=== PATIENT | male | born 1955 | race Hispanic/Latino ===

== ENCOUNTER 2018-08-13 08:07 | Emergency (ER) | payer BC ==
--- OUTSIDE RECORDS SUMMARY | 2018-08-13 08:10 | XMS REPORT ---
:1955 Author Organization [employer] Care Team Providers Name Role Phone Mccracken, Na Provider Role Unavailable Allergies No Known Allergies Problems Problem Type Condition Code Onset Dates Condition Status Problem Unspecified atherosclerosis of I70.209 Active [place] arteries of extremities, unspecified extremity Problem Memory changes R41.3 Active Problem Type 2 diabetes mellitus with E11.51 Active diabetic peripheral angiopathy without gangrene Problem Tremor R25.1 Active Problem Pain in right hip M25.551 Active Problem Multiple joint pain M25.50 Active Problem Intermittent claudication I73.9 Active Problem Allergic arthritis M13.89 Active Problem Pain in left hip M25.552 Active Problem 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
--- OUTSIDE RECORDS SUMMARY | 2018-08-13 08:10 | XMS REPORT ---
:1955 Author Organization [employer] Care Team Providers Name Role Phone Mccracken, Na Provider Role Unavailable Allergies No Known Allergies Problems Problem Type Condition Code Onset Dates Condition Status Problem Unspecified atherosclerosis of I70.209 Active [place] arteries of extremities, unspecified extremity Problem Memory [...]
--- OUTSIDE RECORDS SUMMARY | 2018-08-13 08:10 | XMS REPORT ---
:1955 Author Organization [employer] Care Team Providers Name Role Phone Mccracken, Na Provider Role Unavailable Allergies, Adverse Reactions, Alerts Substance Reaction Event Type Lyrica Info Not Available Drug Allergy Cipro Info Not Available Drug Allergy Problems Problem Type Condition Code Onset Dates Condition Status Assessment Multiple joint pain M25.50 Active Assessment Tremor R25.1 Active Assessment Intermittent claudication I73.9 Active Assessment Peripheral vascular disease I73.9 Active Problem Stented coronary artery Z95.5 Active Assessment 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 type 2 diabetes mellitus Problem Depression with anxiety F41.8 Active Assessment Depression with anxiety F41.8 Active Problem Unspecified atherosclerosis of I70.209 Active [place] arteries of extremities, unspecified extremity Problem Memory changes R41.3 Active Problem Type 2 diabetes mellitus with E11.51 Active diabetic peripheral angiopathy without gangrene Problem Tremor R25.1 Active Problem Pain in right hip M25.551 Active Assessment Type 2 diabetes mellitus with E11.51 Active diabetic peripheral angiopathy without gangrene Assessment HTN (hypertension) I10 Active Problem Multiple joint pain M25.50 Active Assessment Hyperlipidemia E78.5 Active Problem Intermittent claudication I73.9 Active Problem Allergic arthritis M13.89 Active Problem Pain in left hip M25.552 Active Problem 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 type 2 diabetes mellitus Problem Peripheral vascular disease I73.9 Active Problem CAD (coronary artery disease) I25.10 Active Assessment Unspecified atherosclerosis of I70.209 Active [place] arteries of extremities, unspecified extremity Problem Diabetes E11.9 Active Problem Hyperlipidemia E78.5 Active Problem HTN (hypertension) I10 Active Problem Obesity E66.9 Active Medications Medication Code Code Instructions Start End Status Dosage System Date Date Glyburide-Metfo [facility] 75183558053 5-500 MG Orally Active 1 tablet rmin twice a day with a meal Trulicity [facility] 15528138855 1.5 MG/0.5ML Active 1.5 mg Subcutaneous once a week Glucovance [facility] 23917467555 5-500 MG Orally Active 2 tablet twice a day with a meal Wellbutrin SR [facility] 99976175639 150 MG Active TAKE 1 TABLET BY MOUTH EVERY DAY BEFORE A MEAL Bystolic [facility] 81518579070 10 MG Orally Active 1 tablet Once a day Clopidogrel [facility] 60278621135 75 MG Active TAKE 1 Bisulfate TABLET DAILY Lantus SoloStar [facility] 95574907149 100 UNIT/ML Active 50 units Subcutaneous daily as directed Gabapentin [facility] 42555375145 100 MG Orally Inactive 1 capsule Three times a day Glyburide-Metfo [facility] 26989902780 5-500 MG Orally Active 2 tablet rmin twice a day with a meal Cilostazol [facility] 60717049291 100 MG Orally Active 1 tablet 30 once a day minutes before or 2 hours after breakfast and dinner Cozaar [facility] 76312217585 100 MG Orally Active 1 tablet Once a day BusPIRone HCl [facility] 86265865584 10 MG Orally Active 1 tablet Twice a day Aspir-81 [facility] 28472555405 81 MG Orally Active 1 tablet Once a day Gabapentin [facility] 45228918778 300 MG Orally Inactive 1 capsule three times a day Humalog KwikPen [facility] 41180733960 100 UNIT/ML Active 17 units Subcutaneous TID before meals Wellbutrin SR [facility] 02352227171 150 MG Orally Active 1 tablet twice daily Crestor [facility] 65601255800 10 MG Orally Active 1 tablet Once a day Zyrtec Allergy [facility] 79609350284 10 MG Orally Active 1 tablet Once a day Rosuvastatin [facility] 44323000683 10MG Active TAKE 1 Calcium TABLET DAILY AT BEDTIME Plavix [facility] 03273741821 75 MG Orally Active 1 tablet Once a day Results No Known Results Summary Purpose [employer]ClinicalWorks Submission
--- OUTSIDE RECORDS SUMMARY | 2018-08-13 08:10 | XMS REPORT ---
:1955 Author Organization [employer] Care Team Providers Name Role Phone Mccracken, Na Provider Role Unavailable Allergies, Adverse Reactions, Alerts Substance Reaction Event Type Lyrica Info Not Available Drug Allergy Cipro Info Not Available Drug Allergy Problems Problem Type Condition Code Onset Dates Condition Status Assessment Memory changes R41.3 Active Assessment Tremor R25.1 Active Assessment Intermittent claudication I73.9 Active Assessment Pain in right hip M25.551 Active Problem Hyperlipidemia E78.5 Active Assessment Pain in left hip M25.552 Active Problem Unspecified atherosclerosis of I70.209 Active [place] arteries of extremities, unspecified extremity Assessment Peripheral vascular disease I73.9 Active Problem Type 2 diabetes mellitus with E11.51 Active diabetic peripheral angiopathy without gangrene Problem Allergic arthritis M13.89 Active Problem Memory changes R41.3 Active Problem Tremor R25.1 Active Problem Pain in left hip M25.552 Active Assessment Hyperlipidemia E78.5 Active Assessment Depression with anxiety F41.8 Active Problem Pain in right hip M25.551 Active Assessment 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 type 2 diabetes mellitus Problem Depression with anxiety F41.8 Active Problem Stented coronary artery Z95.5 Active Problem 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 type 2 diabetes mellitus Problem Intermittent claudication I73.9 Active Assessment Unspecified atherosclerosis of I70.209 Active [place] arteries of extremities, unspecified extremity Problem Peripheral vascular disease I73.9 Active Assessment HTN (hypertension) I10 Active Assessment Type 2 diabetes mellitus with E11.51 Active diabetic peripheral angiopathy without gangrene Problem Obesity E66.9 Active Problem Diabetes E11.9 Active Problem CAD (coronary artery disease) I25.10 Active Problem HTN (hypertension) I10 Active Medications Medication Code Code Instructions Start End Status Dosage System Date Date Lantus SoloStar ND 07512038509 100 UNIT/ML Active as directed Subcutaneous Crestor ND 00792199820 10 MG Orally Active 1 tablet Once a day Gabapentin NDC 33013806456 100 MG Orally Inactive 1 capsule Three times a day Glyburide-Metfo [facility] 66596703849 5-500 MG Orally Active 1 tablet rmin twice a day with a meal Plavix [facility] 14965041712 75 MG Orally Active 1 tablet Once a day Wellbutrin SR [facility] 45068629376 150 MG Orally Active 1 tablet twice daily Trulicity [facility] 27212607421 1.5 MG/0.5ML Dec Active 1.5 mg Subcutaneous , once a week 2017 Glucovance [facility] 23193722230 5-500 MG Orally Active 2 tablet twice a day with a meal BusPIRone HCl [facility] 79015046513 10 MG Orally Active 1 tablet Twice a day Humalog KwikPen [facility] 12924341070 100 UNIT/ML Active 17 units Subcutaneous TID before meals Gabapentin [facility] 18145460949 300 MG Orally January 27, Active 1 capsule three times a 2017 day Zyrtec Allergy [facility] 81332436511 10 MG Orally Active 1 tablet Once a day Cilostazol [facility] 64673461807 100 MG Orally Active 1 tablet 30 once a day minutes before or 2 hours after breakfast and dinner Cozaar [facility] 97643129316 100 MG Orally Active 1 tablet Once a day Aspir-81 [facility] 09426133458 81 MG Orally Active 1 tablet Once a day Wellbutrin SR [facility] 31025741723 150 MG Active TAKE 1 TABLET BY MOUTH EVERY DAY BEFORE A MEAL Rosuvastatin [facility] 52329195932 10MG Active TAKE 1 Calcium TABLET DAILY AT BEDTIME Bystolic [facility] 04702784894 10 MG Orally Active 1 tablet Once a day Results No Known Results Summary Purpose [employer]ClinicalWorks Submission
--- OUTSIDE RECORDS SUMMARY | 2018-08-13 08:10 | XMS REPORT | Clinical Summary ---
:1955 Author Organization [facility] Address [address] [place] [address] Care Team Providers Name Role Phone Sophia Mccracken DO Primary Care Provider Allergies Active Allergy Reactions Severity Noted Date Comments Ciprofloxacin Other (See Comments) 03/07/2017 hallucination Latex Rash Low 03/07/2017 Morphine Other (See Comments) 03/07/2017 Hallucination Medications Medication Sig Dispensed Refills Start Date End Date Status glyburide-metformin Take 2 tablets 0 Active (GLUCOVANCE) 5-500 by mouth 2 mg per tablet (two) times a day with meals. dulaglutide Inject 0.75 mg 0 Active (TRULICITY) 0.75 under the skin mg/0.5 mL pen every 7 days. injector sundays INSULIN LISPRO Inject 15 0 Active (HUMALOG SUBQ) Units under the skin 3 (three) times a day. buPROPion XL Take 150 mg by 0 Active (WELLBUTRIN XL) 150 mouth every MG 24 hr tablet morning. busPIRone (BUSPAR) Take 10 mg by 0 Active 10 MG tablet mouth every morning. losartan (COZAAR) Take 100 mg by 0 Active 100 MG tablet mouth every morning. nebivolol Take 10 mg by 0 Active (BYSTOLIC) 10 MG mouth every tablet evening. CLOPIDOGREL Take 75 mg by 0 Active BISULFATE mouth daily. (CLOPIDOGREL ORAL) rosuvastatin Take 10 mg by 0 Active (CRESTOR) 10 MG mouth nightly. tablet cetirizine (ZyrTEC) Take 10 mg by 0 Active 10 MG tablet mouth nightly. aspirin (ECOTRIN) Take 81 mg by 0 Active 81 MG enteric mouth nightly. coated tablet insulin GLARGINE Inject 40 0 Active (LANTUS) 100 Units under unit/mL injection the skin (vial) nightly. INSULIN DETEMIR Inject 60 0 Discontinued (LEVEMIR SUBQ) Units under 8 the skin every evening. FOLIC Take 1 tablet 0 Discontinued ACID/MULTIVIT-MIN/L by mouth 8 UTEIN (CENTRUM daily. SILVER ORAL) acetaminophen-codei Take 1-2 30 tablet 0 07/13/2018 ne (TYLENOL WITH tablets by 8 CODEINE #3) 300-30 mouth every 4 mg per tablet (four) hours as needed for moderate pain for up to 14 days. gabapentin Take 1 capsule 90 capsule 0 07/13/2018 (NEURONTIN) 300 mg (300 mg total) 8 capsule by mouth 3 (three) times a day for 30 days. methocarbamol Take 1 tablet 120 tablet 0 07/13/2018 (ROBAXIN-750) 750 (750 mg total) 8 MG tablet by mouth 4 (four) times a day for 30 days. traMADol (ULTRAM) Take 1 tablet 60 tablet 0 07/13/2018 50 mg tablet (50 mg total) 8 by mouth every 6 (six) hours as needed for moderate pain for up to 14 days. ibuprofen Take 1 tablet 90 tablet 0 07/13/2018 (ADVIL,MOTRIN) 800 (800 mg total) 8 MG tablet by mouth 3 (three) times a day for 30 days. Active Problems Not on file Encounters Date Type Specialty Care Team Description 08/02/2018 Office Visit Orthopedic Surgery Karlos Sherwood, Acute pain of right MD shoulder (Primary Dx) 07/19/2018 Abstract Orthopedic Surgery Karlos Sherwood MD 07/14/2018 Telephone Arnulfo Joe MD 07/13/2018 Anesthesia Event Orthopedic Surgery Torrey Finney APRN 07/13/2018 Hospital Encounter Orthopedic Surgery Karlos Sherwood MD 07/13/2018 Surgery Orthopedic Surgery Karlos Sherwood, RIGHT SHOULDER ROTATOR CUFF REPAIR, SUBACROMIAL DECOMPRESSION 06/16/2018 Abstract Orthopedic Karlos Rowland MD 06/08/2018 Abstract Orthopedic Karlos Rowland MD 06/07/2018 Abstract Orthopedic Surgery Karlos Sherwood MD 06/02/2018 Hospital Encounter Radiology Aparna Martin Preop testing MD [place] 06/02/2018 Pre-Admit Testing Pre-Admission Karlos Sherwood Preop testing Appointment Testing (Primary Dx) 06/02/2018 Abstract Orthopedic Surgery Karlos Sherwood MD 06/02/2018 Transcribe Orders Pre-Admission Karlos Sherwood, Preop examination Testing (Primary Dx) 06/01/2018 Abstract Orthopedic Surgery Karlos Sherwood MD 05/24/2018 Office Visit Orthopedic Surgery Karlos Sherwood MD 05/17/2018 Office Visit Orthopedic Surgery Karlos Sherwood, Acute pain of right MD shoulder (Primary Dx) 05/16/2018 Abstract Orthopedic Surgery Karlos Sherwood MD after 08/12/2017 Family History Medical History Relation Name Comments Heart disease Father Relation Name Status Comments Father Social History Tobacco Use Types Packs/Day Years Used Date Former Smoker 0.5 35 Quit: 2000 Smokeless Tobacco: Never Used Comments: quit Alcohol Use Drinks/Week oz/Week Comments Yes 12 Cans of beer 7.2 Sex Assigned at Date Recorded Not on file Job Start Date Occupation Industry Not on file Not on file Not on file Travel History Travel Start Travel End No recent travel history available. Last Filed Vital Signs Vital Sign Reading Time Taken Blood Pressure 160/70 07/13/2018 6:25 PM PERFORMANCE ENGINEER Pulse 76 07/13/2018 6:25 PM PERFORMANCE ENGINEER Temperature 36.8 C (98.2 F) 07/13/2018 6:25 PM PERFORMANCE ENGINEER Respiratory Rate 16 07/13/2018 6:25 PM PERFORMANCE ENGINEER Oxygen Saturation 93% 07/13/2018 6:25 PM PERFORMANCE ENGINEER Inhaled Oxygen Concentration - - Weight 118 kg (260 lb) 07/13/2018 8:40 AM PERFORMANCE ENGINEER Height 180.3 cm (5' 11") 07/13/2018 8:40 AM PERFORMANCE ENGINEER Body Mass Index 36.26 07/13/2018 8:40 AM PERFORMANCE ENGINEER Plan of Treatment Date Type Specialty Care Team Description 09/27/2018 Office Visit Orthopedic Surgery Karlos Sherwood MD [address] [place] [address] Health Maintenance Due Date Last Done Comments COLON CANCER SCREENING 11/15/2007 SHINGLES VACCINES (1 of 2) 11/15/2007 INFLUENZA VACCINE Completed 05/29/2018 Implants Implanted Type Area Heel Seam Rubber Device Shelf Model / Identifier Expiration Serial / Date Lot Suture Paullina Iconix 2.3mm - [id number] Orthopedic Right: DIXIE 2019 [id number] / Implanted: Qty: 2 on 07/13/2018 by Karlos Sherwood MD Surgical Shoulder ENDOSCOPY DIV / Implants [id number] Suture Paullina Reelx 4.5mm Knotless - [id number] Orthopedic Right: DIXIE 04/26/2020 [id number] / Implanted: Qty: 1 on 07/13/2018 by Karlos Sherwood MD Surgical Shoulder ENDOSCOPY DIV / Implants [id number] Suture Paullina Reelx 4.5mm Knotless - [id number] Orthopedic Right: DIXIE 04/26/2020 [id number] / Implanted: Qty: 1 on 07/13/2018 by Karlos Sherwood MD Surgical Shoulder ENDOSCOPY DIV / Implants [id number] Suture Paullina Iconix 2.3mm - [id number] Orthopedic Right: DIXIE 2019 3910 [id number] / Implanted: Qty: 1 on 07/13/2018 by Karlos Sherwood MD Surgical Shoulder ENDOSCOPY DIV / Implants [id number] Drill Bit Iconix 2.3mm Disp - [id number] Orthopedic Right: DIXIE 2019 [id number] / Implanted: Qty: 1 on 07/13/2018 by Karlos Sherwood MD Surgical Shoulder ENDOSCOPY DIV / Implants [id number] Suture Paullina Reelx 4.5mm Knotless - [id number] Orthopedic Right: DIXIE 01/26/2020 3910 600 [id number] / Implanted: Qty: 1 on 07/13/2018 by Karlos Sherwood MD Surgical Shoulder ENDOSCOPY DIV / Implants [id number] Suture Paullina Reelx 4.5mm Knotless - [id number] Orthopedic Right: DIXIE 01/26/2020 3910 [id number] / Implanted: Qty: 1 on 07/13/2018 by Karlos Sherwood MD Surgical Shoulder ENDOSCOPY DIV / Implants [id number] Procedures Procedure Name Priority Date/Time Associated Diagnosis Comments ANESTHESIA INTUBATION Routine 07/13/2018 3:43 PM PERFORMANCE ENGINEER Procedure Note - Amando Olson CRNA - 07/13/2018 3:43 PM PERFORMANCE ENGINEER Airway Performed by: Amando Olson CRNA Authorized by: Frederick Alonso MD Location: OR Resident/PRE SCHOOL TEACHER/AA: Amando Olson CRNA Preoxygenated with 100% O2: Yes C-spine Precautions Maintained Throughout: Yes Mask Ventilation: Assisted mask Final Airway Type: Endotracheal airway Final Endotracheal Airway: ETT Cuffed: Yes Technique Used: Direct laryngoscopy Devices/Methods Used in Placement: Intubating stylet Insertion Site: Oral Blade Type: Duglas Laryngoscope Blade/Videolaryngoscope Blade Size: 4 ETT Size (mm): 8.0 Cuff at minimum occlusion pressure: Yes Measured from: Lips ETT to Lips (cm): 24 Placement Verified by: CO2 detection and direct visualization Laryngoscopic view: Grade IIa - partial view of glottis Number of Attempts at Approach: 1 Eyes taped on LOC, Two handed BMV with oral airway, DL x 1 with MAC4, atraumatic, oral mucosa and dentition intact. POC GLUCOSE Routine 07/13/2018 2:07 PM PERFORMANCE ENGINEER POC GLUCOSE Routine 07/13/2018 12:34 PM PERFORMANCE ENGINEER NH AN PERIPHERAL BLOCK Routine 07/13/2018 9:11 AM PERFORMANCE ENGINEER POST-OP PAIN Procedure Note - Frederick Alonso MD - 07/13/2018 9:11 AM PERFORMANCE ENGINEER Peripheral Block Performed by: Frederick Alonso MD Authorized by: Frederick Alonso MD Patient Location: Block room Start Time: 07/13/2018 9:04 AM End Time: 07/13/2018 9:10 AM Reason for Block: at surgeon's request, post-op pain management Staff: Anesthesiologist: Frederick Alonso MD Performed by: Anesthesiologist Preprocedure: patient identified, IV checked, site and side verified, risks and benefits discussed, procedure verified, surgical consent complete, patient position confirmed, monitors and equipment checked, pre-op evaluation complete and site marked Time Out Performed: 07/13/2018 8:59 AM Peripheral Nerve Block: Patient Position: Left lateral decubitus Prep: ChloraPrep Monitoring: Blood pressure monitoring, heart rate and continuous pulse oximetry Block Type: Interscalene Laterality: Right Injection Technique: Catheter insertion Procedures: ultrasound guided and nerve stimulator Ultrasound documentation: Printed/placed in chart and still images obtained Needle: Needle Type: Pajunk Needle Gauge: 22 G Needle Length: 10 cm Catheter size: 19g. Catheter at Skin Depth: 5 cm Assessment: Injection Assessment: Visualized needle/local anesthetic surrounding nerve , intermittent aspiration during local anesthetic administration, visualized pertinent vascular structures and nerves, no symptoms of intraneural/intravenous injection and needle tip visualized at all times during injection of medication Paresthesia Pain: None Heart Rate Change: No Slow Fractionated Injection: Yes Block outcome: No apparent complications, patient comfortable and patient tolerated procedure well POC GLUCOSE Routine 07/13/2018 8:48 AM Results for this PERFORMANCE ENGINEER procedure are in the results section. REPAIR, ROTATOR CUFF, 07/13/2018 7:30 AM Rotator cuff tear ARTHROSCOPIC PERFORMANCE ENGINEER Impingement syndrome of shoulder, right Case Notes "NAME ALERT" Special Needs "NAME ALERT", INTERSCALENE BLOCK WITH PAIN PUMP, BEACH CHAIR POSITION, SHOULDER ULTRA SLING XR CHEST 2 VW Routine 06/02/2018 11:10 AM Preop testing Results for this CDT procedure are in the results section. ECG PRE/POST OP Routine 06/02/2018 10:17 AM Preop testing Results for this CDT procedure are in the results section. ESTIMATED GFR Routine 06/02/2018 10:09 AM Results for this CDT procedure are in the results section. HEMOGLOBIN A1C Routine 06/02/2018 10:09 AM Preop testing Results for this CDT procedure are in the results section. COMPREHENSIVE METABOLIC Routine 06/02/2018 10:09 AM Preop testing Results for this PANEL CDT procedure are in the results section. HC COMPLETE BLD COUNT Routine 06/02/2018 10:09 AM Preop testing Results for this W/AUTO DIFF CDT procedure are in the results section. after 08/12/2017 Results POC glucose (07/13/2018 2:07 PM PERFORMANCE ENGINEER)Only the most recent of3 resultswithin the time period is included. POC glucose 119 (H) 65 - 99 mg/dL [facility] Comment: [facility] Notified RN Meter ID: [id number] Extension Educator: Scarlett Verdugo Performing Organization Address City/State/Zipcode Phone Number [facility] DEPARTMENT OF PATHOLOGY AND [address] [place] [address] GENOMIC MEDICINE [address] [address] XR Chest 2 Vw (06/02/2018 11:10 AM CDT) Narrative Performed At EXAMINATION:XR CHEST 2 VW [facility] CLINICAL HISTORY:Z01.818 Encounter for other preprocedural examination, pre-op hx CHF COMPARISON:07/26/2013 IMPRESSION: 1.Sternotomy wires are present. The heart size is normal. Coronary stents are noted. The aorta is minimally atherosclerotic. 2.There is no evidence of pulmonary edema. There are no focal consolidations or effusions. 3.Regional skeletal structures are within normal limits. Procedure Note Interface, Radiology Results Incoming - 06/02/2018 11:30 AM CDT EXAMINATION: XR CHEST 2 VW CLINICAL HISTORY: Z01.818 Encounter for other preprocedural examination, pre- op hx CHF COMPARISON: 07/26/2013 IMPRESSION: 1. Sternotomy wires are present. The heart size is normal. Coronary stents are noted. The aorta is minimally atherosclerotic. 2. There is no evidence of pulmonary edema. There are no focal consolidations or effusions. 3. Regional skeletal structures are within normal limits. Performing Organization Address [facility] Phone Number [facility] [address] [place] [address] ECG Pre/Post Op (06/02/2018 10:17 AM CDT) Ventricular rate 58 [facility] Atrial rate 58 [facility] NH interval 168 [facility] QRSD interval 166 [facility] QT interval 456 [facility] QTC interval 447 [facility] P axis 1 65 [facility] QRS axis 1 -66 [facility]USE T wave axis 24 [facility] EKG impression Sinus bradycardia-Left axis deviation-Right [facility] MUSE bundle branch block-Abnormal ECG- Performing Organization Address [facility] Phone Number [facility] MUSE [address] [place] [address] Estimated GFR (06/02/2018 10:09 AM CDT) Estimated GFR 76 mL/min/1.73 m2 [facility] DEPARTMENT OF Comment: PATHOLOGY AND GENOMIC CatergoryUnitsInterpretation MEDICINE G1 >=90 Normal or high G2 60-89Mildly decreased G2f74-83Brbqox to moderately decreased N3b91-79Pqxhzyfubt to severely decreased G4 15-29Severely decreased G5 <15Kidney failure The eGFR was calculated using the Chronic Kidney Disease Epidemiology Collaboration (CKD-EPI) equation. Interpretation is based on recommendations of the National Kidney Foundation-Kidney Disease Outcomes Quality Initiative (NKF-KDOQI) published in 2014. Specimen Plasma specimen Performing Organization Address City/[facility] Phone Number [facility] DEPARTMENT OF PATHOLOGY AND [address] [place] [address] [employer] [facility] CBC with platelet and differential (06/02/2018 10:09 AM CDT) WBC 8.22 4.50 - 11.00 k/uL [facility] DEPARTMENT OF PATHOLOGY AND GENOMIC MEDICINE RBC 4.61 4.40 - 6.00 m/uL [facility] DEPARTMENT OF PATHOLOGY AND GENOMIC MEDICINE HGB 13.7 (L) 14.0 - 18.0 g/dL [facility] DEPARTMENT OF PATHOLOGY AND GENOMIC MEDICINE HCT 42.3 41.0 - 51.0 % [facility] DEPARTMENT OF PATHOLOGY AND GENOMIC MEDICINE MCV 91.8 82.0 - 100.0 fL [facility] DEPARTMENT OF PATHOLOGY AND GENOMIC MEDICINE MCH 29.7 27.0 - 34.0 pg [facility] DEPARTMENT OF PATHOLOGY AND GENOMIC MEDICINE MCHC 32.4 31.0 - 37.0 g/dL [facility] DEPARTMENT OF PATHOLOGY AND GENOMIC MEDICINE RDW - SD 45.7 37.0 - 55.0 fL [facility] DEPARTMENT OF PATHOLOGY AND GENOMIC MEDICINE MPV 11.1 8.8 - 13.2 fL [facility] DEPARTMENT OF PATHOLOGY AND GENOMIC MEDICINE Platelet count 221 150 - 400 k/uL [facility] DEPARTMENT OF PATHOLOGY AND GENOMIC MEDICINE Nucleated RBC 0.00 /100 WBC [facility] DEPARTMENT OF PATHOLOGY AND GENOMIC MEDICINE Neutrophils 53.5 39.0 - 69.0 % [facility] DEPARTMENT OF PATHOLOGY AND GENOMIC MEDICINE Lymphocytes 27.6 25.0 - 45.0 % [facility] DEPARTMENT OF PATHOLOGY AND GENOMIC MEDICINE Monocytes 7.7 0.0 - 10.0 % [facility] DEPARTMENT OF PATHOLOGY AND GENOMIC MEDICINE Eosinophils 9.6 (H) 0.0 - 5.0 % [facility] DEPARTMENT OF PATHOLOGY AND GENOMIC MEDICINE Basophils 1.5 (H) 0.0 - 1.0 % [facility] DEPARTMENT OF PATHOLOGY AND GENOMIC MEDICINE Immature granulocytes 0.1Comment: 0.0 - 1.0 % [facility] DEPARTMENT OF "Immature PATHOLOGY AND GENOMIC granulocytes" MEDICINE (promyelocytes, myelocytes, metamyelocytes) Specimen Blood Performing Organization Address City/[facility]/Zipcode Phone Number [facility] DEPARTMENT OF PATHOLOGY AND [address] [place] [address] [place] [address] [facility] Hemoglobin A1c (06/02/2018 10:09 AM CDT) Hemoglobin A1C 7.3 (H) 4.0 - 5.6 % [facility] DEPARTMENT OF PATHOLOGY Comment: AND [facility] HbA1c cutoffs for diagnosing diabetes: 4.0% - 5.6%=normal 5.7% - 6.4%=increased risk for diabetes (prediabetes) >=6.5%=diabetes Goals for glycemic control (ADA 2016) < 7.0%Target for non adults with diabetes. More or less stringent targets may be appropriate for individual patients. <7.5% Target for Children and adolescents with type 1 diabetes. Specimen Blood Performing Organization Address City/State/Zipcode Phone Number [facility] DEPARTMENT OF PATHOLOGY AND [address] [place] [address] [facility] Comprehensive metabolic panel (06/02/2018 10:09 AM CDT) Sodium 141 135 - 148 mEq/L [facility] DEPARTMENT OF PATHOLOGY AND GENOMIC MEDICINE Potassium 4.8 3.5 - 5.0 mEq/L [facility] DEPARTMENT OF PATHOLOGY AND GENOMIC MEDICINE Chloride 102 98 - 112 mEq/L [facility] DEPARTMENT OF PATHOLOGY AND GENOMIC MEDICINE CO2 27 24 - 31 mEq/L [facility] DEPARTMENT OF PATHOLOGY AND GENOMIC MEDICINE Anion gap 12@ANIO 7 - 15 mEq/L [facility] DEPARTMENT OF PATHOLOGY AND GENOMIC MEDICINE BUN 15 8 - 23 mg/dL [facility] DEPARTMENT OF PATHOLOGY AND GENOMIC MEDICINE Creatinine 1.06 0.70 - 1.20 mg/dL [facility] DEPARTMENT OF PATHOLOGY AND GENOMIC MEDICINE Glucose 130 (H) 65 - 99 mg/dL [facility] DEPARTMENT OF PATHOLOGY AND GENOMIC MEDICINE Calcium 9.4 8.8 - 10.2 mg/dL [facility] DEPARTMENT OF PATHOLOGY AND GENOMIC MEDICINE Protein 6.9 6.3 - 8.3 g/dL [facility] DEPARTMENT OF Comment: PATHOLOGY AND GENOMIC [place] 4.6-7.0 g/dL MEDICINE 1 week 4.4-7.6 g/dL 7 months-1year5.1-7.3 g/dL 1-2 years5.6-7.5 g/dL >3 years6.0-8.0 g/dL 18-150 6.3-8.3 g/dL Albumin 3.8 3.5 - 5.0 g/dL [facility] DEPARTMENT OF PATHOLOGY AND GENOMIC MEDICINE A/G ratio 1.2 0.7 - 3.8 [facility] DEPARTMENT OF PATHOLOGY AND GENOMIC MEDICINE Alkaline phosphatase 34 (L) 40 - 129 U/L [facility] DEPARTMENT OF PATHOLOGY AND GENOMIC MEDICINE AST 34 10 - 50 U/L [facility] DEPARTMENT OF PATHOLOGY AND GENOMIC MEDICINE ALT 39 5 - 50 U/L [facility] DEPARTMENT OF PATHOLOGY AND GENOMIC MEDICINE Total bilirubin 0.3 0.0 - 1.2 mg/dL [facility] DEPARTMENT OF PATHOLOGY AND GENOMIC MEDICINE Specimen Plasma specimen Performing Organization Address City/State/Zipcode Phone Number [facility] DEPARTMENT OF PATHOLOGY AND [address] [place] [address] [employer] MEDICINE after 08/12/2017 Insurance Payer Benefit Plan / Group Subscriber ID Type Phone Address BS [facility] xxxxxxxxxxxx O [facility] [employer] xxxxxxxxxxxx O ([place]) [place] [address] Advance Directives Patient has advance care planning documents on file. For more information, please contact:[place] [id number] [place] [address]
--- OUTSIDE RECORDS SUMMARY | 2018-08-13 08:10 | XMS REPORT ---
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 Active Problem Memory changes R41.3 Active Problem Tremor R25.1 Active Problem Pain in left hip M25.552 Active Problem Pain in right hip M25.551 Active Problem Depression with anxiety F41.8 Active Problem Stented coronary artery Z95.5 Active Problem 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 type 2 diabetes mellitus Problem Intermittent claudication I73.9 Active Problem Peripheral vascular disease I73.9 Active Problem Obesity E66.9 Active Problem Diabetes E11.9 Active Problem CAD (coronary artery disease) I25.10 Active Problem Hyperlipidemia E78.5 Active Problem HTN (hypertension) I10 Active Problem Unspecified atherosclerosis of I70.209 Active [place] arteries of extremities, unspecified extremity Medications Medication Code Code Instructions Start End Date Status Dosage System Date Glyburide-Metf [facility] 87166813894 5-500 MG Orally Active 2 tablet ormin twice a day with a meal Results No Known Results Summary Purpose eClinicalWorks Submission
--- OUTSIDE RECORDS SUMMARY | 2018-08-13 08:10 | XMS REPORT ---
[...] Active Problem Peripheral vascular disease I73.9 Active Assessment 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 type 2 diabetes mellitus Problem Obesity E66.9 Active Problem Diabetes E11.9 Active Problem CAD (coronary artery disease) I25.10 Active Problem Hyperlipidemia E78.5 Active Problem HTN (hypertension) I10 Active Problem Unspecified atherosclerosis of I70.209 Active [place] arteries of extremities, unspecified extremity Medications Medication Code System Code Instructions Start End Date Status Dosage Date Gabapentin [facility] [id number] 300 MG Orally January 27, Active 1 capsule three times a day 2018 Results No Known Results Summary Purpose eClinicalWorks Submission
--- OUTSIDE RECORDS SUMMARY | 2018-08-13 08:10 | XMS REPORT | Continuity of Care Document ---
:1955 Author Organization Interface Problems Problem Status Onset Date Classification Date Comments Source Reported Medications Medication Details Route Status Patient Ordering Order Source Instructions Provider Date Allergies, Adverse Reactions, Alerts Substance Category Reaction Severity Reaction Status Date Comments Source type Reported Immunizations Immunization Date Given Site Status Last Updated Comments Source Results Order Results Value Reference Date Interpretation Comments Source Name Range Vital Signs Vital Sign Value Date Comments Source Encounters Location Location Encounter Encounter Reason Attending ADM DC Status Source Details Type Number For Provider Date Date Visit Outpatient [id number] SHAINA 12/09 Active [facility] [place] [facility] [id number] SHAINA 01/06 Active [facility] [place] [facility] [id number] SHAINA 04/07 [facility] [place] Procedures Procedure Code Date Perfomer Comments Source
[2018-08-13] MEDS ORDERED: cloNIDine HCl 0.1 MG TAB ONE (08:39)
[2018-08-13 09:05] LABS: Protime INR 1.07
[2018-08-13 09:14] LABS: Absolute Lymphocytes (CBC) 1.8 K/uL (0.7-4.9); Absolute Monocytes 0.5 K/uL (0.1-1.3); Absolute Neutrophil 3.3 K/uL (1.8-8.0); Basophils % 1.4 % (0-1.3); Eosinophils % 7.4 % (0-4.4); Lymphocytes % 29.4 % (15.3-44.8); MPV 9.4 fL (7.6-11.3); Monocytes % 7.5 % (3.3-12.3); RBC Red Blood Cell Count 4.24 M/uL (4.33-5.43)
[2018-08-13 09:19] LABS: ALT/SGPT 35 U/L (12-78); AST/SGOT 22 U/L (15-37); Albumin 3.7 g/dL (3.4-5.0); Alkaline Phosphatase 36 U/L (45-117); BUN Blood Urea Nitrogen 10 mg/dL (7-18); Bicarbonate 26 mmol/L (21-32); Bilirubin Direct 0.1 mg/dL (0-0.2); Bilirubin Total 0.3 mg/dL (0.2-1.0); Glucose Level 102 mg/dL (74-106); Magnesium 1.6 mg/dL (1.8-2.4); NT PRO-BNP 587 pg/mL (<125); Protein, Total 6.8 g/dL (6.4-8.2); Sodium Level 142 mmol/L (136-145); Troponin (Emerg Dept Use Only) < 0.02 ng/mL (0.0-0.045)
--- NOTE | 2018-08-13 09:35 | EDPHYS ---
Physician Documentation [facility] Name: Alexander Walker Age: 62 yrs Sex: Male : 1955 Arrival Date: 08/13/2018 Time: 08:11 Bed 20 Private MD: Sophia Mccracken ED Physician Landon Bennett HPI: 08/13 09:31 This 62 yrs old Male presents to ER via Ambulatory with complaints of High nh Blood Pressure, Headache, Neck Pain, >24Hrs Old. 09:31 The patient has elevated blood pressure and discovered this at a physician's office. nh Onset: The symptoms/episode began/occurred at an unknown time. Modifying factors: The symptoms are aggravated by activity, The symptoms are alleviated by remaining still. Associated signs and symptoms: Pertinent positives: headache, lightheadedness. Severity of symptoms: At its worst the blood pressure was moderate, just prior to arrival, in the emergency department the blood pressure is unchanged. The patient has not experienced similar symptoms in the past. The patient has not recently seen a physician. Historical: - Allergies: 08:55 Ciprofloxacin HCl; tw2 08:55 Latex, Natural Rubber; tw2 08:55 Ciprofloxacin; tw2 - Home Meds: 08:41 gyburide-metformin 5/500 mg 2tabs twice daily [Active]; trulicity 1.5 mg weekly tw2 [Active]; Lantus 100 unit/mL Sub-Q soln 40 units bedtime [Active]; Humalog 100 unit/mL Sub-Q soln 17 units before meals [Active]; bupropion HCl 150 mg Oral TbER 1 tab once daily [Active]; buspirone 10 mg Oral tab 1 tab 3 times per day for Generalized Anxiety Disorder [Active]; losartan potassium 100 mg daily [Active]; Bystolic 10 mg oral tab 1 tab once daily [Active]; clopidogrel 75 mg oral tab 1 tab once daily [Active]; rosuvastatin 10 mg oral tab 1 tab once daily [Active]; Zyrtec 10 mg Oral chew 1 tab once daily [Active]; aspirin 81 mg Oral TbEC 1 tab once daily [Active]; - PMHx: 08:41 Hypertension; Diabetes - IDDM; Hyperlipidemia; Anxiety; tw2 - PSHx: 08:18 Heart stents; triple bypass; Thyroidectomy; tw2 - Immunization history:: Adult Immunizations. - Social history:: Smoking status: . - Ebola Screening: : Patient denies travel to an Ebola-affected area in the 21 days before illness onset. ROS: 09:31 Constitutional: Negative for fever, chills, and weight loss, Eyes: Negative for injury, nh pain, redness, and discharge, ENT: Negative for injury, pain, and discharge, Cardiovascular: Negative for chest pain, palpitations, and edema, Respiratory: Negative for shortness of breath, cough, wheezing, and pleuritic chest pain, Abdomen/GI: Negative for abdominal pain, nausea, vomiting, diarrhea, and constipation, Back: Negative for injury and pain, : Negative for injury, bleeding, discharge, and swelling, MS/Extremity: Negative for injury and deformity, Skin: Negative for injury, rash, and discoloration, Psych: Negative for depression, anxiety, suicide ideation, homicidal ideation, and hallucinations, Allergy/Immunology: Negative for hives, rash, and allergies, Endocrine: Negative for neck swelling, polydipsia, polyuria, polyphagia, and marked weight changes, Hematologic/Lymphatic: Negative for swollen nodes, abnormal bleeding, and unusual bruising. 09:31 Neck: Positive for pain with movement. 09:31 Neuro: Positive for headache. Exam: 09:31 Constitutional: This is a well developed, well nourished patient who is awake, alert, nh and in no acute distress. Head/Face: Normocephalic, atraumatic. Eyes: Pupils equal round and reactive to light, extra-ocular motions intact. Lids and lashes normal. Conjunctiva and sclera are non-icteric and not injected. Cornea within normal limits. Periorbital areas with no swelling, redness, or edema. ENT: Nares patent. No nasal discharge, no septal abnormalities noted. Tympanic membranes are normal and external auditory canals are clear. Oropharynx with no redness, swelling, or masses, exudates, or evidence of obstruction, uvula midline. Mucous membranes moist. Neck: Trachea midline, no thyromegaly or masses palpated, and no cervical lymphadenopathy. Supple, full range of motion without nuchal rigidity, or vertebral point tenderness. No Meningismus. Chest/axilla: Normal chest wall appearance and motion. Nontender with no deformity. No lesions are appreciated. Cardiovascular: Regular rate and rhythm with a normal S1 and S2. No gallops, murmurs, or rubs. Normal PMI, no JVD. No pulse deficits. Respiratory: Lungs have equal breath sounds bilaterally, clear to auscultation and percussion. No rales, rhonchi or wheezes noted. No increased work of breathing, no retractions or nasal flaring. Abdomen/GI: Soft, non-tender, with normal bowel sounds. No distension or tympany. No guarding or rebound. No evidence of tenderness throughout. Back: No spinal tenderness. No costovertebral tenderness. Full range of motion. Skin: Warm, dry with normal turgor. Normal color with no rashes, no lesions, and no evidence of cellulitis. MS/ Extremity: Pulses equal, no cyanosis. Neurovascular intact. Full, normal range of motion. Neuro: Awake and alert, GCS 15, oriented to person, place, time, and situation. Cranial nerves II-XII grossly intact. Motor strength 5/5 in all extremities. Sensory grossly intact. Cerebellar exam normal. Normal gait. Psych: Awake, alert, with orientation to person, place and time. Behavior, mood, and affect are within normal limits. Vital Signs: 08:21 Weight 114.31 kg; Height 5 ft. 11 in. (180.34 cm); ss 08:25 BP 183 / 62; Pulse 64; Resp 14; Temp 97.7(O); Pulse Ox 97% on R/A; Pain 7/10; tw2 09:17 BP 150 / 58; Pulse 56; Resp 16; Pulse Ox 97% on R/A; tw2 09:52 BP 131 / 64; Pulse 54; Resp 16; Pulse Ox 97% on R/A; Pain 6/10; tw2 08:21 Body Mass Index 35.15 (114.31 kg, 180.34 cm) ss MDM: 08:18 Patient medically screened. nh 09:31 Data reviewed: vital signs, nurses notes, lab test result(s), radiologic studies, I nh have discussed the patient's presentation/case with the attending Emergency Department Physician; and as a result, I will discharge patient. Counseling: I had a detailed discussion with the patient and/or guardian regarding: the historical points, exam findings, and any diagnostic results supporting the discharge/admit diagnosis, the presence of at least one elevated blood pressure reading (>120/80) during this emergency department visit, lab results, radiology results, the need for outpatient follow up, to return to the emergency department if symptoms worsen or persist or if there are any questions or concerns that arise at home. Response to treatment: the patient's symptoms have markedly improved after treatment, and as a result, I will discharge patient. 08/13 08:35 Order name: Basic Metabolic Panel; Complete Time: 09:25 nh 08/13 08:35 Order name: CBC with Diff; Complete Time: : nh 08/13 08:35 Order name: LFT's; Complete Time: : md 08/13 08:35 Order name: Magnesium; Complete Time: 09: nh 08/13 08:35 Order name: NT PRO-BNP; Complete Time: : nh 08/13 08:35 Order name: PT-INR; Complete Time: : md 08/13 08:28 Order name: EKG - Nurse/Tech; Complete Time: 08:34 nh 08/13 08:35 Order name: Troponin (emerg Dept Use Only); Complete Time: 09:25 md 08/13 08:35 Order name: XRAY Chest (1 view) md 08/13 08:35 Order name: Cardiac monitoring; Complete Time: 08:44 nh 08/13 08:35 Order name: IV Saline Lock; Complete Time: 08:54 nh 08/13 08:35 Order name: Labs collected and sent; Complete Time: 08:54 md 08/13 08:35 Order name: O2 Per Protocol; Complete Time: 08:44 nh 08/13 08:35 Order name: O2 Sat Monitoring; Complete Time: 08:44 nh Administered Medications: 08:36 Drug: cloNIDine 0.1 mg Route: PO; tw2 09:53 Follow up: Response: No adverse reaction; Blood pressure is lowered tw2 Disposition: 11:46 Co-signature as Attending Physician, Landon Bennett MD. rn Disposition: 08/13/18 09:34 Discharged to Home. Impression: Essential (primary) hypertension, Torticollis. - Condition is Stable. - Discharge Instructions: Hypertension, Acute Torticollis, Adult. - Prescriptions for Cyclobenzaprine 10 mg Oral Tablet - take 1 tablet by ORAL route every 8 hours As needed; 30 tablet. Clonidine 0.1 mg Oral Tablet - take 1 tablet by ORAL route every 12 hours As needed Take only if blood pressure is over 160/90; 30 tablet. - Medication Reconciliation Form, Thank You Letter, Antibiotic Education, Prescription Opioid Use form. - Follow up: Private Physician; When: 2 - 3 days; Reason: Recheck today's complaints. - Problem is new. - Symptoms are unchanged. Signatures: Dispatcher [employer] EDMS Brenda Bello, CONSUMER LOAN MANAGER CONSUMER LOAN MANAGER md Landon Bennett MD MD rn Smirch, Shelby, RN RN Nieves Talley RN RN tw2 Corrections: (The following items were deleted from the chart) 09:53 09:34 08/13/2018 09:34 Discharged to Home. Impression: Essential (primary) tw2 hypertension; Torticollis. Condition is Stable. Forms are Medication Reconciliation Form, Thank You Letter, Antibiotic Education, Prescription Opioid Use. Follow up: Private Physician; When: 2 - 3 days; Reason: Recheck today's complaints. Problem is new. Symptoms are unchanged. md
--- NOTE | 2018-08-13 09:35 | ER ---
Nurse's Notes [facility] Name: Alexander Walker Age: 62 yrs Sex: Male : 1955 Arrival Date: 08/13/2018 Time: 08:11 Bed 20 Private MD: Sophia Mccracken Diagnosis: Essential (primary) hypertension;Torticollis Presentation: 08/13 08:21 Presenting complaint: Patient states: Pain to occipital area that began yesterday. Pt ss reports pain increases when bending over and/ or moving head side to side. History of recent R shoulder repair. Also c/o high blood pressure despite taking prescribed BP medication. Transition of care: patient was not received from another setting of care. Onset of symptoms was August 12, 2018. Risk Assessment: Do you want to hurt yourself or someone else? Patient reports no desire to harm self or others. Initial Sepsis Screen: Does the patient meet any 2 criteria? No. Patient's initial sepsis screen is negative. Does the patient have a suspected source of infection? No. Patient's initial sepsis screen is negative. Care prior to arrival: None. 08:21 Method Of Arrival: Ambulatory ss 08:21 Acuity: RENY 3 ss Triage Assessment: 08:25 Headache History: The patient has had previous headaches and this one is different than tw2 previous episodes, and this one is more severe than previous episodes. General: Appears in no apparent distress. Behavior is calm, cooperative, appropriate for age. Pain: Complains of pain in neck and headache Pain currently is 7 out of 10 on a pain scale. Pain began 2-3 days ago. Also complains of no other associated symptoms. Neuro: Level of Consciousness is awake, alert, obeys commands, Oriented to person, place, situation. Cardiovascular: Denies chest pain, shortness of breath. Historical: - Allergies: 08:55 Ciprofloxacin HCl; tw2 08:55 Latex, Natural Rubber; tw2 08:55 Ciprofloxacin; tw2 - Home Meds: 08:41 gyburide-metformin 5/500 mg 2tabs twice daily [Active]; trulicity 1.5 mg weekly tw2 [Active]; Lantus 100 unit/mL Sub-Q soln 40 units bedtime [Active]; Humalog 100 unit/mL Sub-Q soln 17 units before meals [Active]; bupropion HCl 150 mg Oral TbER 1 tab once daily [Active]; buspirone 10 mg Oral tab 1 tab 3 times per day for Generalized Anxiety Disorder [Active]; losartan potassium 100 mg daily [Active]; Bystolic 10 mg oral tab 1 tab once daily [Active]; clopidogrel 75 mg oral tab 1 tab once daily [Active]; rosuvastatin 10 mg oral tab 1 tab once daily [Active]; Zyrtec 10 mg Oral chew 1 tab once daily [Active]; aspirin 81 mg Oral TbEC 1 tab once daily [Active]; - PMHx: 08:41 Hypertension; Diabetes - IDDM; Hyperlipidemia; Anxiety; tw2 - PSHx: 08:18 Heart stents; triple bypass; Thyroidectomy; tw2 - Immunization history:: Adult Immunizations. - Social history:: Smoking status: . - Ebola Screening: : Patient denies travel to an Ebola-affected area in the 21 days before illness onset. Screenin:18 Abuse screen: Denies threats or abuse. Nutritional screening: No deficits noted. tw2 Tuberculosis screening: No symptoms or risk factors identified. Fall Risk None identified. Assessment: 08:42 General: Appears in no apparent distress. well groomed, Behavior is calm, cooperative, tw2 appropriate for age. Pain: Complains of pain in neck and headache. Neuro: Level of Consciousness is awake, alert, obeys commands, Oriented to person, place, time, situation. Cardiovascular: Denies chest pain, shortness of breath, Heart tones S1 S2 Capillary refill < 3 seconds Patient's skin is warm and dry. Respiratory: Airway is patent Respiratory effort is even, unlabored, Respiratory pattern is regular, symmetrical, Breath sounds are clear bilaterally. GI: No signs and/or symptoms were reported involving the gastrointestinal system. Abdomen is round non-distended, Bowel sounds present X 4 quads. : No signs and/or symptoms were reported regarding the genitourinary system. EENT: No signs and/or symptoms were reported regarding the EENT system. Derm: No signs and/or symptoms reported regarding the dermatologic system. Musculoskeletal: Circulation, motion, and sensation intact. Range of motion: intact in all extremities. 09:17 Reassessment: Patient appears in no apparent distress at this time. No changes from tw2 previously documented assessment. Patient and/or family updated on plan of care and expected duration. Pain level reassessed. Patient is alert, oriented x 3, equal unlabored respirations, skin warm/dry/pink. 09:52 Reassessment: Patient appears in no apparent distress at this time. No changes from tw2 previously documented assessment. Patient and/or family updated on plan of care and expected duration. Pain level reassessed. Patient is alert, oriented x 3, equal unlabored respirations, skin warm/dry/pink. Patient states feeling better. Vital Signs: 08:21 Weight 114.31 kg; Height 5 ft. 11 in. (180.34 cm); ss 08:25 BP 183 / 62; Pulse 64; Resp 14; Temp 97.7(O); Pulse Ox 97% on R/A; Pain 7/10; tw2 09:17 BP 150 / 58; Pulse 56; Resp 16; Pulse Ox 97% on R/A; tw2 09:52 BP 131 / 64; Pulse 54; Resp 16; Pulse Ox 97% on R/A; Pain 6/10; tw2 08:21 Body Mass Index 35.15 (114.31 kg, 180.34 cm) ED Course: 08:11 Patient arrived in ED. sb2 08:11 Sophia Mccracken MD is Private Physician. sb2 08:17 Nieves Talley, PK is Primary Nurse. tw2 08:17 Bed in low position. Call light in reach. Adult w/ patient. bitumen plant operator on. Pulse tw2 ox on. NIBP on. 08:18 Brenda Bello FNP is PHCP. nh 08:18 Landon Bennett MD is Attending Physician. nh 08:21 Arm band placed on right wrist. ss 08:25 Triage completed. ss 08:34 EKG done, by ED staff, reviewed by Brenda MUNIZ. dh3 08:52 XRAY Chest (1 view) In Process Unspecified. EDMS 08:54 Inserted saline lock: 20 gauge in right antecubital area, using aseptic technique. tw2 Blood collected. 09:52 No provider procedures requiring assistance completed. IV discontinued, intact, tw2 bleeding controlled, No redness/swelling at site. Pressure dressing applied. Administered Medications: 08:36 Drug: cloNIDine 0.1 mg Route: PO; tw2 09:53 Follow up: Response: No adverse reaction; Blood pressure is lowered tw2 Outcome: 09:34 Discharge ordered by . mt 09:52 Discharged to home ambulatory, with significant other. tw2 09:52 Condition: stable 09:52 Discharge instructions given to patient, significant other, Instructed on discharge instructions, follow up and referral plans. no drinking with medication, no driving heavy equipment, medication usage, Demonstrated understanding of instructions, follow-up care, medications, Prescriptions given X 2. 09:53 Patient left the ED. tw2 Signatures: Dispatcher [employer] EDMS Brenda Bello, RN WOMEN SERVICES RN WOMEN SERVICES Trinh Raymundo RN RN ss Wise, Tara, RN RN tw2 Precious Driscoll 3 Lynda Walker 2
--- NOTE | 2018-08-13 13:07 | RAD REPORT ---
EXAM DESCRIPTION: RAD - Chest Single View - 08/13/2018 8:51 am CLINICAL HISTORY: CHEST PAIN Chest pain. COMPARISON: CHEST SINGLE VIEW dated 12/13/2010; CHEST PA AND LAT 2 VIEW dated 09/21/2010 FINDINGS: Portable technique limits examination quality. The lungs are grossly clear. The heart is normal in size. Sternotomy wires are present. No displaced fractures. IMPRESSION: No acute intrathoracic process suspected.
--- NOTE | 2018-08-14 12:00 | EKG ---
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
== END 2018-08-13 09:53 | disposition home or self-care (01) ==
LOC: ER 08:07
DX: I10 Essential (primary) hypertension (principal); M43.6 Torticollis; E11.9 Type 2 diabetes mellitus without complications; E78.5 Hyperlipidemia, unspecified; F41.9 Anxiety disorder, unspecified; Z79.82 Long term (current) use of aspirin; Z79.4 Long term (current) use of insulin; Z88.1 Allergy status to other antibiotic agents; Z88.8 Allergy status to other drugs, medicaments and biological substances; Z91.040 Latex allergy status; Z91.048 Other nonmedicinal substance allergy status; Z95.818 Presence of other cardiac implants and grafts
CPT/HCPCS: 36415; 71045; 80048; 80076; 83735; 83880; 84484; 85025; 85610; 93005; 99284

== ENCOUNTER 2019-05-03 11:23 | Emergency (ER) | payer BC ==
--- OUTSIDE RECORDS SUMMARY | 2019-05-03 11:26 | XMS REPORT ---
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
--- OUTSIDE RECORDS SUMMARY | 2019-05-03 11:26 | XMS REPORT | Continuity of Care Document ---
:1955 Author Organization [employer] Care Team Providers Name Role Phone Skulpt Unavailable Unavailable Problems No Data Provided for This Section Medications No Data Provided for This Section Allergies, Adverse Reactions, Alerts No Known Medication Allergies Immunizations No Data Provided for This Section Results No Data Provided for This Section Pathology Reports No Data Provided for This Section Diagnostic Reports No Data Provided for This Section Consultation Notes No Data Provided for This Section Discharge Summaries No Data Provided for This Section History and Physicals No Data Provided for This Section Vital Signs No Data Provided for This Section Encounters Location Location Encounter Encounter Reason Attending ADM DC Status Source Details Type Number For Provider Date Date Visit Outpatient [id number] SHAINA 12/09 Active [facility] Outpatient [id number] SHAINA 01/06 Active [facility] Out[facility] [id number] SHAINA 04/07 Active [facility] Procedures No Data Provided for This Section Assessment and Plan No Data Provided for This Section Plan of Care No Data Provided for This Section Social History No Data Provided for This Section Family History No Data Provided for This Section Advance Directives No Data Provided for This Section Functional Status No Data Provided for This Section
--- OUTSIDE RECORDS SUMMARY | 2019-05-03 11:26 | XMS REPORT | Clinical Summary ---
:1955 Author Organization [facility] Address [address] [place] [address] Care Team Providers Name Role Phone Sophia Mccracken DO Primary Care Provider Allergies Active Allergy Reactions Severity Noted Date Comments Ciprofloxacin Other (See Comments) 03/07/2017 hallucination Latex Rash Low 03/07/2017 Morphine Other (See Comments) 03/07/2017 Hallucination Medications Medication Sig Dispensed Refills Start Date End Date Status glyburide-metformin Take 2 0 Active (GLUCOVANCE) 5-500 tablets by mg per tablet mouth 2 (two) times a day with meals. dulaglutide Inject 0.75 0 Active (TRULICITY) 0.75 mg under the mg/0.5 mL pen skin every 7 injector days. sundays INSULIN LISPRO Inject 15 0 Active (HUMALOG SUBQ) Units under the skin 3 (three) times a day. losartan (COZAAR) Take 100 mg 0 Active 100 MG tablet by mouth every morning. nebivolol Take 10 mg by 0 Active (BYSTOLIC) 10 MG mouth every tablet evening. CLOPIDOGREL Take 75 mg by 0 Active BISULFATE mouth daily. (CLOPIDOGREL ORAL) rosuvastatin Take 10 mg by 0 Active (CRESTOR) 10 MG mouth tablet nightly. cetirizine (ZyrTEC) Take 10 mg by 0 Active 10 MG tablet mouth nightly. aspirin (ECOTRIN) Take 81 mg by 0 Active 81 MG enteric mouth coated tablet nightly. insulin GLARGINE Inject 40 0 Active (LANTUS) 100 Units under unit/mL injection the skin (vial) nightly. amLODIPine 0 02/12/2019 Active (NORVASC) 5 mg tablet UNABLE TO FIND [facility] OTC - 0 Active 1 PO QHS cyanocobalamin 1000mcg q d x 30 mL 2 03/28/2019 Active 1,000 mcg/mL 7days; injection 1000mcg weekly x 4wks; 1000 mcg q month x 12 months (include needles and syringes) INSULIN DETEMIR Inject 60 0 06/02/20 Discontinued (LEVEMIR SUBQ) Units under 18 the skin every evening. buPROPion XL Take 150 mg 0 03/05/20 Discontinued (WELLBUTRIN XL) 150 by mouth 19 (Med List MG 24 hr tablet every Cleanup) morning. busPIRone (BUSPAR) Take 10 mg by 0 03/05/20 Discontinued 10 MG tablet mouth every 19 (Med List morning. Cleanup) FOLIC Take 1 tablet 0 06/02/20 Discontinued ACID/MULTIVIT-MIN/L by mouth 18 UTEIN (CENTRUM daily. SILVER ORAL) acetaminophen-codei Take 1-2 30 tablet 0 07/13/2018 07/27/20 ne (TYLENOL WITH tablets by 18 CODEINE #3) 300-30 mouth every 4 mg per tablet (four) hours as needed for moderate pain for up to 14 days. gabapentin Take 1 90 capsule 0 07/13/2018 08/12/20 (NEURONTIN) 300 mg capsule (300 18 capsule mg total) by mouth 3 (three) times a day for 30 days. methocarbamol Take 1 tablet 120 tablet 0 07/13/2018 08/12/20 (ROBAXIN-750) 750 (750 mg 18 MG tablet total) by mouth 4 (four) times a day for 30 days. traMADol (ULTRAM) Take 1 tablet 60 tablet 0 07/13/2018 07/27/20 50 mg tablet (50 mg total) 18 by mouth every 6 (six) hours as needed for moderate pain for up to 14 days. ibuprofen Take 1 tablet 90 tablet 0 07/13/2018 08/12/20 (ADVIL,MOTRIN) 800 (800 mg 18 MG tablet total) by mouth 3 (three) times a day for 30 days. methocarbamol Take 1 tablet 90 tablet 0 09/27/2018 10/28/19 (ROBAXIN) 500 MG (500 mg 19 tablet total) by mouth 4 (four) times a day for 30 days. Active Problems No known active problems Encounters Date Type Specialty Care Team Description 03/28/2019 Procedure visit Neurology Leonardo Naranjo MD Bilateral carpal tunnel syndrome; Paresthesia 03/28/2019 Procedure visit Neurology Leonardo Naranjo MD Memory loss or impairment 03/28/2019 Refill Neurology Naomi Bedolla MA 03/22/2019 Orders Only Neurology Leonardo Naranjo MD 03/21/2019 Hospital Encounter Radiology Leonardo Naranjo MD Memory loss or impairment 03/05/2019 Office Visit Neurology Leonardo Naranjo MD Memory loss or impairment (Primary Dx); Bilateral carpal tunnel syndrome; Paresthesia; Essential tremor 09/27/2018 Office Visit Orthopedic Karlos Rowland, Acute pain of right shoulder (Primary Dx); Complete tear of right rotator cuff 09/06/2018 Abstract Orthopedic Karlos Rowland MD 08/02/2018 Office Visit Orthopedic Karlos Rowland, Acute pain of right shoulder (Primary Dx); Complete tear of right rotator cuff 07/19/2018 Abstract Orthopedic Karlos oRwland MD 07/14/2018 Telephone Pain Medicine Sumava ResortsArnulfo MD 07/13/2018 Anesthesia Event Orthopedic Surgery Frederick Alonso MD Jatzlau, Amybeth, APRN 07/13/2018 Hospital Encounter Orthopedic Surgery Karlos Sherwood MD 07/13/2018 Surgery Orthopedic Surgery Karlos Sherwood, RIGHT SHOULDER MD ROTATOR CUFF REPAIR, SUBACROMIAL DECOMPRESSION 06/16/2018 Abstract Orthopedic Karlos Rowland MD 06/08/2018 Abstract Orthopedic Surgery Karlos Sherwood MD 06/07/2018 Abstract Orthopedic Surgery Karlos Sherwood MD 06/02/2018 Hospital Encounter Radiology Aparna Martin Preop testing MD [place] 06/02/2018 Pre-Admit Testing Pre-Admission Karlos Sherwood Preop testing Appointment Testing (Primary Dx) 06/02/2018 Abstract Orthopedic Karlos Rowland MD 06/02/2018 Transcribe Orders Pre-Admission Karlos Sherwood Preop examination Testing (Primary Dx) 06/01/2018 Abstract Orthopedic Surgery Karlos Sherwood MD 05/24/2018 Office Visit Orthopedic Karlos Rowland, Complete tear of right rotator cuff (Primary Dx); Subcoracoid bursitis of right shoulder 05/17/2018 Office Visit Orthopedic Karlos Rowland, Acute pain of right shoulder (Primary Dx); Incomplete tear of right rotator cuff 05/16/2018 Abstract Orthopedic Surgery Karlos Sherwood MD after 05/02/2018 Family History Medical History Relation Name Comments Heart disease Father Relation Name Status Comments Father Social History Tobacco Use Types Packs/Day Years Used Date Former Smoker 0.5 35 Quit: 2000 Smokeless Tobacco: Never Used Comments: quit Alcohol Use Drinks/Week oz/Week Comments Yes 12 Cans of beer 12.0 Sex Assigned at Date Recorded Not on file Job Start Date Occupation Industry Not on file Not on file Not on file Travel History Travel Start Travel End No recent travel history available. Last Filed Vital Signs Vital Sign Reading Time Taken Comments Blood Pressure 146/68 03/05/2019 8:18 AM CDT Pulse 64 03/05/2019 8:18 AM CDT Temperature 36.8 C (98.2 F) 07/13/2018 6:25 PM SILK PRINTER Respiratory Rate 16 07/13/2018 6:25 PM SILK PRINTER Oxygen Saturation 93% 07/13/2018 6:25 PM SILK PRINTER Inhaled Oxygen Concentration - - Weight 116 kg (255 lb 3.2 oz) 03/05/2019 8:18 AM CDT Height 180.3 cm (5' 11") 03/05/2019 8:18 AM CDT Body Mass Index 35.59 03/05/2019 8:18 AM CDT Plan of Treatment Date Type Specialty Care Team Description 06/08/2019 [place] [address] [address] Health Maintenance Due Date Last Done Comments COLONOSCOPY SCREENING 11/15/2007 SHINGLES VACCINES (#1) 11/15/2007 INFLUENZA VACCINE 03/15/2019 05/29/2018 Implants Implanted Type Area Breaker Machine Tender Device Shelf Model / Identifier Expiration Serial / Date Lot Suture Monroe Iconix 2.3mm - [id number] Orthopedic Right: DIXIE 2019 [id number] / Implanted: Qty: 2 on 07/13/2018 by Karlos Sherwood MD at [facility] Surgical Shoulder ENDOSCOPY DIV / Implants [id number] Suture Monroe Reelx 4.5mm Knotless - [id number] Orthopedic Right: DIXIE 04/26/2020 [id number] / Implanted: Qty: 1 on 07/13/2018 by Karlos Sherwood MD at [facility] Surgical Shoulder ENDOSCOPY DIV / Implants [id number] Suture Monroe Reelx 4.5mm Knotless - [id number] Orthopedic Right: DIXIE 04/26/2020 [id number] / Implanted: Qty: 1 on 07/13/2018 by Karlos Sherwood MD at [facility] Surgical Shoulder ENDOSCOPY DIV / Implants [id number] Suture Monroe Iconix 2.3mm - [id number] Orthopedic Right: DIXIE 2019 3910 [id number] / Implanted: Qty: 1 on 07/13/2018 by Karlos Sherwood MD at [facility] Surgical Shoulder ENDOSCOPY DIV / Implants [id number] Drill Bit Iconix 2.3mm Disp - [id number] Orthopedic Right: DIXIE 2019 3910 500 [id number] / Implanted: Qty: 1 on 07/13/2018 by Karlos Sherwood MD at [facility] Surgical Shoulder ENDOSCOPY DIV / Implants [id number] Suture Monroe Reelx 4.5mm Knotless - [id number] Orthopedic Right: DIXIE 01/26/2020 3910 600 [id number] / Implanted: Qty: 1 on 07/13/2018 by Karlos Sherwood MD at [facility] Surgical Shoulder ENDOSCOPY DIV / Implants [id number] Suture Monroe Reelx 4.5mm Knotless - [id number] Orthopedic Right: DIXIE 01/26/2020 [id number] 600 [id number] / Implanted: Qty: 1 on 07/13/2018 by Karlos Sherwood MD at [facility] Surgical Shoulder ENDOSCOPY DIV / Implants [id number] Procedures Procedure Name Priority Date/Time Associated Comments Diagnosis RPR SCREEN Routine 03/22/2019 3:21 Results for this PM CDT procedure are in the results section. VITAMIN B1 LEVEL Routine 03/22/2019 3:21 Results for this PM CDT procedure are in the results section. VITAMIN B12 LEVEL Routine 03/22/2019 3:21 Results for this PM CDT procedure are in the results section. THYROID STIMULATING Routine 03/22/2019 3:21 Results for this HORMONE PM CDT procedure are in the results section. FOLATE LEVEL Routine 03/22/2019 3:21 Results for this PM CDT procedure are in the results section. SEDIMENTATION RATE Routine 03/22/2019 3:21 Results for this PM CDT procedure are in the results section. MRI BRAIN WO CONTRAST Routine 03/21/2019 2:48 Memory loss or Results for this PM CDT impairment procedure are in the results section. ANESTHESIA INTUBATION Routine 07/13/2018 3:43 PM SILK PRINTER Procedure Note - Amando Olson CRNA - 07/13/2018 3:43 PM SILK PRINTER Airway Performed by: Amando Olson CRNA Authorized by: Frederick Alonso MD Location: OR Resident/COPY CUTTER/AA: Amando Olson CRNA Preoxygenated with 100% O2: [...] intact. POC GLUCOSE Routine 07/13/2018 2:07 PM Results for this SILK PRINTER procedure are in the results section. POC GLUCOSE Routine 07/13/2018 12:34 PM Results for this SILK PRINTER procedure are in the results section. REPAIR, ROTATOR CUFF, 07/13/2018 11:09 AM Rotator cuff tear ARTHROSCOPIC SILK PRINTER Impingement syndrome of shoulder, right Case Notes "NAME ALERT" Special Needs "NAME ALERT", INTERSCALENE BLOCK WITH PAIN PUMP, BEACH CHAIR POSITION, SHOULDER ULTRA SLING ID AN PERIPHERAL BLOCK POST-OP PAIN Routine 07/13/2018 9:11 AM SILK PRINTER Procedure Note - Frederick Alonso - 07/13/2018 9:11 AM SILK PRINTER Peripheral Block Performed by: Frederick Alonso MD [...] Routine 07/13/2018 8:48 AM Results for this SILK PRINTER procedure are in the results section. XR CHEST 2 VW Routine 06/02/2018 11:10 [...] procedure are in the results section. after 05/02/2018 Results RPR screen (03/22/2019 3:21 PM CDT) RPR (monitor) NON-REACTIVE NON-REACTIVE [facility] w/refl titer [place] Specimen Narrative Performed At FASTING:NO [facility] FASTING: NO Resulting Agency Comment Performing Organization Information: Site ID: RGA Name: [facility] Address: [address] [place] [id number] Director: Mina Hernandez Performing Organization Address [facility] Phone Number [place] [address] Sedimentation rate (03/22/2019 3:21 PM CDT) Pathologist [facility] Sedimentation rate 9 < OR=20 mm/h [facility] [employer] [place] Specimen Narrative Performed At FASTING:NO [facility] FASTING: NO Resulting Agency Comment Performing Organization Information: Site ID: [facility] Name: [facility] Address: [address] [place] [phone] Director: Mina Hernandez Performing Organization Address [facility] Phone Number [facility] [place] [address] Thyroid stimulating hormone (03/22/2019 3:21 PM CDT) Pathologist [facility] TSH 1.83 0.40 - 4.50 mIU/L [facility] Specimen Narrative Performed At FASTING:NO [facility] FASTING: NO Resulting Agency Comment Performing Organization Information: Site ID: [facility] Name: [facility] Address: [address] [place] [phone] Director: Mina Hernandez Performing Organization Address [facility] Phone Number [facility] [place] [phone] Vitamin B1 level (03/22/2019 3:21 PM CDT) Pathologist [facility] Vitamin B1 21 8 - 30 nmol/L [facility] Comment: [place]STR[place] Vitamin supplementation within 24 hours prior to blood draw may affect the accuracy of results. This test was developed and its analytical performance characteristics have been determined by [facility]. It has not been cleared or approved by FDA. This assay has been validated pursuant to the CLIA regulations and is used for clinical purposes. Specimen Narrative Performed At FASTING:NO [facility] FASTING: NO Resulting Agency Comment Performing Organization Information: Site ID: [facility] Name: [facility] Address: [address] [place] [address] Director: Cj Sauer M.D., Ph.D Performing Organization Address [facility] Phone Number CX FROILAN CASTRO [address] [place] [address] Folate level (03/22/2019 3:21 PM CDT) Folate 10.8 ng/mL [employer] Comment: [place] Reference Range Low: <3.4 Borderline:3.4- 5.4 Normal:> 5.4 Specimen Narrative Performed At FASTING:NO [facility] FASTING: NO Resulting Agency Comment Performing Organization Information: Site ID: [facility] Name: [facility] Address: [address] [place] [phone] Director: Mina Hernandez Performing Organization Address [facility] Phone Number CX [address] [address] Vitamin B12 level (03/22/2019 3:21 PM CDT) Pathologist [facility] Vitamin B12 227 200 - 1,100 [facility] Comment: pg/mL [place] Please Note: Although the reference range for vitamin B12 is 200-1100 pg/mL, it has been reported that between 5 and 10% of patients with values between 200 and 400 pg/mL may experience neuropsychiatric and hematologic abnormalities due to occult B12 deficiency; less than 1% of patients with values above 400 pg/mL will have symptoms. Specimen Narrative Performed At FASTING:NO [facility] FASTING: NO Resulting Agency Comment Performing Organization Information: Site ID: [facility] Name: [facility] Address: [address] [place] [phone] Director: Mina Hernandez Performing Organization Address [facility] Phone Number CX [address] [address] MRI Brain Wo Contrast (03/21/2019 2:48 PM CDT) Specimen Narrative Performed At EXAMINATION:MRI BRAIN WO CONTRAST [facility] CLINICAL HISTORY:R41.3 Other amnesia, memory loss COMPARISON:None. IMAGING DEVICE: 3.0 Angela MR. 3-D reconstructions were processed off-line TECHNIQUE: Multiplanar and multisequence MRI imaging of the brain obtained. CONTRAST:No IV contrast administered. FINDINGS: CEREBRUM: *Exam shows a 2 x 4 cm (AP by transverse) arachnoid cyst in the right temporal fossa resulting in mild remodeling of the ipsilateral temporal lobe with no evidence of underlying gliosis, asymmetric atrophy or other signal abnormalities. *No evident edema, hemorrhage, mass, midline shift or acute infarction *There is mild nonspecific symmetric cerebral volume loss with subsequent enlargement of the subarachnoid spaces and lateral ventricles with minimal subcortical and periventricular chronic ischemic white matter changes. *No other significant findings or abnormalities identified in the cerebral hemispheres, basal ganglia or midline structures CEREBELLUM: *No evident edema, hemorrhage, mass, midline shift or acute infarction *No evidence of inappropriate atrophy. BRAINSTEM: *No evident edema, hemorrhage, mass, midline shift or acute infarction *No evidence of inappropriate atrophy. CSF SPACES: *Ventricles, cisterns, and sulci are slightly enlarged presumably due to central volume loss. *No hydrocephalus, subarachnoid hemorrhage, or mass. VASCULAR: *Limited assessment with no evident abnormalities of cabazon of Leach and dural sinuses. SKULL: *No focal lesions, mass, displaced fractures or other visible lesion. SINUSES: *Limited views demonstrate subcentimeter nonobstructing mucous retention cyst in the bilateral maxillary sinuses, no mass, significant mucosal thickening or fluid. ORBITS: *Limited views shows no focal lesion fracture or other visible lesion. OTHER: *No other significant findings. IMPRESSION: 1. Exam shows no evidence of acute infarct, hemorrhage, mass effect, midline shift, hydrocephalus or brain herniation 2. There is a 2 x 4 cm arachnoid cyst in the right temporal fossa 3. Mild nonspecific symmetric supratentorial volume loss with minimal subcortical and periventricular microangiopathic changes 4. No other significant findings [facility]-[id number] Procedure Note Interface, Radiology Results Incoming - 03/21/2019 2:59 PM CDT EXAMINATION: MRI BRAIN WO CONTRAST CLINICAL HISTORY: R41.3 Other amnesia, memory loss COMPARISON: None. IMAGING DEVICE: 3.0 Angela MR. 3-D reconstructions were processed off-line TECHNIQUE: Multiplanar and multisequence MRI imaging of the brain obtained. CONTRAST: No IV contrast administered. FINDINGS: CEREBRUM: * Exam shows a 2 x 4 cm (AP by transverse) arachnoid cyst in the right temporal fossa resulting in mild remodeling of the ipsilateral temporal lobe with no evidence of underlying gliosis, asymmetric atrophy or other signal abnormalities. * No evident edema, hemorrhage, mass, midline shift or acute infarction * There is mild nonspecific symmetric cerebral volume loss with subsequent enlargement of the subarachnoid spaces and lateral ventricles with minimal subcortical and periventricular chronic ischemic white matter changes. * No other significant findings or abnormalities identified in the cerebral hemispheres, basal ganglia or midline structures CEREBELLUM: * No evident edema, hemorrhage, mass, midline shift or acute infarction * No evidence of inappropriate atrophy. BRAINSTEM: * No evident edema, hemorrhage, mass, midline shift or acute infarction * No evidence of inappropriate atrophy. CSF SPACES: * Ventricles, cisterns, and sulci are slightly enlarged presumably due to central volume loss. * No hydrocephalus, subarachnoid hemorrhage, or mass. VASCULAR: * Limited assessment with no evident abnormalities of cabazon of Leach and dural sinuses. SKULL: * No focal lesions, mass, displaced fractures or other visible lesion. SINUSES: * Limited views demonstrate subcentimeter nonobstructing mucous retention cyst in the bilateral maxillary sinuses, no mass, significant mucosal thickening or fluid. ORBITS: * Limited views shows no focal lesion fracture or other visible lesion. OTHER: * No other significant findings. IMPRESSION: 1. Exam shows no evidence of acute infarct, hemorrhage, mass effect, midline shift, hydrocephalus or brain herniation 2. There is a 2 x 4 cm arachnoid cyst in the right temporal fossa 3. Mild nonspecific symmetric supratentorial volume loss with minimal subcortical and periventricular microangiopathic changes 4. No other significant findings [facility]-[id number] Performing Organization Address [facility] Phone Number [address] [address] POC glucose (07/13/2018 2:07 PM SILK PRINTER)Only the most recent of3 resultswithin the time period is included. POC glucose 119 (H) 65 - 99 mg/dL [facility] Comment: [facility] Notified RN Meter ID: [id number] Clerk Of Court: Scarlett Verdugo Specimen Performing Organization Address [facility]/Zipcode Phone Number [facility] DEPARTMENT OF PATHOLOGY AND [address] [place] [address] GENOMIC MEDICINE [address] [address] XR Chest 2 Vw (06/02/2018 11:10 AM CDT) Specimen Narrative Performed At EXAMINATION:XR CHEST 2 VW [facility] CLINICAL HISTORY:Z01.818 Encounter for other preprocedural examination, pre-op hx CHF COMPARISON:07/26/2013 IMPRESSION: 1.Sternotomy wires are present. The heart size is normal. Coronary stents are noted. The aorta is minimally atherosclerotic. 2.There is no evidence of pulmonary edema. There are no focal consolidations or effusions. 3.Regional skeletal structures are within normal limits. Procedure Note Hm Interface, Radiology Results Incoming - 06/02/2018 11:30 [...] are within normal limits. Performing Organization Address [facility] Phone Number [facility] [address] [place] [address] ECG Pre/Post Op (06/02/2018 10:17 AM CDT) Ventricular rate 58 [facility] MUSE Atrial rate 58 [facility] MUSE ID interval 168 [facility] MUSE QRSD interval 166 [facility] MUSE QT interval 456 [facility] MUSE QTC interval 447 [facility] MUSE P axis 1 65 [facility] MUSE QRS axis 1 -66 [facility] MUSE T wave axis 24 [facility] MUSE EKG impression Sinus bradycardia-Left [facility] MUSE axis deviation-Right bundle branch block-Abnormal ECG- Specimen Performing Organization Address [facility] Phone Number [facility] MUSE [address] [place] [address] Estimated GFR (06/02/2018 10:09 AM CDT) Estimated GFR 76 mL/min/1.73 [facility] DEPARTMENT OF Comment: m2 PATHOLOGY AND CatergoryUnitsInterpretation GENOMIC MEDICINE G1 >=90 Normal or high G2 60-89Mildly decreased [id number] to moderately decreased [id number] to severely decreased G4 15-29Severely decreased G5 <15Kidney failure The eGFR was calculated using the Chronic Kidney Disease Epidemiology Collaboration (CKD-EPI) equation. Interpretation is based on recommendations of the National Kidney Foundation-Kidney Disease Outcomes Quality Initiative (NKF-KDOQI) published in 2014. Specimen Plasma specimen Performing Organization Address City/[facility]/Zipcode Phone Number [facility] DEPARTMENT OF PATHOLOGY AND [address] [place] [address] [facility] CBC with platelet and differential (06/02/2018 10:09 AM CDT) WBC 8.22 4.50 - 11.00 [facility] DEPARTMENT OF k/uL PATHOLOGY AND GENOMIC MEDICINE RBC 4.61 4.40 - 6.00 [facility] DEPARTMENT OF m/uL PATHOLOGY AND GENOMIC MEDICINE HGB 13.7 (L) 14.0 - 18.0 [facility] DEPARTMENT OF g/dL PATHOLOGY AND GENOMIC MEDICINE HCT 42.3 41.0 - 51.0 % [facility] DEPARTMENT OF PATHOLOGY AND GENOMIC MEDICINE MCV 91.8 82.0 - 100.0 [facility] DEPARTMENT OF fL PATHOLOGY AND GENOMIC MEDICINE MCH 29.7 27.0 - 34.0 [facility] DEPARTMENT OF PATHOLOGY AND GENOMIC MEDICINE MCHC 32.4 31.0 - 37.0 [facility] DEPARTMENT OF g/dL PATHOLOGY AND GENOMIC MEDICINE RDW - SD 45.7 37.0 - 55.0 [facility] DEPARTMENT OF fL PATHOLOGY AND GENOMIC MEDICINE MPV 11.1 8.8 - 13.2 fL [facility] DEPARTMENT OF PATHOLOGY AND GENOMIC MEDICINE Platelet count 221 150 - 400 [facility] DEPARTMENT OF k/uL PATHOLOGY AND GENOMIC MEDICINE Nucleated RBC 0.00 /100 WBC [facility] DEPARTMENT OF PATHOLOGY AND GENOMIC MEDICINE Neutrophils 53.5 39.0 - 69.0 % [facility] DEPARTMENT OF PATHOLOGY AND GENOMIC MEDICINE Lymphocytes 27.6 25.0 - 45.0 % [facility] DEPARTMENT OF PATHOLOGY AND GENOMIC MEDICINE Monocytes 7.7 0.0 - 10.0 % [facility] DEPARTMENT OF PATHOLOGY AND GENOMIC MEDICINE Eosinophils 9.6 (H) 0.0 - 5.0 % [facility] DEPARTMENT OF PATHOLOGY AND GENOMIC MEDICINE Basophils 1.5 (H) 0.0 - 1.0 % [facility] DEPARTMENT OF PATHOLOGY AND GENOMIC MEDICINE Immature granulocytes 0.1Comment: 0.0 - 1.0 % [facility] DEPARTMENT OF "Immature PATHOLOGY AND granulocytes" GENOMIC MEDICINE (promyelocytes , myelocytes, metamyelocytes ) Specimen Blood Performing Organization Address City/[facility]/Zipcode Phone Number [facility] DEPARTMENT OF PATHOLOGY AND [address] [place] [address] [facility] Hemoglobin A1c (06/02/2018 10:09 AM CDT) Hemoglobin A1C 7.3 (H) 4.0 - 5.6 % [facility] DEPARTMENT OF Comment: PATHOLOGY AND HbA1c cutoffs for diagnosing diabetes: GENOMIC MEDICINE 4.0% - 5.6%=normal 5.7% - 6.4%=increased risk for diabetes (prediabetes) >=6.5%=diabetes Goals for glycemic control (ADA 2016) < 7.0%Target for non adults with diabetes. More or less stringent targets may be appropriate for individual patients. <7.5% Target for Children and adolescents with type 1 diabetes. Specimen Blood Performing Organization Address City/State/Zipcode Phone Number [facility] DEPARTMENT OF PATHOLOGY AND [address] [place] [address] [facility] Comprehensive metabolic panel (06/02/2018 10:09 AM CDT) Sodium 141 135 - 148 [facility] DEPARTMENT OF mEq/L PATHOLOGY AND GENOMIC MEDICINE Potassium 4.8 3.5 - 5.0 [facility] DEPARTMENT OF mEq/L PATHOLOGY AND GENOMIC MEDICINE Chloride 102 98 - 112 mEq/L [facility] DEPARTMENT OF PATHOLOGY AND GENOMIC MEDICINE CO2 27 24 - 31 mEq/L [facility] DEPARTMENT OF PATHOLOGY AND GENOMIC MEDICINE Anion gap 12@ANIO 7 - 15 mEq/L [facility] DEPARTMENT OF PATHOLOGY AND GENOMIC MEDICINE BUN 15 8 - 23 mg/dL [facility] DEPARTMENT OF PATHOLOGY AND GENOMIC MEDICINE Creatinine 1.06 0.70 - 1.20 [facility] DEPARTMENT OF mg/dL PATHOLOGY AND GENOMIC MEDICINE Glucose 130 (H) 65 - 99 mg/dL [facility] DEPARTMENT OF PATHOLOGY AND GENOMIC MEDICINE Calcium 9.4 8.8 - 10.2 [facility] DEPARTMENT OF mg/dL PATHOLOGY AND GENOMIC MEDICINE Protein 6.9 6.3 - 8.3 g/dL [facility] DEPARTMENT OF Comment: PATHOLOGY AND 4.6-7.0 g/dL [facility] MEDIC[facility] 1 week 4.4-7.6 g/dL 7 months-1year5.1-7.3 g/dL 1-2 years5.6-7.5 g/dL >3 years6.0-8.0 g/dL 18-150 6.3-8.3 g/dL Albumin 3.8 3.5 - 5.0 g/dL [facility] DEPARTMENT OF PATHOLOGY AND GENOMIC MEDICINE A/G ratio 1.2 0.7 - 3.8 [facility] DEPARTMENT OF PATHOLOGY AND GENOMIC MEDICINE Alkaline phosphatase 34 (L) 40 - 129 U/L [facility] DEPARTMENT OF PATHOLOGY AND GENOMIC MEDICINE AST 34 10 - 50 U/L [facility] DEPARTMENT OF PATHOLOGY AND GENOMIC MEDICINE ALT 39 5 - 50 U/L [facility] DEPARTMENT OF PATHOLOGY AND GENOMIC MEDICINE Total bilirubin 0.3 0.0 - 1.2 [facility] DEPARTMENT OF mg/dL PATHOLOGY AND GENOMIC MEDICINE Specimen Plasma specimen Performing Organization Address City/State/Zipcode Phone Number [facility] DEPARTMENT OF PATHOLOGY AND [address] [place] [id number] [facility] after 05/02/2018 (Home) [place] [address] Advance Directives For more information, please contact: [phone] Type Date Recorded Patient Material Requirements Planning Manager Explanation Advance Directives, Living 07/13/2018 7:31 AM Will and Medical Power of [employer] Cell Designer
--- OUTSIDE RECORDS SUMMARY | 2019-05-03 11:27 | XMS REPORT ---
:1955 Author Organization eClinicalWorks Care Team Providers Name Role Phone Mccracken, Na Provider Role Unavailable Allergies No Known Allergies Problems Problem Type Condition Code Onset Dates Condition Status Problem Unspecified atherosclerosis of I70.209 Active [place] arteries of extremities, unspecified extremity Problem Memory [...]
--- OUTSIDE RECORDS SUMMARY | 2019-05-03 11:27 | XMS REPORT ---
:1955 Author Organization eClinicalWorks Care Team Providers Name Role Phone Mccracken, Na Provider Role Unavailable Allergies, Adverse Reactions, Alerts Substance Reaction Event Type Lyrica Info Not Available Drug Allergy Cipro Info Not Available Drug Allergy Problems Problem Type Condition Code Onset Dates Condition Status Assessment Cervicalgia M54.2 Active Assessment Multiple joint pain M25.50 Active Assessment Tremor R25.1 Active Assessment Intermittent claudication I73.9 Active Assessment Peripheral vascular disease I73.9 Active Assessment Anemia, unspecified type D64.9 Active Problem Stented coronary artery Z95.5 Active Assessment 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 type 2 diabetes mellitus Problem Depression with anxiety F41.8 Active Assessment Depression with anxiety F41.8 Active Problem Unspecified atherosclerosis of I70.209 Active [place] arteries of extremities, unspecified extremity Problem Memory changes R41.3 Active Problem Type 2 diabetes mellitus with E11.51 Active diabetic peripheral angiopathy without gangrene Problem Tremor R25.1 Active Problem Pain in right hip M25.551 Active Assessment Unspecified atherosclerosis of I70.209 Active [place] arteries of extremities, unspecified extremity Assessment HTN (hypertension) I10 Active Problem Multiple joint pain M25.50 Active Assessment Hyperlipidemia E78.5 Active Problem Intermittent claudication I73.9 Active Problem Allergic arthritis M13.89 Active Problem Pain in left hip M25.552 Active Problem 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 type 2 diabetes mellitus Problem Peripheral vascular disease I73.9 Active Problem CAD (coronary artery disease) I25.10 Active Assessment Type 2 diabetes mellitus with E11.51 Active diabetic peripheral angiopathy without gangrene Problem Diabetes E11.9 Active Problem Hyperlipidemia E78.5 Active Problem HTN (hypertension) I10 Active Problem Obesity E66.9 Active Medications Medication Code Code Instructions Start End Status Dosage System Date Date Crestor ND 03557907366 10 MG Orally Active 1 tablet Once a day Trulicity ND 14535678445 1.5 MG/0.5ML Active 1.5 mg Subcutaneous once a week Plavix ND 84514813584 75 MG Orally Active 1 tablet Once a day Cilostazol [facility] 22549391862 100 MG Orally Active 1 tablet 30 once a day minutes before or 2 hours after breakfast and dinner Cozaar [facility] 57221640695 100 MG Orally Active 1 tablet Once a day Rosuvastatin [facility] 78454841412 10MG Active TAKE 1 Calcium TABLET DAILY AT BEDTIME BuPROPion HCl [facility] 12580273362 150 MG Active TAKE 1 ER (SR) TABLET ONCE A DAY Lantus SoloStar [facility] 25695198158 100 UNIT/ML Active 50 units Subcutaneous daily as directed Zyrtec Allergy [facility] 70807396836 10 MG Orally Active 1 tablet Once a day Wellbutrin SR [facility] 85625051058 150 MG Orally Active 1 tablet twice daily Wellbutrin SR [facility] 16737510635 150 MG Active TAKE 1 TABLET BY MOUTH EVERY DAY BEFORE A MEAL Clopidogrel [facility] 95759085674 75 MG Active TAKE 1 Bisulfate TABLET DAILY Gabapentin [facility] 40481517796 300 MG Orally Inactive 1 capsule three times a day BusPIRone HCl [facility] 73468908251 10 MG Orally Active 1 tablet Twice a day Bystolic [facility] 16360186213 20 MG Orally Active 1 tablet Once a day Aspir-81 [facility] 40593882696 81 MG Orally Active 1 tablet Once a day Glucovance [facility] 56016473544 5-500 MG Orally Active 2 tablet twice a day with a meal Glyburide-Metfo [facility] 45484368179 5-500 MG Orally Active 2 tablet rmin twice a day with a meal Humalog KwikPen [facility] 29778714891 100 UNIT/ML Active 17 units Subcutaneous TID before meals Glyburide-Metfo [facility] 47040745808 5-500 MG Orally Active 1 tablet rmin twice a day with a meal Trulicity [facility] 79901743014 1.5 MG/0.5ML Active INJECT 1.5 MG ONCE A WEEK UNDER THE SKIN Results No Known Results Summary Purpose eClinicalWorks Submission
--- OUTSIDE RECORDS SUMMARY | 2019-05-03 11:27 | XMS REPORT ---
:1955 Author Organization eClinicalWorks Care Team Providers Name Role Phone Mccracken, Na Provider Role Unavailable Allergies No Known Allergies Problems Problem Type Condition Code Onset Dates Condition Status Problem Unspecified atherosclerosis of I70.209 Active [place] arteries of extremities, unspecified extremity Problem Memory [...]
--- OUTSIDE RECORDS SUMMARY | 2019-05-03 11:27 | XMS REPORT ---
[...] Active Problem Unspecified atherosclerosis of I70.209 Active [place] arteries of extremities, unspecified extremity Problem Memory [...] Active Assessment Unspecified atherosclerosis of I70.209 Active [place] arteries of extremities, unspecified extremity Problem Diabetes E11.9 Active Problem Hyperlipidemia E78.5 Active Problem HTN (hypertension) I10 Active Problem Obesity E66.9 Active Medications Medication Code Code Instructions Start End Status Dosage System Date Date Glyburide-Metfo [facility] 36359755589 5-500 MG Orally Active 1 tablet rmin twice a day with a meal Trulicity [facility] 65901820903 1.5 MG/0.5ML Active 1.5 mg Subcutaneous once a week Glucovance [facility] 16705489403 5-500 MG Orally Active 2 tablet twice a day with a meal Wellbutrin SR [facility] 80198335506 150 MG Active TAKE 1 TABLET BY MOUTH EVERY DAY BEFORE A MEAL Bystolic [facility] 12266133661 10 MG Orally Active 1 tablet Once a day Clopidogrel [facility] 86491539658 75 MG Active TAKE 1 Bisulfate TABLET DAILY Lantus SoloStar [facility] 17340122502 100 UNIT/ML Active 50 units Subcutaneous daily as directed Gabapentin [facility] 03695667659 100 MG Orally Inactive 1 capsule Three times a day Glyburide-Metfo [facility] 74462936173 5-500 MG Orally Active 2 tablet rmin twice a day with a meal Cilostazol [facility] 67957242008 100 MG Orally Active 1 tablet 30 once a day minutes before or 2 hours after breakfast and dinner Cozaar [facility] 17170212296 100 MG Orally Active 1 tablet Once a day BusPIRone HCl [facility] 07433790180 10 MG Orally Active 1 tablet Twice a day Aspir-[address] [facility] 11025753902 81 MG Orally Active 1 tablet Once a day Gabapentin [facility] 78489466380 300 MG Orally Inactive 1 capsule three times a day Humalog KwikPen [facility] 35588471968 100 UNIT/ML Active 17 units Subcutaneous TID before meals Wellbutrin SR [facility] 68743791674 150 MG Orally Active 1 tablet twice daily Crestor [facility] 33135511683 10 MG Orally Active 1 tablet Once a day Zyrtec Allergy [facility] 42370222575 10 MG Orally Active 1 tablet Once a day Rosuvastatin [facility] 65983802525 10MG Active TAKE 1 Calcium TABLET DAILY AT BEDTIME Plavix [facility] 25984640593 75 MG Orally Active 1 tablet Once a day Results No Known Results Summary Purpose eClinicalWorks Submission
--- OUTSIDE RECORDS SUMMARY | 2019-05-03 11:27 | XMS REPORT ---
:1955 Author Organization eClinicalWorks Care Team Providers Name Role Phone Mccracken, Na Provider Role Unavailable Allergies No Known Allergies Problems Problem Type Condition Code Onset Dates Condition Status Problem Unspecified atherosclerosis of I70.209 Active [place] arteries of extremities, unspecified extremity Problem Memory [...]
--- OUTSIDE RECORDS SUMMARY | 2019-05-03 11:27 | XMS REPORT ---
:1955 Author Organization eClinicalWorks Care Team Providers Name Role Phone Mccracken, Na Provider Role Unavailable Allergies, Adverse Reactions, Alerts Substance Reaction Event Type Lyrica Info Not Available Drug Allergy Cipro Info Not Available Drug Allergy Problems Problem Type Condition Code Onset Dates Condition Status Problem Unspecified atherosclerosis of I70.209 Active [place] arteries of extremities, unspecified extremity Problem Memory changes R41.3 Active Problem Type 2 diabetes mellitus with E11.51 Active diabetic peripheral angiopathy without gangrene Problem Tremor R25.1 Active Assessment Peripheral vascular disease I73.9 Active Problem Pain in right hip M25.551 Active Assessment Intermittent claudication I73.9 Active Assessment Tremor R25.1 Active Problem Multiple joint pain M25.50 Active Problem Intermittent claudication I73.9 Active Problem Allergic arthritis M13.89 Active Problem Pain in left hip M25.552 Active Problem 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 type 2 diabetes mellitus Problem Peripheral vascular disease I73.9 Active Problem CAD (coronary artery disease) I25.10 Active Assessment HTN (hypertension) I10 Active Problem Diabetes E11.9 Active Problem Hyperlipidemia E78.5 Active Problem HTN (hypertension) I10 Active Problem Stented coronary artery Z95.5 Active Assessment Multiple joint pain M25.50 Active Problem Obesity E66.9 Active Problem Depression with anxiety F41.8 Active Medications Medication Code Code Instructions Start End Status Dosage System Date Date Plavix [facility] 01875719345 75 MG Orally Active 1 tablet Once a day Cilostazol [facility] 64111370709 100 MG Orally Active 1 tablet 30 once a day minutes before or 2 hours after breakfast and dinner BusPIRone HCl [facility] 86241813201 10 MG Active TAKE 1 TABLET TWICE A DAY Trulicity [facility] 94087272882 1.5 MG/0.5ML Active INJECT 1.5 MG ONCE A WEEK UNDER THE SKIN Zyrtec Allergy [facility] 90304403668 10 MG Orally Active 1 tablet Once a day Wellbutrin SR [facility] 78127972496 150 MG Orally Active 1 tablet twice daily Clopidogrel [facility] 14029807875 75 MG Active TAKE 1 Bisulfate TABLET DAILY Aspir-81 [facility] 41929346640 81 MG Orally Active 1 tablet Once a day Bystolic [facility] 75459662072 20 MG Orally Active 1 tablet Once a day in PM Crestor [facility] 36333197079 10 MG Orally Active 1 tablet Once a day Clonidine HCl [facility] 17311333262 0.1 MG Orally Sep 21, Active 1 tablet twice a day 2018 hold if BP less 150 /90 Glyburide-Metfo [facility] 74481108046 5-500 MG Orally Active 1 tablet rmin twice a day with a meal Humalog KwikPen [facility] 02575907020 100 UNIT/ML Active 17 units TID Subcutaneous before meals Lantus SoloStar [facility] 99192219055 100 UNIT/ML Active 50 units Subcutaneous daily as directed Rosuvastatin [facility] 48969916217 10MG Active TAKE 1 Calcium TABLET DAILY AT BEDTIME Cozaar [facility] 34823788914 100 MG Orally Active 1 tablet Once a day in AM Clonidine HCl [facility] 21344887053 0.1 MG Orally Sep 21, Active 1 tablet twice a day 2018 hold if BP less 150 /90 Glyburide-Metfo [facility] 80622888054 5-500 MG Orally Active 2 tablet rmin twice a day with a meal Trulicity [facility] 99985184806 1.5 MG/0.5ML Active 1.5 mg Subcutaneous once a week BuPROPion HCl [facility] 11401646986 150 MG Active TAKE 1 ER (SR) TABLET ONCE A DAY Glucovance [facility] 03603936664 5-500 MG Orally Active 2 tablet twice a day with a meal Wellbutrin SR [facility] 95813686842 150 MG Active TAKE 1 TABLET BY MOUTH EVERY DAY BEFORE A MEAL Results No Known Results Summary Purpose eClinicalWorks Submission
--- OUTSIDE RECORDS SUMMARY | 2019-05-03 11:27 | XMS REPORT ---
[...] Active Problem Unspecified atherosclerosis of I70.209 Active [place] arteries of extremities, unspecified extremity Medications Medication Code Code Instructions Start End Date Status Dosage System Date Glyburide-Metf [facility] 30559616906 5-500 MG Orally Active 2 tablet ormin twice a day with a meal Results No Known Results Summary Purpose eClinicalWorks Submission
--- OUTSIDE RECORDS SUMMARY | 2019-05-03 11:27 | XMS REPORT ---
:1955 Author Organization eClinicalWorks Care Team Providers Name Role Phone Mccracken, Na Provider Role Unavailable Allergies, Adverse Reactions, Alerts Substance Reaction Event Type Lyrica Info Not Available Drug Allergy Cipro Info Not Available Drug Allergy Problems Problem Type Condition Code Onset Dates Condition Status Assessment Hyperlipidemia E78.5 Active Assessment Screening for colon cancer Z12.11 Active Assessment Stented coronary artery Z95.5 Active Assessment CAD (coronary artery disease) I25.10 Active Assessment Multiple joint pain M25.50 Active Problem Stented coronary artery Z95.5 Active Assessment Tremor R25.1 Active Problem Depression with anxiety F41.8 Active Assessment Intermittent claudication I73.9 Active Problem Unspecified atherosclerosis of I70.209 Active [place] arteries of extremities, unspecified extremity Problem Memory changes R41.3 Active Problem Type 2 diabetes mellitus with E11.51 Active diabetic peripheral angiopathy without gangrene Problem Tremor R25.1 Active Problem Pain in right hip M25.551 Active Assessment Type 2 diabetes mellitus with E11.51 Active diabetic peripheral angiopathy without gangrene Assessment Peripheral vascular disease I73.9 Active Problem Multiple joint pain M25.50 Active Assessment Unspecified atherosclerosis of I70.209 Active [place] arteries of extremities, unspecified extremity Problem Intermittent claudication I73.9 Active Problem Allergic [...] Start End Status Dosage System Date Date Clonidine HCl ND 66089669970 0.1 MG Orally Inactive 1 tablet twice a day hold if BP less 150 /90 Cilostazol ND 51865448265 100 MG Orally Active 1 tablet 30 once a day minutes before or 2 hours after breakfast and dinner Amlodipine ND 85058600997 5 MG Orally March Active 1 tablet Besylate Once a day 2018 Wellbutrin SR [facility] 62188135043 150 MG Orally Active 1 tablet twice daily Humalog KwikPen [facility] 07209742851 100 UNIT/ML Active 17 units Subcutaneous TID before meals Rosuvastatin [facility] 80120518900 10MG Active TAKE 1 Calcium TABLET DAILY AT BEDTIME BusPIRone HCl [facility] 33111231980 10 MG Orally Active 1 tablet Twice a day Bystolic [facility] 51272036696 20 MG Orally Active 1 tablet Once a day in PM Plavix [facility] 03040038184 75 MG Orally Active 1 tablet Once a day Zyrtec Allergy [facility] 46441082310 10 MG Orally Active 1 tablet Once a day Clonidine HCl [facility] [address]-18 0.1 MG Orally Active 1 tablet Twice a day Glyburide-Metfo [facility] 85933110370 5-500 MG Active 2 tablet rmin Orally twice a with a meal day Wellbutrin SR [facility] 19527469114 150 MG Active TAKE 1 TABLET BY MOUTH EVERY DAY BEFORE A MEAL Glucovance [facility] 43738474616 5-500 MG Active 2 tablet Orally twice a with a meal day BuPROPion HCl [facility] 64038529310 150 MG Active TAKE 1 ER (SR) TABLET ONCE A DAY -81 [facility] 12175955831 81 MG Orally Active 1 tablet Once a day Lantus SoloStar [facility] 60172293762 100 UNIT/ML Active 50 units Subcutaneous daily as directed Trulicity [facility] 97674178889 1.5 MG/0.5ML Active INJECT 1.5 MG ONCE A WEEK UNDER THE SKIN Clopidogrel [facility] 70140425721 75 MG Active TAKE 1 Bisulfate TABLET DAILY Glyburide-Metfo [facility] 36538980616 5-500 MG Active 1 tablet rmin Orally twice a with a meal day Cozaar [facility] 98785514765 100 MG Orally Active 1 tablet Once a day in AM Trulicity [facility] 24084933909 1.5 MG/0.5ML Active 1.5 mg Subcutaneous once a week Crestor [facility] 78828762386 10 MG Orally Active 1 tablet Once a day Results No Known Results Summary Purpose eClinicalWorks Submission
--- OUTSIDE RECORDS SUMMARY | 2019-05-03 11:28 | XMS REPORT ---
:1955 Author Organization eClinicalWorks Care Team Providers Name Role Phone Mccracken, Na Provider Role Unavailable Allergies No Known Allergies Problems Problem Type Condition Code Onset Dates Condition Status Problem Unspecified atherosclerosis of I70.209 Active [place] arteries of extremities, unspecified extremity Problem Memory [...] CAD (coronary artery disease) I25.10 Active Assessment Hyperlipidemia E78.5 Active Problem Diabetes E11.9 Active Problem Hyperlipidemia E78.5 Active Problem HTN (hypertension) I10 Active Problem Stented coronary artery Z95.5 Active Problem Obesity E66.9 Active Problem Depression with anxiety F41.8 Active Medications Medication Code System Code Instructions Start Date End Date Status Dosage [place] [facility] 92273437643 10 MG Orally Once Active 1 tablet a day Results No Known Results Summary Purpose eClinicalWorks Submission
--- OUTSIDE RECORDS SUMMARY | 2019-05-03 11:28 | XMS REPORT ---
:1955 Author Organization eClinicalWorks Care Team Providers Name Role Phone Mccracken, Na Provider Role Unavailable Allergies No Known Allergies Problems Problem Type Condition Code Onset Dates Condition Status Problem Unspecified atherosclerosis of I70.209 Active [place] arteries of extremities, unspecified extremity Problem Memory [...]
--- OUTSIDE RECORDS SUMMARY | 2019-05-03 11:28 | XMS REPORT ---
:1955 Author Organization eClinicalWorks Care Team Providers Name Role Phone Mccracken, Na Provider Role Unavailable Allergies No Known Allergies Problems Problem Type Condition Code Onset Dates Condition Status Problem Unspecified atherosclerosis of I70.209 Active [place] arteries of extremities, unspecified extremity Problem Memory [...]
--- OUTSIDE RECORDS SUMMARY | 2019-05-03 11:28 | XMS REPORT ---
:1955 Author Organization eClinicalWorks Care Team Providers Name Role Phone Mccracken, Na Provider Role Unavailable Allergies No Known Allergies Problems Problem Type Condition Code Onset Dates Condition Status Problem Unspecified atherosclerosis of I70.209 Active [place] arteries of extremities, unspecified extremity Problem Memory [...]
--- OUTSIDE RECORDS SUMMARY | 2019-05-03 11:28 | XMS REPORT ---
:1955 Author Organization [employer] Care Team Providers Name Role Phone Mccracken, Na Provider Role Unavailable Allergies, Adverse Reactions, Alerts Substance Reaction Event Type Lyrica Info Not Available Drug Allergy Cipro Info Not Available Drug Allergy Problems Problem Type Condition Code Onset Dates Condition Status Problem Unspecified atherosclerosis of I70.209 Active [place] arteries of extremities, unspecified extremity Problem Memory [...] Start End Status Dosage System Date Date BuPROPion HCl [facility] 90004376758 150 MG Active TAKE 1 ER (SR) TABLET ONCE A DAY Rosuvastatin [facility] 74660973636 10MG Active TAKE 1 Calcium TABLET DAILY AT BEDTIME Glyburide-Metfo [facility] 55117856101 5-500 MG Orally Active 2 tablet rmin twice a day with a meal Clopidogrel ND 05159313474 75 MG Active TAKE 1 Bisulfate TABLET DAILY Zyrtec Allergy [facility] 85868189169 10 MG Orally Active 1 tablet Once a day Crestor [facility] 27262706675 10 MG Orally Active 1 tablet Once a day Humalog KwikPen [facility] 81181390755 100 UNIT/ML Active 17 units TID Subcutaneous before meals Cozaar [facility] 37324524506 100 MG Orally Active 1 tablet Once a day in AM Wellbutrin SR [facility] 73269486563 150 MG Active TAKE 1 TABLET BY MOUTH EVERY DAY BEFORE A MEAL Bystolic [facility] 20489062318 20 MG Orally Active 1 tablet Once a day in PM Clonidine HCl [facility] 83587422811 0.1 MG Orally Active 1 tablet Twice a day Plavix [facility] 59534409545 75 MG Orally Active 1 tablet Once a day Cilostazol [facility] 62683747205 100 MG Orally Active 1 tablet 30 once a day minutes before or 2 hours after breakfast and dinner Lantus SoloStar [facility] 49675601966 100 UNIT/ML Active 50 units Subcutaneous daily as directed Aspir-81 [facility] 01787472090 81 MG Orally Active 1 tablet Once a day Amlodipine [facility] 26084587360 5 MG Orally Active 1 tablet Besylate Once a day Glucovance [facility] 10986402463 5-500 MG Orally Active 2 tablet twice a day with a meal Glyburide-Metfo [facility] 13002988266 5-500 MG Orally Active 1 tablet rmin twice a day with a meal Trulicity [facility] 38831397471 1.5 MG/0.5ML Active INJECT 1.5 MG ONCE A WEEK UNDER THE SKIN BusPIRone HCl [facility] 37386263777 10 MG Orally Active 1 tablet Twice a day Wellbutrin SR [facility] 70905609911 150 MG Orally Active 1 tablet twice daily [facility] 901[facility]25 1.5 MG/0.5ML Active 1.5 mg Subcutaneous once a week Results No Known Results Summary Purpose eClinicalWorks Submission
--- OUTSIDE RECORDS SUMMARY | 2019-05-03 11:28 | XMS REPORT ---
:1955 Author Organization [employer] Care Team Providers Name Role Phone Mccracken, Na Provider Role Unavailable Allergies No Known Allergies Problems Problem Type Condition Code Onset Dates Condition Status Problem Unspecified atherosclerosis of I70.209 Active [place] arteries of extremities, unspecified extremity Problem Memory [...]
--- OUTSIDE RECORDS SUMMARY | 2019-05-03 11:28 | XMS REPORT ---
:1955 Author Organization [employer] Care Team Providers Name Role Phone Mccracken, Na Provider Role Unavailable Allergies, Adverse Reactions, Alerts Substance Reaction Event Type Lyrica Info Not Available Drug Allergy Cipro Info Not Available Drug Allergy Problems Problem Type Condition Code Onset Dates Condition Status Assessment Stented coronary artery Z95.5 Active Assessment CAD (coronary artery disease) I25.10 Active Assessment Multiple joint pain M25.50 Active Assessment Tremor R25.1 Active Assessment Unspecified atherosclerosis of I70.209 Active [place] arteries of extremities, unspecified extremity Assessment Intermittent claudication I73.9 Active Problem Stented coronary artery Z95.5 Active Assessment Strain of lumbar region, initial S39.012A Active encounter Problem Depression with anxiety F41.8 Active Assessment Acute left-sided low back pain M54.5 Active without sciatica Problem Unspecified atherosclerosis of I70.209 Active [place] arteries of extremities, unspecified extremity Problem Memory changes R41.3 Active Problem Type 2 diabetes mellitus with E11.51 Active diabetic peripheral angiopathy without gangrene Problem Tremor R25.1 Active Problem Pain in right hip M25.551 Active Assessment Type 2 diabetes mellitus with E11.51 Active diabetic peripheral angiopathy without gangrene Assessment Hyperlipidemia E78.5 Active Problem Multiple joint pain M25.50 Active Assessment Peripheral vascular disease I73.9 Active Problem Intermittent claudication I73.9 Active Problem [...] End Status Dosage System Date Date Glyburide-Metfo [facility] 93760279779 5-500 MG Orally Active 2 tablet rmin twice a day with a meal Cozaar [facility] 82054570469 100 MG Orally Active 1 tablet Once a day in AM Rosuvastatin [facility] 38129205911 10MG Active TAKE 1 Calcium TABLET DAILY AT BEDTIME Wellbutrin SR [facility] 92015374405 150 MG Active TAKE 1 TABLET BY MOUTH EVERY DAY BEFORE A MEAL Plavix [facility] 01326331628 75 MG Orally Active 1 tablet Once a day Plavix [facility] 16688983174 75 MG Active TAKE 1 TABLET BY MOUTH DAILY Zyrtec Allergy [facility] 28982733939 10 MG Orally Active 1 tablet Once a day Bystolic [facility] 29206347124 20 MG Orally Active 1 tablet Once a day in PM Glucovance [facility] 47486573853 5-500 MG Orally Active 2 tablet twice a day with a meal Lantus SoloStar [facility] 62749454735 100 UNIT/ML Active 50 units Subcutaneous daily as directed BusPIRone HCl [facility] 73664286019 10 MG Orally Active 1 tablet Twice a day Aspir-81 [facility] 27021541659 81 MG Orally Active 1 tablet Once a day Crestor [facility] 33369590179 10 MG Orally Active 1 tablet Once a day Bystolic [facility] 99644629089 20 MG Active TAKE 1 TABLET BY MOUTH DAILY Clopidogrel [facility] 49276849822 75 MG Active TAKE 1 Bisulfate TABLET DAILY Amlodipine [facility] 11326100232 5 MG Orally Active 1 tablet Besylate Once a day Cilostazol [facility] 83623437401 100 MG Orally Active 1 tablet 30 once a day minutes before or 2 hours after breakfast and dinner BuPROPion HCl [facility] 30206112532 150 MG Active TAKE 1 ER (SR) TABLET ONCE A DAY Trulicity [facility] 84766550012 1.5 MG/0.5ML Active INJECT 1.5 MG ONCE A WEEK UNDER THE SKIN Humalog KwikPen [facility] 79974244298 100 UNIT/ML Active 17 units TID Subcutaneous before meals Trulicity [facility] 11475349100 1.5 MG/0.5ML Active 1.5 mg Subcutaneous once a week Wellbutrin SR [facility] 24228543893 150 MG Orally Active 1 tablet twice daily Glyburide-Metfo [facility] 88120002734 5-500 MG Orally Active 1 tablet rmin twice a day with a meal Tizanidine HCl [facility] 71565918123 2 MG February 06February Active 1 tab every 2019 10, 12 hours prn 2019 pain muscle spasm Clonidine HCl [facility] 56825563827 0.1 MG Orally Active 1 tablet Twice a day Results No Known Results Summary Purpose eClinicalWorks Submission
[2019-05-03 12:25] LABS: Absolute Lymphocytes (CBC) 1.9 K/uL (0.7-4.9); Basophils % 1.4 % (0-1.3); Hematocrit 39.4 % (39.6-49.0); Lymphocytes % 28.1 % (15.3-44.8); MPV 9.6 fL (7.6-11.3); RBC Red Blood Cell Count 4.36 M/uL (4.33-5.43)
[2019-05-03 12:26] LABS: Protime INR 1.05
--- NOTE | 2019-05-03 12:46 | RAD REPORT ---
EXAM DESCRIPTION: RAD - Chest Single View - 05/03/2019 12:39 pm CLINICAL HISTORY: Shortness of breath, lower extremity swelling COMPARISON: July 2018 TECHNIQUE: AP portable chest image was obtained 1216 hours . FINDINGS: Lung volumes are low compared to prior study. No peripheral mass or consolidation. Cardiom egaly is present matching the comparison. No acute vascular engorgement. No significant degree failur e or volume overload seen. Sternotomy wires are in place. No measurable pleural effusion and no pneum othorax. No acute bony abnormality seen. No acute aortic findings suspected. IMPRESSION: Cardiomegaly is present similar to comparison. No focal infiltrative process seen and no significant degree of failure or volume overload.
[2019-05-03 13:01] LABS: ALT/SGPT 26 U/L (12-78); AST/SGOT 15 U/L (15-37); Albumin 3.9 g/dL (3.4-5.0); Alkaline Phosphatase 34 U/L (45-117); BUN Blood Urea Nitrogen 18 mg/dL (7-18); Bicarbonate 25 mmol/L (21-32); Bilirubin Direct 0.1 mg/dL (0-0.2); Bilirubin Total 0.3 mg/dL (0.2-1.0); Glucose Level 170 mg/dL (74-106); Magnesium 1.6 mg/dL (1.8-2.4); NT PRO-BNP 269 pg/mL (<125); Potassium 4.3 mmol/L (3.5-5.1); Protein, Total 6.9 g/dL (6.4-8.2); Sodium Level 140 mmol/L (136-145); Troponin (Emerg Dept Use Only) < 0.02 ng/mL (0.0-0.045)
--- NOTE | 2019-05-03 13:22 | RAD REPORT ---
EXAM DESCRIPTION: US - Extrem Venous W Compress Silviano - 05/03/2019 1:16 pm CLINICAL HISTORY: SWELLING Bilateral leg edema and swelling. COMPARISON: No comparisons TECHNIQUE: Real-time sonographic interrogation of the left and right lower extremity deep venous sys tems was performed. FINDINGS: Normal compressibility, flow augmentation, phasic flow and spontaneous flow is identified in both the left and right lower extremity deep venous systems. IMPRESSION: No sonographic evidence of left or right lower extremity deep venous thrombosis.
[2019-05-03] MEDS ORDERED: MAGNESIUM SULFATE 1 gm IVPB 1 GM/100 ML BAG IV ONE (14:10)
--- NOTE | 2019-05-03 14:33 | ER ---
Nurse's Notes [facility] Name: Alexander Walker Age: 63 yrs Sex: Male : 1955 Arrival Date: 05/03/2019 Time: 11:27 Bed 5 Private MD: Sophia Mccracken Diagnosis: Peripheral Edema Presentation: 05/03 11:53 Presenting complaint: Patient states: tesha feet swelling for a few weeks now, denies iw pain, denies chest pain or SOB. Transition of care: patient was not received from another setting of care. Onset of symptoms was March 2019. Risk Assessment: Do you want to hurt yourself or someone else? Patient reports no desire to harm self or others. Initial Sepsis Screen: Does the patient meet any 2 criteria? No. Patient's initial sepsis screen is negative. Does the patient have a suspected source of infection? No. Patient's initial sepsis screen is negative. Care prior to arrival: None. 11:53 Method Of Arrival: Ambulatory iw 11:53 Acuity: RENY 3 iw 12:08 Note pt also states he is still having some discharge after being diagnosed with UTI 6 iw weeks ago. Historical: - Allergies: 11:55 Ciprofloxacin; iw 11:55 Latex, Natural Rubber; iw - Home Meds: 14:28 aspirin 81 mg Oral TbEC 1 tab once daily [Active]; glyburide-metformin 5-500 mg oral iw tab 2 tabs 2 times per day [Active]; Trulicity 1.5 mg/0.5 mL subcutaneous pnij 0.5 mL once wkly [Active]; Lantus 100 unit/mL Sub-Q soln 40 units bedtime [Active]; Humalog 100 unit/mL Sub-Q soln 15 units before meals [Active]; amlodipine 5 mg tab 1 tab once daily [Active]; Cozaar 100 mg Oral tab 1 tab once daily [Active]; Bystolic 20 mg oral tab once daily [Active]; clopidogrel 75 mg Oral tab 1 tab once daily [Active]; rosuvastatin 10 mg Oral tab 1 tab once daily [Active]; pantoprazole 40 mg oral TbEC 1 tab 2 times per day [Active]; Zyrtec 10 mg Oral tab 1 tab once daily [Active]; - PMHx: 11:55 Anxiety; Diabetes - IDDM; Hyperlipidemia; Hypertension; iw - PSHx: 11:55 Heart stents; triple bypass; Thyroidectomy; iw 14:28 Tonsillectomy; iw - Immunization history:: Adult Immunizations up to date. - Social history:: Smoking status: Patient/guardian denies using tobacco. - Ebola Screening: : Patient negative for fever greater than or equal to 101.5 degrees Fahrenheit, and additional compatible Ebola Virus Disease symptoms Patient denies exposure to infectious person Patient denies travel to an Ebola-affected area in the 21 days before illness onset No symptoms or risks identified at this time. Screenin:58 Abuse screen: Denies threats or abuse. Denies injuries from another. Nutritional sg screening: No deficits noted. Tuberculosis screening: No symptoms or risk factors identified. Never had TB. Fall Risk None identified. Assessment: 12:16 Reassessment: Patient appears in no apparent distress at this time. Patient and/or sg family updated on plan of care and expected duration. Pain level reassessed. Patient is alert, oriented x 3, equal unlabored respirations, skin warm/dry/pink. 14:27 Reassessment: Patient appears in no apparent distress at this time. Patient and/or sg family updated on plan of care and expected duration. Pain level reassessed. Patient is alert, oriented x 3, equal unlabored respirations, skin warm/dry/pink. pt ambulatory to the ER restroom, even steady gait, pt IV magnesium infusing at this time, pt family remains at bedside at this time, will continue to monitor. Vital Signs: 11:55 BP 159 / 68; Pulse 60; Resp 16; Temp 98.2; Pulse Ox 98% on R/A; Weight 115.67 kg; iw Height 5 ft. 11 in. (180.34 cm); Pain 0/10; 12:28 BP 154 / 86; Pulse 64; Resp 16; Pulse Ox 95% ; sv 14:30 BP 170 / 75; Pulse 63; Resp 18; Pulse Ox 97% ; sv 11:55 Body Mass Index 35.56 (115.67 kg, 180.34 cm) ED Course: 11:27 Patient arrived in ED. am2 11:27 Sophia Mccracken MD is Private Physician. am2 11:29 Perico Stuart MD is Attending Physician. kdr 11:41 Tho Barajas RN is Primary Nurse. sg 11:53 Patient has correct armband on for positive identification. Bed in low position. Call sg light in reach. Side rails up X2. Pulse ox on. NIBP on. Warm blanket given. Head of bed elevated. 11:55 Triage completed. iw 11:55 Arm band placed on. iw 12:15 No provider procedures requiring assistance completed. Initial lab(s) drawn, by me, sg sent to lab. Inserted saline lock: 20 gauge in right antecubital area, using aseptic technique. Blood collected. 12:38 EKG done, by avionics systems technician. reviewed by Perico Stuart MD. at1 12:41 Patient taken to ultrasound. via wheelchair. sv 14:29 Sophia Mccracken MD is Referral Physician. kdr 16:17 IV discontinued, intact, bleeding controlled, No redness/swelling at site. Pressure sg dressing applied. Administered Medications: 14:22 Drug: Magnesium Sulfate 1 grams Route: IVPB; Infused Over: 1 hrs; Site: right sg antecubital; 15:25 Follow up: Response: No adverse reaction; IV Status: Completed infusion sg Outcome: 14:31 Discharge ordered by . kdr 16:17 Patient left the ED. iw 16:30 Discharged to home ambulatory, with family. sg 16:30 Condition: good 16:30 Condition: good 16:30 Discharge instructions given to patient, Instructed on discharge instructions, follow up and referral plans. medication usage, safety practices, Demonstrated understanding of instructions, follow-up care, medications. 16:30 Prescriptions given X 2. sg 16:35 Patient left the ED. iw Signatures: Miryam Thakkar RN RN Tho Barajas RN PK Perico Stuart MD MD kdr Jenise Goodman RN RN Emely Denise, collet driller EKG Tat1 Emely Ross am2
--- NOTE | 2019-05-03 14:34 | EDPHYS ---
Physician Documentation [facility] Name: Alexander Walker Age: 63 yrs Sex: Male : 1955 Arrival Date: 05/03/2019 Time: 11:27 Bed 5 Private MD: Sophia Mccracken ED Physician Perico Stuart HPI: 05/03 13:51 This 63 yrs old Male presents to ER via Ambulatory with complaints of Leg kdr Swelling. 13:51 The patient presents with swelling. The complaints affect the left lateral ankle, kdr lateral aspect of left foot, left medial ankle, anterior aspect of left ankle and dorsum of left foot, right ankle, lateral aspect of right foot, medial aspect of right foot, anterior aspect of right ankle and dorsum of right foot. Context: The problem was sustained at home, resulted from an unknown cause, the patient can fully bear weight, the patient is able to ambulate, Problem is a result from a previous injury: No. Onset: The symptoms/episode began/occurred 2 week(s) ago. Modifying factors: The symptoms are alleviated by nothing. elevating leg, the symptoms are aggravated by weight bearing. 14:23 Associated signs and symptoms: The patient has no apparent associated signs or kdr symptoms. Treatment prior to arrival includes: no previous treatment. Severity of symptoms: At their worst the symptoms were mild, moderate, just prior to arrival, in the emergency department the symptoms are unchanged. The patient has not experienced similar symptoms in the past. The patient has not recently seen a physician. The patient states that for the past several weeks he has had increased swelling in his lower extremities, primarily his feet and ankles. He feels that the swelling began in his right leg and now it is also in his left leg. He has not had this problem before. He also c/o very mild paresthesia to the medical aspect fo the right distal calf. HE has no other focal c/o and especially denies chest pain or shortness of breath.. Historical: - Allergies: 11:55 Ciprofloxacin; iw 11:55 Latex, Natural Rubber; iw - Home Meds: 14:28 aspirin 81 mg Oral TbEC 1 tab once daily [Active]; glyburide-metformin 5-500 mg oral iw tab 2 tabs 2 times per day [Active]; Trulicity 1.5 mg/0.5 mL subcutaneous pnij 0.5 mL once wkly [Active]; Lantus 100 unit/mL Sub-Q soln 40 units bedtime [Active]; Humalog 100 unit/mL Sub-Q soln 15 units before meals [Active]; amlodipine 5 mg tab 1 tab once daily [Active]; Cozaar 100 mg Oral tab 1 tab once daily [Active]; Bystolic 20 mg oral tab once daily [Active]; clopidogrel 75 mg Oral tab 1 tab once daily [Active]; rosuvastatin 10 mg Oral tab 1 tab once daily [Active]; pantoprazole 40 mg oral TbEC 1 tab 2 times per day [Active]; Zyrtec 10 mg Oral tab 1 tab once daily [Active]; - PMHx: 11:55 Anxiety; Diabetes - IDDM; Hyperlipidemia; Hypertension; iw - PSHx: 11:55 Heart stents; triple bypass; Thyroidectomy; iw 14:28 Tonsillectomy; iw - Immunization history:: Adult Immunizations up to date. - Social history:: Smoking status: Patient/guardian denies using tobacco. - Ebola Screening: : Patient negative for fever greater than or equal to 101.5 degrees Fahrenheit, and additional compatible Ebola Virus Disease symptoms Patient denies exposure to infectious person Patient denies travel to an Ebola-affected area in the 21 days before illness onset No symptoms or risks identified at this time. ROS: 14:23 Constitutional: Negative for fever, chills, and weight loss, Eyes: Negative for injury, kdr pain, redness, and discharge, Neck: Negative for injury, pain, and swelling, Cardiovascular: Negative for chest pain, palpitations, and edema, Respiratory: Negative for shortness of breath, cough, wheezing, and pleuritic chest pain, Abdomen/GI: Negative for abdominal pain, nausea, vomiting, diarrhea, and constipation, Back: Negative for injury and pain, : Negative for injury, bleeding, discharge, and swelling, Skin: Negative for injury, rash, and discoloration, Neuro: Negative for headache, weakness, numbness, tingling, and seizure activity. Psych: Negative for depression, anxiety, suicide ideation, homicidal ideation, and hallucinations, Allergy/Immunology: Negative for hives, rash, and allergies, Endocrine: Negative for neck swelling, polydipsia, polyuria, polyphagia, and marked weight changes, Hematologic/Lymphatic: Negative for swollen nodes, abnormal bleeding, and unusual bruising. 14:23 MS/extremity: Positive for paresthesias, swelling, of the right leg and left leg. Exam: 14:23 Constitutional: This is a well developed, well nourished patient who is awake, alert, kdr and in no acute distress. Head/Face: Normocephalic, atraumatic. Eyes: Pupils equal round and reactive to light, extra-ocular motions intact. Lids and lashes normal. Conjunctiva and sclera are non-icteric and not injected. Cornea within normal limits. Periorbital areas with no swelling, redness, or edema. Neck: Trachea midline, no thyromegaly or masses palpated, and no cervical lymphadenopathy. Supple, full range of motion without nuchal rigidity, or vertebral point tenderness. No Meningismus. Chest/axilla: Normal chest wall appearance and motion. Nontender with no deformity. No lesions are appreciated. Cardiovascular: Regular rate and rhythm with a normal S1 and S2. No gallops, murmurs, or rubs. Normal PMI, no JVD. No pulse deficits. Respiratory: Lungs have equal breath sounds bilaterally, clear to auscultation and percussion. No rales, rhonchi or wheezes noted. No increased work of breathing, no retractions or nasal flaring. Abdomen/GI: Soft, non-tender, with normal bowel sounds. No distension or tympany. No guarding or rebound. No evidence of tenderness throughout. Back: No spinal tenderness. No costovertebral tenderness. Full range of motion. Skin: Warm, dry with normal turgor. Normal color with no rashes, no lesions, and no evidence of cellulitis. Neuro: Awake and alert, GCS 15, oriented to person, place, time, and situation. Cranial nerves II-XII grossly intact. Motor strength 5/5 in all extremities. Sensory grossly intact. Cerebellar exam normal. Normal gait. Psych: Awake, alert, with orientation to person, place and time. Behavior, mood, and affect are within normal limits. 14:23 Musculoskeletal/extremity: Extremities: noted in the right foot and left foot: The patient had 4+ pitting edema to both feet and ankles. Vital Signs: 11:55 BP 159 / 68; Pulse 60; Resp 16; Temp 98.2; Pulse Ox 98% on R/A; Weight 115.67 kg; iw Height 5 ft. 11 in. (180.34 cm); Pain 0/10; 12:28 BP 154 / 86; Pulse 64; Resp 16; Pulse Ox 95% ; sv 14:30 BP 170 / 75; Pulse 63; Resp 18; Pulse Ox 97% ; sv 11:55 Body Mass Index 35.56 (115.67 kg, 180.34 cm) iw MDM: 14:23 Data reviewed: vital signs, nurses notes, lab test result(s), radiologic studies. kdr Counseling: I had a detailed discussion with the patient and/or guardian regarding: the historical points, exam findings, and any diagnostic results supporting the discharge/admit diagnosis, lab results, radiology results, the need for outpatient follow up. 14:31 Patient medically screened. [facility] 05/03 11:59 Order name: Basic Metabolic Panel [facility] 05/03 11:59 Order name: CBC with Diff [facility] 05/03 11:59 Order name: LFT's [facility] 05/03 11:59 Order name: Magnesium [facility] 05/03 11:59 Order name: NT PRO-BNP [facility] 05/03 11:59 Order name: PT-INR [facility] 05/03 11:59 Order name: Troponin (emerg Dept Use Only) [facility] 05/03 12:39 Order name: CBC with Automated Diff; Complete Time: 14:01 [facility] 05/03 12:39 Order name: Protime (+INR); Complete Time: 14:01 [facility] 05/03 13:16 Order name: Basic Metabolic Panel; Complete Time: 14:01 [facility] 05/03 13:16 Order name: Liver (Hepatic) Function; Complete Time: 14:01 [facility] 05/03 13:16 Order name: Troponin (Emerg Dept Use Only); Complete Time: 14:01 [facility] 05/03 13:16 Order name: NT PRO-BNP; Complete Time: 14:01 [facility] 05/03 13:16 Order name: Magnesium; Complete Time: 14:01 [facility] 05/03 11:59 Order name: XRAY Chest (1 view) [facility] 05/03 11:59 Order name: EKG; Complete Time: 12:02 [facility] 05/03 11:59 Order name: Cardiac monitoring; Complete Time: 12:15 [facility] 05/03 11:59 Order name: EKG - Nurse/Tech; Complete Time: 12:15 [facility] 05/03 11:59 Order name: IV Saline Lock; Complete Time: 12:15 kdr 05/03 11:59 Order name: Labs collected and sent; Complete Time: 12:15 [facility] 05/03 11:59 Order name: O2 Per Protocol; Complete Time: 12:15 kdr 05/03 11:59 Order name: O2 Sat Monitoring; Complete Time: 12:15 kdr 05/03 11:59 Order name: US Extremity Venous W Compression Silviano kdr 05/03 14:06 Order name: Diet Ada 1800 Dom; Complete Time: 14:07 05/03 14:43 Order name: Urine Dipstick--Ancillary (enter results) bd 05/03 15:11 Order name: Urine Dipstick-Ancillary [facility] 05/03 16:12 Order name: RAD [facility] 05/03 16:16 Order name: US [facility] 05/03 16:18 Order name: Urine Culture 05/03 11:59 Order name: Urine Dipstick-Ancillary (obtain specimen); Complete Time: 14:22 kdr Administered Medications: 14:22 Drug: Magnesium Sulfate 1 grams Route: IVPB; Infused Over: 1 hrs; Site: right sg antecubital; 15:25 Follow up: Response: No adverse reaction; IV Status: Completed infusion sg Disposition: 05/03/19 14:31 Discharged to Home. Impression: Peripheral Edema. - Condition is Stable. - Discharge Instructions: Peripheral Edema. - Prescriptions for Lasix 20 mg Oral Tablet - take 1 tablet by ORAL route once daily; 20 tablet. Bactrim DS 800- 160 mg Oral Tablet - take 1 tablet by ORAL route every 12 hours for 10 days; 20 tablet. - Medication Reconciliation Form, Thank You Letter form. - Follow up: Sophia Mccracken MD; When: 2 - 3 days; Reason: If symptoms return, Further diagnostic work-up, Recheck today's complaints, Continuance of care, Re-evaluation by your physician. - Problem is new. - Symptoms have improved. Signatures: Dispatcher [employer] EDTho Gallardo, RN RN sg Perico Stuart MD MD kdr Jenise Goodman RN RN iw Corrections: (The following items were deleted from the chart) 16:17 14:31 05/03/2019 14:31 Discharged to Home. Impression: Peripheral Edema. Condition is iw Stable. Forms are Medication Reconciliation Form, Thank You Letter, Antibiotic Education, Prescription Opioid Use. Follow up: Sophia Mccracken; When: 2 - 3 days; Reason: If symptoms return, Further diagnostic work-up, Recheck today's complaints, Continuance of care, Re-evaluation by your physician. Problem is new. Symptoms have improved. kdr 16:35 16:17 05/03/2019 14:31 Discharged to Home. Impression: Peripheral Edema. Condition is iw Stable. Discharge Instructions: Peripheral Edema. Prescriptions for Lasix 20 mg Oral Tablet - take 1 tablet by ORAL route once daily; 20 tablet, Bactrim DS 800-160 mg Oral Tablet - take 1 tablet by ORAL route every 12 hours for 10 days; 20 tablet. and Forms are Medication Reconciliation Form, Thank You Letter. Follow up: Sophia Mccracken; When: 2 - 3 days; Reason: If symptoms return, Further diagnostic work-up, Recheck today's complaints, Continuance of care, Re-evaluation by your physician. Problem is new. Symptoms have improved. iw
[2019-05-03 15:09] LABS: Urine Blood TRACE (NEG); Urine Glucose NEGATIVE (NEG); Urine Protein NEGATIVE (NEG); Urine Specific Gravity 1.015 (1.005-1.030)
[2019-05-03 17:24] VITALS: TEMP 98.2
[2019-05-03 17:27] VITALS: BP 170/75; O2SAT 97
--- NOTE | 2019-05-04 10:34 | EKG ---
Test Date: 2019-05-03 Test Time: 12:09:54 Security Intelligence Analyst: OBEY MEASUREMENT RESULTS: Intervals: Rate: 63 MN: 182 QRSD: 162 QT: 454 QTc: 464 [place]: P: 62 MN: 182 QRS: -73 T: 29 INTERPRETIVE STATEMENTS: Normal sinus rhythm Left axis deviation Right bundle branch block Septal infarct, age undetermined Abnormal ECG Compared to ECG 08/13/2018 08:29:15 Sinus bradycardia no longer present T-wave abnormality no longer present Possible ischemia no longer present Myocardial infarct finding still present Electronically Signed On 05-04-19 10:31:46 CDT by Dion Wagner
== END 2019-05-03 16:35 | disposition home or self-care (01) ==
LOC: ER 11:23
DX: R60.9 Edema, unspecified (principal); E11.9 Type 2 diabetes mellitus without complications; E78.5 Hyperlipidemia, unspecified; I10 Essential (primary) hypertension; Z88.1 Allergy status to other antibiotic agents; Z91.040 Latex allergy status
CPT/HCPCS: 96365; 93005; 85025; 87086; 80048; 36415; 83735; 85610; 80076; 81003; 84484; 83880; 71045; 93970; 99284; J3475; 87088

== ENCOUNTER 2019-11-24 01:36 | Emergency (ER) | payer BC ==
--- OUTSIDE RECORDS SUMMARY | 2019-11-24 01:39 | XMS REPORT ---
:1955 Author Organization [facility] t Address [address] [place] [address] Dr. Harrison [address] [place] [id number] Care Team Providers Name Role Phone Unavailable Unavailable Unavailable Problems This patient has no known problems. Allergies, Adverse Reactions, Alerts This patient has no known allergies or adverse reactions. Medications This patient has no known medications.
--- OUTSIDE RECORDS SUMMARY | 2019-11-24 01:40 | XMS REPORT ---
:1955 Author Organization [employer] Care Team Providers Name Role Phone Mccracken, Na Provider Role Unavailable Allergies No Known Allergies Problems Problem Type Condition Code Onset Dates Condition Statu s Problem Unspecified atherosclerosis of I70.209 Active [place] arteries of extremities, unspecified extremity Problem Memory changes R41.3 Active Problem Type 2 diabetes mellitus with E11.51 Active diabetic peripheral angiopathy without gangrene Problem Tremor R25.1 Active Problem Pain in right hip M25.551 Active Problem Multiple joint pain M25.50 Active Problem Intermittent claudication I73.9 Ac tive Problem Allergic arthritis M13.89 Active Problem Pain in left hip M25.552 Active Problem 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 type 2 diabetes mellitus Problem Peripheral vascular disease I73.9 Active Problem CAD (coronary artery disease) I25.10 Active Assessment Peripheral vascular disease I73.9 Active Problem Diabetes E11.9 Active Problem Hyperlipidemia E78.5 Active Problem HTN (hypertension) I10 Active Problem Stented coronary artery Z95.5 Acti ve Problem Obesity E66.9 Active Problem Depression with anxiety F41.8 Acti ve Medications Medication Code System Code Instructions Start Date End Date Status Dosage Plavix [facility] [id number] 75 MG Orally Once Active 1 tablet a day Results No Known Results Summary Purpose [employer] Submission
--- OUTSIDE RECORDS SUMMARY | 2019-11-24 01:40 | XMS REPORT | Summary of Care ---
:[address] [facility] Address [address] [place] [id number] Care Team Providers Name Role Phone OmarSalvatore Primary Care Provider Reason for Referral MRI/CAT Scan (Routine) Status Reason Specialty Diagnoses / Referred By Referred To Procedures Contact Contact Authorized Diagnostic Diagnoses Peripheral vascular disease, unspecified [place], Radiology Procedures CT ANGIOGRAM ABDOMEN/PELVIS MD [place] [address] [place] [address] DR [address] [place] [phone] MRI/CAT Scan (Routine) Status Reason Specialty Diagnoses / Referred By Referred To Procedures Contact Contact Authorized Diagnostic Diagnoses Peripheral vascular disease, unspecified [place], Radiology Procedures CT ANGIOGRAM ABDOMEN/PELVIS MD [place] [address] [place] [address] DR [address] [place] [phone] Reason for Visit MRI/CAT Scan (Routine) Status Reason Specialty Diagnoses / Referred By Referred To Procedures Contact Contact Authorized Diagnostic Diagnoses Peripheral vascular disease, unspecified [place], Radiology Procedures CT ANGIOGRAM ABDOMEN/PELVIS MD [place] [address] [place] [address] [address], [place] [address] Encounter Details Date Type Department Care Team Description 05/04/2019 Hospital Encounter Formerly [facility] Kartik Huber MD [address] KIMBALL Tomography 101 [address] [facility] [address] [place] [id number] [address] [place] [address] [phone] Allergies Active Allergy Reactions Severity Noted Date Comments Adhesive Rash 07/02/2011 Ciprofloxacin Other - See comments 09/24/2011 "made me crazy" Latex Rash 07/02/2011 documented as of this encounter (statuses as of 05/05/2019) Medications Medication Sig Dispensed Refills Start Date End Date Status nebivolol (BYSTOLIC) 10 Take 10 mg by 0 Active mg tabletIndications: mouth daily. Essential hypertension, benign aspirin 81 mg chewable Take 81 mg by 0 Active tabletIndications: mouth daily. Coronary atherosclerosis cetirizine (ZYRTEC) 10 Take 10 mg by 0 Active mg tablet mouth daily. blood sugar diagnostic 3 (three) times 300 Strip 3 01/13/2012 Active (ASCENSIA MICROFILL) daily. strip buPROPion XL (WELLBUTRIN Take 1 Tab by 90 Tab 1 02/06/2012 Active XL) 150 mg 24 hr tablet mouth daily. losartan (COZAAR) 100 mg Take 1 Tab by 90 Tab 1 02/06/2012 Active tabletIndications: mouth daily. Essential hypertension, benign cholecalciferol, vitamin Take 1,000 Units 0 Active D3, (VITAMIN D3) 1,000 by mouth daily. unit tablet vitamin B-12 (VITAMIN Take 1,000 mcg 0 Active B-12) 1,000 mcg tablet by mouth daily. DOCOSAHEXANOIC ACID/EPA Take 1,200 mg by 0 Active (FISH OIL ORAL) mouth. cilostazol (PLETAL) 100 Take 100 mg by 0 Active mg tablet mouth. glyBURIDE-metformin Take two tablets 180 Tab 3 08/17/2013 Active (GLUCOVANCE) 2.5-500 mg twice a day with tabletIndications: Type meals. II or unspecified type diabetes mellitus without mention of complication, uncontrolled Insulin Glargine (LANTUS inject 45 Units 3 Box 3 4 Active SOLOSTAR) 100 unit/mL (3 under the skin mL) InPnIndications: at bedtime. Type II or unspecified type diabetes mellitus without mention of complication, uncontrolled Insulin [place], 4 (four) times 400 Each 3 02/25/2014 Active Disposable, (BD daily. ULTRAFINE III MINI PEN) 31 x 10/28 " NdleIndications: Type II or unspecified type diabetes mellitus without mention of complication, uncontrolled insulin lispro (HUMALOG 10 units with 3 Box 3 02/25/2014 Active KWIKPEN) 100 unit/mL pen lunch injector clopidogrel (PLAVIX) 75 Take 1 Tab by 90 Tab 3 04/05/2014 Active mg tabletIndications: mouth daily. Coronary atherosclerosis rosuvastatin (CRESTOR) Take 1 Tab by 90 Tab 3 04/05/2014 Active 10 mg tabletIndications: mouth at Other and unspecified bedtime. hyperlipidemia Liraglutide (VICTOZA) inject 1.8 mg 9 Syringe 1 04/05/2014 Active 0.6 mg/0.1 mL (18 mg/3 under the skin mL) PnIj daily. documented as of this encounter (statuses as of 05/05/2019) Active Problems Problem Noted Date Vitamin D deficiency 01/26/2013 Diabetes mellitus type 2, uncontrolled, without compli cations Overview: ICD10 Diagnosis Term Overlocker Utility Essential hypertension, benign PVD (peripheral vascular disease) HLD (hyperlipidemia) Overview: ICD10 Diagnosis Term [employer] Coronary atherosclerosis documented as of this encounter (statuses as of 05/05/2019) Social History Tobacco Use Types Packs/Day Years Used Date Former Smoker Cigarettes Quit: 10/04/19 11 Smokeless Tobacco: Never Used Alcohol Use Drinks/Week oz/Week Comments Yes beer Sex Assigned at Date Recorded Not on file Job Start Date Occupation Industry Not on file Not on file Not on file Travel History Travel Start Travel End No recent travel history available. documented as of this encounter Last Filed Vital Signs Not on filedocumented in this encounter Plan of Treatment Health Maintenance Due Date Last Done Comments HEPATITIS C (HCV) SCREEN 1955 PNEUMOCOCCAL 0-64 YEARS COMBINED 11/15/1963 SERIES (1 of 1 - PPSV23) EYE EXAM 11/15/1967 DTaP,Tdap,and Td Vaccines (1 - 1976 Tdap) COLONOSCOPY 11/15/2007 Zoster Recombinant Vaccine 11/15/2007 (SHINGRIX) (1 of 2) CREATININE (SERUM) 12/16/2012 12/17/2011 LDL-C 08/10/2014 08/10/2013, 12/17/2011 URINE MICROALBUMIN 08/10/2014 08/10/2013, 09/24/2011 HgA1C 10/06/2014 04/05/2014, 11/16/2013, 08/17/2013, Additional history exists FOOT EXAM 11/16/2014 11/16/2013, 08/17/2013 INFLUENZA VACCINE (#1) 2019 documented as of this encounter Procedures Procedure Name Priority Date/Time Associated Diagnosis Comme nts CT ANGIOGRAM Routine 05/04/2019 12:40 Peripheral vascular Resu lts for this ABDOMEN/PELVIS PM CDT disease, unspecified proce dure are in the results section. NOTICE OF PRIVACY Routine 05/04/2019 11:43 PRACTICES AM CDT CONSENT/REFUSAL FOR Routine 05/04/2019 11:42 DIAGNOSIS AND AM CDT TREATMENT ASSIGNMENT OF Routine 05/04/2019 11:42 BENEFITS AM CDT POCT CREATININE Routine 05/04/2019 11:31 Results for this AM CDT procedure are i n the results section. documented in this encounter Results CT ANGIOGRAM ABDOMEN/PELVIS (05/04/2019 12:40 PM CDT) Specimen Impressions Performed At PACS/VR/DOSE 1.No acute findings are seen in the abdomen and pelvis. 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 3.Atherosclerotic disease with near complete occlusion of the right superficial femoral artery. The distal e xtent of this is not in the debfl-hb-ocrr. 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 A 0.5 cm pseudoaneurysm is suspect ed at this site. Narrative Performed At * * * * * * * * ORIGINAL REPORT * * * * * * * * PACS/VR/DOSE EXAM: CT ABDOMEN ANGIOGRAPHY OF THE AND PELVIS WITH AND WITHOUT CONTRAST HISTORY: 63-year-old male with suspected peripheral vascular disease. COMPARISON: None. DOSE: Total exam DLP 1504 mGy-cm TECHNIQUE AND FINDINGS: Contiguous axial imaging was performed after the uncomplicated administration of 120 cc of intravenous Omnipaque contrast. Coronal and sagittal reconstructions wer e obtained. FINDINGS: LOWER THORAX: The lungs bases are clear. No pleural or pericardial effusion. Sternotomy wires. LIVER: No focal hepatic lesions. Patent hepatic and portal veins. No biliary ductal dilatation. GALLBLADDER AND BILIARY TREE: No extrahepatic biliary ductal dilation.No hyperdense stones. SPLEEN: No splenomegaly or focal lesions . PANCREAS: No ductal dilation or focal le sions. ADRENAL GLANDS: No adrenal nodules. KIDNEYS: No hydronephrosis, stones, or s olid lesions. PERITONEUM AND RETROPERITONEUM: No free air or free fluid. LYMPH NODES: No lymphadenopathy is seen. GI TRACT: No dilation or wall thickening . Sigmoid diverticulosis with no evidence of diverticulitis. PELVIS/BLADDER: The urinary bladder and prostate appear normal. VESSELS: The abdominal aorta at the diaphragmatic hiatus measures 2.4 cm (17:22). Scattered atherosclerotic calcifications are seen. The celiac artery is patent. Conventional branching an atomy is seen. 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 A patent JASON is visualized (17:49). A single patent left renal artery is seen. A single renal accessory artery is are seen (17:3 7). The infrarenal abdominal aorta measures 1.7 cm in diam eter (17:45) with no evidence of aneurysm formation or a mura l thrombus. Atherosclerotic calcific lesions are seen involving bila teral common iliac, external and internal iliac arteries. Near complete occlusion of the right sup erficial femoral artery, at the edge of the gamxw-nq-iuap (17:110). He nt right deep femoral artery. There is early opacification of the left femoral and external iliac vein likely due to a arteriovenous fistula best seen on 17: 93 and 13:26. A 0.5 cm pseudoaneurysm is suspected at the site. The visual ized left superficial and deep femoral arteries are patent. BONES AND SOFT TISSUES: No suspicious lytic or sclerot ic bone lesions. An intramuscular lipoma is seen in the right lateral uppe r thigh measuring 3.6 cm (21:183). There is nonspecific subcut aneous fat stranding seen in the left lower quadrant of the abdomen best seen on 21:91. Procedure Note [facility], Radiant Results Inft User - 2018 1:41 PM CDT * * * * * * * * ORIGINAL REPORT * * * * * * * * EXAM: CT ABDOMEN ANGIOGRAPHY OF THE AND PELVIS WITH AND WITHOUT CONTRAST HISTORY: 63-year-old male with suspected peripheral vascular disease. COMPARISON: None. DOSE: Total exam DLP 1504 mGy-cm TECHNIQUE AND FINDINGS: Contiguous axial imaging was performed after the uncomplicated administration of 120 cc o f intravenous Omnipaque contrast. Coronal and sagittal reconstructions wer e obtained. FINDINGS: LOWER THORAX: The lungs bases are clear. No pleural or pericardial effusion. Sternotomy wires. LIVER: No focal hepatic lesions. Patent hepatic and portal veins. No biliary ductal dilatation. GALLBLADDER AND BILIARY TREE: No extrahe patic biliary ductal dilation. No hyperdense stones. SPLEEN: No splenomegaly or focal lesions . PANCREAS: No ductal dilation or focal le sions. ADRENAL GLANDS: No adrenal nodules. KIDNEYS: No hydronephrosis, stones, or s olid lesions. PERITONEUM AND RETROPERITONEUM: No free air or free fluid. LYMPH NODES: No lymphadenopathy is seen. GI TRACT: No dilation or wall thickening . Sigmoid diverticulosis with no evidence of diverticulitis. PELVIS/BLADDER: The urinary bladder and prostate appear normal. VESSELS: The abdominal aorta at the diaphragmatic hiatus measures 2.4 cm (17:22). Scattered atherosclerotic calcifications are seen. The celiac artery is patent. Conventiona l branching anatomy is seen. 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 A patent JASON is visualized (17:49). A single patent left renal artery is seen. A single renal accessory artery is are seen (17:3 7). The infrarenal abdominal aorta measures 1.7 cm in diameter (17:45) with no evidence of aneurysm formation or a mura l thrombus. Atherosclerotic calcific lesions are seen involving bila teral common iliac, external and internal iliac arteries. Near complete occlusion of the right sup erficial femoral artery, at the edge of the ejeux-mj-glfv (17:110). He nt right deep femoral artery. There is early opacification of the left femoral and external iliac vein likely due to a arteriovenous fistula be st seen on 17:93 and 13:26. A 0.5 cm pseudoaneurysm is suspected at the si te. The visualized left superficial and deep femoral arteries are patent. BONES AND SOFT TISSUES: No suspicious ly tic or sclerotic bone lesions. An intramuscular lipoma is seen in the righ t lateral upper thigh measuring 3.6 cm (21:183). There is nonspecific subcut aneous fat stranding seen in the left lower quadrant of the abdomen best seen on 21:91. IMPRESSION 1. No acute findings are seen in the ab domen and pelvis. 2. 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 3. Atherosclerotic disease with near co mplete occlusion of the right superficial femoral artery. The distal e xtent of this is not in the lrodo-jw-llnh. 4. Early opacification of the left femo ral and external iliac vein, likely secondary to an arteriovenous fistula be tween the common femoral artery and vein. A 0.5 cm pseudoaneurysm is suspect ed at this site. Performing Organization Address City/State/Zipcode Phone Number PACS/VR/DOSE POCT CREATININE (05/04/2019 11:31 AM CDT) Pathologist Sig nature POCT Creatinine 1.4 (H) 0.6 - 1.3 mg/dL [facility] Specimen Blood - VENOUS Performing Organization Address City/State/Zipcode Phone Number [facility] CLIA: [id number], [address] [place], [place] [address] documented in this encounter Visit Diagnoses Diagnosis Peripheral vascular disease, unspecified documented in this encounter Administered Medications Medication Order MAR Action Action Date Dose Rate Site iohexol (OMNIPAQUE 350 BULK-150 Given 05/04/2019 12:30 PM CDT 15 0 mL mL) injection 150 mL 150 mL, Intravenous, ONCE, 1 dose, Tue05/04/19 at 1230, Routine documented in this encounter Insurance Payer Benefit Plan Subscriber ID Effective Dates Phone Address Type / Group [facility] [id number] 2017-Sho [phone] [address] PPO/POS [place] [employer] t [id number] [place] [address] documented as of this encounter Advance Directives Type Date Recorded Patient Hand Surgeon Explanati on Advance Directives and Living Will Power of Import And Export Clerk
--- OUTSIDE RECORDS SUMMARY | 2019-11-24 01:41 | XMS REPORT ---
:1955 Author Organization [employer] Care Team Providers Name Role Phone Mccracken, Na Provider Role Unavailable Allergies No Known Allergies Problems Problem Type Condition Code Onset Dates Condition Statu s Assessment Stented coronary artery Z95.5 Acti ve Assessment Lower extremity edema R60.0 Active Assessment CAD (coronary artery disease) I25.10 Active Assessment Multiple joint pain M25.50 Active Assessment Unspecified atherosclerosis of I70.209 Active [place] arteries of extremities, unspecified extremity Assessment PUD (peptic ulcer disease) K27.9 A ctive Assessment Intermittent claudication I73.9 Ac tive Problem Unspecified atherosclerosis of I70.209 Active [place] arteries of extremities, unspecified extremity Assessment Peripheral vascular disease I73.9 Active Problem Type 2 diabetes mellitus with E11.51 Active diabetic peripheral angiopathy without gangrene Assessment Hyperlipidemia E78.5 Active Problem Memory changes R41.3 Active Problem Intermittent claudication I73.9 Ac tive Problem Allergic arthritis M13.89 Active Problem PUD (peptic ulcer disease) K27.9 A ctive Problem Multiple joint pain M25.50 Active Assessment HTN (hypertension) I10 Active Problem Lower extremity edema R60.0 Active Assessment Type 2 diabetes mellitus with E11.51 Active diabetic peripheral angiopathy without gangrene Problem Pain in right hip M25.551 Active Problem 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 type 2 diabetes mellitus Problem Tremor R25.1 Active Problem Pain in left hip M25.552 Active Problem HTN (hypertension) I10 Active Problem Obesity E66.9 Active Problem Peripheral vascular disease I73.9 Active Problem CAD (coronary artery disease) I25.10 Active Problem Stented coronary artery Z95.5 Acti ve Problem Depression with anxiety F41.8 Acti ve Problem Diabetes E11.9 Active Problem Hyperlipidemia E78.5 Active Medications Medication Code Code Instructions Start End Status Dosage System Date Date Hydrochlorothiazide ND 14374403304 25 MG Orally Act mima 1 tablet Once a day in the morning Bystolic ND 15653135991 20 MG Orally Active 1 tabl et Once a day in PM - [facility] 33073365442 81 MG Orally Active 1 tabl et Once a day Zyrtec Allergy [facility] 32427008112 10 MG Orally Active 1 tablet Once a day Dexilant [facility] 19463436599 60 MG Orally Aug 16, Active 1 caps ule Once a day 2019 Glyburide-Metformin [facility] 04904440150 5-500 MG Active 1 tablet Orally twice a with a day meal Plavix [facility] 20714941782 75 MG Orally Active 1 table t Once a day Cozaar [facility] 43398390355 100 MG Orally Active 1 tabl et Once a day in AM Losartan Potassium [facility] 78987882055 100 MG Orally Act mima 1 tablet Once a day Cilostazol [facility] 00194001368 100 MG Orally Active 1 t ablet once a day 30 minutes before or 2 hours after breakfast and dinner Bystolic [facility] 87726032599 20 MG Orally Active 1 tabl et Once a day Lantus SoloStar [facility] 44760022301 100 UNIT/ML Active 35 units Subcutaneous daily as directed Trulicity [facility] 57254930727 1.5 MG/0.5ML Active 1.5 m g Subcutaneous once a week Rosuvastatin Calcium [facility] 39249496141 10MG Orally Act mima 1 tablet Once a day Humalog KwikPen [facility] 11102004745 100 UNIT/ML Active 12 units Subcutaneous tid before meals Results No Known Results Summary Purpose [employer]ClinicalWorks Submission
--- OUTSIDE RECORDS SUMMARY | 2019-11-24 01:41 | XMS REPORT ---
:1955 Author Organization [employer] Care Team Providers Name Role Phone Mccracken, Na Provider Role Unavailable Allergies No Known Allergies Problems Problem Type Condition Code Onset Dates Condition Statu s Problem Memory changes R41.3 Active Problem Intermittent claudication I73.9 Ac tive Problem Allergic arthritis M13.89 Active Problem PUD (peptic ulcer disease) K27.9 A ctive Problem Multiple joint pain M25.50 Active Problem Lower extremity edema R60.0 Active Problem Pain in right hip M25.551 [...] Acti ve Problem Diabetes E11.9 Active Problem Unspecified atherosclerosis of I70.209 Active [place] arteries of extremities, unspecified extremity Problem Hyperlipidemia E78.5 Active Problem Type 2 diabetes mellitus with E11.51 Active diabetic peripheral angiopathy without gangrene Medications Medication Code System Code Instructions Start Date End Date [facility] D[facility] 20 MG Orally Once Active 1 tablet a day Results No Known Results Summary Purpose [employer]ClinicalWorks Submission
[2019-11-24] MEDS ORDERED: KETOROLAC 30 MG/ML INJ ONE (02:14)
[2019-11-24] MEDS ORDERED: METOCLOPRAMIDE 10 MG/2mL INJ ONE (02:14)
[2019-11-24] MEDS ORDERED: NA CHLORIDE 0.9% 1,000 ML ONE (02:14)
[2019-11-24] MEDS ORDERED: DIPHENHYDRAMINE 50 MG/ML VIAL ONE (02:14)
[2019-11-24 02:26] LABS: Absolute Lymphocytes (CBC) 2.3 K/uL (0.7-4.9); Basophils % 1.4 % (0-1.3); Hematocrit 39.3 % (39.6-49.0); Lymphocytes % 26.8 % (15.3-44.8); MPV 9.5 fL (7.6-11.3); RBC Red Blood Cell Count 4.41 M/uL (4.33-5.43)
[2019-11-24 02:42] LABS: Albumin 3.7 g/dL (3.4-5.0); Bilirubin Total 0.4 mg/dL (0.2-1.0); Potassium 3.9 mmol/L (3.5-5.1); Protein, Total 6.9 g/dL (6.4-8.2)
[2019-11-24 03:38] LABS: Urine Blood NEGATIVE (NEG); Urine Glucose NEGATIVE (NEG); Urine Protein NEGATIVE (NEG)
--- NOTE | 2019-11-24 04:18 | ER ---
Nurse's Notes [facility] Name: Alexander Walker Age: 64 yrs Sex: Male : 1955 Arrival Date: 11/24/2019 Time: 01:39 Bed 25 Private MD: Diagnosis: Tension-type headache;Strain of muscle, fascia and tendon at neck level;Headache;Type 1 diabetes mellitus Presentation: 11/23 01:48 Chief complaint: Patient states: I'VE BEEN HAVING PAIN ON THE BACK OF MY HEAD FOR 3-4 rv DAYS NOW. I DON'T FEEL GOOD. DENIES DIZZINESS AND VISUAL PROBLEM. PAIN IS AGGRAVATED BY HEAD MOEVEMENT. Coronavirus screen: Proceed with normal triage. Ebola Screen: No symptoms or risks identified at this time. Initial Sepsis Screen: Does the patient meet any 2 criteria? No. Patient's initial sepsis screen is negative. Does the patient have a suspected source of infection? No. Patient's initial sepsis screen is negative. Risk Assessment: Do you want to hurt yourself or someone else? Patient reports no desire to harm self or others. Onset of symptoms was November 24, 2019 at 00:00. 01:48 Method Of Arrival: Ambulatory rv 01:48 Acuity: RENY 3 rv Triage Assessment: 01:59 Headache History: Denies prior headaches. General: Appears in no apparent distress. rv Behavior is calm, cooperative. Pain: Complains of pain in base of the skull Pain does not radiate. Pain currently is 8 out of 10 on a pain scale. Pain began 2-3 days ago. Aggravated by MOVEMENT Also complains of no other associated symptoms. EENT: No signs and/or symptoms were reported regarding the EENT system. Neuro: Level of Consciousness is awake, alert, obeys commands, Oriented to person, place, time, situation. Cardiovascular: Patient's skin is warm and dry. Respiratory: Airway is patent. Musculoskeletal: Reports pain in base of the skull. Historical: - Allergies: :59 Ciprofloxacin; rv :59 Ciprofloxacin HCl; rv :59 Latex, Natural Rubber; rv - Home Meds: 01:59 glyburide-metformin 5-500 mg oral tab 1 tab 2 times per day [Active]; Trulicity 1.5 rv mg/0.5 mL subcutaneous pnij 0.5 mL once wkly [Active]; Lantus 100 unit/mL Sub-Q soln 35 unit daily [Active]; Humalog 100 unit/mL Sub-Q soln 12 unit three times a day [Active]; hydrochlorothiazide 25 mg Oral tab 1 tab once daily [Active]; losartan 100 mg oral tab 1 tab once daily [Active]; clopidogrel 75 mg oral tab 1 tab once daily [Active]; rosuvastatin 10 mg oral tab 1 tab once daily [Active]; memantine 10 mg oral tab 1 tab daily [Active]; Folbee 2.5-25-1 mg oral tab 1 tab once daily [Active]; - PMHx: 01:59 Anxiety; Diabetes - IDDM; Hyperlipidemia; Hypertension; rv - PSHx: 01:59 CABG; Tonsillectomy; rv - Immunization history:: Adult Immunizations up to date, Flu vaccine is up to date. - Social history:: Smoking status: Patient/guardian denies using tobacco, the patient reports quitting approximately 9 years ago. - Family history:: not pertinent. Screenin:03 Abuse screen: Denies threats or abuse. Denies injuries from another. Nutritional rv screening: No deficits noted. Tuberculosis screening: No symptoms or risk factors identified. Fall Risk None identified. Assessment: 02:03 Reassessment: SEE TRIAGE NOTES. rv 03:00 Reassessment: Patient appears in no apparent distress at this time. Patient and/or rv family updated on plan of care and expected duration. Pain level reassessed. Patient is alert, oriented x 3, equal unlabored respirations, skin warm/dry/pink. PATIENT TAKEN TO CT SCAN VIA STRETCHER. 03:20 Reassessment: PATIENT BACK FROM THE CT SCAN. rv 03:48 Reassessment: PAIN REASSESSED. Patient states feeling better. rv Vital Signs: 01:48 BP 184 / 78; Pulse 64; Resp 16; Temp 97.5; Pulse Ox 99% ; Weight 116.57 kg; Height 5 rv ft. 11 in. (180.34 cm); Pain 8/10; 02:39 BP 153 / 64; Pulse 57; Resp 16; Pulse Ox 98% on R/A; rv 03:30 BP 135 / 70; Pulse 55; Resp 15; Pulse Ox 97% on R/A; rv 04:27 BP 139 / 48; Pulse 56; Resp 15; Temp 97.7; Pulse Ox 98% on R/A; Pain 2/10; rv 01:48 Body Mass Index 35.84 (116.57 kg, 180.34 cm) rv ED Course: 01:39 Patient arrived in ED. cl3 01:41 Santos Hand, RN is Primary Nurse. rv 01:51 Triage completed. rv 01:53 Holden Velez MD is Attending Physician. josi 02:02 Arm band placed on Patient placed in the treatment room, on a stretcher, Patient rv notified of wait time. 02:03 Bed in low position. Call light in reach. Side rails up X 1. Pulse ox on. NIBP on. rv 02:15 Inserted saline lock: 20 gauge in left antecubital area, using aseptic technique. Blood rv collected. 02:15 Initial lab(s) drawn, by me, sent to lab. rv 03:47 CT Head C Spine In Process Unspecified. EDMS 03:47 CT Head Angio In Process Unspecified. EDMS 03:47 CT Neck Angio In Process Unspecified. EDMS 04:16 Hamlet Sherman MD is Referral Physician. josi 04:28 No provider procedures requiring assistance completed. IV discontinued, intact, rv bleeding controlled, No redness/swelling at site. Pressure dressing applied. Administered Medications: 02:25 Drug: Benadryl 50 mg Route: IVP; Site: left antecubital; rv 02:53 Follow up: Response: No adverse reaction rv 02:26 Drug: NS 0.9% 500 ml Route: IV; Rate: bolus; Site: left antecubital; rv 02:38 Follow up: IV Status: Completed infusion; IV Intake: 500ml rv 02:26 Drug: TORadol 30 mg Route: IVP; Site: left antecubital; rv 02:53 Follow up: Response: No adverse reaction rv 02:26 Drug: Reglan 10 mg Route: IVP; Site: left antecubital; rv 02:53 Follow up: Response: No adverse reaction rv 02:39 Drug: NS 0.9% 1000 ml Route: IV; Rate: 125 ml/hr; Site: left antecubital; rv 04:31 Follow up: IV Status: Order to discontinue infusion; IV Intake: 250ml rv Intake: 02:38 IV: 500ml; Total: 500ml. rv 04:31 IV: 250ml; Total: 750ml. rv Outcome: 04:17 Discharge ordered by . josi 04:28 Discharged to home ambulatory, IS COMING TO TAKE THE PATIENT HOME. rv 04:28 Condition: improved 04:28 Discharge instructions given to patient, Instructed on discharge instructions, follow up and referral plans. medication usage, Demonstrated understanding of instructions, follow-up care, medications, Prescriptions given X 3. 04:30 Patient left the ED. rv Signatures: Dispatcher [employer] EDHolden Foy MD MD cha Vicente, Ronaldo, RN RN Tabby Heaton cl3
--- NOTE | 2019-11-24 04:18 | EDPHYS ---
Physician Documentation [facility] Name: Alexander Walker Age: 64 yrs Sex: Male : 1955 Arrival Date: 11/24/2019 Time: 01:39 Bed 25 Private MD: BILL Physician Holden Velez HPI: 11/23 02:06 This 64 yrs old Male presents to ER via Ambulatory with complaints of josi Headache, Stiff Neck. 02:06 The patient complains of pain to the left base of the skull and right base of the josi skull. The patient describes the headache as a pressure. Onset: The symptoms/episode began/occurred 3 day(s) ago. Associated signs and symptoms: The patient has no apparent associated signs or symptoms. Severity of symptoms: At its worst the pain was moderate, in the emergency department the pain is unchanged. Headache History: The patient has had previous headaches and this one is different than previous episodes. The patient has not experienced similar symptoms in the past. Historical: - Allergies: : Ciprofloxacin; rv :59 Ciprofloxacin HCl; rv :59 Latex, Natural Rubber; rv - Home Meds: :59 glyburide-metformin 5-500 mg oral tab 1 tab 2 times per day [Active]; Trulicity 1.5 rv mg/0.5 mL subcutaneous pnij 0.5 mL once wkly [Active]; Lantus 100 unit/mL Sub-Q soln 35 unit daily [Active]; Humalog 100 unit/mL Sub-Q soln 12 unit three times a day [Active]; hydrochlorothiazide 25 mg Oral tab 1 tab once daily [Active]; losartan 100 mg oral tab 1 tab once daily [Active]; clopidogrel 75 mg oral tab 1 tab once daily [Active]; rosuvastatin 10 mg oral tab 1 tab once daily [Active]; memantine 10 mg oral tab 1 tab daily [Active]; Folbee 2.5-25-1 mg oral tab 1 tab once daily [Active]; - PMHx: :59 Anxiety; Diabetes - IDDM; Hyperlipidemia; Hypertension; rv - PSHx: :59 CABG; Tonsillectomy; rv - Immunization history:: Adult Immunizations up to date, Flu vaccine is up to date. - Social history:: Smoking status: Patient/guardian denies using tobacco, the patient reports quitting approximately 9 years ago. - Family history:: not pertinent. ROS: 02:06 Constitutional: Negative for fever, chills, and weight loss, Eyes: Negative for injury, josi pain, redness, and discharge, ENT: Negative for injury, pain, and discharge, Cardiovascular: Negative for chest pain, palpitations, and edema, Respiratory: Negative for shortness of breath, cough, wheezing, and pleuritic chest pain, Abdomen/GI: Negative for abdominal pain, nausea, vomiting, diarrhea, and constipation, Back: Negative for injury and pain, : Negative for injury, bleeding, discharge, and swelling, MS/Extremity: Negative for injury and deformity, Skin: Negative for injury, rash, and discoloration, Psych: Negative for depression, anxiety, suicide ideation, homicidal ideation, and hallucinations, Allergy/Immunology: Negative for hives, rash, and allergies, Endocrine: Negative for neck swelling, polydipsia, polyuria, polyphagia, and marked weight changes, Hematologic/Lymphatic: Negative for swollen nodes, abnormal bleeding, and unusual bruising. 02:06 Neck: Positive for stiffness, tenderness, of the base of the skull. 04:15 : Negative for urinary symptoms, urinary frequency, hematuria, burning with josi urination, difficulty urinating. Exam: 02:06 Constitutional: This is a well developed, well nourished patient who is awake, alert, josi and in no acute distress. Head/Face: Normocephalic, atraumatic. Eyes: Pupils equal round and reactive to light, extra-ocular motions intact. Lids and lashes normal. Conjunctiva and sclera are non-icteric and not injected. Cornea within normal limits. Periorbital areas with no swelling, redness, or edema. ENT: Nares patent. No nasal discharge, no septal abnormalities noted. Tympanic membranes are normal and external auditory canals are clear. Oropharynx with no redness, swelling, or masses, exudates, or evidence of obstruction, uvula midline. Mucous membranes moist. Neck: Trachea midline, no thyromegaly or masses palpated, and no cervical lymphadenopathy. Supple, full range of motion without nuchal rigidity, or vertebral point tenderness. No Meningismus. Chest/axilla: Normal chest wall appearance and motion. Nontender with no deformity. No lesions are appreciated. Cardiovascular: Regular rate and rhythm with a normal S1 and S2. No gallops, murmurs, or rubs. Normal PMI, no JVD. No pulse deficits. Respiratory: Lungs have equal breath sounds bilaterally, clear to auscultation and percussion. No rales, rhonchi or wheezes noted. No increased work of breathing, no retractions or nasal flaring. Abdomen/GI: Soft, non-tender, with normal bowel sounds. No distension or tympany. No guarding or rebound. No evidence of tenderness throughout. Back: No spinal tenderness. No costovertebral tenderness. Full range of motion. Male : Normal genitalia with no discharge or lesions. Skin: Warm, dry with normal turgor. Normal color with no rashes, no lesions, and no evidence of cellulitis. MS/ Extremity: Pulses equal, no cyanosis. Neurovascular intact. Full, normal range of motion. Neuro: Awake and alert, GCS 15, oriented to person, place, time, and situation. Cranial nerves II-XII grossly intact. Motor strength 5/5 in all extremities. Sensory grossly intact. Cerebellar exam normal. Normal gait. Psych: Awake, alert, with orientation to person, place and time. Behavior, mood, and affect are within normal limits. 02:35 Neck: ROM/movement: is normal, no acute changes, pain, that is mild, with rotation to josi the left, with rotation to the right, Meningeal signs: are not present, Kernig's sign is negative, Brudzinski's sign is negative, nuchal rigidity, is not appreciated. Vital Signs: 01:48 BP 184 / 78; Pulse 64; Resp 16; Temp 97.5; Pulse Ox 99% ; Weight 116.57 kg; Height 5 rv ft. 11 in. (180.34 cm); Pain 8/10; 02:39 BP 153 / 64; Pulse 57; Resp 16; Pulse Ox 98% on R/A; rv 03:30 BP 135 / 70; Pulse 55; Resp 15; Pulse Ox 97% on R/A; rv 04:27 BP 139 / 48; Pulse 56; Resp 15; Temp 97.7; Pulse Ox 98% on R/A; Pain 2/10; rv 01:48 Body Mass Index 35.84 (116.57 kg, 180.34 cm) rv MDM: 01:53 Patient medically screened. [facility] 02:09 Data reviewed: vital signs, nurses notes, lab test result(s), EKG, radiologic studies, [facility] CT scan, plain films. 11/23 02:06 Order name: CBC with Diff; Complete Time: 02:35 [facility] 11/23 02:06 Order name: Comprehensive Metabolic Panel; Complete Time: 03:06 [facility] 11/23 02:06 Order name: CT Head C Spine [facility] 11/23 02:06 Order name: CT Head Angio [facility] 11/23 02:06 Order name: CT Neck Angio [facility] 11/23 03:36 Order name: Urine Dipstick--Ancillary (enter results); Complete Time: 04:14 [facility] 11/23 02:06 Order name: Urine Dipstick-Ancillary (obtain specimen); Complete Time: 03:19 [facility] 11/23 02:06 Order name: EKG; Complete Time: 02:07 [facility] 11/23 02:06 Order name: EKG - Nurse/Tech; Complete Time: 02:27 [facility] 11/23 02:06 Order name: Oxygen; Complete Time: 02:28 [facility] Administered Medications: 02:25 Drug: Benadryl 50 mg Route: IVP; Site: left antecubital; rv 02:53 Follow up: Response: No adverse reaction rv 02:26 Drug: NS 0.9% 500 ml Route: IV; Rate: bolus; Site: left antecubital; rv 02:38 Follow up: IV Status: Completed infusion; IV Intake: 500ml rv 02:26 Drug: TORadol 30 mg Route: IVP; Site: left antecubital; rv 02:53 Follow up: Response: No adverse reaction rv 02:26 Drug: Reglan 10 mg Route: IVP; Site: left antecubital; rv 02:53 Follow up: Response: No adverse reaction rv 02:39 Drug: NS 0.9% 1000 ml Route: IV; Rate: 125 ml/hr; Site: left antecubital; rv 04:31 Follow up: IV Status: Order to discontinue infusion; IV Intake: 250ml rv Disposition: 11/24/19 04:17 Discharged to Home. Impression: Tension-type headache, Strain of muscle, fascia and tendon at neck level, Headache, Type 1 diabetes mellitus. - Condition is Stable. - Discharge Instructions: Type 1 Diabetes Mellitus, Diagnosis, Adult, General Headache Without Cause, Muscle Strain, Diabetes Mellitus and Food, General Headache Without Cause, [id number], Type 1 Diabetes Mellitus, Self Care, Adult. - Prescriptions for Ibuprofen 600 mg Oral Tablet - take 1 tablet by ORAL route every 8 hours As needed take with food; 21 tablet. Valium 5 mg Oral Tablet - take 1 tablet by ORAL route every 8 hours As needed; 15 tablet. Zofran 4 mg Oral Tablet - take 1 tablet by ORAL route every 12 hours As needed; 20 tablet. - Medication Reconciliation Form, Thank You Letter, Antibiotic Education, Prescription Opioid Use form. - Follow up: Private Physician; When: 5 - 6 days; Reason: Recheck today's complaints, Continuance of care, Re-evaluation by your physician. Follow up: Hamlet Sherman; When: 2 - 3 days; Reason: Recheck today's complaints, Continuance of care, Re-evaluation by your physician. - Problem is new. - Symptoms have improved. Signatures: Dispatcher [employer] EDMS Holden Velez MD MD cha Vicente, Ronaldo, RN RN rv Corrections: (The following items were deleted from the chart) 04:30 04:17 11/24/2019 04:17 Discharged to Home. Impression: Tension-type headache; Strain of rv muscle, fascia and tendon at neck level; Headache; Type 1 diabetes mellitus. Condition is Stable. Discharge Instructions: Type 1 Diabetes Mellitus, Diagnosis, Adult, General Headache Without Cause, Muscle Strain, Diabetes Mellitus and Food, General Headache Without Cause, [id number], Type 1 Diabetes Mellitus, Self Care, Adult. Prescriptions for Ibuprofen 600 mg Oral Tablet - take 1 tablet by ORAL route every 8 hours As needed take with food; 21 tablet, Valium 5 mg Oral Tablet - take 1 tablet by ORAL route every 8 hours As needed; 15 tablet, Zofran 4 mg Oral Tablet - take 1 tablet by ORAL route every 12 hours As needed; 20 tablet. and Forms are Medication Reconciliation Form, Thank You Letter, Antibiotic Education, Prescription Opioid Use. Follow up: Private Physician; When: 5 - 6 days; Reason: Recheck today's complaints, Continuance of care, Re-evaluation by your physician. Follow up: Hamlet Sherman; When: 2 - 3 days; Reason: Recheck today's complaints, Continuance of care, Re-evaluation by your physician. Problem is new. Symptoms have improved. josi
[2019-11-24 04:42] VITALS: BP 139/48; TEMP 97.7; O2SAT 98
--- NOTE | 2019-11-24 11:17 | RAD REPORT ---
EXAM DESCRIPTION: CT - Neck Angio - 11/24/2019 4:28 am CLINICAL HISTORY: The patient is 64 years old and is Male; PAIN TECHNIQUE: Axial computed tomographic angiography images of the neck with intravenous contrast. Sa gittal and coronal reformatted images were created and reviewed. This CT exam was performed using o ne or more of the following dose reduction techniques: automated exposure control, adjustment of th e mA and/or kV according to patient size, and/or use of iterative reconstruction technique. MIP reconstructed images were created and reviewed. COMPARISON: No relevant prior studies available. FINDINGS: VASCULATURE: RIGHT COMMON CAROTID ARTERY: Atherosclerosis of the right carotid artery is present most prominen t at the bifurcation. Narrowing of approximately 30% is present. RIGHT INTERNAL CAROTID ARTERY: Unremarkable. RIGHT EXTERNAL CAROTID ARTERY: Unremarkable. No occlusion. RIGHT VERTEBRAL ARTERY: The right vertebral artery is hypoplastic. No significant stenosis. No dissection or occlusion. LEFT COMMON CAROTID ARTERY: Atherosclerosis of the left carotid artery is present most prominent at the level of the bifurcation with narrowing of at least 50%. No dissection or occlusion. LEFT INTERNAL CAROTID ARTERY: Unremarkable. LEFT EXTERNAL CAROTID ARTERY: Unremarkable. No occlusion. LEFT VERTEBRAL ARTERY: Unremarkable. No significant stenosis. No dissection or occlusion. NECK: BONES/JOINTS: No acute fracture. No dislocation. SOFT TISSUES: Unremarkable as visualized. No mass. CAROTID STENOSIS REFERENCE USING NASCET CRITERIA: % ICA stenosis = (1 - narrowest ICA diameter/diameter of distal cervical ICA) x 100. Mild - Moderate - 50-69% stenosis. Severe - 70-94% stenosis. Near occlusion - 95-99% stenosis. Occluded - 100% stenosis. IMPRESSION: Atherosclerosis of the carotid systems with associated narrowing at the level of t he carotid bifurcation, 50% on the left and 30% on the right. If there is continued concern, a caroti d ultrasound could be performed. Electronically signed by: Jackie Connor MD 11/24/2019 4:07 AM CDT Due to temporary technical issues with the PACS/Fluency reporting system, reports are being signed by the in house radiologist as a courtesy to ensure prompt reporting. The interpreting radiologist is f ully responsible for the content of the report.
--- NOTE | 2019-11-24 11:35 | RAD REPORT ---
EXAM DESCRIPTION: CT - [id number] - 11/24/2019 4:28 am CLINICAL HISTORY: The patient is 64 years old and is Male; PAIN TECHNIQUE: Axial computed tomography images of the head/brain and cervical spine without intravenous contrast. Sagittal and coronal reformatted images were created and reviewed. This CT exam was pe rformed using one or more of the following dose reduction techniques: automated exposure control, a djustment of the mA and/or kV according to patient size, and/or use of iterative reconstruction techn ique. COMPARISON: No relevant prior studies available. FINDINGS: BRAIN: Unremarkable. No hemorrhage. No significant white matter disease. No edema. VENTRICLES: Unremarkable. No ventriculomegaly. SKULL: No acute fracture. SINUSES: Unremarkable as visualized. No acute sinusitis. MASTOID AIR CELLS: Unremarkable as visualized. No mastoid effusion. VERTEBRAE: Reversal of normal cervical curvature is present. The vertebral body heights and alig nment are maintained. DISCS/SPINAL CANAL/NEURAL FORAMINA: There is multi-level intervertebral disc height loss. There a re disc-osteophyte complexes at several levels, with associated mild spinal canal narrowing. There is also facet hypertrophy and uncovertebral joint osteophytosis, with associated multilevel neural fora sangeeta narrowing. SOFT TISSUES: The soft tissues are normal. LUNG APICES: Unremarkable as visualized. IMPRESSION: 1. No acute intracranial findings. 2. Reversal of normal cervical curvature which may be secondary to patient position versus muscle s pasm. No acute findings. Electronically signed by: Jackie Connor MD 11/24/2019 4:02 AM CDT Due to temporary technical issues with the PACS/Fluency reporting system, reports are being signed by the in house radiologist as a courtesy to ensure prompt reporting. The interpreting radiologist is f ully responsible for the content of the report.
--- NOTE | 2019-11-24 11:46 | RAD REPORT ---
EXAM DESCRIPTION: CT - Head angio - 11/24/2019 4:28 am CLINICAL HISTORY: The patient is 64 years old and is Male; HEADACHE TECHNIQUE: Axial computed tomographic angiography images of the head with intravenous contrast. Sa gittal and coronal reformatted images were created and reviewed. This CT exam was performed using o ne or more of the following dose reduction techniques: automated exposure control, adjustment of th e mA and/or kV according to patient size, and/or use of iterative reconstruction technique. MIP reconstructed images were created and reviewed. COMPARISON: No relevant prior studies available. FINDINGS: RIGHT INTERNAL CAROTID ARTERY: Atherosclerosis of the cavernous portion of the internal carotid artery is present. No acute findings. Intracranial segment is patent with no significant st enosis. No aneurysm. RIGHT ANTERIOR CEREBRAL ARTERY: Unremarkable. No occlusion or significant stenosis. No aneur ysm. RIGHT MIDDLE CEREBRAL ARTERY: Unremarkable. No occlusion or significant stenosis. No aneurys m. RIGHT POSTERIOR CEREBRAL ARTERY: Unremarkable. No occlusion or significant stenosis. No aneu rysm. RIGHT VERTEBRAL ARTERY: Atherosclerosis of the distal vertebral artery is present. The right verte bral artery is hypoplastic. LEFT INTERNAL CAROTID ARTERY: Atherosclerosis of the cavernous portion of the internal carotid ar maynor is present. No acute findings. Intracranial segment is patent with no significant stenosis. No aneurysm. LEFT ANTERIOR CEREBRAL ARTERY: Unremarkable. No occlusion or significant stenosis. No aneury sm. LEFT MIDDLE CEREBRAL ARTERY: Unremarkable. No occlusion or significant stenosis. No aneurysm . LEFT POSTERIOR CEREBRAL ARTERY: Unremarkable. No occlusion or significant stenosis. No aneur ysm. LEFT VERTEBRAL ARTERY: Atherosclerosis of the distal vertebral artery is present. BASILAR ARTERY: Unremarkable. No significant stenosis. No occlusion. No aneurysm. IMPRESSION: Unremarkable CTA of the head. Electronically signed by: Jackie Connor MD 11/24/2019 3:59 AM CDT Due to temporary technical issues with the PACS/Fluency reporting system, reports are being signed by the in house radiologist as a courtesy to ensure prompt reporting. The interpreting radiologist is f alexusly responsible for the content of the report.
--- NOTE | 2019-11-26 07:24 | EKG ---
Test Date: 2019-11-24 Test Time: 02:12:30 Special Education Tutor: ADRIANA MEASUREMENT RESULTS: Intervals: Rate: 54 DE: 180 QRSD: 176 QT: 472 QTc: 447 [place]: P: 59 DE: 180 QRS: -75 T: 37 INTERPRETIVE STATEMENTS: Sinus bradycardia Left axis deviation Right bundle branch block Septal infarct, age undetermined Abnormal ECG Compared to ECG 05/03/2019 12:09:54 Sinus rhythm no longer present Myocardial infarct finding still present Electronically Signed On 11-26-19 07:22:19 CDT by Dion Wagner
== END 2019-11-24 04:30 | disposition home or self-care (01) ==
LOC: ER 01:36
DX: G44.209 Tension-type headache, unspecified, not intractable (principal); S16.1XXA Strain of muscle, fascia and tendon at neck level, initial encounter; X58.XXXA Exposure to other specified factors, initial encounter; I65.23 Occlusion and stenosis of bilateral carotid arteries; R00.1 Bradycardia, unspecified; I45.10 Unspecified right bundle-branch block; R94.31 Abnormal electrocardiogram [ECG] [EKG]; I25.2 Old myocardial infarction; E10.9 Type 1 diabetes mellitus without complications; E78.5 Hyperlipidemia, unspecified; I10 Essential (primary) hypertension; F41.9 Anxiety disorder, unspecified; Z79.4 Long term (current) use of insulin; Z79.02 Long term (current) use of antithrombotics/antiplatelets; Z79.899 Other long term (current) drug therapy; Z87.891 Personal history of nicotine dependence; Z95.1 Presence of aortocoronary bypass graft
CPT/HCPCS: 96361; 93005; 85025; 36415; 81003; 80053; 70450; 72125; 70496; 70498; 96375; 96374; 99284; Q9967; J2765; J1200; J7030

== ENCOUNTER 2019-12-01 06:47 | Emergency (ER) | payer BC ==
--- OUTSIDE RECORDS SUMMARY | 2019-12-01 06:50 | XMS REPORT ---
[...] Active Assessment Unspecified atherosclerosis of I70.209 Active [place] arteries of extremities, unspecified extremity Assessment PUD (peptic ulcer disease) K27.9 A ctive Assessment Intermittent claudication I73.9 Ac tive Problem Unspecified atherosclerosis of I70.209 Active [place] arteries of extremities, unspecified extremity Assessment Peripheral [...] Status Dosage System Date Date Hydrochlorothiazide ND 86305009021 25 MG Orally Act mima 1 tablet Once a day in the morning Bystolic ND 90078223092 20 MG Orally Active 1 tabl et Once a day in PM - [facility] 72988738213 81 MG Orally Active 1 tabl et Once a day Zyrtec Allergy [facility] 19381734304 10 MG Orally Active 1 tablet Once a day Dexilant [facility] 09108654875 60 MG Orally Aug 16, Active 1 caps ule Once a day 2019 Glyburide-Metformin [facility] 52357533791 5-500 MG Active 1 tablet Orally twice a with a day meal Plavix [facility] 28324138002 75 MG Orally Active 1 table t Once a day Cozaar [facility] 71589442094 100 MG Orally Active 1 tabl et Once a day in AM Losartan Potassium [facility] 53487875050 100 MG Orally Act mima 1 tablet Once a day Cilostazol [facility] 06428719534 100 MG Orally Active 1 t ablet once a day 30 minutes before or 2 hours after breakfast and dinner Bystolic [facility] 98695805985 20 MG Orally Active 1 tabl et Once a day Lantus SoloStar [facility] 54560729419 100 UNIT/ML Active 35 units Subcutaneous daily as directed Trulicity [facility] 15536765660 1.5 MG/0.5ML Active 1.5 m g Subcutaneous once a week Rosuvastatin Calcium [facility] 44504301438 10MG Orally Act mima 1 tablet Once a day Humalog KwikPen [facility] 18239075728 100 UNIT/ML Active 12 units Subcutaneous tid before meals Results No Known Results Summary Purpose eClinicalWorks Submission
--- OUTSIDE RECORDS SUMMARY | 2019-12-01 06:50 | XMS REPORT ---
:1955 Author Organization [facility] t Address [facility] [place] [address] Care Team Providers Name Role Phone Unavailable Unavailable Unavailable Problems Condition Condition Condition Status Onset Resolution Last Treatin g Comments Name Details Category Date Date Treatment Clinician Date Memory Memory Problem Active changes changes Tremor Tremor Problem Active Intermitten Intermitten Diagnosis Active t t claudicatio claudicatio n n Pain in Pain in Problem Active right hip right hip Hyperlipide Hyperlipide Problem Active deya deya Pain in Pain in Problem Active left hip left hip Unspecified Unspecified Problem Active atheroscler atheroscler osis of osis of [place] arteries of arteries of extremities extremities , , unspecified unspecified extremity extremity Type 2 Type 2 Problem Active diabetes diabetes mellitus mellitus with with diabetic diabetic peripheral peripheral angiopathy angiopathy without without gangrene gangrene Allergic Allergic Problem Active arthritis arthritis Depression Depression Problem Active with with anxiety anxiety Diabetic Diabetic Problem Active mononeuropa mononeuropa thy thy associated associated with type 2 with type 2 diabetes diabetes mellitus mellitus Stented Stented Problem Active coronary coronary artery artery HTN HTN Problem Active (hypertensi (hypertensi on) on) Obesity Obesity Problem Active Diabetes Diabetes Problem Active CAD CAD Problem Active (coronary (coronary artery artery disease) disease) Multiple Multiple Problem Active joint pain joint pain Lower Lower Problem Active extremity extremity edema edema PUD (peptic PUD (peptic Problem Active ulcer ulcer disease) disease) Allergies, Adverse Reactions, Alerts Allergy Allergy Status Severity Reaction(s) Onset Inactive Treating C omments Name Type Date Date Clinician Lyricwarren Adverse Active Info Not Reaction Available Cipro Adverse Active Info Not Reaction Available Medications Ordered Filled Start Stop Current Ordering Indication Dosage Frequency Signature Comments Components Medication Medication Date Date Medication? Clinician (SIG) Name Name Bystolic Bystolic Yes Na Mccracken 1 tablet Immunizations Ordered Immunization Name Filled Immunization Name Date Sta tus Comments Afluria Afluria 2019-05-10 Completed 00:00:00 Encounters Start End Encounter Admission Attending Care Care Encounter Date/Time Date/Time Type Type Clinicians Facility Department ID 2019-11-26 2019-11-26 [id number] 11:11:00 11:11:00 [email or web address] 2019-10-18 2019-10-18 [id number] 14:21:00 14:21:00 [email or web address] 2019-08-16 2019-08-16 [id number] 08:00:00 08:00:00 [email or web address] 2019-05-28 2019-05-28 [id number] 16:12:00 16:12:00 [email or web address] 2019-05-10 2019-05-10 [id number] 15:12:00 15:12:00 [email or web address] 2019-05-10 2019-05-10 [id number] 08:20:00 08:20:00 [email or web address] 2019-04-26 2019-04-26 [id number] 10:03:00 10:03:00 [email or web address] 2019-02-05 2019-02-05 [id number] 13:55:00 13:55:00 [email or web address] 2019-02-05 2019-02-05 [id number] 09:40:00 09:40:00 [email or web address] 2018-12-15 2018-12-15 [id number] 14:33:00 14:33:00 [email or web address] 2018-12-06 2018-12-06 [id number] 08:45:00 08:45:00 [email or web address] 2018-12-06 2018-12-06 [id number] 08:23:00 08:23:00 [email or web address] 2018-11-22 2018-11-22 [id number] 09:23:00 09:23:[address] [facility] 2018-11-21 2018-11-21 [id number] 10:16:00 10:16:[address] [facility] 2018-11-10 2018-11-10 [id number] 08:15:00 08:15:[address] [facility] 2018-09-21 2018-09-21 [id number] 15:00:00 15:00:[address] [facility] 2018-08-29 2018-08-29 [id number] 15:57:00 15:57:[address] [facility] 2018-08-11 2018-08-11 [id number] 08:30:00 08:30:[address] [facility] 2018-05-08 2018-05-08 [id number] 11:56:00 11:56:[address] [facility] 2018-05-04 2018-05-04 [id number] 10:17:00 10:17:[address] [facility] 2018-04-28 2018-04-28 [id number] 09:45:00 09:45:[address] [facility] 2018-03-15 2018-03-15 [id number] 09:11:00 09:11:[address] [facility] 2018-02-14 2018-02-14 [id number] 08:46:00 08:46:[address] [facility] 2018-01-27 2018-01-27 [id number] 08:15:00 08:15:[address] [facility]
--- OUTSIDE RECORDS SUMMARY | 2019-12-01 06:50 | XMS REPORT ---
:1955 Author Organization eClinicalWorks Care Team Providers Name Role Phone Mccracken, Na Provider Role Unavailable Allergies No Known Allergies Problems Problem Type Condition Code Onset Dates Condition Statu s Problem Unspecified atherosclerosis of I70.209 Active [place] arteries of extremities, unspecified extremity Problem Memory [...] Start Date End Date Status Dosage Plavix [facility] 52560224726 75 MG Orally Once Active 1 tablet a day Results No Known Results Summary Purpose eClinicalWorks Submission
--- OUTSIDE RECORDS SUMMARY | 2019-12-01 06:51 | XMS REPORT ---
[...] Problem Multiple joint pain M25.50 Active Assessment CAD (coronary artery disease) I25.10 Active Assessment Peripheral vascular disease I73.9 Active Problem Lower extremity edema R60.0 Active [...] Active Problem Unspecified atherosclerosis of I70.209 Active [place] arteries of extremities, unspecified extremity Assessment Intermittent claudication I73.9 Ac tive Problem Hyperlipidemia E78.5 Active Problem Type 2 diabetes mellitus with E11.51 Active diabetic peripheral angiopathy without gangrene Medications No Known Medications Results No Known Results Summary Purpose eClinicalWorks Submission
--- OUTSIDE RECORDS SUMMARY | 2019-12-01 06:51 | XMS REPORT ---
[...] Active Problem Unspecified atherosclerosis of I70.209 Active [place] arteries of extremities, unspecified extremity Problem Hyperlipidemia E78.5 Active Problem Type 2 diabetes mellitus with E11.51 Active diabetic peripheral angiopathy without gangrene Medications Medication Code System Code Instructions Start Date End Date [facility] D[id number] MG Orally Once Active 1 tablet a day Results No Known Results Summary Purpose eClinicalWorks Submission
--- NOTE | 2019-12-01 07:07 | EDPHYS ---
Physician Documentation [facility] Name: Alexander Walker Age: 64 yrs Sex: Male : 1955 Arrival Date: 12/01/2019 Time: 06:50 Bed 5 Private MD: Sophia Mccracken ED Physician Landon Bennett HPI: 11/30 07:09 This 64 yrs old Male presents to ER via Unassigned with complaints of Jaw snw Pain, Ear Pain, Neck Pain, >24Hrs Old. 07:09 Onset: The symptoms/episode began/occurred acutely, 1.5 week(s) ago, and became snw persistent. Associated signs and symptoms: The patient has no apparent associated signs or symptoms, Pertinent negatives: fever, headache, seizure, vomiting. Modifying factors: The patient symptoms are alleviated by nothing, the patient symptoms are aggravated by movement. The patient has experienced similar episodes in the past. The patient has been recently seen by a physician: The patient has been recently seen at the [facility] Emergency Department, last week, for similar complaints was given a prescription for pain medications, was given a prescription for an antiemetic. no new injury, no fever, pt states he is having trouble sleeping. Historical: - Allergies: 07:10 Ciprofloxacin; mg2 07:10 Ciprofloxacin HCl; mg2 07:10 Latex, Natural Rubber; mg2 - PMHx: 07:10 Anxiety; Hyperlipidemia; Diabetes - IDDM; Hypertension; mg2 - Immunization history:: Flu vaccine is up to date. - Social history:: Smoking status: Patient/guardian denies using tobacco, Patient uses alcohol, occasionally. Patient/guardian denies using street drugs, IV drugs. ROS: 07:08 Constitutional: Negative for fever, chills, and weight loss, Eyes: Negative for injury, snw pain, redness, and discharge, ENT: Negative for injury, pain, and discharge, Cardiovascular: Negative for chest pain, palpitations, and edema, Respiratory: Negative for shortness of breath, cough, wheezing, and pleuritic chest pain, Abdomen/GI: Negative for abdominal pain, nausea, vomiting, diarrhea, and constipation, Back: Negative for injury and pain, : Negative for injury, bleeding, discharge, and swelling, MS/Extremity: Negative for injury and deformity, Skin: Negative for injury, rash, and discoloration, Neuro: Negative for headache, weakness, numbness, tingling, and seizure. 07:08 Neck: Positive for pain with movement, of the base of the skull, left base of the skull and right base of the skull. Exam: 07:08 Constitutional: This is a well developed, well nourished patient who is awake, alert, snw and in no acute distress. Head/Face: Normocephalic, atraumatic. Eyes: Pupils equal round and reactive to light, extra-ocular motions intact. Lids and lashes normal. Conjunctiva and sclera are non-icteric and not injected. Cornea within normal limits. Periorbital areas with no swelling, redness, or edema. ENT: Nares patent. No nasal discharge, no septal abnormalities noted. Tympanic membranes are normal and external auditory canals are clear. Oropharynx with no redness, swelling, or masses, exudates, or evidence of obstruction, uvula midline. Mucous membranes moist. Neck: Trachea midline, no thyromegaly or masses palpated, and no cervical lymphadenopathy. Supple, full range of motion without nuchal rigidity, or vertebral point tenderness. No Meningismus. Chest/axilla: Normal chest wall appearance and motion. Nontender with no deformity. No lesions are appreciated. Cardiovascular: Regular rate and rhythm with a normal S1 and S2. No gallops, murmurs, or rubs. Normal PMI, no JVD. No pulse deficits. Respiratory: Lungs have equal breath sounds bilaterally, clear to auscultation and percussion. No rales, rhonchi or wheezes noted. No increased work of breathing, no retractions or nasal flaring. Abdomen/GI: Soft, non-tender, with normal bowel sounds. No distension or tympany. No guarding or rebound. No evidence of tenderness throughout. Back: No spinal tenderness. No costovertebral tenderness. Full range of motion. Skin: Warm, dry with normal turgor. Normal color with no rashes, no lesions, and no evidence of cellulitis. MS/ Extremity: Pulses equal, no cyanosis. Neurovascular intact. Full, normal range of motion. Neuro: Awake and alert, GCS 15, oriented to person, place, time, and situation. Cranial nerves II-XII grossly intact. Motor strength 5/5 in all extremities. Sensory grossly intact. Cerebellar exam normal. Normal gait. Psych: Awake, alert, with orientation to person, place and time. Behavior, mood, and affect are within normal limits. Vital Signs: 07:07 BP 180 / 76; Pulse 71; Resp 18; Temp 98.9; Pulse Ox 99% on R/A; Weight 117.03 kg; mg2 Height 5 ft. 11 in. (180.34 cm); 07:07 Body Mass Index 35.98 (117.03 kg, 180.34 cm) mg2 MDM: 07:04 Patient medically screened. snw 07:07 Data reviewed: vital signs, nurses notes. Data interpreted: Pulse oximetry: on room air snw is 100 %. Interpretation: normal. Counseling: I had a detailed discussion with the patient and/or guardian regarding: the historical points, exam findings, and any diagnostic results supporting the discharge/admit diagnosis, to return to the emergency department if symptoms worsen or persist or if there are any questions or concerns that arise at home. Special discussion: I have referred the patient to see his PCP for further evaluation of high blood pressure. Based on the history and exam findings, there is no indication for further emergent testing or inpatient evaluation. I discussed with the patient/guardian the need to see the primary care provider for further evaluation of the symptoms. Administered Medications: 07:06 CANCELLED (other intervention used): Ativan 1 mg PO once snw 07:28 Drug: TORadol 30 mg Route: IM; Site: right deltoid; iw 07:44 Follow up: Response: No adverse reaction iw 07:28 Drug: Ativan 0.5 mg Route: PO; iw 07:44 Follow up: Response: No adverse reaction iw Disposition: 08:03 Co-signature as Attending Physician, Landon Bennett MD. rn Disposition: 12/01/19 07:06 Discharged to Home. Impression: Torticollis. - Condition is Stable. - Discharge Instructions: Heat Therapy. - Medication Reconciliation Form, Thank You Letter, Antibiotic Education, Prescription Opioid Use form. - Follow up: Emergency Department; When: As needed; Reason: Worsening of condition. Follow up: Sophia Mccracken MD; When: 2 - 3 days; Reason: Recheck today's complaints, Continuance of care, Re-evaluation by your physician. Signatures: Irene Gleason, FLAVIO-C [employer] ATTENDANT-Csnw Jenise Goodman RN RN iw Landon Bennett MD MD rn Gardose, Michele, RN RN mg2 Corrections: (The following items were deleted from the chart) 07:06 07:05 Ativan 1 mg PO once ordered. snw snw 07:44 07:06 12/01/2019 07:06 Discharged to Home. Impression: Torticollis. Condition is iw Stable. Forms are Medication Reconciliation Form, Thank You Letter, Antibiotic Education, Prescription Opioid Use. Follow up: Emergency Department; When: As needed; Reason: Worsening of condition. Follow up: Sophia Mccracken; When: 2 - 3 days; Reason: Recheck today's complaints, Continuance of care, Re-evaluation by your physician. snw
[2019-12-01] MEDS ORDERED: KETOROLAC 30 MG/ML INJ ONE (07:23)
[2019-12-01] MEDS ORDERED: LORAZEPAM 0.5 MG TABLET ONE (07:23)
--- NOTE | 2019-12-01 07:46 | ER ---
Nurse's Notes [facility] Name: Alexander Walker Age: 64 yrs Sex: Male : 1955 Arrival Date: 12/01/2019 Time: 06:50 Bed 5 Private MD: Sophia Mccracken Diagnosis: Torticollis Presentation: 11/30 07:07 Chief complaint: Patient states: i was here last sat for nape, bilateral ear and mg2 headache. i was given prescription and im not getting any better. i took diazepam and motrin \T\ 0600. Coronavirus screen: Proceed with normal triage. Patient denies a cough. Patient denies measured and/or subjective temperature greater than 100.4F prior to today's visit. Patient denies travel on a cruise ship or to a country the [facility] currently lists as an affected area. Patient denies contact with known and/or suspected case of COVID-19. Ebola Screen: No symptoms or risks identified at this time. Initial Sepsis Screen: Does the patient meet any 2 criteria? No. Patient's initial sepsis screen is negative. Does the patient have a suspected source of infection? No. Patient's initial sepsis screen is negative. Risk Assessment: Do you want to hurt yourself or someone else? Patient reports no desire to harm self or others. Onset of symptoms was November 2019. 07:07 Method Of Arrival: Ambulatory mg2 07:07 Acuity: RENY 4 mg2 Triage Assessment: 07:43 General: Appears in no apparent distress. Behavior is calm. iw Historical: - Allergies: 07:10 Ciprofloxacin; mg2 07:10 Ciprofloxacin HCl; mg2 07:10 Latex, Natural Rubber; mg2 - PMHx: 07:10 Anxiety; Hyperlipidemia; Diabetes - IDDM; Hypertension; mg2 - Immunization history:: Flu vaccine is up to date. - Social history:: Smoking status: Patient/guardian denies using tobacco, Patient uses alcohol, occasionally. Patient/guardian denies using street drugs, IV drugs. Screenin:43 Abuse screen: Denies threats or abuse. Denies injuries from another. Nutritional iw screening: No deficits noted. Tuberculosis screening: No symptoms or risk factors identified. Fall Risk None identified. Assessment: 07:25 General: Appears in no apparent distress. Behavior is calm, cooperative. Pain: iw Complains of pain in scalp and right base of the skull and left base of the skull and base of the skull. Neuro: Level of Consciousness is awake, alert, obeys commands, Oriented to person, place, time, situation, Moves all extremities. Full function. Neuro: Reports headache. Cardiovascular: Capillary refill < 3 seconds in bilateral fingers Patient's skin is warm and dry. Respiratory: Respiratory effort is even, unlabored, Respiratory pattern is regular, symmetrical. EENT: Ear canal Sclera/Cornea. Derm: Skin is intact, is healthy with good turgor. Vital Signs: 07:07 BP 180 / 76; Pulse 71; Resp 18; Temp 98.9; Pulse Ox 99% on R/A; Weight 117.03 kg; mg2 Height 5 ft. 11 in. (180.34 cm); 07:07 Body Mass Index 35.98 (117.03 kg, 180.34 cm) mg2 ED Course: 06:50 Patient arrived in ED. as 06:50 Sophia Mccracken MD is Private Physician. as 06:54 Irene Gleason FNP-C [facility]. snw 06:56 Landon Bennett MD is Attending Physician. snw 07:06 Sophia Mccracken MD is Referral Physician. snw 07:09 Triage completed. mg2 07:09 Arm band placed on. mg2 07:15 Jenise Goodman, RN is Primary Nurse. iw 07:15 Patient has correct armband on for positive identification. iw 07:43 No provider procedures requiring assistance completed. Patient did not have IV access iw during this emergency room visit. Administered Medications: 07:06 CANCELLED (other intervention used): Ativan 1 mg PO once snw 07:28 Drug: TORadol 30 mg Route: IM; Site: right deltoid; iw 07:44 Follow up: Response: No adverse reaction iw 07:28 Drug: Ativan 0.5 mg Route: PO; iw 07:44 Follow up: Response: No adverse reaction iw Outcome: 07:06 Discharge ordered by . snw 07:43 Discharged to home ambulatory. iw 07:43 Condition: good 07:43 Discharge instructions given to patient, Instructed on discharge instructions, follow up and referral plans. Demonstrated understanding of instructions, follow-up care. 07:44 Patient left the ED. iw Signatures: Irene Gleason FNP-C FNP-CsnRamila Diana Irene, RN RN iw Alvaro Alexis, RN RN mg2
[2019-12-01 07:51] VITALS: BP 180/76; TEMP 98.9; O2SAT 99
== END 2019-12-01 07:44 | disposition home or self-care (01) ==
LOC: ER 06:47
DX: M43.6 Torticollis (principal); I10 Essential (primary) hypertension; Z88.1 Allergy status to other antibiotic agents; Z91.040 Latex allergy status; Z91.048 Other nonmedicinal substance allergy status
CPT/HCPCS: 96372; 99283

== ENCOUNTER 2020-05-08 06:38 | Day surgery (SDC) | payer BC ==
[2020-05-02 11:55] LABS: Absolute Lymphocytes (CBC) 1.9 K/uL (0.7-4.9); Basophils % 1.1 % (0-1.3); Hematocrit 41.3 % (39.6-49.0); Lymphocytes % 24.6 % (15.3-44.8); MPV 9.2 fL (7.6-11.3); RBC Red Blood Cell Count 4.57 M/uL (4.33-5.43)
[2020-05-02 12:00] LABS: Protime INR 1.03
[2020-05-02 12:15] LABS: Potassium 4.1 mmol/L (3.5-5.1)
--- NOTE | 2020-05-02 12:43 | RAD REPORT ---
EXAM DESCRIPTION: RAD - Chest Pa And Lat (2 Views) - 05/02/2020 11:40 am CLINICAL HISTORY: preop Chest pain. COMPARISON: Chest Single View dated 05/03/2019; Chest Single View dated 08/13/2018; CHEST SINGLE VIEW dated 12/13/2010; CHEST PA AND LAT 2 VIEW dated 09/21/2010 FINDINGS: The lungs are clear. The heart is normal in size. No displaced fractures. Sternotomy wires seen. IMPRESSION: No acute or concerning finding suspected.
--- OUTSIDE RECORDS SUMMARY | 2020-05-08 06:41 | XMS REPORT ---
[...] Active Problem Unspecified atherosclerosis of I70.209 Active [place] arteries of extremities, unspecified extremity Problem Hyperlipidemia E78.5 Active Problem Type 2 diabetes mellitus with E11.51 Active diabetic peripheral angiopathy without gangrene Medications Medication Code System Code Instructions Start Date End Date Status Dosage [facility] 08608593920 10 MG P.O Q day Active TAKE 1 TABLET BY MOUTH ONCE A DAY Results No Known Results Summary Purpose eClinicalWorks Submission
--- OUTSIDE RECORDS SUMMARY | 2020-05-08 06:41 | XMS REPORT | Clinical Summary ---
:1955 Author Organization [facility] Address [address] [place] [address] Care Team Providers Name Role Phone Elvi Mccracken DO Primary Care Provider Allergies Active Allergy Reactions Severity Noted Date Comments Ciprofloxacin Other (See Comments) 03/07/2017 halluc ination Latex Rash Low 03/07/2017 Morphine Other (See Comments) 03/07/2017 Halluci nation Medications Medication Sig Dispensed Refills Start End Status Date Date glyburide-metformin Take 2 0 Active (GLUCOVANCE) 5-500 mg tablets by per tablet mouth 2 (two) times a day with meals. dulaglutide (TRULICITY) Inject 0.75 0 Active 0.75 mg/0.5 mL pen mg under the injector skin every 7 days. sundays INSULIN LISPRO (HUMALOG Inject 15 0 Active SUBQ) Units under the skin 3 (three) times a day. losartan (COZAAR) 100 Take 100 mg 0 Active MG tablet by mouth every morning. nebivolol (BYSTOLIC) 10 Take 10 mg 0 Active MG tablet by mouth every evening. CLOPIDOGREL BISULFATE Take 75 mg 0 Active (CLOPIDOGREL ORAL) by mouth daily. rosuvastatin (CRESTOR) Take 10 mg 0 Active 10 MG tablet by mouth nightly. cetirizine (ZyrTEC) 10 Take 10 mg 0 Active MG tablet by mouth nightly. aspirin (ECOTRIN) 81 MG Take 81 mg 0 Active enteric coated tablet by mouth nightly. insulin GLARGINE Inject 40 0 Act mima (LANTUS) 100 unit/mL Units under injection (vial) the skin nightly. UNABLE TO FIND [facility] OTC 0 Act mima - 1 PO QHS hydroCHLOROthiazide Take 25 mg 0 05/10/ Active (HYDRODIURIL) 25 MG by mouth 19 tablet every morning. ascorbic acid, vitamin Take 1,000 0 Active C, (vitamin C) 1000 MG mg by mouth tablet daily. vitamin E 400 UNIT Take 400 0 A ctive capsule Units by mouth daily. folic acid-vit B6-vit Take 1 90 each 3 09/26/19 Active B12 (FOLBEE) 2.5-25-1 tablet by 20 mg tabletIndications: mouth daily. Polyneuropathy, Paresthesia, Bilateral carpal tunnel syndrome memantine (NAMENDA) 10 Take 1 60 tablet 11 09/26/19 Active MG tabletIndications: tablet (06 03 021 Memory loss or mg total) by impairment mouth 2 (two) times a day. ibuprofen (ADVIL) 600 Take 600 mg 0 Active MG tablet by mouth every 6 (six) hours as needed. DULoxetine (Cymbalta) Take 2 tabs 270 capsule 1 02/08/20 Active 30 MG at night x 1 20 capsuleIndications: month, then Polyneuropathy, increase to Paresthesia 3 tabs at night and continue amLODIPine (NORVASC) 5 0 02/13/20 Discontinued mg tablet 019 (Therapy completed) cyanocobalamin 1,000 1000mcg q d 30 mL 2 03/28/20 Discontinued mcg/mL injection x 7days; 19 019 (Re order) 1000mcg weekly x 4wks; 1000 mcg q month x 12 months (include needles and syringes) cyanocobalamin 1,000 INJECT 1 ML 30 mL 2 05/23/20 Discontinued mcg/mL injection BY MOUTH 019 (Th erapy ONCE A WEEK complete d) FOR 4 WEEKS pantoprazole (PROTONIX) Take 40 mg 0 03/27/2009/26 Discontinued 40 MG EC tablet by mouth 2 020 (Th erapy (two) times complete d) a day. donepezil (ARICEPT) 5 Take 1 30 tablet 0 06/01/20 Discontinued MG tabletIndications: tablet (5 mg 020 (Therapy Memory loss or total) by compl eted) impairment mouth nightly. donepezil (ARICEPT) 10 Take 1 30 tablet 3 06/01/20 Discontinued MG tabletIndications: tablet (10 019 (Reorder) Memory loss or mg total) by impairment mouth nightly. donepezil (ARICEPT) 10 Take 1 30 tablet 3 06/01/20 Discontinued MG tabletIndications: tablet (10 020 (Therapy Memory loss or mg total) by co mpleted) impairment mouth nightly. memantine (NAMENDA) 5 Wk 1: 5 mg 84 tablet 0 09/26/19 Discontinued MG tabletIndications: at night W2: 20 020 (Dose Memory loss or 5 mg twice adju stment) impairment daily W3:10 mg am 5 mg night DULoxetine (CYMBALTA) Take 1 30 capsule 6 09/26/19 Discontinued 30 MG capsule (30 20 020 (Reorder ) capsuleIndications: mg total) by Polyneuropathy, mouth daily. Paresthesia diazePAM (VALIUM) 5 MG Take 5 mg by 0 01/14 01/14 Discontinued tablet mouth every 020 (Therapy 6 (six) completed) hours as needed. DULoxetine (Cymbalta) Take 1 30 capsule 6 12/04/19 Discontinued 30 MG capsule (30 020 (Reorder ) capsuleIndications: mg total) by Polyneuropathy, mouth daily. Paresthesia Active Problems No known active problems Encounters Date Type Specialty Care Team Description 04/22/2020 Telemedicine Neurology Leonardo Naranjo MD Polyneuropat hy (Primary Dx); Paresthesia; Bilateral carpa l tunnel syndrome 04/16/2020 Telephone Neurology Naomi Bedolla MA 04/15/2020 Telephone Neurology Naomi Bedolla MA 03/13/2020 Hospital Encounter Radiology Leonardo Naranjo MD Memory loss or impairment 03/13/2020 Hospital Encounter Radiology Leonardo Naranjo MD Hyper reflexia; Clonus 03/13/2020 Hospital Encounter Radiology Leonardo Naranjo MD Hyper reflexia; Clonus 03/13/2020 Hospital Encounter Radiology Leonardo Naranjo MD Hyper reflexia; Clonus 03/13/2020 Travel 02/25/2020 Travel 02/08/2020 Office Visit Neurology Leonardo Naranjo MD Polyneuropat hy (Primary Dx); Hyper reflexia; Clonus; Memory loss or impairment; Paresthesia 02/08/2020 Travel 12/05/2019 Travel 12/04/2019 Telemedicine Neurology Leonardo Naranjo MD Memory loss or impairment (Primary Dx); Polyneuropathy; Paresthesia 11/30/2019 Telephone Neurology Naomi Bedolla MA 11/30/2019 Travel 09/26/2019 Office Visit Neurology Leonardo Naranjo MD Polyneuropat hy (Primary Dx); Memory loss or impairment; Paresthesia; Bilateral carpa l tunnel syndrome 06/25/2019 Refill Neurology Leonardo Naranjo MD Memory loss or impairment 06/14/2019 Hospital Encounter Radiology AttTroy samayoa Perip heral vascular disease, unspec ified (HCC) 06/04/2019 Transcribe Orders Radiology AttTroy samayoa Periph erahaydee vascular disease, unspec ified (HCC) (Primary Dx) 06/01/2019 Office Visit Neurology Leonardo Naranjo MD Memory loss or impairment (Primary Dx); Polyneuropathy; Bilateral carpa l tunnel syndrome 05/23/2019 Refill Neurology Leonardo Naranjo MD after 05/08/2019 Family History Medical History Relation Name Comments Heart disease Father Relation Name Status Comments Father Social History Tobacco Use Types Packs/Day Years Used Date Former Smoker 0.5 35 Quit: 2000 Smokeless Tobacco: Never Used Comments: quit Alcohol Use Drinks/Week oz/Week Comments Yes 12 Cans of beer 12.0 Sex Assigned at Date Recorded Not on file Last Filed Vital Signs Vital Sign Reading Time Taken Comments Blood Pressure 150/66 02/08/2020 10:56 AM CDT Pulse 66 02/08/2020 10:56 AM CDT Temperature 36.1 C (97 F) 06/14/2019 3:16 PM CDT Respiratory Rate 18 06/14/2019 4:15 PM CDT Oxygen Saturation 96% 06/14/2019 5:15 PM CDT Inhaled Oxygen Concentration - - Weight 116 kg (255 lb) 02/08/2020 10:56 AM CDT Height 180.3 cm (5' 11") 02/08/2020 10:56 AM CDT Body Mass Index 35.57 02/08/2020 10:56 AM CDT Plan of Treatment Date Type Specialty Care Team Description 07/23/2020 [place] [id number] [address] Health Maintenance Due Date Last Done Comments DIABETIC RETINAL EYE EXAM 1955 DIABETIC FOOT EXAM 11/15/1967 URINE MICROALBUMIN 11/15/1967 COLONOSCOPY SCREENING 11/15/2007 SHINGLES VACCINES (#1) 11/15/2007 INFLUENZA VACCINE 04/15/2020 05/10/2019, 05/29/2018 Implants Implanted Type Area Appraiser Device Shelf Model / Identifier Expiration Serial / Date Lot Device Vasclr Clsr Baln Cath 10ml Lkng Syr 5fr [employer] My nxgrip - [id number] Cardiovascular N/A: ACCESS CLOSURE 02/11/2021 [id number] / Implanted: 06/14/2019 at [facility] (Quantity not on file) Implants N/A INC / [id number] Description:bioabsorbable /non metalic Suture [place] Iconix 2.3mm - [id number] Orthopedic Right: DIXIE 08/27/2019 [id number] / Implanted: Qty: 2 on 07/13/2018 by Karlos Sherwood MD at [facility] Surgical Shoulder ENDOSCOPY DIV / Implants [id number] Suture [place] Reelx 4.5mm Knotless - [id number] Orthopedic Right: DIXIE 04/26/2020 [id number] / Implanted: Qty: 1 on 07/13/2018 by Karlos Sherwood MD at [facility] Surgical Shoulder ENDOSCOPY DIV / Implants [id number] Suture [place] Reelx 4.5mm Knotless - [id number] Orthopedic Right: DIXIE 04/26/2020 [id number] 600 [id number] / Implanted: Qty: 1 on 07/13/2018 by Karlos Sherwood MD at [facility] Surgical Shoulder ENDOSCOPY DIV / Implants [id number] Suture [place] Iconix 2.3mm - [id number] Orthopedic Right: DIXIE 08/26/2019 3910 500 [id number] / Implanted: Qty: 1 on 07/13/2018 by Karlos Sherwood MD at [facility] Surgical Shoulder ENDOSCOPY DIV / Implants [id number] Drill Bit Iconix 2.3mm Disp - [id number] Orthopedic Right: DIXIE 11/27/2019 3910 500 [id number] / Implanted: Qty: 1 on 07/13/2018 by Karlos Sherwood MD at [facility] Surgical Shoulder ENDOSCOPY DIV / Implants [id number] Suture [place] Reelx 4.5mm Knotless - [id number] Orthopedic Right: DIXIE 01/26/2020 3910 600 [id number] / Implanted: Qty: 1 on 07/13/2018 by Karlos Sherwood MD at [facility] Surgical Shoulder ENDOSCOPY DIV / Implants [id number] Suture [place] Reelx 4.5mm Knotless - [id number] Orthopedic Right: DIXIE 01/26/2020 3910 600 [id number] / Implanted: Qty: 1 on 07/13/2018 by Karlos Sherwood MD at [facility] Surgical Shoulder ENDOSCOPY DIV / Implants [id number] Stent Stent Procedures Procedure Name Priority Date/Time Associated Diagnosis Comme nts MRI LUMBAR SPINE WO Routine 03/13/2020 1:10 PM Hyper re flexia Results for this CONTRAST CDT Clonus procedure are i n the results section. MRI THORACIC SPINE Routine 03/13/2020 12:55 PM Hyper ref lexia Results for this WO CONTRAST CDT Clonus procedure are i n the results section. MRI CERVICAL SPINE Routine 03/13/2020 12:29 PM Hyper ref lexia Results for this WO CONTRAST CDT Clonus procedure are i n the results section. PET BRAIN METABOLIC Routine 03/13/2020 10:26 AM Memory loss or Results for this EVAL CDT impairment procedure are i n the results section. POC GLUCOSE Routine 03/13/2020 8:15 AM Results for this CDT procedure are i n the results section. POC GLUCOSE Routine 06/14/2019 1:53 PM Results for this CDT procedure are i n the results section. IR ABDOMINAL Routine 06/14/2019 1:39 PM Peripheral vascular R esults for this ARTERIAL CDT disease, unspecified procedu re are in ANGIOPLASTY/STENT (HCC) the result s PLACEMENT section. POC GLUCOSE Routine 06/14/2019 11:30 AM Results for this CDT procedure are i n the results section. after 05/08/2019 Results MRI Lumbar Spine Wo Contrast (03/13/2020 1:10 PM CDT) Specimen Narrative Performed At EXAMINATION: MRI LUMBAR SPINE WO CONTRAS T [facility] CLINICAL HISTORY: R29.2 Abnormal reflex, R25.8 Other a bnormal involuntary movements, hyper reflexia clonus COMPARISON: None TECHNIQUE: Multiplanar multisequence nonenhanced MRI e xamination was performed of the Lumbar spine. FINDINGS: Partial lumbarization of S1 with rudimentary disc at S1-S2. The most inferior fully formed disc will be label ed L5-S1. No fracture. No subluxation. No suspicious osseous l esions. Mild to moderate disc height loss with Schmorl's nodes and mar row edema at L5-S1. Conus medullaris terminates at the level of L2. Evaluation of the visualized soft tissues demonstrates no mass, adenopathy or aneurysm. Axial images through the disc spaces dem onstrate the following: L1-L2: No significant posterior disc disease, spinal c anal, subarticular zone, or neural foraminal stenosis. Disc desiccation. L2-L3: Mild facet arthropathy contributes to mild bila teral subarticular zone stenosis without significant spinal canal or neur al foraminal stenosis. Disc desiccation. L3-L4: Mild facet arthropathy contributes to mild bila teral subarticular zone stenosis without significant spinal canal or neur al foraminal stenosis. Disc desiccation. L4-L5: Moderate facet arthropathy with ligament flavum infolding and small disc bulge and endplate osteophytes contributes to mild bilateral neural foraminal stenosis as well as moderate to sever e bilateral subarticular zone stenosis, with contact and potential compression of the traversing L5 nerve roots , and mild spinal canal stenosis. L5-S1: Small disc bulge with superimposed small left p aracentral disc extrusion with minimal inferior migration, moderate le ft and mild right facet arthropathy with mild ligament flavum infolding contributes to severe left subocular zone stenosis with compression of the traversing left S1 nerve root, mild right and moderate left neural foraminal stenosis, with contact of the exiting left L5 nerve root with mild displacement without defi nite compression. No significant spinal canal or right subarticular zone stenosis. IMPRESSION: 1. Transitional lumbosacral anatomy with partial lumbarization of S1. 2. Multilevel degenerative changes of the lumbar spine , most notably at L4-5 and L5-S1 as detailed above. [id number] Procedure Note Hm Interface, Radiology Results Incoming - 03/13/2020 1:41 PM CDT EXAMINATION: MRI LUMBAR SPINE WO CONTRAST CLINICAL HISTORY: R29.2 Abnormal reflex, R25.8 Other abnormal involuntary movements, hyper reflexia clonus COMPARISON: None TECHNIQUE: Multiplanar multisequence non enhanced MRI examination was performed of the Lumbar spine. FINDINGS: Partial lumbarization of S1 with rudime ntary disc at S1-S2. The most inferior fully formed disc will be labeled L5-S1. No fracture. No subluxation. No suspici ous osseous lesions. Mild to moderate disc height loss with Schmorl's nodes and marrow edema at L5-S1. Conus medullaris terminates at the level of L2. Evaluation of the visualized soft tissue s demonstrates no mass, adenopathy or aneurysm. Axial images through the disc spaces dem onstrate the following: L1-L2: No significant posterior disc dis ease, spinal canal, subarticular zone, or neural foraminal stenosis. Disc desiccation. L2-L3: Mild facet arthropathy contribute s to mild bilateral subarticular zone stenosis without significant spinal canal or neural foraminal stenosis. Disc desiccation. L3-L4: Mild facet arthropathy contribute s to mild bilateral subarticular zone stenosis without significant spinal canal or neural foraminal stenosis. Disc desiccation. L4-L5: Moderate facet arthropathy with l igament flavum infolding and small disc bulge and endplate osteophytes contributes to mild bilateral neural foraminal stenosis as well as moderate to severe bilateral subarticular zone stenosis, with contact and potential compression of the traversing L5 nerve roots, and mild spinal canal stenosis. L5-S1: Small disc bulge with superimpose d small left paracentral disc extrusion with minimal inferior migration, moderate left and mild right facet arthropathy with mild ligament flavum infolding contributes to severe left subocular zone stenosis with compression of the traversing left S1 ne rve root, mild right and moderate left neural foraminal stenosis, with contact of the exiting left L5 nerve root with mild displacement without definite compression. No significant spinal canal or right subarticular zone stenosis. IMPRESSION: 1. Transitional lumbosacral anatomy with partial lumbarization of S1. 2. Multilevel degenerative changes of th e lumbar spine, most notably at L4-5 and L5-S1 as detailed above. [id number] Performing Organization Address City/State/ZIP Code Phon e Number [facility] [id number] [place] [address] MRI Thoracic Spine Wo Contrast (03/13/2020 12:55 PM CDT) Specimen Narrative Performed At EXAMINATION: MRI THORACIC SPINE WO CONTR AST [facility] CLINICAL HISTORY: R29.2 Abnormal reflex, R25.8 Other a bnormal involuntary movements, hyper reflexia clonus COMPARISON: None TECHNIQUE: Multiplanar multisequence noncontrast enhan jake examination was performed of the thoracic spine. FINDINGS: No vertebral fracture. Small disc bulges at T1-2, T2-3, T4-5, T7-8, and small cysts right paracentral disc protrusion at T8-9 without significan t spinal canal stenosis throughout the thoracic spine. There is conta ct of the ventral spinal cord at T8-9 without abnormal cor d signal and mild bilateral subarticular zone stenosis a t this level. There is mild bilateral subarticular zone stenosis at T1-T2, left T2-3, bilateral T4-5, and bilateral T9-10 and T10-11 seconda ry to facet and small endplate osteophytes. Disc desicca tion and mild degenerative endplate changes throughout the thoracic spine. There is mild left neural foraminal stenosis at T4-5 a nd mild right neural foraminal stenosis at T2-3 and T3-4 secondary t o facet and endplate osteophytes. No other significa nt neural foraminal stenosis. No abnormal spinal cord signal. Limited evaluation of the visualized intraperitoneal s oft tissues demonstrates no evidence of mass. No acu te abnormality. IMPRESSION: 1. Multilevel degenerative changes of the thoracic spi ne, with few levels of mild neural foraminal and suba rticular zone stenosis as above. [id number] Procedure Note Hm Interface, Radiology Results 03/13/2020 1:25 PM CDT EXAMINATION: MRI THORACIC SPINE WO CONTRAST CLINICAL HISTORY: R29.2 Abnormal reflex, R25.8 Other abnormal involuntary movements, hyper reflexia clonus COMPARISON: None TECHNIQUE: Multiplanar multisequence non contrast enhanced examination was performed of the thoracic spine. FINDINGS: No vertebral fracture. Small disc bulges at T1-2, T2-3, T4-5, T 7-8, and small cysts right paracentral disc protrusion at T8-9 without significant spinal canal stenosis throughout the thoracic spine. There is contact of the ventral spinal cord at T8-9 without abnormal cord signal and mild bilateral subarticular z one stenosis at this level. There is mild bilateral subarticular zone stenosis at T1-T2, left T2-3, bilateral T4-5, and bilateral T9-10 and T10-11 secondary to facet and small endplate osteophytes. Disc desicca tion and mild degenerative endplate changes throughout the thoracic spine. There is mild left neural foraminal sten osis at T4-5 and mild right neural foraminal stenosis at T2-3 and T3-4 secondary to facet and endplate osteophytes. No other significant neural foraminal stenosis. No abnormal spinal cord signal. Limited evaluation of the visualized int raperitoneal soft tissues demonstrates no evidence of mass. No acute abnormality. IMPRESSION: 1. Multilevel degenerative changes of th e thoracic spine, with few levels of mild neural foraminal and subarticular zone stenosis as above. [id number] Performing Organization Address City/State/ZIP Code Phon e Number [facility] [id number] [place] [address] MRI Cervical Spine Wo Contrast (03/13/2020 12:29 PM CDT) Specimen Narrative Performed At This result has an attachment that is no t available. Study:MRI CERVICAL SPINE WO CONTRAST [facility] History:R29.2 Abnormal reflex, R25.8 Oth er abnormal involuntary movements, hyper reflexia clonus COMPARISON:None TECHNIQUE: Multiplanar multisequence MR images of the cervical spine obtained without contrast. FINDINGS: There is some mild reversal of the cervi araceli lordosis likely due to degenerative changes described below. There are no subluxations. Vertebral body heights within normal limits. No acute marrow signal abnormality. C1/2: No canal stenosis. C2-3: Normal disc height without protr usion. No canal stenosis. Uncovertebral joint arthrosis and facet arthrosis present. Mild bilateral foraminal stenosis. C3-4: Normal disc height with a broad sh allow disc protrusion. Mild canal stenosis. Uncovertebral joint arthrosis and facet arthrosis present. Severe bilateral foraminal stenosis. C4-5:Mild disc height loss without disc protrusion. No canal stenosis. Uncovertebral joint arthrosis and facet arthrosis present. Severe right and moderate left foraminal stenosis. C5-6: Mild disc height loss with a broad shallow disc protrusion and moderate canal stenosis with an 8mm AP dimension. Uncovertebral joint arthrosis and facet arthrosis present. Moderate bilateral foraminal stenosis. C6-7: Moderate disc height loss with a b road shallow disc protrusion and mild canal stenosis. Uncovertebral joint arthrosis and facet arthrosis present. Moderate bilateral foraminal stenosis. C7/T1: Mild disc height loss without p rotrusion. No canal stenosis. No foraminal stenosis. The spinal cord is normal in signal and volume. The paravertebral soft tissues are unremarkable. IMPRESSION: Moderate canal stenosis at C5-6 from a broad shallow d isc protrusion. Significant foraminal stenosis from spon dylosis bilaterally at C3-4, C4-5, C5-6, and C6-7. No abnormal cord signal. [id number] Procedure Note Hm Interface, Radiology Results - 03/13/2020 1:13 PM CDT Study:MRI CERVICAL SPINE WO CONTRAST History:R29.2 Abnormal reflex, R25.8 Oth er abnormal involuntary movements, hyper reflexia clonus COMPARISON:None TECHNIQUE: Multiplanar multisequence MR images of the cervical spine obtained without contrast. FINDINGS: There is some mild reversal of the cervi araceli lordosis likely due to degenerative changes described below. There are no subluxations. Vertebral body heights within normal limits. No acute marrow signal abnormality. C1/2: No canal stenosis. C2-3: Normal disc height without protru emmy. No canal stenosis. Uncovertebral joint arthrosis and facet arthrosis present. Mild bilateral foraminal stenosis. C3-4: Normal disc height with a broad sh allow disc protrusion. Mild canal stenosis. Uncovertebral joint arthrosis and facet arthrosis present. Severe bilateral foraminal stenosis. C4-5:Mild disc height loss without disc protrusion. No canal stenosis. Uncovertebral joint arthrosis and facet arthrosis present. Severe right and moderate left foraminal stenosis. C5-6: Mild disc height loss with a broad shallow disc protrusion and moderate canal stenosis with an 8mm AP dimension. Uncovertebral joint arthrosis and facet arthrosis present. Moderate bilateral foraminal stenosis. C6-7: Moderate disc height loss with a b road shallow disc protrusion and mild canal stenosis. Uncovertebral joint arthrosis and facet arthrosis present. Moderate bilateral foraminal stenosis. C7/T1: Mild disc height loss without pr otrusion. No canal stenosis. No foraminal stenosis. The spinal cord is normal in signal and volume. The paravertebral soft tissues are unremarkable. IMPRESSION: Moderate canal stenosis at C5-[address] shallow disc protrusion. Significant foraminal stenosis from spon dylosis bilaterally at C3-4, C4-5, C5-6, and C6-7. No abnormal cord signal. [id number] Performing Organization Address City/State/ZIP Code Phon e Number [facility] [id number] [place] [address] PET Brain Metabolic Eval (03/13/2020 10:26 AM CDT) Specimen Narrative Performed At This result has an attachment that is no t available. PROCEDURE: PET BRAIN METABOLIC EVAL [facility] INDICATION: R41.3 Other amnesia, memory loss COMPARISON: MRI brain 03/21/2019 TECHNIQUE: Blood glucose measured at the time of injection was 134 mg/dL. The patient was injected IV with 10 mCi of 18F-FDG. Approximately one hour later, PET images of the brain were obtained. Corresp onding low dose CT scanning was performed as part of the attenuation correction process. FINDINGS: Matthews matter metabolism is pr eserved throughout the bilateral cerebral hemispheres. No regional hypometabolism is seen. Right temporal arachnoid cyst is noted. Subcortical structures demonstrate preserved metabolic activity. Cerebellar metabolism is within normal limits. IMPRESSION: No definitive metabolic evidence of a progressive neur odegenerative disorder. [id number] Procedure Note [facility], Radiology Results Incoming - 03/13/2020 11:33 AM CDT PROCEDURE: PET BRAIN METABOLIC EVAL INDICATION: R41.3 Other amnesia, memory loss COMPARISON: MRI brain 03/21/2019 TECHNIQUE: Blood glucose measured at the time of injection was 134 mg/dL. The patient was injected IV with 10 mCi of 18F-FDG. Approximately one hour later, PET images of the brain were obtained. Corresponding low dose CT scanning was performed as part of the attenuation correction process. FINDINGS: Matthews matter metabolism is pre served throughout the bilateral cerebral hemispheres. No regional hypometabolism is seen. Right temporal arachnoid cyst is noted. Subcortical structures demonstrate preserved metabolic activity. Cerebellar metabolism is within normal limits. IMPRESSION: No definitive metabolic evidence of a pr ogressive neurodegenerative disorder. [facility]-[id number] Performing Organization Address City/State/ZIP Code Phon e Number [facility] [id number] [place] [address] POC glucose (03/13/2020 8:15 AM CDT)Only the most recent of3 resultswithin the time period is included. Pathologist Sig nature POC glucose 134 (H) 65 - 99 mg/dL DANNY CONFUCIANIST Comment: [facility] Prosthetics Lab Technician Name: Bailey Pedersen Device ID: [id number] Chartable: No Action Needed Specimen Blood Performing Organization Address City/State/ZIP Code Phon e Number [facility] DEPARTMENT OF PATHOLOGY [id number] [place] [address] [facility] ELLI VARGAS [address] [facility] [place] [address] [facility] Abdominal Arterial Angioplasty/Stent Placement (06/14/2019 1:39 PM CDT) Specimen Narrative Performed At Performing Radiologist BAILEY Cardenas MD Assistants None Anesthesia Type Moderate sedation was administered by the procedure nu rse and monitored by the procedure physician for a total [id number] se dation time of approximately 61 minutes. Lidocaine 1% was also used f or local anesthetic. Pre Procedure Diagnosis Concern for lower extremity claudication . Post Procedure Diagnosis Status post arch aortogram and bilateral upper extremity arteriograms Procedure 1. Distal aortogram and pelvic arteriogr am 2. Right lower extremity arteriogram 3. Left lower extremity arteriogram 4. Right common femoral arteriogram Technique Written informed consent was obtained prior to the pro cedure. The patient was placed in a supine position and the right groin was sterilely prepared and draped in the routine manner. L idocaine 1% was used for local anesthetic. Using real-ti me ultrasound guidance, a 21-gauge micropuncture needle was used to access the right common femoral artery in a retrograde fashion. A 0.018 inch guidewire was advanced centrally through the needle under fluoro scopy. The needle was removed, and a micropuncture sheath system was then placed. The inner dilator and guidewir e were then removed, and a 0.035 inch J-wire was advanced through the micropuncture sheath and into the abdominal aorta under fluoroscopy. The micropuncture sheath was removed, and a 5-Eritrean vascu lar sheath was then placed. Although sonographic guidance was utilized and a single stick arterial puncture was performed, given the ultrasound machine, no sonographic image could be sent to PACS. A sheath was placed into the right common femoral artery. A right common femoral arteriogram was then performed with injection of contrast through the 5-Eritrean vascular sheath to evalu ate the arterial access into the right common femoral art malka. A 5-Eritrean pigtail catheter was advanced successfully into the distal abdominal aorta aorta. An aortogram and pelvic arterio gram was then performed with injection of contrast in the AP projection. Exchange then made for a 5 Eritrean sauce catheter, thro [facility] which a Glidewire was used to select the contralateral, left e xternal iliac artery. Next, the catheter was removed over a wire and a 5 Eritrean 65 cm Kumpe catheter was placed into the exter nal iliac artery. The Glidewire and Kumpe catheter were th en utilized to select the left superficial femoral artery. Contrast i njection (in this case 5 for 35) with step down lower extremity imaging sequences was performed. After adequate images were obtained, the catheter was removed. Stepdown right lower extremity imaging was performed v ia contrast injection through the right common femoral sheath. Aft er adequate imaging was obtained, the 5-Eritrean vascular sheath was removed the right common femoral artery, and a Mynx closur e device was used for hemostasis. The patient roge erated the procedure well. Findings Distal aorta: Patent. Right common iliac artery: Patent Right internal iliac artery: Visualized portions appear patent Right external iliac artery: Patent. Right common femoral artery: Scattered calcifications on common femoral arterial sheath run. Montgomery is noted to be above the bif urcation at the level of the common femoral head. No sig nificant stenosis. Right profunda artery: Visualized portio ns appear patent. Right superficial femoral artery: Occluded proximally. Visualized stent without opacification. Right femoropopliteal bypass: Appears pa tent. Right popliteal artery: Focal occlusion with collatera lization via the geniculate arteries as seen on series 10 image 308. Right tibioperoneal trunk: Patent. Right anterior tibial artery: Appears patent proximal without significant focal stenosis. Right posterior tibial artery: Appears patent proximal ly without significant focal stenosis. Right peroneal artery: Not visualized, l ikely occluded. Right posterior tibial artery (foot): Pa tchy flow within the foot Right dorsalis pedis artery: Patchy flow within the foot. Left common iliac artery: Patent Left internal iliac artery: Visualized p ortions appear patent Left external iliac artery: Patent. Note of a left ext ernal iliac/common femoral arteriovenous fistula as seen on series 3 image 304. Left common femoral artery: Mild associated stenosis a t the area of the fistula. Left profunda artery: Visualized portion s appear patent. Left superficial femoral artery: Multifocal narrowing, most prominent in the distal superficial femoral artery be st seen on series 5 image 304. Left popliteal artery: Mild multifocal d isease. Left tibioperoneal trunk: Multifocal qasim rowing. Left anterior tibial artery: Focal narrowing at the or igin of the anterior tibial artery. Otherwise appear s patent. Left posterior tibial artery: Occluded proximally with patchy flow and extensive collateralization. Left peroneal artery: Patent Left posterior tibial artery (foot): Not visualized. Left dorsalis pedis artery: Patchy flow. Radiation Dose Ka,r = 395 mGy Complications None Specimens Removed None Estimated Blood Loss Less than 1 mL Blood/Blood Products Administered None Grafts/Implants As described in the above report Impression: 1.Vascular arterial findings as describe d above. 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 There is two-vessel runoff to the right lower extremity. 4.Significant left lower extremity findings of multifo araceli narrowing of the superficial femoral artery with moderate narrowing distally, occlusion of the posterior tibial artery with minimal flow throughout, and two-vessel runoff to the distal left leg. 5.A right common femoral arteriogram demonstrates a no rmal-appearing right common femoral artery without stenosis or dissec tion. Access into the right common femoral was deemed appropriate for pl acement of a Mynx closure device, which was successfully deployed as described above. [facility]-[id number] Procedure Note Hm Interface, Radiology Results Incoming - 06/14/2019 7:31 PM CDT Performing Radiologist Akhil Cardenas MD Assistants None Anesthesia Type Moderate sedation was administered by e procedure nurse and monitored by the procedure physician for a total hqoc-eu-yixl sedation time of approximately 61 minutes. Lidocaine 1% was also used for local anesthetic. Pre Procedure Diagnosis Concern for lower extremity claudication . Post Procedure Diagnosis Status post arch aortogram and bilateral upper extremity arteriograms Procedure 1. Distal aortogram and pelvic arteriogr am 2. Right lower extremity arteriogram 3. Left lower extremity arteriogram 4. Right common femoral arteriogram Technique Written informed consent was obtained pr ior to the procedure. The patient was placed in a supine position and the right groin was sterilely prepared and draped in the routine manner. Lidocaine 1% was used for local anesthetic. Using real-time ultrasound guidance, a 21-gauge micropuncture needl e was used to access the right common femoral artery in a retrograde fashion. A 0.018 inch guidewire was advanced centrally through the needle under fluoroscopy. The needle was removed, and a micropuncture sheath system was then placed. The inner dilato r and guidewire were then removed, and a 0.035 inch J-wire was advanced through the micropuncture sheath and into the abdominal aorta under fluoroscopy. The micropuncture sheath was removed, and a 5-Eritrean vascular sheath was then placed. Although sonogr aphic guidance was utilized and a single stick arterial puncture was performed, given the ultrasound machine, no sonographic image could be sent to PACS. A sheath was placed into the right common femoral artery. A right common femoral arteriogram was t hen performed with injection of contrast through the 5-Eritrean vascular sheath to evaluate the arterial access into the right common femoral artery. A 5-Eritrean pigtail catheter was advanced successfully into the distal abdominal aorta aorta. An aortogram and pelvic arteriogram was then performed with injection of contrast in the AP projection. Exchange then made for a 5 Eritrean sauce catheter, through which a Glidewire was used to select the contralateral, left external iliac artery. Next, the catheter was removed over a wire and a 5 Eritrean 65 cm Kumpe catheter was placed into the external iliac artery. The Glidewire and Kumpe ca theter were then utilized to select the left superficial femoral artery. Contrast injection (in this case 5 for 35) with step down lower extremity imaging sequences was performed. After adequate images were obtained, the catheter was removed. Stepdown right lower extremity imaging w as performed via contrast injection through the right common femoral sheath. After adequate imaging was obtained, the 5-Eritrean vascular sheath was removed the right common femoral artery, and a Mynx closure devic e was used for hemostasis. The patient roge erated the procedure well. Findings Distal aorta: Patent. Right common iliac artery: Patent Right internal iliac artery: Visualized portions appear patent Right external iliac artery: Patent. Right common femoral artery: Scattered c alcifications on common femoral arterial sheath run. Montgomery is noted to be above the bifurcation at the level of the common femoral head. No significant stenosis. Right profunda artery: Visualized portio ns appear patent. Right superficial femoral artery: Occlud ed proximally. Visualized stent without opacification. Right femoropopliteal bypass: Appears pa tent. Right popliteal artery: Focal occlusion with collateralization via the geniculate arteries as seen on series 10 image 308. Right tibioperoneal trunk: Patent. Right anterior tibial artery: Appears pa tent proximal without significant focal stenosis. Right posterior tibial artery: Appears p atent proximally without significant focal stenosis. Right peroneal artery: Not visualized, l ikely occluded. Right posterior tibial artery (foot): Pa tchy flow within the foot Right dorsalis pedis artery: Patchy flow within the foot. Left common iliac artery: Patent Left internal iliac artery: Visualized p ortions appear patent Left external iliac artery: Patent. Note of a left external iliac/common femoral arteriovenous fistula as seen on series 3 image 304. Left common femoral artery: Mild associa blanca stenosis at the area of the fistula. Left profunda artery: Visualized portion s appear patent. Left superficial femoral artery: Multifo araceli narrowing, most prominent in the distal superficial femoral artery best seen on series 5 image 304. Left popliteal artery: Mild multifocal d isease. Left tibioperoneal trunk: Multifocal qasim rowing. Left anterior tibial artery: Focal narro wing at the origin of the anterior tibial artery. Otherwise appears patent. Left posterior tibial artery: Occluded p roximally with patchy flow and extensive collateralization. Left peroneal artery: Patent Left posterior tibial artery (foot): Not visualized. Left dorsalis pedis artery: Patchy flow. Radiation Dose Ka,r = 395 mGy Complications None Specimens Removed None Estimated Blood Loss Less than 1 mL Blood/Blood Products Administered None Grafts/Implants As described in the above report Impression: 1.Vascular arterial findings as describe d above. 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 3.Significant right lower extremity find ings of focal, near total occlusion of the right popliteal artery with collateralization through geniculate arteries. There is two-vessel runoff to the right lower extremity. 4.Significant left lower extremity findi ngs of multifocal narrowing of the superficial femoral artery with moderate narrowing distally, occlusion of the posterior tibial artery with minimal flow throughout, and two-vessel runoff to the distal left leg. 5.A right common femoral arteriogram dem onstrates a normal-appearing right common femoral artery without stenosis or dissection. Access into the right common femoral was deemed appropriate for placement of a Mynx closure device, which was successfully deployed as described above. 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
--- OUTSIDE RECORDS SUMMARY | 2020-05-08 06:41 | XMS REPORT | Continuity of Care Document ---
:1955 Author Organization [facility] t Address [address] [place] [address] Care Team Providers Name Role Phone Kaykay WHITNEY Elvi Primary Care Physician Jose A WILLS Attending Clinician Chioma DELGADO Attending Clinician Unavailable Mayo WILLS Attending Clinician Mayo WILLS Attending Clinician Payers Payer Name Policy Type Policy Effective Date Expiration Date Sour ce Number [employer] IN [id number] 2017 [facility] AREA/O BLUE 0 00:00:00 [facility] [id number] 2017-PresentHMO Problems Condition Condition Condition Status Onset Resolution Last Treating Co mments Source Name Details Category Date Date Treatment Clinician Date Memory Memory Problem Active [facility] Tremor Tremor Problem [facility] Peripheral Peripheral Problem Active [facility] vascular vascular [facility] disease disease [facility] Pain in Pain in Problem Active [facility] right hip right hip [facility] Hyperlipid Hyperlipid Problem Active [facility] emia emia [facility] Pain in Pain in Problem Active [facility] left hip left hip [facility] Unspecifie Unspecifie Problem Active [facility] - atheroscle atheroscle Me moria rosis of rosis of l andreafski andreafski Outpati arteries arteries ent of [facility] s, s, unspecifie unspecifie d d extremity extremity Type 2 Type [address] [facility] diabetes diabetes [facility] - mellitus mellitus Memori a with with l diabetic diabetic Outpat i peripheral peripheral en t angiopathy angiopathy Cl inics without without gangrene gangrene Allergic Allergic Problem Active [facility] Depression Depression Problem Active [facility] with with [facility] anxiety anxiety [facility] Clinics Diabetic Diabetic Problem Active [facility] mononeurop mononeurop Chelle kes - athy athy Memoria associated associated l with type with type Outp ati 2 diabetes 2 diabetes en t mellitus mellitus Clinic s Stented Stented Problem Active [facility] coronary coronary [facility] artery artery [facility] HTN HTN Problem Active [facility] (hypertens (hypertens Chelle kes - ion) ion) [facility] Obesity Obesity Problem Active [facility] Diabetes Diabetes Problem Active [facility] CAD CAD Problem Active [facility] (coronary (coronary Luke s - artery artery Memoria disease) disease) l [facility] Multiple Multiple Problem Active [facility] joint pain joint pain Chelle kes - [facility]oria [facility] Clin[facility] Lower Lower Problem Active [facility] extremity extremity Luke s - edema edema Memoria l [facility] PUD PUD Problem Active [facility] (peptic (peptic [facility] - ulcer ulcer Memoria disease) disease) l [facility] Allergies, Adverse Reactions, Alerts Allergy Allergy Status Severity Reaction(s) Onset Inactive Treating Comm ents Source Name Type Date Date Clinician Cipchula Carlsonensi Active Other (See gavin estrada ty to Comments) 03-07 tion Methodi adverse 00:00: st reaction 00 s to drug Latex Propensi Active Rash Fritz ty to 03-07 Methodi adverse 00:00: st reaction 00 s to drug Morphine Propensi Active Other (See Gavin Fritz ty to Comments) 03-07 tion Methodi adverse 00:00: st reaction 00 s to drug Lyrica Adverse Active Info Not [facility] Reaction Available [facility] Cipro Adverse Active Info Not [facility] Reaction Available Troy hubbard [facility] Family History Family Member Diagnosis Comments Start Date Stop Date Source Natural father Heart disease [place] [facility] Social History Social Habit Start Date Stop Date Quantity Comments Source History of tobacco Current smoker Fox davalos [facility] use Sex Assigned At [facility] ethodist Cigarettes smoked 2020-02-08 2020-02-08 [place] [facility] current (pack per 00:00:00 00:00:00 day) - Reported Cigarette 2020-02-08 2020-02-08 [place] Method ist pack-years 00:00:00 00:00:00 Tobacco use and 2020-02-08 2020-02-08 Never used [facility] ethodist exposure 00:00:00 00:00:00 Alcohol intake 2020-02-08 2020-02-08 Current drinker [place] [facility] 00:00:00 00:00:00 of alcohol (finding) Tobacco Comment 2017-03-07 2017-03-07 quit [facility] ethodist 00:00:00 00:00:00 Smoking Status Start Date Stop Date Source Former smoker 2020-02-08 00:00:00 2020-02-08 00:00:00 [place] [facility] Medications Ordered Filled Start Stop Current Ordering Indication Dosage Frequency Signature Comments Components Source Medication Medication Date Date Medication? Clinician (SIG) Name Name ibuprofen Yes 600mg Q6H Take 600 [address] (ADVIL) 600 6-26 mg by Methodi MG tablet 10:58: mouth st 03 every 6 (six) hours as needed. diazePAM 2019- No 5mg Q6H Take 5 mg Rito st[place] (VALIUM) 5 6-07 02- by mouth Meth messi MG tablet 10:58: 00:[address] 03 :00 (six) hours as needed. DULoxetine 0 Yes Paresthesia Take 2 Fritz (Cymbalta) 6-26 tabs at Method i 30 MG 00:00: night x 1 st capsule 00 month, then increase to 3 tabs at night and continue DULoxetine 2019-0 2020- No Paresthesia 30mg QD Take 1 Fritz (Cymbalta) 4-02 02- capsule Metho di 30 MG 00:00: 00:00 ([address] capsule 00 :00 total) by mouth daily. folic 0 Yes Bilateral 1{tbl} QD Take 1 Rito ston acid-vit 2-12 carpal tablet by Meth messi B6-vit B12 00:00: tunnel mouth st (FOLBEE) 00 syndrome daily. 2.5-25-1 mg tablet memantine 2020- No Memory loss 10mg Q.5D Take 1 Lam (NAMENDA) -11 or tablet (10 Met hodi 10 MG 00:00: 23:59 impairment mg total) st tablet 00 :00 by mouth 2 (two) times a day. DULoxetine 2019- No Paresthesia 30mg QD Take 1 Lam (CYMBALTA) 09-26-21 capsule Metho di 30 MG 00:00: 00:00 ([address] capsule 00 :00 total) by mouth daily. memantine 2019- No Memory loss Wk 1: 5 mg Fritz (NAMENDA) 5 09-26 04-17 or at night Met hodi MG tablet 00:00: 00:00 impairment W2: [address] 00 :00 twice daily W3:10 mg am 5 mg night glyburide-m 2018-08 Yes 2{tbl} Q.5D Take 2 [place] etformin 0-31 tablets by Metho di (GLUCOVANCE 15:24: mouth 2 st ) 5-500 mg 28 (two) per tablet times a day with meals. dulaglutide 2018-08 Yes .75mg Q1W Inject Rito ston (TRULICITY) 0-31 0.75 mg Metho di 0.75 mg/0.5 15:24: under the s t mL pen 28 skin every injector 7 days. sundays INSULIN 2018-08 Yes 15U [id number] Inject 15 Fritz LISPRO 0-31 [id number] Units Method i (HUMALOG 15:24: 3D under the st SUBQ) 28 skin 3 (three) times a day. losartan 2018-08 Yes 100mg QD Take 100 [place] (COZAAR) 0-31 mg by Methodi 100 MG 15:24: mouth st tablet 28 every morning. nebivolol 2018-08 Yes 10mg QD Take 10 mg [place] (BYSTOLIC) 0-31 by mouth Metho di 10 MG 15:24: every st tablet 28 evening. CLOPIDOGREL 2018-08 Yes 75mg QD Take 75 mg Fritz BISULFATE 0-31 by mouth Method i (CLOPIDOGRE 15:24: daily. st L ORAL) 28 rosuvastati 2018-08 Yes 10mg QD Take 10 mg Fritz n (CRESTOR) 0-31 by mouth Meth messi 10 MG 15:24: nightly. st tablet 28 cetirizine 2018-08 Yes 10mg QD Take 10 mg [place] (ZyrTEC) 10 0-31 by mouth Meth messi MG tablet 15:24: nightly. st 28 aspirin 2018-08 Yes 81mg QD Take 81 mg [place] (ECOTRIN) 0-31 by mouth Method i 81 MG 15:24: nightly. st enteric 28 coated tablet insulin 2018-08 Yes 40U QD Inject 40 [place] GLARGINE 0-31 Units Methodi (LANTUS) 15:24: under the st 100 unit/mL 28 skin injection nightly. (vial) UNABLE TO 2018-08 Yes [place] FIND 0-31 OTC - 1 PO Methodi 15:24: QHS st 28 ascorbic 2018-08 Yes 1000mg QD Take 1,000 [place] acid, 0-31 mg by Methodi vitamin C, 15:24: mouth st (vitamin C) 28 daily. 1000 MG tablet vitamin E 2018-08 Yes 400U QD Take 400 [place] 400 UNIT 0-31 Units by Methodi capsule 15:24: mouth st 28 daily. donepezil 2018-08- No Memory loss 5mg QD Take 1 Fritz (ARICEPT) 5 0-18 02-12 or tablet (5 Me thodi MG tablet 00:00: 00:00 impairment mg total) st 00 :00 by mouth nightly. donepezil 2018-08- No Memory loss 10mg QD Take 1 Fritz (ARICEPT) 0-18 02-12 or tablet (10 Met hodi 10 MG 00:00: 00:00 impairment mg total) st tablet 00 :00 by mouth nightly. donepezil 2018-08- No Memory loss 10mg QD Take 1 Fritz (ARICEPT) 0-18 10-18 or tablet (10 Met hodi 10 MG 00:00: 00:00 impairment mg total) st tablet 00 :00 by mouth nightly. cyanocobala 2018-08- No INJECT 1 [place] min 1,000 0-09 10-18 ML BY Methodi mcg/mL 00:00: 00:[address] injection 00 :00 A WEEK FOR 4 WEEKS hydroCHLORO Yes 25mg QD Take 25 mg [place] thiazide 05-10 by mouth Methodi (HYDRODIURI 00:00: every st L) 25 MG 00 morning. tablet cyanocobala 2018- No 1000mcg q Fritz min 1,000 8-14 10-09 d x 7days; Met hodi mcg/mL 00:00: 00:[address] injection 00 :00 weekly x 4wks; 1000 mcg q month x 12 months (include needles and syringes) pantoprazol 2019- No 40mg Q.5D Take 40 mg Fritz e 809-26 by mouth 2 Methodi (PROTONIX) 00:00: 00:00 (two) st 40 MG EC 00 :00 times a tablet day. amLODIPine No Sethto n (NORVASC) 5 02-1218 Methodi mg tablet 00:00: 00:00 st 00 :00 Crestor Crestor Yes Na Mccracken TAKE [address] TABLET BY [facility] - MOUTH ONCE Memoria A DAY l [facility] Immunizations Ordered Filled Immunization Date Status Comments Sour e Immunization Name Name Jackeline Viveros 2019-05-[address] [facility] Vital Signs Vital Name Observation Time Observation Value Comments Source Systolic blood 2020-02-08 10:56:00 150 mm[Hg] Yarit[place] n [facility] pressure Diastolic blood 2020-02-08 10:56:00 66 mm[Hg] [place] [facility] pressure Heart rate 2020-02-08 10:56:00 66 /min Lam Garcia Body height 2020-02-08 10:56:00 180.3 cm Lam Garcia Body weight 2020-02-08 10:56:00 115.667 kg Lam Garcia BMI 2020-02-08 10:56:00 35.57 kg/m2 Lam Garcia Oxygen saturation in 2019-06-14 17:15:00 96 /min Lam Garcia Arterial blood by Pulse oximetry Respiratory rate 2019-06-14 16:15:00 18 /min [place] [facility] Body temperature 2019-06-14 15:16:00 36.11 Penny [place] [facility] Procedures Procedure Date / Time Performed Performing Clinician Sour e MRI LUMBAR SPINE WO 2020-03-13 13:10:54 Jose ABronwyn Lam [facility] CONTRAST MRI THORACIC SPINE WO 2020-03-13 12:55:16 Jose AChanicarol maravilla [facility] CONTRAST MRI CERVICAL SPINE WO 2020-03-13 12:29:12 Bronwyn Aguirre [facility] CONTRAST PET BRAIN METABOLIC EVAL 2020-03-13 10:26:19 PonchoBronwyn lu Rito ston [facility] POC GLUCOSE 2020-03-13 08:15:00 Jose AChanicarol Fritz Meth odist POC GLUCOSE 2019-06-14 13:53:00 Troy Huber Meth odist IR ABDOMINAL ARTERIAL 2019-06-14 13:39:00 Troy Huber [facility] ANGIOPLASTY/STENT PLACEMENT POC GLUCOSE 2019-06-14 11:30:00 Troy Huber Meth odist Plan of Care Planned Activity Planned Date Details Comments Source Future Scheduled 2020-04-15 INFLUENZA VACCINE [place] [facility] Test 00:00:00 [code = INFLUENZA VACCINE] Future Scheduled 2007-11-15 COLONOSCOPY SCREENING [place] [facility] Test 00:00:00 [code = COLONOSCOPY SCREENING] Future Scheduled 2007-11-15 SHINGLES VACCINES (#1) [place] [facility] Test 00:00:00 [code = SHINGLES VACCINES (#1)] Future Scheduled 1967-11-15 DIABETIC FOOT EXAM [place] [facility] Test 00:00:00 [code = DIABETIC FOOT EXAM] Future Scheduled 1967-11-15 URINE MICROALBUMIN [place] [facility] Test 00:00:00 [code = URINE MICROALBUMIN] Future Scheduled 1955 DIABETIC RETINAL EYE Rito ston [facility] Test 00:00:00 EXAM [code = DIABETIC RETINAL EYE EXAM] Encounters Start End Encounter Admission Attending Care Care Encounter Source Date/Time Date/Time Type Type Clinicians Facility Department ID 2020-04-22 2020-04-22 Outpatient BRONWYN AGUIRRE [facility] [id number] [place] 00:00:00 00:00:[address] 2020-03-13 2020-03-13 Outpatient CHANI AGUIRREY [facility] [id number] [place] 00:00:00 00:00:[address] 2020-03-13 2020-03-13 Outpatient PONCHOBRONWYN LU [facility] [id number] [place] 00:00:00 00:00:[address] 2020-03-13 2020-03-13 Outpatient BRONWYN AGUIRRE [facility] [id number] [place] 00:00:00 00:00:[address] 2020-03-13 2020-03-13 Outpatient BRONWYN AGUIRRE [facility] [id number] [place] 00:00:00 00:00:[address] 2020-02-25 2020-02-25 [facility] [id number] 10:06:00 10:06:00 [place] [employer] [facility] Medicine Outpati ent Clinics 2020-02-08 2020-02-08 Outpatient BRONWYN AGUIRRE [facility] [id number] [place] 00:00:00 00:00:[address] 2020-01-31 2020-01-31 [facility] [id number] 16:12:00 16:12:00 t [facility] s [facility] l Medicine Outpati ent Clinics 2020-01-24 2020-01-24 [facility] [id number] 14:27:00 14:27:00 [place] [employer] - [employer] [facility] Medicine l Medicine Outpati ent Clinics 2020-01-14 2020-01-14 [facility] [id number] 09:43:00 09:43:00 t [employer] s - Drive [facility] Medicine l Medicine Outpati ent Clinics 2019-12-06 2019-12-06 [facility] [id number] 10:24:00 10:24:00 [place] [employer] s - Drive [facility] Medicine l Medicine Outpati ent Clinics 2019-12-04 2019-12-04 Outpatient BRONWYN AGUIRRE [facility] [id number] [place] 00:00:00 00:00:[address] 2019-11-26 2019-11-26 [facility] [id number] [facility] 11:11:00 11:11:00 [place] [employer] s - Drive [facility] l Medicine Outpati ent Clinics 2019-11-16 2019-11-16 [facility] [id number] 08:40:00 08:40:[address] Luke s - [address] [facility] Medicine l Medicine Outpati ent Clinics 2019-10-18 2019-10-18 [facility] [id number] 14:21:00 14:21:[address] Luke s - Drive [facility] Medicine l Medicine Outpati ent Clinics 2019-08-16 2019-08-16 [facility] [id number] 08:00:00 08:00:[address] Luke [address] - Drive [facility] Medicine l Medicine Outpati ent Clinics 2019-06-14 2019-06-14 Outpatient ATTAR, [facility] [id number] [place] [address] 00:00:00 00:00:00 [facility] 2019-05-28 2019-05-28 [facility] [id number] 16:12:00 16:12:00 [place] [employer] Luke s - Drive [facility] Medicine Outpati ent Clinics 2019-05-10 2019-05-10 [facility] [id number] 15:12:00 15:12:00 [place] [employer] Luke s - Drive [facility] Medicine l Medicine Outpati ent Clinics 2019-05-10 2019-05-10 [facility] [id number] 08:20:00 08:20:00 [place] [employer] Luke s - Drive [facility] Medicine l Medicine Outpati ent Clinics 2019-05-04 2019-05-04 [facility] [id number] 11:30:00 23:59:00 Encounter Troy Toscano [id number] [place] [id number] [place] [id number] 2019-04-26 2019-04-26 [facility] [id number] 10:03:00 10:03:[address] Luke [address] - Drive [facility] Medicine l Medicine Outpati ent Clinics 2019-02-05 2019-02-05 [facility] [id number] 13:55:00 13:55:00 [place] [employer] Luke s - Drive [facility] Medicine l Medicine Outpati ent Clinics 2019-02-05 2019-02-05 [facility] [id number] 09:40:00 09:40:00 [place] [employer] Luke s - Drive [facility] l Medicine Outpati ent Clinics 2018-12-15 2018-12-15 [facility] [id number] 14:33:00 14:33:00 [place] [employer] Lu[employer]aseya s - Drive [facility] Medicine Outpati ent Clinics 2018-12-06 2018-12-06 [facility] [id number] 08:45:00 08:45:00 [place] [employer] LuKaseya s - Drive [facility] Medicine Outpati ent Clinics 2018-12-06 2018-12-06 [facility] [id number] 08:23:00 08:23:00 [place] [employer] s - Drive [facility] Medicine Outpati ent Clinics 2018-11-22 2018-11-22 [facility] [id number] 09:23:00 09:23:00 [place] [employer] s - Drive [facility] Medicine Medicine Outpati ent Clinics 2018-11-21 2018-11-21 [facility] [id number] 10:16:00 10:16:00 [place] [employer] s - Drive [facility] Medicine Outpati ent Clinics 2018-11-10 2018-11-10 [facility] [id number] 08:15:00 08:15:00 [place] [employer] s - Drive [facility] Medicine Outpati ent Clinics 2018-09-21 2018-09-21 [facility] [id number] 15:00:00 15:00:00 [place] [employer] s - Drive [facility] Medicine Outpati ent Clinics 2018-08-29 2018-08-29 [facility] [id number] 15:57:00 15:57:00 [place] [employer] s - Drive [facility] l Medicine Outpati ent Clinics 2018-08-11 2018-08-11 [facility] [id number] 08:30:00 08:30:[address] Luke s - Drive [facility] Medicine Outpati ent Clinics 2018-05-08 2018-05-08 [facility] [id number] 11:56:00 11:56:00 [place] [employer] Luke s - Drive [facility] Medicine Outpati ent Clinics 2018-05-04 2018-05-04 [facility] [id number] 10:17:00 10:17:00 [place] [employer] Luke s - Drive [facility] Medicine Outpati ent Clinics 2018-04-28 2018-04-28 [facility] [id number] 09:45:00 09:45:00 [place] [employer] s - Drive [facility] Medicine Outpati ent Clinics 2018-03-15 2018-03-15 [facility] [id number] 09:11:00 09:11:00 [place] [employer] s - Drive [facility] Medicine Outpati ent Clinics 2018-02-14 2018-02-14 [facility] [id number] 08:46:00 08:46:00 [place] [employer] s - Drive [facility] Medicine Outpati ent Clinics 2018-01-27 2018-01-27 [facility] [id number] 08:15:00 08:15:00 t [employer] s - Drive [facility] Medicine Outpati ent Clinics Results Test Description Test Time Test Comments Results Result Sour e Comments MRI Lumbar Spine 2020-02-15 Hm Interface, Setht on Wo Contrast 0 Radiology Results Method ist 13:38:17 03/13/2020 1:41 PM CDTEXAMINATION: MRI LUMBAR SPINE WO CONTRASTCLINICAL HISTORY: R29.2 Abnormal reflex, R25.8 Other abnormal involuntary movements, hyper reflexia clonusCOMPARISON: NoneTECHNIQUE: Multiplanar multisequence nonenhanced MRI examination was performed of the Lumbar spine.FINDINGS: Partial lumbarization of S1 with rudimentary disc at S1-S2. The most inferior fully formed disc will be labeled L5-S1.No fracture. No subluxation. No suspicious osseous lesions. Mild to moderate disc height loss with Schmorl's nodes and marrow edema at L5-S1. Conus medullaris terminates at the level of L2.Evaluation of the visualized soft tissues demonstrates no mass, adenopathy or aneurysm. Axial images through the disc spaces demonstrate the following:L1-L2: No significant posterior disc disease, spinal canal, subarticular zone, or neural foraminal stenosis. Disc desiccation.L2-L3: Mild facet arthropathy contributes to mild bilateral subarticular zone stenosis without significant spinal canal or neural foraminal stenosis. Disc desiccation.L3-L4: Mild facet arthropathy contributes to mild bilateral subarticular zone stenosis without significant spinal canal or neural foraminal stenosis. Disc desiccation.L4-L5: Moderate facet arthropathy with ligament flavum infolding and small disc bulge and endplate osteophytes contributes to mild bilateral neural foraminal stenosis as well as moderate to severe bilateral subarticular zone stenosis, with contact and potential compression of the traversing L5 nerve roots, and mild spinal canal stenosis.L5-S1: Small disc bulge with superimposed small left paracentral disc extrusion with minimal [...] significant spinal canal or right subarticular zone stenosis.IMPRESSION: 1. Transitional lumbosacral anatomy with partial lumbarization of S1.2. Multilevel degenerative changes of the lumbar spine, most notably at L4-5 and L5-S1 as detailed above.[id number] MRI Thoracic 2020-02-15 [facility] Spine Wo [address] Contrast 13:22:04 - 03/13/2020 1:25 PM CDTEXAMINATION: MRI THORACIC SPINE WO CONTRASTCLINICAL HISTORY: R29.2 Abnormal reflex, R25.8 Other abnormal involuntary movements, hyper reflexia clonusCOMPARISON: NoneTECHNIQUE: Multiplanar multisequence noncontrast enhanced examination was performed of the thoracic spine.FINDINGS:No vertebral fracture. Small disc bulges at T1-2, T2-3, T4-5, T7-8, and small cysts right paracentral disc protrusion at T8-9 without significant spinal canal stenosis throughout the thoracic spine. There is contact of the ventral spinal cord at T8-9 without abnormal cord signal and mild bilateral subarticular zone stenosis at this level. There is mild bilateral subarticular zone stenosis at T1-T2, left T2-3, bilateral T4-5, and bilateral T9-10 and T10-11 secondary to facet and small endplate osteophytes. Disc desiccation and mild degenerative endplate changes throughout the thoracic spine.There is mild left neural foraminal stenosis at T4-5 and mild right neural foraminal stenosis at T2-3 and T3-4 secondary to facet and endplate osteophytes. No other significant neural foraminal stenosis.No abnormal spinal cord signal. Limited evaluation of the visualized intraperitoneal soft tissues demonstrates no evidence of mass. No acute abnormality.IMPRESSION : 1. Multilevel degenerative changes of the thoracic spine, with few levels of mild neural foraminal and subarticular zone stenosis as above.[id number] MRI Cervical 2020-02-15 [facility], [place] Spine Wo [address] Contrast 13:10:36 - 03/13/2020 1:13 PM CDTStudy:MRI CERVICAL SPINE WO CONTRASTHistory:R29.2 Abnormal reflex, R25.8 Other abnormal involuntary movements, hyper reflexia clonusCOMPARISON:NoneT ECHNIQUE: Multiplanar multisequence MR images of the cervical spine obtained without contrast.FINDINGS:Ther e is some mild reversal of the cervical lordosis likely due to degenerative changes described below. There are no subluxations. Vertebral body heights within normal limits. No acute marrow signal abnormality.C1/2: No canal stenosis.C2-3: Normal disc height without protrusion. No canal stenosis. Uncovertebral joint arthrosis and facet arthrosis present. Mild bilateral foraminal stenosis.C3-4: Normal disc height with a broad shallow disc protrusion. Mild canal stenosis. Uncovertebral joint arthrosis and facet arthrosis present. Severe bilateral foraminal stenosis.C4-5:Mild disc height loss without disc protrusion. No canal stenosis. Uncovertebral joint arthrosis and facet arthrosis present. Severe right and moderate left foraminal stenosis.C5-6: Mild disc height loss with a broad shallow disc protrusion and moderate canal stenosis with an 8mm AP dimension. Uncovertebral joint arthrosis and facet arthrosis present. Moderate bilateral foraminal stenosis.C6-7: Moderate disc height loss with a broad shallow disc protrusion and mild canal stenosis. Uncovertebral joint arthrosis and facet arthrosis present. Moderate bilateral foraminal stenosis.C7/T1: Mild disc height loss without protrusion. No canal stenosis. No foraminal stenosis.The spinal cord is normal in signal and volume. The paravertebral soft tissues are unremarkable.IMPRESSIO N:Moderate canal stenosis at C5-6 from a broad shallow disc protrusion.Significant foraminal stenosis from spondylosis bilaterally at C3-4, C4-5, C5-6, and C6-7.No abnormal cord signal.[facility]-[id number] PET Brain 2020-02-15 [facility] [place] Metabolic Eval 0 Radiology Results Met hodist 11:31:52 - 03/13/2020 11:33 AM CDTPROCEDURE: PET BRAIN METABOLIC EVALINDICATION: R41.3 Other amnesia, memory lossCOMPARISON: MRI brain 03/21/2019 TECHNIQUE: Blood glucose measured at the time of injection was 134 mg/dL. The patient was injected IV with 10 mCi of 18F-FDG. Approximately one hour later, PET images of the brain were obtained. Corresponding low dose CT scanning was performed as part of the attenuation correction process. FINDINGS: Matthews matter metabolism is preserved throughout the bilateral cerebral hemispheres. No regional hypometabolism is seen. Right temporal arachnoid cyst is noted. Subcortical structures demonstrate preserved metabolic activity. Cerebellar metabolism is within normal limits. IMPRESSION: No definitive metabolic evidence of a progressive neurodegenerative disorder.[facility]-[id number] K POC glucose 2020-03-13 08:16:33 Test Item Value Reference Range Interpretation Comme [facility] POC glucose (test code = 134 mg/dL 65-99 H Ope rator Name: Bailey Navarrete ID: [id number]) [id number] able: No Action Needed Lab Interpretation (test code = Abnormal 08595-8) [facility] Abdominal Arterial Angioplasty/Stent [id number] 19:28:24Hm Interface, Radiology Results - 06/14/2019 7:31 PM CDTPerforming RadiologistAkhil Cardenas MD AssistantsNone Anesthesia TypeModerate sedation was administered by the procedure nurse and monitored by the procedure physician for a total pcjk-qv-eldj sedation time of approximately 61 minutes. L idocaine 1% was also used for local anesthetic. Pre Procedure DiagnosisConcern for lower extremity claudication. Post Procedure DiagnosisStatus post arch aortogram and bilateral upper extremity arteriograms Procedure1. Distal aortogram and pelvic arteriogram2. Right lower extremity arteriogram3. Left l ower extremity arteriogram4. Right common femoral arteriogramTechniqueWritten informed consent was obtained prior to the procedure. The patient was placed in a supine position and the right groin was sterilely prepared and draped in the routine manner. Lidocaine 1% was used for local anesthetic. Usingreal-time ultrasound guidance, a 21-gauge micropuncture needle was used to access the right common femoral artery in a retrograde fashion. A 0.018 inch guidewire was advanced centrally through the needle under fluoroscopy. The needle was removed, and a micropuncture sheath system was then placed. The inner dilator and guidewire were then removed, and a 0.035 inch J-wire was advanced through the micropuncture sheath and into the abdominal aorta under fluoroscopy. The micropuncture sheath was removed,and a 5-Burundian vascular sheath was then placed. Although sonographic guidance was utilized and a single stick arterial puncture was performed, given the ultrasound machine, no sonographic image could be sent to PACS. A sheath was placed into the right common femoral artery. A right common femoral arteriogram was then performed with injection of contrast through the 5-Burundian vascular sheath to evaluate the arterial access into the right common femoral artery. A 5-Burundian pigtail catheter was advanced successfully into the distal abdominal aorta aorta. An aortogram and pelvic arteriogram was then performed with injection of contrast in the AP projection. Exchange then made for a 5 Burundian sauce catheter, through which a Glidewire was used to select the contralateral, left external iliac artery. Next,the catheter was removed over a wire and a 5 Burundian 65 cm Kumpe catheter was placed into the external iliac artery. The Glidewire and Kumpe catheter were then utilized to select the left superficial femoral artery. Contrast injection (in this case 5 for 35) with step down lower extremity imaging sequences was performed. After adequate images were obtained, the catheter was removed.Stepdown right lower extremity imaging was performed via contrast injection through the right common femoral sheath. After adequate imaging was obtained, the 5-Burundian vascular sheath was removed the right common femoral artery, and a Mynx closure device was used for hemostasis. The patient tolerated the procedure well.FindingsDistal aorta: Patent.Right common iliac artery: PatentRight internal iliac artery: Visualized portions appear patentRight external iliac artery: Patent.Right common femoral artery: Scattered calcifications on common femoral arterial sheath run. [place] is noted to be above the bifurcation at the level of the common femoral head. No significant stenosis.Right profunda artery: Visualized portions appear patent.Right superficial femoral artery: Occluded proximally. Visualized stent without opacification.Right femoropopliteal bypass: Appears patent.Right popliteal artery: Focal occlusion with collateralization via the geniculate arteries as seen on series 10 image 308.Right tibioperoneal trunk: Patent.Right anterior tibial artery: Appears patent proximal without significant focal stenosis.Right posterior tibial artery: Appears patent proximally without significant focal stenosis.Right peroneal artery: Not visualized, likely occluded.Right posterior tibial artery (foot): Patchy flow within the footRight dorsalis pedis artery: Patchy flow within the foot.Left common iliac artery: PatentLeft internal iliac artery: Visualized portions appear patentLeft external iliac artery: Patent. Note of a left external iliac/common femoral arteriovenous fistula as seen on series 3 image 304.Left common femoralartery: Mild associated stenosis at the area of the fistula.Left profunda artery: Visualized portions appear patent.Left superficial femoral artery: Multifocal narrowing, most prominent in the distal superficial femoral artery best seen on series 5 image 304.Left popliteal artery: Mild multifocal disease.Left tibioperoneal trunk: Multifocal narrowing.Left anterior tibial artery: Focal narrowing at the origin of the anterior tibial artery. Otherwise appears patent.Left posterior tibial artery: Occluded proximally with patchy flow and extensive collateralization.Left peroneal artery: PatentLeft posterior tibial artery (foot): Not visualized.Left dorsalis pedis artery: Patchy flow.Radiation DoseKa,r = 395 mGy ComplicationsNone Specimens RemovedNone Estimated Blood LossLess than 1 mL Blood/Blood Products AdministeredNone Grafts/ImplantsAs described in the above report Impression: 1.Vascular arterialfindings as described above. 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 3.Significant right lower extremity findings of focal, near total occlusion of the right popliteal artery with collateralization through geniculate arteries. There is two-vessel runoff to the right lower extremity. 4.Significant left lower extremity findings of multifocal narrowing of the superficial femoral artery with moderate narrowing distally, occlusion of the posterior tibial artery with minimal flow throughout, and two-vessel runoff to the distal left leg.5.A right common femoral arteriogram demonstrates a normal-appearing right common femoral artery without stenosis or dissection. Access into the right common femoral was deemed appropriate for placement of a Mynx closure device, which was successfully deployed as described above.[facility]-[id number] Garcia
[2020-05-08] MEDS ORDERED: HEPA 1000U/500MLS 2,000 UNIT/1,000 ML BAG IV ONE (06:52)
[2020-05-08] MEDS ORDERED: LIDOCAINE 1% 20 ML MDV ONE (06:52)
[2020-05-08] MEDS ORDERED: NA CHLORIDE 0.9% 500 ML ONE (07:05)
[2020-05-08] MEDS ORDERED: ATROPINE SULF 1 MG/10 ML SYR IV ONE (07:58)
[2020-05-08] MEDS ORDERED: FENTANYL CITR 100 MCG/2 ML ONE (07:58)
[2020-05-08] MEDS ORDERED: MIDAZOLAM HCL 2 MG/2 ML INJ ONE ×2 (07:58→08:03)
[2020-05-08 09:21] VITALS: TEMP 97
[2020-05-08 10:11] VITALS: BP 144/58; O2SAT 99
--- NOTE | 2020-05-08 10:38 | OP ---
Surgeon: Dion Wagner MD Car Unloader: Robson Still. Reason For Admission: Peripheral arterial disease and cerebral vascular disease. Description Of Procedure: Mr. Walker is 64, has had a history of hypertension, diabetes, dyslipidemi a, CABG, documented PAD as well as cerebrovascular disease that has worsened. He was brought to the outside laborer today as an outpatient. He was scheduled for an abdominal aortic angiogram with runoff as w ell as selective bilateral carotid angiogram, which were done today. Indication was PAD and CVD. Th e patient was prepped and draped in the routine sterile fashion. Given Versed and fentanyl for IV se dation. Using the Seldinger technique, a 6-Sri Lankan sheath was introduced in the right common femoral artery after 10 cc of xylocaine. A JR4 catheter was used to cannulate the right and the left carotid . His left carotid system was normal. Normal common carotid, normal external carotid, and normal in ternal carotid. On the right side of his carotid arteries, his common carotid was normal, but he had about an 80% to 90% calcified ulcerated lesion at the ostium of the right internal carotid artery. Following that, a pigtail catheter was introduced just above the renals. Abdominal angiogram was run off revealed a normal renals, normal distal aorta, normal iliac and common femoral. He had a complet evans occluded right SFA. He had a femoral-popliteal on the right side with a 70% mid stenosis. The l eft SFA had moderate diffuse plaquing throughout. Eqabj-bqu-pswr he had severe disease bilaterally w ith complete occlusion of the anterior tibial, posterior tibial, and peroneal as well as popliteal on the left side. On the right side, there was severe similar disease as well. A 6-Sri Lankan sheath and catheters were used. Complication: No complications. Estimated Blood Loss: 5 cc. Anesthesia: Total conscious sedation was 45 minutes. Postoperative Diagnosis: Peripheral arterial disease. Plan: I will plan to treat him medically as well as plan to stent his right femoral-popliteal 1 day. His vascular disease is more severe and more concerning and I need to set him up for a right caroti d endarterectomy soon. The case will be discuss with the family and primary care physician. The pat ient has an Angio-Seal on the right side and he will be at bedrest for 2 hours. I will hydrate him w ell with 125 cc of normal saline and I am going to have a repeat a creatinine in the next few days. NEY/REED Voice ID: [id number] Report ID: [id number]
== END 2020-05-08 10:30 | disposition home or self-care (01) ==
LOC: CCL 06:38
DX: I65.21 Occlusion and stenosis of right carotid artery (principal); I70.203 Unspecified atherosclerosis of native arteries of extremities, bilateral legs; I70.92 Chronic total occlusion of artery of the extremities; I10 Essential (primary) hypertension; E78.5 Hyperlipidemia, unspecified; E11.9 Type 2 diabetes mellitus without complications; Z95.1 Presence of aortocoronary bypass graft; Z88.3 Allergy status to other anti-infective agents; Z91.040 Latex allergy status; Z20.828 Contact with and (suspected) exposure to other viral communicable diseases
CPT/HCPCS: 93005; 85025; 80048; 36415; 85610; 82947; 85730; 71046; 75630; 36222; U0002; C1893; C1760; J2250 ×2; J3010; J7040; J1644

== ENCOUNTER 2020-06-04 08:21 | Inpatient (IN) | payer BC ==
--- OUTSIDE RECORDS SUMMARY | 2020-06-04 08:25 | XMS REPORT | Clinical Summary ---
:1955 Author Organization [facility] Address [address] [place] [address] Care Team Providers Name Role Phone Elvi [...] (vial) the skin nightly. UNABLE TO FIND [facility] OTC 0 Act mima - 1 PO [...] tablet 11 09/26/19 Active MG tabletIndications: tablet (10 021 Memory loss or mg total) by impairment mouth 2 (two) times a day. ibuprofen (ADVIL) 600 Take 600 mg 0 Active MG tablet by mouth every 6 (six) hours as needed. DULoxetine (Cymbalta) Take 2 tabs 270 capsule 1 02/08/20 Active 30 MG at night x 1 20 capsuleIndications: month, then Polyneuropathy, increase to Paresthesia 3 tabs at night and continue pantoprazole (PROTONIX) Take 40 mg 0 03/27/2009/26 [...] 6 12/04/19 Discontinued 30 MG capsule (30 20 020 [...] loss or impairment 06/14/2019 Hospital Encounter Radiology Troy Huber Perip heral vascular disease, unspec ified (HCC) 06/04/2019 Transcribe Orders Radiology Troy Huber Periph eral vascular disease, unspec ified (HCC) (Primary Dx) after 06/04/2019 Surgical History Surgery Date Site/Laterality Comments CORONARY ARTERY BYPASS GRAFT 09/15/2010 - tri ple 10/12/2010 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 S\\T\\I ROTATOR CUFF REPAIR 05/15/2015 - Left 06/14/2015 CARDIAC CATHETERIZATION 03/07/2017 N/A Procedur e: Aortagram abdomen w run of f; Surgeon: Júnior Huber MD; Location: [facility] Community Association Manager Invasive Loc ation; Service: Cardiov ascular; Laterality: N/A ; CARDIAC CATHETERIZATION CORONARY ANGIOPLASTY CARDIAC CATHETERIZATION 03/07/2017 N/A Procedur e: Cv left heart cath w lv gram c ors; Surgeon: Júnior Huber MD; Location: [facility] Community Association Manager Invasive Loc ation; Service: Cardiov ascular; Laterality: N/A ; OTHER SURGICAL HISTORY 'right le g bypass' 07/2013 STENT right leg x 4 CORONARY ANGIOPLASTY WITH x1 2002 STENT PLACEMENT REPAIR, ROTATOR CUFF, 07/13/2018 Shoulder/Right Procedure: RIGHT ARTHROSCOPIC SHOULDER ROTATOR CUFF REPAIR, SUBACROM IAL DECOMPRESSION; Surgeon: Karlos Sherwood M D; Location: [facility] OP C 19 OR; Service: Orthop edics; Laterality: Righ t; Medical devices from this surgery are in the Implants section . Medical History Medical History Date Comments Hypertension Hyperlipidemia Diabetes mellitus ([facility]) Anesthesia NHAP;NFHAP Depression Coronary artery disease last episode of CP prior to CABG CHF (congestive heart failure) ([facility]) 2011 PAD (peripheral artery disease) ([facility]) GERD (gastroesophageal reflux disease) o ccasional Deep vein thrombosis ([facility]) 2011 leg Type 2 diabetes mellitus ([facility]) DDD (degenerative disc disease), cervical Carotid stenosis Family History Medical History Relation Name Comments [...] 07/23/2020 Office [place] [address] [facility] [address] [place] [address] [id number] Health Maintenance Due Date Last Done Comments DIABETES: RETINAL EYE EXAM 11/15/1967 DIABETIC FOOT EXAM 11/15/1967 URINE MICROALBUMIN 11/15/1967 COLONOSCOPY SCREENING 11/15/2007 SHINGLES VACCINES (#1) 11/15/2007 INFLUENZA VACCINE 03/15/2020 05/10/2019, 05/29/2018 Implants Implanted Type Area Asphalt Paving Machine Operator Device Shelf Model / Identifier Expiration Serial / Date Lot Device Vasclr Clsr Baln Cath 10ml Lkng Syr 5fr Matthews My nxgrip - [id number] Cardiovascular N/A: ACCESS CLOSURE 02/11/2021 [id number] / Implanted: 06/14/2019 at [facility] (Quantity not on file) Implants N/A INC / [id number] Description:bioabsorbable /non metalic Suture Bliss Iconix 2.3mm - [id number] Orthopedic Right: DIXIE 08/27/2019 3910 500 [id number] / Implanted: Qty: 2 on 07/13/2018 by Karlos Sherwood MD at [facility] Surgical Shoulder ENDOSCOPY DIV / Implants [id number] Suture Bliss Reelx 4.5mm Knotless - [id number] Orthopedic Right: DIXIE 04/26/2020 3910 600 [id number] / Implanted: Qty: 1 on 07/13/2018 by Karlos Sherwood MD at [facility] Surgical Shoulder ENDOSCOPY DIV / Implants [id number] Suture Bliss Reelx 4.5mm Knotless - [id number] Orthopedic Right: DIXIE 04/26/2020 3910 600 062 / Implanted: Qty: 1 on 07/13/2018 by Karlos Sherwood MD at [facility] Surgical Shoulder ENDOSCOPY DIV / Implants [id number] Suture Bliss Iconix 2.3mm - [id number] Orthopedic Right: DIXIE 08/26/2019 3910 500 [id number] / Implanted: Qty: 1 on 07/13/2018 by Karlos Sherwood MD at [facility] Surgical Shoulder ENDOSCOPY DIV / Implants [id number] Drill Bit Iconix 2.3mm Disp - [id number] Orthopedic Right: DIXIE 11/27/2019 3910 500 569 / Implanted: Qty: 1 on 07/13/2018 by Karlos Sherwood MD at [facility] Surgical Shoulder ENDOSCOPY DIV / Implants [id number] Suture Bliss Reelx 4.5mm Knotless - [id number] Orthopedic Right: DIXIE 01/26/2020 3910 600 062 / Implanted: Qty: 1 on 07/13/2018 by Karlos Sherwood MD at [facility] Surgical Shoulder ENDOSCOPY DIV / Implants [id number] Suture Bliss Reelx 4.5mm Knotless - [id number] Orthopedic Right: DIXIE 01/26/2020 3910 600 062 / Implanted: Qty: 1 on 07/13/2018 by Karlos Sherwood MD at [facility] Surgical Shoulder ENDOSCOPY DIV / Implants [id number] Stent Stent Procedures Procedure Name Priority Date/Time [...] are i n the results section. after 06/04/2019 Results MRI Lumbar Spine Wo Contrast (03/13/2020 1:10 PM CDT) Specimen Narrative Performed At EXAMINATION: MRI LUMBAR SPINE WO CONTRFROYLAN T HM [facility] CLINICAL HISTORY: R29.2 Abnormal [...] at L4-5 and L5-S1 as detailed above. [id number] Procedure Note Hm Interface, Radiology Results Incoming [...] at L4-5 and L5-S1 as detailed above. [id number] Performing Organization Address City/State/ZIP Code Phon e Number [facility] [address] [place] [address] MRI Thoracic Spine Wo Contrast (03/13/2020 12:55 [...] and suba rticular zone stenosis as above. [id number] Procedure Note Hm Interface, Radiology Results Incoming - 03/13/2020 1:25 PM CDT EXAMINATION: MRI THORACIC [...] foraminal and subarticular zone stenosis as above. [id number] Performing Organization Address City/State/ZIP Code Phon e Number [facility] [address] [place] [address] MRI Cervical Spine Wo Contrast (03/13/2020 12:29 [...] C5-6, and C6-7. No abnormal cord signal. [facility]-[id number] Procedure Note Hm Interface, Radiology Results - [...] C5-6, and C6-7. No abnormal cord signal. [facility]-[id number] Performing Organization Address City/State/ZIP Code Phon e Number [facility] [address] [place] [address] PET Brain Metabolic Eval (03/13/2020 10:26 AM CDT) Specimen Narrative Performed At This result has an attachment that is no t available. PROCEDURE: PET BRAIN METABOLIC EVAL [facility] [place] INDICATION: R41.3 Other amnesia, memory loss COMPARISON: [...] evidence of a progressive neur odegenerative disorder. [facility]-[id number] Procedure Note Interface, Radiology Results Incoming - 03/13/2020 11:33 AM [...] evidence of a pr ogressive neurodegenerative disorder. [id number] Performing Organization Address City/State/ZIP Code Phon e Number [facility] [address] [place] [address] POC glucose (03/13/2020 8:15 AM CDT)Only the most recent of3 resultswithin the time period is included. Pathologist Sig nature POC glucose 134 (H) 65 - 99 mg/dL [place] SCIENTOLOGIST Comment: [facility] Radiosonde Operator Name: Bailey Clarkh Device ID: [id number] Chartable: No Action Needed Specimen Blood Performing Organization Address City/State/ZIP Code Phon e Number [facility] DEPARTMENT OF PATHOLOGY [address] [facility] [place] [address] AND GENOMIC MEDICINE [facility] [address] [facility] [place] [address] HOSPITAL IR Abdominal Arterial Angioplasty/Stent Placement (06/14/2019 1:39 PM CDT) Specimen Narrative Performed At Performing Radiologist BAILEY Cardenas MD Assistants None Anesthesia Type Moderate sedation was administered by the procedure nu rse and monitored by the procedure physician for a total zlrf-jx-pdfr se dation time of approximately 61 minutes. [...] The micropuncture sheath was removed, and a 5-Chinese vascu lar sheath was then placed. Although sonographic guidance was utilized and a single stick arterial puncture was performed, given the ultrasound machine, no sonographic image could be sent to PACS. A sheath was placed into the right common femoral artery. A right common femoral arteriogram was then performed with injection of contrast through the 5-Chinese vascular sheath to evalu ate the arterial access into the right common femoral art malka. A 5-Chinese pigtail catheter was advanced successfully into the distal abdominal aorta aorta. An aortogram and pelvic arterio gram was then performed with injection of contrast in the AP projection. Exchange then made for a 5 Chinese sauce catheter, thro ugh which a Glidewire was used to select the contralateral, left e xternal iliac artery. Next, the catheter was removed over a wire and a 5 Chinese 65 cm Kumpe catheter was placed into [...] Aft er adequate imaging was obtained, the 5-Chinese vascular sheath was removed the right common femoral artery, and a Mynx closur e device was used for hemostasis. The patient roge erated the procedure well. Findings Distal aorta: Patent. Right common iliac artery: Patent Right internal iliac artery: Visualized portions appear patent Right external iliac artery: Patent. Right common femoral artery: Scattered calcifications on common femoral arterial sheath run. [place] is noted to be above the bif [...] which was successfully deployed as described above. [facility]-[id number] Procedure Note [facility], Radiology Results Incoming - 06/14/2019 7:31 PM CDT Performing Radiologist Akhil Cardenas MD Assistants None Anesthesia Type Moderate sedation was administered by th e procedure nurse and monitored by the procedure physician for a total jahs-ek-rtuh sedation time of approximately 61 minutes. Lidocaine [...] The micropuncture sheath was removed, and a 5-Chinese vascular sheath was then placed. Although sonogr aphic guidance was utilized and a single stick arterial puncture was performed, given the ultrasound machine, no sonographic image could be sent to PACS. A sheath was placed into the right common femoral artery. A right common femoral arteriogram was t hen performed with injection of contrast through the 5-Chinese vascular sheath to evaluate the arterial access into the right common femoral artery. A 5-Chinese pigtail catheter was advanced successfully into the distal abdominal aorta aorta. An aortogram and pelvic arteriogram was then performed with injection of contrast in the AP projection. Exchange then made for a 5 Chinese sauce catheter, through which a Glidewire was used to select the contralateral, left external iliac artery. Next, the catheter was removed over a wire and a 5 Chinese 65 cm Kumpe catheter was placed into [...] sheath. After adequate imaging was obtained, the 5-Chinese vascular sheath was removed the right common femoral artery, and a Mynx closure devic e was used for hemostasis. The patient roge erated the procedure well. Findings Distal aorta: Patent. Right common iliac artery: Patent Right internal iliac artery: Visualized portions appear patent Right external iliac artery: Patent. Right common femoral artery: Scattered c alcifications on common femoral arterial sheath run. [place] is noted to be above the bifurcation [...] which was successfully deployed as described above. 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
--- OUTSIDE RECORDS SUMMARY | 2020-06-04 08:26 | XMS REPORT | Clinical Summary ---
:1955 Author Organization [facility] Address [address] [place] [address] Care Team Providers Name Role Phone Elvi Mccracken DO Primary Care Provider [facility] Unavailable Allergies Active Allergy Reactions Severity Noted Date Comments Adhesive Rash Low 07/02/2011 Ciprofloxacin 05/14/2020 Latex 05/14/2020 Pregabalin 11/16/2019 Other reaction( s): Info Not Available, Unknown Medications Medication Sig Dispensed Refills Start End Status Date Date clopidogreL (PLAVIX) Take 75 mg by 0 Active 75 mg tablet mouth daily . 020 FOLBEE 2.5-25-1 mg Tab Take 1 tablet by 0 Active tablet mouth daily. 020 DEXILANT 60 mg capsule Take 1 capsule by 0 Active mouth daily. 020 TRULICITY 1.5 mg/0.5 1.5 mg by 0 2 Active mL PnIj Subconjunctival 020 route once a week . DULoxetine (CYMBALTA) Take 60 mg by 0 Active 30 MG capsule mouth nightly . 020 hydroCHLOROthiazide Take 25 mg by 0 Active (HYDRODIURIL) 25 MG mouth daily . 020 tablet losartan (COZAAR) 100 Take 100 mg by 0 Active MG tablet mouth daily . 020 BYSTOLIC 20 mg Tab Take 20 mg by 0 Active mouth daily . 020 rosuvastatin (CRESTOR) Take 10 mg by 0 2 Active 10 MG tablet mouth daily . 020 insulin glargine Inject 35 Units 0 Active (LANTUS) 100 unit/mL subcutaneously injection nightly Use as directed . insulin lispro Inject 14 Units 0 Active (HUMALOG) 100 unit/mL subcutaneously 3 InPn (three) times daily before meals . glyBURIDE-metFORMIN Take 1 tablet by 0 Active (GLUCOVANCE) 5-500 mg mouth 2 (two) per tablet times daily with breakfast and dinner . cetirizine (ZYRTEC) 10 Take 10 mg by 0 Active MG tablet mouth daily. aspirin 81 MG EC Take 81 mg by 0 Active tablet mouth daily. amoxicillin-clavulanat 2 (two) times 0 e (AUGMENTIN) 875-125 daily. 020 2019 (Stop Taking mg per tablet at Dis charge) Active Problems Problem Noted Date Carotid artery disease 05/29/2020 Preoperative evaluation to rule out surgical contraind ication 05/29/2020 Coronary artery disease Diabetes mellitus Hypertension Hyperlipidemia Encounters Date Type Specialty Care Team Description 05/29/2020 Anesthesia Event Marco, MD Gage Su Thomas Ryan, MD 05/29/2020 Surgery Letsou, ENDARTERECTOMY, CAROTID Ad Jacobo MD 05/29/2020 - Hospital Encounter Cardiology Liz, Preoperat mima evaluation 05/30/2020 Ad to rule out elio jelena Jacobo MD contraindicatio n (Primary Dx) 05/28/2020 Hospital Encounter Pre-Admission Testing 05/28/2020 Office Visit Cardiology Liz Preoperative ev emiliano Duong to rule out elio jelena Jacobo MD contraindication Vishnu Sarah RN 05/22/2020 Orders Only Cardiology Courtney Enriquez ev emiliano Serna RN to rule out elio gical contraindicatio n (Primary Dx) 05/21/2020 Office Visit Cardiology Liz Preoperative ev emiliano Duong to rule out elio jelena Jacobo MD contraindication Vishnu Sarah RN 05/21/2020 Travel 05/20/2020 Orders Only Cardiology Courtney Enriquez ev emiliano Serna, KP to rule out elio gical contraindicatio n (Primary Dx) 05/15/2020 Video - Telemedicine Cardiology Liz, Carotid stenosis, right (Primary Dx); Ad Coronary artery disease involving squaxin coronary artery of squaxin heart without angina pectoris; MD Donnell Type 2 diabetes mellitus with diabetic peripheral angiopathy without gangrene, with long-term current use of insulin (HCC); Essential hyper tension; Hypercholestero lemia; Peripheral mary kate rial disease (HCC); Status post fem oral-popliteal bypass surgery 05/15/2020 Orders Only Cardiology Mina, Courtney ev emiliano Serna RN to rule out elio gical contraindicatio n (Primary Dx) after 06/04/2019 Family History Medical History Relation Name Comments Heart attack Brother Hypertension Brother Heart attack Brother Hypertension Brother Heart attack Father Hypertension Father Stroke Mother Relation Name Status Comments Brother Brother Father Mother Social History Tobacco Use Types Packs/Day Years Used Date Former Smoker 0.5 30 Quit: 2010 Smokeless Tobacco: Never Used Alcohol Use Drinks/Week oz/Week Comments Yes 14 Cans of beer 14.0 Alcohol Habits Answer Date Recorded How often do you have a drink containing alcohol? Never 05/14/2020 How many drinks containing alcohol do you have on a typical Not asked day when you are drinking? How often do you have six or more drinks on one occasion? No t asked Sex Assigned at Date Recorded Not on file COVID-19 Exposure Response Date Recorded In the last month, have you been in contact with No / Unsure 05/21/2020 10:30 AM CDT someone who was confirmed or suspected to have Coronavirus / COVID-19? Last Filed Vital Signs Vital Sign Reading Time Taken Comments Blood Pressure 161/70 05/30/2020 3:00 PM CDT Pulse 65 05/30/2020 3:00 PM CDT Temperature 36.2 C (97.2 F) 05/30/2020 3:00 PM CDT Respiratory Rate 16 05/30/2020 3:00 PM CDT Oxygen Saturation 97% 05/30/2020 3:00 PM CDT Inhaled Oxygen Concentration - - Weight 115.7 kg (255 lb 1.6 oz) 05/29/2020 5:42 AM CDT Height 180.3 cm (5' 11") 05/29/2020 5:42 AM CDT Body Mass Index 35.58 05/29/2020 5:42 AM CDT Plan of Treatment Date Type Specialty Care Team Description 06/18/2020 Video - Telemedicine Cardiology Brayan Hill MD [address] [address] [phone] Health Maintenance Due Date Last Done Comments COLON CANCER SCREENING COLONOSCOPY 1955 DIABETIC EYE EXAM 11/15/1967 DIABETIC FOOT EXAM 11/15/1967 URINE MICROALBUMIN 11/15/1967 LIPID PANEL 1992 INFLUENZA VACCINE (#1) 2020 05/10/2019 HEMOGLOBIN A1C 11/28/2020 05/30/2020 PNEUMOCOCCAL VACCINE 0-64 YRS Completed 05/09/2020 Implants Implanted Type Area Glass Mold Repairer Device Shelf Model / Identifier Expiration Serial / Lot Date Lola Hemshld Dbl Alejo 0.3x3.0in [id number] - [id number] NTS Right: GETINGE 11/12/2024 [id number] / Implanted: Qty: 1 on 05/29/2020 by Ad Clifton MD at [facility] Arterial IND:MAQUET:CV [id number] / [id number] Description:RIGHT CAROTID ENDARTERCTOMY Procedures Procedure Name Priority Date/Time Associated Diagnosis Comme nts POCT-GLUCOSE METER Routine 05/30/2020 10:54 Resul ts for this AM CDT procedure are i n the results section. XR CHEST 1 VIEW STAT 05/30/2020 9:20 Results for this PORTABLE/BEDSIDE AM CDT procedure a re in the results section. POCT-GLUCOSE METER Routine 05/30/2020 7:51 Resul ts for this AM CDT procedure are i n the results section. CBC W/PLT COUNT & Routine 05/30/2020 7:06 Result s for this AUTO DIFFERENTIAL AM CDT procedure are in the results section. CBC W/PLT COUNT & Routine 05/30/2020 7:06 Result s for this AUTO DIFFERENTIAL AM CDT procedure are in the results section. HEMOGLOBIN A1C Routine 05/30/2020 5:43 Results f or this AM CDT procedure are i n the results section. TSH/FREE T4 IF Routine 05/30/2020 5:43 Results f or this INDICATED AM CDT procedure are i n the results section. MAGNESIUM Routine 05/30/2020 5:43 Results for this AM CDT procedure are i n the results section. PHOSPHORUS Routine 05/30/2020 5:43 Results for this AM CDT procedure are i n the results section. CALCIUM, IONIZED Routine 05/30/2020 5:43 Results for this AM CDT procedure are i n the results section. BASIC METABOLIC Routine 05/30/2020 5:43 Results for this PANEL (7) AM CDT procedure are i n the results section. POCT-GLUCOSE METER Routine 05/29/2020 10:04 Resul ts for this PM CDT procedure are i n the results section. POCT-GLUCOSE METER Routine 05/29/2020 4:44 Resul ts for this PM CDT procedure are i n the results section. POCT-GLUCOSE METER Routine 05/29/2020 12:29 Resul ts for this PM CDT procedure are i n the results section. BASIC METABOLIC Routine 05/29/2020 12:28 Results for this PANEL (7) PM CDT procedure are i n the results section. CBC (HEMOGRAM ONLY) Routine 05/29/2020 12:28 Resu lts for this PM CDT procedure are i n the results section. HGB/HCT (H&H) - STAT 05/29/2020 10:11 Results for this STAT LAB AM CDT procedure are i n the results section. GLUCOSE-STAT LAB STAT 05/29/2020 10:11 Results for this AM CDT procedure are i n the results section. POTASSIUM-STAT LAB STAT 05/29/2020 10:11 Resul ts for this AM CDT procedure are i n the results section. SODIUM NA-STAT LAB STAT 05/29/2020 10:11 Resul ts for this AM CDT procedure are i n the results section. BLOOD GAS, ARTERIAL STAT 05/29/2020 10:11 Resu lts for this AM CDT procedure are i n the results section. CALCIUM, IONIZED STAT 05/29/2020 10:11 Results for this AM CDT procedure are i n the results section. BLOOD GAS, ARTERIAL STAT 05/29/2020 10:11 Resu lts for this AM CDT procedure are i n the results section. ENDARTERECTOMY,ANDERSON 05/29/2020 8:23 Stenosis of carot id TID AM CDT artery, unspecified laterality ABORH, MANUAL STAT 05/29/2020 6:28 Results fo r this AM CDT procedure are i n the results section. POCT-GLUCOSE METER Routine 05/29/2020 5:50 Resul ts for this AM CDT procedure are i n the results section. PLATELET AP Routine 05/28/2020 10:34 Preoperative evaluation Results for this AGGREGATION: AM CDT to rule out surgical procedu re are in FUNCTION SCREEN contraindication the resu lts section. SARS-COV2/RT-PCR Routine 05/28/2020 10:15 Preoperative evaluat ion Results for this ([facility] & REF LABS) AM CDT to rule out surgical pr ocedure are in contraindication the results section. TRANSFUSION SERVICE 05/22/2020 6:05 Preoperative eval uation REPORT - SCAN PM CDT to rule out surgical contraindication CBC W/PLT COUNT & Routine 05/21/2020 11:01 Preoperative evalua tion Results for this AUTO DIFFERENTIAL AM CDT to rule out surgical pr ocedure are in contraindication the results section. TYPE AND SCREEN, Routine 05/21/2020 11:01 Preoperative evaluat ion Results for this AUTOMATED AM CDT to rule out surgical procedu re are in contraindication the results section. PLATELET Routine 05/21/2020 11:01 Preoperative evaluation Results for this AGGREGATION: AM CDT to rule out surgical procedu re are in FUNCTION SCREEN contraindication the resu lts section. PROTHROMBIN Routine 05/21/2020 11:01 Preoperative evaluation Results for this TIME/INR AM CDT to rule out surgical procedu re are in contraindication the results section. CBC W/PLT COUNT & Routine 05/21/2020 11:01 Preoperative evalua tion Results for this AUTO DIFFERENTIAL AM CDT to rule out surgical pr ocedure are in contraindication the results section. BASIC METABOLIC Routine 05/21/2020 11:01 Preoperative evaluati on Results for this PANEL (7) AM CDT to rule out surgical procedu re are in contraindication the results section. SARS-COV2/RT-PCR Routine 05/21/2020 10:38 Preoperative evaluat ion Results for this ([facility] REF LABS) AM CDT to rule out surgical pr ocedure are in contraindication the results section. ECG 12-LEAD Routine 05/21/2020 10:32 Preoperative evaluation Results for this AM CDT to rule out surgical procedu re are in contraindication the results section. after 06/04/2019 Results POC-Glucose meter (05/30/2020 10:54 AM CDT)Only the most recent of6 results within the time period is included. POC-Glucose Meter 267 (H) 70 - 110 mg/dL [facility] Comment: [facility] : TESTED AT [facility] [address] [facility], [address] CENTER : Inventory Planner/Supervisor Shaving And Splitting ID = [id number] for JORGE ACE Specimen Blood Performing Organization Address City/[facility]/Zipcode Phone Number [facility] [address] [place], [place] [phone] CENTER XR chest 1 view portable / bedside (05/30/2020 9:20 AM CDT) Specimen Narrative Performed At FINAL REPORT [facility] CLINICAL HISTORY: dyspnea TECHNIQUE: 1 view of the chest. COMPARISON: None IMPRESSION: There is left lower lung atelectasis. Th e right lung appears well-aerated. There is no significant pl eural fluid. The cardiomediastinal silhouette is magnifie d by technique with sternotomy wires. Signed: Alexis Mesa MD Report Verified Date/Time: 05/30/2020 10:20:48 Reading Location: [facility] Reading Room Procedure Note Interface, External Ris In - 05/30/2020 10:22 AM CDT FINAL REPORT CLINICAL HISTORY: dyspnea TECHNIQUE: 1 view of the chest. COMPARISON: None IMPRESSION: There is left lower lung atelectasis. Th e right lung appears well-aerated. There is no significant pl eural fluid. The cardiomediastinal silhouette is magnifie d by technique with sternotomy wires. Signed: Alexis Mesa MD Report Verified Date/Time: 05/30/2020 1 0:20:48 Reading Location: [employer] [facility] Reading Room Performing Organization Address City/State/Zipcode Phone Number [facility] CBC with platelet count + automated diff (05/30/2020 7:06 AM CDT)Only the most recent of2 resultswithin the time period is included. Pathologist Sig nature WBC 9.6 3.5 - 10.5 [facility] K/L [facility] RBC 4.07 (L) 4.63 - 6.08 [facility] M/L [facility] Hemoglobin 12.4 (L) 13.7 - 17.5 [facility] GM/DL [facility] Hematocrit 37.7 (L) 40.1 - 51.0 % [facility] MCV 92.6 (H) 79.0 - 92.2 fL [facility] MCH 30.5 25.7 - 32.2 pg [facility] MCHC 32.9 32.3 - 36.5 [facility] GM/DL [facility] RDW 13.2 11.6 - 14.4 % [facility] Platelets 174 150 - 450 K/CU [facility] MM [facility] MPV 10.9 9.4 - 12.4 fL [facility] nRBC 0 0 - 0 /100 WBC [facility] % Neutros 75 % [facility] % Lymphs 15 % [facility] % Monos 9 % [facility] % Eos 2 % [facility] % Baso 1 % [facility] # Neutros 7.15 (H) 1.78 - 5.38 [facility] # Lymphs 1.39 1.32 - 3.57 [facility] # Monos 0.81 0.30 - 0.[address] [facility] # Eos 0.14 0.04 - 0.54 [facility] # Baso 0.07 0.01 - 0.[address] [facility] Immature 0 0 - 1 % [facility] Granulocytes-Relative [facility] Specimen Blood Performing Organization Address City/State/Zipcode Phone Number [facility] [address] [place] [address] CENTER TSH/Free T4 If Indicated (05/30/2020 5:43 AM CDT) Pathologist Sig nature TSH 0.888 0.350 - 4.940 uIU/mL [facility] Specimen Blood Narrative Performed At Inventory Planner ID - MINNA [facility] Performing Organization Address [facility]/[employer] Phone Number [address] [address] CENTER Calcium, Ionized (05/30/2020 5:43 AM CDT)Only the most recent of2 resultswithin the time period is included. Pathologist Sig [facility] Calcium, Ion 1.14 1.12 - 1.27 mmol/L [facility] pH, Blood 7.32 [facility] Specimen Blood Performing Organization Address [facility]/[employer] Phone Number [address] [address] CENTER Phosphorus (05/30/2020 5:43 AM CDT) Pathologist Sig nature Phosphorus 3.2 2.3 - 4.7 mg/dL [facility] Specimen Blood Narrative Performed At Inventory Planner ID - GIO L [facility] Performing Organization Address [facility] Phone Number [address] [address] CENTER Magnesium (05/30/2020 5:43 AM CDT) Pathologist Sig nature Magnesium 1.4 (L) 1.6 - 2.6 mg/dL [facility] Specimen Blood Narrative Performed At Inventory Planner ID - PISHLOMO L [facility] Performing Organization Address [facility]/[employer] Phone Number [address] [address] CENTER Hemoglobin A1c (05/30/2020 5:43 AM CDT) Pathologist Sig nature Hemoglobin A1C 7.4 (H) 4.3 - 6.1 % [facility] Specimen Blood Narrative Performed At Inventory Planner ID - [facility] Performing Organization Address City/State/Zipcode Phone Number [facility] [address] [place], [place] [address] Basic Metabolic Panel (05/30/2020 5:43 AM CDT)Only the most recent of3 results within the time period is included. Sodium 137 136 - 145 meq/L [facility] Potassium 4.1 3.5 - 5.1 meq/L [facility] Chloride 99 98 - 107 meq/L [facility] CO2 29 22 - 29 meq/L [facility] BUN 14 7 - 21 mg/dL [facility] Creatinine 1.07 0.57 - 1.25 [facility] mg/dL [facility] Glucose 179 (H) 70 - 105 mg/dL [facility] Calcium 9.2 8.4 - 10.2 [facility] mg/dL [facility] EGFR 70Comment: ESTIMATED mL/min/1.[address] [facility] GFR IS NOT [facility] ACCURATE [place] CREATININE CLEARANCE IN PREDICTING GLOMERULAR FILTRATION RATE. ESTIMATED GFR IS NOT APPLICABLE FOR DIALYSIS PATIENTS. Specimen Blood Narrative Performed At Inventory Planner ID - PIAYA L [facility] IC[facility] C[facility] Performing Organization Address City/State/Zipcode Phone Number [facility] [address] [place] [address] CENTER CBC (Hemogram only) (05/29/2020 12:28 PM CDT) Pathologist Sig nature WBC 8.1 3.5 - 10.5 K/L [facility] RBC 3.96 (L) 4.63 - 6.08 M/L [facility] Hemoglobin 11.9 (L) 13.7 - 17.5 GM/DL [facility] Hematocrit 36.5 (L) 40.1 - 51.0 % [facility] MCV 92.2 79.0 - 92.2 fL [facility] MCH 30.1 25.7 - 32.2 pg [facility] MCHC 32.6 32.3 - 36.5 GM/DL [facility] RDW 13.2 11.6 - 14.4 % [facility] Platelets 173 150 - 450 K/CU MM [facility] MPV 10.6 9.4 - 12.4 fL [facility] nRBC 0 0 - 0 /100 WBC [facility] Specimen Blood Performing Organization Address City/[facility]/[employer] Phone Number [address] [address] CENTER Potassium-Stat Lab (05/29/2020 10:11 AM CDT) Pathologist Sig nature Potassium 4.0 3.6 - 5.5 meq/L [facility] Specimen Blood, Arterial Performing Organization Address City/[facility]/[employer] Phone Number [address] [address] CENTER Sodium Na-Stat Lab (05/29/2020 10:11 AM CDT) Pathologist Sig nature Sodium 137 136 - 145 meq/L [facility] Specimen Blood, Arterial Performing Organization Address City/[facility]/[employer] Phone Number [address] [address] CENTER Glucose-Stat Lab (05/29/2020 10:11 AM CDT) Pathologist Sig nature Glucose 153 (H) 70 - 110 mg/dL [facility] Specimen Blood, Arterial Performing Organization Address [facility]/[employer] Phone Number [address] [address] CENTER HGB/HCT (H&H)-Stat Lab (05/29/2020 10:11 AM CDT) Pathologist Sig nature Hemoglobin 12.6 (L) 13.0 - 16.8 GM/DL [facility] Hematocrit 37.0 (L) 40.0 - 50.0 % [facility] Specimen Blood, Arterial Performing Organization Address City/[facility]/[employer] Phone Number [address] [address] [place] Blood gas, arterial (05/29/2020 10:11 AM CDT) Pathologist Sig nature pH, Arterial 7.44 7.35 - 7.45 [facility] pCO2, Arterial 40 35 - 45 mm Hg [facility] pO2, Arterial 334 (H) 80 - 90 mm Hg [facility] O2 Sat, Arterial 99.8 (H) 96.0 - 97.0 % [facility] HCO3, Arterial 26 21 - 29 mmol/L [facility] Base Excess, Arterial 1.8 -2.0 - 3.0 [facility] mmol/L [facility] Patient Temperature 36.5 [facility] FIO2 100.0 [facility] Specimen Blood, Arterial Performing Organization Address City/[facility]/[employer] Phone Number [address] [address] CENTER ABORH, manual (05/29/2020 6:28 AM CDT) Pathologist Sig nature ABO Grouping A [facility] DICAL [place] Rh Factor POS [facility] DICAL [place] Specimen Blood Performing Organization Address City/[facility]/[employer] Phone Number [address] [address] Platelet Aggregation: Function Screen (05/28/2020 10:34 AM CDT)Only the most recent of2 resultswithin the time period is included. Pathologist: Michael Teran MD [facility] (electronic [facility] signature) [facility] Platelets 210 150 - 450 [facility] K/CU MM [facility] ADP 38 (L) 62 - 100 % [facility] Platelet Rich Plasma 278 200 - 300 [facility] k/cu [facility] Plt. Function Screen Decreased [facility] Interpretation aggregation with [facility] ADP which [facility] [place] indicates platelet dysfunction that may be due to medication effect, uremia, or other platelet function disorders. Clinical correlation is required. Specimen Blood Narrative Performed At Platelet Function Screen results may be [facility] falsely low with platelet counts <75,000/cu mm. Inventory Planner ID - [id number] Performing Organization Address City/State/Zipcode Phone Number [facility] [address] [place] [address] CENTER SARS-CoV2/RT-PCR ([facility]) (05/28/2020 10:15 AM CDT)Only the most recent of2 resultswithin the time period is included. SARS-COV2/RT-PCR Negative Not Detected, [facility] Negative, See [facility] external report CENTER for linked test SARS-COV-2 [facility] Y[address] [facility] PERFORMING LAB [facility] Specimen Other - Nasopharyngeal wall structure (b saumya structure) Narrative Performed At Negative result for this test determines that [facility] SARS-CoV-2 RNA was not present in the specimen above the Limit of Detection (LOD). However, Negative results do not preclude SARS-CoV-2 infection and should not be used as the sole basis for treatment or patient management decisions. Negative results must be combined with clinical observations, patient history, and epidemiological information. A false negative result may occur if a specimen is improperly collected, transported or handled. A false negative result should be considered if patient's recent exposures or clinical presentation indicate that COVID-19 (SARS-CoV-2) is likely and diagnostic tests for other causes of illness are negative. Re-testing should be considered in cases of suspected false negatives. The limit of detection for this assay is 800 copies/mL. This SARS CoV-2 test is a real-time RT-PCR test intended for the qualitative detection of nucleic acid from SARS-CoV-2 in a nasopharyngeal swab specimen collected from individuals suspected of COVID-19 by their healthcare provider. This test has not been Food and Drug Administration (FDA) cleared or approved. This is a modified version of an approved Emergency Use Authorization (EUA) and is in the process of review by the FDA. Once authorized by the FDA, the issued EUA will be effective until the declaration that circumstances exist justifying the authorization of the emergency use of in vitro diagnostic tests for detection and/or diagnosis of COVID-19 is terminated under Section 564(b)(2) of the Act or the EUA is revoked under Section 564(g) of the Act. Fact Sheet for Healthcare Providers: https://www.[employer]/sites/default/files/pro duct/documents/Fact_Sheet_HC_Providers_Lyra_SA RS-CoV-2.pdf Fact Sheet for Healthcare Patients: https://www.[employer]/sites/default/files/pro duct/documents/Fact_Sheet_Patients_Lyra_SARS-C oV-2.pdf Performing Laboratory: [address] [place] [address] Performing Organization Address City/[facility]/Zipcode Phone Number [address] [address] CENTER TRANSFUSION SERVICE REPORT - SCAN (05/22/2020 6:05 PM CDT) Narrative Performed At This result has an attachment that is no t available. Type and screen, automated (05/21/2020 11:01 AM CDT) Pathologist Sig [facility] ABO/RH AUTOMATED A POSITIVE [facility] [facility] Specimen Blood Performing Organization Address [facility]/Zipcode Phone Number [address] [address] Prothrombin time/INR (05/21/2020 11:01 AM CDT) Pathologist Sig [facility] Protime 13.4 11.9 - 14.2 seconds [facility] INR 1.05 <=5.90 [facility] Specimen Blood Narrative Performed At Effective 01/10/2019: PT Reference Range [facility] Change New: 11.9-14.2 Previous: 11.7-14.7 RECOMMENDED COUMADIN/WARFARIN INR THERAPY RANGES STANDARD DOSE: 2.0-3.0 Includes: PROPHYLAXIS for venous thrombosis, systemic embolization; TREATMENT for venous thrombosis and/or pulmonary embolus. HIGH RISK: Target INR is 2.5-3.5 for patients wiht mechanical heart valves. Performing Organization Address City/State/Zipcode Phone Number [facility] [address] [place] [address] CENTER Electrocardiogram, 12-lead (05/21/2020 10:32 AM CDT) Specimen Narrative Performed At Ventricular Rate 65 BPM GE MUSE Atrial Rate 65 BPM P-R Interval 162 ms QRS Duration 166 ms Q-T Interval 454 ms QTC Calculation(Bazett) 472 ms P [place] 68 degrees R [place] -78 degrees T [place] 59 degrees Normal sinus rhythm Left axis deviation Right bundle branch block Abnormal ECG No previous ECGs available Confirmed by Brandin Reed ([id number]) on 05/21/2020 2:09:01 PM Procedure Note Interface, External Ris In - 05/21/2020 2:09 PM CDT Ventricular Rate 65 BPM Atrial Rate 65 BPM P-R Interval 162 ms QRS Duration 166 ms Q-T Interval 454 ms QTC Calculation(Bazett) 472 ms P [place] 68 degrees R [place] -78 degrees T [place] 59 degrees Normal sinus rhythm Left axis deviation Right bundle branch block Abnormal ECG No previous ECGs available Confirmed by Brandin Reed ([id number]) on 05/21 2:09:01 PM Performing Organization Address City/State/Zipcode Phone Number [employer] [facility]ABBI after 06/04/2019 Insurance Payer Benefit Plan Subscriber ID Effective Dates Phone Address Type / Group BLUE BCBS HMO [id number] 2017-Presen [phone] [address]MO/POS CROSS/BLUE BLUE[id number] [place] [address] CDC REVIEW CDC REVIEW [id number] 2020-Pres [place] [address] Advance Directives For more information, please contact: [phone] Code Status Date Activated Date Inactivated Comments Full Code 05/29/2020 5:42 AM 05/30/2020 6:35 PM This code status was determined by: Patient
--- OUTSIDE RECORDS SUMMARY | 2020-06-04 08:29 | XMS REPORT ---
:1955 Author Organization [facility] Address [address] [place] [address] Care Team Providers Name Role Phone Mccracken Unavailable [phone] PROBLEMS Type Condition ICD9-CM [id number] Onset Condition SNOMED Code Notes Code Code Dates Status Problem Diabetes E11.9 Active 959556379 Problem Obesity E66.9 Active 018822965 Problem Stented coronary Z95.5 Active 993998817 artery Problem Hyperlipidemia E78.5 Active 88570986 Problem Type 2 diabetes E11.51 Active 968661914 mellitus with diabetic peripheral angiopathy without gangrene Problem Depression with F41.8 Active 007380337 anxiety Problem Allergic arthritis M13.89 Active 13861934 Problem Memory changes R41.3 Active 843642111 Problem 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 467614614 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 Problem Pain in left hip M25.552 Active 19754959 Problem Pain in right hip M25.551 Active 52707812 Problem Bilateral carotid I65.23 Active 037483162 artery stenosis Problem Intermittent I73.9 Active 51887770 claudication Problem CAD (coronary I25.10 Active 59377054 artery disease) Problem Occlusion and I65.29 Active 619799024 stenosis of unspecified carotid artery Problem Unspecified I70.209 Active 937163712226304 atherosclerosis of [place] arteries of extremities, unspecified extremity Problem Peripheral I73.9 Active 144766223 vascular disease Problem HTN (hypertension) I10 Active 75260061 Problem Tremor R25.1 Active 48875780 Problem Multiple joint M25.50 Active 71010835 pain Problem Lower extremity R60.0 Active 379921066 edema Problem PUD (peptic ulcer K27.9 Active 40469531 disease) ALLERGIES Allergen (clinical drug Drug/Non Drug Allergy Reaction Allergy Type Onset Date Status ingredient) documented on EMR pregabalin Lyrica([facility] Unknown Drug Allergy Active Code:[address]-29) ciprofloxacin Cipro([facility] Unknown Drug Allergy Active Code:[address]-63) ENCOUNTERS from 1955 to 2020-05-13 Encounter Location Date Provider Diagnosis [facility] [address] [place], Sophia Mccracken HTN (hypertension) I10 ; Family [facility] [address], Type 2 [place] [address] with diabetic peripheral angiopathy with out gangrene E11.51 ; Hyperlipidemia E78.5 ; Bilateral carot id artery stenosis I65.23 ; CAD (coronary arter y disease) I25.10 ; Periph eral vascular diseas e I73.9 ; Intermittent cl audication I73.9 ; PUD (pe ptic ulcer disease) K27.9 ; Stented coronary artery Z95.5 ; Unspecified atherosclerosis of [place] arteries of ext remities, unspecified ext remity I70.209 ; Lower extremity edema R60.0 and Need for 23-polyvalent pneumococcal polysaccharide vaccine Z23 IMMUNIZATIONS Vaccine Route Administration Date Status Pneumovax (PPSV23) IM Intramuscular May 09, 2020 Administered Afluria IM Intramuscular May 10, 2019 Administered Kenalog (Triamcinolone) IM Intramuscular February 05, 2019 Adminis tered SOCIAL HISTORY Tobacco Use: Social History Observation Description Date Details (start date - stop date) Never Smoker Sex Assigned At : Social History Observation Description Sex Assigned At Unknown PHQ9 Question Answer Notes Little interest or pleasure in doing things More than half t he days Feeling down, depressed, or hopeless Not at all Trouble falling or staying asleep or sleeping too much More than half the days Feeling tired or having little energy More than half the day s Poor appetite or overeating Not at all Feeling bad about yourself, or that you are a failure, Not a t all or have let yourself or your family down Trouble concentrating on things, such as reading the Not at all newspaper or watching television Moving or speaking so slowly that other people could Not at all have noticed; or the opposite, being so fidgety or restless that you have been moving around a lot more than usual Total Score 6 Interpretation Minimal Depression Thoughts that you would be better off or of Not at all hurting yourself in some way Tobacco Use/Smoking Question Answer Notes Are you a never smoker REASON FOR REFERRAL No Information VITAL SIGNS Height 71.00 in Apr, Weight 260.8 lbs Apr, Temperature 97.2 degrees Fahrenheit Apr, BMI 36.37 kg/m2 Apr, Oximetry 97 % Apr, Respiratory Rate 16 /min Apr, Blood pressure systolic 145 mm Hg Apr, Blood pressure diastolic 86 mm Hg Apr, MEDICATIONS Medication SIG (Take, Route, Frequency, Start Date End Date Status Duration) Hydrochlorothiazide 25 MG 1 tablet in the morning Active Orally Once a day for 90 days Cozaar 100 MG 1 tablet Orally Once a day in Active AM for 90 day Dexilant 60 MG 1 capsule Orally Once a day Active for 30 day(s) Zyrtec Allergy 10 MG 1 tablet Orally Once a day Active Glyburide-Metformin 5-500 MG 1 tablet with a meal Orally Active twice a day for 90 day(s) Lantus SoloStar 100 UNIT/ML 35 units daily as directed Active Subcutaneous for 90 days Trulicity 1.5 MG/0.5ML 1.5 mg Subcutaneous once a Active week for 90 days Plavix 75 MG 1 tablet Orally Once a day A ctive for 90 days Losartan Potassium 100 MG TAKE 1 TABLET BY MOUTH ONCE A Active DAY for 90 Bystolic 20 MG 1 tablet Orally Once a day Active for 90 Hydrochlorothiazide 25 MG TAKE 1 TABLET BY MOUTH EVERY Active DAY IN THE MORNING for 90 Bystolic 20 MG 1 tablet Orally Once a day in Active PM for 90 day Crestor 10 MG TAKE 1 TABLET BY MOUTH ONCE A Active DAY P.O Q day for 90 days Humalog KwikPen 100 UNIT/ML 12 units tid before meals Active Subcutaneous for 90 days Aspir-81 81 MG 1 tablet Orally Once a day Active Cilostazol 100 MG 1 tablet 30 minutes before or Active 2 hours after breakfast and dinner Orally once a day Rosuvastatin Calcium 10MG 1 tablet Orally Once a day Active for 90 days PROCEDURES No Information RESULTS No Results REASON FOR VISIT 6 mo f/u [phone] OUTSIDE , 3 month follow up , Telehealth Visit, DM2, HTN, HLD MEDICAL (GENERAL) HISTORY Type Description Date Medical History HTN (hypertension) Medical History Diabetes Medical History CAD (coronary artery disease) Medical History Hyperlipidemia Medical History Depression with anxiety Medical History Obesity Medical History Stented coronary artery Medical History Peripheral vascular disease Medical History Intermittent claudication Medical History Allergic arthritis Surgical History triple cabg 2010 Surgical History coronary stent intervention Surgical History case airway surgery Surgical History triple bypass 2010 Surgical History triple bypass 2012 Surgical History heart stent 2002 Surgical History heart stent 2012 Surgical History tonsillectomy 1993 Surgical History shoulder rotator cuff 05/2015 Surgical History angogram heart leg 02/2017 Surgical History nostrial polpectomy 12/2015 Surgical History stent rt leg 05/2013 Surgical History rt leg bypass 07/2013 Goals Section No Information Health Concerns No Information MEDICAL EQUIPMENT No Information MENTAL STATUS No Information FUNCTIONAL STATUS No Information ASSESSMENTS Encounter Date Diagnosis Notes Apr, Hyperlipidemia (ICD-10 - E78.5) Apr, Type 2 diabetes mellitus with diabetic p eripheral angiopathy without gangrene (ICD-10 - E11.51) Apr, CAD (coronary artery disease) (ICD-10 - I25.10) Apr, Bilateral carotid artery stenosis (ICD-1 0 - I65.23) Apr, Unspecified atherosclerosis of [place] ar teries of extremities, unspecified extremity (ICD-10 - I70.209) Apr, Stented coronary artery (ICD-10 - Z95.5) Apr, HTN (hypertension) (ICD-10 - I10) Apr, Need for 23-polyvalent pneumococcal poly saccharide vaccine (ICD-10 - Z23) Apr, Lower extremity edema (ICD-10 - R60.0) Apr, Intermittent claudication (ICD-10 - I73. 9) Apr, Peripheral vascular disease (ICD-10 - I7 3.9) Apr, PUD (peptic ulcer disease) (ICD-10 - K27 .9) PLAN OF TREATMENT Medication Medication Name Sig Start Date Stop Date Plavix 75 MG 1 tablet Orally Once a day for 90 days Aspir-81 81 MG 1 tablet Orally Once a day Trulicity 1.5 MG/0.5ML 1.5 mg Subcutaneous once a week for 90 days Hydrochlorothiazide 25 MG 1 tablet in the morning Orally Once a day for 90 days Lantus SoloStar 100 UNIT/ML 35 units daily as directed Subcutaneous for 90 days Cozaar 100 MG 1 tablet Orally Once a day in AM for 90 day Bystolic 20 MG 1 tablet Orally Once a day in PM for 90 day Cilostazol 100 MG 1 tablet 30 minutes before or 2 hours after breakfast and dinner Orally once a day Glyburide-Metformin 5-500 MG 1 tablet with a meal Orally twice a day for 90 day(s) Humalog KwikPen 100 UNIT/ML 12 units tid before meals Subcutaneous for 90 days Dexilant 60 MG 1 capsule Orally Once a day for 30 day(s) Treatment Notes Assessment Notes Clinical Notes HTN (hypertension) Maintian a low salt DASH - stopped amlod ipine 5mg diet, exercise, weight loss daily monito r BP due to and decrease stress swelling recommended. Keep BP log and will review next visit. If blood pressure consistently above 140/90 return to clinic for adjustment of meds. Try to quit smoking if you currently smoke. Decrease caffeine intake if possible.- also cont f/u with cardiology ( ) Type 2 diabetes mellitus with A1C 7.9, 7.8 elevated ( diabetic peripheral angiopathy advised to go back to without gangrene glyburide -metformin ) twice a day as patient decided to go to once a day on his own,advised better to taper down on insulins than medication.need to check BG and BP when dizzy low carb 1800 ADA diet. Avoid sodas, juices and remember portion control. Take your medication as prescribed. Monitor your blood sugar at home as directed and keep a log to bring back with you to your next visit for review. Schedule your annual diabetic eye exam with your eye doctor to screen for diabetic retinopathy. Check your feet daily to make sure you have no open wounds. Hyperlipidemia low fat diet, decrease fast food and fried foods. Increase fruit and vegetable intake. exercise as tolerated 30minutes per day at least 3 days a week. May take fish oil 1000mg twice daily to help increase good cholesterol (HDL). Bilateral carotid artery 05/06/20 cardiac cath shows stenosis moderate steonsis of right carotid artery 50-69% stenosis will need treatmentleft shows mild stenosis. CAD (coronary artery disease) low fat diet, decrease fast food and fried foods. Increase fruit and vegetable intake. exercise as tolerated 30minutes per day at least 3 days a week. May take fish oil 1000mg twice daily to help increase good cholesterol (HDL). low fat diet, decrease fast food and fried foods. Increase fruit and vegetable intake. exercise as tolerated 30minutes per day at least 3 days a week. May take fish oil 1000mg twice daily to help increase good cholesterol (HDL). Peripheral vascular disease continue to stay active as possible as tolerated as patient has PAD/ stent in lower extremity and increased physical activity as tolerated will help produce collateral circulation despite some blockage.-continue asa, plavix and cilostazol.- continue f/u with cardiology Dr>Kristy and will need referral to cardiovascular sugeon Intermittent claudication continue to stay as active as possible as tolerated to help produce collateral circulation PUD (peptic ulcer disease) Gerd/PUD- avoid trigger foods including spicy, oily, carbonated drinks, citrus. Do not lay down immediately after eating-wait at least 2 hours, elevate pillow. Eat smaller meals and weight loss recommended for obese patients. Avoid wearing tight clothing. Gerd/PUD- avoid trigger foods including spicy, oily, carbonated drinks, citrus. Do not lay down immediately after eating-wait at least 2 hours, elevate pillow. Eat smaller meals and weight loss recommended for obese patients. Avoid wearing tight clothing. Stented coronary artery low fat diet, diet and exercise weightloss low fat diet, diet and exercise weightloss Unspecified atherosclerosis of low fat diet, decrease fast [place] arteries of extremities, food and fried foods. unspecified extremity Increase fruit and vegetable intake. exercise as tolerated 30minutes per day at least 3 days a week. cont f/u w/ cardiology Need for 23-polyvalent given due to having diabetes pneumococcal polysaccharide vaccine Lower extremity edema maintain low salt diet, -- stop amlodi pine due to elevate feet above chest swelling level when possible, recommend compression stokings during day. take meds as prescribed. Treatment Notes Test Name Order Date COMPREHENSIVE METABOLIC PANEL(CMP) 2020-05-13 LIPID PANEL WITH REFLEX TO DIRECT LDL 2020-05-13 CBC (INCLUDES DIFF/PLT) 2020-05-13 MICROALBUMIN, RANDOM URINE (W/CREATININE) 2020-05-13 HEMOGLOBIN A1C WITH MPG 2020-05-13 Next Appt Details 3 Months Reason: Provider Name:Sophia Mccracken, 2020-08-12 08:0 0:00 AM, [address], [place], [address], Insurance Providers Payer Name Payer Payer Insured Name Patient Coverage Covera ge End Address Phone Relationship to Start Date Mike e Insured [employer] [phone] Alexander Walker [id number] and Luke [id number] [facility] [id number]
--- OUTSIDE RECORDS SUMMARY | 2020-06-04 08:29 | XMS REPORT | Continuity of Care Document ---
:1955 Author Organization [facility] t Address [address] [place] [address] Care Team Providers Name Role Phone Elvi Mccracken DO Primary Care Physician Barbara Hudson MD Attending Clinician Ashwin Lara MD Attending Clinician Joseph Almonte MD Attending Clinician BARBARA HUDSON Attending Clinician Unavailable Zoltan Sarah RN Attending Clinician Unavailable Mina WHITTINGTON Attending Clinician Jose A WILLS Attending Clinician Chioma DELGADO Attending Clinician Unavailable Mayo WILLS Attending Clinician Mayo WILLS Attending Clinician BARBARA HUDSON Admitting Clinician Unavailable Payers Payer Name Policy Type Policy Effective Date Expiration Date Sour ce Number BLUE CROSS/BLUE [id number] [facility] BLUE/ESSENTIALSxxxxxx [facility] ter [id number] [id number], [place] [address]RNR/POS CDC REVIEWCDC [id number] [address] [facility] [id number]/[id number] 00:00:00 - M silverical 020-[facility] [place] [address] [employer] [place] [id number] 2017 [place] AREA/HMO BLUE 0 00:00:00 Scientologist [id number] 2017-PresentHMO Problems Condition Condition Condition Status Onset Resolution Last Treating Co mments Source Name Details Category Date Date Treatment Clinician Date Carotid Carotid Disease Active 2019-[address] [facility] artery artery 0-15 kes - disease disease 00:00: Medical 00 Center Preoperati Preoperati Disease Active 2019-[address] ve ve 0-15 [facility] - evaluation evaluation 00:00: Me dical to rule to rule 00 Center out out surgical surgical contraindi contraindi cation cation Coronary Coronary Disease Active [facility] artery [facility] disease [facility] Diabetes Diabetes Disease Active [facility] mellitus mellitus [facility] Hypertensi Hypertensi Disease Active [facility] on on [facility] Hyperlipid Hyperlipid Disease Active [facility] emia emia [facility] Allergies, Adverse Reactions, Alerts Allergy Allergy Status Severity Reaction(s) Onset Inactive Treating Comm ents Source Name Type Date Date Clinician Ciproflo Propensi Active [facility] xacin ty to 30 [facility] - adverse 00:00: Medical reaction 00 Center s Latex Propensi Active [facility] ty to 9-30 [facility] - adverse 00:00: Medical reaction 00 Center s Pregabal Propensi Active Other [facility] in ty to 4-03 reaction( [facility] - adverse 00:00: s): Info Medical reaction 00 Not Center s Available , Unknown Ciproflo Propensi Active Other (See hallucina Fritz xacin ty to Comments) 03-07 tion Methodi adverse 00:00: st reaction 00 s to drug Latex Propensi Active Rash Fritz ty to 03-07 Methodi adverse 00:00: st reaction 00 s to drug Morphine Propensi Active Other (See Hallucina [place] ty to Comments) 03-07 tion Methodi adverse 00:00: st reaction 00 s to drug Adhesive Propensi Active Rash 2010-[address] [facility] ty to 09-01 [facility] - adverse 00:00: Medical reaction 00 Center s Lyrica Adverse Active Info Not [facility] Reaction Available [facility] Clinics Cipro Adverse Active Info Not [facility] Reaction Available [facility] Family History Family Member Diagnosis Comments Start Date Stop Date Source Natural father Heart disease Fritz Scientologist Natural father Heart attack [facility] Natural father Hypertension [facility] L [facility] Natural brother Heart attack [facility] Natural brother Hypertension [facility] Natural mother Stroke [facility] Social History Social Habit Start Date Stop Date Quantity Comments Source History of tobacco Current smoker [facility] use [facility] Center History SDOH [facility] - Alcohol Std Drinks [facility] History SDOH [facility] - Alcohol Binge Medical Angelica ter Sex Assigned At [facility] St Chelle kes [facility] Exposure to Not sure [facility] - SARS-CoV-2 (event) [facility] Cigarettes smoked 2020-05-29 2020-05-[address] [facility] - current (pack per 00:00:00 00:00:00 Medical Center day) - Reported Cigarette 2020-05-29 2020-05-[address] [facility] - pack-years 00:00:00 00:00:00 [facility] Tobacco use and 2020-05-29 2020-05-[address] Chel[facility] kes - exposure 00:00:00 00:00:00 [facility] Alcohol intake 2020-05-29 2020-05-29 Current drinker [facility] - 00:00:00 00:00:00 of alcohol Medical Center (finding) History SDOH 2020-05-14 2020-05-[address] [facility] - Alcohol Frequency 00:00:00 00:00:00 [facility] Tobacco Comment 2017-03-07 2017-03-07 quit Lam Verdugo ethodist 00:00:00 00:00:00 Smoking Status Start Date Stop Date Source Former smoker 2020-05-29 00:00:00 2020-05-29 00:00:[address] [facility] Medications Ordered Filled Start Stop Current Ordering Indication Dosage Frequency Signature Comments Components Source Medication Medication Date Date Medication? Clinician (SIG) Name Name insulin 2019-08 Yes 35U QD Inject 35 [facility] glargine 0-16 Units [facility]ukes - (LANTUS) 16:35: subcutaneo Med ical 100 unit/mL 37 usly Center injection nightly Use as directed . insulin 2019-08 Yes 14U Inject 14 [facility] t lispro 0-16 Units [facility]ukes - (HUMALOG) 16:35: subcutaneo Me dical 100 unit/mL 37 usly 3 Center InPn (three) times daily before meals . glyBURIDE-m 2019-08 Yes 1{tbl} Take [address] etFORMIN 0-16 tablet by [facility]ukes - (GLUCOVANCE 16:35: mouth 2 Med ical ) 5-500 mg 37 (two) Center per tablet times daily with breakfast and dinner . cetirizine 2019-08 Yes 10mg QD Take [address] (ZYRTEC) 10 0-16 by mouth Luke s - MG tablet 16:35: daily. Medica l 37 Center aspirin 81 2019-08 Yes 81mg QD Take [address] MG EC 0-16 by mouth [facility]ukes - tablet 16:35: daily. Medical 37 Center amoxicillin 2019-08 2020- No Q.5D 2 (two) [facility] -clavulanat 0-10 10-16 times [facility]ukes - e 00:00: 00:00 daily. Medical (AUGMENTIN) 00 :00 Center 875-125 mg per tablet TRULICITY Yes 1.5mg Q7D 1.[address] [facility] 1.5 mg/0.5 9-21 Subconjunc Kathryn es - mL PnIj 00:00: tival Medical 00 route once Center a week . DULoxetine Yes 60mg QD Take [address] (CYMBALTA) 9-21 by mouth [facility]ukes - 30 MG 00:00: nightly . Medical capsule 00 Center rosuvastati Yes 10mg QD Take [address] n (CRESTOR) 9-21 by mouth Luke s - 10 MG 00:00: daily . Medical tablet 00 Center clopidogreL Yes 75mg QD Take [address] (PLAVIX) 75 9-18 by mouth Luke s - mg tablet 00:00: daily . Medic al 00 [place] FOLBEE 2020-0 Yes 1{tbl} QD Take [address] 2.5-25-1 mg 8-11 tablet by Kathryn es - Tab tablet 00:00: mouth Medica l 00 daily. [place] DEXILANT 60 2019-0 Yes 1{capsu QD Take [address] mg capsule 8-07 le} capsule by Kathryn es - 00:00: mouth Medical 00 daily. [place] hydroCHLORO 2019-0 Yes 25mg QD Take [address] thiazide 7-07 by mouth [facility]ukes - (HYDRODIURI 00:00: daily . Med ical L) 25 MG 00 [place] tablet losartan 2019-0 Yes 100mg QD Take [address] (COZAAR) 7-07 mg by Lukes - 100 MG 00:00: mouth Medical tablet 00 daily . [place] BYSTOLIC 20 2019-0 Yes 20mg QD Take [address] mg Tab 7-07 by mouth [facility]ukes - 00:00: daily . Medical 00 [place] ibuprofen 2019-0 Yes 600mg Q6H Take [address] (ADVIL) 600 6-26 mg by Methodi MG tablet 10:58: mouth st 03 every 6 (six) hours as needed. diazePAM 2020- No 5mg Q6H Take 5 mg Rito ston (VALIUM) 5 6-26 06-26 by mouth Meth messi MG tablet 10:58: 00:[address] 03 :00 (six) hours as needed. DULoxetine 2019- Yes Paresthesia Take 2 Fritz (Cymbalta) 6-26 tabs at Method i 30 MG 00:00: night x 1 st capsule 00 month, then increase to 3 tabs at night and continue DULoxetine 2020- No Paresthesia 30mg QD Take 1 Fritz (Cymbalta) 4-21 06-26 capsule Metho di 30 MG 00:00: 00:00 ([address] capsule 00 :00 total) by mouth daily. folic 2019-0 Yes Bilateral 1{tbl} QD Take 1 Rito ston acid-vit 2-12 carpal tablet by Meth messi B6-vit B12 00:00: tunnel mouth st (FOLBEE) 00 syndrome daily. 2.5-25-1 mg tablet memantine 2020- No Memory loss 10mg Q.5D Take 1 Fritz (NAMENDA) 09-26 or tablet (10 Met hodi 10 MG 00:00: 23:59 impairment mg total) st tablet 00 :00 by mouth 2 (two) times a day. DULoxetine 2019- No Paresthesia 30mg QD Take 1 Fritz (CYMBALTA) 09-26 capsule Metho di 30 MG 00:00: 00:00 ([address] capsule 00 :00 total) by mouth daily. memantine 2019- No Memory loss Wk 1: 5 mg Fritz (NAMENDA) 5 09-2617 or at night Met hodi MG tablet [...] 7 days. sundays INSULIN 2018-08 Yes 15U [id number] Inject 15 Fritz LISPRO 0-31 [id number] Units Method i (HUMALOG 15:24: 3D under [...] QD Take 1 Fritz (ARICEPT) 5 0-18 -12 or tablet (5 Me thodi MG tablet 00:00: 00:00 impairment mg total) st 00 :00 by mouth nightly. donepezil 2018-08- No Memory loss 10mg QD Take 1 Fritz (ARICEPT) 0-18 02-12 or tablet (10 Met hodi 10 MG 00:00: 00:00 impairment mg total) st tablet 00 :00 by mouth nightly. hydroCHLORO Yes 25mg QD Take 25 mg Fritz thiazide 9-26 by mouth Methodi (HYDRODIURI 00:00: every st L) 25 MG 00 morning. tablet pantoprazol 2019- No 40mg Q.5D Take 40 mg Fritz e 8-13 12 by mouth 2 Methodi (PROTONIX) 00:00: 00:00 (two) st 40 MG EC 00 :00 times a tablet day. Crestor Ataor Yes Na Mccracken TAKE [address] TABLET BY [facility]ukes - MOUTH ONCE Memoria A DAY l Outpati ent Clinics Immunizations Ordered Filled Immunization Date Status Comments [facility] e Immunization Name Name Jackeline Viveros 2019-05-[address] [facility] - 00[facility]00:00 [facility] Clinics Vital Signs Vital Name Observation Time Observation Value Comments Source Systolic blood 2020-05-30 15:00:00 161 mm[Hg] [facility] Diastolic blood 2020-05-30 15:00:00 70 mm[Hg] [facility] S [facility] Heart rate 2020-05-30 15:00:00 65 /min [facility] Body temperature 2020-05-30 15:00:00 36.22 Penny [facility] Respiratory rate 2020-05-30 15:00:00 16 /min [facility] Oxygen saturation in 2020-05-30 15:00:00 97 /min [facility] - Arterial blood by Medical Ce nter Pulse oximetry Body height 2020-05-29 05:42:00 180.3 cm [facility] Body weight 2020-05-29 05:42:00 115.713 kg [facility] BMI 2020-05-29 05:42:00 35.58 kg/m2 [facility] Systolic blood 2020-02-08 10:56:00 150 mm[Hg] [place] Scientologist pressure Diastolic blood 2020-02-08 10:56:00 66 mm[Hg] [place] Scientologist pressure Heart rate 2020-02-08 10:56:00 66 /min Fritz Scientologist Body height 2020-02-08 10:56:00 180.3 cm Fritz Scientologist Body weight 2020-02-08 10:56:00 115.667 kg Fritz Scientologist BMI 2020-02-08 10:56:00 35.57 kg/m2 Fritz Scientologist Oxygen saturation in 2019-06-14 17:15:00 96 /min Fritz Scientologist Arterial blood by Pulse oximetry Respiratory rate 2019-06-14 16:15:00 18 /min [place] Scient[employer] Body temperature 2019-06-14 15:16:00 36.11 Penny [place] Scientologist Procedures Procedure Date / Time Performing Clinician Source Performed POCT-GLUCOSE METER 2020-05-30 10:54:00 Ad Hudson [facility] XR CHEST 1 VIEW 2020-05-30 09:20:00 Raven Rojo [facility] es - PORTABLE/BEDSIDE [facility] POCT-GLUCOSE METER 2020-05-30 07:51:00 Liz [facility] CBC W/PLT COUNT & AUTO 2020-05-30 07:06:00 Anthony Olivia [facility] BASIC METABOLIC PANEL 2020-05-30 05:43:00 Ne [place] [id number]) [facility] CALCIUM, IONIZED 2020-05-30 05:43:00 Ne [facility] PHOSPHORUS 2020-05-30 05:43:00 Ne [facility] MAGNESIUM 2020-05-30 05:43:00 [facility] TSH[facility]FREE T4 IF INDICATED 2020-05-30 05:43:00 [facility] HEMOGLOBIN A1C 2020-05-30 05:43:00 Ne [facility] POCT-GLUCOSE METER 2020-05-29 22:04:00 [facility] POCT-GLUCOSE METER 2020-05-29 16:44:00 [facility] POCT-GLUCOSE METER 2020-05-29 12:29:00 [facility] 2020-05-29 12:28:00 [facility]OLIC PANEL 2020-05-29 12:28:00 [facility] CALCIUM, IONIZED 2020-05-29 10:11:09 Bryan Lara [facility] BLOOD GAS, ARTERIAL 2020-05-29 10:11:09 Bryan Lara [facility] SODIUM NA-STAT LAB 2020-05-29 10:11:09 Bryan Lara [facility] POTASSIUM-STAT LAB 2020-05-29 10:11:09 Bryan Lara [facility] GLUCOSE-STAT LAB 2020-05-29 10:11:09 Bryan Lara [facility] HGB/HCT (H&H) - STAT LAB 2020-05-29 10:11:09 Bryan Lara [facility] ENDARTERECTOMY,CAROTID 2020-05-29 08:23:[address] [facility] ABORH, MANUAL 2020-05-29 06:28:00 Lulu Madera [facility] POCT-GLUCOSE METER 2020-05-29 05:50:00 Liz [facility] PLATELET AGGREGATION: 2020-05-28 10:34:00 Liz [facility] - FUNCTION SCREEN [facility] SARS-COV2/RT-PCR ([facility] & 2020-05-28 10:15:00 Liz [facility] - REF LABS) [facility] TRANSFUSION SERVICE 2020-05-22 18:05:49 Provider, [facility] - REPORT - SCAN [facility] BASIC METABOLIC PANEL 2020-05-21 11:01:00 Liz [facility] - (7) [facility] PROTHROMBIN TIME/INR 2020-05-21 11:01:00 Liz [facility] PLATELET AGGREGATION: 2020-05-21 11:01:00 Liz [facility] - FUNCTION SCREEN [facility] TYPE AND SCREEN, 2020-05-21 11:01:00 Liz [facility] s - AUTOMATED [facility] CBC W/PLT COUNT & AUTO 2020-05-21 11:01:00 Liz [facility] - DIFFERENTIAL [facility] SARS-COV2/RT-PCR ([facility] & 2020-05-21 10:38:00 Liz [facility] - REF LABS) [facility] ECG 12-LEAD 2020-05-21 10:32:22 Liz [facility] MRI LUMBAR SPINE WO 2020-03-13 13:10:54 Bronwyn Aguirre Scientologist CONTRAST MRI THORACIC SPINE WO 2020-03-13 12:55:16 Bronwyn Aguirre Scientologist CONTRAST MRI CERVICAL SPINE WO 2020-03-13 12:29:12 Bronwyn Aguirre Scientologist CONTRAST PET BRAIN METABOLIC EVAL 2020-03-13 10:26:19 Jose A Bronwyn Rito hobbs Scientologist POC GLUCOSE 2020-03-13 08:15:00 Bronwyn Aguirre Meth odist POC GLUCOSE 2019-06-14 13:53:00 Troy Huber Meth odist IR ABDOMINAL ARTERIAL 2019-06-14 13:39:00 Troy Huber Scientologist ANGIOPLASTY/STENT PLACEMENT POC GLUCOSE 2019-06-14 11:30:00 Troy Huber Meth odist Plan of Care Planned Activity Planned Date Details Comments Source Future Scheduled 2020-11-[address] [facility] kes - Test 00:00:00 [facility] (procedure) [code = 60205423] Future Scheduled 2020-04-15 INFLUENZA VACCINE (#1) [facility] - Test 00:00:00 [code = INFLUENZA Medical Ce nter VACCINE (#1)] Future Scheduled 2020-03-15 INFLUENZA VACCINE [place] Scientologist Test 00:00:00 [code = INFLUENZA VACCINE] Future Scheduled 2007-11-15 COLONOSCOPY SCREENING [place] [facility] Test 00:00:00 [code = COLONOSCOPY SCREENING] Future Scheduled 2007-11-15 SHINGLES VACCINES (#1) [place] Scient[facility] Test 00:00:00 [code = SHINGLES VACCINES (#1)] Future Scheduled [address] [facility] - Test 00:00:00 (procedure) [code = Medical Center 11878379] Future Scheduled 1967-11-15 DIABETES: RETINAL EYE [place] Scient[facility] Test 00:00:00 EXAM [code = DIABETES: RETINAL EYE EXAM] Future Scheduled 1967-11-15 DIABETIC FOOT EXAM [place] Scientologist Test 00:00:00 [code = DIABETIC FOOT EXAM] Future Scheduled 1967-11-15 URINE MICROALBUMIN [place] Scientologist Test 00:00:00 [code = URINE MICROALBUMIN] Future Scheduled 1967-11-[address] DIABETIC EYE EXAM [facility] - Test 00:00:00 [code = DIABETIC EYE Medical Center EXAM] Future Scheduled 1967-11-[address] Kathryn es - Test 00:00:00 examination Medical Center (regime/therapy) [code = 830246765] Future Scheduled 1967-11-15 Urine screening for [facility] - Test 00:00:00 protein (procedure) Medical Center [code = 724226973] Future Scheduled [address] Kathryn es - Test 00:00:00 malignant neoplasm of Medica l Center colon (procedure) [code = 838268362] Encounters Start End Encounter Admission Attending Care Care Encounter Source Date/Time Date/Time Type Type Clinicians Facility Department ID 2020-05-22 2020-05-22 [facility] [id number] 2020-05-22 2020-05-22 [facility] [id number] 2020-05-20 2020[facility]05-20 [facility] [id number] 2020-05-12 2020-05-12 [facility] [id number] [facility] 2020-05-09 2020-05-09 [facility] [id number] [facility] 2020-05-08 2020-05-08 [facility] [id number] 2020-04-22 2020-04-22 Outpatient BRONWYN AGUIRRE [facility] [id number] [place] 00:00:00 00:00:[address] 2020-03-13 2020-03-13 Outpatient BRONWYN AGUIRRE [facility] [id number] [place] 00:00:00 00:00:[address] 2020-03-13 2020-03-13 Outpatient BRONWYN AGUIRRE [facility] [id number] [place] 00:00:00 00:00:[address] 2020-03-13 2020-03-13 Outpatient BRONWYN AGUIRRE [facility] [id number] [place] 00:00:00 00:00:[address] 2020-03-13 2020-03-13 Outpatient BRONWYN AGUIRRE [facility] [id number] [place] 00:00:00 00:00:[address] 2020-02-25 2020-02-25 [facility] [id number] 10:06:00 10:06:00 t Chronicity [facility] Medicine Medicine Outpati ent Clinics 2020-02-08 2020-02-08 Outpatient BRONWYN AGUIRRE [facility] [id number] [place] 00:00:00 00:00:[address] 2020-01-31 2020-01-31 [facility] [id number] 16:12:00 16:12:00 [facility] Maimai [facility] Medicine Outpati ent Clinics 2020-01-24 2020-01-24 [facility] [id number] 14:27:00 14:27:00 t Chronicity [facility] Medicine Outpati ent Clinics 2020-01-14 2020-01-14 [facility] [id number] 09:43:00 09:43:00 t Chronicity [facility] Medicine Outpati ent Clinics 2019-12-06 2019-12-06 [facility] [id number] 10:24:00 10:24:00 t [employer] [facility] Medicine Medicine Outpati ent Clinics 2019-12-04 2019-12-04 Outpatient BRONWYN AGUIRRE [facility] [id number] [place] 00:00:00 00:00:[address] 2019-11-26 2019-11-26 [facility] [id number] 11:11:00 11:11:00 t Chronicity [facility] Medicine Outpati ent Clinics 2019-11-16 2019-11-16 [facility] [id number] 08:40:00 08:40:00 t Chronicity [facility] Medicine Outpati ent Clinics 2019-10-18 2019-10-18 [facility] [id number] 14:21:00 14:21:00 [place] [employer]S [facility] - Drive [facility] Medicine Outpati ent Clinics 2019-08-16 2019-08-16 [facility] [id number] 08:00:00 08:00:00 [place] [employer] s - Drive [facility] Medicine Outpati ent Clinics 2019-06-14 2019-06-14 Outpatient ATTAR, [facility] [id number] [address] [place] [address] 00:00:00 00:00:00 [facility] 2019-05-28 2019-05-28 [facility] [id number] 16:12:00 16:12:00 [place] Restorando s - Drive [facility] Medicine Outpati ent Clinics 2019-05-10 2019-05-10 [facility] [id number] 15:12:00 15:12:00 [place] [employer] s - Drive [facility] Medicine Outpati ent Clinics 2019-05-10 2019-05-10 [facility] [id number] 08:20:00 08:20:00 [place] [employer] [facility] - Proacta [facility] Medicine Outpati ent Clinics 2019-05-04 2019-05-04 Hospital Attar, [facility] [id number] 11:30:00 23:59:00 Encounter Troy Toscano [id number] [place] [id number] Tell [id number] 2019-04-26 2019-04-26 [facility] [id number] 10:03:00 10:03:00 [place] [employer] - Proacta [facility] Medicine Outpati ent Clinics 2019-02-05 2019-02-05 [facility] [id number] 13:55:00 13:55:00 t [place] [employer] - Proacta [facility] Medicine Outpati ent Clinics 2019-02-05 2019-02-05 [facility] [id number] 09:40:00 09:40:[address] Luke s - Drive [facility] Medicine l Medicine Outpati ent Clinics 2018-12-15 2018-12-15 [facility] [id number] 14:33:00 14:33:[address] Luke s - Drive [facility] l Medicine Outpati ent Clinics 2018-12-06 2018-12-06 [facility] [id number] 08:45:00 08:45:00 [place] [employer] Luke s - Drive [facility] Medicine l Medicine Outpati ent Clinics 2018-12-06 2018-12-06 [facility] [id number] 08:23:00 08:23:00 [place] [employer] S[facility]S s - Drive [facility] l Medicine Outpati ent Clinics 2018-11-22 2018-11-22 [facility] [id number] 09:23:00 09:23:00 [place] [employer] S[employer]S s - Drive [facility] l Medicine Outpati ent Clinics 2018-11-21 2018-11-21 [facility] [id number] 10:16:00 10:16:00 [place] [employer] S[employer]S s - Drive [facility] Medicine l Medicine Outpati ent Clinics 2018-11-10 2018-11-10 [facility] [id number] 08:15:00 08:15:00 [place] [employer] S[employer]S s - Drive [facility] Medicine l Medicine Outpati ent Clinics 2018-09-21 2018-09-21 [facility] [id number] 15:00:00 15:00:00 [place] [employer] S.[employer]S s - Drive [facility] Medicine l Medicine Outpati ent Clinics 2018-08-29 2018-08-29 [facility] [id number] 15:57:00 15:57:00 [place] [employer] S.A[employer]S s - Drive [facility] l Medicine Outpati ent Clinics 2018-08-11 2018-08-11 [facility] [id number] 08:30:00 08:30:00 [place] [employer] S[employer]S s - Drive [facility] Medicine Outpati ent Clinics 2018-05-08 2018-05-08 [facility] [id number] 11:56:00 11:56:00 [place] [employer] S.A.S s - Drive [facility] Medicine Outpati ent Clinics 2018-05-04 2018-05-04 [facility] [id number] 10:17:00 10:17:00 t [place] [employer] - Drive [facility] Medicine Outpati ent Clinics 2018-04-28 2018-04-28 [facility] [id number] 09:45:00 09:45:00 t [place] [employer] - Drive [facility] Medicine Outpati ent Clinics 2018-03-15 2018-03-15 [facility] [id number] 09:11:00 09:11:00 t [place] [employer] - Drive [facility] Medicine Outpati ent Clinics 2018-02-14 2018-02-14 [facility] [id number] 08:46:00 08:46:00 t [place] [employer] [facility] Medicine Outpati ent Clinics 2018-01-27 2018-01-27 [facility] [id number] 08:15:00 08:15:00 t [employer] - [employer]act[employer] [facility] [place], [place] Outpati ent Clinics Results Test Description Test Time Test Comments Results Result Comments Source POC-Glucose meter 2020-05-30 11:06:00 Test Item Value Reference Range Interpretation Comme nts POC-Glucose Meter (test code = 267 mg/dL 70-110 H : TESTED AT [facility] 67[address] [facility] 1538) [facility], 7[address]: Occupational Nurse/Techni jaden ID = [id number] for JORGE ACE Lab Interpretation (test code = Abnormal 82229-2) [facility] [id number] 11:06:00 Test Item Value Reference Range Interpretation Comments POC-GLUCOSE METER 267 mg/dL 70-110 H : TESTED A T [facility] 6720 (BEAKER) (test code = BERTMARIAELENA R [facility], 1538) [address]: Occupational Nurse/Techni jaden ID = [id number] for ZA PETERAJORGE RAD, CHEST, 1 VIEW, NON [id number] 10:20:00Reason for exam:- >dyspneaShould this be performed at the bedside?->Yes [facility] : 1955 Sex: MFINAL REPORT CLINICAL HISTORY: dyspnea TECHNIQUE: 1 view of the chest. COMPARISON: None IMPRESSION: There is left lower lung atelectasis. The right lung appears well-aerated. There is no significant pleural fluid. The cardiomediastinal silhouette is magnified by technique with sternotomy wires. Signed: Alexis Rosenbaumort Verified Date/Time: 05/30/2020 10:20:48 Reading Location: [facility] Radiology Reading Room XR chest 1 view portable / bedside 2020-05-30 10:20:00Interface, External Ris In - 05/30/2020 10:22 AM CDTFINAL REPORT CLINICAL HISTORY: dyspnea TECHNIQUE: 1 view of the chest. COMPARISON: None IMPRESSION: There is left lower lung atelectasis. The right lung appears well-aerated. There is no significant pleural fluid. The cardiomediastinal silhouette is magnified by technique with sternotomy wires. Signed: Alexis Rosenbaum MDRtoanortVerified Date/Time: 05/30/2020 10:20:48 Reading Location: [facility] Radiology Reading Room [facility] 2020-05-30 10:08:00 Test Item Value Reference Range Interpretation Comments Hemoglobin A1C (test code 7.4 % 4.3-6.1 H = 4548-4) FAUSTO (test code = FAUSTO) Occupational Nurse ID - ADMIN Lab Interpretation (test Abnormal code = 69946-2) [facility] CampusHEMOGLOBIN [id number] 10:08:00 Test Item Value Reference Range Interpretation Comments HEMOGLOBIN A1C (BEAKER) (test code = 7.4 % 4.3-6.1 H 368) Occupational Nurse ID - ADMINPOCT-GLUCOSE [id number] 08:03:00 Test Item Value Reference Range Interpretation Comments POC-GLUCOSE METER 155 mg/dL 70-110 H : [facility] (BEAKER[place] (test code = [place], 1538) [address]: Occupational Nurse/Techni jaden ID = [id number] for JORGE KRISHNA CBC with platelet count + automated [id number] 07:17:00 Test Item Value Reference Range Interpretation Comments WBC (test code = 6690-2) 9.6 3.5- 10.5 K/L RBC (test code = 789-8) 4.07 4.63- 6.08 M/L L MCHC (test code = 786-4) 32.9 32.3- 36.5 GM/DL L Hematocrit (test code = 4544-3) 37.7 % 40.1-51 L MCV (test code = 787-2) 92.6 fL 79-92.2 H MCH (test code = 785-6) 30.5 pg 25.7-32.2 RDW (test code = 788-0) 13.2 % 11.6-14.4 Platelets (test code = 777-3) 174 150- 450 K/CU MM MPV (test code = 14829-8) 10.9 fL 9.4-12.4 nRBC (test code = 413) 0 0- 0 /100 WBC % Neutros (test code = 429) 75 % % Lymphs (test code = 430) 15 % % Monos (test code = 431) 9 % % Eos (test code = 432) 2 % % Baso (test code = 437) 1 % # Neutros (test code = 670) 7.15 1.78- 5.38 K/L H # Lymphs (test code = 414) 1.39 1.32- 3.57 K/L # Monos (test code = 415) 0.81 0.30- 0.82 K/L # Eos (test code = 416) 0.14 0.04- 0.54 K/L # Baso (test code = 417) 0.07 0.01- 0.08 K/L Immature Granulocytes-Relative 0 % 0-1 (test code = 2801) Lab Interpretation (test code = Abnormal 43585-7) [facility] W/PLT COUNT & AUTO [id number] 07:17:00 Test Item Value Reference Range Interpretation Comments WHITE BLOOD CELL COUNT (BEAKER) 9.6 K/ L 3.5-10.5 (test code = 775) RED BLOOD CELL COUNT (BEAKER) 4.07 M/ L 4.63-6.08 L (test code = 761) HEMOGLOBIN (BEAKER) (test code = 12.4 GM/DL 13.7-17.5 L 410) HEMATOCRIT (BEAKER) (test code = 37.7 % 40.1-51.0 L 411) MEAN CORPUSCULAR VOLUME (BEAKER) 92.6 fL 79.0-92.2 H (test code = 753) MEAN CORPUSCULAR HEMOGLOBIN 30.5 pg 25.7-32.2 (BEAKER) (test code = 751) MEAN CORPUSCULAR HEMOGLOBIN CONC 32.9 GM/DL 32.3-36.5 (BEAKER) (test code = 752) RED CELL DISTRIBUTION WIDTH 13.2 % 11.6-14.4 (BEAKER) (test code = 412) PLATELET COUNT (BEAKER) (test 174 K/CU MM 150-450 code = 756) MEAN PLATELET VOLUME (BEAKER) 10.9 fL 9.4-12.4 (test code = 754) NUCLEATED RED BLOOD CELLS 0 /100 WBC 0-0 (BEAKER) (test code = 413) NEUTROPHILS RELATIVE PERCENT 75 % (BEAKER) (test code = 429) LYMPHOCYTES RELATIVE PERCENT 15 % (BEAKER) (test code = 430) MONOCYTES RELATIVE PERCENT 9 % (BEAKER) (test code = 431) EOSINOPHILS RELATIVE PERCENT 2 % (BEAKER) (test code = 432) BASOPHILS RELATIVE PERCENT 1 % (BEAKER) (test code = 437) NEUTROPHILS ABSOLUTE COUNT 7.15 K/ L 1.78-5.38 H (BEAKER) (test code = 670) LYMPHOCYTES ABSOLUTE COUNT 1.39 K/ L 1.32-3.57 (BEAKER) (test code = 414) MONOCYTES ABSOLUTE COUNT (BEAKER) 0.81 K/ L 0.30-0.82 (test code = 415) EOSINOPHILS ABSOLUTE COUNT 0.14 K/ L 0.04-0.54 (BEAKER) (test code = 416) BASOPHILS ABSOLUTE COUNT (BEAKER) 0.07 K/ L 0.01-0.08 (test code = 417) IMMATURE GRANULOCYTES-RELATIVE 0 % 0-1 PERCENT (BEAKER) (test code = 2801) TSH/Free T4 If [id number] 07:10:00 Test Item Value Reference Range Interpretation Comments TSH (test code = 0.888 0.350- 4.940 uIU/mL 03888-5) FAUSTO (test code = FAUSTO) Occupational Nurse ID - EDASI Lab Interpretation (test Normal code = 75350-9) [facility] CampusTSH/FREE T4 IF [id number] 07:10:00 Test Item Value Reference Range Interpretation Comments THYROID STIMULATING HORMONE 0.888 uIU/mL 0.350-4.940 (BEAKER) (test code = 772) Occupational Nurse ID - EDASIBasic Metabolic [id number] 06:50:00 Test Item Value Reference Range Interpretation Comments Sodium (test code = 137 meq/L 246-061 5232-2) Potassium (test code = 4.1 meq/L 3.5-5.1 2823-3) Chloride (test code = 99 meq/L 98-107 2075-0) CO2 (test code = 29 meq/L 22-29 8-9) BUN (test code = 14 mg/dL 7-21 3094-0) Creatinine (test code 1.07 mg/dL 0.57-1.25 = 2160-0) Glucose (test code = 179 mg/dL 70-105 H 2345-7) Calcium (test code = 9.2 mg/dL 8.4-10.2 36571-6) EGFR (test code = 70 mL/min/1.73 [place] [address]-9) NOT ACCURATE CREATININE CLEARANCE IN PREDICTING GLOMERULAR FILTRATION RATE . ESTIMATED GFR I S NOT APPLICABLE FOR DIALYSIS PATIENTS. FAUSTO (test code = FAUSTO) Occupational Nurse ID - PIAYA L Lab Interpretation Abnormal (test code = 58126-6) [facility] CampusMagnesium2020-10-16 06:50:00 Test Item Value Reference Range Interpretation Comments Magnesium (test code = 1.4 mg/dL 1.6-2.6 L 25665-5) FAUSTO (test code = FAUSTO) Occupational Nurse ID - PIAYA L Lab Interpretation (test Abnormal code = 64029-7) [facility] CampusPhosphorus2020-10-16 06:50:00 Test Item Value Reference Range Interpretation Comments Phosphorus (test code = 3.2 mg/dL 2.3-4.7 2777-1) FAUSTO (test code = FAUSTO) Occupational Nurse ID - PIAYA L Lab Interpretation (test Normal code = 03288-0) [facility] CampusBASIC METABOLIC [id number] 06:50:00 Test Item Value Reference Range Interpretation Comments SODIUM (BEAKER) 137 meq/L 136-145 (test code = 381) POTASSIUM (BEAKER) 4.1 meq/L 3.5-5.1 (test code = 379) CHLORIDE (BEAKER) 99 meq/L 98-107 (test code = 382) CO2 (BEAKER) (test 29 meq/L 22-29 code = 355) BLOOD UREA NITROGEN 14 mg/dL 7-21 (BEAKER) (test code = 354) CREATININE (BEAKER) 1.07 mg/dL 0.57-1.25 (test code = 358) GLUCOSE RANDOM 179 mg/dL 70-105 H (BEAKER) (test code = 652) CALCIUM (BEAKER) 9.2 mg/dL 8.4-10.2 (test code = 697) EGFR (BEAKER) (test 70 mL/min/1.73 ESTIMA OJMAR GFR IS code = 1092) sq m NOT ACCURATE CREATININE CLEARANCE IN PREDICTING GLOMERULAR FILTRATION RATE . ESTIMATED GFR I S NOT APPLICABLE FOR DIALYSIS PATIEN TS. Occupational Nurse ID - PIAYA [id number] 06:50:00 Test Item Value Reference Range Interpretation Comments MAGNESIUM (BEAKER) (test code = 1.4 mg/dL 1.6-2.6 L 627) Occupational Nurse ID - GIO [id number] 06:50:00 Test Item Value Reference Range Interpretation Comments PHOSPHORUS (BEAKER) (test code = 3.2 mg/dL 2.3-4.7 604) Occupational Nurse ID - GIO LCalcium, [id number] 06:29:00 Test Item Value Reference Range Interpretation Comments Calcium, Ion (test code = 1994-3) 1.14 mmol/L 1.12-1.27 pH, Blood (test code = 94217-7) 7.32 [facility], [id number] 06:29:00 Test Item Value Reference Range Interpretation Comments CALCIUM IONIZED (BEAKER) (test 1.14 mmol/L 1.12-1.27 code = 698) PH, BLOOD (BEAKER) (test code = 7.32 1810) POCT-GLUCOSE [id number] 22:18:00 Test Item Value Reference Range Interpretation Comments POC-GLUCOSE METER 199 mg/dL 70-110 H : TESTED A T [facility] 6720 (BEAKER) (test code = [facility], 1538) [address]: Occupational Nurse/Techni jaden ID = [id number] for DECLAN HUMPHRIES SE POCT-GLUCOSE [id number] 16:56:00 Test Item Value Reference Range Interpretation Comments POC-GLUCOSE METER 196 mg/dL 70-110 H : TESTED A T [facility] 6720 (BEAKER) (test code = [facility], 1538) [address]: Occupational Nurse/Techni jaden ID = [id number] for SALLY LI Platelet Aggregation: Function [id number] 14:58:00 Test Item Value Reference Range Interpretation Comments Pathologist: (test code Michael Teran MD = 2622) (electronic signature) Platelets (test code = 210 150- 450 K/CU MM 2656) ADP (test code = 38 % 62-100 L 31643-0) Platelet Rich Plasma 278 200- 300 k/cu mm (test code = 2134) Plt. Function Screen Decreased Interpretation (test aggregation with ADP code = 8833) which indicates platelet dysfunction that may be due to medication effect, uremia, or other platelet function disorders. Clinical correlation is required. FAUSTO (test code = FAUSTO) Platelet Function Screen results may be falsely low with platelet counts<75,000/cu mm.Occupational Nurse ID - [id number] Lab Interpretation (test Abnormal code = 18713-6) [facility] CampusPLATELET AGGREGATION: FUNCTION [id number] 14:58:00 Test Item Value Reference Range Interpretation Comments [id number] Michael Teran MD (BEAKER) (test code = (electronic 2622) signature) PLATELET COUNT AGG 210 K/CU MM 150-450 (BEAKER) (test code = 2656) ADP (BEAKER) (test code 38 % 62-100 L = 4654) PLATELET RICH 278 k/cu mm 200-300 PLASMA(BEAKER) (test code = 2134) PLATELET FUNCTION SCREEN Decreased aggregation INTERPRETATION (BEAKER) with ADP which (test code = 4655) indicates platelet dysfunction that may be due to medication effect, uremia, or other platelet function disorders. Clinical correlation is required. Platelet Function Screen results may be falsely low with platelet counts<75,000/cu mm.Occupational Nurse ID- [id number] METABOLIC [id number] 13:00:00 Test Item Value Reference Range Interpretation Comments SODIUM (BEAKER) 140 meq/L 136-145 (test code = 381) POTASSIUM (BEAKER) 4.5 meq/L 3.5-5.1 (test code = 379) CHLORIDE (BEAKER) 103 meq/L 98-107 (test code = 382) CO2 (BEAKER) (test 29 meq/L 22-29 code = 355) BLOOD UREA NITROGEN 24 mg/dL 7-21 H (BEAKER) (test code = 354) CREATININE (BEAKER) 1.19 mg/dL 0.57-1.25 (test code = 358) GLUCOSE RANDOM 189 mg/dL 70-105 H (BEAKER) (test code = 652) CALCIUM (BEAKER) 8.5 mg/dL 8.4-10.2 (test code = 697) EGFR (BEAKER) (test 62 mL/min/1.73 ESTIMA JOMAR GFR IS code = 1092) sq m NOT ACCURATE CREATININE CLEARANCE IN PREDICTING GLOMERULAR FILTRATION RATE . ESTIMATED GFR I S NOT APPLICABLE FOR DIALYSIS PATIEN TS. Occupational Nurse ID - AJAY MPOCT-GLUCOSE [id number] 12:42:00 Test Item Value Reference Range Interpretation Comments POC-GLUCOSE METER 199 mg/dL 70-110 H : TESTED A T [facility] 6720 (BEAKER) (test code = [place], 1538) [address]: Occupational Nurse/Techni jaden ID = [id number] for CLARISSE TAPIA CBC (Hemogram only)2020-05-29 12:38:00 Test Item Value Reference Range Interpretation Comments WBC (test code = 6690-2) 8.1 3.5- 10.5 K/L RBC (test code = 789-8) 3.96 4.63- 6.08 M/L L MCHC (test code = 786-4) 32.6 32.3- 36.5 GM/DL L Hematocrit (test code = 4544-3) 36.5 % 40.1-51 L MCV (test code = 787-2) 92.2 fL 79-92.2 MCH (test code = 785-6) 30.1 pg 25.7-32.2 RDW (test code = 788-0) 13.2 % 11.6-14.4 Platelets (test code = 777-3) 173 150- 450 K/CU MM MPV (test code = 46582-1) 10.6 fL 9.4-12.4 nRBC (test code = 413) 0 0- 0 /100 WBC Lab Interpretation (test code = Abnormal 78685-1) [facility] CampusCBC (HEMOGRAM ONLY)2020-05-29 12:38:00 Test Item Value Reference Range Interpretation Comments WHITE BLOOD CELL COUNT (BEAKER) 8.1 K/ L 3.5-10.5 (test code = 775) RED BLOOD CELL COUNT (BEAKER) 3.96 M/ L 4.63-6.08 L (test code = 761) HEMOGLOBIN (BEAKER) (test code = 11.9 GM/DL 13.7-17.5 L 410) HEMATOCRIT (BEAKER) (test code = 36.5 % 40.1-51.0 L 411) MEAN CORPUSCULAR VOLUME (BEAKER) 92.2 fL 79.0-92.2 (test code = 753) MEAN CORPUSCULAR HEMOGLOBIN 30.1 pg 25.7-32.2 (BEAKER) (test code = 751) MEAN CORPUSCULAR HEMOGLOBIN CONC 32.6 GM/DL 32.3-36.5 (BEAKER) (test code = 752) RED CELL DISTRIBUTION WIDTH 13.2 % 11.6-14.4 (BEAKER) (test code = 412) PLATELET COUNT (BEAKER) (test 173 K/CU MM 150-450 code = 756) MEAN PLATELET VOLUME (BEAKER) 10.6 fL 9.4-12.4 (test code = 754) NUCLEATED RED BLOOD CELLS 0 /100 WBC 0-0 (BEAKER) (test code = 413) Blood gas, [id number] 10:20:00 Test Item Value Reference Range Interpretation Comments pH, Arterial (test code = 2744-1) 7.44 7.35-7.45 pCO2, Arterial (test code = 40 35- 45 mm Hg 2019-03) pO2, Arterial (test code = 2703-7) 334 80- 90 mm Hg H O2 Sat, Arterial (test code = 99.8 % 96-97 H 2707-6) HCO3, Arterial (test code = 26 mmol/L 21-29 1959-4) Base Excess, Arterial (test code = 1.8 mmol/L -2-3 1925-7) Patient Temperature (test code = 36.5 8310-5) FIO2 (test code = 1819) 100 Lab Interpretation (test code = Abnormal 17634-4) [facility] CampusHGB/HCT (H&H)-Stat [id number] 10:20:00 Test Item Value Reference Range Interpretation Comments Hemoglobin (test code = 786-4) 12.6 13.0- 16.8 GM/DL L Hematocrit (test code = 4544-3) 37.0 % 40-50 L Lab Interpretation (test code = Abnormal 94632-0) [facility] CampusGlucose-Stat [id number] 10:20:00 Test Item Value Reference Range Interpretation Comments Glucose (test code = 2345-7) 153 mg/dL 70-110 H Lab Interpretation (test code = Abnormal 23078-4) [facility] [id number] 10:20:00 Test Item Value Reference Range Interpretation Comments Sodium (test code = 2951-2) 137 meq/L 136-145 Lab Interpretation (test code = Normal 78239-6) [facility] CampusPotassium-Stat [id number] 10:20:00 Test Item Value Reference Range Interpretation Comments Potassium (test code = 2823-3) 4.0 meq/L 3.6-5.5 Lab Interpretation (test code = Normal 53579-2) [facility] [id number] 10:20:00 Test Item Value Reference Range Interpretation Comments SODIUM (BEAKER) (test code = 381) 137 meq/L 136-145 POTASSIUM-STAT [id number] 10:20:00 Test Item Value Reference Range Interpretation Comments POTASSIUM (BEAKER) (test code = 4.0 meq/L 3.6-5.5 379) BLOOD GAS, [id number] 10:20:00 Test Item Value Reference Range Interpretation Comments PH ARTERIAL (BEAKER) (test code = 7.44 7.35-7.45 383) PCO2 ARTERIAL (BEAKER) (test code 40 mm Hg 35-45 = 384) PO2 ARTERIAL (BEAKER) (test code = 334 mm Hg 80-90 H 385) O2 SATURATION ARTERIAL (BEAKER) 99.8 % 96.0-97.0 H (test code = 386) HCO3 ARTERIAL (BEAKER) (test code 26 mmol/L 21-29 = 388) BASE EXCESS ARTERIAL (BEAKER) 1.8 mmol/L -2.0-3.0 (test code = 387) PATIENT TEMPERATURE (BEAKER) (test 36.5 code = 1818) FIO2 (BEAKER) (test code = 1819) 100.0 GLUCOSE-STAT [id number] 10:20:00 Test Item Value Reference Range Interpretation Comments GLUCOSE RANDOM (BEAKER) (test code 153 mg/dL 70-110 H = 652) HGB/HCT (H&H) - STAT [id number] 10:20:00 Test Item Value Reference Range Interpretation Comments HEMOGLOBIN (BEAKER) (test code = 12.6 GM/DL 13.0-16.8 L 410) HEMATOCRIT (BEAKER) (test code = 37.0 % 40.0-50.0 L 411) CALCIUM, [id number] 10:20:00 Test Item Value Reference Range Interpretation Comments CALCIUM IONIZED (BEAKER) (test 1.04 mmol/L 1.12-1.27 L code = 698) PH, BLOOD (BEAKER) (test code = 7.43 1810) bear [id number] 06:53:00 Test Item Value Reference Range Interpretation Comments ABO Grouping (test code = 2588) A Rh Factor (test code = 2589) POS [facility] [id number] 06:03:00 Test Item Value Reference Range Interpretation Comments POC-GLUCOSE METER 210 mg/dL 70-110 H : TESTED A T [facility] 6720 (BEAKER) (test code [facility], = 1538) [address]: Occupational Nurse/Techni jaden ID = [id number] for JORD AN, LACRYSTAL SARS-CoV2/RT-PCR ([facility])2020-05-28 15:06:00 Test Item Value Reference Range Interpretation Comments SARS-COV2/RT-PCR Negative Not Detected, (test code = Negative, See 69068-0) external report for linked test SARS-COV-2 [facility] YORDY PERFORMING LAB (test code = 31560-4) FAUSTO (test code = Negative result for this FAUSTO) test determines that SARS-CoV-2 RNA was not present in the [...] of the Act. Fact Sheet for Healthcare Providers:https://www.[employer]/sites/default/f flo/product/documents/F act_Sheet_HC_Providers_L ztt_EISI-JkL-0.pdf Fact Sheet for Healthcare Patients:https://www.[employer]/sites/default/fi les/product/documents/Fa ct_Sheet_Patients_Lyra_S ARS-CoV-2.pdf Performing Laboratory:[facility], [place] [address] [place], [place] [address]ARS-COV2/RT-PCR ([facility]2020-05-28 15:06:00 Test Item Value Reference Range Interpretation Comments SARS-COV2/RT-PCR (test Negative Not Detected, Negative, code = 5704266) See external report for linked test SARS-COV-[address] [facility] YORDY (test code = 5120226) Negative result for this test determines that SARS-CoV-2 RNA was not present in the specimen above the Limit of Detection (LOD). However, Negative results do not preclude SARS-CoV-2 infection and should not be used as the sole basis for treatment or patient management decisions. Negative results mustbe combined with clinical observations, patient history, and epidemiological information. A false negative result may occur if a specimen is improperly collected, transported or handled. A false negative result should be considered if patient's recent exposures or clinical presentation indicate that COVID-19 (SARS-CoV-2) is likely and diagnostic tests for other causes of illness are negative. Re-testing should be considered in cases of suspected false negatives.The limit of detection for this assay is 800 copies/mL.This SARS CoV-2 test is a real-time RT-PCR test intended for the qualitative detection of nucleic acid from SARS-CoV-2 in a nasopharyngeal swab specimen collected from individuals susp ected of COVID-19 by their healthcare provider.This test has not been Food and Drug [...] is revoked under Section 564(g) of the Act.Fact Sheet for Healthcare Providers:https://www.[employer]/sites/default/files/product/documents/Fact_Shee h_NK_Gansitrvq_Bwht_ECWP-RcW-5.pdfFact Sheet for Healthcare Patients:https://www.[employer]/sites/default/files/product/ documents/Wpyt_Ohqoi_Vwynqdqa_Voji_GLNH-JzK-3.pdfPerforming Laboratory:[address], [place] [address]FIQY-VSN9/RT-PCR ([facility])2020-05-21 16:46:00 Test Item Value Reference Range Interpretation Comments SARS-COV2/RT-PCR (test Negative Not Detected, Negative, code = 1240820) See external report for linked test SARS-COV-[address] [facility] YORDY (test code = 4304561) Negative result for this test determines that SARS-CoV-2 RNA was not present in the specimen above the Limit of Detection (LOD). However, Negative results do not preclude SARS-CoV-2 infection and should not be used as the sole basis for treatment or patient management decisions. Negative results mustbe combined with clinical observations, patient history, and epidemiological information. A false negative result may occur if a specimen is improperly collected, transported or handled. A false negative result should be considered if patient's recent exposures or clinical presentation indicate that COVID-19 (SARS-CoV-2) is likely and diagnostic tests for other causes of illness are negative. Re-testing should be considered in cases of suspected false negatives.The limit of detection for this assay is 800 copies/mL.This SARS CoV-2 test is a real-time RT-PCR test intended for the qualitative detection of nucleic acid from SARS-CoV-2 in a nasopharyngeal swab specimen collected from individuals susp ected of COVID-19 by their healthcare provider.This test has not been Food and Drug [...] is revoked under Section 564(g) of the Act.Fact Sheet for Healthcare Providers:https://www.[employer]/sites/default/files/product/documents/Fact_Shee i_EG_Qpctrzxed_Ixsg_WGCJ-GqZ-3.pdfFact Sheet for Healthcare Patients:https://www.[employer]/sites/default/files/product/ documents/Gkxq_Xezcd_Dhkqyzzu_Bxps_FGLM-LmB-5.pdfPerforming Laboratory:[facility].[place], [place] [address]VZMFOUAQ AGGREGATION: FUNCTION [id number] 14:18:00 Test Item Value Reference Range Interpretation Comments [id number] Michael Teran MD (BEAKER) (test code = (electronic 2622) signature) PLATELET COUNT AGG 236 K/CU MM 150-450 (BEAKER) (test code = 2656) ADP (BEAKER) (test code 15 % 62-100 L = 4654) PLATELET RICH 292 k/cu mm 200-300 PLASMA(BEAKER) (test code = 2134) PLATELET FUNCTION SCREEN Decreased aggregation INTERPRETATION (BEAKER) with ADP which (test code = 4655) indicates platelet dysfunction that may be due to medication effect, uremia, or other platelet function disorders. Clinical correlation is required. Platelet Function Screen results may be falsely low with platelet counts<75,000/cu mm.Occupational Nurse ID- [id number], 62-[id number] 14:09:07Interface, External Ris In - 05/21/2020 2:09 PM CDTVentricular Rate 65 BPMAtrial Rate 65 BPMP-R Interval 162 msQRS Duration 166 msQ-T Interval 454 msQTC Calculation(Bazett) 472 msP Marion 68 degreesR Marion -78 degreesT Marion 59 degreesNormal sinus rhythmLeft axis deviationRight bundle branch blockAbnormal ECGNo previous ECGs availableConfirmed by Brandin Reed ([id number]) on 05/21/2020 2:09:01 [facility] CenterType and screen, [id number] 12:01:00 Test Item Value Reference Range Interpretation Comments ABO/RH AUTOMATED (BEAKER) (test A POSITIVE code = 2260) Ab Scrn (test code = 890-4) NEGATIVE [facility] [id number] 12:01:00 Test Item Value Reference Range Interpretation Comments SODIUM (BEAKER) 139 meq/L 136-145 (test code = 381) POTASSIUM (BEAKER) 4.3 meq/L 3.5-5.1 (test code = 379) CHLORIDE (BEAKER) 102 meq/L 98-107 (test code = 382) CO2 (BEAKER) (test 26 meq/L 22-29 code = 355) BLOOD UREA NITROGEN 23 mg/dL 7-21 H (BEAKER) (test code = 354) CREATININE (BEAKER) 1.42 mg/dL 0.57-1.25 H (test code = 358) GLUCOSE RANDOM 167 mg/dL 70-105 H (BEAKER) (test code = 652) CALCIUM (BEAKER) 9.4 mg/dL 8.4-10.2 (test code = 697) EGFR (BEAKER) (test 51 mL/min/1.73 ESTIMA JOMAR GFR IS code = 1092) sq m NOT ACCURATE CREATININE CLEARANCE IN PREDICTING GLOMERULAR FILTRATION RATE . ESTIMATED GFR I S NOT APPLICABLE FOR DIALYSIS PATIEN TS. Occupational Nurse ID - MAURICIO CProthrombin time/[id number] 11:28:00 Test Item Value Reference Range Interpretation Comments Protime (test code = 13.4 11.9- 14.2 5902-2) seconds INR (test code = 1.05 <=5.90 6301-6) FAUSTO (test code = FAUSTO) Effective 01/10/2019: PT Reference Range ChangeNew: 11.9-14.2 Previous: 11.7-14.7 RECOMMENDED COUMADIN/WARFARIN INR THERAPY RANGESSTANDARD DOSE: 2.0-3.0 Includes: PROPHYLAXIS for venous thrombosis, systemic embolization; TREATMENT for venous thrombosis and/or pulmonary embolus.HIGH RISK: Target INR is 2.5-3.5 for patients wiht mechanical heart valves. Lab Interpretation Normal (test code = 75487-8) [facility] CampusPROTHROM[facility] TIME/[id number] 11:28:00 Test Item Value Reference Range Interpretation Comments PROTIME (BEAKER) (test code = 13.4 seconds 11.9-14.2 759) INR (BEAKER) (test code = 370) 1.05 <=5.90 Effective 01/10/2019: PT Reference Range ChangeNew: 11.9-14.2 Previous: 11.7- 14.7RECOMMENDED COUMADIN/WARFARIN INR THERAPY RANGESSTANDARD DOSE: 2.0-3.0 Includes: PROPHYLAXIS for venous thrombosis, systemic embolization; TREATMENT for venous thrombosis and/or pulmonary embolus.HIGH RISK: Target INR is2.5-3.5 for patients wiht mechanical heart valves.CBC W/PLT COUNT & AUTO [id number] 11:12:00 Test Item Value Reference Range Interpretation Comments WHITE BLOOD CELL COUNT (BEAKER) 8.4 K/ L 3.5-10.5 (test code = 775) RED BLOOD CELL COUNT (BEAKER) 4.84 M/ L 4.63-6.08 (test code = 761) HEMOGLOBIN (BEAKER) (test code = 14.8 GM/DL 13.7-17.5 410) HEMATOCRIT (BEAKER) (test code = 44.7 % 40.1-51.0 411) MEAN CORPUSCULAR VOLUME (BEAKER) 92.4 fL 79.0-92.2 H (test code = 753) MEAN CORPUSCULAR HEMOGLOBIN 30.6 pg 25.7-32.2 (BEAKER) (test code = 751) MEAN CORPUSCULAR HEMOGLOBIN CONC 33.1 GM/DL 32.3-36.5 (BEAKER) (test code = 752) RED CELL DISTRIBUTION WIDTH 13.1 % 11.6-14.4 (BEAKER) (test code = 412) PLATELET COUNT (BEAKER) (test 239 K/CU MM 150-450 code = 756) MEAN PLATELET VOLUME (BEAKER) 10.6 fL 9.4-12.4 (test code = 754) NUCLEATED RED BLOOD CELLS 0 /100 WBC 0-0 (BEAKER) (test code = 413) NEUTROPHILS RELATIVE PERCENT 67 % (BEAKER) (test code = 429) LYMPHOCYTES RELATIVE PERCENT 21 % (BEAKER) (test code = 430) MONOCYTES RELATIVE PERCENT 8 % (BEAKER) (test code = 431) EOSINOPHILS RELATIVE PERCENT 3 % (BEAKER) (test code = 432) BASOPHILS RELATIVE PERCENT 1 % (BEAKER) (test code = 437) NEUTROPHILS ABSOLUTE COUNT 5.58 K/ L 1.78-5.38 H (BEAKER) (test code = 670) LYMPHOCYTES ABSOLUTE COUNT 1.78 K/ L 1.32-3.57 (BEAKER) (test code = 414) MONOCYTES ABSOLUTE COUNT (BEAKER) 0.65 K/ L 0.30-0.82 (test code = 415) EOSINOPHILS ABSOLUTE COUNT 0.26 K/ L 0.04-0.54 (BEAKER) (test code = 416) BASOPHILS ABSOLUTE COUNT (BEAKER) 0.09 K/ L 0.01-0.08 H (test code = 417) IMMATURE GRANULOCYTES-RELATIVE 0 % 0-1 PERCENT (BEAKER) (test code = 2801) MRI Lumbar Spine Wo [id number] 13:38:17Hm Interface, Radiology Results 03/13/2020 1:41 PM CDTEXAMINATION: MRI LUMBAR SPINE WO CO NTRASTCLINICAL HISTORY: R29.2 Abnormal reflex, R25.8 Other abnormal [...] spinal canal, subarticular zone, or neural foraminal stenosis.Disc desiccation.L2-L3: Mild facet arthropathy contributes to mild bilateral subarticular zone stenosis without significant spinal canal or neural foraminal stenosis. Disc desiccation.L3-L4: Mild facetarthropathy contributes to mild bilateral subarticular zone stenosis without significant spinal canal or neural foraminal stenosis. Disc desiccation.L4-L5: Moderate facet arthropathy with ligament flavu m infolding and small disc bulge and endplate [...] notably at L4-5 and L5-S1 as detailed above.[id number] General Hospital Thoracic Spine Wo [id number] 13:22:04Hm Interface, Radiology Results 03/13/2020 1:25 PM CDTEXAMINATION: MRI THORACIC SPINE WOCONTRASTCLINICAL HISTORY: R29.2 Abnormal reflex, R25.8 Other abnormal involuntary movements, hyper reflexia clonusCOMPARISON: NoneTECHNIQUE: Multiplanar multisequence noncontrast enhanced examinationwas performed of the thoracic spine.FINDINGS:No vertebral fracture. Small disc bulges at T1-2, T2-3,T4-5, T7-8, and small cysts right paracentral disc protrusion at T8-9 without significant spinal canal stenosis throughout the thoracic spine. There is contact of the ventral spinal cord at T8-9 without abnormal cord signal and mild bilateral subarticular zone stenosis at this level. There is mild bilateral subarticular zone stenosis at T1-T2, left T2-3, bilateral T4-5, and bilateral T9-10 and [id number] to facet and small endplate osteophytes. Disc [...] demonstrates no evidence of mass. No acute abnormality.IMPRESSION:1. Multilevel degenerative changes of the thoracic spine, with few levels of mild neural foraminal and subarticular zone stenosis as above.[id number] Methodist[facility] Cervical Spine Wo [id number] 13:10:36Hm Interface, Radiology Results 03/13/2020 1:13 PM CDTStudy:MRI CERVICAL SPINE WO CONTRASTHistory:R29.2 Abnormal reflex, R25.8 Other abnormal involuntary movements, hyper reflexia clonusCOM PARISON:NoneTECHNIQUE: Multiplanar multisequence MR images of the cervical spine obtained without contrast.FINDINGS:There is some mild reversal of the cervical [...] and facet arthrosis present. Severe bilateral foraminal stenosis.C4- 5:Mild disc height loss without disc protrusion. No canal stenosis. Uncovertebral joint arthrosis and facet arthrosis present. Severe right and moderate left foraminal stenosis.C5-6: Mild disc height loss witha broad shallow disc protrusion and moderate canal [...] and volume. The paravertebral soft tissues are unremarkable.IMPRESSION:Moderate canal stenosis at C5-6 from a broad shallow disc protrusion.Significant foraminal stenosis from spondylosis bilaterally at C3-4, C4-5, C5-6, and C6-7.No abnormal cord signal.[facility]-[id number] MethodistPET Brain Metabolic [id number] 11:31:52Hm Interface, Radiology Results - 03/13/2020 11:33 AM CDTPROCEDURE: PET BRAIN METABOLIC EVAL INDICATION: R41.3 Other amnesia, memory lossCOMPARISON: MRI brain 03/21/2019 TECHNIQUE: Blood glucose measured at the time of injection was 134 mg/dL. The patient was injected IV with 10 mCi of 18F-FDG. Approximately one hour later, PET images of the brain were obtained. Corresponding low dose CT scanning was performed as part of the attenuation correction process. FINDINGS: Matthews matter metabolismis preserved throughout the bilateral cerebral hemispheres. No regional hypometabolism is seen. Right temporal arachnoid cyst is noted. Subcortical structures demonstrate preserved metabolic activity. Cerebellar metabolism is within normal limits. IMPRESSION: No definitive metabolic evidence of a progressive neurodegenerative disorder.[facility]-[id number] [facility] [id number] 08:16:33 Test Item Value Reference Range Interpretation Comments POC glucose (test code = 134 mg/dL 65-99 H Ope rator Name: Bailey [id number]) [facility]: [id number] able: No Action Neede d Lab Interpretation (test Abnormal code = 99169-9) [facility] Abdominal Arterial Angioplasty/Stent [id number] 19:28:24Hm Interface, Radiology Results - 06/14/2019 7:31 PM CDTPerforming RadiologistAkhil Cardenas MD AssistantsNone Anesthesia TypeModerate sedation was administered by the procedure nurse and monitored by the procedure physician for a total jvub-wp-yyna sedation time of approximately 61 minutes. L [...] fluoroscopy. The micropuncture sheath was removed,and a 5-[place] Islander vascular sheath was then placed. Although sonographic guidance was utilized and a single stick arterial puncture was performed, given the ultrasound machine, no sonographic image could be sent to PACS. A sheath was placed into the right common femoral artery. A right common femoral arteriogram was then performed with injection of contrast through the 5-[place] vascular sheath to evaluate the arterial access into the right common femoral artery. A 5-[place] pigtail catheter was advanced successfully into the distal abdominal aorta aorta. An aortogram and pelvic arteriogram was then performed with injection of contrast in the AP projection. Exchange then made for a 5 [place] sauce catheter, through which a Glidewire was used to select the contralateral, left external iliac artery. Next,the catheter was removed over a wire and a 5 [place] 65 cm Kumpe catheter was placed into [...] sheath. After adequate imaging was obtained, the 5-[place] Islander vascular sheath was removed the right common femoral artery, and a Mynx closure device was used for hemostasis. The patient tolerated the procedure well.FindingsDistal aorta: Patent.Right common iliac artery: PatentRight internal iliac artery: Visualized portions appear patentRight external iliac artery: Patent.Right common femoral artery: Scattered calcifications on common femoral arterial sheath run. Marion is noted to be above the bifurcation [...] device, which was successfully deployed as described above.[facility]-[id number] Garcia
--- OUTSIDE RECORDS SUMMARY | 2020-06-04 08:29 | XMS REPORT ---
:1955 Author Organization [facility] Address [address] [place] [address] Care Team Providers Name Role Phone Mccracken Unavailable [phone] PROBLEMS Type Condition ICD9-CM [id number] Onset Condition SNOMED Code Notes Code Code Dates Status Problem HTN (hypertension) I10 Active 12325094 Problem CAD (coronary I25.10 Active 87622666 artery disease) Problem Diabetes E11.9 Active 133944611 Problem Obesity E66.9 Active 714266585 Problem Stented coronary Z95.5 Active 552169841 artery Problem Hyperlipidemia E78.5 Active 60860454 Problem Unspecified I70.209 Active 579277093027904 atherosclerosis of [place] arteries of extremities, unspecified extremity Problem Depression with F41.8 Active 289254393 anxiety Problem Allergic arthritis M13.89 Active 49861196 Problem Intermittent I73.9 Active 31575930 claudication Problem 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 462664216 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 Problem PUD (peptic ulcer K27.9 Active 26219194 disease) Problem Memory changes R41.3 Active 368535900 Problem Lower extremity R60.0 Active 240810310 edema Problem Type 2 diabetes E11.51 Active 723976353 mellitus with diabetic peripheral angiopathy without gangrene Problem Peripheral I73.9 Active 383779378 vascular disease Problem Pain in right hip M25.551 Active 30454335 Problem Pain in left hip M25.552 Active 84958873 Problem Tremor R25.1 Active 73148285 Problem Multiple joint M25.50 Active 78894001 pain ALLERGIES Allergen (clinical drug Drug/Non Drug Allergy Reaction Allergy Type Onset Date Status ingredient) documented on EMR pregabalin Lyrica([facility] Unknown Drug Allergy Active Code:[address]-63) ciprofloxacin Cipro([facility] Unknown Drug Allergy Active Code:[address]-05) ENCOUNTERS from 1955 to 2020-05-09 Encounter Location Date Provider Diagnosis [facility] [address] [facility] [address] [place] [address] Apr, 2020 [place] [address] IMMUNIZATIONS Vaccine Route Administration Date Status Pneumovax [...] REASON FOR REFERRAL No Information VITAL SIGNS No information MEDICATIONS Medication SIG (Take, Route, Frequency, Start [...] tablet Orally Once a day Active for Hydrochlorothiazide 25 MG TAKE 1 TABLET BY [...] Information RESULTS No Results REASON FOR VISIT Needs a return call MEDICAL (GENERAL) HISTORY Type Description Date Medical [...] History heart stent 2012 Surgical History tonsillectomy 1994 Surgical History shoulder rotator cuff 05/2015 Surgical History angogram heart leg 02/2017 Surgical History nostrial polpectomy 12/2015 Surgical History stent rt leg 05/2013 Surgical History rt leg bypass 07/2013 Goals Section No Information Health Concerns No Information MEDICAL EQUIPMENT No Information MENTAL STATUS No Information FUNCTIONAL STATUS No Information ASSESSMENTS No Information PLAN OF TREATMENT Medication Medication Name Sig [...] Orally Once a day for 30 day(s) Next Appt Details Provider Name:Sophia Mccracken, 2020-08-12 08:0 0:00 AM, [address] [place], [place], [address], Insurance Providers Payer Name Payer Payer Insured Name Patient Coverage Covera End Address Phone Relationship to Start Date Mike e Insured [employer] [phone] Alexander Walker [id number] and Luke [id number] R [id number] [facility] [id number] [phone]
--- OUTSIDE RECORDS SUMMARY | 2020-06-04 08:29 | XMS REPORT ---
:[address] [facility] Address [address] [place] [address] Care Team Providers Name Role Phone Mccracken Unavailable [phone] PROBLEMS Type Condition ICD9-CM [id number] Onset Condition SNOMED Code Notes Code Code Dates Status Problem Hyperlipidemia E78.5 Active 66120570 Problem Diabetes E11.9 Active 655080109 Problem Depression with F41.8 Active 443859214 anxiety Problem Stented coronary Z95.5 Active 638915278 artery Problem Memory changes R41.3 Active 172268233 Problem Type 2 diabetes E11.51 Active 904776987 mellitus with diabetic peripheral angiopathy without gangrene Problem Unspecified I70.209 Active 762061022161189 atherosclerosis of [place] arteries of extremities, unspecified extremity Problem Peripheral I73.9 Active 800178726 vascular disease Problem Allergic arthritis M13.89 Active 17934940 Problem Pain in left hip M25.552 Active 35872329 Problem Pain in right hip M25.551 Active 55797261 Problem Tremor R25.1 Active 29025863 Problem Occlusion and I65.29 Active 258082203 stenosis of unspecified carotid artery Problem 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 514019642 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 Problem HTN (hypertension) I10 Active 99477066 Problem Dark brown-colored R82.998 Active 5060628336405 06 urine Problem Intermittent I73.9 Active 26781846 claudication Problem CAD (coronary I25.10 Active 13330504 artery disease) Problem Obesity E66.9 Active 223645240 Problem Multiple joint M25.50 Active 97132521 pain Problem Lower extremity R60.0 Active 910913144 edema Problem PUD (peptic ulcer K27.9 Active 90557638 disease) Problem Bilateral carotid I65.23 Active 061065275 artery stenosis ALLERGIES Allergen (clinical drug Drug/Non Drug Allergy Reaction Allergy Type Onset Date Status ingredient) documented on EMR pregabalin Lyrica([facility] Unknown Drug Allergy Active Code:[address]-59) ciprofloxacin Cipro([facility] Unknown Drug Allergy Active Code:[address]-27) ENCOUNTERS from 1955 to 2020-05-21 Encounter Location Date Provider Diagnosis [facility] [address] [facility] [address] [facility] [address], [place] [address] IMMUNIZATIONS Vaccine Route Administration Date Status Pneumovax [...] Frequency, Start Date End Date Status Duration) Cilostazol 100 MG 1 tablet 30 minutes before or Active 2 hours after breakfast and dinner Orally once a day Aspir-81 81 MG 1 tablet Orally Once a day Active Bystolic 20 MG 1 tablet Orally Once a day in Active PM for 90 day Rosuvastatin Calcium 10MG 1 tablet Orally Once a day Active for 90 days Plavix 75 MG TAKE 1 TABLET BY MOUTH ONCE Active DAILY for 90 Trulicity 1.5 MG/0.5ML 1.5 mg Subcutaneous once a Active week for 90 days Zyrtec Allergy 10 MG 1 tablet Orally Once a day Active Lantus SoloStar 100 UNIT/ML 35 units daily as directed Active Subcutaneous for 90 days Cozaar 100 MG 1 tablet Orally Once a day in Active AM for 90 day Hydrochlorothiazide 25 MG TAKE 1 TABLET BY MOUTH EVERY Active DAY IN THE MORNING for 90 Glyburide-Metformin 5-500 MG 1 tablet with a meal Orally Active twice a day for 90 day(s) Bystolic 20 MG 1 tablet Orally Once a day Active for 90 Crestor 10 MG TAKE 1 TABLET BY MOUTH ONCE A Active DAY P.O Q day for 90 days Losartan Potassium 100 MG TAKE 1 TABLET BY MOUTH ONCE A Active DAY for 90 Hydrochlorothiazide 25 MG 1 tablet in the morning Active Orally Once a day for 90 days Humalog KwikPen 100 UNIT/ML 12 units tid before meals Active Subcutaneous for 90 days Dexilant 60 MG 1 capsule Orally Once a day Active for 30 day(s) PROCEDURES No Information RESULTS No Results REASON FOR VISIT Lab results MEDICAL (GENERAL) HISTORY Type Description Date Medical [...] Information ASSESSMENTS No Information PLAN OF TREATMENT Next Appt Details Provider Name:Sophia Mccracken, 2020-08-12 08:0 0:00 AM, [address], [address], [place], [address], Insurance Providers Payer Name Payer Payer Insured Name Patient Coverage Covera ge End Address Phone Relationship to Start Date Mike e Insured [employer] [phone] Alexander Walker [id number] 8 and Luke [id number] 87 R [id number] [facility] [id number] [phone]
--- OUTSIDE RECORDS SUMMARY | 2020-06-04 08:29 | XMS REPORT ---
:1955 Author Organization [facility] Address [address] [place] [address] Care Team Providers Name Role Phone Mccracken Unavailable [phone] PROBLEMS Type Condition ICD9-CM [id number] Onset Condition SNOMED Code Notes Code Code Dates Status Problem Obesity E66.9 Active 157707260 Problem HTN (hypertension) I10 Active 48798766 Problem Hyperlipidemia E78.5 Active 48041648 Problem Diabetes E11.9 Active 264955086 Problem Depression with F41.8 Active 650264904 anxiety Problem Stented coronary Z95.5 Active 796650415 artery Problem Memory changes R41.3 Active 384151705 Problem Type 2 diabetes E11.51 Active 230962180 mellitus with diabetic peripheral angiopathy without gangrene Problem Intermittent I73.9 Active 34441682 claudication Problem 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 377251935 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 Problem Pain in right hip M25.551 Active 09211741 Problem PUD (peptic ulcer K27.9 Active 67634547 disease) Problem Unspecified I70.209 Active 203787261600791 atherosclerosis of [place] arteries of extremities, unspecified extremity Problem Peripheral I73.9 Active 407510139 vascular disease Problem Occlusion and I65.29 Active 805403761 stenosis of unspecified carotid artery Problem Allergic arthritis M13.89 Active 27089307 Problem CAD (coronary I25.10 Active 66216967 artery disease) Problem Pain in left hip M25.552 Active 79327760 Problem Tremor R25.1 Active 83565176 Problem Multiple joint M25.50 Active 21726226 pain Problem Lower extremity R60.0 Active 529188184 edema ALLERGIES Allergen (clinical drug Drug/Non Drug Allergy Reaction Allergy Type Onset Date Status ingredient) documented on EMR pregabalin Lyrica([facility] Unknown Drug Allergy Active Code:[address]-56) ciprofloxacin Cipro([facility] Unknown Drug Allergy Active Code:[address]-50) ENCOUNTERS from 1955 to 2020-05-12 Encounter Location Date Provider Diagnosis [facility] [address] [facility] [address] [facility] Apr, Na Kaykay Occ lusion and stenosis [facility] [address] [place] [address] [place] [address] artery I65.29 IMMUNIZATIONS Vaccine Route Administration Date Status Pneumovax [...] Information RESULTS No Results REASON FOR VISIT Referral - [facility] MEDICAL (GENERAL) HISTORY Type Description Date Medical [...] Information ASSESSMENTS Encounter Date Diagnosis Notes Apr, Occlusion and stenosis of unspecified ca rotid artery (ICD-10 - I65.29) PLAN OF TREATMENT Medication Medication Name Sig [...] Name:Sophia Mccracken, 2020-08-12 08:0 0:00 AM, [address] [place], [address], [place], [address], Insurance Providers Payer Name Payer Payer Insured Name Patient Coverage Covera End Address Phone Relationship to Start Date Mike e Insured [employer] [phone] Alexander Walker [id number] and Luke [id number] R [id number] [facility] [id number] [phone]
--- OUTSIDE RECORDS SUMMARY | 2020-06-04 08:30 | XMS REPORT ---
:1955 Author Organization [facility] Address [address] [place] [address] Care Team Providers Name Role Phone Mccracken Unavailable [phone] PROBLEMS Type Condition ICD9-CM [id number] Onset Condition SNOMED Code Notes Code Code Dates Status Problem Hyperlipidemia E78.5 Active 63712531 Problem Diabetes E11.9 Active 026033543 Problem Depression with F41.8 Active 254835947 anxiety Problem Stented coronary Z95.5 Active 730983949 artery Problem Memory changes R41.3 Active 338514277 Problem Type 2 diabetes E11.51 Active 458347215 mellitus with diabetic peripheral angiopathy without gangrene Problem Unspecified I70.209 Active 832463095003686 atherosclerosis of creek arteries of extremities, unspecified extremity Problem Peripheral I73.9 Active 031444070 vascular disease Problem Allergic arthritis M13.89 Active 96072829 Problem Pain in left hip M25.552 Active 68761475 Problem Pain in right hip M25.551 Active 54457523 Problem Tremor R25.1 Active 47737735 Problem Occlusion and I65.29 Active 357903374 stenosis of unspecified carotid artery Problem 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 898247436 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 Problem HTN (hypertension) I10 Active 00304895 Problem Dark brown-colored R82.998 Active 8067055212327 06 urine Problem Intermittent I73.9 Active 65674593 claudication Problem CAD (coronary I25.10 Active 14530463 artery disease) Problem Obesity E66.9 Active 171412089 Problem Multiple joint M25.50 Active 52133534 pain Problem Lower extremity R60.0 Active 096180133 edema Problem PUD (peptic ulcer K27.9 Active 08202758 disease) Problem Bilateral carotid I65.23 Active 567757161 artery stenosis ALLERGIES Allergen (clinical drug Drug/Non Drug Allergy Reaction Allergy Type Onset Date Status ingredient) documented on EMR pregabalin Lyrica([facility] Unknown Drug Allergy Active Code:[address]-89) ciprofloxacin Cipro([facility] Unknown Drug Allergy Active Code:[address]-12) ENCOUNTERS from 1955 to 2020-05-23 Encounter Location Date Provider Diagnosis [facility] [address] 08 May, 2020 Na Mccracken Dark urine R82.998 [place] [address] IMMUNIZATIONS Vaccine Route Administration Date Status Pneumovax [...] No information MEDICATIONS Medication SIG (Take, Route, Start Date End Date Status Frequency, Duration) Plavix 75 MG TAKE 1 TABLET BY MOUTH Activ e ONCE DAILY for 90 Humalog KwikPen 100 UNIT/ML 12 units tid before Active meals Subcutaneous for 90 days Cozaar 100 MG 1 tablet Orally Once a Acti ve day in AM for 90 day Cilostazol 100 MG 1 tablet 30 minutes Act mima before or 2 hours after breakfast and dinner Orally once a day Hydrochlorothiazide 25 MG 1 tablet in the morning Active Orally Once a day for 90 days Lantus SoloStar 100 UNIT/ML 35 units daily as Active directed Subcutaneous for 90 days Zyrtec Allergy 10 MG 1 tablet Orally Once a Active day Rosuvastatin Calcium 10MG 1 tablet Orally Once a Active day for 90 days Bystolic 20 MG 1 tablet Orally Once a Act mima day in PM for 90 day Dexilant 60 MG 1 capsule Orally Once a Ac tive day for 30 day(s) Hydrochlorothiazide 25 MG TAKE 1 TABLET BY MOUTH Active EVERY DAY IN THE MORNING for 90 Aspir-81 81 MG 1 tablet Orally Once a Act mima day Glyburide-Metformin 5-500 MG 1 tablet with a meal Active Orally twice a day for 90 day(s) Crestor 10 MG TAKE 1 TABLET BY MOUTH Acti ve ONCE A DAY P.O Q day for 90 days Losartan Potassium 100 MG TAKE 1 TABLET BY MOUTH Active ONCE A DAY for 90 Augmentin 875-125 MG 1 tablet Orally every May,May, 0 Active 12 hrs for 7 day(s) Trulicity 1.5 MG/0.5ML 1.5 mg Subcutaneous Active once a week for 90 days Bystolic 20 MG 1 tablet Orally Once a Act mima day for 90 PROCEDURES No Information RESULTS No Results REASON FOR VISIT Medication Request MEDICAL (GENERAL) HISTORY Type Description Date Medical [...] No Information ASSESSMENTS Encounter Date Diagnosis Notes May, Dark urine (ICD-10 - R82.998) PLAN OF TREATMENT Medication Medication Name Sig Start Date Stop Date Augmentin 875-125 MG 1 tablet Orally every 12 hrs for 7 May, May, day(s) Next Appt Details Provider Name:Sophia Ballg, 2020-08-12 08:0 0:00 AM, [address], [place], [address], Insurance Providers Payer Name Payer Payer Insured Name Patient Coverage Covera End Address Phone Relationship to Start Date Mike e Insured [employer] [phone] Alexander Walker [id number] and Luke [id number] R [id number] [facility] [id number] [phone]
--- OUTSIDE RECORDS SUMMARY | 2020-06-04 08:30 | XMS REPORT ---
:1955 Author Organization [facility] Address [address] [place] [address] Care Team Providers Name Role Phone Mccracken Unavailable [phone] PROBLEMS Type Condition ICD9-CM [id number] Onset Condition SNOMED Code Notes Code Code Dates Status Problem Hyperlipidemia E78.5 Active 84232429 Problem Diabetes E11.9 Active 581132864 Problem Depression with F41.8 Active 131821855 anxiety Problem Stented coronary Z95.5 Active 622772636 artery Problem Memory changes R41.3 Active 409013402 Problem Type 2 diabetes E11.51 Active 505574823 mellitus with diabetic peripheral angiopathy without gangrene Problem Unspecified I70.209 Active 445599310667408 atherosclerosis of [place] arteries of extremities, unspecified extremity Problem Peripheral I73.9 Active 164542176 vascular disease Problem Allergic arthritis M13.89 Active 82604283 Problem Pain in left hip M25.552 Active 80553103 Problem Pain in right hip M25.551 Active 06946379 Problem Tremor R25.1 Active 62677544 Problem Occlusion and I65.29 Active 917616076 stenosis of unspecified carotid artery Problem 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 668445621 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 Problem HTN (hypertension) I10 Active 74850682 Problem Dark brown-colored R82.998 Active 3527271895057 06 urine Problem Intermittent I73.9 Active 16457845 claudication Problem CAD (coronary I25.10 Active 25329408 artery disease) Problem Obesity E66.9 Active 584511703 Problem Multiple joint M25.50 Active 39579719 pain Problem Lower extremity R60.0 Active 939376998 edema Problem PUD (peptic ulcer K27.9 Active 29810480 disease) Problem Bilateral carotid I65.23 Active 607118920 artery stenosis ALLERGIES Allergen (clinical drug Drug/Non Drug Allergy Reaction Allergy Type Onset Date Status ingredient) documented on EMR pregabalin Lyrica([facility] Unknown Drug Allergy Active Code:[address]-31) ciprofloxacin Cipro([facility] Unknown Drug Allergy Active Code:[address]-25) ENCOUNTERS from 1955 to 2020-05-23 Encounter Location Date Provider Diagnosis [facility] [address] 08 May, 2020 Na Mccracken Dark urine R82.998 [place], [place] and [place] [address] infection, site not specified N39.0 IMMUNIZATIONS Vaccine Route Administration Date Status Pneumovax [...] Augmentin 875-125 MG 1 tablet Orally every May, 2019, 0 Active 12 hrs for 7 day(s) Trulicity 1.5 MG/0.5ML 1.5 mg Subcutaneous Active once a week for 90 days Bystolic 20 MG 1 tablet Orally Once a Act mima day for 90 PROCEDURES No Information RESULTS No Results REASON FOR VISIT u/a sample, dark urine MEDICAL (GENERAL) HISTORY Type Description Date Medical [...] Information ASSESSMENTS Encounter Date Diagnosis Notes May, Urinary tract infection, site not specif ied (ICD-10 - N39.0) May, Dark urine (ICD-10 - R82.998) PLAN OF TREATMENT Medication Medication Name Sig Start Date Stop Date Augmentin 875-125 MG 1 tablet Orally every 12 hrs for 7 May, May, day(s) Treatment Notes Assessment Notes Clinical Notes Dark urine -- take antibiotics as directed. Will se nd urine for urine culture and sensitivity to make sure ant ibiotic placed on is sensitive to the organism causing UTI l.-- increase water intake-- always wipe front to back-- try to clean well after bowel movement possibly with baby wipes.-- urinate after intercourse Patient allergic t o cipro called in augmentin for patient instead. Treatment Notes Test Name Order Date URINALYSIS AUTO W/O SCOPE (43191) 2020-05-23 Next Appt Details prn if no improvement Reason: Provider Name:Sophia Mccracken, 2020-08-12 08:0 0:00 AM, [address], [place], [address], Insurance Providers Payer Name Payer Payer Insured Name Patient Coverage Covera End Address Phone Relationship to Start Date Mike e Insured [employer] [phone] Alexander Walker [id number] and Blue [id number] R [id number] [facility] [phone]
[2020-06-04] MEDS ORDERED: CEFEPIME/SWI 1gm 10 ML IV ONE ×2 (08:45→10:00)
[2020-06-04] MEDS ORDERED: NA CHLORIDE 0.9% 2,000 ML ONE (08:55)
[2020-06-04 09:00] LABS: Absolute Lymphocytes (CBC) 0.4 K/uL (0.7-4.9); Basophils % 0.4 % (0-1.3); Hematocrit 41.6 % (39.6-49.0); Lymphocytes % 8.4 % (15.3-44.8); MPV 9.3 fL (7.6-11.3); Protime INR 1.06; RBC Red Blood Cell Count 4.63 M/uL (4.33-5.43)
[2020-06-04 09:19] LABS: ALT/SGPT 27 U/L (12-78); AST/SGOT 18 U/L (15-37); Albumin 3.6 g/dL (3.4-5.0); Alkaline Phosphatase 47 U/L (45-117); BUN Blood Urea Nitrogen 27 mg/dL (7-18); Bicarbonate 24 mmol/L (21-32); Bilirubin Direct 0.3 mg/dL (0-0.2); Bilirubin Total 0.9 mg/dL (0.2-1.0); Glucose Level 171 mg/dL (74-106); Lipase 93 U/L (73-393); NT PRO-BNP 193 pg/mL (<125); Potassium 4.7 mmol/L (3.5-5.1); Protein, Total 7.6 g/dL (6.4-8.2); Sodium Level 136 mmol/L (136-145); Troponin (Emerg Dept Use Only) < 0.02 ng/mL (0.0-0.045)
[2020-06-04 09:20] LABS: Magnesium 1.2 mg/dL (1.8-2.4)
--- NOTE | 2020-06-04 09:23 | RAD REPORT ---
EXAM DESCRIPTION: RAD - Chest Single View - 06/04/2020 9:16 am CLINICAL HISTORY: Cough;Chest pain;Dyspnea COMPARISON: May 02, 2020 TECHNIQUE: AP portable chest image was obtained 06/04/2020 9:16 am . FINDINGS: Lung volumes are decreased compared to the prior study. This accentuates interstitial carlos freddy. No focal mass or consolidation. Failure and volume overload are not suspected. Sternotomy wires in pl mil[place]. Heart and vasculature are normal. No measurable pleural effusion and no pneumothorax. No acute b roxane abnormality seen. No acute aortic findings suspected. IMPRESSION: No acute cardiopulmonary process. No significant change from comparison.
[2020-06-04 09:26] LABS: Platelet Estimate ADEQ; White Blood Cell Scan OK (OK)
[2020-06-04 09:27] LABS: Blood Morphology Comment NOT SEEN (NOT SEEN)
[2020-06-04] MEDS ORDERED: NA CHLORIDE 0.9% 1,000 ML ONE ×2 (09:50→11:17)
[2020-06-04] MEDS ORDERED: Magnesium Sulfate 2gm IVPB 2 G/50 ML BAG IV ONE (09:50)
[2020-06-04] MEDS ORDERED: VANCOMYCIN/NS 1 gm 1 GM/250 ML BAG IV ONE (10:00)
--- NOTE | 2020-06-04 10:01 | EDPHYS ---
Physician Documentation [facility] Name: Alexander Walker Age: 64 yrs Sex: Male : 1955 Arrival Date: 06/04/2020 Time: 08:25 Bed 4 Private MD: ED Physician Holden Velez HPI: 06/04 08:38 This 64 yrs old Male presents to ER via Unassigned with complaints of Chest josi Pain. 08:38 The patient or guardian reports chest pain that is located primarily in the substernal josi area, anterior chest wall. Onset: just prior to arrival, this morning. The pain does not radiate. Associated signs and symptoms: Pertinent positives: shortness of breath. 08:39 The chest pain is described as a pressure. Duration: The patient or guardian reports a josi single episode, that is still ongoing, but improving. Severity of pain: At its worst the pain was mild. 08:42 Modifying factors: The symptoms are alleviated by nothing. the symptoms are aggravated josi by nothing. 08:42 EMS care prior to arrival includes: saline lock, supplemental oxygen. The patient has josi experienced similar episodes in the past, several times. Historical: - Allergies: 09:15 Ciprofloxacin; iw 09:15 Latex, Natural Rubber; iw - Home Meds: 09:15 glyburide-metformin 5-500 mg Oral tab 1 tab 2 times per day [Active]; Trulicity 1.5 iw mg/0.5 mL subcutaneous pnij 0.5 mL once wkly [Active]; Lantus 100 unit/mL Sub-Q soln 35 unit daily [Active]; Humalog 100 unit/mL Sub-Q soln 13 unit three times a day [Active]; hydrochlorothiazide 25 mg Oral tab 1 tab once daily [Active]; losartan 100 mg Oral tab 1 tab once daily [Active]; Bystolic 20 mg oral tab 1 tab once daily [Active]; clopidogrel 75 mg Oral tab 1 tab once daily [Active]; rosuvastatin 10 mg Oral tab 1 tab once daily [Active]; Dexilant 60 mg oral CpDB 1 cap once daily [Active]; duloxetine 30 mg oral cpDR 1 cap 2 times per day [Active]; Folbee 2.5-25-1 mg Oral tab 1 tab once daily [Active]; aspirin 81 mg Oral TbEC 1 tab once daily [Active]; - PMHx: 09:15 Diabetes - IDDM; Hypertension; Hyperlipidemia; GERD; Neuropathy; Anxiety; iw - PSHx: 09:15 CABG; Angioplasty; Heart stents; Carotid surgery; iw - Immunization history:: Adult Immunizations up to date. - Social history:: Smoking status: Patient denies any tobacco usage or history of. Patient uses alcohol, on a daily basis. "2 beers a night". - Family history:: not pertinent. ROS: 08:39 Constitutional: Negative for fever, chills, and weight loss, Eyes: Negative for injury, josi pain, redness, and discharge, ENT: Negative for injury, pain, and discharge, Neck: Negative for injury, pain, and swelling, Cardiovascular: Negative for chest pain, palpitations, and edema, Abdomen/GI: Negative for abdominal pain, nausea, vomiting, diarrhea, and constipation, Back: Negative for injury and pain, : Negative for injury, bleeding, discharge, and swelling, MS/Extremity: Negative for injury and deformity, Skin: Negative for injury, rash, and discoloration, Neuro: Negative for headache, weakness, numbness, tingling, and seizure, Psych: Negative for depression, anxiety, suicide ideation, homicidal ideation, and hallucinations, Allergy/Immunology: Negative for hives, rash, and allergies, Endocrine: Negative for neck swelling, polydipsia, polyuria, polyphagia, and marked weight changes. 08:39 Respiratory: Positive for cough, shortness of breath. Exam: 08:39 Constitutional: This is a well developed, well nourished patient who is awake, alert, jois and in no acute distress. Head/Face: Normocephalic, atraumatic. Eyes: Pupils equal round and reactive to light, extra-ocular motions intact. Lids and lashes normal. Conjunctiva and sclera are non-icteric and not injected. Cornea within normal limits. Periorbital areas with no swelling, redness, or edema. ENT: Nares patent. No nasal discharge, no septal abnormalities noted. Tympanic membranes are normal and external auditory canals are clear. Oropharynx with no redness, swelling, or masses, exudates, or evidence of obstruction, uvula midline. Mucous membranes moist. Neck: Trachea midline, no thyromegaly or masses palpated, and no cervical lymphadenopathy. Supple, full range of motion without nuchal rigidity, or vertebral point tenderness. No Meningismus. Chest/axilla: Normal chest wall appearance and motion. Nontender with no deformity. No lesions are appreciated. Abdomen/GI: Soft, non-tender, with normal bowel sounds. No distension or tympany. No guarding or rebound. No evidence of tenderness throughout. Back: No spinal tenderness. No costovertebral tenderness. Full range of motion. Male : Normal genitalia with no discharge or lesions. Skin: Warm, dry with normal turgor. Normal color with no rashes, no lesions, and no evidence of cellulitis. MS/ Extremity: Pulses equal, no cyanosis. Neurovascular intact. Full, normal range of motion. Neuro: Awake and alert, GCS 15, oriented to person, place, time, and situation. Cranial nerves II-XII grossly intact. Motor strength 5/5 in all extremities. Sensory grossly intact. Cerebellar exam normal. Normal gait. Psych: Awake, alert, with orientation to person, place and time. Behavior, mood, and affect are within normal limits. 08:39 Cardiovascular: Rate: tachycardic, Rhythm: regular, Heart sounds: normal, Edema: is not appreciated. 08:39 Respiratory: mild respiratory distress is noted, Respirations: normal, no acute changes, Breath sounds: are clear throughout. 08:42 Cardiovascular: Pulses: no pulse deficits are appreciated. josi 08:42 ECG was reviewed by the Attending Physician. 10:47 Neck: External neck: erythema, swelling, that is mild, right carotid incision mild josi induration, minimal tenderness, post operatively expected. Vital Signs: 08:25 BP 142 / 70; Pulse 100; Resp 19; Temp 98.6; Pulse Ox 94% ; Weight 113.4 kg; Height 0 iw ft. 1 in. (3 cm); 09:25 BP 135 / 56; Pulse 100; Resp 20 S; Pulse Ox 98% on 2 lpm NC; iw 10:39 BP 110 / 59; Pulse 94; Resp 19; Pulse Ox 95% on 2 lpm NC; jl7 12:32 BP 107 / 61; Pulse 83; Resp 14; Pulse Ox 98% on 2 lpm NC; jl7 08:25 Body Mass Index 544746.88 (113.40 kg, 3 cm) iw MDM: 08:27 Patient medically screened. josi 08:43 Differential diagnosis: abnormal EKG, anxiety, coronary artery disease congestive heart josi failure cholecystitis, Cholelithiasis esophagitis, gastritis, hiatal hernia, pancreatitis, peptic ulcer disease, pericarditis, pneumonia, pulmonary embolus, stable angina, unstable angina. HEART Score: ECG: Non specific repolarization disturbance / LBTB / PM (1), Age: > 45 and < 65 years (1), Risk Factors: > or = 3 Risk factors for atherosclerotic disease (2), [Hypercholesterolemia] [Hypertension] [DM] [+ Family HX] [Obesity] Troponin: < or = 1 x Normal Limit (0). The patient was given aspirin in the Emergency Department. The patient's deep vein thrombosis risk score was calculated as follows: Total Score: 0. This patient was found to be at low risk for a deep vein thrombosis by using the Well's assessment criteria. The patient's pulmonary embolism risk score was calculated as follows: Total Score: 0-2 points. This patient was found to be at low risk for a pulmonary embolism by using the Well's assessment criteria. RAF Risk Score: 1 - patient's age is greater or equal to 65 years, 1 - Three or more CAD risk factors, 1- Known CAD, 1 - ASA use in past 7 days, 1 - Recent [<24hrs] Severe Angina. Data reviewed: vital signs, nurses notes, lab test result(s), EKG, radiologic studies, CT scan, plain films. Data interpreted: hospital monitor: rate is 102 beats/min, rhythm is regular, Pulse oximetry: on room air is 94 %. Test interpretation: by ED physician or midlevel provider: ECG, plain radiologic studies. 06/04 08:36 Order name: Basic Metabolic Panel; Complete Time: 09:35 josi 06/04 08:36 Order name: CBC with Diff; Complete Time: 09:35 [facility] 06/04 08:36 Order name: LFT's; Complete Time: 09:35 josi 06/04 08:36 Order name: Magnesium; Complete Time: 09:35 josi 06/04 08:36 Order name: NT PRO-BNP; Complete Time: 09:35 josi 06/04 08:36 Order name: PT-INR; Complete Time: 09:35 josi 06/04 08:36 Order name: Troponin (emerg Dept Use Only); Complete Time: 09:35 [facility] 06/04 08:36 Order name: Lipase; Complete Time: 09:35 [facility] 06/04 08:36 Order name: Blood Culture Adult (2) [facility] 06/04 08:36 Order name: Lactate; Complete Time: 09:35 [facility] 06/04 08:36 Order name: Procalcitonin; Complete Time: 09:35 [facility] 06/04 08:36 Order name: Urine Culture [facility] 06/04 08:39 Order name: Flu; Complete Time: 10:45 [facility] 06/04 08:36 Order name: XRAY Chest (1 view); Complete Time: 09:35 [facility] 06/04 08:36 Order name: EKG; Complete Time: 08:37 [facility] 06/04 08:36 Order name: Cardiac monitoring; Complete Time: 08:40 [facility] 06/04 08:36 Order name: EKG - Nurse/Tech; Complete Time: 08:40 [facility] 06/04 09:03 Order name: CBC Smear Scan; Complete Time: 09:35 [facility] 06/04 11:08 Order name: SARS-COV-2 RT PCR [facility] 06/04 11:24 Order name: Urine Dipstick--Ancillary (enter results) 06/04 12:18 Order name: Lactate 06/04 08:36 Order name: IV Saline Lock; Complete Time: 08:40 [facility] 06/04 08:36 Order name: Labs collected and sent; Complete Time: 08:47 [facility] 06/04 08:36 Order name: O2 Per Protocol; Complete Time: 08:40 [facility] 06/04 08:36 Order name: O2 Sat Monitoring; Complete Time: 08:40 [facility] 06/04 08:36 Order name: Urine Dipstick-Ancillary (obtain specimen); Complete Time: 10:35 [facility] 06/04 09:52 Order name: Bladder Scanner; Complete Time: 10:12 [facility] 06/04 10:34 Order name: PO challenge: ice; Complete Time: 10:37 [facility] EC:42 Rate is 102 beats/min. Rhythm is regular. QRS [place] is Normal. MI interval is normal. josi QRS interval is normal. QT interval is normal. No Q waves. T waves are Normal. No ST changes noted. Clinical impression: Normal ECG and No evidence of ischemia. Interpreted by me. Reviewed by me. Administered Medications: 09:00 Drug: NS 0.9% 1000 ml Route: IV; Rate: 1 bolus; Site: right antecubital; iw 10:00 Follow up: IV Status: Completed infusion; IV Intake: 1000ml jl7 09:00 Drug: NS 0.9% 1000 ml Route: IV; Rate: 125 ml/hr; Site: right antecubital; iw 11:26 Follow up: IV Status: Infusion continued upon admission jl7 09:50 Drug: NS 0.9% 1000 ml Route: IV; Rate: 1 bolus; Site: left forearm; jl7 10:50 Follow up: Response: No adverse reaction; IV Status: Completed infusion; IV Intake: jl7 1000ml 09:55 Drug: Magnesium Sulfate 2 grams Route: IVPB; Infused Over: 2 hrs; Site: left forearm; jl7 11:55 Follow up: IV Status: Completed infusion jl7 10:00 Drug: Cefepime 1 grams Route: IVPB; Rate: 200 ml/hr; Infused Over: 30 mins; Site: right jl7 antecubital; 10:03 Follow up: Response: No adverse reaction; IV Status: Completed infusion jl7 10:15 Drug: NS 0.9% 1000 ml Route: IV; Rate: 1 bolus; Site: left forearm; jl7 11:25 Follow up: Response: No adverse reaction; IV Status: Completed infusion; IV Intake: jl7 1000ml 10:45 Drug: Cefepime 1 grams Route: IVPB; Rate: 200 ml/hr; Infused Over: 30 mins; Site: right jl7 antecubital; 10:48 Follow up: Response: No adverse reaction; IV Status: Completed infusion jl7 10:50 Drug: vancoMYCIN 1 grams Route: IVPB; Infused Over: 2 hrs; Site: right hand; jl7 12:31 Follow up: IV Status: Infusion continued upon admission jl7 Disposition: 06/04/20 10:00 Hospitalization ordered by Magalys Gordillo for Inpatient Admission. Preliminary diagnosis are Severe sepsis without septic shock, Unspecified kidney failure - acute on chronic, Weakness - sp endarterectomy , Hypomagnesemia. - Bed requested for Telemetry/MedSurg (Inpatient). - Status is Inpatient Admission. jl7 - Condition is Fair. - Problem is new. - Symptoms have improved. Signatures: Dispatcher [employer] EDMS Desmond, Melina, RN RN kl Agustin, Holden, MD MD josi Rex, Jenise, RN RN iw Castellanos, Jahala, RN RN jl7 Corrections: (The following items were deleted from the chart) 10:06 08:39 CORONAVIRUS+MR.LAB.AIDEEZ ordered. EDWI EDWI 10:12 10:00 Hospitalization Ordered by Magalys Gordillo MD for Inpatient Admission. Preliminary josi diagnosis is Severe sepsis without septic shock; Unspecified kidney failure - acute on chronic; Weakness - sp endarterectomy . Bed requested for Telemetry/MedSurg (Inpatient). Status is Inpatient Admission. Condition is Fair. Problem is new. Symptoms have improved. [facility] 11:49 10:12 06/04/2020 10:00 Hospitalization Ordered by Magalys Gordillo MD for Inpatient kl Admission. Preliminary diagnosis is Severe sepsis without septic shock; Unspecified kidney failure - acute on chronic; Weakness - sp endarterectomy ; Hypomagnesemia. Bed requested for Telemetry/MedSurg (Inpatient). Status is Inpatient Admission. Condition is Fair. Problem is new. Symptoms have improved. [facility] 13:00 11:49 06/04/2020 10:00 Hospitalization Ordered by Magalys Gordillo MD for Inpatient jl7 Admission. Preliminary diagnosis is Severe sepsis without septic shock; Unspecified kidney failure - acute on chronic; Weakness - sp endarterectomy ; Hypomagnesemia. Bed requested for Telemetry/MedSurg (Inpatient). Status is Inpatient Admission. Condition is Fair. Problem is new. Symptoms have improved. kl
--- NOTE | 2020-06-04 10:01 | ER ---
Nurse's Notes [facility] Name: Alexander Walker Age: 64 yrs Sex: Male : 1955 Arrival Date: 06/04/2020 Time: 08:25 Bed 4 Private MD: Diagnosis: Severe sepsis without septic shock;Unspecified kidney failure-acute on chronic;Weakness-sp endarterectomy ;Hypomagnesemia Presentation: 06/04 08:25 Chief complaint: EMS states: Chest and abdominal pressure since this morning; had a iw endarterectomy last . Coronavirus screen: Client denies travel out of the [place] in the last 14 days. At this time, the client does not indicate any symptoms associated with coronavirus-19. Ebola Screen: No symptoms or risks identified at this time. 08:25 Method Of Arrival: EMS: [facility] iw 08:25 Initial Sepsis Screen: Does the patient meet any 2 criteria? No. Patient's initial iw sepsis screen is negative. Does the patient have a suspected source of infection? No. Patient's initial sepsis screen is negative. Risk Assessment: Do you want to hurt yourself or someone else? Patient reports no desire to harm self or others. Onset of symptoms was June 04, 2020. Care prior to arrival: Medication(s) given: Normal saline infusion, 100 mL IV initiated. 20 GA, in the right antecubital area, Glucose check: 120 Oxygen administered. via nasal cannula. Transition of care: patient was not received from another setting of care. 08:25 Acuity: RENY 2 iw Triage Assessment: 08:25 General: Appears in no apparent distress. uncomfortable, Behavior is calm, cooperative, iw appropriate for age. Pain: Complains of pain in mid-sternal area and abdomen Pain does not radiate. Pain currently is 3 out of 10 on a pain scale. Quality of pain is described as pressure, Pain began suddenly, Is continuous. Neuro: Level of Consciousness is awake, alert, obeys commands, Oriented to person, place, time, situation. Cardiovascular: Patient's skin is warm and dry. Respiratory: Airway is patent Respiratory effort is even, unlabored, Respiratory pattern is regular, symmetrical. GI: Abdomen is round non-distended. Derm: Skin is dry, Skin is pale, Skin temperature is cool. Historical: - Allergies: 09:15 Ciprofloxacin; iw 09:15 Latex, Natural Rubber; iw - Home Meds: 09:15 glyburide-metformin 5-500 mg Oral tab 1 tab 2 times per day [Active]; Trulicity 1.5 iw mg/0.5 mL subcutaneous pnij 0.5 mL once wkly [Active]; Lantus 100 unit/mL Sub-Q soln 35 unit daily [Active]; Humalog 100 unit/mL Sub-Q soln 13 unit three times a day [Active]; hydrochlorothiazide 25 mg Oral tab 1 tab once daily [Active]; losartan 100 mg Oral tab 1 tab once daily [Active]; Bystolic 20 mg oral tab 1 tab once daily [Active]; clopidogrel 75 mg Oral tab 1 tab once daily [Active]; rosuvastatin 10 mg Oral tab 1 tab once daily [Active]; Dexilant 60 mg oral CpDB 1 cap once daily [Active]; duloxetine 30 mg oral cpDR 1 cap 2 times per day [Active]; Folbee 2.5-25-1 mg Oral tab 1 tab once daily [Active]; aspirin 81 mg Oral TbEC 1 tab once daily [Active]; - PMHx: 09:15 Diabetes - IDDM; Hypertension; Hyperlipidemia; GERD; Neuropathy; Anxiety; iw - PSHx: :15 CABG; Angioplasty; Heart stents; Carotid surgery; iw - Immunization history:: Adult Immunizations up to date. - Social history:: Smoking status: Patient denies any tobacco usage or history of. Patient uses alcohol, on a daily basis. "2 beers a night". - Family history:: not pertinent. Screenin:25 Abuse screen: Denies threats or abuse. Denies injuries from another. Nutritional iw screening: No deficits noted. Tuberculosis screening: No symptoms or risk factors identified. Fall Risk IV access (20 points). Assessment: 08:30 General: See triage assessment. jl7 09:25 Reassessment: Pt unable to provide urine sample at this time. iw 09:55 Reassessment: Bladder scan showed 347 mL's; VO for straight cath; straight cath jl7 completed, urine sample obtained, pt tolerated well. Vital Signs: 08:25 BP 142 / 70; Pulse 100; Resp 19; Temp 98.6; Pulse Ox 94% ; Weight 113.4 kg; Height 0 iw ft. 1 in. (3 cm); 09:25 BP 135 / 56; Pulse 100; Resp 20 S; Pulse Ox 98% on 2 lpm NC; iw 10:39 BP 110 / 59; Pulse 94; Resp 19; Pulse Ox 95% on 2 lpm NC; jl7 12:32 BP 107 / 61; Pulse 83; Resp 14; Pulse Ox 98% on 2 lpm NC; jl7 08:25 Body Mass Index 482029.88 (113.40 kg, 3 cm) iw ED Course: 08:25 Patient arrived in ED. iw 08:25 Arm band placed on right wrist. iw 08:26 Holden Velez MD is Attending Physician. josi 08:30 Patient has correct armband on for positive identification. Placed in gown. Bed in low iw position. Call light in reach. Side rails up X2. associate director data & analytics on. Pulse ox on. NIBP on. Warm blanket given. 08:40 First set of blood cultures drawn by me. Patient maintains SpO2 saturation greater than iw 95% on room air. 08:48 Inserted saline lock: 20 gauge in left forearm, using aseptic technique. Blood iw collected. 08:48 Initial lab(s) drawn, by me, sent to lab. Second set of blood cultures drawn. Maintain iw EMS IV. Dressing intact. Good blood return noted. Site clean \\T\\ dry. Gauge \\T\\ site: 20 R AC. 09:00 Jenise Goodman, RN is Primary Nurse. iw 09:09 Triage completed. iw 09:16 XRAY Chest (1 view) In Process Unspecified. EDMS 09:20 Notified ED physician of a critical lab result(s). Lactate 4.4 and Magnesium 1.2. aa5 09:30 Primary Nurse role handed off by Jenise Goodman, RN jl7 09:30 Mickie Castellanos RN is Primary Nurse. jl7 09:33 Flu and/or RSV swab sent to lab. COVID-19 swab sent to lab. jl7 09:50 Bladder scan completed. 347 mL. jl7 09:55 Straight cath inserted, using sterile technique, 16 Fr. Specimen obtained. Returned jl7 clear yellow urine. Patient tolerated well. 09:57 Magalys Gordillo MD is Hospitalizing Provider. josi 11:24 Warm blanket given. em1 11:27 Awaiting bed assignment. jl7 11:30 Inserted saline lock: 20 gauge in right hand, using aseptic technique. jl7 12:17 No provider procedures requiring assistance completed. Patient admitted, IV remains in jl7 place. intact, No redness/swelling at site. Administered Medications: 09:00 Drug: NS 0.9% 1000 ml Route: IV; Rate: 1 bolus; Site: right antecubital; iw 10:00 Follow up: IV Status: Completed infusion; IV Intake: 1000ml jl7 09:00 Drug: NS 0.9% 1000 ml Route: IV; Rate: 125 ml/hr; Site: right antecubital; iw 11:26 Follow up: IV Status: Infusion continued upon admission jl7 09:50 Drug: NS 0.9% 1000 ml Route: IV; Rate: 1 bolus; Site: left forearm; jl7 10:50 Follow up: Response: No adverse reaction; IV Status: Completed infusion; IV Intake: jl7 1000ml 09:55 Drug: Magnesium Sulfate 2 grams Route: IVPB; Infused Over: 2 hrs; Site: left forearm; jl7 11:55 Follow up: IV Status: Completed infusion jl7 10:00 Drug: Cefepime 1 grams Route: IVPB; Rate: 200 ml/hr; Infused Over: 30 mins; Site: right jl7 antecubital; 10:03 Follow up: Response: No adverse reaction; IV Status: Completed infusion jl7 10:15 Drug: NS 0.9% 1000 ml Route: IV; Rate: 1 bolus; Site: left forearm; jl7 11:25 Follow up: Response: No adverse reaction; IV Status: Completed infusion; IV Intake: jl7 1000ml 10:45 Drug: Cefepime 1 grams Route: IVPB; Rate: 200 ml/hr; Infused Over: 30 mins; Site: right jl7 antecubital; 10:48 Follow up: Response: No adverse reaction; IV Status: Completed infusion jl7 10:50 Drug: vancoMYCIN 1 grams Route: IVPB; Infused Over: 2 hrs; Site: right hand; jl7 12:31 Follow up: IV Status: Infusion continued upon admission jl7 Intake: 10:00 IV: 1000ml; Total: 1000ml. jl7 10:50 IV: 1000ml; Total: 2000ml. jl7 11:25 IV: 1000ml; Total: 3000ml. jl7 Outcome: 10:00 Decision to Hospitalize by Provider. josi 12:31 Admitted to Tele accompanied by tech, via stretcher, room 218, with chart, Report jl7 called to PK Mustafa 12:31 Condition: stable 12:31 Discharge instructions given to patient, family, Instructed on the need for admit, Demonstrated understanding of instructions. 13:00 Patient left the ED. jl7 Signatures: Dispatcher [employer] EDHolden Foy MD MD cha Williams, Irene, RN Lucian Vela 1 Cherie Tejeda, PK [place]ITT[place] aa5 Mickie Castellanos RN RN jl7 Corrections: (The following items were deleted from the chart) 10:39 09:55 BP 110 / 59; Pulse 94bpm; Resp 19bpm; Pulse Ox 95% 2 lpm Nasal Cannula; jl7 jl7
[2020-06-04 11:32] LABS: Urine Blood TRACE (NEG); Urine Glucose NEGATIVE (NEG); Urine Protein NEGATIVE (NEG); Urine pH 5.5 (5.0-7.0)
[2020-06-04] MEDS ORDERED: ACETAMINOPHEN 500 MG TAB PO PRN (13:11)
[2020-06-04] MEDS ORDERED: ALPRAZOLAM 0.25 MG TABLET PO PRN (13:11)
[2020-06-04] MEDS ORDERED: MORPHINE 4 MG/ML SYR IV PRN (13:11)
[2020-06-04 13:32] VITALS: BMI 34.8
[2020-06-04] MEDS ORDERED: GLUCAGON 1 MG/VIAL IM PRN (17:21)
[2020-06-04] MEDS ORDERED: D50W 25 GM/50 ML SYRINGE/VIAL IV PRN (17:21)
--- NOTE | 2020-06-04 17:24 | P.HP ---
Certification for Inpatient Patient admitted to: Inpatient With expected LOS: >2 Midnights Patient will require the following post-hospital care: None Practitioner: I am a practitioner with admitting privileges, knowledge of patient current condition, hospital course, and medical plan of care. Services: Services provided to patient in accordance with Admission requirements found in Title 42 Section 412.3 of the Code of Federal Regulations Patient History Date of Service: 06/04/20 Reason for admission: Diffuse rigors; chest pain; status post carotid endarterectomy 6 days prior History of Present Illness: Patient is a 64-year-old gentleman who states he was at home and started having persistent rigors. He went to lay in bed and to try to get it to stop but was unsuccessful. He continued to shake and his came and tried to up checked his pulse and his oxygen saturation but because he was shaking so much she was unable to do so. She called EMS. When he came out there he was having some chest discomfort as well and they brought him into the emergency room. Patient recently had a carotid endarterectomy 6 days ago. The wound looks to be healing okay except for the lower end which appears to be opened slightly. The family denies any drainage but he he has some erythema around that wound. His lactic acid has come back elevated. At this time, he will be admitted for further evaluation. Patient states he is unable to control the shakes when they happen. They have also been happening at night ever since his carotid endarterectomy. Will probably need to further evaluate with MRI and EEG to make sure there is no neurologic insult postoperatively. Patient also was significantly elevated lactate level. Will repeat this level later today. Allergies ciprofloxacin [From Cipro] Allergy (Verified 05/02/20 11:01) Unknown ciprofloxacin HCl [From Cipro] Allergy (Verified 05/02/20 11:01) AMS Latex, Natural Rubber Allergy (Verified 05/02/20 11:01) Rash Home Medications: Aspirin [Aspirin EC] 81 mg PO DAILY 12/29/15 Cetirizine HCl [Zyrtec] 10 mg PO DAILY 12/29/15 Clopidogrel Bisulfate [Plavix] 75 mg PO DAILY 12/29/15 Glyburide/Metformin HCl [Glucovance 5-500 mg Tablet] 2 each PO BID 12/29/15 Losartan Potassium [Cozaar] 100 mg PO DAILY 12/29/15 Multivit-Min/FA/Lycopen/Lutein [Centrum Silver Tablet] 1 each PO DAILY 12/29/15 Nebivolol HCl [Bystolic] 10 mg PO DAILY AT SUPPER 12/29/15 Rosuvastatin [Crestor] 10 mg PO BEDTIME 12/29/15 Dexlansoprazole [Dexilant] 60 mg PO DAILY 06/04/20 Dulaglutide [Trulicity] 1.5 mg SQ SEECOM 06/04/20 Duloxetine HCl 2 tab PO BEDTIME 06/04/20 Folic Acid/Vit B Complex and C [Folbee Plus Tablet] 1 tab PO DAILY 06/04/20 Hydrochlorothiazide 25 mg PO DAILY 06/04/20 Insulin Glargine,Hum.rec.anlog [Lantus] 35 unit SQ DAILY 06/04/20 Insulin Lispro [Humalog] 13 unit SQ TID 06/04/20 - Past Medical/Surgical History Has patient received pneumonia vaccine in the past: Yes Diabetic: Yes -: IDDM -: HPN -: Hyperlipidemia -: GERD -: Neuropathy -: Anxiety -: CABG -: Angioplasty -: Heart stent -: Carotid surgery - Family History Father Medical History: Other (see notes) Notes: of heart attack Mother Medical History: Stroke - Social History Smoking Status: Former smoker Alcohol use: Yes Caffeine use: Yes Place of Residence: Home Review of Systems 10-point ROS is otherwise unremarkable Physical Examination - Vital Signs Temperature: 97 F Blood Pressure: 128/58 Pulse: 82 Respirations: 18 Pulse Ox (%): 99 - Physical Exam General: Alert, In no apparent distress, Oriented x3 HEENT: Atraumatic, PERRLA, Mucous membr. moist/pink, Other (Erythema around the right carotid endarterectomy scar), EOMI, Sclerae nonicteric Neck: Supple, 2+ carotid pulse no bruit, No LAD, Without JVD or thyroid abnormality Respiratory: Clear to auscultation bilaterally, Normal air movement Cardiovascular: Regular rate/rhythm, Normal S1 S2, Systolic murmur Gastrointestinal: Normal bowel sounds, Soft and benign, Non-distended, No tenderness Musculoskeletal: No clubbing, No swelling, No tenderness Integumentary: No rashes Neurological: Normal gait, Normal speech, Normal tone, Sensation intact, Cranial nerves 3-12 intact, Normal affect, Abnormal strength (Generalized weakness) Lymphatics: No axilla or inguinal lymphadenopathy - Studies Laboratory Data (last 24 hrs) 06/04/20 08:48: PT 12.5, INR 1.06 06/04/20 08:48: WBC 4.5, Hgb 14.3, Hct 41.6, Plt Count 218 06/04/20 08:48: Sodium 136, Potassium 4.7, BUN 27 H, Creatinine 1.72 H, Glucose 171 H, Magnesium 1.2 L*, Total Bilirubin 0.9, AST 18, ALT 27, Alkaline Phosphatase 47, Lipase 93 Microbiology Data (last 24 hrs): 06/04/20 08:56 Nasopharnyx Influenza Type A Antigen Screen - Final 06/04/20 08:56 Nasopharnyx Influenza Type B Antigen Screen - Final Assessment & Plan - Problems (Diagnosis) (1) Cellulitis Current Visit: Yes Status: Acute (2) Lactic acidosis Current Visit: Yes Status: Acute (3) S/P carotid endarterectomy Current Visit: Yes Status: Acute (4) Seizures Current Visit: Yes Status: Acute (5) Coarse tremors Current Visit: Yes Status: Acute (6) Rigors Current Visit: Yes Status: Acute (7) Atherosclerotic heart disease of [place] coronary artery with other forms of angina pectoris Current Visit: Yes Status: Acute (8) DM2 (diabetes mellitus, type 2) Current Visit: Yes Status: Acute - Plan 1. Continue with IV antibiotic 2. Continue with local wound care 3. Monitor lactic acid 4. Gentle IV hydration 5. EEG and MRI of the brain 6. Strict blood sugar monitoring 7. Pain control 8. Antipyretics as needed 9. GI and DVT prophylaxis Discharge Plan: Home Plan to discharge in: Greater than 2 days - Advance Directives Does patient have a Living Will: Yes Does patient have a Durable POA for Healthcare: Yes - Code Status/Comfort Care Code Status Assessed: Yes Code Status: Full Code Critical Care: No Time Spent Managing PTS Care (In Minutes): 45
[2020-06-04] MEDS: METOPROLOL TAR 25 MG TAB PO SCH (17:42)
[2020-06-04] MEDS ORDERED: VANCOMYCIN 1.25 GM in NA CHLORIDE 0.9% 250 ML IVPB SCH (18:00)
[2020-06-04] MEDS: PIPER/TAZO/NS 3.375gm 3.375 GM/100 ML BAG IVPB SCH (18:17)
--- NOTE | 2020-06-04 20:03 | RAD REPORT ---
EXAM DESCRIPTION: MRI - Brain Wo Cont - 06/04/2020 7:46 pm CLINICAL HISTORY: Seizure COMPARISON: November 2019 TECHNIQUE: Axial, sagittal, and coronal magnetic images of the brain were obtained. Contrast was not requested FINDINGS: No abnormal signal is present within the brain. Diffusion-weighted/ADC mapping does not reveal evidence of acute infarction. The ventricles are normal caliber. 3.5 x 2 centimeter fluid collection right temporal fossa represents arachnoid cyst Hippocampal gyri normal caliber and signal Fluid within the sinuses/mastoids is not noted. Mucus retention cyst right maxillary sinus. Chronic s ignal left frontal sinus IMPRESSION: No acute abnormality is displayed
[2020-06-04] MEDS ORDERED: VANCOMYCIN/NS 1 gm 1 GM/250 ML BAG IVPB ONE (21:00)
[2020-06-04] MEDS: ROSUVASTATIN 10 MG TAB PO SCH (21:21)
[2020-06-05] MEDS: PIPER/TAZO/NS 3.375gm 3.375 GM/100 ML BAG IVPB SCH ×3 (00:36→16:04)
[2020-06-05 04:26] LABS: Absolute Lymphocytes (CBC) 0.5 K/uL (0.7-4.9); Basophils % 0.6 % (0-1.3); Hematocrit 33.4 % (39.6-49.0); Lymphocytes % 4.4 % (15.3-44.8); MPV 9.2 fL (7.6-11.3); RBC Red Blood Cell Count 3.77 M/uL (4.33-5.43)
[2020-06-05 04:38] LABS: Potassium 4.5 mmol/L (3.5-5.1)
[2020-06-05 05:32] LABS: Blood Morphology Comment NOT SEEN (NOT SEEN); Platelet Estimate ADEQ
[2020-06-05] MEDS: METOPROLOL TAR 25 MG TAB PO SCH (06:00)
--- NOTE | 2020-06-05 07:28 | EKG ---
Test Date: 2020-06-04 Test Time: 08:26:12 Shampoo Person: FEDERICO MEASUREMENT RESULTS: Intervals: Rate: 102 DE: 156 QRSD: 140 QT: 364 QTc: 474 [place]: P: 56 DE: 156 QRS: -89 T: 64 INTERPRETIVE STATEMENTS: Sinus tachycardia Left axis deviation Right bundle branch block Septal infarct, age undetermined Abnormal ECG Compared to ECG 05/02/2020 11:20:30 Myocardial infarct finding now present Sinus bradycardia no longer present Electronically Signed On 06-05-20 07:25:00 CDT by Dion Wagner
--- NOTE | 2020-06-05 07:36 | ECHO ---
HEIGHT: 5 ft 11 in WEIGHT: 250 lb 0 oz DATE OF STUDY: 06/04/[address]: Magalys Gordillo MD 2-DIMENSIONAL: YES M.MODE: YES DOPPLER: YES COLOR FLOW: YES TDS: PORTABLE: DEFINITY: BUBBLE STUDY: DIAGNOSIS: CHEST PAIN/ RULE OUT ACUTE CORNARY SYNDROME CARDIAC HISTORY: CATHERIZATION: YES SURGERY: YES PROSTHETIC VALVE: NO PACEMAKER: NO MEASUREMENTS (cm) DIASTOLIC (NORMALS) SYSTOLIC (NORMALS) IVSd 1.1 (0.6-1.2) LA Diam 3.3 (1.9-4.0) LVEF 64% LVIDd 4.9 (3.5-5.7) LVIDs 3.2 (2.0-3.5) %FS 35% LVPWd 1.3 (0.6-1.2) Ao Diam 3.2 (2.0-3.7) 2 DIMENSIONAL ASSESSMENT: RIGHT ATRIUM: NORMAL LEFT ATRIUM: NORMAL RIGHT VENTRICLE: NORMAL LEFT VENTRICLE: NORMAL TRICUSPID VALVE: NORMAL MITRAL VALVE: MITRAL ANNULAR CALCIFICATION PULMONIC VALVE: NORMAL AORTIC VALVE: SCLEROSIS PERICARDIAL EFFUSION: NONE AORTIC ROOT: NORMAL LEFT VENTRICULAR WALL MOTION: PARADOXICAL SEPTAL MOTION DOPPLER/COLOR FLOW: NORMAL COMMENTS: TECHNICALLY DIFFICULT STUDY. GROSSLY NORMAL EJECTION FRACTION AND LEFT VENTRICULAR SIZE. PARADOXICAL SEPTUM. MITRAL ANNULAR CALCIFICATION. AORTIC SCLEROSIS. TECHNOLOGIST: ARVIND GUY
[2020-06-05] MEDS ORDERED: ASPIRIN EC 81 MG TAB PO SCH (09:00)
[2020-06-05] MEDS: INSULIN GLARGINE 100 UNITS/ML SQ SCH (09:17)
[2020-06-05] MEDS: ENOXAPARIN 40 MG/0.4 ML SQ SCH (09:19)
[2020-06-05] MEDS: ASPIRIN EC 81 MG TAB PO SCH (09:19)
[2020-06-05] MEDS: CLOPIDOGREL 75 MG TABLET PO SCH (09:19)
--- NOTE | 2020-06-05 10:40 | CON ---
Date of Consultation: 06/05/2020 Reason For Consultation: Chest pain. History Of Present Illness: Mr. Walker is a 64-year-old male very well known to me fr om previous office visits and admission. He came in with rigors and chills with elevated lactic acid consistent with sepsis. He is on Zosyn and vancomycin and is feeling better. He had a white count of 12,000. His creatinine was 1.27. He has an EKG showed right bundle-branch block with a negative chest x-ray. His pain was 3 days ago and it was very mild left upper shoulder pain that is definitel y noncardiac in nature. His troponin and BNPs are negative. Denied any nausea, vomiting, diaphoresi s, PND, orthopnea, pedal edema, palpitation, or syncope. Past Medical History: His include CABG and PCI. Six days ago, he had a right carotid endarterectomy . He has peripheral vascular disease. Recent angiography shows a 70% stenosis in the right fem-pop. He has diabetes, hypertension, dyslipidemia, gastroesophageal reflux disease, anxiety, and neuropat hy. Allergies: TO CIPRO AND LATEX. Medications: Include Bystolic, losartan, hydrochlorothiazide, insulin, aspirin, Crestor, Dexilant, P lavix, duloxetine, glyburide, and metformin. Review of Systems: Negative. Social History: Negative. Family History: Positive for CAD and diabetes. Physical Examination: General: He was in no acute distress. Vital Signs: Stable sinus rhythm, afebrile. HEENT: Negative. Neck: Supple with no bruit. His right neck incision appears to be intact and dry and not infected. Chest: Clear. Cardiac: Revealed a regular rhythm and rate. No murmurs, gallops, or rubs. Abdomen: Benign. Extremities: Revealed no clubbing, cyanosis, or edema. Neurologic: Nonfocal. Pulses were distally decreased bilaterally. Skin: Dry and intact. Diagnostic Data: As stated earlier. Impression And Plan: 1.Rigors and chills, elevated lactic acid, elevated white count, elevated creatinine suggestive of d ehydration and sepsis. He is on Zosyn and vancomycin. I would continue antibiotics. Echocardiogram was normal ejection fraction. Paradoxical septal wall motion. No endocarditis. The patient can go home on p.o. antibiotics whenever it is okay with Dr. Gordillo. 2.Atypical chest pain recently. Patient had Lexiscan that was unremarkable. I will see him in the office in the near future. Echocardiogram is normal. Troponin is negative. BNP is negative. Balaji nue present regimen. 3.Coronary artery disease, status post coronary artery bypass graft and PCI, stable. 4.History of recent cerebrovascular accident on the right by Dr. Hill, stable, not infected. 5.Peripheral vascular disease status post right femoral-popliteal with a 70% stenosis and it may nee d angioplasty and stent down the road if he has claudication. 6.Diabetes. 7.Hypertension, well controlled. 8.Dyslipidemia, well controlled. 9.Gastroesophageal reflux disease. 10.Anxiety. 11.Neuropathy. NB/MODL Voice ID: [id number] Report ID: [id number]
--- NOTE | 2020-06-05 15:06 | P.PN ---
Subjective Date of Service: 06/05/20 Subjective: No new changes, No C/O voiced, Improving PATIENT IS FEELING BETTER. SYMPTOMS ARE STARTING TO IMPROVE. ERYTHEMA OF THE NECK IS IMPROVED WELL. Review of Systems 10-point ROS is otherwise unremarkable Physical Examination - Vital Signs Temperature: 97 F Blood Pressure: 137/65 Pulse: 74 Respirations: 20 Pulse Ox (%): 96 - Physical Exam General: Alert, In no apparent distress, Oriented x3 Respiratory: Clear to auscultation bilaterally, Normal air movement Cardiovascular: Regular rate/rhythm, Normal S1 S2, No murmurs Gastrointestinal: Normal bowel sounds, Soft and benign, Non-distended, No tenderness Musculoskeletal: No tenderness Integumentary: Other (PATIENT WITH MINIMAL ERYTHEMA. WOUND CONTINUES TO IMPR OVE.) Neurological: Normal strength at 5/5 x4 extr, Sensation intact, Cranial nerves 3-12 intact Lymphatics: No axilla or inguinal lymphadenopathy - Studies Microbiology Data (last 24 hrs): 06/04/20 10:23 Clean Catch Urine [place] Count - Final >100,000 CFU/ML. 06/04/20 08:56 Nasopharnyx Influenza Type A Antigen Screen - Final 06/04/20 08:56 Nasopharnyx Influenza Type B Antigen Screen - Final Medications List Reviewed: Yes Assessment & Plan - Problems (Diagnosis) (1) Cellulitis Current Visit: Yes Status: Acute (2) Lactic acidosis Current Visit: Yes Status: Acute (3) S/P carotid endarterectomy Current Visit: Yes Status: Acute (4) Seizures Current Visit: Yes Status: Acute (5) Coarse tremors Current Visit: Yes Status: Acute (6) Rigors Current Visit: Yes Status: Acute (7) Atherosclerotic heart disease of [place] coronary artery with other forms of angina pectoris Current Visit: Yes Status: Acute (8) DM2 (diabetes mellitus, type 2) Current Visit: Yes Status: Acute (9) UTI (urinary tract infection) Current Visit: Yes Status: Acute Qualifiers: Urinary tract infection type: acute cystitis (10) Bacteremia Current Visit: Yes Status: Acute - Plan Continue with plan of care as mentioned below 1. Continue with IV antibiotic 2. Continue with local wound care of the right carotid endarterectomy scar 3. Monitor lactic acid 4. Gentle IV hydration 5. MRI of the brain unremarkable; EEG no epileptiform discharges for preliminary report. Most likely rigors 6. Strict blood sugar monitoring 7. Pain control 8. Antipyretics as needed 9. GI and DVT prophylaxis Discharge Plan: Home Plan to discharge in: Greater than 2 days - Advance Directives Does patient have a Living Will: Yes Does patient have a Durable POA for Healthcare: Yes - Code Status/Comfort Care Code Status: Full Code Critical Care: No Time Spent Managing PTS Care (In Minutes): 35
[2020-06-05] MEDS ORDERED: NEBIVOLOL HCL 20 MG TABLET PO SCH (17:00)
[2020-06-05] MEDS ORDERED: NEBIVOLOL HCL 5 MG TAB PO SCH (17:00)
[2020-06-05] MEDS: ROSUVASTATIN 10 MG TAB PO SCH (21:23)
[2020-06-06] MEDS: PIPER/TAZO/NS 3.375gm 3.375 GM/100 ML BAG IVPB SCH ×2 (00:34→08:11)
[2020-06-06 03:19] VITALS: O2SAT 97
[2020-06-06 06:30] LABS: Absolute Lymphocytes (CBC) 1.1 K/uL (0.7-4.9); Basophils % 0.6 % (0-1.3); Lymphocytes % 14.3 % (15.3-44.8); MPV 8.9 fL (7.6-11.3); RBC Red Blood Cell Count 4.04 M/uL (4.33-5.43)
[2020-06-06 06:49] LABS: Albumin 3.2 g/dL (3.4-5.0); Bilirubin Total 0.4 mg/dL (0.2-1.0); Magnesium 1.7 mg/dL (1.8-2.4); Phosphorus 2.5 mg/dL (2.5-4.9); Potassium 4.3 mmol/L (3.5-5.1)
[2020-06-06] MEDS: ASPIRIN EC 81 MG TAB PO SCH (08:11)
[2020-06-06] MEDS: ENOXAPARIN 40 MG/0.4 ML SQ SCH (08:11)
[2020-06-06] MEDS: CLOPIDOGREL 75 MG TABLET PO SCH (08:11)
[2020-06-06] MEDS: INSULIN GLARGINE 100 UNITS/ML SQ SCH (08:12)
[2020-06-06] MEDS ORDERED: VANCOMYCIN 2 GM in NA CHLORIDE 0.9% 500 ML IVPB SCH (09:00)
[2020-06-06 12:03] VITALS: BP 133/65; TEMP 96.5
[2020-06-07] MEDS ORDERED: VANCOMYCIN 2 GM in NA CHLORIDE 0.9% 500 ML IVPB SCH (03:00)
--- NOTE | 2020-06-07 15:07 | P.DS ---
Discharge Date: 06/06/20 Disposition: ROUTINE DISCHARGE Discharge Condition: GOOD Reason for Admission: Diffuse rigors; chest pain; status post carotid endarterectomy 6 days prior - Problems (1) Cellulitis Status: Acute (2) Lactic acidosis Status: Acute (3) S/P carotid endarterectomy Status: Acute (4) Seizures Status: Acute (5) Coarse tremors Status: Acute (6) Rigors Status: Acute (7) Atherosclerotic heart disease of eyak coronary artery with other forms of angina pectoris Status: Acute (8) DM2 (diabetes mellitus, type 2) Status: Acute (9) UTI (urinary tract infection) Status: Acute Qualifiers: Urinary tract infection type: acute cystitis (10) Bacteremia Status: Acute Brief History of Present Illness: Patient is a 64-year-old gentleman who states he was at home and started having persistent rigors. He went to lay in bed and to try to get it to stop but was unsuccessful. He continued to shake and his came and tried to up checked his pulse and his oxygen saturation but because he was shaking so much she was unable to do so. She called EMS. When he came out there he was having some chest discomfort as well and they brought him into the emergency room. Patient recently had a carotid endarterectomy 6 days ago. The wound looks to be healing okay except for the lower end which appears to be opened slightly. The family denies any drainage but he he has some erythema around that wound. His lactic acid has come back elevated. At this time, he will be admitted for further evaluation. Patient states he is unable to control the shakes when they happen. They have also been happening at night ever since his carotid endarterectomy. Will probably need to further evaluate with MRI and EEG to make sure there is no neurologic insult postoperatively. Patient also was significantly elevated lactate level. Will repeat this level later today. Hospital Course: Patient continues to do well with no new complaints. Patient had positive UTI with gram-negative rods-Citrobacter. Patient also has gram-negative rods and blood culture. Clinically, patient appears to be doing well. Incision around the carotid endarterectomy looks to be well healed. At this time, patient is stable for discharge home with an outpt follow-up. Vital Signs/Physical Exam: Temp Pulse Resp BP Pulse Ox 96.5 F L 70 18 133/65 99 06/06/20 12:00 06/06/20 12:00 06/06/20 12:00 06/06/20 12:00 06/06/20 12:00 General: Alert, In no apparent distress, Oriented x3 Laboratory Data at Discharge: WBC 7.6 K/uL (4.3-10.9) D 06/06/20 06:16 Hgb 12.5 g/dL (13.6-17.9) L 06/06/20 06:16 Hct 36.0 % (39.6-49.0) L 06/06/20 06:16 Plt Count 187 K/uL (152-406) 06/06/20 06:16 PT 12.5 SECONDS (9.5-12.5) 06/04/20 08:48 INR 1.06 06/04/20 08:48 Sodium 140 mmol/L (136-145) 06/06/20 06:16 Potassium 4.3 mmol/L (3.5-5.1) 06/06/20 06:16 BUN 15 mg/dL (7-18) 06/06/20 06:16 Creatinine 1.10 mg/dL (0.55-1.3) 06/06/20 06:16 Glucose 159 mg/dL (74-106) H 06/06/20 06:16 Phosphorus 2.5 mg/dL (2.5-4.9) 06/06/20 06:16 Magnesium 1.7 mg/dL (1.8-2.4) L 06/06/20 06:16 Total Bilirubin 0.4 mg/dL (0.2-1.0) 06/06/20 06:16 AST 23 U/L (15-37) 06/06/20 06:16 ALT 30 U/L (12-78) 06/06/20 06:16 Alkaline Phosphatase 43 U/L (45-117) L 06/06/20 06:16 Troponin I < 0.02 ng/mL (0.0-0.045) 06/05/20 00:23 Triglycerides Cancelled 06/05/20 06:00 Cholesterol Cancelled 06/05/20 06:00 HDL Cholesterol Cancelled 06/05/20 06:00 Cholesterol/HDL Ratio Cancelled 06/05/20 06:00 Lipase 93 U/L (73-393) 06/04/20 08:48 Home Medications: Aspirin [Aspirin EC 81 MG] 81 mg PO DAILY 12/29/15 Cetirizine HCl [Zyrtec*] 10 mg PO DAILY 12/29/15 Clopidogrel Bisulfate [Plavix*] 75 mg PO DAILY 12/29/15 Glyburide/Metformin HCl [Glucovance 5-500 mg Tablet] 2 each PO BID 12/29/15 Losartan Potassium [Cozaar] 100 mg PO DAILY 12/29/15 Multivit-Min/FA/Lycopen/Lutein [Centrum Silver Tablet] 1 each PO DAILY 12/29/15 Nebivolol HCl [Bystolic*] 10 mg PO DAILY AT SUPPER 12/29/15 Rosuvastatin [Crestor*] 10 mg PO BEDTIME 12/29/15 Dexlansoprazole [Dexilant] 60 mg PO DAILY 06/04/20 Dulaglutide [Trulicity] 1.5 mg SQ SEECOM 06/04/20 Duloxetine HCl 2 tab PO BEDTIME 06/04/20 Folic Acid/Vit B Complex and C [Folbee Plus Tablet] 1 tab PO DAILY 06/04/20 Hydrochlorothiazide 25 mg PO DAILY 06/04/20 Insulin Glargine,Hum.rec.anlog [Lantus] 35 unit SQ DAILY 06/04/20 Insulin Lispro [Humalog] 13 unit SQ TID 06/04/20 Cefdinir [Omnicef] 300 mg PO BID #14 capsule 06/06/20 New Medications: Cefdinir [Omnicef] 300 mg PO BID #14 capsule Patient Discharge Instructions: -OK TO DC IV AND DC HOME. -FOLLOW-UP WITH PRIMARY CARE PROVIDER IN 1-2 WEEKS. -FOLLOW-UP WITH VASCULAR SURGEON SCHEDULED. -FOLLOW-UP WITH CARDIOLOGY. -FOLLOW WITH NEUROLOGIST IN 1-2 WEEKS. -RETURN TO THE ER IF SYMPTOMS WORSEN. -CALL or TEXT DR. STRAUSS AT [phone] IF ANY QUESTIONS REGARDING HOSPITAL STAY. -PLEASE CALL THE FLOOR AT [phone] IF ANY MEDICATION OR NURSING QUESTIONS. Diet: AHA Activity: Fall precautions Followup: Sophia Mccracken DO [Primary Care Provider] - 1-2 Weeks (call to schedule an appointment ) Time spent managing pt's care (in minutes): 35
--- NOTE | 2020-06-11 14:53 | EEG ---
CHART: [id number] TEST ID#: [id number] DATE OF STUDY: 06/03/2020 THE EEG WAS RECORDED PORTABLE IN THE PATIENT'S ROOM ON A 17 CHANNEL MACHINE. ELECTRODES WERE APPLIED IN THE USUAL MANNER USING THE INTERNATIONAL 10-20 SYSTEM. THE WAKING BACKGROUND RHYTHM IN THIS RECORD CONSISTS OF FAIRLY WELL DEVELOPED AND FAIRLY WELL ORGANIZED WAVES OF 9.5 HZ., MAXIMAL IN THE POSTERIOR HEAD REGIONS WHICH ATTENUATE NORMALLY WITH EYE OPENING. LOW-VOLTGE 18-22 HZ ACTIVITY IS EXPRESSED IN THE FRONTAL REGIONS. THERE ARE NO FOCAL OR LATERALIZING FEATURES. NO EPILEPTIFORM ACTIVITY APPEARS. SLEEP DID NOT OCCUR. HYPERVENTILATION WAS NOT PERFORMED. PHOTIC STIMULATION PRODUCED NO DRIVING BILATERALLY. IMPRESSION: NORMAL EEG FOR THE AGE OF THE PATIENT IN [place] AND [place] STATES.
== END 2020-06-06 13:27 | disposition home or self-care (01) | DRG 872 ==
LOC: ER 08:21 → 2ND 12:21 → OBSVTOIN 12:21
PROVIDERS: ADMIT Hospitalist; ATTEND Hospitalist
DX: A41.9 Sepsis, unspecified organism (principal); E87.2 Acidosis; L03.90 Cellulitis, unspecified; N30.00 Acute cystitis without hematuria; I10 Essential (primary) hypertension; E78.5 Hyperlipidemia, unspecified; K21.9 Gastro-esophageal reflux disease without esophagitis; E11.40 Type 2 diabetes mellitus with diabetic neuropathy, unspecified; G25.2 Other specified forms of tremor; I25.118 Atherosclerotic heart disease of native coronary artery with other forms of angina pectoris; E11.51 Type 2 diabetes mellitus with diabetic peripheral angiopathy without gangrene; F41.9 Anxiety disorder, unspecified; E86.0 Dehydration; R56.9 Unspecified convulsions; R68.89 Other general symptoms and signs; Z79.4 Long term (current) use of insulin; Z79.82 Long term (current) use of aspirin; Z95.5 Presence of coronary angioplasty implant and graft; Z88.1 Allergy status to other antibiotic agents; Z87.891 Personal history of nicotine dependence; Z79.899 Other long term (current) drug therapy; Z79.02 Long term (current) use of antithrombotics/antiplatelets; Z91.040 Latex allergy status; Z20.828 Contact with and (suspected) exposure to other viral communicable diseases
CPT/HCPCS: 36415; 51702; 70551; 71045; 80048; 80053; 80061; 80076; 80202; 81003; 82947; 83605; 83690; 83735; 83880; 84100; 84145; 84484; 85025; 85610; 87040; 87077; 87086; 87088; 87186; 87205; 87804; 93005; 93306; 95816; 99285; J0692; J1650; J1815; J2543; J3370; J3475; J7030; J7040; U0003

== ENCOUNTER 2020-07-24 08:43 | Day surgery (SDC) | payer BC ==
[2020-07-18 11:29] LABS: Potassium 4.2 mmol/L (3.5-5.1)
[2020-07-18 11:30] LABS: Absolute Lymphocytes (CBC) 1.8 K/uL (0.7-4.9); Basophils % 0.9 % (0-1.3); Hematocrit 40.1 % (39.6-49.0); Lymphocytes % 22.2 % (15.3-44.8); MPV 9.4 fL (7.6-11.3); RBC Red Blood Cell Count 4.47 M/uL (4.33-5.43)
[2020-07-18 11:31] LABS: Protime INR 1.01
--- NOTE | 2020-07-18 13:37 | EKG ---
Test Date: 2020-07-18 Test Time: 10:46:54 Cooler Servicer: KATHE MEASUREMENT RESULTS: Intervals: Rate: 61 SC: 150 QRSD: 168 QT: 456 QTc: 459 Johnson: P: 52 SC: 150 QRS: -72 T: 48 INTERPRETIVE STATEMENTS: Sinus rhythm with occasional premature ventricular complexes Left axis deviation Right bundle branch block Abnormal ECG Compared to ECG 06/04/2020 08:26:12 Ventricular premature complex(es) now present Sinus tachycardia no longer present Myocardial infarct finding no longer present Electronically Signed On 07-18-20 13:36:50 ITALIAN LECTURER by Dion Wagner
[2020-07-24] MEDS ORDERED: NA CHLORIDE 0.9% 500 ML ONE (09:04)
--- OUTSIDE RECORDS SUMMARY | 2020-07-24 09:08 | XMS REPORT | Clinical Summary ---
:1955 Author Organization [facility] Address [address] [place] [address] Care Team Providers Name Role Phone Elvi [...] (vial) the skin nightly. UNABLE TO FIND [facility] OTC 0 Act mima - 1 [...] daily. Polyneuropathy, Paresthesia, Bilateral carpal tunnel syndrome DULoxetine (Cymbalta) Take 2 tabs 270 capsule 1 02/08/20 Active 30 MG at night x 1 20 capsuleIndications: month, then Polyneuropathy, increase to Paresthesia 3 tabs at night and continue primidone (MYSOLINE) 50 Wk 1: 2 90 tablet 2 07/23/20 Active MG tabletIndications: tablet at 20 Essential tremor bedtime Wk 2: 1 tablet at bedtime Wk 3: 1 tablet twice a day Wk 4: 1 tablet three times a day and continue. pantoprazole (PROTONIX) Take 40 mg 0 03/27/2009/26 Discontinued 40 MG EC tablet by mouth 2 19 020 (Th erapy (two) times complete d) a day. donepezil (ARICEPT) 5 Take 1 30 tablet 0 06/01/20 Discontinued MG tabletIndications: tablet (5 mg 19 020 (Therapy Memory loss or total) by compl eted) impairment mouth nightly. donepezil (ARICEPT) 10 Take 1 30 tablet 3 06/01/20 Discontinued MG tabletIndications: tablet (10 19 020 (Therapy Memory loss or mg total) by co mpleted) impairment mouth nightly. memantine (NAMENDA) 5 Wk 1: 5 mg 84 tablet 0 09/26/19 Discontinued MG tabletIndications: at night W2: 20 020 (Dose Memory loss or 5 mg twice adju stment) impairment daily W3:10 mg am 5 mg night memantine (NAMENDA) 10 Take 1 60 tablet 11 09/26/19 Discontinued MG tabletIndications: tablet (10 20 020 (Therapy Memory loss or mg total) by co mpleted) impairment mouth 2 (two) times a day. DULoxetine (CYMBALTA) Take 1 30 capsule 6 09/26/19 Discontinued 30 MG capsule (30 20 020 (Reorder ) capsuleIndications: mg total) by Polyneuropathy, mouth daily. Paresthesia ibuprofen (ADVIL) 600 Take 600 mg 0 Discontinued MG tablet by mouth 020 (Therapy every 6 completed) (six) hours as needed. diazePAM (VALIUM) 5 MG Take 5 mg by 0 01/14 01/14 Discontinued tablet mouth every 020 (Therapy 6 (six) completed) hours as needed. DULoxetine (Cymbalta) Take 1 30 capsule 6 12/04/19 Discontinued 30 MG capsule (30 20 020 (Reorder ) capsuleIndications: mg total) by Polyneuropathy, mouth daily. Paresthesia Active Problems No known active problems Encounters Date Type Specialty Care Team Description 07/23/2020 Office Visit Neurology Leonardo Naranjo MD Polyneuropat hy (Primary Dx); Memory loss or impairment; Essential tremo r 07/23/2020 Travel 04/22/2020 Telemedicine Neurology Leonardo Naranjo MD Polyneuropat [...] impairment; Paresthesia; Bilateral carpa l tunnel syndrome after 07/24/2019 Surgical History Surgery Date Site/Laterality Comments CORONARY ARTERY BYPASS GRAFT 09/15/2010 - tri ple 10/12/2010 HUNTING GUIDE RENAL/VISC ART 1ST VES ??? S\\T\\I ROTATOR CUFF REPAIR 05/15/2015 - Left 06/14/2015 CARDIAC CATHETERIZATION 03/07/2017 N/A Procedur e: Aortagram abdomen w run of f; Surgeon: Júnior Huber MD; Location: [facility]; Service: Cardiov ascular; Laterality: N/A ; CARDIAC CATHETERIZATION CORONARY ANGIOPLASTY CARDIAC CATHETERIZATION 03/07/2017 N/A Procedur e: Cv left heart cath w lv gram c ors; Surgeon: Júnior Huber MD; Location: [facility]; Service: Cardiov ascular; Laterality: N/A ; OTHER SURGICAL HISTORY 'right le g bypass' 07/2013 STENT right leg x 4 CORONARY ANGIOPLASTY WITH x1 2002 STENT PLACEMENT REPAIR, ROTATOR CUFF, 07/13/2018 Shoulder/Right Procedure: RIGHT ARTHROSCOPIC SHOULDER ROTATOR CUFF REPAIR, SUBACROM IAL DECOMPRESSION; Surgeon: Karlos Sherwood M D; Location: [facility] OR; Service: Orthop edics; Laterality: Righ t; Medical devices from this surgery are in the Implants section . Medical History Medical History Date Comments Hypertension Hyperlipidemia Diabetes mellitus (HCC) Anesthesia NHAP;NFHAP Depression Coronary artery disease last episode of CP prior to CABG CHF (congestive heart failure) (HCC) 2011 PAD (peripheral artery disease) (HCC) GERD (gastroesophageal reflux disease) o ccasional Deep vein thrombosis (HCC) 2011 leg Type 2 diabetes mellitus (HCC) DDD (degenerative disc disease), cervical Carotid stenosis [...] file Not on file Not on file COVID-19 Exposure Response Date Recorded In the last month, have you been in contact with No / Unsure 07/23/2020 1:21 PM BAND SAW FILER someone who was confirmed or suspected to have Coronavirus / COVID-19? Last Filed Vital Signs Vital Sign Reading Time Taken Comments Blood Pressure 110/62 07/23/2020 1:44 PM BAND SAW FILER Pulse 71 07/23/2020 1:44 PM BAND SAW FILER Temperature 35.7 C (96.2 F) 07/23/2020 1:44 PM BAND SAW FILER Respiratory Rate - - Oxygen Saturation - - Inhaled Oxygen Concentration - - Weight 116 kg (255 lb) 07/23/2020 1:44 PM BAND SAW FILER Height 180.3 cm (5' 11") 07/23/2020 1:44 PM BAND SAW FILER Body Mass Index 35.57 07/23/2020 1:44 PM BAND SAW FILER Plan of Treatment Date Type Specialty Care Team Description 11/21/2020 Office [place] [address] [facility] [address] [place] [address] [phone] Health Maintenance Due Date Last Done Comments DIABETES: RETINAL EYE EXAM 11/15/1967 DIABETIC FOOT EXAM 11/15/1967 URINE MICROALBUMIN 11/15/1967 COLONOSCOPY SCREENING 11/15/2007 SHINGLES VACCINES (#1) 11/15/2007 INFLUENZA VACCINE 03/15/2020 05/10/2019, 05/29/2018 Implants Implanted Type Area Medicaid Eligibility Specialist Device Shelf Model / Identifier Expiration Serial / Date Lot Device Vasclr Clsr Baln Cath 10ml Lkng Syr 5fr Matthews My nxgrip - [id number] Cardiovascular N/A: ACCESS CLOSURE 02/11/2021 [id number] / Implanted: 06/14/2019 at [facility] (Quantity not on file) Implants N/A INC / [id number] Description:bioabsorbable /non metalic Suture [place] Iconix 2.3mm - [id number] Orthopedic Right: DIXIE 08/27/2019 [id number] / Implanted: Qty: 2 on 07/13/2018 by Karlos Sherwood MD at [facility] Surgical Shoulder ENDOSCOPY DIV / Implants [id number] Suture [place] Reelx 4.5mm Knotless - [id number] Orthopedic Right: DIXIE 04/26/2020 [id number] 600 [id number] / Implanted: Qty: 1 on 07/13/2018 by Kralos Sherwood MD at [facility] Surgical Shoulder ENDOSCOPY DIV / Implants [id number] Suture [place] Reelx 4.5mm Knotless - [id number] Orthopedic Right: DIXIE 04/26/2020 [id number] 600 [id number] / Implanted: Qty: 1 on 07/13/2018 by Karlos Sherwood MD at [facility] Surgical Shoulder ENDOSCOPY DIV / Implants [id number] Suture [place] Iconix 2.3mm - [id number] Orthopedic Right: DIXIE 08/26/2019 3910 500 [id number] / Implanted: Qty: 1 on 07/13/2018 by Karlos Sherwood MD at [facility] Surgical Shoulder ENDOSCOPY DIV / Implants [id number] Drill Bit Iconix 2.3mm Disp - [id number] Orthopedic Right: DIXIE 11/27/2019 3910 500 569 / Implanted: Qty: 1 on 07/13/2018 by Karlos Sherwood MD at [facility] Surgical Shoulder ENDOSCOPY DIV / Implants [id number] Suture [place] Reelx 4.5mm Knotless - [id number] Orthopedic Right: DIXIE 01/26/2020 3910 600 062 / Implanted: Qty: 1 on 07/13/2018 by Karlos Sherwood MD at [facility] Surgical Shoulder ENDOSCOPY DIV / Implants [id number] Suture [place] Reelx 4.5mm Knotless - [id number] Orthopedic Right: DIXIE 01/26/2020 3910 600 [id number] / Implanted: Qty: 1 on 07/13/2018 by Karlos Sherwood MD at [facility] Surgical Shoulder ENDOSCOPY DIV / Implants [id number] Stent Stent Procedures Procedure Name Priority Date/Time [...] are i n the results section. after 07/24/2019 Results MRI Lumbar Spine Wo Contrast (03/13/2020 [...] at L4-5 and L5-S1 as detailed above. [id number] Procedure Note Hm Interface, Radiology Results Incoming [...] at L4-5 and L5-S1 as detailed above. [id number] Performing Organization Address City/State/ZIP Code Phon e Number [facility] [address] [place] [address] MRI Thoracic Spine Wo Contrast (03/13/2020 12:55 PM CDT) Specimen Narrative Performed At EXAMINATION: MRI THORACIC SPINE WO CONTR AST [facility] CLINICAL HISTORY: R29.2 Abnormal reflex, R25.8 [...] and suba rticular zone stenosis as above. [id number] Procedure Note Interface, Radiology Results Incoming - 03/13/2020 1:25 [...] foraminal and subarticular zone stenosis as above. [id number] Performing Organization Address City/State/ZIP Code Phon e Number [facility] [address] [place] [address] MRI Cervical Spine Wo Contrast (03/13/2020 12:29 [...] C5-6, and C6-7. No abnormal cord signal. [id number] Procedure Note Hm Interface, Radiology Results - [...] C5-6, and C6-7. No abnormal cord signal. [id number] Performing Organization Address City/[facility] Phon e Number [facility] [address] [place] [address] PET Brain Metabolic Eval (03/13/2020 10:26 AM CDT) Specimen Narrative Performed At This result has an attachment that is no t available. PROCEDURE: PET [facility] INDICATION: R41.3 Other amnesia, memory loss COMPARISON: [...] evidence of a progressive neur odegenerative disorder. [id number] Procedure Note [facility], Radiology Results Incoming - 03/13/2020 11:33 AM [...] evidence of a pr ogressive neurodegenerative disorder. [id number] Performing Organization Address City/[facility] Code Phon e Number [facility] [address] [place] [address] POC glucose (03/13/2020 8:15 AM CDT) Pathologist Sig nature POC glucose 134 (H) 65 - 99 mg/dL DANNY LOWERY Comment: LOCATED [facility]IN [facility] Shellfish Dredge Operator Name: Bailey Pedersen Device ID: [id number] Chartable: No Action Needed Specimen Blood Performing Organization Address City/State/ZIP Code Phon e Number [facility] DEPARTMENT OF PATHOLOGY [address] [facility] [address] AND GENOMIC MEDICINE [facility] [address] [facility] [address] HOSPITAL after 07/24/2019 Advance Directives For more information, please contact: [phone] Type Date Recorded Patient Cutting Machine Offbearer Explanati on Advance Directives, Living 07/13/2018 7:31 AM Will and Medical Power of Plater Hot Dip
--- OUTSIDE RECORDS SUMMARY | 2020-07-24 09:09 | XMS REPORT | Clinical Summary ---
:1955 Author Organization [facility] Address [address] [place] [address] Care Team Providers Name Role Phone Elvi Mccracken DO Primary Care Provider [facility] Unavailable Allergies Active Allergy Reactions Severity Noted Date Comments Adhesive Rash Low 07/02/2011 Ciprofloxacin 05/14/2020 Latex 05/14/2020 Pregabalin 11/16/2019 Other reaction( s): Info Not Available, Unknown Other reaction( s): Unknown Medications Medication Sig Dispensed Refills Start End Status Date Date clopidogreL (PLAVIX) Take 75 mg by 0 Active 75 mg tablet mouth daily . 020 FOLBEE 2.5-25-1 mg Tab Take 1 tablet by 0 Active tablet mouth daily. 020 DEXILANT 60 mg capsule Take 1 capsule by 0 2 Active mouth daily. 020 TRULICITY 1.5 mg/0.5 1.5 mg by 0 Active mL PnIj Subconjunctival 020 route once a week . DULoxetine (CYMBALTA) Take 60 mg by 0 Active 30 MG capsule mouth nightly . 020 hydroCHLOROthiazide Take 25 mg by 0 02/18/2 Active (HYDRODIURIL) 25 MG mouth daily . 020 tablet losartan (COZAAR) 100 Take 100 mg by 0 2 Active MG tablet mouth daily . 020 BYSTOLIC 20 mg Tab Take 20 mg by 0 2 Active mouth daily . 020 rosuvastatin (CRESTOR) [...] Encounters Date Type Specialty Care Team Description 06/24/2020 Video - Telemedicine Cardiology Liz, S/P car otid endarterectomy (Primary Dx); Ad Stenosis of rig ht carotid artery; MD Donnell Coronary artery disease involving [place] coronary artery of [place] heart without angina pectoris; Essential hyper tension; Type 2 diabetes mellitus with diabetic peripheral angiopathy without gangrene, with long-term current use of insulin (HCC); Hypercholestero lemia; Peripheral mary kate rial disease (HCC); Carotid stenosi s, right; Status post fem oral-popliteal bypass surgery 05/29/2020 Anesthesia Event MarcoBryan MD Powell, Thomas Ryan, MD 05/29/2020 Surgery Liz, ENDARTERECTOMY, CAROTID Ad Jacobo MD 05/29/2020 - Hospital Encounter Cardiology Liz, Preoperat mima evaluation 05/30/2020 Ad to rule out elio jelena Jacobo MD contraindicatio n (Primary Dx) 05/28/2020 Hospital Encounter Pre-Admission Testing 05/28/2020 Office Visit Cardiology Liz Preoperative ev aluation Ad to rule out elio jelena Jacobo MD contraindication Vishnu Sarah RN 05/22/2020 Orders Only Cardiology Mina Preoperative ev aluation PK Serna to rule out elio gical contraindicatio n (Primary Dx) 05/21/2020 Office Visit Cardiology Lettamieu, Preoperative ev emiliano Duong to rule out elio gical MD Donnell contraindication Vishnu Sarah RN 05/21/2020 Travel 05/20/2020 Orders Only Cardiology Mina, Preoperative ev emiliano Serna RN to rule out elio gical contraindicatio n (Primary Dx) 05/15/2020 Video - Telemedicine Cardiology Liz, Carotid stenosis, right (Primary Dx); Ad Coronary artery disease involving [place] coronary artery of [place] heart without angina pectoris; MD Donnell Type 2 diabetes mellitus with diabetic peripheral angiopathy without gangrene, with long-term current use of insulin (HCC); Essential hyper tension; Hypercholestero lemia; Peripheral mary kate rial disease (HCC); Status post fem oral-popliteal bypass surgery 05/15/2020 Orders Only Cardiology Mina, Preoperative ev emiliano Serna RN to rule out elio gical contraindicatio n (Primary Dx) after 07/24/2019 Family History Medical History Relation Name Comments [...] 05/29/2020 5:42 AM CDT Plan of Treatment Health Maintenance Due Date Last Done Comments COLON CANCER SCREENING COLONOSCOPY 1955 DIABETIC EYE EXAM 11/15/1967 DIABETIC FOOT EXAM 11/15/1967 URINE MICROALBUMIN 11/15/1967 LIPID PANEL 1992 DEPRESSION SCREENING (12+) 08/15/2019 05/29/2020 INFLUENZA VACCINE (#1) 2020 05/10/2019 HEMOGLOBIN A1C 11/28/2020 05/30/2020 PNEUMOCOCCAL VACCINE 0-64 YRS Completed 05/09/2020 Implants Implanted Type Area Credit Checker Device Shelf Model / Identifier Expiration Serial / Lot Date Grft Hemshld Dbl Alejo 0.3x3.0in [id number] - [id number] IMPLA NTS Right: GETINGE 11/12/2024 [id number] / Implanted: Qty: 1 on 05/29/2020 by Ad Clifton MD at [facility] Arterial IND:MAQUET:CV [id number] / [id number] Description:RIGHT CAROTID ENDARTERCTOMY Procedures Procedure Name Priority Date/Time Associated Diagnosis Comme nts POCT-GLUCOSE METER Routine 05/30/2020 10:54 Resul ts for AM CDT this procedure are in the results section. XR CHEST 1 VIEW STAT 05/30/2020 9:20 Results for PORTABLE/BEDSIDE AM CDT this proced ure are in the results section. POCT-GLUCOSE METER Routine 05/30/2020 7:51 Resul ts for AM CDT this procedure are in the results section. CBC W/PLT COUNT & Routine 05/30/2020 7:06 Result s for AUTO DIFFERENTIAL AM CDT this proce dure are in the results section. CBC W/PLT COUNT & Routine 05/30/2020 7:06 Result s for AUTO DIFFERENTIAL AM CDT this proce dure are in the results section. HEMOGLOBIN A1C Routine 05/30/2020 5:43 Results f or AM CDT this procedure are in the results section. TSH/FREE T4 IF Routine 05/30/2020 5:43 Results f or INDICATED AM CDT this procedure are in the results section. MAGNESIUM Routine 05/30/2020 5:43 Results for AM CDT this procedure are in the results section. PHOSPHORUS Routine 05/30/2020 5:43 Results for AM CDT this procedure are in the results section. CALCIUM, IONIZED Routine 05/30/2020 5:43 Results for AM CDT this procedure are in the results section. BASIC METABOLIC Routine 05/30/2020 5:43 Results for PANEL (7) AM CDT this procedure are in the results section. POCT-GLUCOSE METER Routine 05/29/2020 10:04 Resul ts for PM CDT this procedure are in the results section. POCT-GLUCOSE METER Routine 05/29/2020 4:44 Resul ts for PM CDT this procedure are in the results section. POCT-GLUCOSE METER Routine 05/29/2020 12:29 Resul ts for PM CDT this procedure are in the results section. BASIC METABOLIC Routine 05/29/2020 12:28 Results for PANEL (7) PM CDT this procedure are in the results section. CBC (HEMOGRAM ONLY) Routine 05/29/2020 12:28 Resu lts for PM CDT this procedure are in the results section. HC SOMATOSENSORY Routine 05/29/2020 11:50 Results for TEST, 4 LIMBS AM CDT this procedure are in the results section. TISSUE EXAM AP Routine 05/29/2020 10:31 Results for AM CDT this procedure are in the results section. HGB/HCT (H&H) - STAT STAT 05/29/2020 10:11 Res ults for LAB AM CDT this procedure are in the results section. GLUCOSE-STAT LAB STAT 05/29/2020 10:11 Results for AM CDT this procedure are in the results section. POTASSIUM-STAT LAB STAT 05/29/2020 10:11 Resul ts for AM CDT this procedure are in the results section. SODIUM NA-STAT LAB STAT 05/29/2020 10:11 Resul ts for AM CDT this procedure are in the results section. BLOOD GAS, ARTERIAL STAT 05/29/2020 10:11 Resu lts for AM CDT this procedure are in the results section. CALCIUM, IONIZED STAT 05/29/2020 10:11 Results for AM CDT this procedure are in the results section. BLOOD GAS, ARTERIAL STAT 05/29/2020 10:11 Resu lts for AM CDT this procedure are in the results section. ENDARTERECTOMY,CAROT 05/29/2020 8:23 Stenosis of fontaine tid ID AM CDT artery, unspecified laterality ABORH, MANUAL STAT 05/29/2020 6:28 Results fo r AM CDT this procedure are in the results section. POCT-GLUCOSE METER Routine 05/29/2020 5:50 Resul ts for AM CDT this procedure are in the results section. PLATELET AP Routine 05/28/2020 10:34 Preoperative evaluation Results for AGGREGATION: AM CDT to rule out surgical this pr ocedure FUNCTION SCREEN contraindication are in t he results section. SARS-COV2/RT-PCR Routine 05/28/2020 10:15 Preoperative evaluat ion Results for ([facility] & REF LABS) AM CDT to rule out surgical th is procedure contraindication are in the results section. TRANSFUSION SERVICE 05/22/2020 6:05 Preoperative eval uation REPORT - SCAN PM CDT to rule out surgical contraindication CBC W/PLT COUNT & Routine 05/21/2020 11:01 Preoperative evalua tion Results for AUTO DIFFERENTIAL AM CDT to rule out surgical th is procedure contraindication are in the results section. TYPE AND SCREEN, Routine 05/21/2020 11:01 Preoperative evaluat ion Results for AUTOMATED AM CDT to rule out surgical this pr ocedure contraindication are in the results section. PLATELET Routine 05/21/2020 11:01 Preoperative evaluation Results for AGGREGATION: AM CDT to rule out surgical this pr ocedure FUNCTION SCREEN contraindication are in t he results section. PROTHROMBIN TIME/INR Routine 05/21/2020 11:01 Preoperative clive luation Results for AM CDT to rule out surgical this pr ocedure contraindication are in the results section. CBC W/PLT COUNT & Routine 05/21/2020 11:01 Preoperative evalua tion Results for AUTO DIFFERENTIAL AM CDT to rule out surgical th is procedure contraindication are in the results section. BASIC METABOLIC Routine 05/21/2020 11:01 Preoperative evaluati on Results for PANEL (7) AM CDT to rule out surgical this pr ocedure contraindication are in the results section. SARS-COV2/RT-PCR Routine 05/21/2020 10:38 Preoperative evaluat ion Results for ([facility] & REF LABS) AM CDT to rule out surgical th is procedure contraindication are in the results section. ECG 12-LEAD Routine 05/21/2020 10:32 Preoperative evaluation Results for AM CDT to rule out surgical this pr ocedure contraindication are in the results section. after 07/24/2019 Results POC-Glucose meter (05/30/2020 10:54 AM CDT)Only the most recent of6 results within the time period is included. POC-Glucose Meter 267 (H) 70 - 110 mg/dL [facility] Comment: [facility] : TESTED AT [facility] [address], [address] CENTER : Film Cleaner/Air Conditioning Installer ID = [id number] for JORGE ACE Specimen Blood Performing Organization Address City/[facility]/Zipcode Phone Number [facility] [address] [place] [address] [phone] CENTER XR chest 1 view portable / bedside (05/30/2020 9:20 AM CDT) Specimen Narrative Performed At FINAL REPORT [facility] CLINICAL HISTORY: dyspnea TECHNIQUE: 1 view of the chest. COMPARISON: None IMPRESSION: There is left lower lung atelectasis. Th e right lung appears well-aerated. There is no significant pl eural fluid. The cardiomediastinal silhouette is magnifie d by technique with sternotomy wires. Signed: Alexis Rosenbaum MD Report Verified Date/Time: 05/30/2020 10:20:48 Reading Location: [facility] Reading Room Procedure Note Interface, External Ris In - 05/30/2020 10:22 AM CDT FINAL REPORT CLINICAL HISTORY: dyspnea TECHNIQUE: 1 view of the chest. COMPARISON: None IMPRESSION: There is left lower lung atelectasis. Th e right lung appears well-aerated. There is no significant pl eural fluid. The cardiomediastinal silhouette is magnifie d by technique with sternotomy wires. Signed: Alexis Rosenbaum MD Report Verified Date/Time: 05/30/2020 1 0:20:48 Reading Location: [facility] Reading Room Performing Organization Address City/State/Zipcode Phone Number [facility] CBC with platelet count + automated diff (05/30/2020 7:06 AM CDT)Only the most recent of2 resultswithin the time period is included. Pathologist Sig nature WBC 9.6 3.5 - 10.5 [facility] RBC 4.07 (L) 4.63 - 6.08 [facility] M/L [facility] Hemoglobin 12.4 (L) 13.7 - 17.5 [facility] GM/DL [facility] Hematocrit 37.7 (L) 40.1 - 51.0 % [facility] MCV 92.6 (H) 79.0 - 92.2 fL [facility] MCH 30.5 25.7 - 32.2 pg [facility] MCHC 32.9 32.3 - 36.5 [facility] RDW 13.2 11.6 - 14.4 % [facility] Platelets 174 150 - 450 K/CU [facility] MPV 10.9 9.4 - 12.4 fL [facility] nRBC 0 0 - 0 /100 WBC [facility] % Neutros 75 % [facility] % Lymphs 15 % [facility] % Monos 9 % [facility] % Eos 2 % [facility] % Baso 1 % [facility] # Neutros 7.15 (H) 1.78 - 5.38 [facility] # Lymphs 1.39 1.32 - 3.57 [facility] # Monos 0.81 0.30 - 0.82 [facility] # Eos 0.14 0.04 - 0.54 [facility] # Baso 0.07 0.01 - 0.08 [facility] Immature 0 0 - 1 % [facility] Specimen Blood Performing Organization Address City/State/Zipcode Phone Number [address] [address] CENTER TSH/Free T4 If Indicated (05/30/2020 5:43 AM CDT) Pathologist Sig nature TSH 0.888 0.350 - 4.940 uIU/mL [facility] Specimen Blood Narrative Performed At Film Cleaner ID - ED[facility]I [facility] Performing Organization Address City/[facility]/Zipcode Phone Number [address] [address] CENTER Calcium, Ionized (05/30/2020 5:43 AM CDT)Only the most recent of2 resultswithin the time period is included. Pathologist Sig nature Calcium, Ion 1.14 1.12 - 1.27 mmol/L [facility] pH, Blood 7.32 [facility] Specimen Blood Performing Organization Address City/[facility] Phone Number [address] [address] CENTER Phosphorus (05/30/2020 5:43 AM CDT) Pathologist Sig nature Phosphorus 3.2 2.3 - 4.7 mg/dL [facility] Specimen Blood Narrative Performed At Film Cleaner ID - PISHLOMO L [facility] Performing Organization Address City/State/Zipcode Phone Number [address] [address] CENTER Magnesium (05/30/2020 5:43 AM CDT) Pathologist Sig nature Magnesium 1.4 (L) 1.6 - 2.6 mg/dL [facility] Specimen Blood Narrative Performed At Film Cleaner ID - PISHLOMO L [facility] Performing Organization Address City/State/Zipcode Phone Number [facility] [address] [place] [address] CENTER Hemoglobin A1c (05/30/2020 5:43 AM CDT) Pathologist Sig nature Hemoglobin A1C 7.4 (H) 4.3 - 6.1 % [facility] Specimen Blood Narrative Performed At Film Cleaner ID - ADMIN [facility] Performing Organization Address City/State/Zipcode Phone Number [facility] [address] [place], [place] [address] Basic Metabolic Panel (05/30/2020 5:43 AM CDT)Only the most recent of3 results within the time period is included. Sodium 137 136 - 145 meq/L [facility] Potassium 4.1 3.5 - 5.1 meq/L [facility] Chloride 99 98 - 107 meq/L [facility] CO2 29 22 - 29 meq/L [facility] BUN 14 7 - 21 mg/dL [facility] Creatinine 1.07 0.57 - 1.25 [facility] mg/dL [facility] Glucose 179 (H) 70 - 105 mg/dL [facility] Calcium 9.2 8.4 - 10.2 [facility] mg/dL [facility] EGFR 70Comment: ESTIMATED mL/min/1.73 sq [facility] GFR IS NOT m [facility] ACCURATE CACHE JUNCTION CREATININE CLEARANCE IN PREDICTING GLOMERULAR FILTRATION RATE. ESTIMATED GFR IS NOT APPLICABLE FOR DIALYSIS PATIENTS. Specimen Blood Narrative Performed At Film Cleaner ID - PIAYA L [facility] Performing Organization Address City/[facility]/Zipcode Phone Number [facility] [address] [place] [address] CENTER CBC (Hemogram only) (05/29/2020 12:28 PM CDT) Pathologist Sig nature WBC 8.1 3.5 - 10.5 K/L [facility] RBC 3.96 (L) 4.63 - 6.08 M/L [facility] Hemoglobin 11.9 (L) 13.7 - 17.5 GM/DL [facility] Hematocrit 36.5 (L) 40.1 - 51.0 % [facility] MCV 92.2 79.0 - 92.2 fL [facility] MCH 30.1 25.7 - 32.2 pg [facility] MCHC 32.6 32.3 - 36.5 GM/DL [facility] RDW 13.2 11.6 - 14.4 % [facility] Platelets 173 150 - 450 K/CU MM [facility] MPV 10.6 9.4 - 12.4 fL [facility] nRBC 0 0 - 0 /100 WBC [facility] Specimen Blood Performing Organization Address City/State/Zipcode Phone Number [facility] [address] [place] [address] CENTER SHORT LATENCY SEP ALL LIMBS (05/29/2020 11:50 AM CDT) Specimen Narrative Performed At INTRAOPERATIVE MONITORING REPORT GE RIS Patient Name: Alexander Walker [facility] Surgery Date: 05/29/20 Monitoring began at 0835 and ended at 1150 Surgeon: Guillermo Hill Examining Neurologist: Mercedes WILLS Monitoring Technologist: JASON Alarcon Procedure: Right Carotid Endarterectom y Stimulation Parameters: Ulnar nerves i ndividually stimulated at the wrist Rate 4.7Hz, Intensity 30-35mA, Dur ation 0.3ms Posterior Tibial nerves individual ly stimulated at the ankle Rate 4.7Hz, Intensity 40mA, Durati on 0.3ms Filters 30-500Hz, Notch Off Motor strip stimulated anterior to C3 and C4 with alternating polarities Intensity 150-700V, Train Rate 4-5 , YAMILA 2-3ms Filters 30-2KHz, Notch Off Recording Parameters: C3 and C4, refer enced to FPz Free-running EEG recorded with bipolar d erivation, using modified International 10/20 placements: FP1-C3 , C3-O1, FP1-T3, T3-O1, FP2-C4, C4-O2, FP2-T4, and T4-O2 Description: Intraoperative neurophysi ological monitoring was performed using a combination of upper a nd lower extremity somatosensory evoked potentials and 8 ch amado free-running EEG. A real-time connection with the examining neurologist was established and maintained throughout the operative procedure by the monitoring technologist. Upper and lower extremi ty somatosensory evoked potentials were recorded at the cortical levels following median nerve stimulation at the wrist and PTN s timulation at ankles. Post-induction, pre-incision baseline re cording responses to median nerve stimulation were clear and reprodu cible with parameter values within normal limits bilaterally. At closing, free-running EEG remained symmetrical and at baseline gulshan quencies with no focal changes noted to occur throughout the op erative procedure. MD Mercedes Procedure Note Interface, External Ris In - 06/06/2020 3:25 PM CDT INTRAOPERATIVE MONITORING REPORT Patient Name: Alexander Walker [facility] Surgery Date: 05/29/20 Monitoring began at 0835 and ended at 1 150 Surgeon: Guillermo Hill Examining Neurologist: Mercedes WILLS Monitoring Technologist: JASON Suarez Procedure: Right Carotid Endarterectomy Stimulation Parameters: Ulnar nerves in dividually stimulated at the wrist Rate 4.7Hz, Intensity 30-35mA, Durat ion 0.3ms Posterior Tibial nerves individually stimulated at the ankle Rate 4.7Hz, Intensity 40mA, Duration 0.3ms Filters 30-500Hz, Notch Off Motor strip stimulated anterior to C 3 and C4 with alternating polarities Intensity 150-700V, Train Rate 4-5, YAMILA 2-3ms Filters 30-2KHz, Notch Off Recording Parameters: C3 and C4, refere nced to FPz Free-running EEG recorded with bipolar d erivation, using modified International 10/20 placements: FP1-C3, C3-O1, FP1-T3, T3-O1, FP2-C4, C4-O2, FP2-T4, and T4-O2 Description: Intraoperative neurophysio logical monitoring was performed using a combination of upper a nd lower extremity somatosensory evoked potentials and 8 ch amado free-running EEG. A real-time connection with the examining neurologist was established and maintained throughout the operative procedure by the monitoring technologist. Upper and lower extremit y somatosensory evoked potentials were recorded at the cortical levels following median nerve stimulation at the wrist and PTN s timulation at ankles. Post-induction, pre-incision baseline re cording responses to median nerve stimulation were clear and reprodu cible with parameter values within normal limits bilaterally. At c losing, free-running EEG remained symmetrical and at baseline gulshan quencies with no focal changes noted to occur throughout the op erative procedure. MD Mercedes Performing Organization Address City/State/Zipcode Phone Number GE RIS Tissue Exam (05/29/2020 10:31 AM CDT) Case Report Surgical Pathology Report Case: [id number] [facility] Authorizing Provider: Ad Peacock, Collected: 05/29/2020 10:31 AM [facility] Ordering Location: HEALTH SYSTEM Received: 05/29/2020 12:48 PM PERIOPERATIVE SERVICES Pathologist: Benito Winston MD Specimen: Plaque, RIGHT CAROTID ARTERY PLAQUE DIAGNOSIS ARTERY, RIGHT CAROTID, ENDARTERECTOMY: I [facility] Electronically CALCIFIC ATHEROSCLEROTIC PLAQUE [facility] signed by Benito Winston Signing Pathologist Direct Phone Line: [phone] [facility] MD Bert on 06/09/2020 at 1:15 PM CPT Code(s) 64283; [address] [facility] CLINICAL HISTORY Preop diagnosis: [facility] stenosis of carotid [facility] artery, unspecified [facility]ENTER laterality SPECIMEN SOURCE Plaque [facility] GROSS DESCRIPTION A. Received fresh [facility] labeled with the [facility] patient's name, [facility]ENTER accession number and "plaque, right carotid artery plaque" are two mcpherson-white to yellow and calcified cylindrical fragments consistent with plaque. The circumference is 0.5 cm, and the fragments range from 0.8 to 3.4 cm. There is focal hyperemia on the fragments. Cross section reveals a 0.3 cm thick layer of yellow-brown calcification. The specimen is submitted in its entirety in A1 for decal. JG/pl MICROSCOPIC Performed [facility] Specimen Tissue - Plaque (morphologic abnormality ) Performing Organization Address [facility] Phone Number [address] [address] CENTER Potassium-Stat Lab (05/29/2020 10:11 AM CDT) Pathologist Sig nature Potassium 4.0 3.6 - 5.5 meq/L [facility] Specimen Blood, Arterial Performing Organization Address [facility] Hospital[facility] Phone Number [address] [address] CENTER Sodium Na-Stat Lab (05/29/2020 10:11 AM CDT) Pathologist Sig nature Sodium 137 136 - 145 meq/L [facility] Specimen Blood, Arterial Performing Organization Address [facility] Phone Number [address] [address] CENTER Glucose-Stat Lab (05/29/2020 10:11 AM CDT) Pathologist Sig nature Glucose 153 (H) 70 - 110 mg/dL [facility] Specimen Blood, Arterial Performing Organization Address [facility] Phone Number [address] [address] CENTER HGB/HCT (H&H)-Stat Lab (05/29/2020 10:11 AM CDT) Pathologist Sig nature Hemoglobin 12.6 (L) 13.0 - 16.8 GM/DL [facility] Hematocrit 37.0 (L) 40.0 - 50.0 % [facility] Specimen Blood, Arterial Performing Organization Address City/State/Zipcode Phone Number [address] [address] CENTER Blood gas, arterial (05/29/2020 10:11 AM CDT) Pathologist Sig nature pH, Arterial 7.44 7.35 - 7.45 [facility] pCO2, Arterial 40 35 - 45 mm Hg [facility] pO2, Arterial 334 (H) 80 - 90 mm Hg [facility] O2 Sat, Arterial 99.8 (H) 96.0 - 97.0 % [facility] HCO3, Arterial 26 21 - 29 mmol/L [facility] Base Excess, Arterial 1.8 -2.0 - 3.0 [facility] mmol/L [facility] Patient Temperature 36.5 [facility] FIO2 100.0 [facility] Specimen Blood, Arterial Performing Organization Address City/[facility] Phone Number [address] [id number] CENTER [place], manual (05/29/2020 6:28 AM CDT) Pathologist Sig nature ABO Grouping A [facility] Rh Factor POS [facility] Specimen Blood Performing Organization Address City/State/Zipcode Phone Number [address] [address] Platelet Aggregation: Function Screen (05/28/2020 10:34 AM CDT)Only the most recent of2 resultswithin the time period is included. Pathologist: Michael Teran MD [facility] ([employer] [facility] signature) MEDICAL CENTER Platelets 210 150 - 450 [facility] K/CU MM [facility] ADP 38 (L) 62 - 100 % [facility] Platelet Rich Plasma 278 200 - 300 [facility] k/cu mm [facility] Plt. Function Screen Decreased [facility] aggregation with [facility] ADP which MEDICAL CENTER indicates platelet dysfunction that may be due to medication effect, uremia, or other platelet function disorders. Clinical correlation is required. Specimen Blood Narrative Performed At Platelet Function Screen results may be [facility] falsely low with platelet counts <75,000/cu mm. Film Cleaner ID - [id number] Performing Organization Address City/State/Zipcode Phone Number [facility] [address] [place] [address] CENTER SARS-CoV2/RT-PCR ([facility]) (05/28/2020 10:15 AM CDT)Only the most recent of2 resultswithin the time period is included. SARS-COV2/RT-PCR Negative Not Detected, [facility] Negative, See [facility] external report CENTER for linked test SARS-COV-2 [facility] PERFORMING LAB [facility] Specimen Other - Nasopharyngeal wall structure (b saumya structure) Narrative Performed At Negative result for this test determines that [facility] SARS-CoV-2 RNA was not present in the [...] the Act. Fact Sheet for Healthcare Providers: https://www.memory lane [employer]ications/sites/default/files/pro duct/documents/Fact_Sheet_HC_Providers_Lyra_SA RS-CoV-2.pdf Fact Sheet for Healthcare Patients: https://www.memory [employer]/sites/default/files/pro duct/documents/Fact_Sheet_Patients_Lyra_SARS-C oV-2.pdf Performing Laboratory: [address] [place] [address] Performing Organization Address City/[facility]/Zipcode Phone Number [address] [address] CENTER TRANSFUSION SERVICE REPORT - SCAN (05/22/2020 6:05 PM CDT) Narrative Performed At This result has an attachment that is no t available. Type and screen, automated (05/21/2020 11:01 AM CDT) Pathologist Sig nature ABO/RH AUTOMATED A POSITIVE [facility] (BEAKER) [facility] Ab Scrn NEGATIVE [facility] Specimen Blood Performing Organization Address City/[facility]/Zipcode Phone Number [address] [address] Prothrombin time/INR (05/21/2020 11:01 AM CDT) Pathologist Sig nature Protime 13.4 11.9 - 14.2 seconds [facility] INR 1.05 <=5.90 [facility] Specimen Blood Narrative Performed At Effective 01/10/2019: PT Reference Range [facility] Change New: 11.9-14.2 Previous: 11.7-14.7 RECOMMENDED COUMADIN/WARFARIN INR THERAPY RANGES STANDARD DOSE: 2.0-3.0 Includes: PROPHYLAXIS for venous thrombosis, systemic embolization; TREATMENT for venous thrombosis and/or pulmonary embolus. HIGH RISK: Target INR is 2.5-3.5 for patients wiht mechanical heart valves. Performing Organization Address City/State/Zipcode Phone Number [facility] [address], [place] [id number] CENTER Electrocardiogram, 12-lead (05/21/2020 10:32 AM CDT) Specimen Narrative Performed At Ventricular Rate 65 BPM GE MUSE Atrial Rate 65 BPM P-R Interval 162 ms QRS Duration 166 ms Q-T Interval 454 ms QTC Calculation(Bazett) 472 ms P [place] 68 degrees R [place] -78 degrees T [place] 59 degrees Normal sinus rhythm Left axis deviation Right bundle branch block Abnormal ECG No previous ECGs available Confirmed by Brandin Reed ([id number]) on 05/21/2020 2:09:01 PM Procedure Note Interface, External Ris In - 05/21/2020 2:09 PM CDT Ventricular Rate 65 BPM Atrial Rate 65 BPM P-R Interval 162 ms QRS Duration 166 ms Q-T Interval 454 ms QTC Calculation(Bazett) 472 ms P [place] 68 degrees R [place] -78 degrees T [place] 59 degrees Normal sinus rhythm Left axis deviation Right bundle branch block Abnormal ECG No previous ECGs available Confirmed by Brandin Reed ([id number]) on 05/21 2:09:01 PM Performing Organization Address City/State/Zipcode Phone Number GE MUSE after 07/24/2019 Insurance Payer Benefit Plan Subscriber ID Effective Dates Phone Address Type / Group BLUE BC[employer] HMO [id number] 2017-Sho [phone] [address]MO/POS CROSS/BLUE BLUE/[address]ENT[address] t [id number] [place] [address] Advance Directives For more information, please contact: [phone] Code Status Date Activated Date Inactivated Comments Full Code 05/29/2020 5:42 AM 05/30/2020 6:35 PM This code status was determined by: Patient
--- OUTSIDE RECORDS SUMMARY | 2020-07-24 09:12 | XMS REPORT ---
:1955 Author Organization [facility] Address [address] [place] [address] Care Team Providers Name Role Phone Mccracken Unavailable [phone] PROBLEMS Type Condition ICD9-CM [id number] Onset Condition SNOMED Code Notes Code Code Dates Status Problem Hyperlipidemia E78.5 Active 71402194 Problem Diabetes E11.9 Active 212666563 Problem Depression with F41.8 Active 051935920 anxiety Problem Stented coronary Z95.5 Active 194620502 artery Problem Memory changes R41.3 Active 100847296 Problem Type 2 diabetes E11.51 Active 945315799 mellitus with diabetic peripheral angiopathy without gangrene Problem Unspecified I70.209 Active 469768986986775 atherosclerosis of [place] arteries of extremities, unspecified extremity Problem Peripheral I73.9 Active 406099488 vascular disease Problem Allergic arthritis M13.89 Active 45200848 Problem Pain in left hip M25.552 Active 44102141 Problem Pain in right hip M25.551 Active 62006333 Problem Tremor R25.1 Active 92515147 Problem Occlusion and I65.29 Active 243284657 stenosis of unspecified carotid artery Problem 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 483244295 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 Problem HTN (hypertension) I10 Active 98396546 Problem Dark brown-colored R82.998 Active 5622545663897 06 urine Problem Intermittent I73.9 Active 70210311 claudication Problem CAD (coronary I25.10 Active 88605256 artery disease) Problem Obesity E66.9 Active 763719002 Problem Multiple joint M25.50 Active 54735145 pain Problem Lower extremity R60.0 Active 316420846 edema Problem PUD (peptic ulcer K27.9 Active 99393913 disease) Problem Bilateral carotid I65.23 Active 617652125 artery stenosis ALLERGIES Allergen (clinical drug Drug/Non Drug Allergy Reaction Allergy Type Onset Date Status ingredient) documented on EMR pregabalin Lyrica([facility] Unknown Drug Allergy Active Code:[address]-84) ciprofloxacin Cipro([facility] Unknown Drug Allergy Active Code:[address]-50) ENCOUNTERS from 1955 to 2020-05-23 Encounter Location Date Provider Diagnosis [facility] [address] [facility] [address] 08 May, 2020 Na Mccracken Dark urine R82.998 [place] [address] IMMUNIZATIONS Vaccine Route Administration Date Status Pneumovax [...] 0:00 AM, [address], [place], [address], Insurance Providers Payer Name Payer Payer Insured Name Patient Coverage Covera End Address Phone Relationship to Start Date Mike e Insured [employer] [phone] Alexander Walker [id number] and Luke [id number] R [id number] [facility] [id number] [phone]
--- OUTSIDE RECORDS SUMMARY | 2020-07-24 09:12 | XMS REPORT ---
:1955 Author Organization [facility] Address [address] [place] [address] Care Team Providers Name Role Phone Mccracken Unavailable [phone] PROBLEMS Type Condition ICD9-CM [id number] Onset Condition SNOMED Code Notes Code Code Dates Status Problem Hyperlipidemia E78.5 Active 22875257 Problem Diabetes E11.9 Active 495685138 Problem Depression with F41.8 Active 569064367 anxiety Problem Stented coronary Z95.5 Active 438900760 artery Problem Memory changes R41.3 Active 452646726 Problem Type 2 diabetes E11.51 Active 920663179 mellitus with diabetic peripheral angiopathy without gangrene Problem Unspecified I70.209 Active 190627177320481 atherosclerosis of [place] arteries of extremities, unspecified extremity Problem Peripheral I73.9 Active 486845766 vascular disease Problem Allergic arthritis M13.89 Active 93422896 Problem Pain in left hip M25.552 Active 69388134 Problem Pain in right hip M25.551 Active 27324404 Problem Tremor R25.1 Active 54058114 Problem Occlusion and I65.29 Active 779309051 stenosis of unspecified carotid artery Problem 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 769421486 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 Problem HTN (hypertension) I10 Active 85131203 Problem Dark brown-colored R82.998 Active 0820936711018 06 urine Problem Intermittent I73.9 Active 30728706 claudication Problem CAD (coronary I25.10 Active 25860168 artery disease) Problem Obesity E66.9 Active 710544709 Problem Multiple joint M25.50 Active 04993851 pain Problem Lower extremity R60.0 Active 219503503 edema Problem PUD (peptic ulcer K27.9 Active 21168966 disease) Problem Bilateral carotid I65.23 Active 616545159 artery stenosis ALLERGIES Allergen (clinical drug Drug/Non Drug Allergy Reaction Allergy Type Onset Date Status ingredient) documented on EMR pregabalin Lyrica([facility] Unknown Drug Allergy Active Code:[address]-66) ciprofloxacin Cipro([facility] Unknown Drug Allergy Active Code:[address]-52) ENCOUNTERS from 1955 to 2020-05-23 Encounter Location Date Provider Diagnosis [facility] [address] 08 May, 2020 Na Mccracken Dark urine R82.998 [place], [place] [address] infection, site not specified N39.0 IMMUNIZATIONS Vaccine [...] Name Order Date URINALYSIS AUTO W/O SCOPE (45342) 2020-05-23 Next Appt Details prn if no improvement Reason: Provider Name:Sophia Mccracken, 2020-08-12 08:0 0:00 AM, [address], [place], [address], Insurance Providers Payer Name Payer Payer Insured Name Patient Coverage Covera End Address Phone Relationship to Start Date Mike e Insured [employer] [phone] Alexander Walker [id number] 8 and Blue [id number] R [id number] [facility] [phone]
--- OUTSIDE RECORDS SUMMARY | 2020-07-24 09:12 | XMS REPORT ---
:1955 Author Organization [facility] Address [address] [place] [address] Care Team Providers Name Role Phone Mccracken Unavailable [phone] PROBLEMS Type Condition ICD9-CM [id number] Onset Condition SNOMED Code Notes Code Code Dates Status Problem Hyperlipidemia E78.5 Active 56620423 Problem Diabetes E11.9 Active 996690790 Problem Depression with F41.8 Active 150966415 anxiety Problem Stented coronary Z95.5 Active 665838872 artery Problem Memory changes R41.3 Active 789943152 Problem Type 2 diabetes E11.51 Active 115509846 mellitus with diabetic peripheral angiopathy without gangrene Problem Unspecified I70.209 Active 915910981164018 atherosclerosis of [place] arteries of extremities, unspecified extremity Problem Peripheral I73.9 Active 838752609 vascular disease Problem Allergic arthritis M13.89 Active 46816806 Problem Pain in left hip M25.552 Active 58907372 Problem Pain in right hip M25.551 Active 26283984 Problem Tremor R25.1 Active 59552105 Problem Occlusion and I65.29 Active 307185010 stenosis of unspecified carotid artery Problem 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 998678971 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 Problem HTN (hypertension) I10 Active 86594044 Problem Dark brown-colored R82.998 Active 0938983980092 06 urine Problem Intermittent I73.9 Active 81966933 claudication Problem CAD (coronary I25.10 Active 31150378 artery disease) Problem Obesity E66.9 Active 884976493 Problem Multiple joint M25.50 Active 82936334 pain Problem Lower extremity R60.0 Active 824254107 edema Problem PUD (peptic ulcer K27.9 Active 37880499 disease) Problem Bilateral carotid I65.23 Active 467444393 artery stenosis ALLERGIES Allergen (clinical drug Drug/Non Drug Allergy Reaction Allergy Type Onset Date Status ingredient) documented on EMR pregabalin Lyrica([facility] Unknown Drug Allergy Active Code:[address]-58) ciprofloxacin Cipro([facility] Unknown Drug Allergy Active Code:[address]-11) ENCOUNTERS from 1955 to 2020-06-15 Encounter Location Date Provider Diagnosis [facility] [address] May, 2020 Na Mccracken Lashaun teremia R78.81 ; Family [facility] [address], [place] [address] hematuria N30. 01 ; Type 2 diabetes luis miguel itus with diabetic periph eral angiopathy with out gangrene E11.51 ; Occlusion and s tenosis of unspecified carotid artery I65.29 ; S/P carotid endarte rectomy Z98.890 ; Hyper lipidemia E78.5 ; History of seizure Z87.898 ; Bilateral carot id artery stenosis I65.23 ; CAD (coronary arter y disease) I25.10 ; Peripheral vasc ular disease I73.9 a nd Stented coronar y artery Z95.5 IMMUNIZATIONS Vaccine Route Administration Date Status Pneumovax [...] No Information VITAL SIGNS Height 71.00 in May, Weight 252.8 lbs May, Temperature 97.7 degrees Fahrenheit May, BMI 35.25 kg/m2 May, Oximetry 96 % May, Respiratory Rate 16 /min May, Blood pressure systolic 142 mm Hg May, Blood pressure diastolic 63 mm Hg May, MEDICATIONS Medication SIG (Take, Route, Start Date End Date Status Frequency, Duration) Zyrtec Allergy 10 MG 1 tablet Orally Once a Active day Bystolic 20 MG 1 tablet Orally Once a Act mima day for Hydrochlorothiazide 25 MG 1 tablet in the morning Not-Taking Orally Once a day for 90 days Hydrochlorothiazide 25 MG TAKE 1 TABLET BY MOUTH Not-Taking EVERY DAY IN THE MORNING for 90 Rosuvastatin Calcium 10MG 1 tablet Orally Once a Active day for 90 days Plavix 75 MG TAKE 1 TABLET BY MOUTH Activ e ONCE DAILY for 90 Trulicity 1.5 MG/0.5ML 1.5 mg Subcutaneous once Active a week for 90 days Bystolic 20 MG 1 tablet Orally Once a Act mima day in PM for 90 day Lantus SoloStar 100 UNIT/ML 35 units daily as Active directed Subcutaneous for 90 days Cilostazol 100 MG 1 tablet 30 minutes Act mima before or 2 hours after breakfast and dinner Orally once a day Plavix 75 MG 1 tablet Orally Once a Activ e day for 90 days Cozaar 100 MG 1 tablet Orally Once a Acti ve day in AM for 90 day Losartan Potassium 100 MG TAKE 1 TABLET BY MOUTH Active ONCE A DAY for 90 Aspir-81 81 MG 1 tablet Orally Once a Act mima day Glyburide-Metformin 5-500 MG 1 tablet with a meal Active Orally twice a day for 90 day(s) Humalog KwikPen 100 UNIT/ML 12 units tid before Active meals Subcutaneous for 90 days Crestor 10 MG TAKE 1 TABLET BY MOUTH Acti ve ONCE A DAY P.O Q day for 90 days Dexilant 60 MG 1 capsule Orally Once a Ac tive day for 30 day(s) PROCEDURES No Information RESULTS No Results REASON FOR VISIT Hospital f/u-[facility], rigors, shaking, positive blood culture s, uti, s/p carotid endarterectomy MEDICAL (GENERAL) HISTORY Type Description Date Medical [...] Information ASSESSMENTS Encounter Date Diagnosis Notes May, Acute cystitis with hematuria (ICD-10 - N30.01) May, Bacteremia (ICD-10 - R78.81) May, Occlusion and stenosis of unspecified ca rotid artery (ICD-10 - I65.29) May, Type 2 diabetes mellitus with diabetic p eripheral angiopathy without gangrene (ICD-10 - E11.51) May, CAD (coronary artery disease) (ICD-10 - I25.10) May, Bilateral carotid artery stenosis (ICD-1 0 - I65.23) May, Stented coronary artery (ICD-10 - Z95.5) May, Peripheral vascular disease (ICD-10 - I7 3.9) May, Hyperlipidemia (ICD-10 - E78.5) May, S/P carotid endarterectomy (ICD-10 - Z98 .890) May, History of seizure (ICD-10 - Z87.898) PLAN OF TREATMENT Medication Medication Name Sig Start Date Stop Date Lantus SoloStar 100 UNIT/ML 35 units daily as directed Subcutaneous for 90 days Humalog KwikPen 100 UNIT/ML 12 units tid before meals Subcutaneous for 90 days Aspir-81 81 MG 1 tablet Orally Once a day Trulicity 1.5 MG/0.5ML 1.5 mg Subcutaneous once a week for 90 days Cilostazol 100 MG 1 tablet 30 minutes before or 2 hours after breakfast and dinner Orally once a day Plavix 75 MG 1 tablet Orally Once a day for 90 days Glyburide-Metformin 5-500 MG 1 tablet with a meal Orally twice a day for 90 day(s) Treatment Notes Assessment Notes Clinical Notes Bacteremia -- complete 7 days of cefdinir 300mg po bidx 7 day--blood cultures positive gram negative rods citrobacter koseri x2-- will recheck blood culture to make sure resolved after completion of cefdinir.-- infection may have been cause of seizures/ acute rigors. Acute cystitis with hematuria -- complete antibiotics as directed. Will send urine for urine culture and sensitivity to make sure antibiotic placed on is sensitive to the organism causing UTIl.-- increase water intake-- always wipe front to back-- try to clean well after bowel movement possibly with baby wipes.-- urinate after intercourse Type 2 diabetes mellitus with A1C 7.9, 7.8 elevated ( diabetic peripheral advised to go back to angiopathy without gangrene glyburide -metformin ) twice a [...] make sure you have no open wounds. S/P carotid endarterectomy f/u with cardiology Hyperlipidemia low fat diet, decrease fast food and fried foods. Increase fruit and vegetable intake. exercise as tolerated 30minutes per day at least 3 days a week. May take fish oil 1000mg twice daily to help increase good cholesterol (HDL). History of seizure blood cultures positive gram EEG normal on 06/06/2020 f/u negative rods citrobacter with neurology koseri x2-- will recheck blood culture to make sure resolved after completion of cefdinir.-- infection may have been cause of seizures/ acute rigors. Bilateral carotid artery 05/06/20 cardiac cath shows stenosis moderate steonsis of right carotid artery 50-69 % stenosis will need t reatment -- s/p carotid endarterectomy 06/03 20--left shows mild stenosis- on statin and antiplate let- following up with ca rdiology CAD (coronary artery disease) low fat diet, [...] plavix and cilostazol.- continue f/u with cardiology Alberto and will need referral to cardiovascular sugeon Stented coronary artery low fat diet, diet and exercise weightloss-- f/u with cardiology- control diabetes, htn, high cholesterol. Treatment Notes Test Name Order Date Urinalysis, Complete 2020-06-15 Blood Culture, Routine 2020-06-15 Comp. Metabolic Panel (14) (CMP) 2020-06-15 CBC With Differential/Platelet 2020-06-15 Next Appt Details 1 Week labs f/u 1 month Reason:labs Provider Name:Sophia Mccracken, 2020-08-12 08:0 0:00 AM, [address], [place], [address], Follow Up:1 Week labs f/u 1 monthlabs Insurance Providers Payer Name Payer Payer Insured Name Patient Coverage Covera ge End Address Phone Relationship to Start Date Mike e Insured [employer] [phone] Alexander Walker [id number] and Blue [id number] R [id number] [facility] [id number] [phone]
--- OUTSIDE RECORDS SUMMARY | 2020-07-24 09:12 | XMS REPORT ---
:1955 Author Organization [facility] Address [address] [place] [address] Care Team Providers Name Role Phone Mccracken Unavailable [phone] PROBLEMS Type Condition ICD9-CM [id number] Onset Condition SNOMED Code Notes Code Code Dates Status Problem HTN (hypertension) I10 Active 70951255 Problem CAD (coronary I25.10 Active 93535632 artery disease) Problem Diabetes E11.9 Active 422983633 Problem Obesity E66.9 Active 049310428 Problem Stented coronary Z95.5 Active 928214573 artery Problem Hyperlipidemia E78.5 Active 15346440 Problem Unspecified I70.209 Active 566001140571223 atherosclerosis of [place] arteries of extremities, unspecified extremity Problem Depression with F41.8 Active 862687636 anxiety Problem Allergic arthritis M13.89 Active 26432606 Problem Intermittent I73.9 Active 24160967 claudication Problem 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 589348868 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 Problem PUD (peptic ulcer K27.9 Active 84325308 disease) Problem Memory changes R41.3 Active 250485848 Problem Lower extremity R60.0 Active 407588597 edema Problem Type 2 diabetes E11.51 Active 940062585 mellitus with diabetic peripheral angiopathy without gangrene Problem Peripheral I73.9 Active 615117258 vascular disease Problem Pain in right hip M25.551 Active 20272688 Problem Pain in left hip M25.552 Active 55095460 Problem Tremor R25.1 Active 69281951 Problem Multiple joint M25.50 Active 74811853 pain ALLERGIES Allergen (clinical drug Drug/Non Drug Allergy Reaction Allergy Type Onset Date Status ingredient) documented on EMR pregabalin Lyrica([facility] Unknown Drug Allergy Active Code:[address]-94) ciprofloxacin Cipro([facility] Unknown Drug Allergy Active Code:[address]-17) ENCOUNTERS from 1955 to 2020-05-09 Encounter Location Date Provider Diagnosis [facility] [address] [facility] [address] [address] Apr, 2020 [place] [address] IMMUNIZATIONS Vaccine Route Administration Date Status Pneumovax [...] Name:Sophia Mccracken, 2020-08-12 08:0 0:00 AM, [address], [address], [place], [address], Insurance Providers Payer Name Payer Payer Insured Name Patient Coverage Covera End Address Phone Relationship to Start Date Mike e Insured [employer] [phone] Alexander Walker [id number] and Luke [id number] R [id number] [facility] [id number]
--- OUTSIDE RECORDS SUMMARY | 2020-07-24 09:12 | XMS REPORT | Continuity of Care Document ---
:1955 Author Organization [facility] t Address [address] [place] [address] Care Team Providers Name Role Phone Elvi Mccracken DO Primary Care Physician Jose A WILLS Attending Clinician Donnell Hudson MD Attending Clinician DONNELL HUDSON Attending Clinician Unavailable Ashwin Lara MD Attending Clinician Joseph Almonte MD Attending Clinician Tyrel WHITTINGTON S Attending Clinician Unavailable Mina WHITTINGTON Attending Clinician Chioma DELGADO Attending Clinician Unavailable ATTAR Attending Clinician Unavailable Attdanita WILLS Attending Clinician DONNELL UHDSON Admitting Clinician Unavailable Payers Payer Name Policy Type Policy Effective Date Expiration Date Sour ce Number BCBSHEALTHSELECT IN [id number] 2017 [facility] ton AREA/HMO BLUE 0 00:00:00 Christian [id number] 2017-PresentO BLUE CROSS/BLUE [id number] [address] [facility] [facility] SHIELDBCBS HMO 0 00:00:00 - Medical BLUE/ESSENTIALSxxxxxx [facility] [id number] 2017-Presen [id number], [place] [address]XFH/POS Problems Condition Condition Condition Status Onset Resolution Last Treating Co mments Source Name Details Category Date Date Treatment Clinician Date Carotid Carotid Disease Active 2019-[address] [facility] artery artery 0-15 [facility] - disease disease 00:00: Medical 00 Center Preoperati Preoperati Disease Active 2019-[address] ve ve 0-15 [facility] - evaluation evaluation 00:00: Me dical to rule to rule 00 Center out out surgical surgical contraindi contraindi cation cation Coronary Coronary Disease Active [facility] artery artery [facility] Diabetes Diabetes Disease Active [facility] mellitus mellitus [facility] Hypertensi Hypertensi Disease Active [facility] on on [facility] Hyperlipid Hyperlipid Disease Active [facility] emia emia [facility] Allergies, Adverse Reactions, Alerts Allergy Allergy Status Severity Reaction(s) Onset Inactive Treating Comm ents Source Name Type Date Date Clinician Ciproflo Propensi Active [facility] xacin ty to 05-14 [facility] - adverse 00:00: Medical reaction 00 [facility] s Latex Propensi Active [facility] ty to 30 [facility] - adverse 00:00: Medical reaction 00 [place] s [place] Drug Active Other [facility] in Allergy 4-03 reaction( [facility] - 00:00: s): Info Medical 00 Not Center Available , UnknownOt her reaction( s): Unknown Ciproflo Propensi Active Other (See hallucina Fritz xacin ty to Comments) 03-07 tion Methodi adverse 00:00: st reaction 00 s to drug Latex Propensi Active Rash Fritz ty to 03-07 Methodi adverse 00:00: st reaction 00 s to drug Morphine Propensi Active Other (See Hallucina Fritz ty to Comments) 24 tion Methodi adverse 00:00: st reaction 00 s to drug Adhesive Propensi Active Rash 2010-[address] [facility] ty to 09-01 [facility] - adverse 00:00: Medical reaction 00 [place] s Lyrica Adverse Active Info Not [facility] Reaction Available [facility] ent [facility] Cipro Adverse Active Info Not [facility] Reaction Available [facility] Family History Family Member Diagnosis Comments Start Date Stop Date Source Natural father Heart disease [facility] Natural father Heart attack [facility] Natural father Hypertension [facility] Natural brother Heart attack [facility] Natural brother Hypertension [facility] Natural mother Stroke [facility] Social History Social Habit Start Date Stop Date Quantity Comments Source History of tobacco Current smoker [place] [facility] use Exposure to Not sure [place] [facility] dist SARS-CoV-2 (event) History SDOH [facility] - [facility] Std Drinks [facility] History SDOH [facility] - Alcohol Binge Medical Angelica ter Sex Assigned At [facility] Cigarettes smoked 2020-06-18 2020-06-[address] [facility] - current (pack per 00:00:00 00:00:00 [facility] Center day) - Reported Cigarette 2020-06-18 2020-06-[address] [facility] - pack-years 00:00:00 00:00:00 [facility] Tobacco use and 2020-06-18 2020-06-18 Never used [facility] - exposure 00:00:00 00:00:00 [facility] Alcohol intake 2020-06-18 2020-06-18 [facility] - 00:[facility]00 00:00:00 of alcohol [facility] Center (finding) History SDOH 2020-05-14 2020-05-[address] [facility] - Alcohol Frequency 00:00:00 00:00:00 [facility] Tobacco Comment 2017-03-07 2017-03-07 quit Lam Verdugo ethodist 00:00:00 00:00:00 Smoking Status Start Date Stop Date Source Former smoker 2020-06-18 00:00:00 2020-06-18 00:00:00 [facility] Medications Ordered Filled Start Stop Current Ordering Indication Dosage Frequency Signature Comments Components Source Medication Medication Date Date Medication? Clinician (SIG) Name Name glyburide-m 2019-08 Yes 2{tbl} Q.5D Take 2 [place] etformin 2-09 tablets by [facility] ambrosio (GLUCOVANCE 13:46: mouth 2 st ) 5-500 mg 53 (two) per tablet times a day with meals. dulaglutide 2019-08 Yes .75mg Q1W Inject Rito ston (TRULICITY) 2-09 0.75 mg Metho di 0.75 mg/0.5 13:46: under the s t mL pen 53 skin every injector 7 days. sundays INSULIN 2019-08 Yes 15U [id number] Inject 15 Fritz LISPRO 2-09 [id number] Units Method i (HUMALOG 13:46: 3D under the st SUBQ) 53 skin 3 (three) times a day. losartan 2019-08 Yes 100mg QD Take 100 [place] (COZAAR) 2-09 mg by Methodi 100 MG 13:46: mouth st tablet 53 every morning. nebivolol 2019-08 Yes 10mg QD Take 10 mg [place] (BYSTOLIC) 2-09 by mouth Metho di 10 MG 13:46: every st tablet 53 evening. CLOPIDOGREL 2019-08 Yes 75mg QD Take 75 mg Fritz BISULFATE 2-09 by mouth Method i (CLOPIDOGRE 13:46: daily. st L ORAL) 53 rosuvastati 2019-08 Yes 10mg QD Take 10 mg Fritz n (CRESTOR) 2-09 by mouth Meth messi 10 MG 13:46: nightly. st tablet 53 cetirizine 2019-08 Yes 10mg QD Take 10 mg [place] (ZyrTEC) 10 2-09 by mouth Meth messi MG tablet 13:46: nightly. st 53 aspirin 2019-08 Yes 81mg QD Take 81 mg [place] (ECOTRIN) 2-09 by mouth Method i 81 MG 13:46: nightly. st enteric 53 coated tablet insulin 2019-08 Yes 40U QD Inject 40 [place] GLARGINE 2-09 Units Methodi (LANTUS) 13:46: under the st 100 unit/mL 53 skin injection nightly. (vial) UNABLE TO 2019-08 Yes [place] FIND 2- OTC - 1 PO Methodi 13:46: QHS st 53 ascorbic 2019-08 Yes 1000mg QD Take 1,000 [place] acid, 2-09 mg by Methodi vitamin C, 13:46: mouth st (vitamin C) 53 daily. 1000 MG tablet vitamin E 2019-08 Yes 400U QD Take 400 [place] 400 UNIT 2-09 Units by Methodi capsule 13:46: mouth st 53 daily. ibuprofen 2019-08 2020- No 600mg Q6H Take 600 [place] (ADVIL) 600 2-09 12-09 mg by Method i MG tablet 13:46: 00:[address] 53 :00 every 6 (six) hours as needed. primidone 2019-08 Yes Essential Wk 1: 1/2 [place] (MYSOLINE) 2-09 tremor tablet at M ethodi 50 MG 00:00: bedtime Wk st tablet 00 2: 1 tablet at bedtime Wk 3: 1 tablet twice a day Wk 4: 1 tablet three times a day and continue. insulin 2019-08 Yes 35U QD Inject 35 [facility] glargine 1-04 Units [facility] - (LANTUS) 16:20: subcutaneo Med ical 100 unit/mL 07 usly Center injection nightly Use as directed . insulin 2019-08 Yes 14U Inject 14 [facility] t lispro 1-04 Units [facility] - (HUMALOG) 16:20: subcutaneo Me dical 100 unit/mL 07 usly 3 Center InPn (three) times daily before meals . glyBURIDE-m 2019-08 Yes 1{tbl} Take [address] etFORMIN 1-04 tablet by [facility] - (GLUCOVANCE 16:20: mouth 2 Med ical ) 5-500 mg 07 (two) Center per tablet times daily with breakfast and dinner . cetirizine 2019-08 Yes 10mg QD Take [address] (ZYRTEC) 10 1-04 by mouth Luke s - MG tablet 16:20: daily. Medica l 07 Center aspirin 81 2019-08 Yes 81mg QD Take [address] MG EC 1-04 by mouth [facility] - tablet 16:20: daily. Medical 07 Center amoxicillin 2019-08 2020- No Q.5D 2 (two) [facility] -clavulanat 0-10 10-16 times [facility] - e 00:00: 00:00 daily. Medical (AUGMENTIN) 00 :00 Center 875-125 mg per tablet TRULICITY Yes 1.5mg Q7D 1.[address] [facility] 1.5 mg/0.5 9-21 Subconjunc Kathryn es - mL PnIj 00:00: tival Medical 00 route once Center a week . DULoxetine 2020-0 Yes 60mg QD Take [address] (CYMBALTA) 9-21 by mouth [facility] - 30 MG 00:00: nightly . Medical capsule 00 [facility] rosuvastati 2020-0 Yes 10mg QD Take [address] n (CRESTOR) 9-21 by mouth Luke s - 10 MG 00:00: daily . Medical tablet 00 [place] clopidogreL 2020-0 Yes 75mg QD Take [address] (PLAVIX) 75 9-18 by mouth Luke s - mg tablet 00:00: daily . Medic al 00 [place] FOLBEE 2020-0 Yes 1{tbl} QD Take [address] 2.5-25-1 mg 8-11 tablet by Kathryn es - Tab tablet 00:00: mouth Medica l 00 daily. [place] DEXILANT 60 2020-0 Yes 1{capsu QD Take [address] mg capsule 8-07 le} capsule by Kathryn es - 00:00: mouth Medical 00 daily. [place] hydroCHLORO 2020-0 Yes 25mg QD Take [address] thiazide 7-07 by mouth [facility] - (HYDRODIURI 00:00: daily . Med ical L) 25 MG 00 [place]ball tablet losartan 2019-0 Yes 100mg QD Take [address] (COZAAR) 7-07 mg by [facility] - 100 MG 00:00: mouth Medical tablet 00 daily . Kim[facility] BYSTOLIC 20 2019-0 Yes 20mg QD Take [address] mg Tab 7-07 by mouth [facility] - 00:00: daily . Medical 00 [place] diazePAM 2019-0 2020- No 5mg Q6H Take 5 mg Rito ston (VALIUM) 5 6-07 02- by mouth Meth messi MG tablet 10:58: 00:[address] 03 :00 (six) hours as needed. DULoxetine 2019-0 Yes Paresthesia Take 2 Fritz (Cymbalta) 6-26 tabs at Method i 30 MG 00:00: night x 1 st capsule 00 month, then increase to 3 tabs at night and continue DULoxetine 2020-0 2020- No Paresthesia 30mg QD Take 1 Fritz (Cymbalta) 4-21 06-26 capsule Metho di 30 MG 00:00: 00:00 ([address] capsule 00 :00 total) by mouth daily. folic 2020-0 Yes Bilateral 1{tbl} QD Take 1 Rito ston acid-vit 2-12 carpal tablet by Meth messi B6-vit B12 00:00: tunnel mouth st (FOLBEE) 00 syndrome daily. 2.5-25-1 mg tablet memantine 2019- No Memory loss 10mg Q.5D Take 1 Fritz (NAMENDA) 2-07 26- or tablet (10 Met hodi 10 MG 00:00: 00:00 impairment mg total) st tablet 00 :00 by mouth 2 (two) times a day. DULoxetine 2019- No Paresthesia 30mg QD Take 1 Fritz (CYMBALTA) 2 04-21 capsule Metho di 30 MG 00:00: 00:00 ([address] capsule 00 :00 total) by mouth daily. memantine 2019- No Memory loss Wk 1: 5 mg Fritz (NAMENDA) 5 2- 04-17 or at night Met hodi MG tablet 00:00: 00:00 impairment W2: [address] 00 :00 twice daily W3:10 mg am 5 mg night donepezil 2018-08- No Memory loss 5mg QD Take 1 Fritz (ARICEPT) 5 0-18 -12 or tablet (5 Me thodi MG tablet 00:00: 00:00 impairment mg total) st 00 :00 by mouth nightly. donepezil 2018-08- No Memory loss 10mg QD Take 1 Fritz (ARICEPT) 0-18 -12 or tablet (10 Met hodi 10 MG 00:00: 00:00 impairment mg total) st tablet 00 :00 by mouth nightly. hydroCHLORO Yes 25mg QD Take 25 mg Fritz thiazide 9-26 by mouth Methodi (HYDRODIURI 00:00: every st L) 25 MG 00 morning. tablet pantoprazol 2019- No 40mg Q.5D Take 40 mg Fritz e 03-2712 by mouth 2 Methodi (PROTONIX) 00:00: 00:00 (two) st 40 MG EC 00 :00 times a tablet day. Jhonny Barry Yes Na Mccracken TAKE [address] TABLET BY [facility] - MOUTH ONCE Memoria A DAY l Outpati ent Clinics Immunizations Ordered Filled Immunization Date Status Comments [facility] e Immunization Name Name Jackeline Viveros 2019-05-[address] [facility] 00[facility] Vital Signs Vital Name Observation Time Observation Value Comments Source Systolic blood 2020-07-23 13:44:00 110 mm[Hg] [place] [facility] pressure Diastolic blood 2020-07-23 13:44:00 62 mm[Hg] [place] pressure Heart rate 2020-07-23 13:44:00 71 /min [place] [facility] Body temperature 2020-07-23 13:44:00 35.67 Penny [place] [facility] Body height 2020-07-23 13:44:00 180.3 cm [place] [facility] Body weight 2020-07-23 13:44:00 115.667 kg [place] [facility] BMI 2020-07-23 13:44:00 35.57 kg/m2 [facility] Systolic blood 2020-05-30 15:00:00 161 mm[Hg] [facility] Diastolic blood 2020-05-30 15:00:00 70 mm[Hg] [facility] Heart rate 2020-05-30 15:00:00 65 /min [facility] Body temperature 2020-05-30 15:00:00 36.22 Penny [facility] Respiratory rate 2020-05-30 15:00:00 16 /min [facility] Oxygen saturation in 2020-05-30 15:00:00 97 /min [facility] Arterial blood by Medical Ce nter Pulse oximetry Body height 2020-05-29 05:42:00 180.3 cm [facility] Body weight 2020-05-29 05:42:00 115.713 kg [facility] BMI 2020-05-29 05:42:00 35.58 kg/m2 [facility] Procedures Procedure Date / Time Performing Clinician Source Performed POCT-GLUCOSE METER 2020-05-30 10:54:00 Ad Hudson [facility] XR CHEST 1 VIEW 2020-05-30 09:20:00 Raven Rojo [facility] es - PORTABLE/BEDSIDE [facility] POCT-GLUCOSE METER 2020-05-30 07:51:00 Ad Hudson [facility] CBC W/PLT COUNT & AUTO 2020-05-30 07:06:00 Anthony Olivia [facility] BASIC METABOLIC PANEL 2020-05-30 05:43:[address] CALCIUM, IONIZED 2020-05-30 05:43:00 Ne [facility] PHOSPHORUS 2020-05-30 05:43:00 Ne [facility] MAGNESIUM 2020-05-30 05:43[facility] T4 IF INDICATED 2020-05-30 05:43:00 [facility] HEMOGLOBIN A1C 2020-05-30 05:43:00 [facility] POCT-GLUCOSE METER 2020-05-29 22:04:00 [facility] POCT-GLUCOSE METER 2020-05-29 16:44:00 [facility] POCT-GLUCOSE METER 2020-05-29 12:29:00 [facility] CBC (HEMOGRAM ONLY) 2020-05-29 12:28:00 [facility] BASIC METABOLIC PANEL 2020-05-29 12:28:00 [facility] () [facility] HC SOMATOSENSORY TEST, 4 2020-05-29 11:50:00 [facility] TISSUE EXAM 2020-05-29 10:31:00 [facility] CALCIUM, IONIZED 2020-05-29 10:11:09 Bryan Lara [facility] BLOOD GAS, ARTERIAL 2020-05-29 10:11:09 Bryan Lara [facility] SODIUM NA-STAT LAB 2020-05-29 10:11:09 Bryan Lara [facility] POTASSIUM-STAT LAB 2020-05-29 10:11:09 Bryan Lara [facility] GLUCOSE-STAT LAB 2020-05-29 10:11:09 Bryan aLra [facility] HGB/HCT (H&H) - STAT LAB 2020-05-29 10:11:09 Bryan Lara [facility] ENDARTERECTOMY,CAROTID 2020-05-29 08:23:00 Liz [facility] ABORH, MANUAL 2020-05-29 06:28:00 Lulu Madera [facility] POCT-GLUCOSE METER 2020-05-29 05:50:00 Liz [facility] PLATELET AGGREGATION: 2020-05-28 10:34:00 Lzi [facility] - FUNCTION SCREEN [facility] SARS-COV2/RT-PCR ([facility] & 2020-05-28 10:15:00 Liz [facility] - REF LABS) [facility] TRANSFUSION SERVICE 2020-05-22 18:05:49 Provider, [facility] - REPORT - SCAN [facility] BASIC METABOLIC PANEL 2020-05-21 11:01:00 Liz [facility] - (7) [facility] PROTHROMBIN TIME/INR 2020-05-21 11:01:00 Liz [facility] PLATELET AGGREGATION: 2020-05-21 11:01:00 Liz [facility] - FUNCTION SCREEN [facility] TYPE AND SCREEN, 2020-05-21 11:01:00 Liz [facility] - AUTOMATED [facility] CBC W/PLT COUNT & AUTO 2020-05-21 11:01:00 Liz [facility] DIFFERENTIAL [facility] SARS-COV2/RT-PCR ([facility] & 2020-05-21 10:38:00 Liz [facility] - REF LABS) [facility] ECG 12-LEAD 2020-05-21 10:32:22 Liz [facility] MRI LUMBAR SPINE WO 2020-03-13 13:10:54 NinTej jarviscarol [facility] CONTRAST MRI THORACIC SPINE WO 2020-03-13 12:55:16 Bronwyn Aguirre [facility] CONTRAST MRI CERVICAL SPINE WO 2020-03-13 12:29:12 Bronwyn Aguirre n Christian CONTRAST PET BRAIN METABOLIC EVAL 2020-03-13 10:26:19 Bronwyn Aguirreu ston Christian POC GLUCOSE 2020-03-13 08:15:00 LarissasimonaBronwyn Lam Meth odist Plan of Care Planned Activity Planned Date Details Comments Source Future Scheduled 2020-11-[address] [facility] - Test 00:00:00 measurement [facility] Center (procedure) [code = 92109303] Future Scheduled 2020-04-15 INFLUENZA VACCINE (#1) [facility] Test 00:00:00 [code = INFLUENZA Medical Ce nter VACCINE (#1)] Future Scheduled 2020-03-15 INFLUENZA VACCINE [place] [facility] Test 00:00:00 [code = INFLUENZA VACCINE] Future Scheduled 2019-08-[address] [facility] - Test 00:00:00 (12+) [code = Medical Center DEPRESSION SCREENING (12+)] Future Scheduled 2007-11-15 COLONOSCOPY SCREENING [place] [facility] Test 00:00:00 [code = COLONOSCOPY SCREENING] Future Scheduled 2007-11-15 SHINGLES VACCINES (#1) [place] [facility] Test 00:00:00 [code = SHINGLES VACCINES (#1)] Future Scheduled [address] [facility] - Test 00:00:00 (procedure) [code = Medical Center 83493425] Future Scheduled 1967-11-15 DIABETES: RETINAL EYE [place] [facility] Test 00:00:00 EXAM [code = DIABETES: RETINAL EYE EXAM] Future Scheduled 1967-11-15 DIABETIC FOOT EXAM [place] Test 00:00:00 [code = DIABETIC FOOT EXAM] Future Scheduled 1967-11-15 URINE MICROALBUMIN [place] [facility] Test 00:00:00 [code = URINE MICROALBUMIN] Future Scheduled 1967-11-[address] DIAB[address] EYE EXAM [facility] Test 00:00:00 [code = DIABETIC EYE Medical Center EXAM] Future Scheduled 1967-11-[address] Kathryn es - Test 00:00:00 examination Medical Center (regime/therapy) [code = 166123443] Future Scheduled 1967-11-15 Urine screening for JOHN Jaffe [facility] - Test 00:00:00 protein (procedure) Medical Center [code = 073431375] Future Scheduled 1955 Screening for JOHN Jaffe Kathryn es - Test 00:00:00 malignant neoplasm of Medica l Center colon (procedure) [code = 225952831] Encounters Start End Encounter Admission Attending Care Care Encounter Source Date/Time Date/Time Type Type Clinicians Facility Department ID 2020-07-23 2020-07-23 Outpatient BRONWYN AGUIRRE [facility] [id number] [place] 00:00:00 00:00:[address] 2020-07-23 2020-07-23 Outpatient STLMLC [facility]LMLC [id number] [facility] 2020-07-02 2020-07-02 Outpatient STLMLC STLMLC [id number] [facility] 2020-06-21 2020-06-21 Outpatient STLMLC STLMLC [id number] [facility] 2020-06-12 2020-06-12 Outpatient STLMLC STLMLC [id number] [facility] 2020-05-22 2020-05-22 Outpatient STLMLC STLMLC [id number] [facility] 2020-05-22 2020-05-22 Outpatient STLMLC STLMLC [id number] [facility] 2020-05-20 2020-05-20 Outpatient STLMLC STLMLC [id number] [facility] 2020-05-12 2020-05-12 Outpatient STLMLC STLMLC [id number] [facility] 2020-05-09 2020-05-09 Outpatient STLMLC STLMLC [id number] [facility] 2020-05-08 2020-05-08 [id number] 2020-04-22 2020-04-22 Outpatient BRONWYN AGUIRRE [facility] [id number] [place] 00:00:00 00:00:[address] 2020-03-13 2020-03-13 Outpatient BRONWYN AGUIRRE [facility] [id number] [place] 00:00:00 00:00:[address] 2020-03-13 2020-03-13 Outpatient BRONWYN AGUIRRE [facility] [id number] [place] 00:00:00 00:00:[address] 2020-03-13 2020-03-13 Outpatient BRONWYN AGUIRRE [facility] [id number] [place] 00:00:00 00:00:[address] 2020-03-13 2020-03-13 Outpatient BRONWYN AGUIRRE [facility] [id number] [place] 00:00:00 00:00:[address] 2020-02-25 2020-02-25 [facility] [id number] 10:06:00 10:06:00 t [employer] [facility] Medicine Outpati ent Clinics 2020-02-08 2020-02-08 Outpatient BRONWYN AGUIRRE [facility] [id number] [place] 00:00:00 00:00:[address] 2020-01-31 2020-01-31 [facility] [id number] 16:12:00 16:12:[address] [facility] [address] [facility] Medicine Medicine Outpati ent Clinics 2020-01-24 2020-01-24 [facility] [id number] 14:27:00 14:27:00 t [employer] [facility] Medicine l Medicine Outpati ent Clinics 2020-01-14 2020-01-14 [facility] [id number] 09:43:00 09:43:00 t [employer] [facility] Medicine Outpati ent Clinics 2019-12-06 2019-12-06 [facility] [id number] 10:24:00 10:24:00 t [place]ie [place] [employer] [facility] Medicine l Medicine Outpati ent Clinics 2019-12-04 2019-12-04 Outpatient BRONWYN AGUIRRE [facility] [id number] [place] 00:00:00 00:00:[address] 2019-11-26 2019-11-26 [facility] [id number] 11:11:00 11:11:00 t [place]ie [place] [employer] [facility] Medicine l Medicine Outpati ent Clinics 2019-11-16 2019-11-16 [facility] [id number] 08:40:00 08:40:00 t [place] TRIRIGA [facility] Medicine l Medicine Outpati ent Clinics 2019-10-18 2019-10-18 [facility] [id number] 14:21:00 14:21:00 t [place] [employer] TRIRIGA [facility] Medicine l Medicine Outpati ent Clinics 2019-08-16 2019-08-16 [facility] [id number] 08:00:00 08:00:00 t [employer] s TRIRIGA [facility] Medicine l Medicine Outpati ent Clinics 2019-06-14 2019-06-14 Outpatient ATTAR, [facility] [id number] [place] 00:00:00 00:00:00 [facility] 2019-05-28 2019-05-28 [facility] [id number] 16:12:00 16:12:00 t [place] TRIRIGA [facility] Medicine l Medicine Outpati ent Clinics 2019-05-10 2019-05-10 [facility] [id number] 15:12:00 15:12:00 t [place]ie [place] [employer] - Drive [facility] Medicine l Medicine Outpati ent Clinics 2019-05-10 2019-05-10 [facility] [id number] 08:20:00 08:20:00 t [place]ie [place] [employer] [facility] Medicine l Medicine Outpati ent Clinics 2019-05-04 2019-05-04 [facility], [facility] [id number] 11:30:00 23:59:00 Encounter Troy Toscano [id number] [place] [id number] [place] [id number] 2019-04-26 2019-04-26 [facility] [id number] 10:03:00 10:03:[address] Luke s - Drive [facility] Medicine l Medicine Outpati ent Clinics 2019-02-05 2019-02-05 [facility] [id number] 13:55:00 13:55:00 t Donie [employer] Luke s - Drive [facility] Medicine l Medicine Outpati ent Clinics 2019-02-05 2019-02-05 [facility] [id number] 09:40:00 09:40:00 t Donie [employer] Luke s - Drive [facility] Medicine l Medicine Outpati ent Clinics 2018-12-15 2018-12-15 Outpatient [facility] [id number] [facility] 14:33:00 14:33:00 t Donie [employer] Luke s - Drive [facility] Medicine l Medicine Outpati ent Clinics 2018-12-06 2018-12-06 [facility] [id number] [facility] 08:45:00 08:45:00 t Donie [employer] Luke s - Drive [facility] Medicine l Medicine Outpati ent Clinics 2018-12-06 2018-12-06 [facility] [id number] 08:23:00 08:23:00 t Donie [employer] Luke s - Drive [facility] Medicine l Medicine Outpati ent Clinics 2018-11-22 2018-11-22 [facility] [id number] 09:23:00 09:23:[address] Luke s - Drive [facility] Medicine l Medicine Outpati ent Clinics 2018-11-21 2018-11-21 [facility] [id number] 10:16:00 10:16:[address] Luke s - Drive [facility] Medicine l Medicine Outpati ent Clinics 2018-11-10 2018-11-10 [facility] [id number] 08:15:00 08:15:[address] Luke s - Drive [facility] Medicine l Medicine Outpati ent Clinics 2018-09-21 2018-09-21 [facility] [id number] 15:00:00 15:00:[address] Luke s - Drive [facility] Medicine l Medicine Outpati ent Clinics 2018-08-29 2018-08-29 [facility] [id number] [address] 15:57:00 15:57:00 t Donie [employer] [place] - Drive [facility] Medicine l Medicine Outpati ent Clinics 2018-08-11 2018-08-11 [facility] [id number] 08:30:00 08:30:00 t Donie [employer] s - Drive [facility] l Medicine Outpati ent Clinics 2018-05-08 2018-05-08 [facility] [id number] 11:56:00 11:56:00 t Donie [employer] s - Drive [facility] Medicine Medicine Outpati ent Clinics 2018-05-04 2018-05-04 [facility] [id number] 10:17:00 10:17:00 t Donie [employer] s - Drive [facility] Medicine l Medicine Outpati ent Clinics 2018-04-28 2018-04-28 [facility] [id number] 09:45:00 09:45:00 t Donie [employer] s - Drive [facility] Medicine Outpati ent Clinics 2018-03-15 2018-03-15 [facility] [id number] 09:11:00 09:11:00 t Donie [employer] s - Drive [facility] Medicine Medicine Outpati ent Clinics 2018-02-14 2018-02-14 [facility] [id number] 08:46:00 08:46:00 t Donie [employer] s - Drive [facility] Medicine l Medicine Outpati ent Clinics 2018-01-27 2018-01-27 [facility] [id number] 08:15:00 08:15:00 t Donie [employer] s - Drive [facility] Medicine Outpati ent Clinics Results Test Description Test Time Test Comments Results Result Comments Source Tissue Exam 2020-06-09 13:16:00 Test Item Value Reference Range Interpretation Comme nts Case Report (test code = 104) Surgical Pathology Report Case: [id number] Authorizing Provider: Ad Hudson, Collected: 05/29/2020 10:31 AM Ordering Location: [facility] Received: 05/29/2020 12:48 PM PERIOPERATIVE SERVICES Pathologist: Benito Winston MD Specimen: Plaque, RIGHT CAROTID ARTERY PLAQUE DIAGNOSIS (test code = 3220) h7ivzGWwZFNxa1dnXTHcmQLaVdWrYwLfNsBgJp pc dWMxIHtccnRmMVxlcGljOTIwMFxhbnNpXHNwbHRw E0OutucdJRzcKO4vUI4qzHjkgYDwnVWuZSSxUvFu p7zqi097iJEjl0lgUATRbotzsSq2oRrnR48mh0C6 QqakS32qqXVrYGlzqMRwnxluzySfSEWDNZHCTXss LbrCKBYsE2OFM1RRDTtfOH9OOWTWZOEMG8FEPHo3 NANnytLTBJeCMVRPZdCNRYdORf4LO0qGTj6UUKNp XZyYIEKXUXdnYAB4p3zixPVlHFJvsLNrRJQbJAgb ttPlBLAnCrfbopptAWLpRYK2biSdILTwEIfhDOZx FCriKi6wxPKkpMwnKgFpPLGul0rrpiDFapawmGb1 z1wqPNJnHuP8kOTtXNatT1gcbpFleZEiTOYbEPb6 jK40IOQspC0ymYTjLGcrouFgFvU2TOvwUNZaWuW4 YBMakJOpUSSlU5lbSCXjRZcnEPDbEOblsEGsRGG9 sJenq7P6aKJpzFEihDzlOiZxUmRmItGIn0AqGVm2 eNtxK3FlBRPmPdX3uKJkIADiVLrjWFGeJUNanaR1 aP59ORfwoyN6qIFpt0Epv37yw019dX0euWWcTPF7 JYNqMCMwzGZeZDGfUOZ4SVCcwXApM7ltZASjJB0w trnwTQyaQUvhEOGoiJE6CWOvzHNaI2ReSYXjTScf KCBbfqp4CuYbOp0lvXFacWniKLmpx3djw9omfXYa Cdn6OMNhBuJaYgndBRtqm3Onz1axNVMjvm3kMDR4 jNFkyXwlh8F9nIHbGLGvgPZeATPwRF9usUBvGXLq tJ5ubwpsIIUtTdPahvqvSCThsGeuneXrRi8xiXwo FFN4IQpiV9jlfL7oEeR5UJwiT1ghiV1lRSw7OEow LYXbdMR6zjN4VDRpjAFkS8NhzA1qWQOjBP6fbcn6 m1diVZQ3WTveZNZsZfZ6khC5USXlxZFhNCOknDxc XPube301FPF3BsRnDWFdh2ZxI9IbbAoxR01vgMgv R58sPWEubJpchN2fdUusmG1pRfWoEpPbXRajxEbd IZ9hNQPlA2uumASkIKWaCUZpQ3vaIcAfwX7twZzl MMulidUuTHDcFlf6WABvuRUaYJUdLtm6UCBfKHOi G97xcaliFYM2fF9ub8jph1KaNWyyEYI8DPKin89r BNmevlY0TQnlWy8tXRMsRSi5RNxjJDQ0rB== CPT Code(s) (test code = 3357) w4haiCKnRYXoqUG1LnHtTGMuf5dxg1QonFMq cGFy XBoooJPxatKuvf66aNT6wJ48IY8kMLAiXnM9CKDl hiV2Spg5JBNyMUNaxJIaU665o1spb3dnhkSfqVN2 yVqbPFNiABNqPSrvGKKoBfWgXSwxXIA4QCo2LiQf XHBhcn0= CLINICAL HISTORY (test code = 3356) u6iezLIjRBNouOR5QeJiYVBzy9qvx5K sdHBncGFy GKoahRIzlcLkdu95oKS5gI67KQ5wAWHwYxQ4KGLc msG5Zpd7SZYaBKZkdWJlQ060c0qdy9dbhvLsmBY0 pNdgYNKtTRCeGYbrENYyXvHjHBUjb3FdBYzgX46m f2nwHaVwn9Znvd2hvXCjm1AwC7Rpg6QdYIHwgfIg jamhQPMkq8HhS6odkUBzBYennHMtOZahbXvmnAVv fQ== SPECIMEN SOURCE (test code = 3377) m5vnaOSbQGTjvAU4TcHiRKPho0dbk1Vb dHBncGFy FJpuqVQyiiHeab95gRJ9iB40SI2wYNRnIpA9ZWEj epB7Cuj9FYMcXOPfnMOeN131h1ahz9bxjwWpaXG8 fVxwYXJkXHBsYWluXGZzMjAgUGxhcXVlXHBhcn0= GROSS DESCRIPTION (test code = 3366) e8kowHErGMZmtNO4HuTbLTJxh2uqb9 BsdHBncGFy ANladGGagvXpwt04qBW0qW94CD3rSHEtVbE5CRVt uuQ3Wdh4TILnYMSqkPJcP999e0toz8mqhcQvvHZ3 uRcuVITjPSZkZOjfZUUlFxYwPG8xEoHcBAb9IIFs CrKpl8lbiUIvMVcmPSY9nVOxYCAsGEYvJUEmSU60 Z9YmlcToONplCPMcYBFkkS6mUN16iIYzwfLaymLf NhXgDTC1MJpoiybypDGkW2Tfr0CbRTIkmyGbxbkp JYAzVFE8KOKzOKHwWTA2xaS7JB7fl3hxvYRdbO9e cQSwlV75KCVqTDYhVMtqaFAsDUUvY5zsvU8dxrzi PWkkThFcJ69eqvIePXHpllKpv8FsrbXsw1m5pNPf lJPlsVEeMCTeBCUptGTrjR9nXOSdroChJHqlUBTq JMZsaHecFX4vWYHhJPOrmoDbgNZdeFHwbtQbI8Pm DqQsjCAsKikbuM1dMl92ESVdMbGYaFFjEZKzgrOb p2JdxGXwaPIfroKktQHiq08rdCruUANmFSdkNW98 wq8nC9Vwu4Ndf2JdiQhgrlKpSSGnKGwcQRRdNZ2g UCDwVPMueKBxMGpbkWLlMH0bKNhkhDlfht9zhb10 uzIkHLsclCWkK7T6yT3vPyHKdCIyd8ZdY7cyXJ3s nFFla9MtkXy0tATnBLxdHYy5rvDkzdYpmiS2cXGd tdXDWXXxg5BeZLSnNGfyHDHFDg6aeEnpRIK1 MICROSCOPIC DESCRIPTION (test code = g9yynPXzGMXtwSL1IlNpYBRtw1xuh7 BsdHBncGFy 3371) WEfoaUYvehWhcq32eYA4fX16SH3rFBCoNvQ9ESBo axQ5Ykm2SMVjXRGrtMTdU228a2lya5xcpdPgdAL6 yQsaBGTgJFSyMLmdPJEmLeHxXPOwMf1tbYLzOPCa cn0= [facility] [id number] 13:16:00Surgical Pathology Report Case: [id number] Authorizing Provider: Ad Hudson, Collected: 05/29/2020 10:31 AM OrderingLocation: [facility] Received: 05/29/2020 12:48 PM PERIOPERATIVE SERVICES Pathologist: Benito Winston MD Specimen: Plaque, RIGHT CAROTID ARTERY PLAQUE ARTERY, RIGHT CAROTID, ENDARTERECTOMY:CALCIFIC ATHEROSCLEROTIC PLAQUE Signing Pathologist Direct Phone Line: [phone] signed by Benito Winston MD on 06/09/2020 at 1:15 [id number] diagnosis: stenosis of carotid artery, unspecified lateralityPlaqueA. Received fresh labeled with the patient's name, accession number and "plaque, right carotid artery plaque" are two mcpherson-white to yellow and calcified cylindrical fragments consistent with plaque. The circumference is 0.5 cm, and the fragments range from 0.8 to 3.4 cm. There is focal hyperemia on the fragments. Cross section reveals a 0.3 cm thick layer of yellow-brown calcification. The specimen is submitted in its entirety in A1 for decal. JG/plPerformedSHORT-LATENCY SPE, ALL [id number] 15:24:00[facility] : 1955 Sex: MINTRAOPERATIVE MONITORING REPORT Patient Name: Alexander Walker [facility] Surgery Date: 05/29/20 Monitoring began at 0835 and ended at 1150 Surgeon: Guillermo Hudson Examining Neurologist: Mercedes WILLS Monitoring Technologist: JASON Suarez Procedure: Right Carotid Endarterectomy Stimulation Parameters: Ulnar nerves individually stimulated at the wrist Rate 4.7Hz, Intensity 30-35mA, Duration 0.3ms Posterior Tibial nerves individually stimulated at the ankle Rate 4.7Hz, Intensity 40mA, Duration 0.3ms Filters 30-500Hz, Notch Off Motor strip stimulated anterior to C3 and C4 with alternating polarities Intensity 150-700V, Train Rate 4-5, YAMILA 2-3ms Filters 30-2KHz, Notch Off Recording Parameters: C3 and C4, referenced to FPz Free-running EEG recorded with bipolar derivation, using modified International 10/20 placements: FP1-C3, C3-O1, FP1-T3, T3-O1, FP2-C4, C4-O2, FP2-T4, and T4-O2 Description: Intraoperative neurophysiological monitoring was performed using a combination of upper and lower extremity somatosensory evoked potentials and 8 channel free-running EEG. A real-time connection with the examining neurologist was established and maintained throughout the operative procedure by the monitoring technologist. Upper and lower extremity somatosensory evoked potentials were recorded at the cortical levels following median nerve stimulation at the wrist andPTN stimulation at ankles. Post-induction, pre-incision baseline recording responses to median nervestimulation were clear and reproducible with parameter values within normal limits bilaterally. Atclosing, free-running EEG remained symmetrical and at baseline frequencies with no focal changes noted to occur throughout the operative procedure. MD Mercedes SHORT LATENCY SEP ALL [id number] 15:24:00Interface, External Ris In - 06/06/2020 3:25 PM CDTINTRAOPERATIVE MONITORING REPORT Patient Name: Alexander Walker [facility] Surgery Date: 05/29/20 Monitoring began at 0835 and ended at 1150 Surgeon: Guillermo Hudson Examining Neurologist: Mercedes WILLS Monitoring Technologist: JASON Suarez Procedure: Right Carotid Endarterectomy Stimulation Parameters: Ulnar nerves individually stimulated at the wrist Rate 4.7Hz, Intensity 30-35mA, Duration 0.3ms Posterior Tibial nerves individually stimulated at the ankle Rate 4.7Hz, Intensity 40mA, Duration 0.3ms Filters 30-500Hz,Notch Off Motor strip stimulated anterior to C3 and C4 with alternating polarities Intensity 150-700V, Train Rate 4-5, YAMILA 2-3ms Filters 30-2KHz, Notch Off Recording Parameters: C3 and C4, referenced to FPz Free-running EEG recorded with bipolar derivation, using modified International 10/20 placements: FP1-C3, C3-O1, FP1-T3, T3-O1, FP2-C4, C4-O2, FP2-T4, and T4-O2 Description: Intraoperative neurophys iological monitoring was performed using a combination of upper and lower extremity somatosensory evoked potentials and 8 channel free-running EEG. A real-time connection with the examining neurologistwas established and maintained throughout the operative procedure by the monitoring technologist. Upper and lower extremity somatosensory evoked potentials were recorded at the cortical levels following median nerve stimulation at the wrist and PTN stimulation at ankles. Post-induction, pre-incisionbaseline recording responses to median nerve stimulation were clear and reproducible with parameter values within normal limits bilaterally. At closing, free-running EEG remained symmetrical and at baseline frequencies with no focal changes noted to occur throughout the operative procedure. MD Mercedes [facility]-Glucose [id number] 11:06:00 Test Item Value Reference Range Interpretation Comments POC-Glucose Meter (test 267 mg/dL 70-110 H : TE STED AT [facility] code = 1538) 67[address] [facility], 770 30: Refinery Operator Helper/Techni jaden ID = [id number] for JORGE ACE Lab Interpretation (test Abnormal code = 74631-6) [facility]-GLUCOSE [id number] 11:06:00 Test Item Value Reference Range Interpretation Comments POC-GLUCOSE METER 267 mg/dL 70-110 H : TESTED A T [facility] 6720 (BEAKER) (test code = [facility] Charlie [facility], 1538) [address]: Refinery Operator Helper/Techni jaden ID = [id number] for JORGE KRISHNA RAD, CHEST, 1 VIEW, NON [id number] 10:20:00Reason for exam:- >dyspneaShould this be performed at the bedside?->Yes [facility] : 1955 Sex: MFINAL REPORT CLINICAL HISTORY: dyspnea TECHNIQUE: 1 view of the chest. COMPARISON: None IMPRESSION: There is left lower lung atelectasis. The right lung appears well-aerated. There is no significant pleural fluid. The cardiomediastinal silhouette is magnified by technique with sternotomy wires. Signed: Alexis Rosenbaumort Verified Date/Time: 05/30/2020 10:20:48 Reading Location: [facility] Radiology Reading Room XR chest 1 view portable / bedside 2020-05-30 10:20:00Interface, External Ris In - 05/30/2020 10:22 AM CDTFINAL REPORT CLINICAL HISTORY: dyspnea TECHNIQUE: 1 view of the chest. COMPARISON: None IMPRESSION: There is left lower lung atelectasis. The right lung appears well-aerated. There is no significant pleural fluid. The cardiomediastinal silhouette is magnified by technique with sternotomy wires. Signed: Alexis RosenbaumortVerified Date/Time: 05/30/2020 10:20:48 Reading Location: [facility] Radiology Reading Room [facility] 2020-05-30 10:08:00 Test Item Value Reference Range Interpretation Comments Hemoglobin A1C (test code 7.4 % 4.3-6.1 H = 4548-4) FAUSTO (test code = FAUSTO) Refinery Operator Helper ID - ADMIN Lab Interpretation (test Abnormal code = 37309-7) [facility] [id number] 10:08:00 Test Item Value Reference Range Interpretation Comments HEMOGLOBIN A1C (BEAKER) (test code = 7.4 % 4.3-6.1 H 368) [employer]inery Operator Helper ID - ADMINPOCT-GLUCOSE [id number] 08:03:00 Test Item Value Reference Range Interpretation Comments POC-GLUCOSE METER 155 mg/dL 70-110 H : [facility] (BEAKER) (test code = [place], 1538) [address]: Refinery Operator Helper/Techni jaden ID = [id number] for JORGE KRISHNA CBC with platelet count + automated [id number] 07:17:00 Test Item Value Reference Range Interpretation [...] 450 K/CU MM MPV (test code = 46262-0) 10.9 fL 9.4-12.4 nRBC (test code = [...] 2801) Lab Interpretation (test code = Abnormal 50272-6) [facility] W/PLT COUNT & AUTO [id number] 07:17:00 Test Item Value Reference Range Interpretation [...] (test code = 2801) TSH/Free T4 If [id number] 07:10:00 Test Item Value Reference Range Interpretation Comments TSH (test code = 0.888 0.350- 4.940 uIU/mL 25474-8) FAUSTO (test code = FAUSTO) Refinery Operator Helper ID - EDASI Lab Interpretation (test Normal code = 42198-9) [facility] T4 IF [id number] 07:10:00 Test Item Value Reference Range Interpretation Comments THYROID STIMULATING HORMONE 0.888 uIU/mL 0.350-4.940 (BEAKER) (test code = 772) Refinery Operator Helper ID - EDASIBasic Metabolic [id number] 06:50:00 Test Item Value Reference Range Interpretation Comments Sodium (test code = 137 meq/L 121-656 6344-2) Potassium (test code = 4.1 meq/L 3.5-5.1 2823-3) Chloride (test code = 99 meq/L 98-107 2075-0) CO2 (test code = 29 meq/L 22-29 8-9) BUN (test code = 14 mg/dL 7-21 3094-0) Creatinine (test code 1.07 mg/dL 0.57-1.25 = 2160-0) Glucose (test code = 179 mg/dL 70-105 H 2345-7) Calcium (test code = 9.2 mg/dL 8.4-10.2 06895-0) EGFR (test code = 70 mL/min/1.73 [place] [address]-9) NOT ACCURATE CREATININE CLEARANCE IN PREDICTING GLOMERULAR FILTRATION RATE . ESTIMATED GFR I S NOT APPLICABLE FOR DIALYSIS PATIENTS. FAUSTO (test code = FAUSTO) Refinery Operator Helper ID - PIAYA L Lab Interpretation Abnormal (test code = 56651-4) [facility] CenterMagnesium2020-10-16 06:50:00 Test Item Value Reference Range Interpretation Comments Magnesium (test code = 1.4 mg/dL 1.6-2.6 L 84000-2) FAUSTO (test code = FAUSTO) Refinery Operator Helper ID - PIAYA L Lab Interpretation (test Abnormal code = 75575-5) [facility] CenterPhosphorus2020-10-16 06:50:00 Test Item Value Reference Range Interpretation Comments Phosphorus (test code = 3.2 mg/dL 2.3-4.7 2777-1) FAUSTO (test code = FAUSTO) Refinery Operator Helper ID - PIAYA L Lab Interpretation (test Normal code = 14373-0) [facility] CenterBASIC METABOLIC [id number] 06:50:00 Test Item Value Reference Range Interpretation [...] 697) EGFR (BEAKER) (test 70 mL/min/1.73 ESTIMA JOMAR GFR IS code = 1092) sq m NOT ACCURATE CREATININE CLEARANCE IN PREDICTING GLOMERULAR FILTRATION RATE . ESTIMATED GFR I S NOT APPLICABLE FOR DIALYSIS PATIEN TS. Refinery Operator Helper ID - PIAYA [id number] 06:50:00 Test Item Value Reference Range Interpretation Comments MAGNESIUM (BEAKER) (test code = 1.4 mg/dL 1.6-2.6 L 627) Refinery Operator Helper ID - PIAYA [id number] 06:50:00 Test Item Value Reference Range Interpretation Comments PHOSPHORUS (BEAKER) (test code = 3.2 mg/dL 2.3-4.7 604) Refinery Operator Helper ID - GIO LCalcium, [id number] 06:29:00 Test Item Value Reference Range Interpretation Comments Calcium, Ion (test code = 1993-3) 1.14 mmol/L 1.12-1.27 pH, Blood (test code = 30646-6) 7.32 [facility] CenterCAL[facility], [id number] 06:29:00 Test Item Value Reference Range Interpretation Comments CALCIUM IONIZED (BEAKER) (test 1.14 mmol/L 1.12-1.27 code = 698) PH, BLOOD (BEAKER) (test code = 7.32 1810) POCT-GLUCOSE [id number] 22:18:00 Test Item Value Reference Range Interpretation Comments POC-GLUCOSE METER 199 mg/dL 70-110 H : TESTED A T [facility] 6720 (BEAKER) (test code = [facility], 1538) [address]: Refinery Operator Helper/Techni jaden ID = [id number] for DECLAN HUMPHRIES SE POCT-GLUCOSE [id number] 16:56:00 Test Item Value Reference Range Interpretation Comments POC-GLUCOSE METER 196 mg/dL 70-110 H : TESTED A T [facility] 6720 (BEAKER) (test code = [facility], 1538) 86[address]: Refinery Operator Helper/Techni jaden ID = [id number] for SALLY LI Platelet Aggregation: Function [id number] 14:58:00 Test Item Value Reference Range Interpretation Comments Pathologist: (test code Michael Teran MD = 2622) (electronic signature) Platelets (test code = 210 150- 450 K/CU MM 2656) ADP (test code = 38 % 62-100 L 88490-3) Platelet Rich Plasma 278 200- 300 k/cu mm (test code = 2134) Plt. Function Screen Decreased Interpretation (test aggregation with ADP code = 8895) which indicates platelet dysfunction that may be due to medication effect, uremia, or other platelet function disorders. Clinical correlation is required. FAUSTO (test code = FAUSTO) Platelet Function Screen results may be falsely low with platelet counts<75,000/cu mm.Refinery Operator Helper ID - [id number] Lab Interpretation (test Abnormal code = 88626-0) [facility] CenterPLATELET AGGREGATION: FUNCTION [id number] 14:58:00 Test Item Value Reference Range Interpretation Comments [id number] Michael Teran MD (BEAKER) (test code = [...] may be falsely low with platelet counts<75,000/cu mm.Refinery Operator Helper ID- [id number] METABOLIC [id number] 13:00:00 Test Item Value Reference Range Interpretation [...] S NOT APPLICABLE FOR DIALYSIS PATIEN TS. Refinery Operator Helper ID - AJAY MPOCT-GLUCOSE [id number] 12:42:00 Test Item Value Reference Range Interpretation Comments POC-GLUCOSE METER 199 mg/dL 70-110 H : TESTED A T [facility] 6720 (BEAKER) (test code = [place], 1538) [address]: Refinery Operator Helper/Techni jaden ID = [id number] for CLARISSE TAPIA CBC (Hemogram only)2020-05-29 12:38:00 [...] 450 K/CU MM MPV (test code = 61129-6) 10.6 fL 9.4-12.4 nRBC (test code = 413) 0 0- 0 /100 WBC Lab Interpretation (test code = Abnormal 13498-2) [facility] Center[facility] (HEMO[facility] ONLY)2020-05-29 12:38:00 Test Item Value Reference [...] (BEAKER) (test code = 413) Blood gas, [id number] 10:20:00 Test Item Value Reference Range Interpretation Comments pH, Arterial (test code = 2744-1) 7.44 7.35-7.45 pCO2, Arterial (test code = 40 35- 45 mm Hg 2019-03) pO2, Arterial (test code = 2703-7) 334 80- 90 mm Hg H O2 Sat, Arterial (test code = 99.8 % 96-97 H 8-6) HCO3, Arterial (test code = 26 mmol/L 21-29 1960-4) Base Excess, Arterial (test code = 1.8 mmol/L -2-3 1925-7) Patient Temperature (test code = 36.5 8310-5) FIO2 (test code = 1819) 100 Lab Interpretation (test code = Abnormal 92912-5) [facility] CenterHGB/HCT (H&H)-Stat [id number] 10:20:00 Test Item Value Reference Range Interpretation Comments Hemoglobin (test code = 786-4) 12.6 13.0- 16.8 GM/DL L Hematocrit (test code = 4544-3) 37.0 % 40-50 L Lab Interpretation (test code = Abnormal 33089-1) [facility] CenterGlucose-Stat [id number] 10:20:00 Test Item Value Reference Range Interpretation Comments Glucose (test code = 2345-7) 153 mg/dL 70-110 H Lab Interpretation (test code = Abnormal 35454-6) [facility] [id number] 10:20:00 Test Item Value Reference Range Interpretation Comments Sodium (test code = 2951-2) 137 meq/L 136-145 Lab Interpretation (test code = Normal 07340-2) [facility] CenterPotassium-Stat [id number] 10:20:00 Test Item Value Reference Range Interpretation Comments Potassium (test code = 2823-3) 4.0 meq/L 3.6-5.5 Lab Interpretation (test code = Normal 50576-8) [facility] CenterODI[facility] NA-STAT [id number] 10:20:00 Test Item Value Reference Range Interpretation Comments SODIUM (BEAKER) (test code = 381) 137 meq/L 136-145 POTASSIUM-STAT [id number] 10:20:00 Test Item Value Reference Range Interpretation Comments POTASSIUM (BEAKER) (test code = 4.0 meq/L 3.6-5.5 379) BLOOD GAS, [id number] 10:20:00 Test Item Value Reference Range Interpretation [...] (BEAKER) (test code = 1819) 100.0 GLUCOSE-STAT [id number] 10:20:00 Test Item Value Reference Range Interpretation Comments GLUCOSE RANDOM (BEAKER) (test code 153 mg/dL 70-110 H = 652) HGB/HCT (H&H) - STAT [id number] 10:20:00 Test Item Value Reference Range Interpretation Comments HEMOGLOBIN (BEAKER) (test code = 12.6 GM/DL 13.0-16.8 L 410) HEMATOCRIT (BEAKER) (test code = 37.0 % 40.0-50.0 L 411) CALCIUM, [id number] 10:20:00 Test Item Value Reference Range Interpretation Comments CALCIUM IONIZED (BEAKER) (test 1.04 mmol/L 1.12-1.27 L code = 698) PH, BLOOD (BEAKER) (test code = 7.43 1810) bear [id number] 06:53:00 Test Item Value Reference Range Interpretation Comments ABO Grouping (test code = 2588) A Rh Factor (test code = 2589) [facility] [id number] 06:03:00 Test Item Value Reference Range Interpretation Comments POC-GLUCOSE METER 210 mg/dL 70-110 H : TESTED A T [facility] 6720 (BEAKER) (test code [facility], = 1538) 10041: Refinery Operator Helper/Techni jaden ID = [id number] for JORD AN, LACRYSTAL SARS-CoV2/RT-PCR ([facility])2020-05-28 15:06:00 Test Item Value Reference Range Interpretation Comments SARS-COV2/RT-PCR Negative Not Detected, (test code = Negative, See 84377-4) external report for linked test SARS-COV-2 [facility] PERFORMING [facility] (test code = 57125-2) FAUSTO (test code = Negative result for [...] of the Act. Fact Sheet for Healthcare Providers:https://www.[employer]/sites/default/f flo/product/documents/F act_Sheet_HC_Providers_L utg_HPJV-OcF-6.pdf Fact Sheet for Healthcare Patients:https://www.[employer]/sites/default/fi les/product/documents/Fa ct_Sheet_Patients_Lyra_S ARS-CoV-2.pdf Performing Laboratory:[facility] [place] [address] [facility])2020-05-28 15:06:00 Test Item Value Reference Range Interpretation Comments SARS-COV2/RT-PCR (test Negative Not Detected, Negative, code = 0533214) See external report for linked test SARS-COV-2 PERFORMING LAB [facility] (test code = 8669984) Negative result for this test determines that [...] 564(g) of the Act.Fact Sheet for Healthcare Providers:https://www.ReInnervate/sites/default/files/product/documents/Fact_Shee c_XH_Pkqnivcny_Rvcd_RAXK-KjI-1.pdfFact Sheet for Healthcare Patients:https://www.ReInnervate/sites/default/files/product/ documents/Zahg_Rgbuq_Hxfnwfdg_Yeef_LAFR-PeM-2.pdfPerforming Laboratory:[facility].[place], [place] [address]NTEL-PKC0/RT-PCR ([facility])2020-05-21 16:46:00 Test Item Value Reference Range Interpretation Comments SARS-COV2/RT-PCR (test Negative Not Detected, Negative, code = 9386154) See external report for linked test SARS-COV-2 PERFORMING LAB [facility] (test code = 2196690) Negative result for this test determines that [...] 564(g) of the Act.Fact Sheet for Healthcare Providers:https://www.ReInnervate/sites/default/files/product/documents/Fact_Shee r_PQ_Rircqryzg_Yjoi_UUHP-EjX-8.pdfFact Sheet for Healthcare Patients:https://www.ReInnervate/sites/default/files/product/ documents/Zipb_Rqmvd_Izaovasw_Dxai_PRBD-NmB-5.pdfPerforming Laboratory:[address], [place] [address]WGDORYBJ AGGREGATION: FUNCTION [id number] 14:18:00 Test Item Value Reference Range Interpretation Comments [id number] Michael Teran MD (BEAKER) (test code = [...] may be falsely low with platelet counts<75,000/cu mm.Refinery Operator Helper ID- [id number], 76-xujg6684-85-07 14:09:07Interface, External Ris In - 05/21/2020 2:09 PM CDTVentricular Rate 65 BPMAtrial Rate 65 BPMP-R Interval 162 msQRS Duration 166 msQ-T Interval 454 msQTC Calculation(Jordanzerafat) 472 msP Olney 68 degreesR Olney -78 degreesT [place] 59 degreesNormal sinus rhythmLeft axis deviationRight bundle branch blockAbnormal ECGNo previous ECGs availableConfirmed by Brandin Reed ([id number]) on 05/21/2020 2:09:01 [facility]Type [facility], [id number] 12:01:00 Test Item Value Reference Range Interpretation Comments ABO/RH AUTOMATED (BEAKER) (test A POSITIVE code = 2260) Ab Scrn (test code = 890-4) NEGATIVE [facility] Center[facility]OLIC [id number] 12:01:00 Test Item Value Reference Range Interpretation [...] S NOT APPLICABLE FOR DIALYSIS PATIEN TS. Refinery Operator Helper ID - [id number] CProthrombin time/[id number] 11:28:00 Test Item Value Reference Range Interpretation [...] valves. Lab Interpretation Normal (test code = 54017-9) [facility]/[id number] 11:28:00 Test Item Value Reference Range Interpretation [...] mechanical heart valves.CBC W/PLT COUNT & AUTO [id number] 11:12:00 Test Item Value Reference Range Interpretation [...] code = 2801) MRI Lumbar Spine Wo [id number] 13:38:17Hm Interface, Radiology Results 03/13/2020 1:41 PM [...] notably at L4-5 and L5-S1 as detailed above.[id number] Mark's Medical Center Thoracic Spine Wo [id number] 13:22:04Hm Interface, Radiology Results 03/13/2020 1:25 PM [...] T2-3, bilateral T4-5, and bilateral T9-10 and V09-90jvglxomgn to facet and small endplate osteophytes. Disc [...] neural foraminal and subarticular zone stenosis as above.[id number] MethodistI Cervical Spine Wo Vcfcvcmn3298-27-56 13:10:36Hm Interface, Radiology Results 03/13/2020 1:13 PM [...] C3-4, C4-5, C5-6, and C6-7.No abnormal cord signal.[facility]-[id number] MethodistPET Brain Metabolic Cbrj2739-21-55 11:31:52Hm Interface, Radiology Results 03/13/2020 11:33 AM CDTPROCEDURE: PET BRAIN METABOLIC [...] definitive metabolic evidence of a progressive neurodegenerative disorder.[facility]-[id number] MethodA[facility] gjjobaf6386-47-74 08:16:33 Test Item Value Reference Range Interpretation Comments POC glucose (test code = 134 mg/dL 65-99 H Ope rator Name: Bailey [id number]) Rosalba ID: [id number] able: No Action Neede d Lab Interpretation (test Abnormal code = 98727-7) Lam Garcia
--- OUTSIDE RECORDS SUMMARY | 2020-07-24 09:12 | XMS REPORT ---
:1955 Author Organization [facility] Address [address] [place] [address] Care Team Providers Name Role Phone Mccracken Unavailable [phone] PROBLEMS Type Condition ICD9-CM QBP10-EQ Onset Condition SNOMED Code Notes Code Code Dates Status Problem Diabetes E11.9 Active 056892319 Problem Obesity E66.9 Active 160574976 Problem Stented coronary Z95.5 Active 835007713 artery Problem Hyperlipidemia E78.5 Active 23158071 Problem Type 2 diabetes E11.51 Active 103202795 mellitus with diabetic peripheral angiopathy without gangrene Problem Depression with F41.8 Active 377203286 anxiety Problem Allergic arthritis M13.89 Active 69883867 Problem Memory changes R41.3 Active 209446589 Problem 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 574429379 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 Problem Pain in left hip M25.552 Active 26335188 Problem Pain in right hip M25.551 Active 98789940 Problem Bilateral carotid I65.23 Active 829337508 artery stenosis Problem Intermittent I73.9 Active 47981706 claudication Problem CAD (coronary I25.10 Active 97047643 artery disease) Problem Occlusion and I65.29 Active 722859581 stenosis of unspecified carotid artery Problem Unspecified I70.209 Active 922733756671484 atherosclerosis of [place] arteries of extremities, unspecified extremity Problem Peripheral I73.9 Active 777484034 vascular disease Problem HTN (hypertension) I10 Active 22894211 Problem Tremor R25.1 Active 17023540 Problem Multiple joint M25.50 Active 48180948 pain Problem Lower extremity R60.0 Active 038356051 edema Problem PUD (peptic ulcer K27.9 Active 75283793 disease) ALLERGIES Allergen (clinical drug Drug/Non Drug Allergy Reaction Allergy Type Onset Date Status ingredient) documented on EMR pregabalin Lyrica([facility] Unknown Drug Allergy Active Code:[address]-07) ciprofloxacin Cipro([facility] Unknown Drug Allergy Active Code:[address]-68) ENCOUNTERS from 1955 to 2020-05-13 Encounter Location Date Provider Diagnosis [facility] [address] [place], Sophia Mccracken HTN (hypertension) I10 ; Family [facility] [address], Type 2 [place] [address] with diabetic peripheral angiopathy with out gangrene [...] Results REASON FOR VISIT 6 mo f/u [phone] OUTSIDE , 3 month follow up , [...] AM, [address], [place], [address], Insurance Providers Payer Name Payer Payer Insured Name Patient Coverage Covera ge End Address Phone Relationship to Start Date Mike e Insured [employer] [phone] Alexander Walker [id number] 8 and Luke [id number] 87 R [id number] [facility] [phone]
--- OUTSIDE RECORDS SUMMARY | 2020-07-24 09:12 | XMS REPORT ---
:1955 Author Organization [facility] Address [address] [place] [address] Care Team Providers Name Role Phone Mccracken Unavailable [phone] PROBLEMS Type Condition ICD9-CM WVG58-AO Onset Condition SNOMED Code Notes Code Code Dates Status Problem Obesity E66.9 Active 366908264 Problem HTN (hypertension) I10 Active 75534681 Problem Hyperlipidemia E78.5 Active 28370595 Problem Diabetes E11.9 Active 860851435 Problem Depression with F41.8 Active 163895630 anxiety Problem Stented coronary Z95.5 Active 069497755 artery Problem Memory changes R41.3 Active 547726585 Problem Type 2 diabetes E11.51 Active 318091037 mellitus with diabetic peripheral angiopathy without gangrene Problem Intermittent I73.9 Active 12746268 claudication Problem 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 253943274 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 Problem Pain in right hip M25.551 Active 47184146 Problem PUD (peptic ulcer K27.9 Active 35741905 disease) Problem Unspecified I70.209 Active 885487846834199 atherosclerosis of [place] arteries of extremities, unspecified extremity Problem Peripheral I73.9 Active 919190722 vascular disease Problem Occlusion and I65.29 Active 583636091 stenosis of unspecified carotid artery Problem Allergic arthritis M13.89 Active 90572182 Problem CAD (coronary I25.10 Active 09526514 artery disease) Problem Pain in left hip M25.552 Active 07971744 Problem Tremor R25.1 Active 00524656 Problem Multiple joint M25.50 Active 50406541 pain Problem Lower extremity R60.0 Active 575527962 edema ALLERGIES Allergen (clinical drug Drug/Non Drug Allergy Reaction Allergy Type Onset Date Status ingredient) documented on EMR pregabalin Lyrica([facility] Unknown Drug Allergy Active Code:[address]-31) ciprofloxacin Cipro([facility] Unknown Drug Allergy Active Code:[address]-59) ENCOUNTERS from 1955 to 2020-05-12 Encounter Location Date Provider Diagnosis [facility] [address] [facility] [address] [facility] Apr, Na Kaykay Occ lusion and stenosis Family Medicine [address] [place] [address] [place] [address] artery I65.29 IMMUNIZATIONS Vaccine Route Administration Date [...] No Results REASON FOR VISIT Referral - Medical Screener MEDICAL (GENERAL) HISTORY Type Description Date Medical [...] Name:Sophia Mccracken, 2020-08-12 08:0 0:00 AM, [address] [place], [place], [address], Insurance Providers Payer Name Payer Payer Insured Name Patient Coverage Covera End Address Phone Relationship to Start Date Mike e Insured [employer] [phone] Alexander Walker [id number] 8 and Luke [id number] 87 R :-[id number] [facility] [phone]
--- OUTSIDE RECORDS SUMMARY | 2020-07-24 09:12 | XMS REPORT ---
:1955 Author Organization [facility] Address [address] [place] [address] Care Team Providers Name Role Phone Mccracken Unavailable [phone] PROBLEMS Type Condition ICD9-CM TUL85-ZF Onset Condition SNOMED Code Notes Code Code Dates Status Problem Hyperlipidemia E78.5 Active 19740969 Problem Diabetes E11.9 Active 110014035 Problem Depression with F41.8 Active 906935285 anxiety Problem Stented coronary Z95.5 Active 280680600 artery Problem Memory changes R41.3 Active 042232146 Problem Type 2 diabetes E11.51 Active 939396117 mellitus with diabetic peripheral angiopathy without gangrene Problem Unspecified I70.209 Active 543550004072119 atherosclerosis of [place] arteries of extremities, unspecified extremity Problem Peripheral I73.9 Active 130603347 vascular disease Problem Allergic arthritis M13.89 Active 94946528 Problem Pain in left hip M25.552 Active 40344830 Problem Pain in right hip M25.551 Active 28271728 Problem Tremor R25.1 Active 11477752 Problem Occlusion and I65.29 Active 586931860 stenosis of unspecified carotid artery Problem 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 526272234 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 Problem HTN (hypertension) I10 Active 59462042 Problem Dark brown-colored R82.998 Active 0232531149406 06 urine Problem Intermittent I73.9 Active 25973090 claudication Problem CAD (coronary I25.10 Active 07946306 artery disease) Problem Obesity E66.9 Active 737825799 Problem Multiple joint M25.50 Active 42093913 pain Problem Lower extremity R60.0 Active 140851048 edema Problem PUD (peptic ulcer K27.9 Active 57723224 disease) Problem Bilateral carotid I65.23 Active 269042629 artery stenosis ALLERGIES Allergen (clinical drug Drug/Non Drug Allergy Reaction Allergy Type Onset Date Status ingredient) documented on EMR pregabalin Lyrica([facility] Unknown Drug Allergy Active Code:[address]-93) ciprofloxacin Cipro([facility] Unknown Drug Allergy Active Code:[address]-00) ENCOUNTERS from 1955 to 2020-05-21 Encounter Location Date Provider Diagnosis [facility] Family [address] [facility] [address] [facility] [address], [place] [address] IMMUNIZATIONS Vaccine Route Administration Date Status Pneumovax [...] 0:00 AM, [address], [address], [place], [address], Insurance Providers Payer Name Payer Payer Insured Name Patient Coverage Covera ge End Address Phone Relationship to Start Date Mike e Insured [employer] [phone] Alexander Walker [id number] 8 and Luke [phone] 87 R [id number] [facility] [phone]
--- OUTSIDE RECORDS SUMMARY | 2020-07-24 09:13 | XMS REPORT ---
:1955 Author Organization [facility] Address [address] [place] [address] Care Team Providers Name Role Phone Mccracken Unavailable [phone] PROBLEMS Type Condition ICD9-CM YRW84-XR Onset Condition SNOMED Code Notes Code Code Dates Status Problem Hyperlipidemia E78.5 Active 71161351 Problem Diabetes E11.9 Active 745332433 Problem Depression with F41.8 Active 148346585 anxiety Problem Stented coronary Z95.5 Active 012016845 artery Problem Memory changes R41.3 Active 074430954 Problem Type 2 diabetes E11.51 Active 329179093 mellitus with diabetic peripheral angiopathy without gangrene Problem Unspecified I70.209 Active 371804531740151 atherosclerosis of [place] arteries of extremities, unspecified extremity Problem Peripheral I73.9 Active 532274676 vascular disease Problem Allergic arthritis M13.89 Active 64694754 Problem Pain in left hip M25.552 Active 20131289 Problem Pain in right hip M25.551 Active 13090385 Problem Tremor R25.1 Active 00451810 Problem Occlusion and I65.29 Active 060533720 stenosis of unspecified carotid artery Problem 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 044353255 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 Problem HTN (hypertension) I10 Active 31496845 Problem Dark brown-colored R82.998 Active 9989198393321 06 urine Problem Intermittent I73.9 Active 63350578 claudication Problem CAD (coronary I25.10 Active 16786404 artery disease) Problem Obesity E66.9 Active 103882551 Problem Multiple joint M25.50 Active 22969080 pain Problem Lower extremity R60.0 Active 050826467 edema Problem PUD (peptic ulcer K27.9 Active 52583021 disease) Problem Bilateral carotid I65.23 Active 872181476 artery stenosis ALLERGIES Allergen (clinical drug Drug/Non Drug Allergy Reaction Allergy Type Onset Date Status ingredient) documented on EMR pregabalin Lyrica([facility] Unknown Drug Allergy Active Code:[address]-06) ciprofloxacin Cipro([facility] Unknown Drug Allergy Active Code:[address]-35) ENCOUNTERS from 1955 to 2020-07-23 Encounter Location Date Provider Diagnosis [facility] [address] Jul, Na Kaykay PUD (peptic ulcer [address] [place] [address] disease) K27.9 [address] IMMUNIZATIONS Vaccine Route Administration Date Status Pneumovax [...] No information MEDICATIONS Medication SIG (Take, Route, Notes Start Date End Date Status Frequency, Duration) Rosuvastatin Calcium 10MG 1 tablet Orally Once Active a day for 90 days Zyrtec Allergy 10 MG 1 tablet Orally Once Active a day Hydrochlorothiazide 25 MG 1 tablet in the Not-Taking morning Orally Once a day for 90 days Aspir-81 81 MG 1 tablet Orally Once Active a day Pantoprazole Sodium 40 MG 1 tablet Orally Once Jul, 0 Active a day for 30 days Bystolic 20 MG 1 tablet Orally Once Active a day in PM for 90 day Trulicity 1.5 MG/0.5ML 1.5 mg Subcutaneous Active once a week for 90 days Losartan Potassium 100 MG TAKE 1 TABLET BY Active MOUTH ONCE DAILY for 90 Lantus SoloStar 100 UNIT/ML 35 units daily as Active directed Subcutaneous for 90 days Plavix 75 MG 1 tablet Orally Once Ac tive a day for 90 days Hydrochlorothiazide 25 MG TAKE 1 TABLET BY Not-Taking MOUTH EVERY DAY IN THE MORNING for 90 Plavix 75 MG TAKE 1 TABLET BY Active MOUTH ONCE DAILY for 90 Glyburide-Metformin 5-500 1 tablet with a meal Active MG Orally twice a day for 90 day(s) Crestor 10 MG TAKE 1 TABLET BY Activ e MOUTH ONCE A DAY P.O Q day for 90 days Cilostazol 100 MG 1 tablet 30 minutes Active before or 2 hours after breakfast and dinner Orally once a day Humalog KwikPen 100 UNIT/ML 12 units tid before Active meals Subcutaneous for 90 days Cozaar 100 MG 1 tablet Orally Once A ctive a day in AM for 90 day Bystolic 20 MG 1 tablet Orally Once Active a day for 90 PROCEDURES No Information RESULTS No Results REASON FOR VISIT medication request MEDICAL (GENERAL) HISTORY Type Description Date Medical [...] STATUS No Information ASSESSMENTS Encounter Date Diagnosis Assessment Notes Treatment Notes Treatm ent Clinical Notes Jul, PUD (peptic ulcer disease) (ICD-10 - K27.9) PLAN OF TREATMENT Medication Medication Name Sig Start Date Stop Date Lantus SoloStar 100 UNIT/ML 35 units daily as directed Subcutaneous for 90 days Humalog KwikPen 100 UNIT/ML 12 units tid before meals Subcutaneous for 90 days Losartan Potassium 100 MG TAKE 1 TABLET BY MOUTH ONCE DAILY for 90 Trulicity 1.5 MG/0.5ML 1.5 mg Subcutaneous once a week for 90 days Pantoprazole Sodium 40 MG 1 tablet Orally Once a day for 30 09 D ec, 2019 Plavix 75 MG 1 tablet Orally Once a day for 90 days Aspir-81 81 MG 1 tablet Orally Once a day Glyburide-Metformin 5-500 MG 1 tablet with a meal Orally twice a day for 90 day(s) Cilostazol 100 MG 1 tablet 30 minutes before or 2 hours after breakfast and dinner Orally once a day Next Appt Details Provider Name:Sophia Mccracken, 2020-08-14 08:4 0:00 AM, [address], [place], [address], Insurance Providers Payer Name Payer Payer Insured Name Patient Coverage Covera ge End Address Phone Relationship to Start Date Mike e Insured [employer] [phone] Alexander Walker [id number] 8 and Luke [id number] 87 R :-[id number] [facility] [id number] [phone]
--- OUTSIDE RECORDS SUMMARY | 2020-07-24 09:13 | XMS REPORT ---
:1955 Author Organization [facility] Address [address] [place] [address] Care Team Providers Name Role Phone Mccracken Unavailable [phone] PROBLEMS Type Condition ICD9-CM JRD42-UD Onset Condition SNOMED Code Notes Code Code Dates Status Problem Hyperlipidemia E78.5 Active 60059509 Problem Diabetes E11.9 Active 287048134 Problem Depression with F41.8 Active 527094444 anxiety Problem Stented coronary Z95.5 Active 691855173 artery Problem Memory changes R41.3 Active 286904142 Problem Type 2 diabetes E11.51 Active 133159630 mellitus with diabetic peripheral angiopathy without gangrene Problem Unspecified I70.209 Active 643764213327456 atherosclerosis of [place] arteries of extremities, unspecified extremity Problem Peripheral I73.9 Active 627695043 vascular disease Problem Allergic arthritis M13.89 Active 99903487 Problem Pain in left hip M25.552 Active 71384771 Problem Pain in right hip M25.551 Active 45210826 Problem Tremor R25.1 Active 01423405 Problem Occlusion and I65.29 Active 347465021 stenosis of unspecified carotid artery Problem 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 252171972 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 Problem HTN (hypertension) I10 Active 08429094 Problem Dark brown-colored R82.998 Active 0159387960339 06 urine Problem Intermittent I73.9 Active 85796907 claudication Problem CAD (coronary I25.10 Active 70492136 artery disease) Problem Obesity E66.9 Active 174696183 Problem Multiple joint M25.50 Active 63048988 pain Problem Lower extremity R60.0 Active 591454840 edema Problem PUD (peptic ulcer K27.9 Active 00866599 disease) Problem Bilateral carotid I65.23 Active 224466392 artery stenosis ALLERGIES Allergen (clinical drug Drug/Non Drug Allergy Reaction Allergy Type Onset Date Status ingredient) documented on EMR pregabalin Lyrica([facility] Unknown Drug Allergy Active Code:[address]-06) ciprofloxacin Cipro([facility] Unknown Drug Allergy Active Code:[address]-92) ENCOUNTERS from 1955 to 2020-07-03 Encounter Location Date Provider Diagnosis [facility] Family [address] [facility] [address] Jun, 2020 [place] [address] IMMUNIZATIONS Vaccine Route Administration Date Status Pneumovax [...] 1 tablet Orally Once Active a day Bystolic 20 MG 1 tablet Orally Once Active a day for 90 Hydrochlorothiazide 25 MG 1 tablet in the Not-Taking morning Orally Once a day for 90 days Hydrochlorothiazide 25 MG TAKE 1 TABLET BY Not-Taking MOUTH EVERY DAY IN THE MORNING for 90 Rosuvastatin Calcium 10MG 1 tablet Orally Once Active a day for 90 days Plavix 75 MG TAKE 1 TABLET BY Active MOUTH ONCE DAILY for 90 Trulicity 1.5 MG/0.5ML 1.5 mg Subcutaneous Active once a week for 90 days Bystolic 20 MG 1 tablet Orally Once Active a day in PM for 90 day Lantus SoloStar 100 UNIT/ML 35 units daily as Active directed Subcutaneous for 90 days Cilostazol 100 MG 1 tablet 30 minutes Active before or 2 hours after breakfast and dinner Orally once a day Plavix 75 MG 1 tablet Orally Once Ac tive a day for 90 days Cozaar 100 MG 1 tablet Orally Once A ctive a day in AM for 90 day Losartan Potassium 100 MG TAKE 1 TABLET BY Active MOUTH ONCE A DAY for 90 Aspir-81 81 MG 1 tablet Orally Once Active a day Glyburide-Metformin 5-500 MG 1 tablet with a meal Active Orally twice a day for 90 day(s) Humalog KwikPen 100 UNIT/ML 12 units tid before Active meals Subcutaneous for 90 days Crestor 10 MG TAKE 1 TABLET BY Activ e MOUTH ONCE A DAY P.O Q day for 90 days Dexilant 60 MG 1 capsule Orally Acti ve Once a day for 30 day(s) PROCEDURES No Information RESULTS No Results REASON FOR VISIT blood culture negative MEDICAL (GENERAL) HISTORY Type Description Date Medical [...] Orally twice a day for 90 day(s) Next Appt Details Provider Name:Sophia Mccracken, 2020-08-12 08:0 0:00 AM, [address], [place], [address], Insurance Providers Payer Name Payer Payer Insured Name Patient Coverage Covera End Address Phone Relationship to Start Date Mike e Insured [employer] [phone] Alexander Walker [id number] and Lk[place] [id number] R [id number] [facility] [id number] [phone]
--- OUTSIDE RECORDS SUMMARY | 2020-07-24 09:13 | XMS REPORT ---
:1955 Author Organization [facility] Address [address] [place] [address] Care Team Providers Name Role Phone Mccracken Unavailable [phone] PROBLEMS Type Condition ICD9-CM [id number]-RB Onset Condition SNOMED Code Notes Code Code Dates Status Problem Hyperlipidemia E78.5 Active 36407155 Problem Diabetes E11.9 Active 174988133 Problem Depression with F41.8 Active 025567202 anxiety Problem Stented coronary Z95.5 Active 917118010 artery Problem Memory changes R41.3 Active 843557596 Problem Type 2 diabetes E11.51 Active 964321677 mellitus with diabetic peripheral angiopathy without gangrene Problem Unspecified I70.209 Active 887955589476976 atherosclerosis of [place] arteries of extremities, unspecified extremity Problem Peripheral I73.9 Active 294493475 vascular disease Problem Allergic arthritis M13.89 Active 04341686 Problem Pain in left hip M25.552 Active 26870582 Problem Pain in right hip M25.551 Active 59386437 Problem Tremor R25.1 Active 13063865 Problem Occlusion and I65.29 Active 131496801 stenosis of unspecified carotid artery Problem 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 686010507 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 Problem HTN (hypertension) I10 Active 80075163 Problem Dark brown-colored R82.998 Active 2712350614693 06 urine Problem Intermittent I73.9 Active 08620035 claudication Problem CAD (coronary I25.10 Active 48088558 artery disease) Problem Obesity E66.9 Active 057111851 Problem Multiple joint M25.50 Active 09582040 pain Problem Lower extremity R60.0 Active 109627997 edema Problem PUD (peptic ulcer K27.9 Active 17684157 disease) Problem Bilateral carotid I65.23 Active 637747452 artery stenosis ALLERGIES Allergen (clinical drug Drug/Non Drug Allergy Reaction Allergy Type Onset Date Status ingredient) documented on EMR pregabalin Lyrica([facility] Unknown Drug Allergy Active Code:[address]-35) ciprofloxacin Cipro([facility] Unknown Drug Allergy Active Code:[address]-97) ENCOUNTERS from 1955 to 2020-06-25 Encounter Location Date Provider Diagnosis [facility] [address] [facility] [address], [place] [address] IMMUNIZATIONS Vaccine Route Administration Date Status Pneumovax [...] Information RESULTS No Results REASON FOR VISIT labs, blood culture partial MEDICAL (GENERAL) HISTORY Type Description Date Medical [...] Name:Sophia Mccracken, 2020-08-12 08:0 0:00 AM, [address], [place], [address], Insurance Providers Payer Name Payer Payer Insured Name Patient Coverage Covera End Address Phone Relationship to Start Date Mike e Insured [employer] [phone] Alexander Walker [id number] Luke [id number] [id number] [facility] [id number] [phone]
[2020-07-24] MEDS ORDERED: FENTANYL CITR 100 MCG/2 ML ONE (09:43)
[2020-07-24] MEDS ORDERED: HEPARIN 5000 UNIT/ML 1 ML VIAL ONE (09:43)
[2020-07-24] MEDS ORDERED: HEPA 1000U/500MLS 1,000 UNIT/500 ML BAG IV ONE (09:43)
[2020-07-24] MEDS ORDERED: MIDAZOLAM HCL 2 MG/2 ML INJ ONE ×2 (09:43→10:23)
[2020-07-24] MEDS ORDERED: PRASUGREL (EFFIENT) 10 MG TAB ONE (10:56)
[2020-07-24] MEDS ORDERED: ACETAMINOPHEN 325 MG TABLET ONE (13:28)
[2020-07-24 14:30] VITALS: TEMP 97.2; O2SAT 99
[2020-07-24 14:32] VITALS: BP 125/80
--- NOTE | 2020-07-27 18:13 | OP ---
Date of Procedure: 07/24/2020 Surgeon: Dion Wagner MD Dental Intern: Robson Still. Procedure: Selective right SFA angiogram with primary stent of the right femoral-popliteal. Indication: Claudication and peripheral arterial disease and abnormal arterial Doppler and abnormal angiogram in the past. History Of Present Illness: Mr. Walker is 64. Has history of hypertension, diabetes, dyslipidemia, recent carotid endarterectomy, recent abdominal angiogram showing severe stenosis in the right femora l-popliteal with claudication. Procedure In Detail: He was brought to the collaborating supervising physician on 07/24/2020, prepped and draped in the routine sterile fashion. Given Versed for sedation. A left femoral artery approach was used. We put a 6-F rench sheath using the Seldinger technique. I used a TAVERAS catheter to go up and over the iliac bifur cation with a Glidewire that passed the lesion without any difficulties. The TAVERAS catheter was excha nged to a TAVERAS guide. A 4.5 x 20 coronary stent was deployed in the right femoral-popliteal after ex changing the wire to a 0.014 [place] wire. The patient has 0% residual. He tolerated the procedure w ell. There were no complications. Blood loss was 5 mL. Total conscious sedation was 45 minutes. The patient does receive Effient, aspirin during the procedure and heparin. 5000 of heparin were giv en total. Final Diagnosis: Peripheral arterial disease, status post successful primary stent of the right femo ral-popliteal bypass. The patient will remain in the hospital for 2 hours and he will go home after that and he will see me in the office in the next 2 weeks. NEY/REED Voice ID: [id number] Report ID: [id number]
== END 2020-07-24 14:28 | disposition home or self-care (01) ==
LOC: CCL 08:43
DX: I70.213 Atherosclerosis of native arteries of extremities with intermittent claudication, bilateral legs (principal); I10 Essential (primary) hypertension; E11.51 Type 2 diabetes mellitus with diabetic peripheral angiopathy without gangrene; E78.5 Hyperlipidemia, unspecified; Z20.828 Contact with and (suspected) exposure to other viral communicable diseases; F17.210 Nicotine dependence, cigarettes, uncomplicated; I65.23 Occlusion and stenosis of bilateral carotid arteries; Z95.1 Presence of aortocoronary bypass graft; K21.9 Gastro-esophageal reflux disease without esophagitis; Z79.4 Long term (current) use of insulin; Z79.02 Long term (current) use of antithrombotics/antiplatelets; Z79.899 Other long term (current) drug therapy
CPT/HCPCS: 93005; 85025; 80048; 36415; 85610; 82947 ×2; 85347 ×2; 85730; 36200; 37226; U0002; C1893; C1760; C1887 ×2; C1725; J1644 ×2; J2250 ×2; J3010; J7040

== ENCOUNTER 2021-10-07 08:09 | Emergency (ER) | payer BC, OTHER ==
--- OUTSIDE RECORDS SUMMARY | 2021-10-07 08:13 | XMS REPORT | Continuity of Care Document ---
:1955 Author Organization [facility] t Address [address] [place] [address] Care Team Providers Name Role Phone Emi Mccracken Attending Clinician Unavailable BARBARA HUDSON Attending Clinician Unavailable Kartik LE Attending Clinician Unavailable MARVIN Attending Clinician Unavailable Lab, Fam Pob I Attending Clinician Unavailable Marvin HOUSTONP Attending Clinician TIMOTHY Attending Clinician Unavailable ATTAR Attending Clinician Unavailable Attar Attending Clinician BARBARA HUDSON Admitting Clinician Unavailable Payers Payer Name Policy Type Policy Number Effective Date Expiration Date [facility] [id number] 2017 00:00:00 BLUE/ESSENTIALS [facility] [id number] 2017 00:00:00 [facility] REVIEW [id number] 2020 00:00:00 Problems Condition Condition Condition Status Onset Resolution Last Treating Co mments Source Name Details Category Date Date Treatment Clinician Date Vitamin D Vitamin D Disease Active Uni vers deficiency deficiency 6-14 it y of 00:00: [place] 00 Medical Branch Diabetes Diabetes Disease Active Overview: Un sukhwinder mellitus mellitus ICD10 ity of type 2, type 2, Diagnosis [place] uncontroll uncontroll Term Me dical ed, ed, Physical Education Specialist Branch without without Utility complicati complicati ons ons Essential Essential Disease Active Uni vers hypertensi hypertensi it y of [place], benign [place], benign [place] [facility] [place] PVD PVD Disease Active Univers (periphera (periphera it y of l vascular l vascular [place] disease) disease) Medica l Branch HLD HLD Disease Active Overview: Univer s (hyperlipi (hyperlipi ICD10 it y of demia) demia) Diagnosis [place] Term Medical Physical Education Specialist Branch Utility Coronary Coronary Disease Active Unive rs atheroscle atheroscle it y of rosis rosis [facility] Diabetes Diabetes Disease Active Overview: Un sukhwinder mellitus mellitus ICD10 ity of type 2, type 2, Diagnosis [place] uncontroll uncontroll Term Me dical ed, ed, Physical Education Specialist Branch without without Utility complicati complicati ons ons Allergies, Adverse Reactions, Alerts Allergy Allergy Status Severity Reaction(s) Onset Inactive Treating Comm ents Source Name Type Date Date Clinician CIPROFLO Allergy Active [facility]-30 [facility] LATEX Allergy Active [facility] 9[facility]30 [facility] PREGABAL Allergy Active [address] [facility] IN 4-03 [facility] Center Ciproflo Propensi Active Other - See "made me Univers xacin ty to comments 2-10 crazy" ity of adverse 00:00: [place] reaction 00 Medical s to Branch drug CIPROFLO DRUG Active Other-Cmnt Univ ers XACIN INGREDI 2-10 ity of 00:00: [place] 00 Medical Branch Adhesive Propensi Active Rash 2010-08 Univer s ty to 1-18 ity of adverse 00:00: [place] reaction 00 Medical s Branch Latex Propensi Active Rash 2010-08 Univers ty to 1-18 ity of adverse 00:00: [place] reaction 00 Medical s Branch ADHESIVE Drug Active Rash 2010-08 Univers Class 1-18 ity of 00:00: [place] 00 Medical Branch LATEX DRUG Active Rash 2010-08 Univers INGREDI 1-18 ity of 00:00: [place] 00 Medical Branch ADHESIVE Allergy Active Low Rash 2010-[address] [facility] [facility] 1-18 [facility] Center Lyrica Adverse Active Info Not [facility] Reaction Available [facility] Cipro Adverse Active Info Not [facility] Reaction Available [facility] ent Clinics Social History Social Habit Start Date Stop Date Quantity Comments Source Exposure to Not sure University of SARS-CoV-2 [facility] (event) [place] Sex Assigned At Universit y of [facility] Tobacco use and 2013-05-04 2013-05-04 Never used Universit y of exposure 00:00:00 00:00:00 [facility] Alcohol intake 2013-05-04 2013-05-04 Current drinker Unive rsity of 00:00:00 00:00:00 of alcohol [facility] (finding) [place] Alcohol Comment 2011-07-04 2011-07-04 beer Universit y of 00:00:00 00:00:00 [facility] History of 2010-10-04 Cigarette Smoker Universi ty of tobacco use 00:00:00 [facility] Smoking Status Start Date Stop Date Source Former smoker 2013-05-04 00:00:00 2013-05-04 00:00:00 Universi ty of [facility] Medications Ordered Filled Start Stop Current Ordering Indication Dosage Frequency Signature Comments Components Source Medication Medication Date Date Medication? Clinician (SIG) Name Name iohexol 2018- 2019- No 150mL 150 mL, Unive rs (OMNIPAQUE 05-04 Intravenou it y of 350 17:30: 17:30 s, ONCE, 1 [place] BULK-150 00 :00 dose, Fri Medica l mL) 05/04/19 at [place] injection 1230, 150 mL Routine clopidogrel Yes [id number] 75mg Take 1 Tab Univers (PLAVIX) 75 8-22 by mouth ity of mg tablet 00:00: daily. [place] 00 [facility] Branch rosuvastati Yes [id number] 10mg Take 1 Tab Univers n (CRESTOR) 8-22 by mouth ity of 10 mg 00:00: at [place] tablet 00 bedtime. Medical Branch Liraglutide Yes 1.8mg inject 1.8 Univers (VICTOZA) 8-22 mg under ity of 0.6 mg/0.1 00:00: the skin Luis as mL (18 mg/3 00 daily. Medica l mL) [facility] Branch clopidogrel Yes [id number] 75mg Take 1 Tab Univers (PLAVIX) 75 8-22 by mouth ity of mg tablet 00:00: daily. [place] 00 Medical Branch rosuvastati Yes [id number] 10mg Take 1 Tab Univers n (CRESTOR) 8-22 by mouth ity of 10 mg 00:00: at [place] tablet 00 bedtime. Medical Branch Liraglutide Yes 1.8mg inject 1.8 Univers (VICTOZA) 8-22 mg under ity of 0.6 mg/0.1 00:00: the skin Luis as mL (18 mg/3 00 daily. Medica l mL) PnIj Branch Insulin Yes [id number] 4 (four) Un sukhwinder [place], 7-14 times ity of Disposable, 00:00[place]. [place] ([place] 00 Medical ULTRAFINE Branch III MINI PEN) 31 x 3/16 " Ndle insulin Yes 10 units Univer s lispro 7-14 with lunch ity of (HUMALOG 00:00: [place] KWIKPEN) 00 Medical 100 unit/mL Branch pen injector Insulin Yes [id number] 4 (four) Un sukhwinder [place], 7-14 times ity of Disposable, 00:00: [place]. [place] (BD 00 Medical ULTRAFINE Branch III MINI PEN) 31 x 3/16 " Ndle insulin Yes 10 units Univer s lispro 7-14 with lunch ity of (HUMALOG 00:00: [place] KWIKPEN) 00 Medical 100 unit/mL Branch pen injector Insulin Yes [id number] 45U inject 45 U nivers Glargine 4-07 Units ity of (LANTUS 00:00: under the [place] SOLOSTAR) 00 skin at Medical 100 unit/mL bedtime. Bran ch (3 mL) InPn Insulin Yes [id number] 45U inject 45 U nivers Glargine 4-07 Units ity of (LANTUS 00:00: under the [place] SOLOSTAR) 00 skin at Medical 100 unit/mL bedtime. Bran ch (3 mL) InPn glyBURIDE-m Yes [id number] Take two Univers etformin 1-03 tablets ity of (GLUCOVANCE 00:00: twice a Luis as ) 2.5-500 00 day with Medica l mg tablet meals. Branch glyBURIDE-m Yes [id number] Take two Univers etformin 1-03 tablets ity of (GLUCOVANCE 00:00: twice a Luis as ) 2.5-500 00 day with Medica l mg tablet meals. Branch nebivolol Yes [id number] 10mg Take 10 mg Univers (BYSTOLIC) 9-20 by mouth ity o f 10 mg 15:47: daily. [address] aspirin 81 Yes [id number] 81mg Take 81 mg Univers mg chewable 9-20 by mouth ity of tablet 15:47: daily. [address] cetirizine Yes 10mg Take 10 mg U nivers (ZYRTEC) 10 9-20 by mouth ity of mg tablet 15:47: daily. [address] cholecalcif Yes 1000U Take 1,000 Univers isablela, 9-20 Units by ity of vitamin D3, 15:47: mouth [place] (VITAMIN 32 daily. Medical D3) 1,000 Branch unit tablet vitamin Yes 1000ug Take 1,000 Un sukhwinder B-12 9-20 mcg by ity of (VITAMIN 15:47: mouth [place] B-12) 1,000 32 daily. Medica l mcg tablet Branch DOCOSAHEXAN Yes 1200mg Take 1,200 Univers OIC 9-20 mg by ity of ACID/EPA 15:47: mouth. [place] (FISH OIL 32 Medical ORAL) Branch cilostazol Yes 100mg Take 100 Un sukhwinder (PLETAL) 9-20 mg by ity of 100 mg 15:47: mouth. [address] nebivolol Yes [id number] 10mg Take 10 mg Univers (BYSTOLIC) 9-20 by mouth ity o f 10 mg 15:47: daily. [address] aspirin 81 Yes [id number] 81mg Take 81 mg Univers mg chewable 9-20 by mouth ity of tablet 15:47: daily. [address] cetirizine Yes 10mg Take 10 mg U nivers (ZYRTEC) 10 9-20 by mouth ity of mg tablet 15:47: daily. [address] cholecalcif Yes 1000U Take 1,000 Univers isabella, 9-20 Units by ity of vitamin D3, 15:47: mouth [place] (VITAMIN 32 daily. Medical D3) 1,000 Branch unit tablet vitamin Yes 1000ug Take 1,000 Un sukhwinder B-12 9-20 mcg by ity of (VITAMIN 15:47: mouth [place] B-12) 1,000 32 daily. Medica l mcg tablet Branch DOCOSAHEXAN Yes 1200mg Take 1,200 Univers OIC 9-20 mg by ity of ACID/EPA 15:47: mouth. [place] (FISH OIL 32 Medical ORAL) Branch cilostazol Yes 100mg Take 100 Un sukhwinder (PLETAL) 9-20 mg by ity of 100 mg 15:47: mouth. [place] tablet 32 Medical Branch buPROPion Yes 150mg Take 1 Tab U nivers XL 6-24 by mouth ity of (WELLBUTRIN 00:00: [place]. [place] XL) 150 mg 00 Medical 24 hr Branch tablet losartan Yes [id number] 100mg Take 1 Tab Univers (COZAAR) 6-24 by mouth ity of 100 mg 00:00: daily. [place] tablet 00 Medical Branch buPROPion Yes 150mg Take 1 Tab U nivers XL 6-24 by mouth ity of (WELLBUTRIN 00:00: [place]. [place] XL) 150 mg 00 Medical 24 hr Branch tablet losartan Yes [id number] 100mg Take 1 Tab Univers (COZAAR) 6-24 by mouth ity of 100 mg 00:00: daily. [place] tablet 00 Medical Branch blood sugar Yes 3 (three) U nivers diagnostic 5-31 times ity of (ASCENSIA 00:00: daily. [place] MICROFILL) 00 Medical strip Branch blood sugar Yes 3 (three) U nivers diagnostic 5-31 times ity of (ASCENSIA 00:00: daily. [place] MICROFILL) 00 Medical strip Branch Crestor Crestor Yes Na Mccracekn TAKE [address] [facility] [facility] TABLET BY [facility]TH ONCE [facility] Immunizations Ordered Filled Immunization Date Status Comments [facility] e Immunization Name Name Jackeline Viveros 2019-05-[address] [facility] Outpatient Clinics Vital Signs Vital Name Observation Time Observation Value Comments Source HEIGHT 2020-05-29 05:42:00 180.3 cm WEIGHT 2020-05-29 05:42:00 115.713 kg HEIGHT 2020-05-28 13:26:00 180.3 cm WEIGHT 2020-05-28 13:26:00 117.028 kg HEIGHT 2020-05-29 05:42:00 180.3 cm WEIGHT 2020-05-29 05:42:00 115.713 kg HEIGHT 2020-05-28 13:26:00 180.3 cm WEIGHT 2020-05-28 13:26:00 117.028 kg HEIGHT 2020-05-28 10:03:00 180.3 cm WEIGHT 2020-05-28 10:03:00 117.028 kg HEIGHT 2020-05-28 10:03:00 180.3 cm WEIGHT 2020-05-28 10:03:00 117.028 kg HEIGHT 2020-05-21 00:00:00 180.3 cm WEIGHT 2020-05-21 00:00:00 117.028 kg HEIGHT 2020-05-21 00:00:00 180.3 cm WEIGHT 2020-05-21 00:00:00 117.028 kg Procedures Procedure Date / Time Performed Performing Clinician [facility] e CT ANGIOGRAM 2019-05-04 17:40:[address] [facility] ABDOMEN/PELVIS Medical Branch NOTICE OF PRIVACY 2019-05-04 16:43:10 Doctor Unassigned, No Univ [facility] PRACTICES Name Medical Branch CONSENT/REFUSAL FOR 2019-05-04 16:42:42 Doctor Unassigned, No [facility] DIAGNOSIS AND [facility] Medical Branch TREATMENT ASSIGNMENT OF BENEFITS 2019-05-04 16:42:23 Doctor Unassigned, No [facility] Medical Branch POCT CREATININE 2019-05-04 16:31:00 [facility] Encounters Start End Encounter Admission Attending Care Care Encounter Source Date/Time Date/Time Type Type Clinicians Facility Department ID 2021-09-09 Outpatient Mccracken, Na [facility] [id number] [facility] 14:29:36 [id number] [facility] 2021-09-09 Outpatient Mccracken Na STLMLC [facility] [id number] [facility] 14:08:03 [id number] [facility] 2021-09-09 Outpatient Kaykay Na [facility] [id number] 12:45:46 [id number] [facility] 2021-09-09 Outpatient Mccracken, Na STLMLC [facility] [id number] 12:44:17 [id number] [facility] 2021-09-09 Outpatient Mccracken, Na STLMLC [facility] [id number] 12:16:29 [id number] [facility] 2021-09-09 Outpatient Mccracken, Na STLMLC [facility] [id number] 11:49:19 [id number] [facility] 2021-09-09 Outpatient Mccracken, Na STLMLC [facility] [id number] 11:26:15 [id number] [facility] 2021-09-09 Outpatient Mccracken, Na STLMLC [facility] [id number] [facility] 11:24:21 [id number] [facility] 2021-09-09 Outpatient Mccracken, Na STLMLC [facility] [id number] 11:18:03 [id number] [facility] 2021-09-09 Outpatient Mccracken, Na STLMLC [facility] [id number] 11:16:28 [id number] [facility] 2021-05-20 Inpatient [facility] Surgery [id number] [facility] 09:06:21 [place] 2021-08-17 2021-08-17 ambulatory [facility] [id number] [facility] 2021-08-17 2021-08-17 ambulatory [facility] [id number] [facility] 2021-06-12 2021-06-12 Outpatient [facility] [id number] [facility] 2021-06-10 2021-06-10 Outpatient [facility]ML[facility] [id number] [facility] 2021-06-02 2021-06-02 Outpatient [facility]ML[facility] [id number] [facility] 2021-05-21 2021-05-21 Outpatient [facility]ML[facility] [id number] [facility] 2021-05-15 2021-05-15 Outpatient [facility] [id number] [facility] 2021-02-13 2021-02-13 Outpatient [facility] [id number] [facility] 2020-12-11 2020-12-11 Outpatient [facility] [id number] [facility] 2020-11-18 2020-11-18 Outpatient [facility] [id number] [facility] 2020-11-07 2020-11-07 Outpatient [facility] [id number] [facility] 2020-10-31 2020-10-31 Outpatient [facility]MLC [facility] [id number] [facility] 2020-08-28 2020-08-28 Outpatient [facility] [id number] [facility] 2020-08-23 2020-08-23 Outpatient Charlie LE [facility] [id number] Univers 09:40:00 09:40:00 MILTON [facility] 2020-08-23 2020-08-23 Outpatient [facility] [id number] Univers 09:40:00 09:40:00 [id number] [facility] 2020-08-14 2020-08-14 Outpatient [facility] [id number] [facility] 2020-08-12 2020-08-12 Outpatient [facility] [id number] [facility] 2020-08-09 2020-08-09 Outpatient R [facility] [id number] Univers 09:20:00 09:20:00 [id number] [facility] 2020-08-09 2020-08-09 Outpatient R MARVIN, [facility] [id number] Univers 09:20:00 09:20:00 DEANA [facility] 2020-08-09 2020-08-09 Laboratory Lab, [facility] Fam Pob I [facility] [id number]. [id number] Univers 08:35:24 08:55:24 Only Marvin [facility] [id number] ity of [place] [id number] Luis as Professio [phone] Oh dical [address] 2020-08-09 2020-08-09 Laboratory Lab, [facility] [id number] 08:35:24 08:55:24 Only Fam Pob I Health [id number] [place] [id number] Professio [phone] [place] [address] [address] 2020-08-06 2020-08-06 Outpatient [facility] [id number] Univers 11:20:00 11:20:00 [id number] [facility] 2020-07-23 2020-07-23 Outpatient [facility] [id number] [facility] 2020-07-23 2020-07-23 Outpatient BRONWYN AGUIRRE [facility] [id number] [place] 00:00:00 00:00:[address] 2020-07-02 2020-07-02 Outpatient [facility] [id number] [facility] 2020-06-21 2020-06-21 Outpatient [facility] [id number] [facility] 2020-06-18 2020-06-18 Outpatient MARY BETH HUDSON [facility] [id number] [facility] 00:00:00 00:00:00 ARTHUR 2020-06-12 2020-06-12 Outpatient [facility] [id number] [facility] 2020-05-28 2020-05-28 Outpatient [facility] [id number] [facility] 00:00:00 00:00:00 2020-05-28 2020-05-28 Outpatient EL [facility] [id number] [facility] 00:00:00 00:00:00 2020-05-22 2020-05-22 Outpatient [facility] [id number] [facility] 2020-05-22 2020-05-22 Outpatient [facility] [id number] [facility] 2020-05-21 2020-05-21 Outpatient EL SLE [facility] [id number] [facility] 00:00:00 00:00:00 2020-05-20 2020-05-20 Outpatient [facility] [id number] [facility] 2020-05-14 2020-05-14 Outpatient MARY BETH HUDSON [facility] [id number] [facility] 00:00:00 00:00:00 ARTHUR 2020-05-12 2020-05-12 Outpatient [facility] [id number] [facility] 2020-05-09 2020-05-09 Outpatient [facility] [id number] [facility] 2020-05-08 2020-05-08 Outpatient [facility] [id number] [facility] 2020-04-22 2020-04-22 Outpatient BRONWYN AGUIRRE [facility] [id number] [place] 00:00:00 00:00:[id number] 2020-03-13 2020-03-13 Outpatient BRONWYN AGUIRRE [facility] [id number] [place] 00:00:00 00:00:[address] 2020-03-13 2020-03-13 Outpatient BRONWYN AGUIRRE [facility] [id number] [place] 00:00:00 00:00:[address] 2020-03-13 2020-03-13 Outpatient BRONWYN AGUIRRE [facility] [id number] [place] 00:00:00 00:00:[address] 2020-03-13 2020-03-13 Outpatient BRONWYN AGUIRRE [facility] [id number] [place] 00:00:00 00:00:[address] 2020-02-25 2020-02-25 [facility] [id number] [facility] 10:06:00 10:06:00 t Virtual Web [facility] Medicine Outpati ent Clinics 2020-02-08 2020-02-08 Outpatient BRONWYN AGUIRRE [facility] [id number] [place] 00:00:00 00:00:[address] 2020-01-31 2020-01-31 [facility] [id number] [facility] 16:12:00 16:12:00 [facility] l Medicine Outpati ent Clinics 2020-01-24 2020-01-24 [facility] [id number] 14:27:00 14:27:00 t Virtual Web [facility] Medicine l Medicine Outpati ent Clinics 2020-01-14 2020-01-14 [facility] [id number] 09:43:00 09:43:00 t Virtual Web [facility] l Medicine Outpati ent Clinics 2019-12-06 2019-12-06 [facility] [id number] [facility] 10:24:00 10:24:00 t Virtual Web [facility] Medicine Outpati ent Clinics 2019-12-04 2019-12-04 Outpatient BRONWYN AGUIRRE [facility] [id number] [place] 00:00:00 00:00:[address] 2019-11-26 2019-11-26 [facility] [id number] [facility] 11:11:00 11:11:00 t [place] [employer] s - [employer] [facility] Medicine Outpati ent Clinics 2019-11-16 2019-11-16 [facility] [id number] 08:40:00 08:40:00 t [place] [employer] s - [employer] [facility] Medicine Outpati ent Clinics 2019-10-18 2019-10-18 [facility] [id number] 14:21:00 14:21:00 t [place] [employer] s - [employer] [facility] Medicine Outpati ent Clinics 2019-08-16 2019-08-16 [facility] [id number] 08:00:00 08:00:00 [place] [employer] s - [employer] [facility] Medicine Outpati ent Clinics 2019-06-14 2019-06-14 Outpatient ATTAR, [facility] [id number] [place] 00:00:00 00:00:00 [facility] Marizolo hebert 2019-05-28 2019-05-28 [facility] [id number] 16:12:00 16:12:00 t [place] [employer] s - [employer] [facility] Medicine Outpati ent Clinics 2019-05-10 2019-05-10 [facility] [id number] 15:12:00 15:12:00 [place] [employer] s - Drive [facility] Medicine Outpati ent Clinics 2019-05-10 2019-05-10 [facility] [id number] 08:20:00 08:20:00 [place] [employer] s - [employer] [facility] Outpat[facility] ent Clinics 2019-05-04 2019-05-04 [facility] [id number] Univers 11:30:00 23:59:00 Encounter Troy Toscano [id number] Julius [id number] [facility] [id number] [facility] 801 Branch 2019-05-04 2019-05-04 [facility] Attar, [facility] [id number] 11:30:00 23:59:00 Encounter Troy Toscano [id number] [place] [id number] [place] [id number] 2019-04-26 2019-04-26 [facility] [id number] 10:03:00 10:03:[address] Luke s - Drive [facility] l Medicine Outpati ent Clinics 2019-02-05 2019-02-05 [facility] [id number] 13:55:00 13:55:[address] Luke s - Drive [facility] l Medicine Outpati ent Clinics 2019-02-05 2019-02-05 [facility] [id number] 09:40:00 09:40:[address] Luke s - Drive [facility] l Medicine Outpati ent Clinics 2018-12-15 2018-12-15 [facility] [id number] 14:33:00 14:33:[address] Luke s - Drive [facility] Medicine l Medicine Outpati ent Clinics 2018-12-06 2018-12-06 [facility] [id number] 08:45:00 08:45:[address] Luke s - Drive [facility] l Medicine Outpati ent Clinics 2018-12-06 2018-12-06 [facility] [id number] 08:23:00 08:23:[address] Luke s - Drive [facility] l Medicine Outpati ent Clinics 2018-11-22 2018-11-22 [facility] [id number] 09:23:00 09:23:[address] Luke s - Drive [facility] Medicine l Medicine Outpati ent Clinics 2018-11-21 2018-11-21 [facility] [id number] 10:16:00 10:16:[address] Luke s - Drive [facility] Medicine l Medicine Outpati ent Clinics 2018-11-10 2018-11-10 [facility] [id number] 08:15:00 08:15:[address] Luke s - Drive [facility] l Medicine Outpati ent Clinics 2018-09-21 2018-09-21 [facility] [id number] 15:00:00 15:00:[address] Luke s - Drive [facility] Medicine l Medicine Outpati ent Clinics 2018-08-29 2018-08-29 [facility] [id number] 15:57:00 15:57:[address] Luke s - Drive [facility] l Medicine Outpati ent Clinics 2018-08-11 2018-08-11 [facility] [id number] 08:30:00 08:30:00 t [place] [employer] Luke s - Drive [facility] Medicine l Medicine Outpati ent Clinics 2018-05-08 2018-05-08 [facility] [id number] [address] 11:56:00 11:56:[address] [place] - Drive [facility] Medicine l Medicine Outpati ent Clinics 2018-05-04 2018-05-04 [facility] [id number] 10:17:00 10:17:[address] [place] - Drive [facility] Medicine l Medicine Outpati ent Clinics 2018-04-28 2018-04-28 [facility] [id number] 09:45:00 09:45:00 t [address] [place] - Drive [facility] Medicine l Medicine Outpati ent Clinics 2018-03-15 2018-03-15 [facility] [id number] 09:11:00 09:11:[address] [place] - Drive [facility] Medicine l Medicine Outpati ent Clinics 2018-02-14 2018-02-14 [facility] [id number] 08:46:00 08:46:[address] [place] - Drive [facility] Medicine l Medicine Outpati ent Clinics 2018-01-27 2018-01-27 [facility] [id number] 08:15:00 08:15:[address] [place] - Drive [facility] Medicine Outpati ent Clinics Results Test Description Test Time Test Comments Results Result Sourc e Comments TISSUE EXAM 2020-06-09 Surgical Pathology 13:16:00 Report Case: [id number] Authorizing Provider: Arthur Hudson, Collected: 05/29/2020 10:31 AM Ordering Location: [facility] Received: 05/29/2020 12:48 PM PERIOPERATIVE SERVICES Pathologist: Benito Winston MD Specimen: Plaque, RIGHT CAROTID ARTERY PLAQUE ARTERY, RIGHT CAROTID, ENDARTERECTOMY:CALCIFIC ATHEROSCLEROTIC PLAQUE Signing Pathologist Direct Phone Line: [phone] ly signed by Beniot Winston MD on 06/09/2020 at 1:15 [id number]; [id number] diagnosis: stenosis of carotid artery, unspecified lateralityPlaqueA. [...] in its entirety in A1 for decal. JG/plPerformed SHORT-LATENCY 2020-06-06 IO SPE, ALL LIMBS 15:24:00 [facility] 1955 Sex: M INTRAOPERAT VANESSA MONITORING REPORT Patient Name: Alexander Walker [facility] Surgery Date: 05/29/20 Monitoring began at [...] wrist and PTN stimulation at ankles. Post-induction, pre-incision baseline recording responses to median nerve stimulation were clear and reproducible with parameter values within normal limits bilaterally. At closing, free-running EEG remained symmetrical and at baseline frequencies with no focal changes noted to occur throughout the operative procedure. MD Mercedes -GLUCOSE METER 2020-05-30 11:06:00 Test Item Value Reference Range Interpretation Comme [facility] POC-GLUCOSE METER (BEAKER) 267 mg/dL 70-110 H : TESTED AT [facility] [address] [facility] (test code = 1538) DAN[place], [id number]: Cover Inspector/Techni jaden ID = [id number] for JORGE ACE RAD, CHEST, 1 VIEW, NON [id number] 10:20:00Reason for exam:- >dyspneaShould this be performed at the bedside?->Yes [facility] : 1955 Sex: MFINAL REPORT CLINICAL HISTORY: dyspnea TECHNIQUE: 1 view of the chest. COMPARISON: None IMPRESSION: There is left lower lung atelectasis. The right lung appears well-aerated. There is no significant pleural fluid. The cardiomediastinal silhouette is magnified by technique with sternotomy wires. Signed: Alexis Rosenbaumort Verified Date/Time: 05/30/2020 10:20:48 Reading Location: [facility] Radiology Reading Room HEMOGLOBIN [id number] 10:08:00 Test Item Value Reference Range Interpretation Comments HEMOGLOBIN A1C (BEAKER) (test code = 7.4 % 4.3-6.1 H 368) Cover Inspector ID - ADMINPOCT-GLUCOSE [id number] 08:03:00 Test Item Value Reference Range Interpretation Comments POC-GLUCOSE METER 155 mg/dL 70-110 H : TESTED A T [facility] [address] (BEAKER) (test code = [place], 1538) [address]: Cover Inspector/Techni jaden ID = [id number] for YURIDIA APODACA BENEDICTESEQUIEL CBC W/PLT COUNT & AUTO [id number] 07:17:00 Test Item Value Reference Range Interpretation [...] 0-1 PERCENT (BEAKER) (test code = 2801) TSH/FREE T4 IF [id number] 07:10:00 Test Item Value Reference Range Interpretation Comments THYROID STIMULATING HORMONE 0.888 uIU/mL 0.350-4.940 (BEAKER) (test code = 772) Cover Inspector ID - EDASIBASIC METABOLIC [id number] 06:50:00 Test Item Value Reference Range Interpretation [...] S NOT APPLICABLE FOR DIALYSIS PATIEN TS. Cover Inspector ID - GIO [id number] 06:50:00 Test Item Value Reference Range Interpretation Comments MAGNESIUM (BEAKER) (test code = 1.4 mg/dL 1.6-2.6 L 627) Cover Inspector ID - GIO [id number] 06:50:00 Test Item Value Reference Range Interpretation Comments PHOSPHORUS (BEAKER) (test code = 3.2 mg/dL 2.3-4.7 604) Cover Inspector ID - PISHLOMO LCALCIUM, [id number] 06:29:00 Test Item Value Reference Range Interpretation Comments CALCIUM IONIZED (BEAKER) (test 1.14 mmol/L 1.12-1.27 code = 698) PH, BLOOD (BEAKER) (test code = 7.32 1810) POCT-GLUCOSE [id number] 22:18:00 Test Item Value Reference Range Interpretation Comments POC-GLUCOSE METER 199 mg/dL 70-110 H : TESTED A T [facility] [address] (BEAKER) (test code = [place], 1538) [address]: Cover Inspector/Techni jaden ID = [id number] for DECLAN HUMPHRIES SE POCT-GLUCOSE [id number] 16:56:00 Test Item Value Reference Range Interpretation Comments POC-GLUCOSE METER 196 mg/dL 70-110 H : TESTED A T [facility] [address] (BEAKER) (test code = CAROLE Guerra [facility], 1538) [address]: Cover Inspector/Techni jaden ID = [id number] for SALLY LI PLATELET AGGREGATION: FUNCTION [id number] 14:58:00 Test Item Value Reference Range Interpretation Comments [id number] Michael Teran MD (BEAKER) (test code = (electronic 2622) signature) PLATELET COUNT AGG 210 K/CU MM 150-450 (BEAKER) (test code = 2656) ADP (BEAKER) (test code 38 % 62-100 L = 4654) PLATELET RICH 278 k/cu mm 200-300 PLASMA(BEAKER) (test code = 2134) PLATELET FUNCTION SCREEN Decreased aggregation INTERPRETATION (BEAKER) with ADP which (test code = 3895) indicates platelet dysfunction that may be due to medication effect, uremia, or other platelet function disorders. Clinical correlation is required. Platelet Function Screen results may be falsely low with platelet counts<75,000/cu mm.Cover Inspector ID- [id number] METABOLIC [id number] 13:00:00 Test Item Value Reference Range Interpretation [...] S NOT APPLICABLE FOR DIALYSIS PATIEN TS. Cover Inspector ID - AJAY MPOCT-GLUCOSE [id number] 12:42:00 Test Item Value Reference Range Interpretation Comments POC-GLUCOSE METER 199 mg/dL 70-110 H : TESTED A T [facility] [address] (BEAKER) (test code = [place], 1538) [address]: Cover Inspector/Techni jaden ID = [id number] for CLARISSE TAPIA CBC (HEMOGRAM ONLY)2020-05-29 12:38:00 Test Item Value Reference [...] WBC 0-0 (BEAKER) (test code = 413) POTASSIUM-STAT [id number] 10:20:00 Test Item Value Reference Range Interpretation Comments POTASSIUM (BEAKER) (test code = 4.0 meq/L 3.6-5.5 379) BLOOD GAS, [id number] 10:20:00 Test Item Value Reference Range Interpretation [...] (BEAKER) (test code = 1819) 100.0 GLUCOSE-STAT [id number] 10:20:00 Test Item Value Reference Range Interpretation Comments GLUCOSE RANDOM (BEAKER) (test code 153 mg/dL 70-110 H = 652) HGB/HCT (H&H) - STAT [id number] 10:20:00 Test Item Value Reference Range Interpretation Comments HEMOGLOBIN (BEAKER) (test code = 12.6 GM/DL 13.0-16.8 L 410) HEMATOCRIT (BEAKER) (test code = 37.0 % 40.0-50.0 L 411) CALCIUM, [id number] 10:20:00 Test Item Value Reference Range Interpretation Comments CALCIUM IONIZED (BEAKER) (test 1.04 mmol/L 1.12-1.27 L code = 698) PH, BLOOD (BEAKER) (test code = 7.43 1810) SODIUM NA-STAT [id number] 10:20:00 Test Item Value Reference Range Interpretation Comments SODIUM (BEAKER) (test code = 381) 137 meq/L 136-145 POCT-GLUCOSE [id number] 06:03:00 Test Item Value Reference Range Interpretation Comments POC-GLUCOSE METER 210 mg/dL 70-110 H : TESTED A T [facility] [address] (BEAKER) (test code [facility], = 1538) [address]: Cover Inspector/Techni jaden ID = [id number] for JORD AN, LACRYSTAL SARS-COV2/RT-PCR ([facility])2020-05-28 15:06:00 Test Item Value Reference Range Interpretation Comments SARS-COV2/RT-PCR (test Negative Not Detected, Negative, code = 7007893) See external report for linked test SARS-COV-[address] [facility] YORDY (test code = 1393420) Negative result for this test determines that [...] 564(g) of the Act.Fact Sheet for Healthcare Providers:https://www.Valnevaidel.com/sites/default/files/product/documents/Fact_Shee c_EQ_Zcszmfzqi_Fmpq_LWFB-FgN-5.pdfFact Sheet for Healthcare Patients:https://www.[employer].com/sites/default/files/product/ documents/Ojsa_Izwne_Krccybmw_Pxkp_ZNTF-SbY-0.pdfPerforming Laboratory:[facility], [place] [address]OQDT-KRZ0/RT-PCR ([facility])2020-05-21 16:46:00 Test Item Value Reference Range Interpretation Comments SARS-COV2/RT-PCR (test Negative Not Detected, Negative, code = 3289464) See external report for linked test SARS-COV-[address] [facility] YORDY (test code = 4308991) Negative result for this test determines that [...] 564(g) of the Act.Fact Sheet for Healthcare Providers:https://www.Valneva[employer].com/sites/default/files/product/documents/Fact_Shee i_TW_Lezumxjcx_Lbih_YTOZ-FlY-4.pdfFact Sheet for Healthcare Patients:https://www.[employer].com/sites/default/files/product/ documents/Iozt_Oktlq_Sxgiijbc_Oxoo_XBVW-HiQ-8.pdfPerforming Laboratory:[place] [address], [place] [address]WUCEBHFR AGGREGATION: FUNCTION [id number] 14:18:00 Test Item Value Reference Range Interpretation Comments [id number] Michael Teran MD (BEAKER) (test code = [...] may be falsely low with platelet counts<75,000/cu mm.Cover Inspector ID- [id number] METABOLIC [id number] 12:01:00 Test Item Value Reference Range Interpretation [...] S NOT APPLICABLE FOR DIALYSIS PATIEN TS. Cover Inspector ID - MAURICIO CPROTHROMBIN [id number] 11:28:00 Test Item Value Reference Range Interpretation [...] mechanical heart valves.CBC W/PLT COUNT & AUTO [id number] 11:12:00 Test Item Value Reference Range Interpretation [...] 0-1 PERCENT (BEAKER) (test code = 2801) POCT [id number] 19:05:00 Test Item Value Reference Range Interpretation Comments POCT Creatinine (test code = 1.4 mg/dL 0.6-1.3 H [id number]) Lab Interpretation (test code = Abnormal 39244-1) [facility]/[id number] 18:41:44 1.?No acute findings are seen in the abdomen and pelvis.2.?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 3.?Atherosclerotic disease with near complete occlusion of the rightsuperficial femoral artery. 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 A 0.5 cm pseudoaneurysm is suspected at this site. * * * * * * * *ORIGINAL REPORT * * * * * * * *EXAM: CT ABDOMEN ANGIOGRAPHY OF THE AND PELVIS WITH AND WITHOUT CONTRAST HISTORY: 63-year-old male with suspected peripheral vascular disease. COMPARISON: None. DOSE: Total exam DLP 1504 mGy-cm TECHNIQUE AND FINDINGS: Contiguous axial imaging was performed after theuncomplicated administration of 120 cc of intravenous Omnipaque contrast.Coronal and sagittal reconstructions were obtained. FINDINGS:LOWER THORAX: The lungs bases are clear. No pleural or pericardialeffusion. Sternotomy wires. LIVER: No focal hepatic lesions. Patent hepatic and portal veins. Nobiliary ductal dilatation. GALLBLADDER AND BILIARY TREE: No extrahepatic biliary ductal dilation.?Nohyperdense stones. SPLEEN: No splenomegaly or focal lesions. PANCREAS: No ductal dilation or focal lesions. ADRENAL GLANDS: No adrenal nodules. KIDNEYS: No hydronephrosis, stones, or solid lesions. PERITONEUM AND RETROPERITONEUM: No free air or free fluid. LYMPH NODES: No lymphadenopathy is seen. GI TRACT: No dilation or wall thickening. Sigmoid diverticulosis with noevidence of diverticulitis. PELVIS/BLADDER: Theurinary bladder and prostate appear normal. VESSELS: The abdominal aorta at the diaphragmatic hiatus measures 2.4 cm (17:22).Scattered atherosclerotic calcifications are seen. The celiac artery is patent. Conventional branching anatomy is seen. Nearcomplete occlusion of the SMA at the origin (17:34). A patent JASON isvisualized (17:49). A single patent left renal artery is seen. A singlerenal accessory artery is are seen (17:37). The infrarenal abdominal aorta measures 1.7 cm in diameter (17:45) with noevidence of aneurysm formation or a mural thrombus. Atheroscleroticcalcific lesions are seen involving bilateral common iliac, external andinternal iliac arteries. Near complete occlusion of the right superficial femoral artery, at theedge of the ftmqv-ky-zsyz (17:110). Patent right deep femoral artery. There is early opacification of the left femoral and external iliac veinlikely due to a arteriovenous fistula best seen on 17:93 and 13:26. A 0.5cm pseudoaneurysm is suspected at the site. The vi sualized left superficialand deep femoral arteries are patent. BONES AND SOFT TISSUES: No suspiciouslytic or sclerotic bone lesions. 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 There is nonspecific subcutaneous fat stranding seen in theleft lower quadrantof the abdomen best seen on 21:91. [facility], Radiant Results Inft User - 05/04/2019 1:41 PM CDT* * * * * * * * ORIGINAL REPORT * * * * * * * *EXAM: CT ABDOMEN ANGIOGRAPHY OF THE AND PELVIS WITH AND WITHOUT CONTRASTHISTORY: 63-year-old male with suspected peripheral vascular disease.COMPARISON: None.DOSE:Total exam DLP 1504 mGy-cmTECHNIQUE AND FINDINGS: Contiguous axial imaging was performed after theuncomplicated administration of 120 cc of intravenous Omnipaque contrast.Coronal and sagittal reconstructions were obtained.FINDINGS:LOWER THORAX: The lungs bases are clear. No pleural or pericardialeffusion. Sternotomy wires.LIVER: No focal hepatic lesions. Patent hepatic and portal veins. Nobiliary ductal dilatation.GALLBLADDER AND BILIARY TREE: No extrahepatic biliary ductal dilation. Nohyperdense stones.SPLEEN: No splenomegaly or focal lesions.PANCREAS: No ductal dilation or focal lesions.ADRENAL GLANDS: No adrenal nodules.KIDNEYS: No hydronephrosis, stones, or solid lesions.PERITONEUM AND RETROPERITONEUM: No free air or free fluid.LYMPH NODES: No lymphadenopathy is seen.GI TRACT: No dilation orwall thickening. Sigmoid diverticulosis with noevidence of diverticulitis.PELVIS/BLADDER: The urinary bladder and prostate appear normal.VESSELS: The abdominal aorta at the diaphragmatic hiatus measures 2.4 cm (17:22).Scattered atherosclerotic calcifications are seen. The celiac artery is patent. Conventional branching anatomy is seen. Nearcomplete occlusion of the SMA at the origin (17:34). A patentIMA isvisualized (17:49). A single patent left renal artery is seen. A singlerenal accessory artery is are seen (17:37).The infrarenal abdominal aorta measures 1.7 cm in diameter (17:45) with noevidence of aneurysm formation or a mural thrombus. Atheroscleroticcalcific lesions are seen involving bilateral common iliac, external andinternal iliac arteries. Near complete occlusion of the right superficial femoral artery, at theedge of the awkbn-tz-klkl (17:110). Patent right deep femoral artery. Thereis early opacification of the left femoral and external iliac veinlikely due to a arteriovenous fistula best seen on 17:93 and 13:26. A 0.5cm pseudoaneurysm is suspected at the site. The visualized left superficialand deep femoral arteries are patent.BONES AND SOFT TISSUES: No suspicious lytic or sclerotic bone lesions. 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 There is nonspecific subcutaneous fat stranding seen in theleft lower quadrant of the abdomen best seen on 21:91.IMPRESSION1. No acute findings are seen in the abdomen and pelvis.2. 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 3. Atherosclerotic disease with near complete occlusion of the rightsuperficial femoral artery. The distal extent of this is not in qdflwlbm-ye-gxkc.4. 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 A 0.5 cm pseudoaneurysm is suspected at this site.[facility]
[2021-10-07] MEDS ORDERED: ONDANSETRON 4 MG/2 ML VIAL ONE (08:56)
[2021-10-07] MEDS ORDERED: NA CHLORIDE 0.9% 1,000 ML ONE (08:57)
[2021-10-07 09:24] LABS: Absolute Lymphocytes (CBC) 0.7 K/uL (0.7-4.9); Hematocrit 45.4 % (39.6-49.0); Lymphocytes % 10.1 % (15.3-44.8); MPV 9.1 fL (7.6-11.3); RBC Red Blood Cell Count 5.23 M/uL (4.33-5.43)
[2021-10-07 09:39] LABS: Albumin 3.8 g/dL (3.4-5.0); Bilirubin Direct 0.2 mg/dL (0-0.2); Bilirubin Total 0.6 mg/dL (0.2-1.0); Potassium 4.1 mmol/L (3.5-5.1); Protein, Total 7.2 g/dL (6.4-8.2)
[2021-10-07 10:12] LABS: Blood Morphology Comment NOT SEEN (NOT SEEN); Platelet Estimate ADEQ; White Blood Cell Scan OK (OK)
--- NOTE | 2021-10-07 12:29 | ER ---
Nurse's Notes [facility] Name: Alexander Walker Age: 65 yrs Sex: Male : 1955 Arrival Date: 10/07/2021 Time: 08:12 Bed 20 Private MD: Sophia Mccracken Diagnosis: Diarrhea, unspecified Presentation: 10/07 08:17 Chief complaint: Patient states: patient states he started experiencing nausea, ap3 vomiting and diarrhea yesterday morning. Patient states that it has yet to resolve, and is feeling weak, unable to hold fluids or food down. Coronavirus screen: At this time, the client does not indicate any symptoms associated with coronavirus-19. Ebola Screen: No symptoms or risks identified at this time. Initial Sepsis Screen: Does the patient meet any 2 criteria? No. Patient's initial sepsis screen is negative. Does the patient have a suspected source of infection? No. Patient's initial sepsis screen is negative. Risk Assessment: Do you want to hurt yourself or someone else? Patient reports no desire to harm self or others. Onset of symptoms was October 06, 2021. 08:17 Method Of Arrival: Ambulatory ap3 08:17 Acuity: RENY 3 ap3 Triage Assessment: 08:24 General: Appears in no apparent distress. Behavior is calm, cooperative. General: ap3 Reports fatigue for. Pain: Denies pain. Neuro: Level of Consciousness is awake, alert, obeys commands, Oriented to person, place, time, situation, Appropriate for age. Cardiovascular: Patient's skin is warm and dry. Respiratory: Airway is patent Respiratory effort is even, unlabored. GI: Reports diarrhea, intolerance of fluids, intolerance of food, nausea, vomiting. Historical: - Allergies: 08:19 Ciprofloxacin; ap3 08:19 Latex, Natural Rubber; ap3 - Home Meds: 08:19 aspirin 81 mg Oral TbEC 1 tab once daily [Active]; Bystolic 20 mg Oral tab 1 tab once ap3 daily [Active]; clopidogrel 75 mg Oral tab 1 tab once daily [Active]; Humalog 100 unit/mL Sub-Q soln 13 unit three times a day [Active]; Lantus 100 unit/mL Sub-Q soln 35 unit daily [Active]; losartan 100 mg Oral tab 1 tab once daily [Active]; rosuvastatin 10 mg Oral tab 1 tab once daily [Active]; Trulicity 1.5 mg/0.5 mL subcutaneous pnij 0.5 mL once wkly [Active]; Synjardy oral [Active]; pantoprazole 40 mg oral TbEC 1 tab once daily [Active]; - PMHx: 08:19 Anxiety; Diabetes - IDDM; GERD; Hyperlipidemia; Hypertension; neuropathy; ap3 - PSHx: 08:19 3X bypass; right leg stent; right leg bypass; MARCIE rotator cuff sx; ap3 - Immunization history:: Client reports receiving the 2nd dose of the Covid vaccine, and booster Last tetanus immunization: up to date Pneumococcal vaccine is up to date, Flu vaccine is up to date. - Social history:: Smoking status: Patient denies any tobacco usage or history of. Patient uses alcohol, on a daily basis. approx 2 beers a night. - Family history:: not pertinent. Screenin:25 Abuse screen: Denies threats or abuse. Nutritional screening: No deficits noted. ap3 Tuberculosis screening: No symptoms or risk factors identified. 08:25 Fall Risk None identified. No fall in past 12 months (0 pts). ap3 Assessment: 08:30 General: SEE TRIAGE NOTE. bp 10:36 Reassessment: No changes from previously documented assessment. Patient and/or family bp updated on plan of care and expected duration. Pain level reassessed. GI: Abdomen is non-distended, Abd is soft X 4 quads. 12:00 Reassessment: PROVIDER AT B/S FOR RE-EVAL Patient states feeling better. bp 12:41 Reassessment: PT D/C HOME AMBULATORY WITH FAMILY, DX WITH DIARRHEA. bp Vital Signs: 08:17 BP 120 / 66; Pulse 78; Resp 16; Temp 97.9; Pulse Ox 100% ; Weight 109.32 kg; Height 5 ap3 ft. 11 in. (180.34 cm); 09:12 BP 131 / 62; Pulse 72; Resp 16; Pulse Ox 96% ; bp 10:13 BP 135 / 59; Pulse 69; Resp 16; Pulse Ox 95% ; bp 12:00 BP 108 / 57; Pulse 67; Resp 16; Pulse Ox 100% ; bp 08:17 Body Mass Index 33.61 (109.32 kg, 180.34 cm) ap3 ED Course: 08:12 Patient arrived in ED. as 08:12 Sophia Mccracken MD is Private Physician. as 08:19 Triage completed. ap3 08:23 Magalys Villalpando MD is Attending Physician. ma2 08:25 Arm band placed on left wrist. ap3 08:39 Karthikeyan Landis, RN is Primary Nurse. bp 09:10 Inserted saline lock: 20 gauge in right antecubital area, using aseptic technique. bp Blood collected. 09:12 Patient has correct armband on for positive identification. Bed in low position. Call bp light in reach. Side rails up X2. Adult w/ patient. 10:38 Basic Metabolic Panel Sent. bp 10:38 SARS-COV-2 RT PCR (Document "Date of Onset" if Symptomatic) Sent. bp 12:41 No provider procedures requiring assistance completed. IV discontinued, intact, bp bleeding controlled, No redness/swelling at site. Pressure dressing applied. Administered Medications: 09:10 Drug: NS 0.9% 1000 ml Route: IV; Rate: 1 bolus; Site: right antecubital; bp 10:38 Follow up: IV Status: Completed infusion; IV Intake: 1000ml bp 09:10 Drug: Zofran (Ondansetron) 4 mg Route: IVP; Site: right antecubital; bp 10:37 Follow up: Response: Nausea is decreased bp Intake: 10:38 IV: 1000ml; Total: 1000ml. bp Outcome: 12:28 Discharge ordered by . ma2 12:41 Discharged to home ambulatory, with family. bp 12:41 Condition: stable 12:41 Discharge instructions given to patient, family, Instructed on discharge instructions, follow up and referral plans. medication usage, Demonstrated understanding of instructions, follow-up care, medications, Prescriptions given X 2. 12:42 Patient left the ED. bp Signatures: Ramila Parks Brian, RN RN bp Magalys Villalpando MD MD ma2 Emely Slaughter RN RN ap3
--- NOTE | 2021-10-07 12:29 | EDPHYS ---
Physician Documentation [facility] Name: Alexander Walker Age: 65 yrs Sex: Male : 1955 Arrival Date: 10/07/2021 Time: 08:12 Bed 20 Private MD: Sophia Mccracken ED Physician Magalys Villalpando HPI: 10/07 09:19 This 65 yrs old Male presents to ER via Ambulatory with complaints of ma2 Vomiting/Diarrhea. 09:19 65-year-old male history of diabetes, here with nausea vomiting diarrhea for 2 days, no ma2 abdominal pain or fever, never had surgeries before.. Historical: - Allergies: 08:19 Ciprofloxacin; ap3 08:19 Latex, Natural Rubber; ap3 - Home Meds: 08:19 aspirin 81 mg Oral TbEC 1 tab once daily [Active]; Bystolic 20 mg Oral tab 1 tab once ap3 daily [Active]; clopidogrel 75 mg Oral tab 1 tab once daily [Active]; Humalog 100 unit/mL Sub-Q soln 13 unit three times a day [Active]; Lantus 100 unit/mL Sub-Q soln 35 unit daily [Active]; losartan 100 mg Oral tab 1 tab once daily [Active]; rosuvastatin 10 mg Oral tab 1 tab once daily [Active]; Trulicity 1.5 mg/0.5 mL subcutaneous pnij 0.5 mL once wkly [Active]; Synjardy oral [Active]; pantoprazole 40 mg oral TbEC 1 tab once daily [Active]; - PMHx: 08:19 Anxiety; Diabetes - IDDM; GERD; Hyperlipidemia; Hypertension; neuropathy; ap3 - PSHx: 08:19 3X bypass; right leg stent; right leg bypass; MARCIE rotator cuff sx; ap3 - Immunization history:: Client reports receiving the 2nd dose of the Covid vaccine, and booster Last tetanus immunization: up to date Pneumococcal vaccine is up to date, Flu vaccine is up to date. - Social history:: Smoking status: Patient denies any tobacco usage or history of. Patient uses alcohol, on a daily basis. approx 2 beers a night. - Family history:: not pertinent. ROS: 09:19 Constitutional: Negative for fever, chills, and weight loss. ma2 09:19 All other systems are negative. Exam: 09:19 Constitutional: This is a well developed, well nourished patient who is awake, alert, ma2 and in no acute distress. Head/Face: Normocephalic, atraumatic. Eyes: Pupils equal round and reactive to light, extra-ocular motions intact. Lids and lashes normal. Conjunctiva and sclera are non-icteric and not injected. Cornea within normal limits. Periorbital areas with no swelling, redness, or edema. ENT: Nares patent. No nasal discharge, no septal abnormalities noted. Tympanic membranes are normal and external auditory canals are clear. Oropharynx with no redness, swelling, or masses, exudates, or evidence of obstruction, uvula midline. Mucous membranes moist. Neck: Trachea midline, no thyromegaly or masses palpated, and no cervical lymphadenopathy. Supple, full range of motion without nuchal rigidity, or vertebral point tenderness. No Meningismus. Chest/axilla: Normal chest wall appearance and motion. Nontender with no deformity. No lesions are appreciated. Cardiovascular: Regular rate and rhythm with a normal S1 and S2. No gallops, murmurs, or rubs. Normal PMI, no JVD. No pulse deficits. Respiratory: Lungs have equal breath sounds bilaterally, clear to auscultation and percussion. No rales, rhonchi or wheezes noted. No increased work of breathing, no retractions or nasal flaring. Abdomen/GI: Soft, non-tender, with normal bowel sounds. No distension or tympany. No guarding or rebound. No evidence of tenderness throughout. Skin: Warm, dry with normal turgor. Normal color with no rashes, no lesions, and no evidence of cellulitis. MS/ Extremity: Pulses equal, no cyanosis. Neurovascular intact. Full, normal range of motion. Neuro: Awake and alert, GCS 15, oriented to person, place, time, and situation. Cranial nerves II-XII grossly intact. Motor strength 5/5 in all extremities. Sensory grossly intact. Cerebellar exam normal. Normal gait. Vital Signs: 08:17 BP 120 / 66; Pulse 78; Resp 16; Temp 97.9; Pulse Ox 100% ; Weight 109.32 kg; Height 5 ap3 ft. 11 in. (180.34 cm); 09:12 BP 131 / 62; Pulse 72; Resp 16; Pulse Ox 96% ; bp 10:13 BP 135 / 59; Pulse 69; Resp 16; Pulse Ox 95% ; bp 12:00 BP 108 / 57; Pulse 67; Resp 16; Pulse Ox 100% ; bp 08:17 Body Mass Index 33.61 (109.32 kg, 180.34 cm) ap3 MDM: 08:28 Patient medically screened. [facility] 09:19 Differential diagnosis: Nonspecific abd pain, gastritis, pancreatitis, viral ma2 gastroenteritis, gastroenteritis. 12:28 Data reviewed: vital signs, nurses notes. Counseling: I had a detailed discussion with [facility] the patient and/or guardian regarding: the historical points, exam findings, and any diagnostic results supporting the discharge/admit diagnosis, the presence of at least one elevated blood pressure reading (>120/80) during this emergency department visit, the need for outpatient follow up. Response to treatment: the patient's symptoms have markedly improved after treatment. 10/07 08:25 Order name: SARS-COV-2 RT PCR (Document "Date of Onset" if Symptomatic) [facility] 10/07 08:25 Order name: Basic Metabolic Panel [facility] 10/07 08:25 Order name: CBC with Diff; Complete Time: 11:37 [facility] 10/07 08:25 Order name: Hepatic Function; Complete Time: 11:37 [facility] 10/07 08:25 Order name: Lipase; Complete Time: 11:37 [facility] 10/07 08:25 Order name: SARS-COV-2 RT PCR; Complete Time: 11:37 [facility] 10/07 08:25 Order name: IV Saline Lock; Complete Time: 09:11 [facility] 10/07 08:25 Order name: Labs collected and sent; Complete Time: 09:11 [facility] 10/07 08:25 Order name: Basic Metabolic Panel; Complete Time: 11:37 EDMS 10/07 09:24 Order name: CBC Smear Scan; Complete Time: 11:37 EDMS Administered Medications: 09:10 Drug: NS 0.9% 1000 ml Route: IV; Rate: 1 bolus; Site: right antecubital; bp 10:38 Follow up: IV Status: Completed infusion; IV Intake: 1000ml bp 09:10 Drug: Zofran (Ondansetron) 4 mg Route: IVP; Site: right antecubital; bp 10:37 Follow up: Response: Nausea is decreased bp Disposition Summary: 10/07/21 12:28 Discharge Ordered Location: Home ma2 Condition: Fair ma2 Diagnosis - Diarrhea, unspecified ma2 Followup: ma2 - With: Private Physician - When: Tomorrow - Reason: Recheck today's complaints Discharge Instructions: - Discharge Summary Sheet ma2 - Diarrhea, Infant ma2 Forms: - Medication Reconciliation Form ma2 - Thank You Letter ma2 - Antibiotic Education ma2 - Prescription Opioid Use ma2 Prescriptions: - Zofran 4 mg Oral Tablet - take 1 tablet by ORAL route every 12 hours As needed; 20 tablet; Refills: 0, ma2 Product Selection Permitted - Diclofenac Sodium 75 mg Oral Tablet Sustained Release - take 1 tablet by ORAL route 2 times per day; 30 tablet; Refills: 0, Product ma2 Selection Permitted Signatures: Dispatcher [employer] Karthikeyan Claire, RN RN Magalys Estrada MD MD ma2 Emely Slaughter RN RN ap3
[2021-10-07 13:57] VITALS: TEMP 97.9
[2021-10-07 14:01] VITALS: BP 108/57; O2SAT 100
== END 2021-10-07 12:42 | disposition home or self-care (01) ==
LOC: ER 08:09
DX: R19.7 Diarrhea, unspecified (principal); Z20.822 Contact with and (suspected) exposure to COVID-19; I10 Essential (primary) hypertension; E11.9 Type 2 diabetes mellitus without complications; F41.9 Anxiety disorder, unspecified; Z79.82 Long term (current) use of aspirin; Z79.4 Long term (current) use of insulin; Z88.1 Allergy status to other antibiotic agents; Z91.040 Latex allergy status; Z91.048 Other nonmedicinal substance allergy status
CPT/HCPCS: 96361; 85025; 80048; 36415; 80076; 83690; 96374; 99284; U0003; J7030; J2405

== ENCOUNTER 2022-02-24 15:02 | Emergency (ER) | payer OTHER ==
--- NOTE | 2022-02-24 16:26 | RAD REPORT ---
EXAM DESCRIPTION: RAD - Chest Single View - 02/24/2022 3:40 pm CLINICAL HISTORY: SOB COMPARISON: Portable 06/04/2020 TECHNIQUE: AP portable chest image was obtained 02/24/2022 3:40 pm . FINDINGS: Lungs are clear. Interstitial pattern matches comparison. Sternotomy wires again noted. He art and vasculature are normal. No measurable pleural effusion and no pneumothorax. No acute bony abn ormality seen. No acute aortic findings suspected. IMPRESSION: No acute cardiopulmonary process. No significant change from comparison study.
[2022-02-24 17:03] LABS: Absolute Lymphocytes (CBC) 0.5 K/uL (0.7-4.9); Hematocrit 44.5 % (39.6-49.0); Lymphocytes % 4.8 % (15.3-44.8); MCV 85.9 fL (80-100); MPV 9.9 fL (7.6-11.3); RBC Red Blood Cell Count 5.18 M/uL (4.33-5.43)
[2022-02-24 17:58] LABS: Urine Blood 1+ (Negative); Urine Glucose 3+ (Negative); Urine Protein Negative (Negative); Urine Specific Gravity 1.015 (1.005-1.030)
[2022-02-24 18:25] LABS: Urine Bacteria <20 /HPF (NONE SEEN); Urine Mucus 1+ /HPF (NONE SEEN); Urine RBC <5 /HPF (NONE SEEN)
[2022-02-24 18:41] LABS: Protime INR 1.14
[2022-02-24 18:53] LABS: Bilirubin Direct 0.2 mg/dL (0-0.2); Bilirubin Total 0.7 mg/dL (0.2-1.0); Magnesium 1.8 mg/dL (1.8-2.4); Potassium 4.8 mmol/L (3.5-5.1); Protein, Total 7.6 g/dL (6.4-8.2); Troponin High Sensitivity 14.4 pg/mL (<58.9)
[2022-02-24] MEDS ORDERED: CEFTRIAXONE 1000 MG/VIAL ONE (19:29)
--- NOTE | 2022-02-24 19:41 | EDPHYS ---
Physician Documentation [facility] Name: Alexander Walker Age: 66 yrs Sex: Male : 1955 Arrival Date: 02/24/2022 Time: 15:09 Bed 12 Private MD: ED Physician Holden Velez HPI: 02/24 16:25 This 66 yrs old Male presents to ER via Ambulatory with complaints of cp Shortness Of Breath, chills. 16:25 The patient has shortness of breath with light activity. cp 16:25 Associated signs and symptoms: Pertinent positives: chills, subjective fevers, body cp aches that started yesterday, Pertinent negatives: chest pain, productive cough, diaphoresis, dizziness. Severity of symptoms: in the emergency department the symptoms are unchanged despite home interventions. The patient has experienced a previous episode, similar symptoms when he was diagnosed with infection of blood. Historical: - Allergies: 15:18 Ciprofloxacin; iw 15:18 Latex, Natural Rubber; iw - PMHx: 15:18 Anxiety; Diabetes - IDDM; GERD; neuropathy; Hypertension; Hyperlipidemia; iw - PSHx: 15:18 3X bypass; tesha rotator cuff sx; right leg bypass; right leg stent; iw ROS: 16:30 Constitutional: Positive for body aches, chills, Negative for fever, poor PO intake. cp 16:30 Eyes: Negative for injury, pain, redness, and discharge. cp 16:30 Cardiovascular: Negative for chest pain, edema, palpitations. cp 16:30 Respiratory: Positive for shortness of breath, at rest. Negative for wheezing. 16:30 Abdomen/GI: Negative for vomiting, diarrhea, constipation. 16:30 ENT: Negative for drainage from ear(s), ear pain, sore throat, difficulty swallowing, cp difficulty handling secretions. 16:30 Neck: Negative for pain with movement, pain at rest, stiffness. 16:30 Back: Negative for pain at rest, pain with movement. 16:30 : Positive for urinary symptoms, Negative for penile discharge, testicular pain 16:30 Skin: Negative for cellulitis, rash. 16:30 Neuro: Negative for altered mental status, dizziness, headache. 16:30 All other systems are negative. Exam: 16:35 Constitutional: The patient appears in no acute distress, alert, awake, cp non-diaphoretic, non-toxic, well developed, well nourished. 16:35 Head/Face: Normocephalic, atraumatic. cp 16:35 Eyes: Periorbital structures: appear normal, Conjunctiva: normal, no exudate, no injection, Sclera: no appreciated abnormality, Lids and lashes: appear normal, bilaterally. 16:35 ENT: External ear(s): are unremarkable, Nose: is normal, Mouth: Lips: moist, Oral mucosa: pink and intact, moist, Posterior pharynx: Airway: no evidence of obstruction, patent, erythema, is not appreciated, exudate, is not appreciated. 16:35 Neck: ROM/movement: is normal, is supple, without pain, no range of motions limitations, no meningismus. 16:35 Chest/axilla: Inspection: normal, Palpation: is normal, no crepitus, no tenderness. 16:35 Cardiovascular: Rate: normal, Rhythm: regular, Edema: is not appreciated, JVD: is not appreciated. 16:35 Respiratory: the patient does not display signs of respiratory distress, Respirations: normal, no use of accessory muscles, no retractions, labored breathing, is not present, Breath sounds: are clear throughout, no decreased breath sounds, no stridor, no wheezing. 16:35 Abdomen/GI: Inspection: abdomen appears normal, Bowel sounds: active, all quadrants, Palpation: abdomen is soft and non-tender, in all quadrants. 16:35 Back: CVA tenderness, is absent. 16:35 Skin: cellulitis, is not appreciated, no rash present. 16:35 Neuro: Orientation: to person, place \\T\\ time. Mentation: is normal, Motor: moves all fours, strength is normal, Sensation: is normal. Vital Signs: 15:15 Resp 18; Temp 99.1; iw 15:17 BP 138 / 56; Pulse 89; Resp 18 S; Pulse Ox 96% on R/A; Weight 113.4 kg; Height 5 ft. 11 iw in. (180.34 cm); 15:17 Body Mass Index 34.87 (113.40 kg, 180.34 cm) iw MDM: 16:21 Patient medically screened. cp 17:00 Differential diagnosis: pneumonia, Sepsis UTI, bacteremia, influenza, COVID-19. cp 19:40 Antibiotic administration: The patient is discharged and will get outpatient cp antibiotics. 19:40 Data reviewed: vital signs, nurses notes, lab test result(s), EKG, radiologic studies, cp plain films. Test interpretation: by ED physician or midlevel provider: ECG, plain radiologic studies. Counseling: I had a detailed discussion with the patient and/or guardian regarding: the historical points, exam findings, and any diagnostic results supporting the discharge/admit diagnosis, lab results, radiology results, the need for outpatient follow up, a family practitioner, to return to the emergency department if symptoms worsen or persist or if there are any questions or concerns that arise at home. Response to treatment: the patient's symptoms have mildly improved after treatment, and as a result, I will discharge patient. ED course: VSS. Patient appears non-toxic and no signs of respiratory distress. Will discharge to home for continued monitoring. 02/24 16:31 Order name: COVID-19 SARS RT PCR (Document "Date of Onset" if Symptomatic); Complete cp Time: 19:05 02/24 16:31 Order name: Influenza Screen (a \\T\\ B); Complete Time: 19:05 cp 02/24 16:31 Order name: Basic Metabolic Panel; Complete Time: 19:05 cp 02/24 19:05 Interpretation: Normal except: NA 134; GLUC 158; BUN 23; CRE 1.58; GFR 49. cp 02/24 16:31 Order name: CBC with Diff; Complete Time: 17:35 cp 02/24 17:35 Interpretation: Normal except: JAY% 87.4; LYM% 4.8; NEUT A 9.0; LYMA 0.5. cp 02/24 16:31 Order name: LFT's; Complete Time: 19:05 cp 02/24 16:31 Order name: Magnesium; Complete Time: 19:05 cp 02/24 15:19 Order name: CXR XRAY; Complete Time: 17:35 iw 02/24 16:31 Order name: NT PRO-BNP; Complete Time: 19:05 cp 02/24 16:31 Order name: PT-INR; Complete Time: 19:05 cp 02/24 16:31 Order name: Troponin HS; Complete Time: 19:05 cp 02/24 16:31 Order name: Urine Microscopic Only; Complete Time: 19:05 cp 02/24 19:05 Interpretation: Abnormal: UWBC 5-10. cp 07/13 17:58 Order name: Urine Dipstick-Ancillary; Complete Time: 19:05 EDWV 02/24 18:27 Order name: Urine Culture [facility] 02/24 16:31 Order name: Cardiac monitoring; Complete Time: 19:27 02/24 16:31 Order name: EKG - Nurse/Tech; Complete Time: 19:27 cp 02/24 16:31 Order name: IV Saline Lock; Complete Time: 19:27 cp 02/24 16:31 Order name: Labs collected and sent; Complete Time: 19:27 cp 02/24 16:31 Order name: O2 Per Protocol; Complete Time: 19:27 cp 02/24 16:31 Order name: O2 Sat Monitoring; Complete Time: 19:27 02/24 16:31 Order name: Urine Dipstick-Ancillary (obtain specimen); Complete Time: 19:27 cp Administered Medications: 19:27 Drug: Rocephin - (cefTRIAXone) 1 grams Route: IVPB; Infused Over: 30 mins; Site: right iw antecubital; 19:30 Follow up: IV Status: Completed infusion iw Disposition Summary: 02/24/22 19:40 Discharge Ordered Location: Home cp Problem: new cp Symptoms: have improved cp Condition: Stable cp Diagnosis - UTI/ Urinary tract infection, site not specified cp Followup: cp - With: Private Physician - When: 2 - 3 days - Reason: Recheck today's complaints Discharge Instructions: - Discharge Summary Sheet cp - Urinary Tract Infection, Adult cp Forms: - Medication Reconciliation Form cp - Thank You Letter cp - Antibiotic Education cp - Prescription Opioid Use cp Prescriptions: - cefpodoxime 200 mg Oral Tablet - take 1 tablet by ORAL route every 12 hours for 10 days with food; 20 tablet; cp Refills: 0, Product Selection Permitted - Zofran 4 mg Oral Tablet - take 1 tablet by ORAL route every 12 hours As needed; 20 tablet; Refills: 0, cp Product Selection Permitted Signatures: Dispatcher [employer] Jenise Church RN RN iw Holden Joyner PA PA cp
--- NOTE | 2022-02-24 19:41 | ER ---
Nurse's Notes [facility] Name: Alexander Walker Age: 66 yrs Sex: Male : 1955 Arrival Date: 02/24/2022 Time: 15:09 Bed 12 Private MD: Diagnosis: UTI/ Urinary tract infection, site not specified Presentation: 02/24 15:15 Chief complaint: Patient states: SOB this morning, started with aches and pain in iw joints and chills , no cough, no fever at home , no chest pain. Coronavirus screen: Client presents with at least one sign or symptom that may indicate coronavirus-19. Ebola Screen: Patient negative for fever greater than or equal to 101.5 degrees Fahrenheit, and additional compatible Ebola Virus Disease symptoms Patient denies exposure to infectious person. Patient denies travel to an Ebola-affected area in the 21 days before illness onset. No symptoms or risks identified at this time. Initial Sepsis Screen: Does the patient meet any 2 criteria? No. Patient's initial sepsis screen is negative. Does the patient have a suspected source of infection? No. Patient's initial sepsis screen is negative. Risk Assessment: Do you want to hurt yourself or someone else? Patient reports no desire to harm self or others. Onset of symptoms was February 24, 2022 at 15:16. 15:15 Method Of Arrival: Ambulatory iw 15:15 Acuity: RENY 3 iw Triage Assessment: 15:45 General: Appears in no apparent distress. Behavior is calm, cooperative. Respiratory: iw Reports shortness of breath Onset: The symptoms/episode began/occurred today, the patient has mild shortness of breath. Historical: - Allergies: 15:18 Ciprofloxacin; iw 15:18 Latex, Natural Rubber; iw - PMHx: 15:18 Anxiety; Diabetes - IDDM; GERD; neuropathy; Hypertension; Hyperlipidemia; iw - PSHx: 15:18 3X bypass; tesha rotator cuff sx; right leg bypass; right leg stent; iw Screenin:40 Abuse screen: Denies threats or abuse. Denies injuries from another. Nutritional iw screening: No deficits noted. Tuberculosis screening: No symptoms or risk factors identified. Fall Risk IV access (20 points). Assessment: 15:15 General: Appears uncomfortable, Behavior is calm, cooperative. General: Reports chills iw for feeling ill for fatigue for. Pain: Complains of pain in body aches. Neuro: Level of Consciousness is awake, alert, obeys commands, Oriented to person, place, time, situation, Moves all extremities. Cardiovascular: Patient's skin is warm and dry. Rhythm is regular. Respiratory: Reports shortness of breath on exertion Airway is patent Respiratory effort is even, unlabored, Breath sounds are clear bilaterally. GI: Abdomen is non-distended. Derm: Skin is intact, is healthy with good turgor. Musculoskeletal: Range of motion: intact in all extremities. 18:00 Reassessment: Patient appears in no apparent distress at this time. Patient and/or iw family updated on plan of care and expected duration. Pain level reassessed. Patient is alert, oriented x 3, equal unlabored respirations, skin warm/dry/pink. Vital Signs: 15:15 Resp 18; Temp 99.1; iw 15:17 BP 138 / 56; Pulse 89; Resp 18 S; Pulse Ox 96% on R/A; Weight 113.4 kg; Height 5 ft. 11 iw in. (180.34 cm); 15:17 Body Mass Index 34.87 (113.40 kg, 180.34 cm) iw ED Course: 15:09 Patient arrived in ED. am2 15:15 Arm band placed on. iw 15:16 Triage completed. iw 15:42 CXR XRAY In Process Unspecified. EDMS 16:20 Holden Joyner PA is PHCP. cp 16:20 Holden Velez MD is Attending Physician. cp 16:27 Jenise Goodman RN is Primary Nurse. iw 16:52 Inserted saline lock: 20 gauge in right antecubital area, using aseptic technique. iw Administered Medications: 19:27 Drug: Rocephin - (cefTRIAXone) 1 grams Route: IVPB; Infused Over: 30 mins; Site: right iw antecubital; 19:30 Follow up: IV Status: Completed infusion iw Outcome: 19:40 Discharge ordered by . cp 19:48 Patient left the ED. iw Signatures: Dispatcher [employer] EDMS Jenise Goodman RN RN iw Holden Joyner PA PA Emely Claire am2
[2022-02-24 19:59] VITALS: TEMP 99.1
[2022-02-24 20:01] VITALS: BP 138/56; O2SAT 96
== END 2022-02-24 19:48 | disposition home or self-care (01) ==
LOC: ER 15:02
DX: N39.0 Urinary tract infection, site not specified (principal); Z20.822 Contact with and (suspected) exposure to COVID-19; E11.9 Type 2 diabetes mellitus without complications; I10 Essential (primary) hypertension; Z88.1 Allergy status to other antibiotic agents; Z91.040 Latex allergy status; Z91.048 Other nonmedicinal substance allergy status
CPT/HCPCS: 87088; 85025; 87086; 80048; 36415; 83735; 85610; 80076; 84484; 83880; 87804 ×2; 71045; U0003; 81003; 81015

== ENCOUNTER 2023-01-27 11:00 | Day surgery (SDC) | payer OTHER ==
[2023-01-26 11:16] LABS: Absolute Lymphocytes (CBC) 1.4 K/uL (0.7-4.9); Hematocrit 40.2 % (39.6-49.0); Lymphocytes % 22.7 % (15.3-44.8); MCV 89.7 fL (80-100); MPV 9.1 fL (7.6-11.3); RBC Red Blood Cell Count 4.48 M/uL (4.33-5.43)
[2023-01-26 11:29] LABS: Potassium 4.3 mEq/L (3.5-5.1)
--- NOTE | 2023-01-26 11:47 | RAD REPORT ---
EXAM DESCRIPTION: Leslie Jensen And Elsie (2 Views)01/26/2023 11:03 am CLINICAL HISTORY: Preop for cardiac catheterization. Hypertension COMPARISON: 2021 FINDINGS: The lungs appear clear of acute infiltrate. The heart is normal size Post surgical changes involve the chest IMPRESSION: No acute abnormalities displayed
--- NOTE | 2023-01-26 14:29 | EKG ---
Test Date: 2023-01-26 Test Time: 10:39:17 Proof Load Mechanic: KATHE MEASUREMENT RESULTS: Intervals: Rate: 66 SD: 184 QRSD: 170 QT: 446 QTc: 467 [place]: P: 66 SD: 184 QRS: -78 T: 23 INTERPRETIVE STATEMENTS: Sinus rhythm with premature atrial complexes Left axis deviation Right bundle branch block Abnormal ECG Compared to ECG 05/27/2022 23:50:55 Atrial premature complex(es) now present Electronically Signed On 01-26-23 14:28:22 CDT by Dalton Treviño
[~2023-01-27 11:00] MED LIST: HEPA 1000U/500MLS 2,000 UNIT/1,000 ML BAG IV ONE
[2023-01-27] MEDS ORDERED: NA CHLORIDE 0.9% 500 ML ONE (11:14)
[2023-01-27 11:21] VITALS: O2SAT 97
[2023-01-27] MEDS ORDERED: FENTANYL CITR 100 MCG/2 ML ONE (11:36)
[2023-01-27] MEDS ORDERED: ASPIRIN 325 MG TAB ONE (11:37)
[2023-01-27] MEDS ORDERED: TICAGRELOR 90 MG TABLET PO ONE (11:37)
[2023-01-27] MEDS ORDERED: CLOPIDOGREL 75 MG TABLET ONE (11:37)
[2023-01-27] MEDS ORDERED: NITROGLYCERIN 100 MCG/ML SYR (for cath lab use only) IV ONE (11:37)
[2023-01-27] MEDS ORDERED: MIDAZOLAM HCL 2 MG/2 ML INJ ONE ×2 (11:37→13:45)
[2023-01-27] MEDS ORDERED: ATROPINE SULF 1 MG/10 ML SYR IV ONE (11:38)
[2023-01-27] MEDS ORDERED: NITROGLYCERIN/D5W 25 MG/250 ML BTL IV ONE (11:38)
[2023-01-27] MEDS ORDERED: HEPARIN 10,000 UNIT/10 ML VIAL IV ONE (11:38)
[2023-01-27] MEDS ORDERED: LIDOCAINE 1% 20 ML MDV ONE (11:42)
[2023-01-27] MEDS ORDERED: HYDRALAZINE HCL 20 MG/ML VIAL ONE (11:55)
[2023-01-27] MEDS ORDERED: LOSARTAN POTASSIUM 50 MG TABLET ONE (14:37)
--- NOTE | 2023-01-27 15:38 | OP ---
Date of Procedure: 01/27/2023 Surgeon: ABY BLAIR Procedures Performed: 1.Selective coronary angiogram with bypass graft study. 2.Peripheral angiogram. Indication: 1.Abnormal stress test with chest pain. 2.Peripheral vascular disease by Doppler. Access: Left femoral artery 6-Gambian closed with StarClose and manual pressure. Complications: None. Bleeding: Less than 20 mL. Anesthesia: Total sedation time was 55 minutes. Used fentanyl and Versed. Description Of Procedure: After risks, benefits, alternatives were explained, the patient agreed to procedure and signed informed consent. The patient was brought into the cardiac catheterization [facility], prepped and draped in the usual sterile fashion. Then, I accessed left femoral artery using micropuncture kit, fluoroscopy, and ultrasound guidance and placed 6-Gambian [place] sheath and took 6-Gambian JL4 catheter into the aortic root, engaged left main, took standard views, and then exchange d for 6-Gambian JR4 catheter, engaged the RCA, SVG to RCA, SVG to diagonal branch, and the TAVERAS to LAD and took standard views of all, and then the catheter was pushed over the wire into the LV, measured LVEDP, pullback did not record any gradient. Then, I removed the JR4 catheter and exchanged for a s traight pigtail catheter which was placed in the distal aorta and did distal aortogram with runoff. I then removed the catheter and sheath was removed. StarClose was used for closure and manual pressu re with good hemostasis. Findings: The coronary angiogram with bypass graft study; 1.Left main is normal. 2.LAD; it is 100% occluded ostially. 3.Left circumflex; small with proximal 50% stenosis. 4.RCA; diffuse, proximal disease ranging between 60% to 70% and then becomes [employer] in the mid segment, totally occluded. Graft Study: 1.Patent SVG to RCA. 2.Patent SVG to diagonal 1 branch. 3.Patent TAVERAS to LAD. 4.Elevated LVEDP at 20 mmHg. Peripheral angiogram; 1.Distal aorta is patent. 2.Right lower extremity, the right common iliac is widely patent with luminal regularities, the righ t external iliac and right common femoral widely patent with luminal irregularities. Then, the SFA i s patent for just a few mm where there was a femoral to popliteal bypass graft that is patent with mi ld diffuse stenosis. Then, the SFA and the proximal segment becomes totally occluded and it is very long [employer]. The profunda is widely patent. Vessels below the knee are patent with diffuse 50% to 60% stenosis. 3.Left lower extremity;. a.The left common iliac and left external iliacs are widely patent. The left common femoral is cherry nt, but the distal left common femoral and ostial of the left SFA, there is heavily calcified severe focal stenosis ranging between 70% and 80%. The left profunda is patent, the left SFA has diffuse pr oximal to mid 20% to 30% and distal diffuse 50% three-vessel runoff are patent with diffuse 20% to 30 % stenosis. Conclusion: 1.Severe [place] coronary artery disease with patent SVG to diagonal 1, patent TAVERAS to LAD, patent SV G to RCA. 2.Severe peripheral vascular disease involving both legs and the right leg. Bypass is widely patent , but the distal left common femoral and proximal left SFA, there is a focal severe stenosis, heavily calcified and that is moderate disease. Recommendations: 1.Medical management for his cardiac condition. 2.For the peripheral vascular disease, I recommend a balloon angioplasty of the left common femoral and the proximal SFA with shockwave lithotripsy, plus-minus stent placement to be done at [place]. The patient tolerated the procedure very well and sent to recovery in stable condition. SR/MODL Voice ID: [id number] Report ID: [id number]
[2023-01-27 17:26] VITALS: BP 156/74
== END 2023-01-27 17:00 | disposition home or self-care (01) ==
LOC: CCL 11:00
PROVIDERS: ATTEND Internal Medicine
DX: I25.10 Atherosclerotic heart disease of native coronary artery without angina pectoris (principal); I25.82 Chronic total occlusion of coronary artery; I70.223 Atherosclerosis of native arteries of extremities with rest pain, bilateral legs; I70.92 Chronic total occlusion of artery of the extremities; I11.0 Hypertensive heart disease with heart failure; I50.9 Heart failure, unspecified; E78.5 Hyperlipidemia, unspecified; E11.9 Type 2 diabetes mellitus without complications; I25.2 Old myocardial infarction; Z95.1 Presence of aortocoronary bypass graft; Z87.891 Personal history of nicotine dependence; Z79.82 Long term (current) use of aspirin; Z79.4 Long term (current) use of insulin; Z79.85 Long-term (current) use of injectable non-insulin antidiabetic drugs; Z88.3 Allergy status to other anti-infective agents; Z91.040 Latex allergy status; Z82.49 Family history of ischemic heart disease and other diseases of the circulatory system
CPT/HCPCS: 93005; 85025; 80048; 36415; 85610; 82947; 85730; 71046; 75630; 36245; 93459; 76937; C1893; J0360; J2001; J2250 ×2; J3010; J7040; J0461

== ENCOUNTER 2023-07-01 08:27 | Emergency (ER) | payer OTHER ==
--- OUTSIDE RECORDS SUMMARY | 2023-07-01 08:42 | XMS REPORT | Continuity of Care Document ---
:[address] [facility] t Address [address] [place] [address] [place] [id number] Care Team Providers Name Role Phone Sophia Mccracken DO Primary Care Physician Sophia Mccracken Attending Clinician Unavailable ARTHUR HUDSON Attending Clinician Unavailable TOBI CASTELLANO Attending Clinician Unavailable Tobi Chery Attending Clinician MICKEY_Darrel_Bladimir Attending Clinician Unavailable Doctor Unassigned, [place] Attending Clinician Unavailable Bryan Menjivar MD Attending Clinician Salomon Rebollar Attending Clinician Unavailable Dalton Treviño Attending Clinician Unavailable Lab, Ang - Db Attending Clinician Unavailable Nurse, Lionel Db Attending Clinician Unavailable FOG_A_Provider Attending Clinician Unavailable Vaccine, Ang Db Cbc Fam Attending Clinician Unavailable Velasquez Ricardo MD Attending Clinician VELASQUEZ RICARDO Attending Clinician Unavailable TabSade kelley Attending Clinician [phone] MILTON LE Attending Clinician Unavailable ALLEY WONG Attending Clinician Unavailable Lab, Adc Fam Pob I Attending Clinician Unavailable Green DOMESTIC TRAVEL CONSULTANTAlley Attending Clinician BRONWYN AGUIRRE Attending Clinician Unavailable ATTARTROY Attending Clinician Unavailable Troy Huber MD Attending Clinician ARTHUR HUDSON Admitting Clinician Unavailable [place]_ Admitting Clinician Unavailable Salomon Rebollar Admitting Clinician Unavailable Dalton Treviño Admitting Clinician Unavailable TOBI CASTELLANO Admitting Clinician Unavailable FOG_A_Provider Admitting Clinician Unavailable Payers Payer Name Policy Type Policy Number Effective Date Expiration Date S paramjit [facility] [id number] 2017 BLUE/ESSENTIALS 00:00:00 [facility] [id number] 2020 [facility] [place] 00:00:00 PPO [facility] [id number] (MEDICARE 00:00:00 REPLACEMENT/ADVANT AGE - PPO) [facility] HealthSelect 1 [id number] 2021 Common TRS/ERS [facility] PPO 00:00:00 [facility] [id number] 2017 00:00:00 [facility] REVIEW [id number] 2020 00:00:00 Problems Condition Condition Condition Status Onset Resolution Last Treating Co mments Source Name Details Category Date Date Treatment Clinician Date Encounter Encounter Disease Active Uni vers for for 05 [place] Medical abdominal abdominal Bran ch aortic aortic aneurysm aneurysm (AAA) in (AAA) in patient 50 patient 50 years of years of age or age or older with older with history of history of smoking smoking Need for Need for Disease Active Unive rs vaccinatio vaccinatio 5-05 it y of n n 00:00: [place] 00 Medical Branch Need for Need for Disease Active 2021-08 Unive rs hepatitis hepatitis 2- ity of C C 00:00: [place] screening screening 00 Medi araceli test test Branch Gastroesop Gastroesop Disease Active 2021-08 U nivers hageal hageal 2-28 ity of reflux reflux 00:00: [place] disease disease 00 Medical without without Branch esophagiti esophagiti s s Encounter Encounter Disease Active 2021-08 Uni vers to to 2 [place] of establish establish 00:[place] care care [place] Medical [place] Rotator Rotator Problem Active 2021-08 Мария cuff tear Cuff Tear 08-17 Orth ope arthropath Arthropath 00:00: di c y y 00 Sports Medicin e Shoulder Shoulder Problem Active 2021-08 [facility] a pain Pain 08-15 Orthope 00:00: dic 00 Sports Medicin e Carotid Carotid Disease Recurre 2019-[address] [facility] artery artery nce 0-15 [facility] disease disease 00:00: Medical 00 Center Preoperati Preoperati Disease Active 2019-[address] ve ve 0-15 [facility] evaluation evaluation 00:00: Me dical to rule to rule 00 Center out out surgical surgical contraindi contraindi cation cation Congestive Congestive Problem Active A zalea 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 00:00: dic 00 Sports Medicin e Peripheral Peripheral Problem Active A [facility]a vascular Vascular 05-12 Orthop e disease Disease 00:00: dic 00 Sports Medicin e Rotator Rotator Problem Active Мария cuff Cuff 05-07 Orthope syndrome Syndrome 00:00: dic 00 Sports Medicin e Insomnia Insomnia Problem Active [place]ale a 8-11 Orthope 00:00: dic 00 Sports Medicin e Essential Essential Problem Active Aza ezio hypertensi Hypertensi 8-11 Or thope on on 00:00: dic 00 Sports Medicin e Paroxysmal Paroxysmal Problem Active A zalea tachycardi Tachycardi 8-11 Or ope a a 00:00: dic 00 Sports Medicin e Heart Heart Problem Active Мария failure Failure 8-11 Orthope 00:00: dic 00 Sports Medicin e Vitamin D Vitamin D Disease Active Uni vers deficiency deficiency 6-14 it y of 00:00: [place] 00 Medical Branch [id number] CKD Problem Common (chronic Spirit kidney - CHI disease), stage II [facility] [id number] Pain in Problem Common left hip Spirit - [facility] 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 with [facility] peripheral Medica l angiopathy Center without gangrene [id number] Unspecifie Problem C ommon 72970 d Spirit atheroscle - CHI rosis of 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 Spir it - CH[facility] Intermitte Intermitte Problem C ommon nt nt Spirit claudicati claudicati - CHI on [facility] [id number] Tremor Problem Common [facility] Multiple Multiple Problem Commo n joint pain joint pain Sp celeste - [facility] [id number] Lower Problem Common extremity Spirit edema - [facility] [id number] Polyneurop Problem Com mon athy, Spirit unspecifie - CHI d [facility] Diabetes Diabetes Problem Commo n mellitus Spirit without - CHI complicati [facility] [id number] Mixed Problem Common hyperlipid Spirit emia - [facility] Obesity Obesity Problem Common Spirit - [facility] [id number] PUD Problem Common (peptic Spirit ulcer - CHI disease) [facility] [id number] Bilateral Problem Com mon carotid Spirit artery - CHI stenosis [facility] [id number] Occlusion Problem Com mon and [facility] Center [id number] [place] [id number] brown-colo Spirit red urine - [facility] Diabetes Diabetes Disease Active Overview: Un sukhwinder mellitus mellitus ICD10 ity of type 2, type 2, Diagnosis [place] uncontroll uncontroll Term Me dical ed, ed, Community Health Consultant Branch without without Utility complicati complicati ons ons Essential Essential Disease Active Uni vers hypertensi hypertensi it y of on, benign [place] benign [place] Coronary Coronary Disease Active Unive rs atheroscle atheroscle it y of rosis sailaja [facility] Diabetes Diabetes Disease Active Overview: Un sukhwinder mellitus mellitus Formattin ity of type 2, type 2, g of this [place] uncontroll uncontroll note Me dical ed, ed, might be Branch without without different complicati complicati from the ons ons original. ICD10 Diagnosis Term Community [facility] Consultant Utility Diabetes Diabetes Disease Recurre [facility] mellitus mellitus nce [facility] Coronary Coronary Disease Active CHI S t artery artery [facility] Hypertensi Hypertensi Disease Active C HI St on on [facility] Hyperlipid Hyperlipid Disease Active C HI St emia emia [facility] No known No known Disease Metho di active active st problems problems Hospit a l Allergies, Adverse Reactions, Alerts Allergy Allergy Status Severity Reaction(s) Onset Inactive Treating Comm ents Source Name Type Date Date Clinician morphine DA Active U Hallucinatio HC A n 8-07 Clear 00:00: Dove [facility] ciproflo DA Active MO "[facility] xacin REASONING 7-17 Clear PROBLEMS" 00:00: [facility]ove [facility] latex DA Active MO RASHES [facility] 7-17 Clear 00:00: Dove [facility] Ciproflo Propensi Active 2020-[address] xacin ty to 9-30 [facility] adverse 00:00: Medical reaction 00 Center s Latex Propensi Active 2020-[address] ty to 9-30 [facility] adverse 00:00: Medical reaction 00 Center s CIPROFLO Allergy Active 2020-[address] XACIN 9-30 [facility] 00:00: Medical 00 Center LATEX Allergy Active 2020-[address] 9-30 [facility] 00:00: Medical 00 Center Pregabal Drug Active 2020-[address] in Allergy 4-03 reaction( [facility] 00:00: s): Info Medical 00 Not Center Available , UnknownOt her reaction( s): Unknown PREGABAL Allergy Active 2020-[address] IN 4-03 [facility] 00:00: Medical 00 Center Ciproflo Propensi Active Other (See hallucina Methodi xacin ty to Comments) 03-[address] adverse 00:00: Hospita reaction 00 l s to drug Latex Propensi Active Rash Methodi ty to 03-07 st adverse 00:00: Hospita reaction 00 l s to drug Morphine Propensi Active Other (See Hallucina Methodi ty to Comments) 03-[address] adverse 00:00: Hospita reaction 00 l s to drug Latex Allergy Active Мария to 05-07 Orthope substanc 00:00: dic e 00 Sports Medicin e ciproflo DA Active MO "[facility] xacin REASONING 8-11 Clear PROBLEMS" 00:00: Dove 00 [facility] latex DA Active MO RASHES [facility] 8-11 Clear 00:00: Dove 00 [facility] MOLD DA Active MO RESP [facility] SYMPTOMS 8-11 Clear 00:00: Dove 00 [facility] Cipro Allergy Active Мария to 811 Orthope substanc 00:00: dic e 00 Sports Medicin e Ciproflo Propensi Active Other - See "made me Univers xacin ty to comments 2-10 crazy" ity of adverse 00:00: [place] reaction 00 Medical s to Branch drug CIPROFLO DRUG Active Other-Cmnt Univ ers XACIN INGREDI 2-10 ity of 00:00: [place] 00 Medical Branch Latex Propensi Active Rash 2010-08 Univers [...] 00:00: [place] reaction 00 Medical s Branch Adhesive Propensi Active Rash 2010-[address] [facility] ty to 1-18 [facility] adverse 00:00: Medical reaction 00 Center s ADHESIVE Allergy Active Low Rash 2010-[address] [facility] 1-18 [facility] 00:00: Medical 00 Center Latex Latex Active rash Common [facility] - [facility] ciproflo ciproflo Active Unknown Commo n xacin xacin Spirit - [facility] Family History Family Member Diagnosis Comments Start Date Stop Date Source Natural father Heart disease [facility] Natural father Heart attack [facility] Natural father Hypertension [facility] Natural brother Heart attack [facility] Natural brother Hypertension [facility] Natural mother Stroke [facility] Natural mother Stroke [facility] Social History Social Habit Start Date Stop Date Quantity Comments Source History SDOH [facility] Alcohol Std Drinks [facility] History SDOH [facility] Alcohol Binge Medical [address] [facility] Gender identity Universit y of [facility] Sexual orientation [facility] Exposure to 2022-12-07 2022-12-17 Not sure University SARS-CoV-2 (event) 00:00:00 10:36:00 [facility] Tobacco use and 2022-08-11 2022-08-11 Smokeless Universit y of exposure 00:00:00 00:00:00 tobacco non-user [facility] History of Social 2020-07-23 2020-07-[address] function 00:00:00 00:00:00 Hospital Alcohol intake 2020-06-18 2020-06-18 [facility]er [facility]00 [facility] (finding) Cigarette 2020-05-21 2020-05-[address] [facility] pack-years 00:00:00 00:00:00 [facility] Cigarettes smoked 2020-05-21 2020-05-[address] [facility] current (pack per 00:00:00 00:00:00 Medical Center day) - Reported History SDOH 2020-05-14 2020-05-[address] [facility] Alcohol Frequency 00:00:00 00:00:00 [facility] Tobacco Comment 2017-03-07 2017-03-07 quit [employer] 00:00:00 00:00:00 Hospital Alcohol Comment 2011-07-04 2011-07-04 beer Universit y of 00:00:00 00:00:00 [facility] History of tobacco 2010-10-04 Cigarette Smoker University of use 00:00:00 [facility] Sex [birth year] JOHN Stanley kes 00:00:00 00:00:00 Medical Center Smoking Status Start Date Stop Date Source Ex-smoker 2022-08-11 00:00:00 2022-08-11 00:00:00 [facility] Never Smoker [facility] Medications Ordered Filled Start Stop Current Ordering Indication Dosage Frequency Signature Comments Components Source Medication Medication Date Date Medication? Clinician (SIG) Name Name PANTOPRAZOL 2022-08 Yes [id number] 40mg TAKE 1 Univers E 40 mg EC 1-08 TABLET BY ity of tablet 00:00: MOUTH [place] [address] EVERY DAY [address] IN [facility] MORNING carvediloL 2022-0 Yes 12.5mg Take 1 Uni vers 12.5 mg 8-25 tablet by ity of tablet 16:03: mouth in [address] and 1 tablet in the evening. Take with meals. carvediloL 2022-0 Yes 12.5mg Take 1 Uni vers 12.5 mg 8-25 tablet by ity of tablet 16:03: mouth in [address] and 1 tablet in the evening. Take with meals. carvediloL 2022-0 Yes 12.5mg Take 1 Uni vers 12.5 mg 8-25 tablet by ity of tablet 16:03: mouth in [address] and 1 tablet in the evening. Take with meals. carvediloL 2022-0 Yes 12.5mg Take 1 Uni vers 12.5 mg 8-25 tablet by ity of tablet 16:03: mouth in [address] and 1 tablet in the evening. Take with meals. carvediloL 3-0 Yes 12.5mg Take 1 Uni vers 12.5 mg 8-25 tablet by ity of tablet 16:03: mouth in [address] and 1 tablet in the evening. Take with meals. pantoprazol 2022-0 Yes [id number] 40mg TAKE 1 Univers e 40 mg EC 8-14 TABLET BY ity of tablet 00:00: MOUTH [place] 00 EVERY DAY Medical IN [facility] MORNING pantoprazol 3-0 Yes [id number] 40mg TAKE 1 Univers e 40 mg EC 8-14 TABLET BY ity of tablet 00:00: MOUTH [place] [address] EVERY DAY Medical IN [facility] MORNING pantoprazol 2023-0 Yes [id number] 40mg TAKE 1 Univers e 40 mg EC 8-14 TABLET BY ity of tablet 00:00: MOUTH [place] 00 EVERY DAY Medical IN THE [place] MORNING pantoprazol Yes [id number] 40mg TAKE 1 Univers e 40 mg EC 8-14 TABLET BY ity of tablet 00:00: MOUTH [place] 00 EVERY DAY Medical IN THE [place] MORNING pantoprazol Yes [id number] 40mg TAKE 1 Univers e 40 mg EC 8-14 TABLET BY ity of tablet 00:00: MOUTH [place] 00 EVERY DAY Medical IN THE [place] MORNING pantoprazol Yes [id number] 40mg TAKE 1 Univers e 40 mg EC 8-14 TABLET BY ity of tablet 00:00: MOUTH [place] 00 EVERY DAY Medical IN THE [facility] pantoprazol 2022- No [id number] 40mg TAKE 1 Univers e 40 mg EC 8-14 11-08 TABLET BY ity of tablet 00:00: 00:00 MOUTH [place] 00 :00 EVERY DAY Medical IN THE [facility] NEBIVOLOL 0 Yes [id number] TAKE 1 Uni vers 20 mg 7-03 TABLET BY ity of tablet 00:00: MOUTH [place] 00 EVERY DAY Medical IN THE [facility] NEBIVOLOL 0 Yes [id number] TAKE 1 Uni vers 20 mg 7-03 TABLET BY ity of tablet 00:00: MOUTH [place] 00 EVERY DAY Medical IN THE [facility] NEBIVOLOL 2022-0 3- No [id number] TAKE 1 Un sukhwinder 20 mg 7-03 08-25 TABLET BY ity of tablet 00:00: 00:00 MOUTH [place] 00 :00 EVERY DAY Medical IN THE [facility] NEBIVOLOL 2022-0 3- No [id number] TAKE 1 Un sukhwinder 20 mg 7-03 08-25 TABLET BY ity of tablet 00:00: 00:00 MOUTH [place] 00 :00 EVERY DAY Medical IN THE [place] MORNING CLOPIDOGREL 2022-0 Yes [id number] TAKE 1 Univers 75 mg 6-30 TABLET BY ity of tablet 00:00: MOUTH [place] 00 EVERY DAY Medical IN THE [place] MORNING CLOPIDOGREL 2022-0 Yes [id number] TAKE 1 Univers 75 mg 6-30 TABLET BY ity of tablet 00:00: MOUTH [place] 00 EVERY DAY Medical IN THE [place] MORNING CLOPIDOGREL 2022-0 Yes [id number] TAKE 1 Univers 75 mg 6-30 TABLET BY ity of tablet 00:00: MOUTH [place] 00 EVERY DAY Medical IN THE [place] MORNING CLOPIDOGREL 2022-0 Yes [id number] TAKE 1 Univers 75 mg 6-30 TABLET BY ity of tablet 00:00: MOUTH [place] 00 EVERY DAY Medical IN THE [facility] LANTUS 2022-0 Yes 55U inject 55 Univer s SOLOSTAR 6-30 Units ity of U-100 00:00: under the [place] INSULIN 100 00 skin every Me dical unit/mL (3 evening. Branc h mL) injection CLOPIDOGREL 2022-0 Yes [id number] TAKE 1 Univers 75 mg 6-30 TABLET BY ity of tablet 00:00: MOUTH [place] 00 EVERY DAY Medical IN THE [place] MORNING LANTUS 2022-0 Yes 55U inject 55 Univer s SOLOSTAR 6-30 Units ity of U-100 00:00: under the [place] INSULIN 100 00 skin every Me dical unit/mL (3 evening. Branc h mL) injection CLOPIDOGREL 2022-0 Yes [id number] TAKE 1 Univers 75 mg 6-30 TABLET BY ity of tablet 00:00: MOUTH [place] 00 EVERY DAY Medical IN THE [facility] LANTUS 2022-0 Yes 55U inject 55 Univer s SOLOSTAR 6-30 Units ity of U-100 00:00: under the [place] INSULIN 100 00 skin every Me dical unit/mL (3 evening. Branc h mL) injection CLOPIDOGREL 2022-0 Yes [id number] TAKE 1 Univers 75 mg 6-30 TABLET BY ity of tablet 00:00: MOUTH [place] 00 EVERY DAY Medical IN THE [facility] LANTUS 2022-0 Yes 55U inject 55 Univer s SOLOSTAR 6-30 Units ity of U-100 00:00: under the [place] INSULIN 100 00 skin every Me dical unit/mL (3 evening. Branc h mL) injection CLOPIDOGREL 2022-0 Yes [id number] TAKE 1 Univers 75 mg 6-30 TABLET BY ity of tablet 00:00: MOUTH [place] 00 EVERY DAY Medical IN THE [place] MORNING CLOPIDOGREL 2022-0 Yes [id number] TAKE 1 Univers 75 mg 6-30 TABLET BY ity of tablet 00:00: MOUTH [place] 00 EVERY DAY Medical IN THE [facility] LANTUS 2022-0 Yes 55U inject 55 Univer s SOLOSTAR 6-30 Units ity of U-100 00:00: under the [place] INSULIN 100 00 skin every Me dical unit/mL (3 evening. Branc h mL) injection CLOPIDOGREL 3-0 Yes [id number] TAKE 1 Univers 75 mg 6-30 TABLET BY ity of tablet 00:00: MOUTH [place] 00 EVERY DAY Medical IN THE Branch MORNING losartan 2023-0 Yes [id number] 100mg Take 1 Uni vers 100 mg 6-26 tablet by ity of tablet 00:00: mouth in [place] the Medical morning. Branch losartan 2023-0 Yes [id number] 100mg Take 1 Uni vers 100 mg 6-26 tablet by ity of tablet 00:00: mouth in [place] the Medical morning. Branch losartan 2023-0 Yes [id number] 100mg Take 1 Uni vers 100 mg 6-26 tablet by ity of tablet 00:00: mouth in [place] the Medical morning. Branch losartan 3-0 Yes [id number] 100mg Take 1 Uni vers 100 mg 6-26 tablet by ity of tablet 00:00: mouth in [place] the Medical morning. Branch losartan 2023-0 Yes [id number] 100mg Take 1 Uni vers 100 mg 6-26 tablet by ity of tablet 00:00: mouth in [place] the Medical morning. Branch losartan 2023-0 Yes [id number] 100mg Take 1 Uni vers 100 mg 6-26 tablet by ity of tablet 00:00: mouth in [place] the Medical morning. Branch losartan 3-0 Yes [id number] 100mg Take 1 Uni vers 100 mg 6-26 tablet by ity of tablet 00:00: mouth in [place] the Medical morning. Branch losartan 2023-0 Yes [id number] 100mg Take 1 Uni vers 100 mg 6-26 tablet by ity of tablet 00:00: mouth in [place] the Medical morning. Branch losartan 2023-0 Yes [id number] 100mg Take 1 Uni vers 100 mg 6-26 tablet by ity of tablet 00:00: mouth in [place] the Medical morning. Branch losartan 2023-0 Yes [id number] 100mg Take 1 Uni vers 100 mg 6-26 tablet by ity of tablet 00:00: mouth in [place] the Medical morning. Branch losartan 2023-0 Yes [id number] 100mg Take 1 Uni vers 100 mg 6-26 tablet by ity of tablet 00:00: mouth in [place] the Medical morning. Branch losartan 2023-0 Yes [id number] 100mg Take 1 Uni vers 100 mg 6-26 tablet by ity of tablet 00:00: mouth in [place] 00 the Medical morning. Branch Insulin 2023-0 Yes 1U Inject 1 Univer s [place], 5-26 Units as ity of Disposable, 00:00: directed 4 [place] (BD 00 (four) Medical ULTRAFINE times Branch III MINI daily. PEN) 31 gauge x 3/16" Ndle Insulin 2023-0 Yes 1U Inject 1 Univer s [place], 5-26 Units as ity of Disposable, 00:00: directed 4 [place] (BD 00 (four) Medical ULTRAFINE times Branch III MINI daily. PEN) 31 gauge x 3/16" Ndle Insulin 2023-0 Yes 1U Inject 1 Univer s [place], 5-26 Units as ity of Disposable, 00:00: directed 4 [place] (BD 00 (four) Medical ULTRAFINE times Branch III MINI daily. PEN) 31 gauge x 3/16" Ndle Insulin 2023-0 Yes 1U Inject 1 Univer s [place], 5-26 Units as ity of Disposable, 00:00: directed 4 [place] (BD 00 (four) Medical ULTRAFINE times Branch III MINI daily. PEN) 31 gauge x 3/16" Ndle Insulin 2023-0 Yes 1U Inject 1 Univer s [place], 5-26 Units as ity of Disposable, 00:00: directed 4 [place] (BD 00 (four) Medical ULTRAFINE times Branch III MINI daily. PEN) 31 gauge x 3/16" Ndle Insulin 2023-0 Yes 1U Inject 1 Univer s [place], 5-26 Units as ity of Disposable, 00:00: directed 4 [place] (BD 00 (four) Medical ULTRAFINE times Branch III MINI daily. PEN) 31 gauge x 3/16" Ndle Insulin 2023-0 Yes 1U Inject 1 Univer s [place], 5-26 Units as ity of Disposable, 00:00: directed 4 [place] (BD 00 (four) Medical ULTRAFINE times Branch III MINI daily. PEN) 31 gauge x 3/16" Ndle Insulin 2023-0 Yes 1U Inject 1 Univer s [place], 5-26 Units as ity of Disposable, 00:00: directed 4 [place] (BD 00 (four) Medical ULTRAFINE times Branch III MINI daily. PEN) 31 gauge x 3/16" Ndle Insulin 2023-0 Yes 1U Inject 1 Univer s [place], 5-26 Units as ity of Disposable, 00:00: directed 4 [place] (BD 00 (four) Medical ULTRAFINE times Branch III MINI daily. PEN) 31 gauge x 3/16" Ndle Insulin 2022-0 Yes 1U Inject 1 Univer s [place], 5-26 Units as ity of Disposable, 00:00: directed 4 [place] (BD 00 (four) Medical ULTRAFINE times Branch III MINI daily. PEN) 31 gauge x 3/16" Ndle Insulin 2022-0 Yes 1U Inject 1 Univer s [place], 5-26 Units as ity of Disposable, 00:00: directed 4 [place] (BD 00 (four) Medical ULTRAFINE times Branch III MINI daily. PEN) 31 gauge x 3/16" Ndle Insulin 2022-0 Yes 1U Inject 1 Univer s [place], 5-26 Units as ity of Disposable, 00:00: directed 4 [place] (BD 00 (four) Medical ULTRAFINE times Branch III MINI daily. PEN) 31 gauge x 3/16" Ndle Insulin 2022-0 Yes 1U Inject 1 Univer s [place], 5-26 Units as ity of Disposable, 00:00: directed 4 [place] (BD 00 (four) Medical ULTRAFINE times Branch III MINI daily. PEN) 31 gauge x 3/16" Ndle cephALEXin 2022- No [id number] 500mg Take 1 Univers (KEFLEX) 12-20 capsule by ity of 500 mg 00:00: 04:59 mouth in [place] capsule 00 :00 the Medical morning Branch and 1 capsule in the evening. Do all this for 7 days. cephALEXin 2022-0 2022- No [id number] 500mg Take 1 Univers (KEFLEX) 12-20 capsule by ity of 500 mg 00:00: 04:59 mouth in [place] capsule 00 :00 the Medical morning Branch and 1 capsule in the evening. Do all this for 7 days. cephALEXin 2022-0 2022- No [id number] 500mg Take 1 Univers (KEFLEX) 12-20 capsule by ity of 500 mg 00:00: 04:59 mouth in [place] capsule 00 :00 the Medical morning Branch and 1 capsule in the evening. Do all this for 7 days. pantoprazol 2023-0 2023- No 1{tbl} Take 1 U nivers e 40 mg EC 2-27 02-27 tablet by ity of tablet 13:08: 00:00 mouth in [place] 59 :00 the Medical morning. Branch pantoprazol 2022-0 Yes [id number] 40mg Take 1 Univers e 40 mg EC 2-27 tablet by ity of tablet 00:00: mouth in [place] 00 the Medical morning. Branch pantoprazol 2022-0 Yes [id number] 40mg Take 1 Univers e 40 mg EC 2-27 tablet by ity of tablet 00:00: mouth in [place] 00 the Medical morning. Branch pantoprazol 2022-0 Yes [id number] 40mg Take 1 Univers e 40 mg EC 2-27 tablet by ity of tablet 00:00: mouth in [place] 00 the Medical morning. Branch pantoprazol 2022-0 Yes [id number] 40mg Take 1 Univers e 40 mg EC 2-27 tablet by ity of tablet 00:00: mouth in [place] 00 the Medical morning. Branch pantoprazol 2022-0 Yes [id number] 40mg Take 1 Univers e 40 mg EC 2-27 tablet by ity of tablet 00:00: mouth in [place] 00 the Medical morning. Branch pantoprazol 2022-0 Yes [id number] 40mg Take 1 [facility] 40 mg EC 2-27 tablet by [facility] tablet 00:00: mouth in [place] 00 the Medical morning. Branch pantoprazol 2022-0 Yes [id number] 40mg Take 1 [facility] e 40 mg EC 2-27 tablet by [facility] tablet 00:00: mouth in [place] 00 the Medical morning. Branch pantoprazol 2022-0 Yes [id number] 40mg Take 1 [facility] e 40 mg EC 2-27 tablet by [facility] of tablet 00:00: mouth in [place] 00 the Medical morning. Branch pantoprazol 2022-0 Yes [id number] 40mg Take 1 [facility] 40 mg EC 2-27 tablet by [facility] of tablet 00:00: mouth in [place] 00 the Medical morning. Branch pantoprazol 2022-0 Yes [id number] 40mg Take 1 [facility] 40 mg EC 2-27 tablet by [facility] of tablet 00:00: mouth in [place] 00 the Medical morning. Branch pantoprazol 2022-0 Yes [id number] 40mg Take 1 [facility] 40 mg EC 2-27 tablet by [facility] of tablet 00:00: mouth in [place] 00 the Medical morning. Branch pantoprazol 2022-0 Yes [id number] 40mg Take 1 [facility] 40 mg EC 2-27 tablet by [facility] of tablet 00:00: mouth in [place] 00 the Medical morning. Branch pantoprazol 2022-0 Yes [id number] 40mg Take 1 [facility] 40 mg EC 2-27 tablet by [facility] of tablet 00:00: mouth in [place] 00 the Medical morning. Branch pantoprazol 2022-0 Yes [id number] 40mg Take 1 [facility] 40 mg EC 2-27 tablet by [facility] of tablet 00:00: mouth in [place] 00 the Medical morning. Branch pantoprazol 2022-0 Yes [id number] 40mg Take 1 [facility] 40 mg EC 2-27 tablet by [facility] of tablet 00:00: mouth in [place] 00 the Medical morning. Branch pantoprazol 2022-0 Yes [id number] 40mg Take 1 [facility] 40 mg EC 2-27 tablet by [facility] of tablet 00:00: mouth in [place] 00 the Medical morning. Branch pantoprazol 2022-0 Yes [id number] 40mg Take 1 [facility] e 40 mg EC 2-27 tablet by [facility] of tablet 00:00: mouth in [place] 00 the Medical morning. Branch pantoprazol 2022-0 Yes [id number] 40mg Take 1 [facility] 40 mg EC 2-27 tablet by [facility] of tablet 00:00: mouth in [place] 00 the Medical morning. Branch pantoprazol 2022-0 Yes [id number] 40mg Take 1 [facility] e 40 mg EC 2-27 tablet by [facility] of tablet 00:00: mouth in [place] 00 the Medical morning. Branch pantoprazol 2022-0 Yes [id number] 40mg Take 1 [facility] 40 mg EC 2-27 tablet by [facility] of tablet 00:00: mouth in [place] 00 the Medical morning. Branch pantoprazol 2022-0 Yes [id number] 40mg Take 1 [facility] e 40 mg EC 2-27 tablet by [facility] of tablet 00:00: mouth in [place] 00 the Medical morning. Branch pantoprazol 2022-0 3- No [id number] 40mg Take 1 [facility] e 40 mg EC 2-27 08-14 tablet by [facility] of tablet 00:00: 00:00 mouth in [place] 00 :00 the Medical morning. Branch Nebivolol 2023-0 2023- No 1{tbl} Take 1 [facility] vers 20 mg 1-18 01-18 tablet by [facility] of tablet 11:46: 00:00 mouth in [place] 55 :00 the Medical morning. Branch Nebivolol 3-0 Yes [id number] 20mg Take 1 [facility] vers 20 mg 1-18 tablet by [facility] of tablet 00:00: mouth in [place] 00 the Medical morning. Branch Nebivolol 3-0 Yes [id number] 20mg Take 1 [facility] vers 20 mg 1-18 tablet by [facility] of tablet 00:00: mouth in [place] 00 the Medical morning. Branch Nebivolol 3-0 Yes [id number] 20mg Take 1 [facility] vers 20 mg 1-18 tablet by [facility] of tablet 00:00: mouth in [place] 00 the Medical morning. Branch Nebivolol 2022-0 Yes [id number] 20mg Take 1 [facility] vers 20 mg 1-18 tablet by [facility] of tablet 00:00: mouth in [place] 00 the Medical morning. Branch Nebivolol 2022-0 Yes [id number] 20mg Take 1 [facility] vers 20 mg 1-18 tablet by [facility] of tablet 00:00: mouth in [place] 00 the Medical morning. Branch Nebivolol 2022-0 Yes [id number] 20mg Take 1 [facility] vers 20 mg 1-18 tablet by [facility] of tablet 00:00: mouth in [place] 00 the Medical morning. Branch Nebivolol 2022-0 Yes [id number] 20mg Take 1 [facility] vers 20 mg 1-18 tablet by [facility] of tablet 00:00: mouth in [place] 00 the Medical morning. Branch Nebivolol 3-0 Yes [id number] 20mg Take 1 [facility] vers 20 mg 1-18 tablet by [facility] of tablet 00:00: mouth in [place] 00 the Medical morning. Branch Nebivolol 3-0 Yes [id number] 20mg Take 1 [facility] vers 20 mg 1-18 tablet by [facility] of tablet 00:00: mouth in [place] 00 the Medical morning. Branch Nebivolol 3-0 Yes [id number] 20mg Take 1 [facility] vers 20 mg 1-18 tablet by [facility] of tablet 00:00: mouth in [place] 00 the Medical morning. Branch Nebivolol 3-0 Yes [id number] 20mg Take 1 [facility] vers 20 mg 1-18 tablet by [facility] of tablet 00:00: mouth in [place] 00 the Medical morning. Branch Nebivolol 3-0 Yes [id number] 20mg Take 1 [facility] vers 20 mg 1-18 tablet by [facility] of tablet 00:00: mouth in [place] 00 the Medical morning. Branch Nebivolol 3-0 Yes [id number] 20mg Take 1 [facility] vers 20 mg 1-18 tablet by [facility] of tablet 00:00: mouth in [place] 00 the Medical morning. Branch Nebivolol 3-0 Yes [id number] 20mg Take 1 [facility] vers 20 mg 1-18 tablet by [facility] of tablet 00:00: mouth in [place] 00 the Medical morning. Branch Nebivolol 3-0 Yes [id number] 20mg Take 1 [facility] vers 20 mg 1-18 tablet by [facility] of tablet 00:00: mouth in [place] 00 the Medical morning. Branch Nebivolol 3-0 Yes [id number] 20mg Take 1 [facility] vers 20 mg 1-18 tablet by [facility] of tablet 00:00: mouth in [place] 00 the Medical morning. Branch Nebivolol 3-0 Yes [id number] 20mg Take 1 [facility] vers 20 mg 1-18 tablet by [facility] of tablet 00:00: mouth in [place] the Medical morning. Branch Nebivolol 3-0 Yes [id number] 20mg Take 1 [facility] vers 20 mg 1-18 tablet by [facility] of tablet 00:00: mouth in [place] 00 the Medical morning. Branch Nebivolol 3-0 Yes [id number] 20mg Take 1 [facility] vers 20 mg 1-18 tablet by [facility] of tablet 00:00: mouth in [place] 00 the Medical morning. Branch Nebivolol 3-0 Yes [id number] 20mg Take 1 [facility] vers 20 mg 1-18 tablet by [facility] of tablet 00:00: mouth in [place] 00 the Medical morning. Branch Nebivolol 3-0 Yes [id number] 20mg Take 1 [facility] vers 20 mg 1-18 tablet by [facility] of tablet 00:00: mouth in [place] 00 the Medical morning. Branch Nebivolol 3-0 Yes [id number] 20mg Take 1 [facility] vers 20 mg 1-18 tablet by [facility] of tablet 00:00: mouth in [place] 00 the Medical morning. Branch Nebivolol 3-0 2023- No [id number] 20mg Take 1 [facility] sukhwinder 20 mg 1-18 - tablet by [facility] of tablet 00:00: 00:00 mouth in [place] 00 :00 the Medical morning. Branch clopidogreL 2023-0 Yes [id number] 75mg Take 1 [facility] (PLAVIX) 75 1-02 tablet by [facility] mg tablet 00:00: mouth [place] 00 the Medical morning. Branch clopidogreL 2023-0 Yes [id number] 75mg Take 1 [facility] (PLAVIX) 75 1-02 tablet by [facility] mg tablet 00:00: mouth [place] 00 the Medical morning. Branch clopidogreL 2023-0 Yes [id number] 75mg Take 1 [facility] (PLAVIX) 75 1-02 tablet by [facility] of mg tablet 00:00: mouth [place] 00 the Medical morning. Branch clopidogreL 2023-0 Yes [id number] 75mg Take 1 [facility] (PLAVIX) 75 1-02 tablet by [facility] of mg tablet 00:00: mouth [place] 00 the Medical morning. Branch clopidogreL 2023-0 Yes [id number] 75mg Take 1 [facility] (PLAVIX) 75 1-02 tablet by [facility] of mg tablet 00:00: mouth [place] 00 the Medical morning. Branch clopidogreL 2023-0 Yes [id number] 75mg Take 1 [facility] (PLAVIX) 75 1-02 tablet by [facility] of mg tablet 00:00: mouth [place] 00 the Medical morning. Branch clopidogreL 2023-0 Yes [id number] 75mg Take 1 [facility] (PLAVIX) 75 1-02 tablet by [facility] of mg tablet 00:00: mouth [place] 00 the Medical morning. Branch clopidogreL 2023-0 Yes [id number] 75mg Take 1 [facility] (PLAVIX) 75 1-02 tablet by [facility] of mg tablet 00:00: mouth [place] 00 the Medical morning. Branch clopidogreL 2023-0 Yes [id number] 75mg Take 1 [facility] (PLAVIX) 75 1-02 tablet by [facility] of mg tablet 00:00: mouth [place] 00 the Medical morning. Branch clopidogreL 2023-0 Yes [id number] 75mg Take 1 [facility] (PLAVIX) 75 1-02 tablet by [facility] of mg tablet 00:00: mouth [place] 00 the Medical morning. Branch clopidogreL 2023-0 Yes [id number] 75mg Take 1 [facility] (PLAVIX) 75 1-02 tablet by [facility] of mg tablet 00:00: mouth [place] 00 the Medical morning. Branch clopidogreL 2023-0 Yes [id number] 75mg Take 1 [facility] (PLAVIX) 75 1-02 tablet by [facility] of mg tablet 00:00: mouth [place] 00 the Medical morning. Branch clopidogreL 2023-0 Yes [id number] 75mg Take 1 [facility] (PLAVIX) 75 1-02 tablet by [facility] of mg tablet 00:00: mouth [place] 00 the Medical morning. Branch clopidogreL 2023-0 Yes [id number] 75mg Take 1 [facility] (PLAVIX) 75 1-02 tablet by [facility] of mg tablet 00:00: mouth [place] 00 the Medical morning. Branch clopidogreL 2023-0 Yes [id number] 75mg Take 1 [facility] (PLAVIX) 75 1-02 tablet by [facility] of mg tablet 00:00: mouth [place] 00 the Medical morning. Branch clopidogreL 2023-0 Yes [id number] 75mg Take 1 [facility] (PLAVIX) 75 1-02 tablet by it[facility] of mg tablet 00:00: mouth [place] 00 the Medical morning. Branch clopidogreL 2023-0 Yes [id number] 75mg Take 1 [facility] (PLAVIX) 75 1-02 tablet by [facility] of mg tablet 00:00: mouth [place] 00 the Medical morning. Branch clopidogreL 2023-0 Yes [id number] 75mg Take 1 [facility] (PLAVIX) 75 1-02 tablet by ity of mg tablet 00:00: mouth [place] 00 the Medical morning. Branch clopidogreL 2023-0 Yes [id number] 75mg Take 1 [facility] (PLAVIX) 75 1-02 tablet by it[facility] of mg tablet 00:00: mouth [place] 00 the Medical morning. Branch clopidogreL 2023-0 Yes [id number] 75mg Take 1 [facility] (PLAVIX) 75 1-02 tablet by ity of mg tablet 00:00: mouth [place] 00 the Medical morning. Branch clopidogreL 2023-0 Yes [id number] 75mg Take 1 [facility] (PLAVIX) 75 1-02 tablet by it[facility] of mg tablet 00:00: mouth [place] 00 the Medical morning. Branch clopidogreL 2023-0 Yes [id number] 75mg Take 1 [facility] (PLAVIX) 75 1-02 tablet by it[facility] of mg tablet 00:00: mouth [place] 00 the Medical morning. Branch clopidogreL 2023-0 2023- No [id number] 75mg Take 1 [facility] (PLAVIX) 75 08-16 06-30 tablet by it y of mg tablet 00:00: 00:00 mouth in [place] 00 :00 the Medical morning. Branch vitamin 2021-08 Yes 1000ug Take 1,000 Un sukhwinder B-12 1,000 2-28 mcg by ity of mcg tablet 16:48: mouth [place] 56 daily. [facility] Branch vitamin 2021-08 Yes 1000ug Take 1,000 Un sukhwinder B-12 1,000 2-28 mcg by ity of mcg tablet 16:48: mouth [place] 56 daily. Medical Branch vitamin 2021- Yes 1000ug Take 1,000 Un sukhwinder B-12 1,000 2-28 mcg by ity of mcg tablet 16:48: mouth [place] 56 daily. [facility] vitamin 2021-08 Yes 1000ug Take 1,000 Un sukhwinder B-12 1,000 2-28 mcg by ity of mcg tablet 16:48: mouth [place] 56 daily. [facility] vitamin 2021-08 Yes 1000ug Take 1,000 Un sukhwinder B-12 1,000 2-28 mcg by ity of mcg tablet 16:48: mouth [place] 56 daily. Medical Branch vitamin 2021- Yes 1000ug Take 1,000 Un sukhwinder B-12 1,000 2-28 mcg by ity of mcg tablet 16:48: mouth [place] 56 daily. [facility] vitamin 2021-08 Yes 1000ug Take 1,000 Un sukhwinder B-12 1,000 2-28 mcg by ity of mcg tablet 16:48: mouth [place] 56 daily. [facility] vitamin 2021- Yes 1000ug Take 1,000 Un sukhwinder B-12 1,000 2-28 mcg by ity of mcg tablet 16:48: mouth [place] 56 daily. [facility] Branch vitamin 2021- Yes 1000ug Take 1,000 Un sukhwinder B-12 1,000 2-28 mcg by ity of mcg tablet 16:48: mouth [place] 56 daily. [facility] Branch vitamin 2021- Yes 1000ug Take 1,000 Un sukhwinder B-12 1,000 2-28 mcg by ity of mcg tablet 16:48: mouth [place] 56 daily. [facility] Branch pantoprazol 2021-08 Yes 1{tbl} Take 1 Un sukhwinder e 40 mg EC 2-28 tablet by ity of tablet 16:48: mouth in [place] 56 the Medical morning. Branch vitamin 2021-1 Yes 1000ug Take 1,000 Un sukhwinder B-12 1,000 2-28 mcg by ity of mcg tablet 16:48: mouth [place] 56 daily. Medical Branch pantoprazol 2021-08 Yes 1{tbl} Take 1 Un sukhwinder e 40 mg EC 2-28 tablet by ity of tablet 16:48: mouth in [place] 56 the Medical morning. Branch vitamin 2021- Yes 1000ug Take 1,000 Un sukhwinder B-12 1,000 2-28 mcg by ity of mcg tablet 16:48: mouth [place] 56 daily. Medical Branch pantoprazol 2021-08 Yes 1{tbl} Take 1 Un sukhwinder e 40 mg EC 2-28 tablet by ity of tablet 16:48: mouth in [place] 56 the Medical morning. Branch vitamin 2021- Yes 1000ug Take 1,000 Un sukhwinder B-12 1,000 2-28 mcg by ity of mcg tablet 16:48: mouth [place] 56 daily. Medical Branch pantoprazol 2021-08 Yes 1{tbl} Take 1 Un sukhwinder e 40 mg EC 2-28 tablet by ity of tablet 16:48: mouth in [place] 56 the Medical morning. Branch vitamin 2021- Yes 1000ug Take 1,000 Un sukhwinder B-12 1,000 2-28 mcg by ity of mcg tablet 16:48: mouth [place] 56 daily. Medical Branch pantoprazol 2021-08 Yes 1{tbl} Take 1 Un sukhwinder e 40 mg EC 2-28 tablet by ity of tablet 16:48: mouth in [place] 56 the Medical morning. Branch vitamin 2021- Yes 1000ug Take 1,000 Un sukhwinder B-12 1,000 2-28 mcg by ity of mcg tablet 16:48: mouth [place] 56 daily. Medical Branch pantoprazol 2021-08 Yes 1{tbl} Take 1 Un sukhwinder e 40 mg EC 2-28 tablet by ity of tablet 16:48: mouth in [place] 56 the Medical morning. Branch vitamin 2021- Yes 1000ug Take 1,000 Un sukhwinder B-12 1,000 2-28 mcg by ity of mcg tablet 16:48: mouth [place] 56 daily. Medical Branch pantoprazol 2021-08 Yes 1{tbl} Take 1 Un sukhwinder e 40 mg EC 2-28 tablet by ity of tablet 16:48: mouth in [place] 56 the Medical morning. Branch vitamin 2021- Yes 1000ug Take 1,000 Un sukhwinder B-12 1,000 2-28 mcg by ity of mcg tablet 16:48: mouth [place] 56 daily. Medical Branch vitamin 2021- Yes 1000ug Take 1,000 Un sukhwinder B-12 1,000 2-28 mcg by ity of mcg tablet 16:48: mouth [place] 56 daily. Medical Branch vitamin 2021- Yes 1000ug Take 1,000 Un sukhwinder B-12 1,000 2-28 mcg by ity of mcg tablet 16:48: mouth [place] 56 daily. Medical Branch vitamin 2021- Yes 1000ug Take 1,000 Un sukhwinder B-12 1,000 2-28 mcg by ity of mcg tablet 16:48: mouth [place] 56 daily. Medical Branch vitamin 2021- Yes 1000ug Take 1,000 Un sukhwinder B-12 1,000 2-28 mcg by ity of mcg tablet 16:48: mouth [place] 56 daily. Medical Branch vitamin 2021-1 Yes 1000ug Take 1,000 Un sukhwinder B-12 1,000 2-28 mcg by ity of mcg tablet 16:48: mouth [place] 56 daily. Medical Branch vitamin 2021-1 Yes 1000ug Take 1,000 Un sukhwinder B-12 1,000 2-28 mcg by ity of mcg tablet 16:48: mouth [place] 56 daily. Medical Branch vitamin 2021- Yes 1000ug Take 1,000 Un sukhwinder B-12 1,000 2-28 mcg by ity of mcg tablet 16:48: mouth [place] 56 daily. Medical Branch vitamin 2021-1 Yes 1000ug Take 1,000 Un sukhwinder B-12 1,000 2-28 mcg by ity of mcg tablet 16:48: mouth [place] 56 daily. Medical Branch vitamin 2021-1 Yes 1000ug Take 1,000 Un sukhwinder B-12 1,000 2-28 mcg by ity of mcg tablet 16:48: mouth [place] 56 daily. Medical Branch vitamin 2021-1 Yes 1000ug Take 1,000 Un sukhwinder B-12 1,000 2-28 mcg by ity of mcg tablet 16:48: mouth [place] 56 daily. Medical Branch vitamin 2021-1 Yes 1000ug Take 1,000 Un sukhwinder B-12 1,000 2-28 mcg by ity of mcg tablet 16:48: mouth [place] 56 daily. [facility] vitamin 2021-08 Yes 1000ug Take 1,000 Un sukhwinder B-12 1,000 2-28 mcg by ity of mcg tablet 16:48: mouth [place] 56 daily. [facility] vitamin 2021-08 Yes 1000ug Take 1,000 Un sukhwinder B-12 1,000 2-28 mcg by ity of mcg tablet 16:48: mouth [place] 56 daily. [facility] vitamin 2021-08 Yes 1000ug Take 1,000 Un sukhwinder B-12 1,000 2-28 mcg by ity of mcg tablet 16:48: mouth [place] 56 daily. [facility] vitamin 2021-08 Yes 1000ug Take 1,000 Un sukhwinder B-12 1,000 2-28 mcg by ity of mcg tablet 16:48: mouth [place] 56 daily. [facility] vitamin 2021-08 Yes 1000ug Take 1,000 Un sukhwinder B-12 1,000 2-28 mcg by ity of mcg tablet 16:48: mouth [place] 56 daily. [facility] vitamin 2021-08 Yes 1000ug Take 1,000 Un sukhwinder B-12 1,000 2-28 mcg by ity of mcg tablet 16:48: mouth [place] 56 daily. [facility] vitamin 2021-08 Yes 1000ug Take 1,000 Un sukhwinder B-12 1,000 2-28 mcg by ity of mcg tablet 16:48: mouth [place] 56 daily. [facility] Nebivolol 2021-08 Yes 1{tbl} Take 1 [facility] ers 20 mg 2-28 tablet by ity of tablet 16:46: mouth in [place] 07 the Medical morning. Branch Nebivolol 2021-08 Yes 1{tbl} Take 1 [facility] ers 20 mg 2-28 tablet by ity of tablet 16:46: mouth in [place] 07 the Medical morning. [place] Nebivolol 2021-08 Yes 1{tbl} Take 1 [facility] ers 20 mg 2-28 tablet by ity of tablet 16:46: mouth in [place] 07 the Medical morning. [place] Nebivolol 2021-08 Yes 1{tbl} Take 1 [facility] ers 20 mg 2-28 tablet by ity of tablet 16:46: mouth in [place] 07 the Medical morning. [place] Nebivolol 2021-08 Yes 1{tbl} Take 1 [facility] ers 20 mg 2-28 tablet by ity of tablet 16:46: mouth in [place] 07 the Medical morning. Branch nebivolol 2021-08- No [id number] 10mg Take 10 mg [facility] (BYSTOLIC) 2-28 12-28 by mouth ity of 10 mg 16:45: 00:00 daily. [place] tablet 21 :00 Medical Branch aspirin 81 2021-08 Yes [id number] 81mg Take 81 mg [facility] mg chewable 2-28 by mouth ity of tablet 16:28: daily. [address] Branch cetirizine 2021-08 Yes 10mg Take 10 mg U nivers 10 mg 2-28 by mouth ity of tablet 16:28: daily. [address] Branch aspirin 81 2021-08 Yes [id number] 81mg Take 81 mg [facility] mg chewable 2-28 by mouth ity of tablet 16:28: daily. [address] Branch cetirizine 2021-08 Yes 10mg Take 10 mg U nivers 10 mg 2-28 by mouth ity of tablet 16:28: daily. [address] Branch aspirin 81 2021-08 Yes [id number] 81mg Take 81 mg [facility] mg chewable 2-28 by mouth ity of tablet 16:28: daily. [address] Branch cetirizine 2021-08 Yes 10mg Take 10 mg U nivers 10 mg 2-28 by mouth ity of tablet 16:28: daily. [address] Branch aspirin 81 2021-08 Yes [id number] 81mg Take 81 mg [facility] mg chewable 2-28 by mouth ity of tablet 16:28: daily. [address] Branch cetirizine 2021-08 Yes 10mg Take 10 mg U nivers 10 mg 2-28 by mouth ity of tablet 16:28: daily. [address] Branch aspirin 81 2021-08 Yes [id number] 81mg Take 81 mg [facility] mg chewable 2-28 by mouth ity of tablet 16:28: daily. [address] Branch cetirizine 2021-08 Yes 10mg Take 10 mg U nivers 10 mg 2-28 by mouth ity of tablet 16:28: daily. [address] Branch aspirin 81 2021-08 Yes [id number] 81mg Take 81 mg [facility] mg chewable 2-28 by mouth ity of tablet 16:28: daily. [address] Branch cetirizine 2022-1 Yes 10mg Take 10 mg U nivers 10 mg 2-28 by mouth ity of tablet 16:28: daily. [address] aspirin 81 2021-08 Yes [id number] 81mg Take 81 mg [facility] mg chewable 2-28 by mouth ity of tablet 16:28: daily. [address] Branch cetirizine 2021-08 Yes 10mg Take 10 mg U nivers 10 mg 2-28 by mouth ity of tablet 16:28: daily. [address] aspirin 81 2021-08 Yes [id number] 81mg Take 81 mg [facility] mg chewable 2-28 by mouth ity of tablet 16:28: daily. [address] Branch cetirizine 2021-08 Yes 10mg Take 10 mg U nivers 10 mg 2-28 by mouth ity of tablet 16:28: daily. [address] aspirin 81 2021-08 Yes [id number] 81mg Take 81 mg [facility] mg chewable 2-28 by mouth ity of tablet 16:28: daily. [address] cetirizine 2021-08 Yes 10mg Take 10 mg U nivers 10 mg 2-28 by mouth ity of tablet 16:28: daily. [address] aspirin 81 2021-08 Yes [id number] 81mg Take 81 mg [facility] mg chewable 2-28 by mouth ity of tablet 16:28: daily. [address] cetirizine 2021-08 Yes 10mg Take 10 mg U nivers 10 mg 2-28 by mouth ity of tablet 16:28: daily. [address] aspirin 81 2021-08 Yes [id number] 81mg Take 81 mg [facility] mg chewable 2-28 by mouth ity of tablet 16:28: daily. [address] Branch cetirizine 2021-08 Yes 10mg Take 10 mg U nivers 10 mg 2-28 by mouth ity of tablet 16:28: daily. [address] aspirin 81 2021-08 Yes [id number] 81mg Take 81 mg [facility] mg chewable 2-28 by mouth ity of tablet 16:28: daily. [address] cetirizine 2021-08 Yes 10mg Take 10 mg U nivers 10 mg 2-28 by mouth ity of tablet 16:28: daily. [address] aspirin 81 2021-08 Yes [id number] 81mg Take 81 mg [facility] mg chewable 2-28 by mouth ity of tablet 16:28: daily. [address] Branch cetirizine 2021-08 Yes 10mg Take 10 mg U nivers 10 mg 2-28 by mouth ity of tablet 16:28: daily. [address] Branch aspirin 81 2021-08 Yes [id number] 81mg Take 81 mg [facility] mg chewable 2-28 by mouth ity of tablet 16:28: daily. [address] Branch cetirizine 2021-08 Yes 10mg Take 10 mg U nivers 10 mg 2-28 by mouth ity of tablet 16:28: daily. [address] Branch aspirin 81 2021-08 Yes [id number] 81mg Take 81 mg [facility] mg chewable 2-28 by mouth ity of tablet 16:28: daily. [address] Branch cetirizine 2021-08 Yes 10mg Take 10 mg U nivers 10 mg 2-28 by mouth ity of tablet 16:28: daily. [address] aspirin 81 2021-08 Yes [id number] 81mg Take 81 mg [facility] mg chewable 2-28 by mouth ity of tablet 16:28: daily. [address] Branch cetirizine 2021-08 Yes 10mg Take 10 mg U nivers 10 mg 2-28 by mouth ity of tablet 16:28: daily. [address] aspirin 81 2021-08 Yes [id number] 81mg Take 81 mg [facility] mg chewable 2-28 by mouth ity of tablet 16:28: daily. [address] cetirizine 2021-08 Yes 10mg Take 10 mg U nivers 10 mg 2-28 by mouth ity of tablet 16:28: daily. [address] Branch aspirin 81 2021-08 Yes [id number] 81mg Take 81 mg [facility] mg chewable 2-28 by mouth ity of tablet 16:28: daily. [address] Branch cetirizine 2021-08 Yes 10mg Take 10 mg U nivers 10 mg 2-28 by mouth ity of tablet 16:28: daily. [address] aspirin 81 2021-08 Yes [id number] 81mg Take 81 mg [facility] mg chewable 2-28 by mouth ity of tablet 16:28: daily. [address] Branch cetirizine 2021-08 Yes 10mg Take 10 mg U nivers 10 mg 2-28 by mouth ity of tablet 16:28: daily. [address] aspirin 81 2021-08 Yes [id number] 81mg Take 81 mg [facility] mg chewable 2-28 by mouth ity of tablet 16:28: daily. [address] Branch cetirizine 2021-08 Yes 10mg Take 10 mg U nivers 10 mg 2-28 by mouth ity of tablet 16:28: daily. [address] aspirin 81 2021-08 Yes [id number] 81mg Take 81 mg [facility] mg chewable 2-28 by mouth ity of tablet 16:28: daily. [address] Branch cetirizine 2021-08 Yes 10mg Take 10 mg U nivers 10 mg 2-28 by mouth ity of tablet 16:28: daily. [address] aspirin 81 2021-08 Yes [id number] 81mg Take 81 mg [facility] mg chewable 2-28 by mouth ity of tablet 16:28: daily. [address] cetirizine 2021-08 Yes 10mg Take 10 mg U nivers 10 mg 2-28 by mouth ity of tablet 16:28: daily. [address] aspirin 81 2021-08 Yes [id number] 81mg Take 81 mg [facility] mg chewable 2-28 by mouth ity of tablet 16:28: daily. [address] cetirizine 2021-08 Yes 10mg Take 10 mg U nivers 10 mg 2-28 by mouth ity of tablet 16:28: daily. [address] aspirin 81 2021-08 Yes [id number] 81mg Take 81 mg [facility] mg chewable 2-28 by mouth ity of tablet 16:28: daily. [address] Branch cetirizine 2021-08 Yes 10mg Take 10 mg U nivers 10 mg 2-28 by mouth ity of tablet 16:28: daily. [address] aspirin 81 2021-08 Yes [id number] 81mg Take 81 mg [facility] mg chewable 2-28 by mouth ity of tablet 16:28: daily. [address] cetirizine 2021-08 Yes 10mg Take 10 mg U nivers 10 mg 2-28 by mouth ity of tablet 16:28: daily. [address] aspirin 81 2021-08 Yes [id number] 81mg Take 81 mg [facility] mg chewable 2-28 by mouth ity of tablet 16:28: daily. [address] Branch cetirizine 2021-08 Yes 10mg Take 10 mg U nivers 10 mg 2-28 by mouth ity of tablet 16:28: daily. [address] Branch aspirin 81 2021-08 Yes [id number] 81mg Take 81 mg [facility] mg chewable 2-28 by mouth ity of tablet 16:28: daily. [address] Branch cetirizine 2021-08 Yes 10mg Take 10 mg U nivers 10 mg 2-28 by mouth ity of tablet 16:28: daily. [address] aspirin 81 2021-08 Yes [id number] 81mg Take 81 mg [facility] mg chewable 2-28 by mouth ity of tablet 16:28: daily. [address] cetirizine 2021-08 Yes 10mg Take 10 mg U nivers 10 mg 2-28 by mouth ity of tablet 16:28: daily. [address] aspirin 81 2021-08 Yes [id number] 81mg Take 81 mg [facility] mg chewable 2-28 by mouth ity of tablet 16:28: daily. [address] Branch cetirizine 2021-08 Yes 10mg Take 10 mg U nivers 10 mg 2-28 by mouth ity of tablet 16:28: daily. [address] aspirin 81 2021-08 Yes [id number] 81mg Take 81 mg [facility] mg chewable 2-28 by mouth ity of tablet 16:28: daily. [address] cetirizine 2021-08 Yes 10mg Take 10 mg U nivers 10 mg 2-28 by mouth ity of tablet 16:28: daily. [address] aspirin 81 2021-08 Yes [id number] 81mg Take 81 mg [facility] mg chewable 2-28 by mouth ity of tablet 16:28: daily. [address] Branch cetirizine 2021-08 Yes 10mg Take 10 mg U nivers 10 mg 2-28 by mouth ity of tablet 16:28: daily. [address] [address] aspirin 81 2021-08 Yes [id number] 81mg Take 81 mg [facility] mg chewable 2-28 by mouth ity of tablet 16:28: daily. [address] Branch cetirizine 2021-08 Yes 10mg Take 10 mg U nivers 10 mg 2-28 by mouth ity of tablet 16:28: daily. [address] aspirin 81 2021-08 Yes [id number] 81mg Take 81 mg [facility] mg chewable 2-28 by mouth ity of tablet 16:28: daily. [address] cetirizine 2021-08 Yes 10mg Take 10 mg U nivers 10 mg 2-28 by mouth ity of tablet 16:28: daily. [address] aspirin 81 2021-08 Yes [id number] 81mg Take 81 mg [facility] mg chewable 2-28 by mouth ity of tablet 16:28: daily. [address] cetirizine 2021-08 Yes 10mg Take 10 mg U nivers 10 mg 2-28 by mouth ity of tablet 16:28: daily. [address] aspirin 81 2021-08 Yes [id number] 81mg Take 81 mg [facility] mg chewable 2-28 by mouth ity of tablet 16:28: daily. [address] cetirizine 2021-08 Yes 10mg Take 10 mg U nivers 10 mg 2-28 by mouth ity of tablet 16:28: daily. [address] aspirin 81 2021-08 Yes [id number] 81mg Take 81 mg [facility] mg chewable 2-28 by mouth ity of tablet 16:28: daily. [address] cetirizine 2021-08 Yes 10mg Take 10 mg U nivers 10 mg 2-28 by mouth ity of tablet 16:28: daily. [address] cholecalcif 2021-08- No 1000U Take 1,000 [facility] isabella, 2-28 12-28 Units by ity of vitamin D3, 10:09: 00:[place] (VITAMIN 54 :00 daily. Medical D3) 1,000 Branch unit tablet cholecalcif 2021-08- No 1000U Take 1,000 [facility] isabella, 2-28 12-28 Units by ity of vitamin D3, 10:09: 00:[place] (VITAMIN 54 :00 daily. Medical D3) 1,000 Branch unit tablet cholecalcif 2021-08- No 1000U Take 1,000 [facility] isabella, 2-28 12-28 Units by ity of vitamin D3, 10:09: 00:00 [place] (VITAMIN 54 :00 daily. Medical D3) 1,000 Branch unit tablet cholecalcif 2021-08- No 1000U Take 1,000 [facility] is[place], 2-28 12-28 Units by ity of vitamin D3, 10:09: 00:00 [place] (VITAMIN 54 :00 daily. Medical D3) 1,000 Branch unit tablet cholecalcif 2021-08- No 1000U Take 1,000 [facility] is[place], 2-28 12-28 Units by ity of vitamin D3, 10:09: 00:00 [place] (VITAMIN 54 :00 daily. Medical D3) 1,000 Branch unit tablet DOCOSAHEXAN 2021-08- No 1200mg Take 1,200 Univers OIC 2-28 12-28 mg by ity of ACID/EPA 10:09: 00:00 mouth. [place] (FISH OIL 48 :00 Medical ORAL) Branch DOCOSAHEXAN 2021-08- No 1200mg Take 1,200 [facility] OIC 2-28 12-28 mg by ity of ACID/EPA 10:09: 00:00 mouth. [place] (FISH OIL 48 :00 Medical ORAL) Branch DOCOSAHEXAN 2021-08- No 1200mg Take 1,200 [facility] OIC 2-28 12-28 mg by ity of ACID/EPA 10:09: 00:00 mouth. [place] (FISH OIL 48 :00 Medical ORAL) Branch DOCOSAHEXAN 2021-08- No 1200mg Take 1,200 [facility] OIC 2-28 12-28 mg by ity of ACID/EPA 10:09: 00:00 mouth. [place] (FISH OIL 48 :00 Medical ORAL) Branch DOCOSAHEXAN 2021-08- No 1200mg Take 1,200 [facility] OIC 2-28 12-28 mg by ity of ACID/EPA 10:09: 00:00 mouth. [place] (FISH OIL 48 :00 Medical ORAL) Branch cilostazol 2021-08- No 100mg Take 100 U nivers (PLETAL) 2-28 12-28 mg by ity of 100 mg 10:08: 00:00 mouth. [place] tablet 52 :00 Medical Branch cilostazol 2021-08- No 100mg Take 100 U nivers (PLETAL) 2-28 12-28 mg by ity of 100 mg 10:08: 00:00 mouth. [place] tablet 52 :00 Medical Branch cilostazol 2021-08- No 100mg Take 100 U nivers (PLETAL) 2-28 12-28 mg by ity of 100 mg 10:08: 00:00 mouth. [place] tablet 52 :00 Medical Branch cilostazol 2021-08- No 100mg Take 100 U nivers (PLETAL) 2-28 12-28 mg by ity of 100 mg 10:08: 00:00 mouth. [place] tablet 52 :00 Medical Branch cilostazol 2021-08- No 100mg Take 100 U nivers (PLETAL) 2-28 12-28 mg by ity of 100 mg 10:08: 00:00 mouth. [place] tablet 52 :00 [facility] 2021-08 Yes weekly. Unive rs 4.5 mg/0.5 2-12 ity of mL PnIj 00:00: [facility] 2021-08 Yes weekly. Unive rs 4.5 mg/0.5 2-12 ity of mL PnIj 00:00: [facility] 2021-08 Yes weekly. Unive rs 4.5 mg/0.5 2-12 ity of mL PnIj 00:00: [facility] 2021-08 Yes weekly. Unive rs 4.5 mg/0.5 2-12 ity of mL PnIj 00:00: [facility] 2021-08 Yes weekly. Unive rs 4.5 mg/0.5 2-12 ity of mL PnIj 00:00: [facility] 2021-08 Yes weekly. Unive rs 4.5 mg/0.5 2-12 ity of mL PnIj 00:00: [facility] 2021-08 Yes weekly. Unive rs 4.5 mg/0.5 2-12 ity of mL PnIj 00:00: [facility] 2021-08 Yes weekly. Unive rs 4.5 mg/0.5 2-12 ity of mL PnIj 00:00: [facility] 2021-08 Yes weekly. Unive rs 4.5 mg/0.5 2-12 ity of mL PnIj 00:00: Medical Branch TRULICITY 2021-08 Yes Univers 4.5 mg/0.5 2-12 ity of mL PnIj 00:00: Medical Branch [facility] 2021-08 Yes Univers 4.5 mg/0.5 2-12 ity of mL PnIj 00:00: Medical Branch [facility] 2021-08 Yes Univers 4.5 mg/0.5 2-12 ity of mL PnIj 00:00: [facility] 2021-08 Yes Univers 4.5 mg/0.5 2-12 ity of mL PnIj 00:00: Medical Branch [facility] 2021-08 Yes Univers 4.5 mg/0.5 2-12 ity of mL PnIj 00:00: [facility] 2021-08 Yes weekly. Unive rs 4.5 mg/0.5 2-12 ity of mL PnIj 00:00: Medical [facility] 2021-08 Yes weekly. Unive rs 4.5 mg/0.5 2-12 ity of mL PnIj 00:00: Medical [facility] 2021-08 Yes weekly. Unive rs 4.5 mg/0.5 2-12 ity of mL PnIj 00:00: Medical [facility] 2021-08 Yes weekly. Unive rs 4.5 mg/0.5 2-12 ity of mL PnIj 00:00: Medical Branch [facility] 2021-08 Yes weekly. Unive rs 4.5 mg/0.5 2-12 ity of mL PnIj 00:00: Medical Branch [facility] 2021-08 Yes weekly. Unive rs 4.5 mg/0.5 2-12 ity of mL PnIj 00:00: Medical Branch [facility] 2021-08 Yes weekly. Unive rs 4.5 mg/0.5 2-12 ity of mL PnIj 00:00: Medical Branch [facility] 2021-08 Yes weekly. Unive rs 4.5 mg/0.5 2-12 ity of mL PnIj 00:00: Medical Branch [facility] 2021-08 Yes weekly. Unive rs 4.5 mg/0.5 2-12 ity of mL PnIj 00:00: [facility] 2021-08 Yes weekly. Unive rs 4.5 mg/0.5 2-12 ity of mL PnIj 00:00: [facility] 2021-08 Yes weekly. Unive rs 4.5 mg/0.5 2-12 ity of mL PnIj 00:00: [facility] 2021-08 Yes weekly. Unive rs 4.5 mg/0.5 2-12 ity of mL PnIj 00:00: [facility] 2021-08 Yes weekly. Unive rs 4.5 mg/0.5 2-12 ity of mL PnIj 00:00: [facility] 2021-08 Yes weekly. Unive rs 4.5 mg/0.5 2-12 ity of mL PnIj 00:00: [facility] 2021-08 Yes weekly. Unive rs 4.5 mg/0.5 2-12 ity of mL PnIj 00:00: [facility] 2021-08 Yes weekly. Unive rs 4.5 mg/0.5 2-12 ity of mL PnIj 00:00: [facility] 2021-08 Yes weekly. Unive rs 4.5 mg/0.5 2-12 ity of mL PnIj 00:00: [facility] 2021-08 Yes weekly. Unive rs 4.5 mg/0.5 2-12 ity of mL PnIj 00:00: [facility] 2021-08 Yes weekly. Unive rs 4.5 mg/0.5 2-12 ity of mL PnIj 00:00: [facility] 2021-08 Yes weekly. Unive rs 4.5 mg/0.5 2-12 ity of mL PnIj 00:00: [facility] 2021-08 Yes weekly. Unive rs 4.5 mg/0.5 2-12 ity of mL PnIj 00:00: [facility] 2021-08 Yes weekly. Unive rs 4.5 mg/0.5 2-12 ity of mL PnIj 00:00: Medical Branch ULICITY 2021-08 Yes weekly. Unive rs 4.5 mg/0.5 2-12 ity of mL PnIj 00:00: [facility] Branch ULICITY 2021-08 Yes weekly. Unive rs 4.5 mg/0.5 2-12 ity of mL PnIj 00:00: [facility] Branch ULICITY 2021- Yes weekly. Unive rs 4.5 mg/0.5 2-12 ity of mL PnIj 00:00: [place] [facility] 2021-08 Yes weekly. Unive rs 4.5 mg/0.5 2-12 ity of mL PnIj 00:00: [place] [facility] Branch Augmentin Augmentin 2021-08- No 1{table BID Augmentin 500-125 MG 500-125 MG 0-13 10-20 t} 500-125 MG 00:00: 00:00 00 :00 FreeStyle FreeStyle 2020-0 No FreeStyle Sher[place] 14 Sherrell 14 7-02 Sherrell 14 Day Sensor Day Sensor 00:00: Day Sensor - - 00 - FreeStyle FreeStyle 2020-0 No QD FreeStyle [place] 14 Sherrell 14 7-02 Sherrell 14 Day [place] Day [place]burn 00:00: Day [place] - - 00 - FreeStyle FreeStyle 2020-0 No FreeStyle [place] 14 Sherrell 14 7-02 Sherrell 14 Day Sensor Day Sensor 00:00: Day Sensor - - 00 - FreeStyle FreeStyle 2020-0 No QD FreeStyle [place] 14 Sherrell 14 7-02 Sherrell 14 Day [place] Day [place] 00:00: Day [place] - - 00 - FreeStyle FreeStyle 2020-0 No FreeStyle [place] 14 Sherrell 14 7-02 Sherrell 14 Day Sensor Day Sensor 00:00: Day Sensor - - 00 - FreeStyle FreeStyle 2020-0 No QD FreeStyle [place] 14 Sherrell 14 7-02 Sherrell 14 Day [place] Day [place] 00:00: Day [place] - - 00 - FreeStyle FreeStyle 2020-0 No QD FreeStyle [place] 14 Sherrell 14 7-02 Sherrell 14 Day [place] Day [place] 00:00: Day [place] - - 00 - FreeStyle FreeStyle 2021-0 No FreeStyle [place] 14 Sherrell 14 7-02 Sherrell 14 Day Sensor Day Sensor 00:00: Day Sensor - - 00 - FreeStyle FreeStyle 1-0 No QD FreeStyle [place] 14 Sherrell 14 7-02 Sherrell 14 Day [place] Day [place] 00:00: Day [place] - - 00 - FreeStyle FreeStyle 1-0 No FreeStyle [place] 14 Sherrell 14 7-02 Sherrell 14 Day Sensor Day Sensor 00:00: Day Sensor - - 00 - FreeStyle FreeStyle 1-0 No QD FreeStyle [place] 14 Sherrell 14 7-02 Sherrell 14 Day [place] Day [place] 00:00: Day [place] - - 00 - FreeStyle FreeStyle 1-0 No FreeStyle [place] 14 Sherrell 14 7-02 Sherrell 14 Day Sensor Day Sensor 00:00: Day Sensor - - 00 - FreeStyle FreeStyle 1-0 No QD FreeStyle [place] 14 Sherrell 14 7-02 Sherrell 14 Day [place] Day [place] 00:00: Day [place] - - 00 - FreeStyle FreeStyle 1-0 No FreeStyle [place] 14 Sherrell 14 7-02 Sherrell 14 Day Sensor Day Sensor 00:00: Day Sensor - - 00 - FreeStyle FreeStyle 1-0 No QD FreeStyle [place] 14 Sherrell 14 7-02 Sherrell 14 Day [place] Day [place] 00:00: Day [place] - - 00 - FreeStyle FreeStyle 1-0 No FreeStyle [place] 14 Sherrell 14 7-02 Sherrell 14 Day Sensor Day Sensor 00:00: Day Sensor - - 00 - FreeStyle FreeStyle 1-0 No FreeStyle [place] 14 Sherrell 14 7-02 Sherrell 14 Day Sensor Day Sensor 00:00: Day Sensor - - 00 - FreeStyle FreeStyle 1-0 No QD FreeStyle [place] 14 Sherrell 14 7-02 Sherrell 14 Day [place] Day [place] 00:00: Day [place] - - 00 - FreeStyle FreeStyle 2021-0 No QD FreeStyle [place] 14 Sherrell 14 7-02 Sherrell 14 Day [place] Day [place] 00:00: Day [place] - - 00 - FreeStyle FreeStyle 2021-0 No FreeStyle [place] 14 Sherrell 14 7-02 Sher[place] 14 Day Sensor Day Sensor 00:00: Day Sensor - - 00 - FreeStyle FreeStyle No QD FreeStyle [place] 14 Sherrell 14 7-02 Sherrell 14 Day [place] Day [place] 00:00: Day [place] - - 00 - FreeStyle FreeStyle No FreeStyle [place] 14 Sherrell 14 7-02 Sher[place] 14 Day Sensor Day Sensor 00:00: Day Sensor - - 00 - FreeStyle FreeStyle No FreeStyle [place] 14 Sherrell 14 7-02 Sherrell 14 Day Sensor Day Sensor 00:00: Day Sensor - - 00 - FreeStyle FreeStyle No QD FreeStyle [place] 14 Sherrell 14 7-02 Sherrell 14 Day [place] Day [place] 00:00: Day [place] - - 00 - [place] Yes [id number] TAKE 1 [facility] 2.5-25-1 mg 1-28 [id number] TABLET BY s t tablet 00:00: MOUTH [facility] 00 EVERY DAY l [place] 0 Yes [id number] TAKE 1 [facility] 2.5-25-1 mg 1-28 [id number] TABLET BY s t tablet 00:00: MOUTH [facility] 00 EVERY DAY l [place] 0 Yes [id number] TAKE 1 [facility] 2.5-25-1 mg 1-28 [id number] TABLET BY s t tablet 00:00: MOUTH [facility] 00 EVERY DAY l [place] 0 Yes [id number] TAKE 1 [facility] 2.5-25-1 mg 1-28 [id number] TABLET BY s t tablet 00:00: MOUTH [facility] 00 EVERY DAY l [place] 0 Yes [id number] TAKE 1 [facility] 2.5-25-1 mg 1-28 [id number] TABLET BY s t tablet 00:00: MOUTH [facility] 00 EVERY DAY l [place] 0 Yes [id number] TAKE 1 [facility] 2.5-25-1 mg 1-28 [id number] TABLET BY s t tablet 00:00: MOUTH [facility]osp[facility] 00 EVERY DAY l nebivolol 2019-1 Yes 10mg QD Take 10 mg [facility] (BYSTOLIC) 2-[address] 10 MG 13:46: every Hospita tablet 53 evening. l CLOPIDOGREL 2019-08 Yes 75mg QD Take 75 mg [facility] BISULFATE 2-[address] (CLOPIDOGRE 13:46: daily. [facility] ORAL) 53 l rosuvastati 2019-08 Yes 10mg QD Take 10 mg [facility] n (CRESTOR) 2-[address] 10 MG 13:46: nightly. Hospita tablet 53 l cetirizine 2019-08 Yes 10mg QD Take 10 mg [facility] (ZyrTEC) 10 2-[address] MG tablet 13:46: nightly. [facility] 53 l aspirin 2019-08 Yes 81mg QD Take 81 mg [facility] (ECOTRIN) 2-[address] 81 MG 13:46: nightly. Hospita enteric 53 l coated tablet insulin 2019-08 Yes 40U QD Inject 40 [facility] GLARGINE 2-[address] (LANTUS) 13:46: under the [facility] 100 unit/mL 53 skin l injection nightly. (vial) UNABLE TO 2019-08 Yes [place] Metho di FIND 2-09 OTC - [address] 13:46: QHS Hospita 53 l ascorbic 2019-08 Yes 1000mg QD Take 1,000 M [facility] acid, 2-[address] vitamin C, 13:46: mouth Hospit a (vitamin C) 53 daily. l 1000 MG tablet vitamin E 2019-08 Yes 400U QD Take 400 Meth [facility]i 400 UNIT 2-[address] capsule 13:46: mouth Hospita 53 daily. l glyburide-m 2019-08 Yes 2{tbl} Q.5D Take 2 [facility] etformin 2-[address] (GLUCOVANCE 13:46: mouth 2 [facility] ) 5-500 mg 53 (two) l per tablet times a day with meals. dulaglutide 2019-08 Yes .75mg Q1W Inject [facility] (TRULICITY) 2-[address] 0.75 mg/0.5 13:46: under the H [facility]spita mL pen 53 skin every l injector 7 days. sundays INSULIN 2019-08 Yes 15U [id number] Inject 15 [facility] LISPRO 2-[id number] (HUMALOG 13:46: 3D under the [facility] SUBQ) 53 skin 3 l (three) times a day. losartan 2019-08 Yes 100mg QD Take 100 [facility] (COZAAR) 2-[address] 100 MG 13:46: mouth Hospita tablet 53 every l morning. nebivolol 2019-08 Yes 10mg QD Take 10 mg [facility] (BYSTOLIC) 2-[address] 10 MG 13:46: every Hospita tablet 53 evening. l CLOPIDOGREL 2019-08 Yes 75mg QD Take 75 mg [facility] BISULFATE 2-[address] (CLOPIDOGRE 13:46: daily. [facility] L ORAL) 53 l rosuvastati 2019-08 Yes 10mg QD Take 10 mg [facility] n (CRESTOR) 2-[address] 10 MG 13:46: nightly. Hospita tablet 53 l cetirizine 2019-08 Yes 10mg QD Take 10 mg M [facility]i (ZyrTEC) 10 2-[address] MG tablet 13:46: nightly. [facility] 53 l aspirin 2019-08 Yes 81mg QD Take 81 mg [facility] (ECOTRIN) 2-[address] 81 MG 13:46: nightly. Hospita enteric 53 l coated tablet insulin 2019-08 Yes 40U QD Inject 40 [facility] di GLARGINE 2-[address] (LANTUS) 13:46: under the [facility] 100 unit/mL 53 skin l injection nightly. (vial) UNABLE TO 2019-08 Yes [facility] Metho di FIND 2-09 OTC - [address] 13:46: QHS [facility]ospita 53 l ascorbic 2019-08 Yes 1000mg QD Take 1,000 M ethodi acid, 2-[address] vitamin C, 13:46: mouth Hospit a (vitamin C) 53 daily. l 1000 MG tablet vitamin E 2019-08 Yes 400U QD Take 400 [facility]i 400 UNIT 2-[address] capsule 13:46: mouth Hospita 53 daily. l glyburide-m 2019-08 Yes 2{tbl} Q.5D Take 2 [facility] etformin 2-[address] (GLUCOVANCE 13:46: mouth 2 [facility] ) 5-500 mg 53 (two) l per tablet times a day with meals. dulaglutide 2019-08 Yes .75mg Q1W Inject [facility] (TRULICITY) 2-[address] 0.75 mg/0.5 13:46: under the H [facility]spita mL pen 53 skin every l injector 7 days. sundays INSULIN 2019- Yes 15U [id number] Inject 15 [facility] LISPRO 2-[id number] (HUMALOG 13:46: 3D under the [facility] SUBQ) 53 skin 3 l (three) times a day. losartan 2019-08 Yes 100mg QD Take 100 Meth [facility] (COZAAR) 2-[address] 100 MG 13:46: mouth Hospita tablet 53 every l morning. nebivolol 2019-08 Yes 10mg QD Take 10 mg [facility] (BYSTOLIC) 2-[address] 10 MG 13:46: every Hospita tablet 53 evening. l CLOPIDOGREL 2019-08 Yes 75mg QD Take 75 mg [facility] BISULFATE 2-[address] (CLOPIDOGRE 13:46: daily. [facility] L ORAL) 53 l rosuvastati 2019-08 Yes 10mg QD Take 10 mg [facility] n (CRESTOR) 2-[address] 10 MG 13:46: nightly. Hospita tablet 53 l cetirizine 2019-08 Yes 10mg QD Take 10 mg M [facility]i (ZyrTEC) 10 2-[address] MG tablet 13:46: nightly. [facility] 53 l aspirin 2019-08 Yes 81mg QD Take 81 mg [facility] (ECOTRIN) 2-[address] 81 MG 13:46: nightly. [facility]ospita enteric 53 l coated tablet insulin 2019-08 Yes 40U QD Inject 40 [facility] di GLARGINE 2-[address] (LANTUS) 13:46: under the [facility] 100 unit/mL 53 skin l injection nightly. (vial) UNABLE TO 2019-08 Yes [facility] Metho di FIND 2-09 OTC - [address] 13:46: QHS [facility]ospita 53 l ascorbic 2019- Yes 1000mg QD Take 1,000 M [facility]i acid, 2-[address] vitamin C, 13:46: mouth Hospit a (vitamin C) 53 daily. l 1000 MG tablet vitamin E 2019-08 Yes 400U QD Take 400 [facility] 400 UNIT 2-[address] capsule 13:46: mouth Hospita 53 daily. l glyburide-m 2019-08 Yes 2{tbl} Q.5D Take 2 [facility] etformin 2-[address] (GLUCOVANCE 13:46: mouth 2 [facility] ) 5-500 mg 53 (two) l per tablet times a day with meals. dulaglutide 2019-08 Yes .75mg Q1W Inject [facility] (TRULICITY) 2-[address] 0.75 mg/0.5 13:46: under the H [facility]spita mL pen 53 skin every l injector 7 days. sundays INSULIN 2019-08 Yes 15U [id number] Inject 15 [facility] LISPRO 2-[id number] (HUMALOG 13:46: 3D under the [facility] SUBQ) 53 skin 3 l (three) times a day. losartan 2019-08 Yes 100mg QD Take 100 [facility] (COZAAR) 2-[address] 100 MG 13:46: mouth Hospita tablet 53 every l morning. nebivolol 2019-08 Yes 10mg QD Take 10 mg [facility] (BYSTOLIC) 2-[address] 10 MG 13:46: every Hospita tablet 53 evening. l CLOPIDOGREL 2019-08 Yes 75mg QD Take 75 mg [facility] BISULFATE 2-[address] (CLOPIDOGRE 13:46: daily. [facility] L ORAL) 53 l rosuvastati 2019-08 Yes 10mg QD Take 10 mg [facility] n (CRESTOR) 2-[address] 10 MG 13:46: nightly. Hospita tablet 53 l cetirizine 2019-08 Yes 10mg QD Take 10 mg M [facility]i (ZyrTEC) 10 2-[address] MG tablet 13:46: nightly. [facility] 53 l aspirin 2019-08 Yes 81mg QD Take 81 mg [facility] (ECOTRIN) 2-[address] 81 MG 13:46: nightly. Hospita enteric 53 l coated tablet insulin 2019-08 Yes 40U QD Inject 40 Meth[facility] di GLARGINE 2-[address] (LANTUS) 13:46: under the [facility] 100 unit/mL 53 skin l injection nightly. (vial) UNABLE TO 2019-08 Yes [facility] Metho di FIND 2-09 OTC - [address] 13:46: QHS [facility]ospita 53 l ascorbic 2019-08 Yes 1000mg QD Take 1,000 M [facility]i acid, 2-[address] vitamin C, 13:46: mouth Hospit a (vitamin C) 53 daily. l 1000 MG tablet vitamin E 2019-08 Yes 400U QD Take 400 [facility] 400 UNIT 2-[address] capsule 13:46: mouth Hospita 53 daily. l glyburide-m 2019-08 Yes 2{tbl} Q.5D Take 2 [facility] etformin 2-[address] (GLUCOVANCE 13:46: mouth 2 [facility] ) 5-500 mg 53 (two) l per tablet times a day with meals. dulaglutide 2019-08 Yes .75mg Q1W Inject [facility] (TRULICITY) 2-[address] 0.75 mg/0.5 13:46: under the H [facility]spita mL pen 53 skin every l injector 7 days. sundays INSULIN 2019-08 Yes 15U [id number] Inject 15 [facility] LISPRO 2-[id number] (HUMALOG 13:46: 3D under the [facility] SUBQ) 53 skin 3 l (three) times a day. losartan 2019-08 Yes 100mg QD Take 100 [facility] (COZAAR) 2-[address] 100 MG 13:46: mouth Hospita tablet 53 every l morning. nebivolol 2019-08 Yes 10mg QD Take 10 mg [facility] (BYSTOLIC) 2-[address] 10 MG 13:46: every Hospita tablet 53 evening. l CLOPIDOGREL 2019-08 Yes 75mg QD Take 75 mg [facility] BISULFATE 2-[address] (CLOPIDOGRE 13:46: daily. [facility] L ORAL) 53 l glyburide-m 2019-08 Yes 2{tbl} Q.5D Take 2 [facility] etformin 2-[address] (GLUCOVANCE 13:46: mouth 2 [facility] ) 5-500 mg 53 (two) l per tablet times a day with meals. dulaglutide 2019-08 Yes .75mg Q1W Inject [facility] (TRULICITY) 2-[address] 0.75 mg/0.5 13:46: under the H [facility]spita mL pen 53 skin every l injector 7 days. sundays INSULIN 2019-08 Yes 15U [id number] Inject 15 [facility] LISPRO 2-[id number] (HUMALOG 13:46: 3D under the [facility] SUBQ) 53 skin 3 l (three) times a day. losartan 2019-08 Yes 100mg QD Take 100 [facility] (COZAAR) 2-[address] 100 MG 13:46: mouth Hospita tablet 53 every l morning. nebivolol 2019-08 Yes 10mg QD Take 10 mg [facility] (BYSTOLIC) 2-[address] 10 MG 13:46: every Hospita tablet 53 evening. l CLOPIDOGREL 2019-08 Yes 75mg QD Take 75 mg [facility] BISULFATE 2-[address] (CLOPIDOGRE 13:46: daily. [facility] L ORAL) 53 l rosuvastati 2019-08 Yes 10mg QD Take 10 mg [facility] n (CRESTOR) 2-[address] 10 MG 13:46: nightly. Hospita tablet 53 l cetirizine 2019-08 Yes 10mg QD Take 10 mg M [facility]i (ZyrTEC) 10 2-[address] MG tablet 13:46: nightly. [facility] 53 l aspirin 2019-08 Yes 81mg QD Take 81 mg [facility] (ECOTRIN) 2-[address] 81 MG 13:46: nightly. [facility]ospita enteric 53 l coated tablet insulin 2019-08 Yes 40U QD Inject 40 [facility] GLARGINE 2-[address] (LANTUS) 13:46: under the [facility] 100 unit/mL 53 skin l injection nightly. (vial) UNABLE TO 2019-08 Yes [facility] Metho di FIND 2-09 OTC - [address] 13:46: QHS [facility]ospita 53 l ascorbic 2019-08 Yes 1000mg QD Take 1,000 [facility]i acid, 2-[address] vitamin C, 13:46: mouth Hospit a (vitamin C) 53 daily. l 1000 MG tablet vitamin E 2019-08 Yes 400U QD Take 400 [facility] 400 UNIT 2-[address] capsule 13:46: mouth Hospita 53 daily. l rosuvastati 2019-08 Yes 10mg QD Take 10 mg [facility] n (CRESTOR) 2-[address] 10 MG 13:46: nightly. Hospita tablet 53 l cetirizine 2019-08 Yes 10mg QD Take 10 mg [facility] (ZyrTEC) 10 2-[address] MG tablet 13:46: nightly. [facility] 53 l aspirin 2019-08 Yes 81mg QD Take 81 mg [facility] (ECOTRIN) 2-[address] 81 MG 13:46: nightly. [facility]ospita enteric 53 l coated tablet insulin 2019-08 Yes 40U QD Inject 40 [facility] di GLARGINE 2-[address] (LANTUS) 13:46: under the [facility] 100 unit/mL 53 skin l injection nightly. (vial) UNABLE TO 2019-08 Yes [facility] Metho di FIND 2-09 OTC - [address] 13:46: QHS [facility]ospita 53 l ascorbic 2019-08 Yes 1000mg QD Take 1,000 [facility]i acid, 2-[address] vitamin C, 13:46: mouth Hospit a (vitamin C) 53 daily. l 1000 MG tablet vitamin E 2019-08 Yes 400U QD Take 400 [facility] 400 UNIT 2-[address] capsule 13:46: mouth [facility]ospita 53 daily. l glyburide-m 2019-08 Yes 2{tbl} Q.5D Take 2 [facility] etformin 2-[address] (GLUCOVANCE 13:46: mouth 2 [facility] ) 5-500 mg 53 (two) l per tablet times a day with meals. dulaglutide 2019-08 Yes .75mg Q1W Inject [facility] (TRULICITY) 2-[address] 0.75 mg/0.5 13:46: under the H ospita mL pen 53 skin every l injector 7 days. sundays INSULIN 2019-08 Yes 15U [id number] Inject 15 [facility] LISPRO 2-[id number] (HUMALOG 13:46: 3D under the [facility] SUBQ) 53 skin 3 l (three) times a day. losartan 2019-08 Yes 100mg QD Take 100 [facility] (COZAAR) 2-[address] 100 MG 13:46: mouth Hospita tablet 53 every l morning. primidone 2019-08 Yes [id number] Wk 1: 1/2 [facility] (MYSOLINE) 2-[address] 50 MG 00:00: bedtime Wk Hospit a tablet 00 2: 1 l tablet at bedtime Wk 3: 1 tablet twice a day Wk 4: 1 tablet three times a day and continue. primidone 2019-08 Yes [id number] Wk : 08/16 [facility] (MYSOLINE) 2-[address] 50 MG 00:00: bedtime [facility] a tablet 00 2: 1 l tablet at bedtime Wk 3: 1 tablet twice a day Wk 4: 1 tablet three times a day and continue. primidone 2019-08 Yes [id number] Wk : 08/16 [facility] (MYSOLINE) 2-[address] 50 MG 00:00: [facility] a tablet 00 2: 1 l tablet at bedtime Wk 3: 1 tablet twice a day Wk 4: 1 tablet three times a day and continue. primidone 2019-08 Yes [id number] Wk : 08/16 [facility] (MYSOLINE) 2-[address] 50 MG 00:00: [facility] a tablet 00 2: 1 l tablet at bedtime Wk 3: 1 tablet twice a day Wk 4: 1 tablet three times a day and continue. primidone 2019-08 Yes [id number] Wk : 08/16 [facility] (MYSOLINE) 2-[address] 50 MG 00:00: [facility] a tablet 00 2: 1 l tablet at bedtime Wk 3: 1 tablet twice a day Wk 4: 1 tablet three times a day and continue. primidone 2019-08 Yes [id number] Wk : 08/16 [facility] (MYSOLINE) 2-[address] 50 MG 00:00: [facility] a tablet 00 2: 1 l tablet at bedtime Wk 3: 1 tablet twice a day Wk 4: 1 tablet three times a day and continue. insulin 2019-08 Yes 35U QD Inject 35 [facility] gl[facility] ([facility]) 16:20: subcutaneo Med ical 100 unit/mL 07 [facility] injection nightly Use as directed . insulin 2019-08 Yes 14U Inject 14 [facility] lispro [facility] (HUMALOG) 16:20: subcutaneo Me dical 100 unit/mL 07 [facility] In[facility]n (three) times daily before meals . glyBURIDE-m 2019-08 Yes 1{tbl} Take [address] etFORMIN [facility]-04 [facility] (GLUCOVANCE 16:20: mouth 2 Med ical ) 5-500 mg 07 (two) Center per tablet times daily with breakfast and dinner . cetirizine 2019-08 Yes 10mg QD Take [address] (ZYRTEC) 10 1-04 by mouth [facility] tablet 16:20: daily. Medica l [address] [place] [address] aspirin 81 2019-08 Yes 81mg QD Take [address] MG EC 1-04 by [facility] tablet 16:20: daily. [address] insulin 2019-08 Yes 35U QD Inject 35 [facility] gl[facility]ine [facility]-04 [facility] (LANTUS) 16:20: subcutaneo Med ical 100 unit/mL 07 usly Center injection nightly Use as directed . insulin 2019-08 Yes 14U Inject 14 [facility] lispro [facility]-04 [facility] (HUMALOG) 16:20: subcutaneo Me dical 100 unit/mL 07 usly 3 Center InPn (three) times daily before meals . glyBURIDE-m 2019-08 Yes 1{tbl} Take [address] etFORMIN 1-04 tablet by [facility] (GLUCOVANCE 16:20: mouth 2 Med ical ) 5-500 mg 07 (two) Center per tablet times daily with breakfast and dinner . cetirizine 2019-08 Yes 10mg QD Take [address] (ZYRTEC) 10 1-04 by mouth [facility] tablet 16:20: [facility]. [facility] [address] aspirin 81 2019-08 Yes 81mg QD Take [address] MG EC 1-04 by [facility] tablet 16:20: daily. [address] insulin 2019-08 Yes 35U QD Inject 35 [facility] glargine [facility]-04 [facility] (LANTUS) 16:20: subcutaneo Med ical 100 unit/mL 07 usly Center injection nightly Use as directed . insulin 2019-08 Yes 14U Inject 14 [facility] lispro 1-04 [facility] (HUMALOG) 16:20: subcutaneo Me dical 100 unit/mL 07 usly 3 Center InPn (three) times daily before meals . glyBURIDE-m 2019-08 Yes 1{tbl} Take [address] etFORMIN 1-04 tablet by [facility] (GLUCOVANCE 16:20: mouth 2 Med ical ) 5-500 mg 07 (two) Center per tablet times daily with breakfast and dinner . cetirizine 2019-08 Yes 10mg QD Take [address] (ZYRTEC) 10 1-04 by mouth [facility] MG tablet 16:20: daily. Medica l [address] [place] [address] aspirin 81 2019-08 Yes 81mg QD Take [address] MG EC 1-04 by [facility] tablet 16:20: daily. [address] insulin 2019-08 Yes 35U QD Inject 35 [facility] gl[facility] (LANTUS) 16:20: subcutaneo Med ical 100 unit/mL 07 usly Center injection nightly Use as directed . insulin 2019-08 Yes 14U Inject 14 [facility] lispro [facility] (HUMALOG) 16:20: subcutaneo Me dical 100 unit/mL 07 usly 3 Center InPn (three) times daily before meals . glyBURIDE-m 2019-08 Yes 1{tbl} Take [address] etFORMIN 1-04 tablet [facility] (GLUCOVANCE 16:20: mouth 2 Med ical ) 5-500 mg 07 (two) Center per tablet times daily with breakfast and dinner . cetirizine 2019-08 Yes 10mg QD Take [address] (ZYRTEC) 10 1-04 by mouth [facility] tablet 16:20: [facility]. [facility] [address] aspirin 81 2019-08 Yes 81mg QD Take [address] MG EC 1-04 by [facility] tablet 16:20: daily. [address] insulin 2019-08 Yes 35U QD Inject 35 [facility] gl[facility]ine [facility] (LANTUS) 16:20: subcutaneo Med ical 100 unit/mL 07 usly Center injection nightly Use as directed . insulin 2019-08 Yes 14U Inject 14 [facility] lispro [facility] (HUMALOG) 16:20: subcutaneo Me dical 100 unit/mL 07 usly 3 Center InPn (three) times daily before meals . glyBURIDE-m 2019-08 Yes 1{tbl} Take [address] etFORMIN 1-04 tablet [facility] (GLUCOVANCE 16:20: mouth 2 Med ical ) 5-500 mg 07 (two) Center per tablet times daily with breakfast and dinner . cetirizine 2019- Yes 10mg QD Take [address] (ZYRTEC) 10 -04 by mouth [facility] MG tablet 16:20: daily. Medica l [address] [place] aspirin 81 2019- Yes 81mg QD Take [address] MG EC 04 by [facility] tablet 16:20: daily. Medical [address] [place] [address] TRULICITY 2020-0 Yes 1.5mg Q7D 1.[address] [facility] 1.5 mg/0.5 9-21 Subconjunc [facility] es mL PnIj 00:00: tival Medical 00 route once Center a week . DULoxetine 2019-0 Yes 60mg QD Take [address] (CYMBALTA) 9-21 by [facility] 30 MG 00:00: nightly . Medical capsule 00 [place] rosuvastati 2019-0 Yes 10mg QD Take [address] [facility] (CRESTOR) 9-21 by mouth [facility] 10 MG 00:00: daily . Medical tablet 00 [place] TRULICITY 2019-0 Yes 1.5mg Q7D 1.[address] [facility] 1.5 mg/0.5 9-21 Subconjunc [facility] es mL PnIj 00:00: tival Medical 00 route once Center a week . DULoxetine 2019-0 Yes 60mg QD Take [address] (CYMBALTA) 9-21 by [facility] 30 MG 00:00: nightly . Medical capsule 00 [place] rosuvastati 2020-0 Yes 10mg QD Take [address] [facility] (CRESTOR) 9-21 by mouth [facility] 10 MG 00:00: daily . Medical tablet 00 [place] TRULICITY 2020-0 Yes 1.5mg Q7D 1.[address] [facility] 1.5 mg/0.5 9-21 Subconjunc [facility] es mL PnIj 00:00: tival Medical 00 route once Center a week . DULoxetine 2019-0 Yes 60mg QD Take [address] (CYMBALTA) 9-21 [facility] 30 MG 00:00: nightly . Medical capsule 00 [place] rosuvastati 2020-0 Yes 10mg QD Take [address] [facility] (CRESTOR) 9-21 by mouth [facility] 10 MG 00:00: daily . Medical tablet 00 [place] TRULICITY 2020-0 Yes 1.5mg Q7D 1.[address] [facility] 1.5 mg/0.5 9-21 Subconjunc [facility] es mL PnIj 00:00: tival Medical 00 route once Center a week . DULoxetine 2020-0 Yes 60mg QD Take [address] (CYMBALTA) 9-21 [facility] 30 MG 00:00: nightly . Medical capsule 00 [place] rosuvastati 2020-0 Yes 10mg QD Take [address] [facility] (CRESTOR) 9-21 by mouth [facility] 10 MG 00:00: daily . Medical tablet 00 [place] TRULICITY 2020-0 Yes 1.5mg Q7D 1.[address] [facility] 1.5 mg/0.5 9-21 Subconjunc [facility] es mL PnIj 00:00: tival Medical 00 route once Center a week . DULoxetine 2020-0 Yes 60mg QD Take [address] (CYMBALTA) 9-21 [facility] 30 MG 00:00: nightly . Medical capsule 00 [place] rosuvastati 2020-0 Yes 10mg QD Take [address] [facility] (CRESTOR) 9-21 by mouth [facility] 10 MG 00:00: daily . Medical tablet 00 [place] clopidogreL 2020-0 Yes 75mg QD Take [address] [facility] (PLAVIX) 75 9-18 by mouth [facility] mg tablet 00:00: daily . Medic al 00 [place] clopidogreL 2020-0 Yes 75mg QD Take [address] [facility] (PLAVIX) 75 9-18 by mouth [facility] mg tablet 00:00: daily . Medic al 00 [place] clopidogreL 2020-0 Yes 75mg QD Take [address] [facility] (PLAVIX) 75 9-18 by mouth [facility] mg tablet 00:00: daily . Medic al 00 [place] clopidogreL 2020-0 Yes 75mg QD Take [address] [facility] (PLAVIX) 75 9-18 by mouth [facility] mg tablet 00:00: daily . Medic al 00 [place] clopidogreL 2020-0 Yes 75mg QD Take [address] [facility] (PLAVIX) 75 9-18 by mouth [facility] mg tablet 00:00: daily . Medic al 00 [place] FOLBEE 2020-0 Yes 1{tbl} QD Take [address] [facility] 2.5-25-1 mg 8-11 tablet by [facility] es Tab tablet 00:00: mouth Medica l 00 daily. [place] FOLBEE 2020-0 Yes 1{tbl} QD Take [address] [facility] 2.5-25-1 mg 8-11 tablet by [facility] es Tab tablet 00:00: mouth Medica l 00 daily. [place] FOLBEE 2019-0 Yes 1{tbl} QD Take [address] [facility] 2.5-25-1 mg 8-11 tablet by [facility] es Tab tablet 00:00: mouth Medica l 00 daily. [place] FOLBEE 2019-0 Yes 1{tbl} QD Take [address] [facility] [address] 2.5-25-1 mg 8-11 tablet by [facility] es Tab tablet 00:00: mouth Medica l 00 daily. [place] FOLBEE 2019-0 Yes 1{tbl} QD Take [address] [facility] [address] 2.5-25-1 mg 8-11 tablet by [facility] es Tab tablet 00:00: mouth Medica l 00 daily. [place] DEXILANT 60 2019-0 Yes 1{capsu QD Take [address] mg capsule 8-07 le} capsule by [facility] es 00:00: mouth Medical 00 daily. [place] DEXILANT 60 2019-0 Yes 1{capsu QD Take [address] mg capsule 8-07 le} capsule by [facility] es 00:00: mouth Medical 00 daily. [place] DEXILANT 60 2019-0 Yes 1{capsu QD Take [address] mg capsule 8-07 le} capsule by [facility] es 00:00: mouth Medical 00 daily. [place] DEXILANT 60 2019-0 Yes 1{capsu QD Take [address] mg capsule 8-07 le} capsule by [facility] es 00:00: mouth Medical 00 daily. [place] DEXILANT 60 2019-0 Yes 1{capsu QD Take [address] mg capsule 8-07 le} capsule by [facility] es 00:00: mouth Medical 00 daily. [place] hydroCHLORO 2019-0 Yes 25mg QD Take [address] [facility] thiazide 7-07 by mouth [facility] (HYDRODIURI 00:00: daily . Med ical L) 25 MG 00 [place] tablet losartan 2019-0 Yes 100mg QD Take [address] [facility] (COZAAR) 7-07 mg by [facility] 100 MG 00:00: mouth Medical tablet 00 daily . [place] BYSTOLIC 20 2020-0 Yes 20mg QD Take [address] [facility] mg Tab 7-07 by [facility] 00:00: daily . Medical 00 [place] hydroCHLORO 2020-0 Yes 25mg QD Take [address] [facility] thiazide 7-07 by mouth [facility] (HYDRODIURI 00:00: daily . Med ical L) 25 MG 00 Center tablet losartan 2020-0 Yes 100mg QD Take [address] [facility] (COZAAR) 7-07 mg by [facility] 100 MG 00:00: mouth Medical tablet 00 daily . [place] BYSTOLIC 20 2020-0 Yes 20mg QD Take [address] [facility] mg Tab 7-07 by [facility] 00:00: daily . Medical 00 [place] hydroCHLORO 2020-0 Yes 25mg QD Take [address] [facility] thiazide 7-07 by mouth [facility] (HYDRODIURI 00:00: daily . Med ical L) 25 MG 00 Center tablet losartan 2020-0 Yes 100mg QD Take [address] [facility] (COZAAR) 7-07 mg by [facility] 100 MG 00:00: mouth Medical tablet 00 daily . [place] BYSTOLIC 20 2020-0 Yes 20mg QD Take [address] [facility] mg Tab 7-07 by [facility] 00:00: daily . Medical 00 [place] hydroCHLORO 2020-0 Yes 25mg QD Take [address] [facility] thiazide 7-07 by mouth [facility] (HYDRODIURI 00:00: daily . Med ical L) 25 MG 00 Center tablet losartan 2020-0 Yes 100mg QD Take [address] [facility] [address] (COZAAR) 7-07 mg by [facility] 100 MG 00:00: mouth Medical tablet 00 daily . [place] BYSTOLIC 20 2020-0 Yes 20mg QD Take [address] [facility] mg Tab 7-07 by [facility] 00:00: daily . Medical 00 [place] hydroCHLORO 2020-0 Yes 25mg QD Take [address] [facility] thiazide 7-07 by mouth [facility] (HYDRODIURI 00:00: daily . Med ical L) 25 MG 00 Center tablet losartan 2020-0 Yes 100mg QD Take [address] [address] (COZAAR) 7-07 mg by [facility] 100 MG 00:00: mouth Medical tablet 00 daily . [place] BYSTOLIC 20 2020-0 Yes 20mg QD Take [address] [facility] mg Tab 7-07 by [facility] 00:[facility]: daily . Medical 00 [place] DULoxetine 2020-0 Yes [id number] Take 2 M ethodi (Cymbalta) 6-[address] 30 MG 00:00: night x 1 [facility] capsule [facility] month, l then increase to 3 tabs at night and continue DULoxetine 2020-0 Yes [id number] Take 2 M ethodi (Cymbalta) 6-[address] 30 MG 00:00: night x 1 [facility] capsule 00 month, l then increase to 3 tabs at night and continue DULoxetine 2020-0 Yes [id number] Take 2 M [facility]i (Cymbalta) 6-[address] 30 MG 00:00: night x 1 [facility] capsule 00 month, l then increase to 3 tabs at night and continue DULoxetine 2020-0 Yes [id number] Take 2 M ethodi (Cymbalta) 6-[address] 30 MG 00:00: night x 1 [facility] capsule 00 month, l then increase to 3 tabs at night and continue DULoxetine 2020-0 Yes [id number] Take 2 M [facility]i (Cymbalta) 6-[address] 30 MG 00:00: night x 1 [facility] capsule 00 month, l then increase to 3 tabs at night and continue DULoxetine 2020-0 Yes [id number] Take 2 M [facility]i (Cymbalta) 6-[address] 30 MG 00:00: night x 1 [facility] capsule 00 month, l then increase to 3 tabs at night and continue hydroCHLORO 2019-0 Yes 25mg QD Take 25 mg [facility] thiazide 9-[address] (HYDRODIURI 00:00: every Hospi ta L) 25 MG 00 morning. l tablet hydroCHLORO 2019-0 Yes 25mg QD Take 25 mg [facility] thiazide 9-[address] (HYDRODIURI 00:00: every Hospi ta L) 25 MG 00 morning. l tablet hydroCHLORO 2019-0 Yes 25mg QD Take 25 mg [facility] thiazide 9-[address] (HYDRODIURI 00:00: every Hospi ta L) 25 MG 00 morning. l tablet hydroCHLORO 2019-0 Yes 25mg QD Take 25 mg [facility] thiazide 9-[address] (HYDRODIURI 00:00: every Hospi ta L) 25 MG 00 morning. l tablet hydroCHLORO 2019-0 Yes 25mg QD Take 25 mg [facility] thiazide 9-[address] (HYDRODIURI 00:00: every Hospi ta L) 25 MG 00 morning. l tablet hydroCHLORO 2019-0 Yes 25mg QD Take 25 mg [facility] thiazide 9-[address] (HYDRODIURI 00:00: every Hospi ta L) 25 MG 00 morning. l tablet iohexol 2019- No 150mL 150 mL, Unive rs (OMNIPAQUE 05-04 Intravenou it y of 350 17:30: 17:30 s, ONCE, 1 [place] BULK-150 00 :00 dose, Fri Medica l mL) 05/04/19 at Branch injection 1230, 150 mL Routine [employer] 0 No 40mg Common (Triamcinol (Triamcinol 6-24 S pirit one) one) [facility] (Triamcinol (Triamcinol 6-24 S pirit one) one) 00:[facility] No 40mg Common (Triamcinol (Triamcinol 6-24 S pirit one) one) 00:00: - [facility] Kenalog Kenalog 2019-0 No 40mg Common (Triamcinol (Triamcinol 6-24 S pirit one) one) 00:00: - [facility] Sriramalog Kenalog 2019-0 No 40mg Common (Triamcinol (Triamcinol 6-24 S pirit one) one) 00:00: - [facility] Bactrim 400 Bactrim 400 2014-08 No Bactrim Мария mg-80 mg mg-80 mg 1-03 400 mg-80 Or thope tablet 1 PO tablet 1 PO 00:00: mg tablet dic TID TID 00 1 PO TID [facility] Medic[facility] Bactrim 400 Bactrim 400 2014-08 No Bactrim Мария mg-80 mg mg-80 mg 1-03 400 mg-80 Or thope tablet 1 PO tablet 1 PO 00:00: mg tablet dic TID TID 00 1 PO TID Sports Medicin e Bactrim 400 Bactrim 400 2014-08 No Bactrim Мария mg-80 mg mg-80 mg 1-03 400 mg-80 Or thope tablet 1 PO tablet 1 PO 00:00: mg tablet dic TID TID 00 1 PO TID Sports Medicin e Bactrim 400 Bactrim 400 2014-08 No Bactrim Амрия mg-80 mg mg-80 mg 1- 400 mg-80 Or thope tablet 1 PO tablet 1 PO 00:00: mg tablet dic TID TID 00 1 PO TID [facility] e bupropion bupropion No bupropion Мария HCl XL 300 HCl XL 300 8-11 HCl XL 300 [facility] mg 24 hr mg 24 hr 00:00: mg 24 hr d ic tablet, tablet, 00 tablet, Sports extended extended extended Med icin release release release e buspirone buspirone No buspirone Мария 15 mg 15 mg 8-11 15 mg [facility] tablet tablet 00:00: tablet dic 00 [facility] Bystolic Bystolic No Bystolic A zalea 2.5 mg 2.5 mg 8-11 2.5 mg [facility] tablet tablet 00:00: tablet dic 00 [facility] glyburide glyburide No glyburide Мария 2.5 mg 2.5 mg 8-11 2.5 mg [facility] tablet tablet 00:00: tablet dic 00 Sports Medicin e Lantus Lantus No Lantus Мария U-100 U-100 8-11 U-100 [facility] Insulin 100 Insulin 100 00:00: Insulin dic unit/mL unit/mL 00 100 Sports subcutaneou subcutaneou unit/mL Medicin s solution s solution subcutaneo e us solution losartan 50 losartan 50 No losartan Мария mg tablet mg tablet 811 50 mg Orth ope 00:00: tablet dic 00 [facility] e metformin metformin No metformin Мария 500 mg 500 mg 811 500 mg [facility] tablet tablet 00:00: tablet dic 00 Sports Medicin e Victoza Victoza No Victoza Azal ea 2-Allan 0.6 2-Allan 0.6 8-11 2-Allan 0.6 [facility] mg/0.1 mL mg/0.1 mL 00:00: mg/0.1 mL dic (18 mg/3 (18 mg/3 00 (18 mg/3 Spo rts mL) mL) mL) Medicin subcutaneou subcutaneou subcutaneo e s pen s pen us pen injector injector injector bupropion bupropion No bupropion Мария HCl XL 300 HCl XL 300 8 HCl XL 300 [facility] mg 24 hr mg 24 hr 00:00: mg 24 hr d ic tablet, tablet, 00 tablet, Sports extended extended extended Med icin release release release e buspirone buspirone No buspirone Мария 15 mg 15 mg 8 15 mg [facility] tablet tablet 00:00: tablet dic Sports Medicin e Bystolic Bystolic No Bystolic A zalea 2.5 mg 2.5 mg 811 2.5 mg [facility] tablet tablet 00:00: tablet dic [facility] e glyburide glyburide No glyburide Мария 2.5 mg 2.5 mg 03-25 2.5 mg [facility] tablet tablet 00:00: tablet dic 00 Sports Medicin e Lantus Lantus No Lantus Мария U-100 U-100 03-25 U-100 [facility] Insulin 100 Insulin 100 00:00: Insulin dic unit/mL unit/mL 00 100 Sports subcutaneou subcutaneou unit/mL Medicin s solution s solution subcutaneo e us solution losartan 50 losartan 50 No losartan Мария mg tablet mg tablet 03-25 50 mg Orth ope 00:00: tablet dic 00 Sports Medicin e metformin metformin No metformin Мария 500 mg 500 mg 03-25 500 mg [facility] tablet tablet 00:00: tablet dic 00 Sports Medicin e Victoza Victoza No Victoza Azal ea 2-Allan 0.6 2-Allan 0.6 11 2-Allan 0.6 [facility] mg/0.1 mL mg/0.1 mL 00:00: mg/0.1 mL dic (18 mg/3 (18 mg/3 00 (18 mg/3 Spo rts mL) mL) mL) Medicin subcutaneou subcutaneou subcutaneo e s pen s pen us pen injector injector injector bupropion bupropion No bupropion Мария HCl XL 300 HCl XL 300 03-25 HCl XL 300 [facility] mg 24 hr mg 24 hr 00:00: mg 24 hr d ic tablet, tablet, 00 tablet, Sports extended extended extended Med icin release release release e buspirone buspirone No buspirone Мария 15 mg 15 mg 03-25 15 mg [facility] tablet tablet 00:00: tablet dic 00 Sports Medicin e Bystolic Bystolic No Bystolic A zalea 2.5 mg 2.5 mg 03-25 2.5 mg [facility] tablet tablet 00:00: tablet dic 00 Sports Medicin e glyburide glyburide No glyburide Мария 2.5 mg 2.5 mg 03-25 2.5 mg [facility] tablet tablet 00:00: tablet dic Sports Medicin e Lantus Lantus No Lantus Мария U-100 U-100 03-25 U-100 [facility] Insulin 100 Insulin 100 00:00: Insulin dic unit/mL unit/mL 00 100 Sports subcutaneou subcutaneou unit/mL Medicin s solution s solution subcutaneo e us solution losartan 50 losartan 50 No losartan Мария mg tablet mg tablet 03-25 50 mg Orth ope 00:00: tablet dic 00 Sports Medicin e metformin metformin No metformin Мария 500 mg 500 mg 03-25 500 mg [facility] tablet tablet 00:00: tablet dic Sports Medicin e Victoza Victoza No Victoza Azal ea 2-Allan 0.6 2-Allan 0.6 11 2-Allan 0.6 [facility] mg/0.1 mL mg/0.1 mL 00:00: mg/0.1 mL dic (18 mg/3 (18 mg/3 00 (18 mg/3 Spo rts mL) mL) mL) Medicin subcutaneou subcutaneou subcutaneo e s pen s pen us pen injector injector injector clopidogrel Yes [id number] 75mg Take 1 Tab [facility] (PLAVIX) 75 8-22 by mouth ity of mg tablet 00:00: daily. [address] Yes [id number] 10mg Take 1 Tab [facility] n (CRESTOR) 8-22 by mouth ity of 10 mg 00:00: at [place] tablet 00 bedtime. Medical Branch clopidogrel Yes [id number] 75mg Take 1 Tab [facility] (PLAVIX) 75 8-22 by mouth ity of mg tablet 00:00: daily. Medical Branch rosuvastati Yes [id number] 10mg Take 1 Tab [facility] n (CRESTOR) 8-22 by mouth ity of 10 mg 00:00: at [place] tablet 00 bedtime. Medical Branch clopidogrel Yes [id number] 75mg Take 1 Tab [facility] (PLAVIX) 75 8-22 by mouth ity of mg tablet 00:00: daily. Medical Branch rosuvastati Yes [id number] 10mg Take 1 Tab [facility] n (CRESTOR) 8-22 by mouth ity of 10 mg 00:00: at [place] tablet 00 bedtime. Medical Branch rosuvastati Yes [id number] 10mg Take 1 Tab [facility] n (CRESTOR) 8-22 by mouth ity of 10 mg 00:00: at [place] tablet 00 bedtime. Medical Branch rosuvastati Yes [id number] 10mg Take 1 Tab [facility] n (CRESTOR) 8-22 by mouth ity of 10 mg 00:00: at [place] tablet 00 bedtime. Medical Branch rosuvastati Yes [id number] 10mg Take 1 Tab [facility] n (CRESTOR) 8-22 by mouth ity of 10 mg 00:00: at [place] tablet 00 bedtime. Medical Branch clopidogrel Yes [id number] 75mg Take 1 Tab [facility] (PLAVIX) 75 8-22 by mouth ity of mg tablet 00:00: daily. Medical Branch rosuvastati Yes [id number] 10mg Take 1 Tab [facility] n (CRESTOR) 8-22 by mouth ity of 10 mg 00:00: at [place] tablet 00 bedtime. Medical Branch rosuvastati Yes [id number] 10mg Take 1 Tab Univers n (CRESTOR) 8-22 by mouth ity of 10 mg 00:00: at [place] tablet 00 bedtime. Medical Branch Liraglutide 2014-0 Yes 1.8mg inject 1.8 [facility] (VICTOZA) 8-22 mg under ity of 0.6 mg/0.1 00:00: the skin Luis as mL (18 mg/3 00 daily. Medica l mL) [facility] rosuvastati Yes [id number] 10mg Take 1 Tab Univers n (CRESTOR) 8-22 by mouth ity of 10 mg 00:00: at [place] tablet 00 bedtime. [facility] rosuvastati Yes [id number] 10mg Take 1 Tab Univers n (CRESTOR) 8-22 by mouth ity of 10 mg 00:00: at [place] tablet 00 bedtime. [facility] Branch clopidogrel Yes [id number] 75mg Take 1 Tab [facility] (PLAVIX) 75 8-22 by mouth ity of mg tablet 00:00: daily. [facility] rosuvastati Yes [id number] 10mg Take 1 Tab Univers n (CRESTOR) 8-22 by mouth ity of 10 mg 00:00: at [place] tablet 00 bedtime. Medical Branch Liraglutide Yes 1.8mg inject 1.8 [facility] (VICTOZA) 8-22 mg under ity of 0.6 mg/0.1 00:00: the skin Luis as mL (18 mg/3 00 daily. Medica l mL) [facility] clopidogrel Yes [id number] 75mg Take 1 Tab [facility] (PLAVIX) 75 8-22 by mouth ity of mg tablet 00:00: daily. [facility] rosuvastati Yes [id number] 10mg Take 1 Tab Univers n (CRESTOR) 8-22 by mouth ity of 10 mg 00:00: at [place] tablet 00 bedtime. [facility] Branch Liraglutide Yes 1.8mg inject 1.8 [facility] (VICTOZA) 8-22 mg under ity of 0.6 mg/0.1 00:00: the skin Luis as mL (18 mg/3 00 daily. Medica l mL) [facility] clopidogrel Yes [id number] 75mg Take 1 Tab [facility] (PLAVIX) 75 8-22 by mouth ity of mg tablet 00:00: daily. [facility] rosuvastati Yes [id number] 10mg Take 1 Tab Univers n (CRESTOR) 8-22 by mouth ity of 10 mg 00:00: at [place] tablet 00 bedtime. Medical Branch clopidogrel Yes [id number] 75mg Take 1 Tab [facility] (PLAVIX) 75 8-22 by mouth ity of mg tablet 00:00: daily. Medical Branch rosuvastati Yes [id number] 10mg Take 1 Tab [facility] n (CRESTOR) 8-22 by mouth ity of 10 mg 00:00: at [place] tablet 00 bedtime. Medical Branch clopidogrel Yes [id number] 75mg Take 1 Tab [facility] (PLAVIX) 75 8-22 by mouth ity of mg tablet 00:00: daily. Medical Branch rosuvastati Yes [id number] 10mg Take 1 Tab Univers n (CRESTOR) 8-22 by mouth ity of 10 mg 00:00: at [place] tablet 00 bedtime. Medical Branch clopidogrel Yes [id number] 75mg Take 1 Tab [facility] (PLAVIX) 75 8-22 by mouth ity of mg tablet 00:00: daily. Medical Branch clopidogrel Yes [id number] 75mg Take 1 Tab [facility] (PLAVIX) 75 8-22 by mouth ity of mg tablet 00:00: daily. Medical [facility] rosuvastati Yes [id number] 10mg Take 1 Tab [facility] n (CRESTOR) 8-22 by mouth ity of 10 mg 00:00: at [place] tablet 00 bedtime. Medical Branch rosuvastati Yes [id number] 10mg Take 1 Tab [facility] n (CRESTOR) 8-22 by mouth ity of 10 mg 00:00: at [place] tablet 00 bedtime. Medical Branch Liraglutide Yes 1.8mg inject 1.8 [facility] (VICTOZA) 8-22 mg under ity of 0.6 mg/0.1 00:00: the skin Luis as mL (18 mg/3 00 daily. Medica l mL) [facility] clopidogrel Yes [id number] 75mg Take 1 Tab [facility] (PLAVIX) 75 8-22 by mouth ity of mg tablet 00:00: daily. Medical [facility] rosuvastati Yes [id number] 10mg Take 1 Tab Univers n (CRESTOR) 8-22 by mouth ity of 10 mg 00:00: at [place] tablet 00 bedtime. Medical [facility] clopidogrel 2013-0 Yes [id number] 75mg Take 1 Tab [facility] (PLAVIX) 75 8-22 by mouth ity of mg tablet 00:00: daily. [facility] rosuvastati 2013-0 Yes [id number] 10mg Take 1 Tab Univers n (CRESTOR) 8-22 by mouth ity of 10 mg 00:00: at [place] tablet 00 bedtime. Medical Branch clopidogrel 2013-0 Yes [id number] 75mg Take 1 Tab [facility] (PLAVIX) 75 8-22 by mouth ity of mg tablet 00:00: daily. Medical [facility] rosuvastati Yes [id number] 10mg Take 1 Tab [facility] n (CRESTOR) 8-22 by mouth ity of 10 mg 00:00: at [place] tablet 00 bedtime. Medical Branch clopidogrel 2013- Yes [id number] 75mg Take 1 Tab [facility] (PLAVIX) 75 8-22 by mouth ity of mg tablet 00:00: daily. [facility] rosuvastati Yes [id number] 10mg Take 1 Tab Univers n (CRESTOR) 8-22 by mouth ity of 10 mg 00:00: at [place] tablet 00 bedtime. Medical [facility] clopidogrel 2013-0 Yes [id number] 75mg Take 1 Tab [facility] (PLAVIX) 75 8-22 by mouth ity of mg tablet 00:00: daily. [facility] rosuvastati Yes [id number] 10mg Take 1 Tab [facility] n (CRESTOR) 8-22 by mouth ity of 10 mg 00:00: at [place] tablet 00 bedtime. Medical [facility] clopidogrel 2013-0 Yes [id number] 75mg Take 1 Tab [facility] (PLAVIX) 75 8-22 by mouth ity of mg tablet 00:00: daily. [facility] rosuvastati 0 Yes [id number] 10mg Take 1 Tab [facility] n (CRESTOR) 8-22 by mouth ity of 10 mg 00:00: at [place] tablet 00 bedtime. Medical [facility] clopidogrel 2013-0 Yes [id number] 75mg Take 1 Tab [facility] (PLAVIX) 75 8-22 by mouth ity of mg tablet 00:00: daily. [facility] rosuvastati 2013-0 Yes [id number] 10mg Take 1 Tab Univers n (CRESTOR) 8-22 by mouth ity of 10 mg 00:00: at [place] tablet 00 bedtime. [facility] clopidogrel 2013-0 Yes [id number] 75mg Take 1 Tab [facility] (PLAVIX) 75 8-22 by mouth ity of mg tablet 00:00: daily. [facility] rosuvastati 2013-0 Yes [id number] 10mg Take 1 Tab Univers n (CRESTOR) 8-22 by mouth ity of 10 mg 00:00: at [place] tablet 00 bedtime. [facility] clopidogrel 2013-0 Yes [id number] 75mg Take 1 Tab [facility] (PLAVIX) 75 8-22 by mouth ity of mg tablet 00:00: daily. [facility] rosuvastati 2013-0 Yes [id number] 10mg Take 1 Tab Univers n (CRESTOR) 8-22 by mouth ity of 10 mg 00:00: at [place] tablet 00 bedtime. [facility] clopidogrel 2013- Yes [id number] 75mg Take 1 Tab [facility] (PLAVIX) 75 8-22 by mouth ity of mg tablet 00:00: daily. [facility] rosuvastati Yes [id number] 10mg Take 1 Tab [facility] n (CRESTOR) 8-22 by mouth ity of 10 mg 00:00: at [place] tablet 00 bedtime. Medical Branch clopidogrel 2013-0 Yes [id number] 75mg Take 1 Tab [facility] (PLAVIX) 75 8-22 by mouth ity of mg tablet 00:00: daily. [facility] rosuvastati 2013-0 Yes [id number] 10mg Take 1 Tab [facility] n (CRESTOR) 8-22 by mouth ity of 10 mg 00:00: at [place] tablet 00 bedtime. [facility] clopidogrel 2013-0 Yes [id number] 75mg Take 1 Tab [facility] (PLAVIX) 75 8-22 by mouth ity of mg tablet 00:00: daily. [facility] clopidogrel 2013-0 Yes [id number] 75mg Take 1 Tab [facility] (PLAVIX) 75 8-22 by mouth ity of mg tablet 00:00: daily. [facility] rosuvastati 2013-0 Yes [id number] 10mg Take 1 Tab [facility] n (CRESTOR) 8-22 by mouth ity of 10 mg 00:00: at [place] tablet 00 bedtime. [facility] rosuvastati Yes [id number] 10mg Take 1 Tab [facility] n (CRESTOR) 8-22 by mouth ity of 10 mg 00:00: at [place] tablet 00 bedtime. [facility] Liraglutide Yes 1.8mg inject 1.8 [facility] (VICTOZA) 8-22 mg under ity of 0.6 mg/0.1 00:00: the skin [place] mL (18 mg/3 00 daily. Medica l mL) Pn Branch clopidogrel Yes [id number] 75mg Take 1 Tab [facility] (PLAVIX) 75 8-22 by mouth ity of mg tablet 00:00: daily. [facility] rosuvastati Yes [id number] 10mg Take 1 Tab [facility] n (CRESTOR) 8-22 by mouth ity of 10 mg 00:00: at [place] tablet 00 bedtime. [facility] clopidogrel Yes [id number] 75mg Take 1 Tab [facility] (PLAVIX) 75 8-22 by mouth ity of mg tablet 00:00: daily. [facility] rosuvastati Yes [id number] 10mg Take 1 Tab [facility] n (CRESTOR) 8-22 by mouth ity of 10 mg 00:00: at [place] tablet 00 bedtime. [facility] clopidogrel Yes [id number] 75mg Take 1 Tab [facility] (PLAVIX) 75 8-22 by mouth ity of mg tablet 00:00: daily. [facility] rosuvastati Yes [id number] 10mg Take 1 Tab [facility] n (CRESTOR) 8-22 by mouth ity of 10 mg 00:00: at [place] tablet 00 bedtime. [facility] clopidogrel Yes [id number] 75mg Take 1 Tab [facility] (PLAVIX) 75 8-22 by mouth ity of mg tablet 00:00: daily. [facility] rosuvastati Yes [id number] 10mg Take 1 Tab [facility] n (CRESTOR) 8-22 by mouth ity of 10 mg 00:00: at [place] tablet 00 bedtime. [facility] clopidogrel Yes [id number] 75mg Take 1 Tab [facility] (PLAVIX) 75 8-22 by mouth ity of mg tablet 00:00: daily. [facility] rosuvastati Yes [id number] 10mg Take 1 Tab [facility] n (CRESTOR) 8-22 by mouth ity of 10 mg 00:00: at [place] tablet 00 bedtime. [facility] clopidogrel 2013-0 Yes [id number] 75mg Take 1 Tab [facility] (PLAVIX) 75 8-22 by mouth ity of mg tablet 00:00: daily. [facility] rosuvastati 2013-0 Yes [id number] 10mg Take 1 Tab [facility] n (CRESTOR) 8-22 by mouth ity of 10 mg 00:00: at [place] tablet 00 bedtime. [facility] clopidogrel Yes [id number] 75mg Take 1 Tab [facility] (PLAVIX) 75 8-22 by mouth ity of mg tablet 00:00: daily. [facility] rosuvastati Yes [id number] 10mg Take 1 Tab [facility] n (CRESTOR) 8-22 by mouth ity of 10 mg 00:00: at [place] tablet 00 bedtime. [facility] clopidogrel 2013- Yes [id number] 75mg Take 1 Tab [facility] (PLAVIX) 75 8-22 by mouth ity of mg tablet 00:00: daily. [facility] rosuvastati Yes [id number] 10mg Take 1 Tab [facility] n (CRESTOR) 8-22 by mouth ity of 10 mg 00:00: at [place] tablet 00 bedtime. [facility] clopidogrel 2013-0 Yes [id number] 75mg Take 1 Tab [facility] (PLAVIX) 75 8-22 by mouth ity of mg tablet 00:00: daily. [facility] rosuvastati 2013- Yes [id number] 10mg Take 1 Tab [facility] n (CRESTOR) 8-22 by mouth ity of 10 mg 00:00: at [place] tablet 00 bedtime. [facility] clopidogrel Yes [id number] 75mg Take 1 Tab [facility] (PLAVIX) 75 8-22 by mouth ity of mg tablet 00:00: daily. [facility] rosuvastati 2013-0 Yes [id number] 10mg Take 1 Tab [facility] n (CRESTOR) 8-22 by mouth ity of 10 mg 00:00: at [place] tablet 00 bedtime. [facility] clopidogrel 2013-0 Yes [id number] 75mg Take 1 Tab [facility] (PLAVIX) 75 8-22 by mouth ity of mg tablet 00:00: daily. [place] [facility] rosuvastati Yes [id number] 10mg Take 1 Tab [facility] n (CRESTOR) 8-22 by mouth ity of 10 mg 00:00: at [place] tablet 00 bedtime. [facility] clopidogrel Yes [id number] 75mg Take 1 Tab [facility] (PLAVIX) 75 8-22 by mouth ity of mg tablet 00:00: daily. [place] [facility] rosuvastati Yes [id number] 10mg Take 1 Tab [facility] n (CRESTOR) 8-22 by mouth ity of 10 mg 00:00: at [place] tablet 00 bedtime. [facility] clopidogrel Yes [id number] 75mg Take 1 Tab [facility] (PLAVIX) 75 8-22 by mouth ity of mg tablet 00:00: daily. [place] [facility] clopidogrel Yes [id number] 75mg Take 1 Tab [facility] (PLAVIX) 75 8-22 by mouth ity of mg tablet 00:00: daily. [facility] rosuvastati Yes [id number] 10mg Take 1 Tab [facility] n (CRESTOR) 8-22 by mouth ity of 10 mg 00:00: at [place] tablet 00 bedtime. [facility] rosuvastati Yes [id number] 10mg Take 1 Tab [facility] n (CRESTOR) 8-22 by mouth ity of 10 mg 00:00: at [place] tablet 00 bedtime. [facility] Liraglutide Yes 1.8mg inject 1.8 [facility] (VICTOZA) 8-22 mg under ity of 0.6 mg/0.1 00:00: the skin [place] mL (18 mg/3 00 daily. Medica l mL) Pn Branch clopidogrel Yes [id number] 75mg Take 1 Tab [facility] (PLAVIX) 75 8-22 by mouth ity of mg tablet 00:00: daily. [place] [facility] rosuvastati Yes [id number] 10mg Take 1 Tab [facility] n (CRESTOR) 8-22 by mouth ity of 10 mg 00:00: at [place] tablet 00 bedtime. [facility] clopidogrel 2023- No [id number] 75mg Take 1 Tab [facility] (PLAVIX) 75 8-22 08-25 by mouth ity of mg tablet 00:00: 00:00 daily. [place] 00 :00 [facility] clopidogrel 2022- No [id number] 75mg Take 1 Tab [facility] (PLAVIX) 75 04-05 08-25 by mouth ity of mg tablet 00:00: 00:00 daily. [place] 00 :00 [facility] Liraglutide No 1.8mg inject 1.8 [facility] (VICTOZA) 8 12-28 mg under ity o f 0.6 mg/0.1 00:00: 00:00 the skin [place] mL (18 mg/3 00 :00 daily. Medica l mL) [facility] Liraglutide No 1.8mg inject 1.8 [facility] (VICTOZA) 8- 12-28 mg under ity o f 0.6 mg/0.1 00:00: 00:00 the skin [place] mL (18 mg/3 00 :00 daily. Medica l mL) [facility] Liraglutide No 1.8mg inject 1.8 [facility] (VICTOZA) 04-05 12-28 mg under ity o f 0.6 mg/0.1 00:00: 00:00 the skin [place] mL (18 mg/3 00 :00 daily. Medica l mL) [facility] Liraglutide No 1.8mg inject 1.8 [facility] (VICTOZA) 8- 12-28 mg under ity o f 0.6 mg/0.1 00:00: 00:00 the skin [place] mL (18 mg/3 00 :00 daily. Medica l mL) [facility] Liraglutide No 1.8mg inject 1.8 [facility] (VICTOZA) 8- 12-28 mg under ity o f 0.6 mg/0.1 00:00: 00:00 the skin [place] mL (18 mg/3 00 :00 daily. Medica l mL) [facility] insulin Yes 10 units Univer s lispro 7-14 with lunch ity of (HUMALOG 00:00: [place] KWIKPEN) 00 Medical 100 unit/mL Branch pen injector insulin Yes 10 units Univer s lispro 7-14 with lunch ity of (HUMALOG 00:00: [place] KWIKPEN) 00 Medical 100 unit/mL Branch pen injector insulin Yes 10 units Univer s lispro 7-14 with lunch ity of (HUMALOG 00:00: [place] KWIKPEN) 00 Medical 100 unit/mL Branch pen injector Insulin Yes [id number] 4 (four) Un sukhwinder [place], 7-14 times ity of Disposable, 00:00: daily. [place] (BD 00 Medical ULTRAFINE Branch III MINI PEN) 31 x 3/16 " Ndle insulin Yes 10 units Univer s lispro 7-14 with lunch ity of (HUMALOG 00:00: [place] KWIKPEN) 00 Medical 100 unit/mL Branch pen injector Insulin Yes [id number] 4 (four) Un sukhw[place], 7-14 times ity of Disposable, 00:00: daily. [place] (BD 00 Medical ULTRAFINE Branch III MINI PEN) 31 x 3/16 " Ndle insulin Yes 10 units Univer s lispro 7-14 with lunch ity of (HUMALOG 00:00: [place] KWIKPEN) 00 Medical 100 unit/mL Branch pen injector Insulin Yes [id number] 4 (four) Un sukhw[place], 7-14 times ity of Disposable, 00:00: daily. [place] (BD 00 Medical ULTRAFINE Branch III MINI PEN) 31 x 3/16 " Ndle insulin Yes 10 units Univer s lispro 7-14 with lunch ity of (HUMALOG 00:00: [place] KWIKPEN) 00 Medical 100 unit/mL Branch pen injector Insulin Yes [id number] 4 (four) Un sukhw[place], 7-14 times ity of Disposable, 00:00: daily. [place] (BD 00 Medical ULTRAFINE Branch III MINI PEN) 31 x 3/16 " Ndle insulin Yes 10 units Univer s lispro 7-14 with lunch ity of (HUMALOG 00:00: [place] KWIKPEN) 00 Medical 100 unit/mL Branch pen injector Insulin Yes [id number] 4 (four) Un sukhw[place], 7-14 times ity of Disposable, 00:00: daily. [place] (BD 00 Medical ULTRAFINE Branch III MINI PEN) 31 x 3/16 " Ndle insulin Yes 10 units Univer s lispro 7-14 with lunch ity of (HUMALOG 00:00: [place] KWIKPEN) 00 Medical 100 unit/mL Branch pen injector Insulin Yes [id number] 4 (four) Un sukhw[place], 7-14 times ity of Disposable, 00:00: daily. [place] (BD 00 Medical ULTRAFINE Branch III MINI PEN) 31 x 3/16 " Ndle insulin Yes 10 units Univer s lispro 7-14 with lunch ity of (HUMALOG 00:00: [place] KWIKPEN) 00 Medical 100 unit/mL Branch pen injector Insulin Yes [id number] 4 (four) Un sukhwinder [place], 7-14 times ity of Disposable, 00:00: daily. [place] (BD 00 Medical ULTRAFINE Branch III MINI PEN) 31 x 3/16 " Ndle insulin Yes 10 units Univer s lispro 7-14 with lunch ity of (HUMALOG 00:00: [place] KWIKPEN) 00 Medical 100 unit/mL Branch pen injector Insulin Yes [id number] 4 (four) Un sukhwinder [place], 7-14 times ity of Disposable, 00:00: daily. [place] (BD 00 Medical ULTRAFINE Branch III MINI PEN) 31 x 3/16 " Ndle insulin Yes 10 units Univer s lispro 7-14 with lunch ity of (HUMALOG 00:00: [place] KWIKPEN) 00 Medical 100 unit/mL Branch pen injector Insulin Yes [id number] 4 (four) Un sukhwinder [place], 7-14 times ity of Disposable, 00:00: daily. [place] (BD 00 Medical ULTRAFINE Branch III MINI PEN) 31 x 3/16 " Ndle insulin Yes 10 units Univer s lispro 7-14 with lunch ity of (HUMALOG 00:00: [place] KWIKPEN) 00 Medical 100 unit/mL Branch pen injector Insulin Yes [id number] 4 (four) Un sukhwinder [place], 7-14 times ity of Disposable, 00:00: daily. [place] (BD 00 Medical ULTRAFINE Branch III MINI PEN) 31 x 3/16 " Ndle insulin Yes 10 units Univer s lispro 7-14 with lunch ity of (HUMALOG 00:00: [place] KWIKPEN) 00 Medical 100 unit/mL Branch pen injector Insulin Yes [id number] 4 (four) Un sukhwinder [place], 7-14 times ity of Disposable, 00:00: daily. [place] (BD 00 Medical ULTRAFINE Branch III MINI PEN) 31 x 3/16 " Ndle insulin Yes 10 units Univer s lispro 7-14 with lunch ity of (HUMALOG 00:00: [place] KWIKPEN) 00 Medical 100 unit/mL Branch pen injector Insulin Yes [id number] 4 (four) Un sukhwinder [place], 7-14 times ity of Disposable, 00:00: daily. [place] (BD 00 Medical ULTRAFINE Branch III MINI PEN) 31 x 3/16 " Ndle insulin Yes 10 units Univer s lispro 7-14 with lunch ity of (HUMALOG 00:00: [place] KWIKPEN) 00 Medical 100 unit/mL Branch pen injector Insulin Yes [id number] 4 (four) Un sukhwinder [place], 7-14 times ity of Disposable, 00:00: daily. [place] (BD 00 Medical ULTRAFINE Branch III MINI PEN) 31 x 3/16 " Ndle insulin Yes 10 units Univer s lispro 7-14 with lunch ity of (HUMALOG 00:00: [place] KWIKPEN) 00 Medical 100 unit/mL Branch pen injector Insulin Yes [id number] 4 (four) Un sukhwinder [place], 7-14 times ity of Disposable, 00:00: daily. [place] (BD 00 Medical ULTRAFINE Branch III MINI PEN) 31 x 3/16 " Ndle insulin Yes 10 units Univer s lispro 7-14 with lunch ity of (HUMALOG 00:00: [place] KWIKPEN) 00 Medical 100 unit/mL Branch pen injector Insulin Yes [id number] 4 (four) Un sukhwinder [place], 7-14 times ity of Disposable, 00:00: daily. [place] (BD 00 Medical ULTRAFINE Branch III MINI PEN) 31 x 3/16 " Ndle insulin Yes 10 units Univer s lispro 7-14 with lunch ity of (HUMALOG 00:00: [place] KWIKPEN) 00 Medical 100 unit/mL Branch pen injector Insulin Yes [id number] 4 (four) Un sukhwinder [place], 7-14 times ity of Disposable, 00:00: daily. [place] (BD 00 Medical ULTRAFINE Branch III MINI PEN) 31 x 3/16 " Ndle insulin Yes 10 units Univer s lispro 7-14 with lunch ity of (HUMALOG 00:00: [place] KWIKPEN) 00 Medical 100 unit/mL Branch pen injector Insulin Yes [id number] 4 (four) Un sukhwinder [place], 7-14 times ity of Disposable, 00:00: daily. [place] (BD 00 Medical ULTRAFINE Branch III MINI PEN) 31 x 3/16 " Ndle insulin Yes 10 units Univer s lispro 7-14 with lunch ity of (HUMALOG 00:00: [place] KWIKPEN) 00 Medical 100 unit/mL Branch pen injector Insulin Yes [id number] 4 (four) Un sukhw[place], 7-14 times ity of Disposable, 00:00: daily. [place] (BD 00 Medical ULTRAFINE Branch III MINI PEN) 31 x 3/16 " Ndle insulin Yes 10 units Univer s lispro 7-14 with lunch ity of (HUMALOG 00:00: [place] KWIKPEN) 00 Medical 100 unit/mL Branch pen injector Insulin Yes [id number] 4 (four) Un sukhwinder [place], 7-14 times ity of Disposable, 00:00: daily. [place] (BD 00 Medical ULTRAFINE Branch III MINI PEN) 31 x 3/16 " Ndle insulin Yes 10 units Univer s lispro 7-14 with lunch ity of (HUMALOG 00:00: [place] KWIKPEN) 00 Medical 100 unit/mL Branch pen injector Insulin Yes [id number] 4 (four) Un sukhwinder [place], 7-14 times ity of Disposable, 00:00: daily. [place] (BD 00 Medical ULTRAFINE Branch III MINI PEN) 31 x 3/16 " Ndle insulin Yes 10 units Univer s lispro 7-14 with lunch ity of (HUMALOG 00:00: [place] KWIKPEN) 00 Medical 100 unit/mL Branch pen injector Insulin Yes [id number] 4 (four) Un sukhw[place], 7-14 times ity of Disposable, 00:00: daily. [place] (BD 00 Medical ULTRAFINE Branch III MINI PEN) 31 x 3/16 " Ndle insulin Yes 10 units Univer s lispro 7-14 with lunch ity of (HUMALOG 00:00: [place] KWIKPEN) 00 Medical 100 unit/mL Branch pen injector Insulin Yes [id number] 4 (four) Un sukhwinder [place], 7-14 times ity of Disposable, 00:00: daily. [place] (BD 00 Medical ULTRAFINE Branch III MINI PEN) 31 x 3/16 " Ndle insulin Yes 10 units Univer s lispro 7-14 with lunch ity of (HUMALOG 00:00: [place] KWIKPEN) 00 Medical 100 unit/mL Branch pen injector Insulin Yes [id number] 4 (four) Un sukhwinder [place], 7-14 times ity of Disposable, 00:00: daily. [place] (BD 00 Medical ULTRAFINE Branch III MINI PEN) 31 x 3/16 " Ndle insulin Yes 10 units Univer s lispro 7-14 with lunch ity of (HUMALOG 00:00: [place] KWIKPEN) 00 Medical 100 unit/mL Branch pen injector Insulin Yes [id number] 4 (four) Un sukhwinder [place], 7-14 times ity of Disposable, 00:00: daily. [place] (BD 00 Medical ULTRAFINE Branch III MINI PEN) 31 x 3/16 " Ndle insulin Yes 10 units Univer s lispro 7-14 with lunch ity of (HUMALOG 00:00: [place] KWIKPEN) 00 Medical 100 unit/mL Branch pen injector Insulin Yes [id number] 4 (four) Un sukhw[place], 7-14 times ity of Disposable, 00:00: daily. [place] (BD 00 Medical ULTRAFINE Branch III MINI PEN) 31 x 3/16 " Ndle insulin Yes 10 units Univer s lispro 7-14 with lunch ity of (HUMALOG 00:00: [place] KWIKPEN) 00 Medical 100 unit/mL Branch pen injector Insulin Yes [id number] 4 (four) Un sukhw[place], 7-14 times ity of Disposable, 00:00: daily. [place] (BD 00 Medical ULTRAFINE Branch III MINI PEN) 31 x 3/16 " Ndle insulin Yes 10 units Univer s lispro 7-14 with lunch ity of (HUMALOG 00:00: [place] KWIKPEN) 00 Medical 100 unit/mL Branch pen injector Insulin Yes [id number] 4 (four) Un sukhw[place], 7-14 times ity of Disposable, 00:00: daily. [place] (BD 00 Medical ULTRAFINE Branch III MINI PEN) 31 x 3/16 " Ndle insulin Yes 10 units Univer s lispro 7-14 with lunch ity of (HUMALOG 00:00: [place] KWIKPEN) 00 Medical 100 unit/mL Branch pen injector Insulin Yes [id number] 4 (four) Un sukhw[place], 7-14 times ity of Disposable, 00:00: daily. [place] (BD 00 Medical ULTRAFINE Branch III MINI PEN) 31 x 3/16 " Ndle insulin Yes 10 units Univer s lispro 7-14 with lunch ity of (HUMALOG 00:00: [place] KWIKPEN) 00 Medical 100 unit/mL Branch pen injector Insulin Yes [id number] 4 (four) Un sukhw[place], 7-14 times ity of Disposable, 00:00: daily. [place] (BD 00 Medical ULTRAFINE Branch III MINI PEN) 31 x 3/16 " Ndle insulin Yes 10 units Univer s lispro 7-14 with lunch ity of (HUMALOG 00:00: [place] KWIKPEN) 00 Medical 100 unit/mL Branch pen injector Insulin Yes [id number] 4 (four) Un sukhw[place], 7-14 times ity of Disposable, 00:00: daily. [place] (BD 00 Medical ULTRAFINE Branch III MINI PEN) 31 x 3/16 " Ndle insulin Yes 10 units Univer s lispro 7-14 with lunch ity of (HUMALOG 00:00: [place] KWIKPEN) 00 Medical 100 unit/mL Branch pen injector Insulin Yes [id number] 4 (four) Un sukhw[place], 7-14 times ity of Disposable, 00:00: daily. [place] (BD 00 Medical ULTRAFINE Branch III MINI PEN) 31 x 3/16 " Ndle insulin Yes 10 units Univer s lispro 7-14 with lunch ity of (HUMALOG 00:00: [place] KWIKPEN) 00 Medical 100 unit/mL Branch pen injector insulin Yes 10 units Univer s lispro 7-14 with lunch ity of (HUMALOG 00:00: [place] KWIKPEN) 00 Medical 100 unit/mL Branch pen injector insulin Yes 10 units Univer s lispro 7-14 with lunch ity of (HUMALOG 00:00: [place] KWIKPEN) Medical 100 unit/mL Branch pen injector Insulin Yes [id number] (four) Un sukhw[place], 7-14 times ity of Disposable, 00:00: daily. [place] (BD 00 Medical ULTRAFINE Branch III MINI PEN) 31 x 3/16 " Ndle insulin Yes 10 units Univer s lispro 7-14 with lunch ity of (HUMALOG 00:00: [place] KWIKPEN) 00 Medical 100 unit/mL Branch pen injector insulin Yes 10 units Univer s lispro 7-14 with lunch ity of (HUMALOG 00:00: [place] KWIKPEN) Medical 100 unit/mL Branch pen injector insulin Yes 10 units Univer s lispro 7-14 with lunch ity of (HUMALOG 00:00: [place] KWIKPEN) Medical 100 unit/mL Branch pen injector insulin 2022- No 10 units Unive rs lispro 7-14 08-25 with lunch ity of (HUMALOG 00:00: 00:00 [place] KWIKPEN) 00 :00 Medical 100 unit/mL Branch pen injector insulin 2022- No 10 units Unive rs lispro 7-14 08-25 with lunch ity of (HUMALOG 00:00: 00:00 [place] KWIKPEN) 00 :00 Medical 100 unit/mL Branch pen injector Insulin 2022- No [id number] 4 (four) U nivers [place], 7-14 05-26 times ity of Disposable, 00:00: 00:00 daily. [place] (BD 00 :00 Medical ULTRAFINE Branch III MINI PEN) 31 x 3/16 " Ndle Insulin Yes [id number] 45U inject 45 U nivers Glargine 4-07 Units ity of (LANTUS 00:00: under the [place] SOLOSTAR) 00 skin at Medical 100 unit/mL bedtime. Bran ch (3 mL) In Insulin Yes [id number] 45U inject 45 U nivers Glargine 4-07 Units ity of (LANTUS 00:00: under the [place] SOLOSTAR) 00 skin at Medical 100 unit/mL bedtime. Bran ch (3 mL) In Insulin Yes [id number] 45U inject 45 U nivers Glargine 4-07 Units ity of (LANTUS 00:00: under the [place] SOLOSTAR) 00 skin at Medical 100 unit/mL bedtime. Bran ch (3 mL) In Insulin Yes [id number] 45U inject 45 U nivers Glargine 4-07 Units ity of (LANTUS 00:00: under the [place] SOLOSTAR) 00 skin at Medical 100 unit/mL bedtime. Bran ch (3 mL) In Insulin Yes [id number] 45U inject 45 U nivers Glargine 4-07 Units ity of (LANTUS 00:00: under the [place] SOLOSTAR) 00 skin at Medical 100 unit/mL bedtime. Bran ch (3 mL) In Insulin Yes [id number] 45U inject 45 U nivers Glargine 4-07 Units ity of (LANTUS 00:00: under the [place] SOLOSTAR) 00 skin at Medical 100 unit/mL bedtime. Bran ch (3 mL) In Insulin 2021- No [id number] 45U inject 45 [facility] Glargine 4-07 12-28 Units ity of (LANTUS 00:00: 00:00 [place] 00 :00 skin at Medical 100 unit/mL bedtime. Bran ch (3 mL) In Insulin 2021- No [id number] 45U inject 45 [facility] Glargine 4-07 12-28 Units ity of (LANTUS 00:00: 00:00 under [place] 00 :00 skin at Medical 100 unit/mL bedtime. Bran ch (3 mL) In Insulin 2021- No [id number] 45U inject 45 [facility] Glargine 4-07 12-28 Units ity of (LANTUS 00:00: 00:00 [place] 00 :00 skin at Medical 100 unit/mL bedtime. Bran ch (3 mL) [facility] Insulin 2021- No [id number] 45U inject 45 [facility] Glargine 11-19 12-28 Units ity of (LANTUS 00:00: 00:00 [place] 00 :00 skin at Medical 100 unit/mL bedtime. Bran ch (3 mL) [facility] Insulin 2021- No [id number] 45U inject 45 [facility] Glargine 11-19 12-28 Units ity of (LANTUS 00:00: 00:00 under [place] 00 :00 skin at Medical 100 unit/mL bedtime. Bran ch (3 mL) [facility] glyBURIDE-m Yes [id number] Take two [facility] etformin 1-03 tablets ity of (GLUCOVANCE 00:00: twice a [place] ) 2.5-500 00 day with Medica l mg tablet meals. [place] glyBURIDE-m Yes [id number] Take two [facility] etformin 1-03 tablets ity of (GLUCOVANCE 00:00: twice a [place] ) 2.5-500 00 day with Medica l mg tablet meals. [place] glyBURIDE-m Yes [id number] Take two [facility] etformin 1-03 tablets ity of (GLUCOVANCE 00:00: twice a [place] ) 2.5-500 00 day with Medica l mg tablet meals. [place] glyBURIDE-m Yes [id number] Take two [facility] etformin 1-03 tablets ity of (GLUCOVANCE 00:00: twice a [place] ) 2.5-500 00 day with Medica l mg tablet meals. [place] glyBURIDE-m Yes [id number] Take two [facility] etformin 1-03 tablets ity of (GLUCOVANCE 00:00: twice a [place] ) 2.5-500 00 day with Medica l mg tablet meals. [place] glyBURIDE-m Yes [id number] Take two [facility] etformin 1-03 tablets ity of (GLUCOVANCE 00:00: twice a [place] ) 2.5-500 00 day with Medica l mg tablet meals. Branch glyBURIDE-m 2021- No [id number] Take two [facility] etformin 1- 12-28 tablets ity of (GLUCOVANCE 00:00: 00:00 [place] 2.5-500 00 :00 day with Medica l mg tablet meals. [place] ashleyBURIDE 2021- No [id number] Take two [facility] etformin 1- 12-28 tablets ity of (GLUCOVANCE 00:00: 00:00 [place] 2.5-500 00 :00 day with Medica l mg tablet meals. [place] ashleyBURIDE 2021- No [id number] Take two [facility] etformin 1- 12-28 tablets ity of (GLUCOVANCE 00:00: 00:00 [place] 2.5-500 00 :00 day with Medica l mg tablet meals. [place] ashleyBURIDE 2021- No [id number] Take two [facility] etformin 1- 12-28 tablets ity of (GLUCOVANCE 00:00: 00:00 [place] 2.5-500 00 :00 day with Medica l mg tablet meals. [place] ashleyBURIDE 2021- No [id number] Take two [facility] etformin 1- 12-28 tablets ity of (GLUCOVANCE 00:00: 00:00 [place] 2.5-500 00 :00 day with Medica l mg tablet meals. [place] nebivolol Yes [id number] 10mg Take 10 mg [facility] (BYSTOLIC) 9-20 by mouth ity o f 10 mg 15:47: daily. [address] aspirin 81 Yes [id number] 81mg Take 81 mg [facility] mg chewable 9-20 by mouth ity of tablet 15:47: daily. [address] cetirizine Yes 10mg Take 10 mg U nivers (ZYRTEC) 10 9-20 by mouth ity of mg tablet 15:47: daily. [address] cholecalcif Yes 1000U Take 1,000 [facility] [place], 9-20 Units by ity of vitamin D3, 15:47: mouth [place] (VITAMIN 32 daily. Medical D3) 1,000 Branch unit tablet vitamin Yes 1000ug Take 1,000 Un sukhwinder B-12 9-20 mcg by ity of (VITAMIN 15:47: mouth [place] B-12) 1,000 32 daily. Medica l mcg tablet Branch DOCOSAHEXAN Yes 1200mg Take 1,200 [facility] OIC 9-20 mg by ity of ACID/EPA 15:47: mouth. [place] (FISH OIL 32 Medical ORAL) Branch cilostazol Yes 100mg Take 100 Un sukhwinder (PLETAL) 9-20 mg by ity of 100 mg 15:47: mouth. [place] tablet Medical Branch nebivolol Yes [id number] 10mg Take 10 mg [facility] (BYSTOLIC) 9-20 by mouth ity o f 10 mg 15:47: daily. [address] aspirin 81 Yes [id number] 81mg Take 81 mg [facility] mg chewable 9-20 by mouth ity of tablet 15:47: daily. [address] cetirizine Yes 10mg Take 10 mg U nivers (ZYRTEC) 10 9-20 by mouth ity of mg tablet 15:47: daily. [address] cholecalcif Yes 1000U Take 1,000 [facility] [place], 9-20 Units by ity of vitamin D3, 15:47: mouth [place] (VITAMIN 32 daily. Medical D3) 1,000 Branch unit tablet vitamin Yes 1000ug Take 1,000 Un sukhwinder B-12 9-20 mcg by ity of (VITAMIN 15:47: mouth [place] B-12) 1,000 32 daily. Medica l mcg tablet Branch DOCOSAHEXAN Yes 1200mg Take 1,200 [facility] OIC 9-20 mg by ity of ACID/EPA 15:47: mouth. [place] (FISH OIL 32 Medical ORAL) Branch cilostazol Yes 100mg Take 100 Un sukhwinder (PLETAL) 9-20 mg by ity of 100 mg 15:47: mouth. [address] Branch nebivolol Yes [id number] 10mg Take 10 mg [facility] (BYSTOLIC) 9-20 by mouth ity o f 10 mg 10:47: daily. [address] aspirin 81 Yes [id number] 81mg Take 81 mg Univers mg chewable 9-20 by mouth ity of tablet 10:47: daily. [address] cetirizine Yes 10mg Take 10 mg U nivers (ZYRTEC) 10 9-20 by mouth ity of mg tablet 10:47: daily. [address] cholecalcif Yes 1000U Take 1,000 [facility] [place], 9-20 Units by ity of vitamin D3, 10:47: mouth [place] (VITAMIN 32 daily. Medical D3) 1,000 Branch unit tablet vitamin Yes 1000ug Take 1,000 Un sukhwinder B-12 9-20 mcg by ity of (VITAMIN 10:47: mouth [place] B-12) 1,000 32 daily. Medica l mcg tablet Branch DOCOSAHEXAN Yes 1200mg Take 1,200 [facility] OIC 9-20 mg by ity of ACID/EPA 10:47: mouth. [place] (FISH OIL 32 Medical ORAL) Branch cilostazol Yes 100mg Take 100 Un sukhwinder (PLETAL) 9-20 mg by ity of 100 mg 10:47: mouth. [place] [address] Medical [place] nebivolol Yes [id number] 10mg Take 10 mg [facility] (BYSTOLIC) 9-20 by mouth ity o f 10 mg 10:47: daily. [address] aspirin 81 Yes [id number] 81mg Take 81 mg [facility] mg chewable 9-20 by mouth ity of tablet 10:47: daily. [address] cetirizine Yes 10mg Take 10 mg U nivers (ZYRTEC) 10 9-20 by mouth ity of mg tablet 10:47: daily. [address] cholecalcif Yes 1000U Take 1,000 [facility] isabella, 9-20 Units by ity of vitamin D3, 10:47: mouth [place] (VITAMIN 32 daily. Medical D3) 1,000 Branch unit tablet vitamin Yes 1000ug Take 1,000 Un sukhwinder B-12 9-20 mcg by ity of (VITAMIN 10:47: mouth [place] B-12) 1,000 32 daily. Medica l mcg tablet Branch DOCOSAHEXAN Yes 1200mg Take 1,200 [facility] OIC 9-20 mg by ity of ACID/EPA 10:47: mouth. [place] (FISH OIL 32 Medical ORAL) Branch cilostazol Yes 100mg Take 100 Un sukhwinder (PLETAL) 9-20 mg by ity of 100 mg 10:47: mouth. [place] tablet Medical Branch nebivolol Yes [id number] 10mg Take 10 mg [facility] (BYSTOLIC) 9-20 by mouth ity o f 10 mg 10:47: daily. [place] [address] Medical Branch aspirin 81 Yes [id number] 81mg Take 81 mg [facility] mg chewable 9-20 by mouth ity of tablet 10:47: daily. [address] cetirizine Yes 10mg Take 10 mg U nivers (ZYRTEC) 10 9-20 by mouth ity of mg tablet 10:47: daily. [address] cholecalcif Yes 1000U Take 1,000 [facility] isabella, 9-20 Units by ity of vitamin D3, 10:47: mouth [place] (VITAMIN 32 daily. Medical D3) 1,000 Branch unit tablet vitamin Yes 1000ug Take 1,000 Un sukhwinder B-12 9-20 mcg by ity of (VITAMIN 10:47: mouth [place] B-12) 1,000 32 daily. Medica l mcg tablet Branch DOCOSAHEXAN Yes 1200mg Take 1,200 [facility] OIC 9-20 mg by ity of ACID/EPA 10:47: mouth. [place] (FISH OIL Medical ORAL) Branch cilostazol Yes 100mg Take 100 Un sukhwinder (PLETAL) 9-20 mg by ity of 100 mg 10:47: mouth. [place] [address] [facility] [place] nebivolol Yes [id number] 10mg Take 10 mg [facility] (BYSTOLIC) 9-20 by mouth ity o f 10 mg 10:47: daily. [place] [address] Medical Branch aspirin 81 Yes [id number] 81mg Take 81 mg [facility] mg chewable 9-20 by mouth ity of tablet 10:47: daily. [address] cetirizine Yes 10mg Take 10 mg U nivers (ZYRTEC) 10 9-20 by mouth ity of mg tablet 10:47: daily. [address] vitamin Yes 1000ug Take 1,000 Un sukhwinder B-12 9-20 mcg by ity of (VITAMIN 10:47: mouth [place] B-12) 1,000 32 daily. Medica l mcg tablet Branch nebivolol Yes [id number] 10mg Take 10 mg [facility] (BYSTOLIC) 9-20 by mouth ity o f 10 mg 10:47: daily. [address] aspirin 81 Yes [id number] 81mg Take 81 mg [facility] mg chewable 9-20 by mouth ity of tablet 10:47: daily. [address] cetirizine Yes 10mg Take 10 mg U nivers (ZYRTEC) 10 9-20 by mouth ity of mg tablet 10:47: daily. [address] vitamin Yes 1000ug Take 1,000 Un sukhwinder B-12 9-20 mcg by ity of (VITAMIN 10:47: mouth [place] B-12) 1,000 32 daily. Medica l mcg tablet [place] nebivolol Yes [id number] 10mg Take 10 mg [facility] (BYSTOLIC) 9-20 by mouth ity o f 10 mg 10:47: daily. [address] aspirin 81 Yes [id number] 81mg Take 81 mg [facility] mg chewable 9-20 by mouth ity of tablet 10:47: daily. [address] cetirizine Yes 10mg Take 10 mg U nivers (ZYRTEC) 10 9-20 by mouth ity of mg tablet 10:47: daily. [address] vitamin Yes 1000ug Take 1,000 Un sukhwinder B-12 9-20 mcg by ity of (VITAMIN 10:47: mouth [place] B-12) 1,000 32 daily. Medica l mcg tablet Branch nebivolol Yes [id number] 10mg Take 10 mg [facility] (BYSTOLIC) 9-20 by mouth ity o f 10 mg 10:47: daily. [address] vitamin Yes 1000ug Take 1,000 Un sukhwinder B-12 9-20 mcg by ity of (VITAMIN 10:47: mouth [place] B-12) 1,000 32 daily. Medica l mcg tablet Branch nebivolol Yes [id number] 10mg Take 10 mg [facility] (BYSTOLIC) 9-20 by mouth ity o f 10 mg 10:47: daily. [address] aspirin 81 Yes [id number] 81mg Take 81 mg [facility] mg chewable 9-20 by mouth ity of tablet 10:47: daily. [address] Branch cetirizine Yes 10mg Take 10 mg U nivers (ZYRTEC) 10 9-20 by mouth ity of mg tablet 10:47: daily. [address] Branch cholecalcif Yes 1000U Take 1,000 [facility] isabella, 9-20 Units by ity of vitamin D3, 10:47: mouth [place] (VITAMIN 32 daily. Medical D3) 1,000 Branch unit tablet vitamin Yes 1000ug Take 1,000 Un sukhwinder B-12 9-20 mcg by ity of (VITAMIN 10:47: mouth [place] B-12) 1,000 32 daily. Medica l mcg tablet Branch DOCOSAHEXAN Yes 1200mg Take 1,200 [facility] OIC 9-20 mg by ity of ACID/EPA 10:47: mouth. [place] (FISH OIL 32 Medical ORAL) Branch cilostazol Yes 100mg Take 100 Un sukhwinder (PLETAL) 9-20 mg by ity of 100 mg 10:47: mouth. [place] tablet 32 Medical Branch buPROPion Yes 150mg Take 1 Tab U nivers XL 6-24 by mouth ity of (WELLBUTRIN 00:00: [place]. [place] XL[place] 150 mg 00 Medical 24 hr Branch tablet losartan Yes [id number] 100mg Take 1 Tab [facility] (COZAAR) 6-24 by mouth ity of 100 mg 00:00: daily. [place] tablet 00 Medical Branch buPROPion Yes 150mg Take 1 Tab U nivers XL 6-24 by mouth ity of (WELLBUTRIN 00:00: [place]. [place] XL[place] 150 mg 00 Medical 24 hr Branch tablet losartan Yes [id number] 100mg Take 1 Tab [facility] (COZAAR) 6-24 by mouth ity of 100 mg 00:00: daily. [place] tablet 00 Medical Branch buPROPion Yes 150mg Take 1 Tab U nivers XL 6-24 by mouth ity of (WELLBUTRIN 00:00: [place]. [place] XL[place] 150 mg 00 Medical 24 hr Branch tablet losartan Yes [id number] 100mg Take 1 Tab [facility] (COZAAR) 6-24 by mouth ity of 100 mg 00:00: daily. [place] tablet 00 Medical Branch buPROPion Yes 150mg Take 1 Tab U nivers XL 6-24 by mouth ity of (WELLBUTRIN 00:00: [place]. [place] XL[place] 150 mg 00 Medical 24 hr Branch tablet losartan Yes [id number] 100mg Take 1 Tab [facility] (COZAAR) 6-24 by mouth ity of 100 mg 00:00: daily. [place] tablet Medical Branch losartan Yes [id number] 100mg Take 1 Tab [facility] (COZAAR) 6-24 by mouth ity of 100 mg 00:00: daily. [place] tablet Medical Branch losartan Yes [id number] 100mg Take 1 Tab [facility] (COZAAR) 6-24 by mouth ity of 100 mg 00:00: daily. [place] tablet Medical Branch losartan Yes [id number] 100mg Take 1 Tab [facility] (COZAAR) 6-24 by mouth ity of 100 mg 00:00: daily. [place] tablet [facility] Branch losartan Yes [id number] 100mg Take 1 Tab [facility] (COZAAR) 6-24 by mouth ity of 100 mg 00:00: daily. [place] tablet [facility] Branch losartan Yes [id number] 100mg Take 1 Tab [facility] (COZAAR) 6-24 by mouth ity of 100 mg 00:00: daily. [place] tablet Medical Branch losartan Yes [id number] 100mg Take 1 Tab [facility] (COZAAR) 6-24 by mouth ity of 100 mg 00:00: daily. [place] tablet Medical Branch losartan Yes [id number] 100mg Take 1 Tab [facility] (COZAAR) 6-24 by mouth ity of 100 mg 00:00: daily. [place] tablet [facility] Branch losartan Yes [id number] 100mg Take 1 Tab [facility] (COZAAR) 6-24 by mouth ity of 100 mg 00:00: daily. [place] tablet Medical Branch losartan Yes [id number] 100mg Take 1 Tab [facility] (COZAAR) 6-24 by mouth ity of 100 mg 00:00: daily. [place] tablet Medical Branch losartan Yes [id number] 100mg Take 1 Tab [facility] (COZAAR) 6-24 by mouth ity of 100 mg 00:00: daily. [place] tablet Medical Branch losartan Yes [id number] 100mg Take 1 Tab [facility] (COZAAR) 6-24 by mouth ity of 100 mg 00:00: daily. [place] tablet 00 Medical Branch losartan Yes [id number] 100mg Take 1 Tab [facility] (COZAAR) 6-24 by mouth ity of 100 mg 00:00: daily. [place] tablet 00 Medical Branch buPROPion Yes 150mg Take 1 Tab U nivers XL 6-24 by mouth ity of (WELLBUTRIN 00:00: [place]. [place] XL[place] 150 mg 00 Medical 24 hr Branch tablet losartan Yes [id number] 100mg Take 1 Tab [facility] (COZAAR) 6-24 by mouth ity of 100 mg 00:00: daily. [place] tablet 00 Medical Branch losartan Yes [id number] 100mg Take 1 Tab [facility] (COZAAR) 6-24 by mouth ity of 100 mg 00:00: daily. [place] tablet 00 Medical Branch losartan Yes [id number] 100mg Take 1 Tab [facility] (COZAAR) 6-24 by mouth ity of 100 mg 00:00: daily. [place] tablet 00 Medical Branch losartan Yes [id number] 100mg Take 1 Tab [facility] (COZAAR) 6-24 by mouth ity of 100 mg 00:00: daily. [place] tablet 00 Medical Branch losartan Yes [id number] 100mg Take 1 Tab [facility] (COZAAR) 6-24 by mouth ity of 100 mg 00:00: daily. [place] tablet 00 Medical Branch losartan Yes [id number] 100mg Take 1 Tab [facility] (COZAAR) 6-24 by mouth ity of 100 mg 00:00: daily. [place] tablet 00 Medical Branch losartan Yes [id number] 100mg Take 1 Tab [facility] (COZAAR) 6-24 by mouth ity of 100 mg 00:00: daily. [place] tablet 00 Medical Branch losartan Yes [id number] 100mg Take 1 Tab [facility] (COZAAR) 6-24 by mouth ity of 100 mg 00:00: daily. [place] tablet 00 Medical Branch losartan Yes [id number] 100mg Take 1 Tab [facility] (COZAAR) 6-24 by mouth ity of 100 mg 00:00: daily. [place] tablet 00 Medical Branch losartan Yes [id number] 100mg Take 1 Tab [facility] (COZAAR) 6-24 by mouth ity of 100 mg 00:00: daily. [place] tablet 00 Medical Branch losartan Yes [id number] 100mg Take 1 Tab [facility] (COZAAR) 6-24 by mouth ity of 100 mg 00:00: daily. [place] tablet 00 Medical Branch losartan Yes [id number] 100mg Take 1 Tab [facility] (COZAAR) 6-24 by mouth ity of 100 mg 00:00: daily. [place] tablet 00 Medical Branch losartan Yes [id number] 100mg Take 1 Tab [facility] (COZAAR) 6-24 by mouth ity of 100 mg 00:00: daily. [place] tablet 00 Medical Branch losartan Yes [id number] 100mg Take 1 Tab [facility] (COZAAR) 6-24 by mouth ity of 100 mg 00:00: daily. [place] tablet 00 Medical Branch buPROPion Yes 150mg Take 1 Tab U nivers XL 6-24 by mouth ity of (WELLBUTRIN 00:00: [place]. [place] XL[place] 150 mg 00 Medical 24 hr Branch tablet losartan Yes [id number] 100mg Take 1 Tab [facility] (COZAAR) 6-24 by mouth ity of 100 mg 00:00: daily. [place] tablet 00 Medical Branch losartan Yes [id number] 100mg Take 1 Tab [facility] (COZAAR) 6-24 by mouth ity of 100 mg 00:00: daily. [place] tablet 00 Medical Branch losartan Yes [id number] 100mg Take 1 Tab [facility] (COZAAR) 6-24 by mouth ity of 100 mg 00:00: daily. [place] tablet 00 Medical Branch losartan 2022- No [id number] 100mg Take 1 Tab [facility] (COZAAR) 6-24 - by mouth ity of 100 mg 00:00: 00:00 daily. [place] tablet 00 :00 Medical Branch losartan 2022- No [id number] 100mg Take 1 Tab [facility] (COZAAR) 6-24 - by mouth ity of 100 mg 00:00: 00:00 daily. [place] tablet 00 :00 Medical Branch buPROPion 2021- No 150mg Take 1 Tab [facility] XL 6-24 08-11 by mouth ity of (WELLBUTRIN 00:00: 00:00 daily. [place] XL) 150 mg 00 :00 Medical 24 hr Branch tablet buPROPion 2021- No 150mg Take 1 Tab [facility] XL 02-05 by mouth ity of (WELLBUTRIN 00:00: 00:00 daily. [place] XL) 150 mg 00 :00 Medical 24 hr Branch tablet buPROPion 2021- No 150mg Take 1 Tab [facility] XL 02-05 by mouth ity of (WELLBUTRIN 00:00: 00:00 daily. [place] XL) 150 mg 00 :00 Medical 24 hr Branch tablet buPROPion 2021- No 150mg Take 1 Tab [facility] XL 02-05 by mouth ity of (WELLBUTRIN 00:00: 00:00 daily. [place] XL) 150 mg 00 :00 Medical 24 hr Branch tablet buPROPion 2021- No 150mg Take 1 Tab [facility] XL 02-05 by mouth ity of (WELLBUTRIN 00:00: 00:00 daily. [place] XL) 150 mg 00 :00 Medical 24 hr Branch tablet blood sugar Yes 3 (three) U nivers diagnostic 5-31 times ity of (ASCENSIA 00:00: daily. [place] MICROFILL) Medical strip Branch blood sugar Yes 3 (three) U nivers diagnostic 5-31 times ity of (ASCENSIA 00:00: daily. [place] MICROFILL) Medical strip Branch blood sugar Yes 3 (three) U nivers diagnostic 5-31 times ity of (ASCENSIA 00:00: daily. [place] MICROFILL) Medical strip Branch blood sugar Yes 3 (three) U nivers diagnostic 5-31 times ity of (ASCENSIA 00:00: daily. [place] MICROFILL) Medical strip Branch blood sugar Yes 3 (three) U nivers diagnostic 5-31 times ity of (ASCENSIA 00:00: daily. [place] MICROFILL) Medical strip Branch blood sugar Yes 3 (three) U nivers diagnostic 5-31 times ity of (ASCENSIA 00:00: daily. [place] MICROFILL) Medical strip Branch blood sugar 2021- No 3 (three) [facility] diagnostic 5-31 12-28 times ity of (ASCENSIA 00:00: 00:00 daily. [place] MICROFILL) 00 :00 Medical strip Branch blood sugar 2021- No 3 (three) [facility] diagnostic - 12-28 times ity of (ASCENSIA 00:00: 00:00 daily. [place] MICROFILL) 00 :00 Medical strip Branch blood sugar 2021- No 3 (three) [facility] diagnostic - 12-28 times ity of (ASCENSIA 00:00: 00:00 daily. [place] MICROFILL) 00 :00 Medical strip Branch blood sugar 2021- No 3 (three) [facility] diagnostic - 12-28 times ity of (ASCENSIA 00:00: 00:00 daily. [place] MICROFILL) 00 :00 Medical strip Branch blood sugar 2021- No 3 (three) [facility] diagnostic 01-12 12-28 times ity of (ASCENSIA 00:00: 00:00 daily. [place] MICROFILL) 00 :00 Medical strip Branch Plavix 75 Plavix 75 No Plavix 75 MG MG MG Synjardy XR Synjardy XR No 1{table QD Synjardy 25-1000 MG 25-1000 MG t_with_ XR 25-[address]} hydroCHLORO hydroCHLORO No hydroCHLOR thiazide 25 thiazide 25 Othiazide MG MG 25 MG Aspir-81 81 Aspir-81 81 No 1{table QD Aspir-81 MG MG t} 81 MG Cozaar 100 Cozaar 100 No 1{table Cozaar 100 MG MG t} MG Cilostazol Cilostazol No 1{table QD Cilostazol 100 MG 100 MG t_30_mi 100 MG nutes_b efore_o r_2_hou rs_afte r_break fast_an d_dinne r} Plavix 75 Plavix 75 No 1{table QD Plavix 75 MG MG t} MG Rosuvastati Rosuvastati No Rosuvastat n Calcium n Calcium in Calcium 10 MG 10 MG 10 MG Trulicity Trulicity No Trulicity 1.5 1.5 1.5 MG/0.5ML MG/0.5ML MG/0.5ML HumaLOG HumaLOG No HumaLOG KwikPen 100 KwikPen 100 KwikPen UNIT/ML UNIT/ML 100 UNIT/ML hydroCHLORO hydroCHLORO No 1{table QD hydroCHLOR thiazide 25 thiazide 25 t_in_th Othiazide MG MG e_morni 25 MG ng} Lantus Lantus No Lantus SoloStar SoloStar SoloStar 100 UNIT/ML 100 UNIT/ML 100 UNIT/ML Pantoprazol Pantoprazol No Pantoprazo e Sodium 40 e Sodium 40 le Sodium MG MG 40 MG Losartan Losartan No Losartan Potassium Potassium Potassium 100 MG 100 MG 100 MG Crestor 10 Crestor 10 No Crestor 10 MG MG MG Nebivolol Nebivolol No Nebivolol HCl 20 MG HCl 20 MG HCl 20 MG Clopidogrel Clopidogrel No Clopidogre Bisulfate Bisulfate l 75 MG 75 MG Bisulfate 75 MG ZyrTEC ZyrTEC No 1{table QD ZyrTEC Allergy 10 Allergy 10 t} Allergy 10 MG MG MG Plavix 75 Plavix 75 No Plavix 75 MG MG MG Synjardy XR Synjardy XR No 1{table QD Synjardy 25-1000 MG 25-1000 MG t_with_ XR 25-[address]} hydroCHLORO hydroCHLORO No hydroCHLOR thiazide 25 thiazide 25 Othiazide MG MG 25 MG Aspir-81 81 Aspir-81 81 No 1{table QD Aspir-81 MG MG t} 81 MG Cozaar 100 Cozaar 100 No 1{table Cozaar 100 MG MG t} MG Cilostazol Cilostazol No 1{table QD Cilostazol 100 MG 100 MG t_30_mi 100 MG nutes_b efore_o r_2_hou rs_afte r_break fast_an d_dinne r} Plavix 75 Plavix 75 No 1{table QD Plavix 75 MG MG t} MG Rosuvastati Rosuvastati No Rosuvastat n Calcium n Calcium in Calcium 10 MG 10 MG 10 MG Trulicity Trulicity No Trulicity 1.5 1.5 1.5 MG/0.5ML MG/0.5ML MG/0.5ML HumaLOG HumaLOG No HumaLOG KwikPen 100 KwikPen 100 KwikPen UNIT/ML UNIT/ML 100 UNIT/ML hydroCHLORO hydroCHLORO No 1{table QD hydroCHLOR thiazide 25 thiazide 25 t_in_th Othiazide MG MG e_morni 25 MG ng} Lantus Lantus No Lantus SoloStar SoloStar SoloStar 100 UNIT/ML 100 UNIT/ML 100 UNIT/ML Pantoprazol Pantoprazol No Pantoprazo e Sodium 40 e Sodium 40 le Sodium MG MG 40 MG Losartan Losartan No Losartan Potassium Potassium Potassium 100 MG 100 MG 100 MG Crestor 10 Crestor 10 No Crestor 10 MG MG MG Nebivolol Nebivolol No Nebivolol HCl 20 MG HCl 20 MG HCl 20 MG Cilostazol Cilostazol No 1{table QD Cilostazol 100 MG 100 MG t_30_mi 100 MG nutes_b efore_o r_2_hou rs_afte r_break fast_an d_dinne r} Plavix 75 Plavix 75 No 1{table QD Plavix 75 MG MG t} MG HumaLOG HumaLOG No HumaLOG KwikPen 100 KwikPen 100 KwikPen UNIT/ML UNIT/ML 100 UNIT/ML Losartan Losartan No Losartan Potassium Potassium Potassium 100 MG 100 MG 100 MG Crestor 10 Crestor 10 No Crestor 10 MG MG MG Lantus Lantus No Lantus SoloStar SoloStar SoloStar 100 UNIT/ML 100 UNIT/ML 100 UNIT/ML ZyrTEC ZyrTEC No 1{table QD ZyrTEC Allergy 10 Allergy 10 t} Allergy 10 MG MG MG Clopidogrel Clopidogrel No Clopidogre Bisulfate Bisulfate l 75 MG 75 MG Bisulfate 75 MG Plavix 75 Plavix 75 No Plavix 75 MG MG MG Bystolic 20 Bystolic 20 No 1{table QD Bystolic MG MG t} 20 MG Nebivolol Nebivolol No Nebivolol HCl 20 MG HCl 20 MG HCl 20 MG Rosuvastati Rosuvastati No Rosuvastat n Calcium n Calcium in Calcium 10 MG 10 MG 10 MG Aspir-81 81 Aspir-81 81 No 1{table QD Aspir-81 MG MG t} 81 MG Losartan Losartan No Losartan Potassium Potassium Potassium 100 MG 100 MG 100 MG Pantoprazol Pantoprazol No Pantoprazo e Sodium 40 e Sodium 40 le Sodium MG MG 40 MG hydroCHLORO hydroCHLORO No hydroCHLOR thiazide 25 thiazide 25 Othiazide MG MG 25 MG hydroCHLORO hydroCHLORO No 1{table QD hydroCHLOR thiazide 25 thiazide 25 t_in_th Othiazide MG MG e_morni 25 MG ng} Trulicity Trulicity No Trulicity 1.5 1.5 1.5 MG/0.5ML MG/0.5ML MG/0.5ML Cozaar 100 Cozaar 100 No 1{table Cozaar 100 MG MG t} MG Cozaar 100 Cozaar 100 No 1{table Cozaar 100 MG MG t} MG Trulicity Trulicity No Trulicity 1.5 1.5 1.5 MG/0.5ML MG/0.5ML MG/0.5ML Losartan Losartan No Losartan Potassium Potassium Potassium 100 MG 100 MG 100 MG Aspir-81 81 Aspir-81 81 No 1{table QD Aspir-81 MG MG t} 81 MG ZyrTEC ZyrTEC No 1{table QD ZyrTEC Allergy 10 Allergy 10 t} Allergy 10 MG MG MG hydroCHLORO hydroCHLORO No hydroCHLOR thiazide 25 thiazide 25 Othiazide MG MG 25 MG HumaLOG HumaLOG No HumaLOG KwikPen 100 KwikPen 100 KwikPen UNIT/ML UNIT/ML 100 UNIT/ML Losartan Losartan No Losartan Potassium Potassium Potassium 100 MG 100 MG 100 MG Crestor 10 Crestor 10 No Crestor 10 MG MG MG Bystolic 20 Bystolic 20 No 1{table QD Bystolic MG MG t} 20 MG Clopidogrel Clopidogrel No Clopidogre Bisulfate Bisulfate l 75 MG 75 MG Bisulfate 75 MG hydroCHLORO hydroCHLORO No 1{table QD hydroCHLOR thiazide 25 thiazide 25 t_in_th Othiazide MG MG e_morni 25 MG ng} Lantus Lantus No Lantus SoloStar SoloStar SoloStar 100 UNIT/ML 100 UNIT/ML 100 UNIT/ML Cilostazol Cilostazol No 1{table QD Cilostazol 100 MG 100 MG t_30_mi 100 MG nutes_b efore_o r_2_hou rs_afte r_break fast_an d_dinne r} Plavix 75 Plavix 75 No 1{table QD Plavix 75 MG MG t} MG Pantoprazol Pantoprazol No Pantoprazo e Sodium 40 e Sodium 40 le Sodium MG MG 40 MG Nebivolol Nebivolol No Nebivolol HCl 20 MG HCl 20 MG HCl 20 MG Rosuvastati Rosuvastati No Rosuvastat n Calcium n Calcium in Calcium 10 MG 10 MG 10 MG Plavix 75 Plavix 75 No Plavix 75 MG MG MG ZyrTEC ZyrTEC No 1{table QD ZyrTEC Allergy 10 Allergy 10 t} Allergy 10 MG MG MG Acetaminoph Acetaminoph No 2{table QID Acetaminop en-Codeine en-Codeine t_as_ne hen-Codein #3 300-30 #3 300-30 eded} e #3 MG MG 300-30 MG Bystolic 20 Bystolic 20 No 1{table QD Bystolic MG MG t} 20 MG Cozaar 100 Cozaar 100 No 1{table Cozaar 100 MG MG t} MG Aspir-81 81 Aspir-81 81 No 1{table QD Aspir-81 MG MG t} 81 MG Plavix 75 Plavix 75 No Plavix 75 MG MG MG Cilostazol Cilostazol No 1{table QD Cilostazol 100 MG 100 MG t_30_mi 100 MG nutes_b efore_o r_2_hou rs_afte r_break fast_an d_dinne r} hydroCHLORO hydroCHLORO No 1{table QD hydroCHLOR thiazide 25 thiazide 25 t_in_th Othiazide MG MG e_morni 25 MG ng} Trulicity Trulicity No Trulicity 1.5 1.5 1.5 MG/0.5ML MG/0.5ML MG/0.5ML Nebivolol Nebivolol No Nebivolol HCl 20 MG HCl 20 MG HCl 20 MG Pantoprazol Pantoprazol No Pantoprazo e Sodium 40 e Sodium 40 le Sodium MG MG 40 MG Cyclobenzap Cyclobenzap No 1{table TID Cyclobenza rine HCl 5 rine HCl 5 t} bailey HCl MG MG 5 MG Losartan Losartan No Losartan Potassium Potassium Potassium 100 MG 100 MG 100 MG Losartan Losartan No Losartan Potassium Potassium Potassium 100 MG 100 MG 100 MG Rosuvastati Rosuvastati No Rosuvastat n Calcium n Calcium in Calcium 10 MG 10 MG 10 MG Plavix 75 Plavix 75 No 1{table QD Plavix 75 MG MG t} MG hydroCHLORO hydroCHLORO No hydroCHLOR thiazide 25 thiazide 25 Othiazide MG MG 25 MG Clopidogrel Clopidogrel No Clopidogre Bisulfate Bisulfate l 75 MG 75 MG Bisulfate 75 MG Lantus Lantus No Lantus SoloStar SoloStar SoloStar 100 UNIT/ML 100 UNIT/ML 100 UNIT/ML HumaLOG HumaLOG No HumaLOG KwikPen 100 KwikPen 100 KwikPen UNIT/ML UNIT/ML 100 UNIT/ML Crestor 10 Crestor 10 No Crestor 10 MG MG MG Losartan Losartan No Losartan Potassium Potassium Potassium 100 MG 100 MG 100 MG Cozaar 100 Cozaar 100 No 1{table Cozaar 100 MG MG t} MG Clopidogrel Clopidogrel No Clopidogre Bisulfate Bisulfate l 75 MG 75 MG Bisulfate 75 MG Plavix 75 Plavix 75 No Plavix 75 MG MG MG Bystolic 20 Bystolic 20 No 1{table QD Bystolic MG MG t} 20 MG HumaLOG HumaLOG No HumaLOG KwikPen 100 KwikPen 100 KwikPen UNIT/ML UNIT/ML 100 UNIT/ML Lantus Lantus No Lantus SoloStar SoloStar SoloStar 100 UNIT/ML 100 UNIT/ML 100 UNIT/ML Cilostazol Cilostazol No 1{table QD Cilostazol 100 MG 100 MG t_30_mi 100 MG nutes_b efore_o r_2_hou rs_afte r_break fast_an d_dinne r} Pantoprazol Pantoprazol No 1{table QD Pantoprazo e Sodium 40 e Sodium 40 t} le Sodium MG MG 40 MG ZyrTEC ZyrTEC No 1{table QD ZyrTEC Allergy 10 Allergy 10 t} Allergy 10 MG MG MG Rosuvastati Rosuvastati No 1{table QD Rosuvastat n Calcium n Calcium t} in Calcium 10MG 10MG 10MG Plavix 75 Plavix 75 No 1{table QD Plavix 75 MG MG t} MG hydroCHLORO hydroCHLORO No hydroCHLOR thiazide 25 thiazide 25 Othiazide MG MG 25 MG Crestor 10 Crestor 10 No Crestor 10 MG MG MG Trulicity Trulicity No Trulicity 1.5 1.5 1.5 MG/0.5ML MG/0.5ML MG/0.5ML Synjardy XR Synjardy XR No 1{table QD Synjardy 25-1000 MG 25-1000 MG t_with_ XR 25-[address]} acetaminoph acetaminoph No acetaminop [place] en 300 en 300 hen 300 [facility] mg-codeine mg-codeine mg-codeine dic 30 mg 30 mg 30 mg Sports tablet TAKE tablet TAKE tablet Medicin 2 TABLETS 2 TABLETS TAKE 2 e BY MOUTH BY MOUTH TABLETS BY EVERY 4-6 EVERY 4-6 MOUTH HOURS HOURS EVERY 4-6 NEEDED FOR NEEDED FOR HOURS PAIN PAIN NEEDED FOR CONTROL CONTROL PAIN CONTROL amoxicillin amoxicillin No amoxicilli [place] 500 500 n 500 [facility] mg-potassiu mg-potassiu mg-potassi dic m m um Sports clavulanate clavulanate clavulanat Medicin 125 mg 125 mg e 125 mg e tablet TAKE tablet TAKE tablet 1 TABLET BY 1 TABLET BY TAKE 1 MOUTH EVERY MOUTH EVERY TABLET BY 12 HOURS 12 HOURS MOUTH FOR 7 DAYS FOR 7 DAYS EVERY 12 HOURS FOR 7 DAYS BD Eden 2nd BD Eden 2nd No BD Eden Мария Gen Pen Gen Pen 2nd Gen [facility] e Needle 32 Needle 32 Pen Needle dic gauge x gauge x 32 gauge x Spo rts " USE " USE " USE Medicin DIRECTED DIRECTED e SUBCUTANEOU SUBCUTANEOU DIRECTED SLY 4 TIMES SLY 4 TIMES SUBCUTANEO A DAY A DAY USLY 4 TIMES A DAY BD BD No BD М[place] Ultra-Fine Ultra-Fine Ultra-Fine [facility] Mini Pen Mini Pen Mini Pen dic Needle 31 Needle 31 Needle 31 Sports gauge x gauge x gauge x Medici n 10/28" 10/28" 10/28" e DIRECTED 4 DIRECTED 4 DIRECTED 4 TIMES DAILY TIMES DAILY TIMES UNDER THE UNDER THE DAILY SKIN 90 SKIN 90 UNDER THE DAYS DAYS SKIN 90 DAYS cefpodoxime cefpodoxime No cefpodoxim [place] 200 mg 200 mg e 200 mg [facility] tablet TAKE tablet TAKE tablet dic 1 TABLET BY 1 TABLET BY TAKE 1 Sports MOUTH EVERY MOUTH EVERY TABLET BY Medicin 12 HOURS 12 HOURS MOUTH e FOR 10 DAYS FOR 10 DAYS EVERY 12 TAKE WITH TAKE WITH HOURS FOR FOOD FOOD 10 DAYS TAKE WITH FOOD clopidogrel clopidogrel No clopidogre [facility] 75 mg 75 mg l 75 mg [facility] tablet TAKE tablet TAKE tablet dic 1 TABLET BY 1 TABLET BY TAKE 1 Sports MOUTH EVERY MOUTH EVERY TABLET BY Medicin DAY DAY MOUTH e EVERY DAY cyclobenzap cyclobenzap No cyclobenza [facility] rine 5 mg rine 5 mg bailey 5 mg [facility] tablet TAKE tablet TAKE tablet dic 1 TABLET BY 1 TABLET BY TAKE 1 Sports MOUTH 3 MOUTH 3 TABLET BY Medi zoe TIMES A DAY TIMES A DAY MOUTH 3 e NEEDED NEEDED TIMES A FOR MUSCLE FOR MUSCLE DAY SPASM SPASM NEEDED FOR MUSCLE SPASM dexamethaso dexamethaso No dexamethas [place] ne 2 mg ne 2 mg one 2 mg [facility] pe tablet TAKE tablet TAKE tablet dic 1 TABLET BY 1 TABLET BY TAKE 1 Sports MOUTH 2 MOUTH 2 TABLET BY Medi zoe TIMES A DAY TIMES A DAY MOUTH 2 e TIMES A DAY diclofenac diclofenac No diclofenac [place] sodium 75 sodium 75 sodium 75 [facility] mg mg mg dic tablet,aleida tablet,aleida tablet,del Sports yed release yed release ayed M edicin TAKE 1 TAKE 1 release e TABLET BY TABLET BY TAKE 1 MOUTH 2 MOUTH 2 TABLET BY TIMES A DAY TIMES A DAY MOUTH 2 TIMES A DAY Humalog Humalog No Humalog [place] KwikPen KwikPen KwikPen Orth[facility] e (U-100) (U-100) (U-100) dic Insulin 100 Insulin 100 Insulin Sports unit/mL unit/mL 100 Medicin subcutaneou subcutaneou unit/mL e s 16-20 s 16-20 subcutaneo UNITS UNITS UNITS UNITS us 16-20 SUBCUTANEOU SUBCUTANEOU UNITS S THREE S THREE UNITS TIMES A DAY TIMES A DAY SUBCUTANEO BEFORE BEFORE US THREE MEALS 90 MEALS 90 TIMES A DAYS DAYS DAY BEFORE MEALS 90 DAYS icosapent icosapent No icosapent [facility] ethyl 1 ethyl 1 ethyl 1 Orthop e gram gram gram dic capsule capsule capsule Sports TAKE 2 TAKE 2 TAKE 2 Medicin CAPSULES BY CAPSULES BY CAPSULES e MOUTH TWICE MOUTH TWICE BY MOUTH A DAY WITH A DAY WITH TWICE A MEALS FOR MEALS FOR DAY WITH 90 DAYS 90 DAYS MEALS FOR 90 DAYS Lantus Lantus No Lantus [facility] Solostar Solostar Solostar Ort hope U-100 U-100 U-100 dic Insulin 100 Insulin 100 Insulin Sports unit/mL (3 unit/mL (3 100 Med icin mL) mL) unit/mL (3 e subcutaneou subcutaneou mL) s pen s pen subcutaneo INJECT INJECT us pen 37-45 UNITS 37-45 UNITS INJECT SUBCUTANEOU SUBCUTANEOU 37-45 SLY ONCE SLY ONCE UNITS DAILY DAILY SUBCUTANEO USLY ONCE DAILY losartan losartan No losartan Aza ezio 100 mg 100 mg 100 mg [facility] tablet TAKE tablet TAKE tablet dic 1 TABLET BY 1 TABLET BY TAKE 1 Sports MOUTH EVERY MOUTH EVERY TABLET BY Medicin DAY DAY MOUTH e EVERY DAY nebivolol nebivolol No nebivolol [facility] 20 mg 20 mg 20 mg [facility] tablet TAKE tablet TAKE tablet dic 1 TABLET BY 1 TABLET BY TAKE 1 Sports MOUTH EVERY MOUTH EVERY TABLET BY Medicin DAY DAY MOUTH e EVERY DAY ondansetron ondansetron No ondansetro [facility] HCl 4 mg HCl 4 mg n HCl 4 mg O rthope tablet TAKE tablet TAKE tablet dic 1 TABLET BY 1 TABLET BY TAKE 1 Sports MOUTH EVERY MOUTH EVERY TABLET BY Medicin 12 HOURS 12 HOURS MOUTH e NEEDED NEEDED EVERY 12 HOURS NEEDED OneTouch OneTouch No OneTouch Aza ezio Ultra Test Ultra Test Ultra Test [facility] strips USE strips USE strips USE dic TO CHECK TO CHECK TO CHECK Spo rts GLUCOSE 4 GLUCOSE 4 GLUCOSE 4 Medicin TIMES A DAY TIMES A DAY TIMES A e IN VITRO IN VITRO DAY IN VITRO pantoprazol pantoprazol No pantoprazo [facility] e 40 mg e 40 mg le 40 mg Ortho pe tablet,aleida tablet,aleida tablet,del dic yed release yed release ayed S ports TAKE 1 TAKE 1 release Medicin TABLET BY TABLET BY TAKE 1 e MOUTH EVERY MOUTH EVERY TABLET BY DAY DAY MOUTH EVERY DAY rosuvastati rosuvastati No rosuvastat [facility] n 10 mg n 10 mg in 10 mg Ortho pe tablet TAKE tablet TAKE tablet dic 1 TABLET BY 1 TABLET BY TAKE 1 Sports MOUTH EVERY MOUTH EVERY TABLET BY Medicin DAY DAY MOUTH e EVERY DAY Synjardy XR Synjardy XR No Synjardy [facility] 25 mg-1,000 25 mg-1,000 XR 25 [facility] mg tablet, mg tablet, mg-1,000 dic extended extended mg tablet, S ports release release extended Medic in TAKE 1 TAKE 1 release e TABLET BY TABLET BY TAKE 1 MOUTH EVERY MOUTH EVERY TABLET BY DAY WITH DAY WITH MOUTH BREAKFAST BREAKFAST EVERY DAY FOR 90 DAYS FOR 90 DAYS WITH BREAKFAST FOR 90 DAYS Trulicity 3 Trulicity 3 No Trulicity [facility] mg/0.5 mL mg/0.5 mL 3 mg/0.5 O rthope subcutaneou subcutaneou mL d ic s pen s pen subcutaneo Sports injector injector us pen Medic in INJECT 3MG INJECT 3MG injector e DIRECTED DIRECTED INJECT 3MG SUBCUTANEOU SUBCUTANEOU S ONCE A S ONCE A DIRECTED WEEK 30 WEEK 30 SUBCUTANEO DAYS DAYS US ONCE A WEEK 30 DAYS Trulicity Trulicity No Trulicity М[facility] 4.5 mg/0.5 4.5 mg/0.5 4.5 mg/0.5 Orthope mL mL mL dic subcutaneou subcutaneou subcutaneo Sports s pen s pen us pen Medicin injector injector injector e 4.5 MG 4.5 MG 4.5 MG DIRECTED DIRECTED DIRECTED SUBCUTANEOU SUBCUTANEOU SUBCUTANEO S ONCE A S ONCE A US ONCE A WEEK 90 WEEK 90 WEEK 90 DAYS DAYS DAYS acetaminoph acetaminoph No acetaminop [facility] en 300 en 300 hen 300 [facility] mg-codeine mg-codeine mg-codeine dic 30 mg 30 mg 30 mg Sports tablet TAKE tablet TAKE tablet Medicin 2 TABLETS 2 TABLETS TAKE 2 e BY MOUTH BY MOUTH TABLETS BY EVERY 4-6 EVERY 4-6 MOUTH HOURS HOURS EVERY 4-6 NEEDED FOR NEEDED FOR HOURS PAIN PAIN NEEDED FOR CONTROL CONTROL PAIN CONTROL amoxicillin amoxicillin No amoxicilli [facility] 500 500 n 500 [facility] mg-potassiu mg-potassiu mg-potassi dic m m um Sports clavulanate clavulanate clavulanat Medicin 125 mg 125 mg e 125 mg e tablet TAKE tablet TAKE tablet 1 TABLET BY 1 TABLET BY TAKE 1 MOUTH EVERY MOUTH EVERY TABLET BY 12 HOURS 12 HOURS MOUTH FOR 7 DAYS FOR 7 DAYS EVERY 12 HOURS FOR 7 DAYS BD Eden 2nd BD Eden 2nd No BD Eden [facility] Gen Pen Gen Pen 2nd Gen Orthop e Needle 32 Needle 32 Pen Needle dic gauge x gauge x 32 gauge x Spo rts " USE " USE " USE Medicin DIRECTED DIRECTED e SUBCUTANEOU SUBCUTANEOU DIRECTED SLY 4 TIMES SLY 4 TIMES SUBCUTANEO A DAY A DAY USLY 4 TIMES A DAY BD BD No BD [facility] Ultra-Fine Ultra-Fine Ultra-Fine [facility] Mini Pen Mini Pen Mini Pen dic Needle 31 Needle 31 Needle 31 Sports gauge x gauge x gauge x Medici n 10/28" 10/28" 10/28" e DIRECTED 4 DIRECTED 4 DIRECTED 4 TIMES DAILY TIMES DAILY TIMES UNDER THE UNDER THE DAILY SKIN 90 SKIN 90 UNDER THE DAYS DAYS SKIN 90 DAYS cefpodoxime cefpodoxime No cefpodoxim [facility] 200 mg 200 mg e 200 mg [facility] tablet TAKE tablet TAKE tablet dic 1 TABLET BY 1 TABLET BY TAKE 1 Sports MOUTH EVERY MOUTH EVERY TABLET BY Medicin 12 HOURS 12 HOURS MOUTH e FOR 10 DAYS FOR 10 DAYS EVERY 12 TAKE WITH TAKE WITH HOURS FOR FOOD FOOD 10 DAYS TAKE WITH FOOD clopidogrel clopidogrel No clopidogre [facility] 75 mg 75 mg l 75 mg [facility] tablet TAKE tablet TAKE tablet dic 1 TABLET BY 1 TABLET BY TAKE 1 Sports MOUTH EVERY MOUTH EVERY TABLET BY Medicin DAY IN THE DAY IN THE MOUTH e MORNING MORNING EVERY DAY IN THE MORNING codeine 10 codeine 10 No codeine 10 [facility] mg-guaifene mg-guaifene mg-guaifen [facility] sin 100 sin 100 esin 100 dic mg/5 mL mg/5 mL mg/5 mL Sports oral liquid oral liquid oral M edicin TAKE 10 ML TAKE 10 ML liquid e (ORAL) 3 (ORAL) 3 TAKE 10 ML TIMES PER TIMES PER (ORAL) 3 DAY DAY TIMES PER NEEDED FOR NEEDED FOR DAY COUGH COUGH NEEDED FOR COUGH cyclobenzap cyclobenzap No cyclobenza [facility] rine 5 mg rine 5 mg bailey 5 mg [facility] tablet TAKE tablet TAKE tablet dic 1 TABLET BY 1 TABLET BY TAKE 1 Sports MOUTH 3 MOUTH 3 TABLET BY Medi zoe TIMES A DAY TIMES A DAY MOUTH 3 e NEEDED NEEDED TIMES A FOR MUSCLE FOR MUSCLE DAY SPASM SPASM NEEDED FOR MUSCLE SPASM dexamethaso dexamethaso No dexamethas [facility] ne 2 mg ne 2 mg one 2 mg Ortho pe tablet TAKE tablet TAKE tablet dic 1 TABLET BY 1 TABLET BY TAKE 1 Sports MOUTH 2 MOUTH 2 TABLET BY Medi zoe TIMES A DAY TIMES A DAY MOUTH 2 e TIMES A DAY diclofenac diclofenac No diclofenac [facility] sodium 75 sodium 75 sodium 75 [facility] mg mg mg dic tablet,aleida tablet,aleida tablet,del Sports yed release yed release ayed M edicin TAKE 1 TAKE 1 release e TABLET BY TABLET BY TAKE 1 MOUTH 2 MOUTH 2 TABLET BY TIMES A DAY TIMES A DAY MOUTH 2 TIMES A DAY Humalog Humalog No Humalog [facility] KwikPen KwikPen KwikPen Orthop e (U-100) (U-100) (U-100) dic Insulin 100 Insulin 100 Insulin Sports unit/mL unit/mL 100 Medicin subcutaneou subcutaneou unit/mL e s 16-20 s 16-20 subcutaneo UNITS UNITS UNITS UNITS us 16-20 SUBCUTANEOU SUBCUTANEOU UNITS S THREE S THREE UNITS TIMES A DAY TIMES A DAY SUBCUTANEO BEFORE BEFORE US THREE MEALS 90 MEALS 90 TIMES A DAYS DAYS DAY BEFORE MEALS 90 DAYS icosapent icosapent No icosapent [facility] ethyl 1 ethyl 1 ethyl 1 Orthop e gram gram gram dic capsule capsule capsule Sports TAKE 2 TAKE 2 TAKE 2 Medicin CAPSULES BY CAPSULES BY CAPSULES e MOUTH TWICE MOUTH TWICE BY MOUTH A DAY WITH A DAY WITH TWICE A MEALS FOR MEALS FOR DAY WITH 90 DAYS 90 DAYS MEALS FOR 90 DAYS Lantus Lantus No Lantus [facility] Solostar Solostar Solostar Ort hope U-100 U-100 U-100 dic Insulin 100 Insulin 100 Insulin Sports unit/mL (3 unit/mL (3 100 Med icin mL) mL) unit/mL (3 e subcutaneou subcutaneou mL) s pen 37-50 s pen 37-50 subcutaneo UNITS UNITS us pen DIRECTED DIRECTED 37-50 SUBCUTANEOU SUBCUTANEOU UNITS S ONCE PER S ONCE PER DIRECTED DAY 90 DAYS DAY 90 DAYS SUBCUTANEO US ONCE PER DAY 90 DAYS losartan losartan No losartan Aza ezio 100 mg 100 mg 100 mg [facility] tablet TAKE tablet TAKE tablet dic 1 TABLET BY 1 TABLET BY TAKE 1 Sports MOUTH EVERY MOUTH EVERY TABLET BY Medicin DAY DAY MOUTH e EVERY DAY nebivolol nebivolol No nebivolol [facility] 20 mg 20 mg 20 mg [facility] tablet TAKE tablet TAKE tablet dic 1 TABLET BY 1 TABLET BY TAKE 1 Sports MOUTH EVERY MOUTH EVERY TABLET BY Medicin DAY DAY MOUTH e EVERY DAY ondansetron ondansetron No ondansetro [facility] HCl 4 mg HCl 4 mg n HCl 4 mg O rthope tablet TAKE tablet TAKE tablet dic 1 TABLET BY 1 TABLET BY TAKE 1 Sports MOUTH EVERY MOUTH EVERY TABLET BY Medicin 12 HOURS 12 HOURS MOUTH e NEEDED NEEDED EVERY 12 HOURS NEEDED OneTouch OneTouch No OneTouch Aza ezio Ultra Test Ultra Test Ultra Test [facility] strips USE strips USE strips USE dic TO CHECK TO CHECK TO CHECK Spo rts GLUCOSE 4 GLUCOSE 4 GLUCOSE 4 Medicin TIMES A DAY TIMES A DAY TIMES A e IN VITRO IN VITRO DAY IN VITRO pantoprazol pantoprazol No pantoprazo [facility] e 40 mg e 40 mg le 40 mg Ortho pe tablet,aleida tablet,aleida tablet,del dic yed release yed release ayed S ports TAKE 1 TAKE 1 release Medicin TABLET BY TABLET BY TAKE 1 e MOUTH EVERY MOUTH EVERY TABLET BY DAY DAY MOUTH EVERY DAY Paxlovid Paxlovid No Paxlovid Aza ezio 300 mg (150 300 mg (150 300 mg [facility] mg x 2)-100 mg x 2)-100 (150 mg x dic mg tablets mg tablets 2)-100 mg Sports in a dose in a dose tablets in Medicin pack (EUA) pack (EUA) a dose e TAKE 3 TAKE 3 pack (EUA) TABLETS BY TABLETS BY TAKE 3 MOUTH TWICE MOUTH TWICE TABLETS BY A DAY A DAY MOUTH DIRECTED ON DIRECTED ON TWICE A THE PACKAGE THE PACKAGE DAY DIRECTED ON THE PACKAGE rosuvastati rosuvastati No rosuvastat [facility] n 10 mg n 10 mg in 10 mg Ortho pe tablet TAKE tablet TAKE tablet dic 1 TABLET BY 1 TABLET BY TAKE 1 Sports MOUTH EVERY MOUTH EVERY TABLET BY Medicin DAY DAY MOUTH e EVERY DAY Synjardy XR Synjardy XR No Synjardy [facility] 25 mg-1,000 25 mg-1,000 XR 25 [facility] mg tablet, mg tablet, mg-1,000 dic extended extended mg tablet, S ports release release extended Medic in TAKE 1 TAKE 1 release e TABLET BY TABLET BY TAKE 1 MOUTH EVERY MOUTH EVERY TABLET BY DAY WITH DAY WITH MOUTH BREAKFAST BREAKFAST EVERY DAY FOR 90 DAYS FOR 90 DAYS WITH BREAKFAST FOR 90 DAYS Trulicity 3 Trulicity 3 No Trulicity [facility] mg/0.5 mL mg/0.5 mL 3 mg/0.5 O rthope subcutaneou subcutaneou mL d ic s pen s pen subcutaneo Sports injector injector us pen Medic in INJECT 3MG INJECT 3MG injector e DIRECTED DIRECTED INJECT 3MG SUBCUTANEOU SUBCUTANEOU S ONCE A S ONCE A DIRECTED WEEK 30 WEEK 30 SUBCUTANEO DAYS DAYS US ONCE A WEEK 30 DAYS Trulicity Trulicity No Trulicity [facility] 4.5 mg/0.5 4.5 mg/0.5 4.5 mg/0.5 [facility] mL mL mL dic subcutaneou subcutaneou subcutaneo Sports s pen s pen us pen Medicin injector injector injector e 4.5 MG 4.5 MG 4.5 MG DIRECTED DIRECTED DIRECTED SUBCUTANEOU SUBCUTANEOU SUBCUTANEO S ONCE A S ONCE A US ONCE A WEEK 90 WEEK 90 WEEK 90 DAYS DAYS DAYS BD BD No BD [facility] Ultra-Fine Ultra-Fine Ultra-Fine [facility] Mini Pen Mini Pen Mini Pen dic Needle 31 Needle 31 Needle 31 Sports gauge x gauge x gauge x Medici n 10/28" 10/28" 10/28" e DIRECTED 4 DIRECTED 4 DIRECTED 4 TIMES DAILY TIMES DAILY TIMES UNDER THE UNDER THE DAILY SKIN 90 SKIN 90 UNDER THE DAYS DAYS SKIN 90 DAYS cefpodoxime cefpodoxime No cefpodoxim [facility] 200 mg 200 mg e 200 mg [facility] tablet TAKE tablet TAKE tablet dic 1 TABLET BY 1 TABLET BY TAKE 1 Sports MOUTH EVERY MOUTH EVERY TABLET BY Medicin 12 HOURS 12 HOURS MOUTH e FOR 10 DAYS FOR 10 DAYS EVERY 12 TAKE WITH TAKE WITH HOURS FOR FOOD FOOD 10 DAYS TAKE WITH FOOD clopidogrel clopidogrel No clopidogre [facility] 75 mg 75 mg l 75 mg [facility] tablet TAKE tablet TAKE tablet dic 1 TABLET BY 1 TABLET BY TAKE 1 Sports MOUTH EVERY MOUTH EVERY TABLET BY Medicin DAY DAY MOUTH e EVERY DAY diclofenac diclofenac No diclofenac М[facility] sodium 75 sodium 75 sodium 75 [facility] mg mg mg dic tablet,aleida tablet,aleida tablet,del Sports yed release yed release ayed M edicin TAKE 1 TAKE 1 release e TABLET BY TABLET BY TAKE 1 MOUTH TWICE MOUTH TWICE TABLET BY A DAY A DAY MOUTH TWICE A DAY Humalog Humalog No Humalog [facility] KwikPen KwikPen KwikPen Orth[facility] e (U-100) (U-100) (U-100) dic Insulin 100 Insulin 100 Insulin Sports unit/mL unit/mL 100 Medicin subcutaneou subcutaneou unit/mL e s INJECT s INJECT subcutaneo 16-20 UNITS 16-20 UNITS us INJECT UNITS UNITS 16-20 SUBCUTANEOU SUBCUTANEOU UNITS S THREE S THREE UNITS TIMES A DAY TIMES A DAY SUBCUTANEO BEFORE BEFORE US THREE MEALS 90 MEALS 90 TIMES A DAYS DAYS DAY BEFORE MEALS 90 DAYS icosapent icosapent No icosapent [facility] ethyl 1 ethyl 1 ethyl 1 Orthop e gram gram gram dic capsule capsule capsule Sports TAKE 2 TAKE 2 TAKE 2 Medicin CAPSULES BY CAPSULES BY CAPSULES e MOUTH TWICE MOUTH TWICE BY MOUTH A DAY WITH A DAY WITH TWICE A MEALS FOR MEALS FOR DAY WITH 90 DAYS 90 DAYS MEALS FOR 90 DAYS Lantus Lantus No Lantus [facility] Solostar Solostar Solostar Ort hope U-100 U-100 U-100 dic Insulin 100 Insulin 100 Insulin Sports unit/mL (3 unit/mL (3 100 Med icin mL) mL) unit/mL (3 e subcutaneou subcutaneou mL) s pen s pen subcutaneo INJECT INJECT us pen 37-45 UNITS 37-45 UNITS INJECT SUBCUTANEOU SUBCUTANEOU 37-45 SLY ONCE SLY ONCE UNITS DAILY DAILY SUBCUTANEO USLY ONCE DAILY losartan losartan No losartan Aza ezio 100 mg 100 mg 100 mg [facility] tablet TAKE tablet TAKE tablet dic 1 TABLET BY 1 TABLET BY TAKE 1 Sports MOUTH EVERY MOUTH EVERY TABLET BY Medicin DAY DAY MOUTH e EVERY DAY nebivolol nebivolol No nebivolol [facility] 20 mg 20 mg 20 mg [facility] tablet TAKE tablet TAKE tablet dic 1 TABLET BY 1 TABLET BY TAKE 1 Sports MOUTH EVERY MOUTH EVERY TABLET BY Medicin DAY DAY MOUTH e EVERY DAY ondansetron ondansetron No ondansetro [facility] HCl 4 mg HCl 4 mg n HCl 4 mg O rthope tablet TAKE tablet TAKE tablet dic 1 TABLET BY 1 TABLET BY TAKE 1 Sports MOUTH EVERY MOUTH EVERY TABLET BY Medicin 12 HOURS 12 HOURS MOUTH e NEEDED NEEDED EVERY 12 HOURS NEEDED OneTouch OneTouch No OneTouch Aza ezio Ultra Test Ultra Test Ultra Test [facility] strips USE strips USE strips USE dic TO CHECK TO CHECK TO CHECK Spo rts GLUCOSE 4 GLUCOSE 4 GLUCOSE 4 Medicin TIMES A DAY TIMES A DAY TIMES A e IN VITRO IN VITRO DAY IN VITRO pantoprazol pantoprazol No pantoprazo М[facility] e 40 mg e 40 mg le 40 mg Ortho pe tablet,aleida tablet,aleida tablet,del dic yed release yed release ayed S ports TAKE 1 TAKE 1 release Medicin TABLET BY TABLET BY TAKE 1 e MOUTH EVERY MOUTH EVERY TABLET BY DAY DAY MOUTH EVERY DAY rosuvastati rosuvastati No rosuvastat [facility] n 10 mg n 10 mg in 10 mg Ortho pe tablet TAKE tablet TAKE tablet dic 1 TABLET BY 1 TABLET BY TAKE 1 Sports MOUTH EVERY MOUTH EVERY TABLET BY Medicin DAY DAY MOUTH e EVERY DAY Synjardy XR Synjardy XR No Synjardy М[facility] 25 mg-1,000 25 mg-1,000 XR 25 [facility] mg tablet, mg tablet, mg-1,000 dic extended extended mg tablet, S ports release release extended Medic in TAKE 1 TAKE 1 release e TABLET BY TABLET BY TAKE 1 MOUTH EVERY MOUTH EVERY TABLET BY DAY WITH DAY WITH MOUTH BREAKFAST BREAKFAST EVERY DAY FOR 90 DAYS FOR 90 DAYS WITH BREAKFAST FOR 90 DAYS Trulicity 3 Trulicity 3 No Trulicity М[facility] mg/0.5 mL mg/0.5 mL 3 mg/0.5 O rthope subcutaneou subcutaneou mL d ic s pen s pen subcutaneo Sports injector injector us pen Medic in INJECT 3MG INJECT 3MG injector e DIRECTED DIRECTED INJECT 3MG SUBCUTANEOU SUBCUTANEOU S ONCE A S ONCE A DIRECTED WEEK 30 WEEK 30 SUBCUTANEO DAYS DAYS US ONCE A WEEK 30 DAYS Trulicity Trulicity No Trulicity М[facility] 4.5 mg/0.5 4.5 mg/0.5 4.5 mg/0.5 [facility] mL mL mL dic subcutaneou subcutaneou subcutaneo Sports s pen s pen us pen Medicin injector injector injector e 4.5 MG 4.5 MG 4.5 MG DIRECTED DIRECTED DIRECTED SUBCUTANEOU SUBCUTANEOU SUBCUTANEO S ONCE A S ONCE A US ONCE A WEEK 90 WEEK 90 WEEK 90 DAYS DAYS DAYS BD BD No BD М[facility] Ultra-Fine Ultra-Fine Ultra-Fine [facility] Mini Pen Mini Pen Mini Pen dic Needle 31 Needle 31 Needle 31 Sports gauge x gauge x gauge x Medici n 10/28" 10/28" 10/28" e DIRECTED 4 DIRECTED 4 DIRECTED 4 TIMES DAILY TIMES DAILY TIMES UNDER THE UNDER THE DAILY SKIN 90 SKIN 90 UNDER THE DAYS DAYS SKIN 90 DAYS cefpodoxime cefpodoxime No cefpodoxim М[facility] 200 mg 200 mg e 200 mg [facility] tablet TAKE tablet TAKE tablet dic 1 TABLET BY 1 TABLET BY TAKE 1 Sports MOUTH EVERY MOUTH EVERY TABLET BY Medicin 12 HOURS 12 HOURS MOUTH e FOR 10 DAYS FOR 10 DAYS EVERY 12 TAKE WITH TAKE WITH HOURS FOR FOOD FOOD 10 DAYS TAKE WITH FOOD clopidogrel clopidogrel No clopidogre [facility] 75 mg 75 mg l 75 mg [facility] tablet TAKE tablet TAKE tablet dic 1 TABLET BY 1 TABLET BY TAKE 1 Sports MOUTH EVERY MOUTH EVERY TABLET BY Medicin DAY DAY MOUTH e EVERY DAY diclofenac diclofenac No diclofenac М[facility]ия sodium 75 sodium 75 sodium 75 [facility] mg mg mg dic tablet,aleida tablet,aleida tablet,del Sports yed release yed release ayed M edicin TAKE 1 TAKE 1 release e TABLET BY TABLET BY TAKE 1 MOUTH TWICE MOUTH TWICE TABLET BY A DAY A DAY MOUTH TWICE A DAY Humalog Humalog No Humalog [facility] KwikPen KwikPen KwikPen Orthop e (U-100) (U-100) (U-100) dic Insulin 100 Insulin 100 Insulin Sports unit/mL unit/mL 100 Medicin subcutaneou subcutaneou unit/mL e s INJECT s INJECT subcutaneo 16-20 UNITS 16-20 UNITS us INJECT UNITS UNITS 16-20 SUBCUTANEOU SUBCUTANEOU UNITS S THREE S THREE UNITS TIMES A DAY TIMES A DAY SUBCUTANEO BEFORE BEFORE US THREE MEALS 90 MEALS 90 TIMES A DAYS DAYS DAY BEFORE MEALS 90 DAYS icosapent icosapent No icosapent М[facility] ethyl 1 ethyl 1 ethyl 1 Orthop e gram gram gram dic capsule capsule capsule Sports TAKE 2 TAKE 2 TAKE 2 Medicin CAPSULES BY CAPSULES BY CAPSULES e MOUTH TWICE MOUTH TWICE BY MOUTH A DAY WITH A DAY WITH TWICE A MEALS FOR MEALS FOR DAY WITH 90 DAYS 90 DAYS MEALS FOR 90 DAYS Lantus Lantus No Lantus М[facility] Solostar Solostar Solostar Ort hope U-100 U-100 U-100 dic Insulin 100 Insulin 100 Insulin Sports unit/mL (3 unit/mL (3 100 Med icin mL) mL) unit/mL (3 e subcutaneou subcutaneou mL) s pen s pen subcutaneo INJECT INJECT us pen 37-45 UNITS 37-45 UNITS INJECT SUBCUTANEOU SUBCUTANEOU 37-45 SLY ONCE SLY ONCE UNITS DAILY DAILY SUBCUTANEO USLY ONCE DAILY losartan losartan No losartan Aza ezio 100 mg 100 mg 100 mg [facility] tablet TAKE tablet TAKE tablet dic 1 TABLET BY 1 TABLET BY TAKE 1 Sports MOUTH EVERY MOUTH EVERY TABLET BY Medicin DAY DAY MOUTH e EVERY DAY nebivolol nebivolol No nebivolol [facility] 20 mg 20 mg 20 mg [facility] tablet TAKE tablet TAKE tablet dic 1 TABLET BY 1 TABLET BY TAKE 1 Sports MOUTH EVERY MOUTH EVERY TABLET BY Medicin DAY DAY MOUTH e EVERY DAY ondansetron ondansetron No ondansetro [facility] HCl 4 mg HCl 4 mg n HCl 4 mg O rthope tablet TAKE tablet TAKE tablet dic 1 TABLET BY 1 TABLET BY TAKE 1 Sports MOUTH EVERY MOUTH EVERY TABLET BY Medicin 12 HOURS 12 HOURS MOUTH e NEEDED NEEDED EVERY 12 HOURS NEEDED OneTouch OneTouch No OneTouch Aza ezio Ultra Test Ultra Test Ultra Test [facility] strips USE strips USE strips USE dic TO CHECK TO CHECK TO CHECK Spo rts GLUCOSE 4 GLUCOSE 4 GLUCOSE 4 Medicin TIMES A DAY TIMES A DAY TIMES A e IN VITRO IN VITRO DAY IN VITRO pantoprazol pantoprazol No pantoprazo М[facility]ия e 40 mg e 40 mg le 40 mg Ortho pe tablet,aleida tablet,aleida tablet,del dic yed release yed release ayed S ports TAKE 1 TAKE 1 release Medicin TABLET BY TABLET BY TAKE 1 e MOUTH EVERY MOUTH EVERY TABLET BY DAY DAY MOUTH EVERY DAY rosuvastati rosuvastati No rosuvastat М[facility]ия n 10 mg n 10 mg in 10 mg Ortho pe tablet TAKE tablet TAKE tablet dic 1 TABLET BY 1 TABLET BY TAKE 1 Sports MOUTH EVERY MOUTH EVERY TABLET BY Medicin DAY DAY MOUTH e EVERY DAY Synjardy XR Synjardy XR No Synjardy Мария 25 mg-1,000 25 mg-1,000 XR 25 [facility] mg tablet, mg tablet, mg-1,000 dic extended extended mg tablet, S ports release release extended Medic in TAKE 1 TAKE 1 release e TABLET BY TABLET BY TAKE 1 MOUTH EVERY MOUTH EVERY TABLET BY DAY WITH DAY WITH MOUTH BREAKFAST BREAKFAST EVERY DAY FOR 90 DAYS FOR 90 DAYS WITH BREAKFAST FOR 90 DAYS Trulicity 3 Trulicity 3 No Trulicity Мар[facility] mg/0.5 mL mg/0.5 mL 3 mg/0.5 O rthope subcutaneou subcutaneou mL d ic s pen s pen subcutaneo Sports injector injector us pen Medic in INJECT 3MG INJECT 3MG injector e DIRECTED DIRECTED INJECT 3MG SUBCUTANEOU SUBCUTANEOU S ONCE A S ONCE A DIRECTED WEEK 30 WEEK 30 SUBCUTANEO DAYS DAYS US ONCE A WEEK 30 DAYS Trulicity Trulicity No Trulicity Мария 4.5 mg/0.5 4.5 mg/0.5 4.5 mg/0.5 Orthope mL mL mL dic subcutaneou subcutaneou subcutaneo Sports s pen s pen us pen Medicin injector injector injector e 4.5 MG 4.5 MG 4.5 MG DIRECTED DIRECTED DIRECTED SUBCUTANEOU SUBCUTANEOU SUBCUTANEO S ONCE A S ONCE A US ONCE A WEEK 90 WEEK 90 WEEK 90 DAYS DAYS DAYS Crestor Crestor Yes Na Mccracken TAKE 1 Comm on TABLET BY Spirit MOUTH ONCE - [facility] A DAY [facility] Aspir-81 81 Aspir-81 81 No 1{table QD Aspir-81 MG MG t} 81 MG hydroCHLORO hydroCHLORO No 1{table QD hydroCHLOR thiazide 25 thiazide 25 t_in_th Othiazide MG MG e_morni 25 MG ng} Losartan Losartan No Losartan Potassium Potassium Potassium 100 MG 100 MG 100 MG Cozaar 100 Cozaar 100 No 1{table Cozaar 100 MG MG t} MG Clopidogrel Clopidogrel No Clopidogre Bisulfate Bisulfate l 75 MG 75 MG Bisulfate 75 MG Plavix 75 Plavix 75 No Plavix 75 MG MG MG Bystolic 20 Bystolic 20 No 1{table QD Bystolic MG MG t} 20 MG HumaLOG HumaLOG No HumaLOG KwikPen 100 KwikPen 100 KwikPen UNIT/ML UNIT/ML 100 UNIT/ML Lantus Lantus No Lantus SoloStar SoloStar SoloStar 100 UNIT/ML 100 UNIT/ML 100 UNIT/ML Cilostazol Cilostazol No 1{table QD Cilostazol 100 MG 100 MG t_30_mi 100 MG nutes_b efore_o r_2_hou rs_afte r_break fast_an d_dinne r} Pantoprazol Pantoprazol No 1{table QD Pantoprazo e Sodium 40 e Sodium 40 t} le Sodium MG MG 40 MG ZyrTEC ZyrTEC No 1{table QD ZyrTEC Allergy 10 Allergy 10 t} Allergy 10 MG MG MG Rosuvastati Rosuvastati No 1{table QD Rosuvastat n Calcium n Calcium t} in Calcium 10MG 10MG 10MG Plavix 75 Plavix 75 No 1{table QD Plavix 75 MG MG t} MG hydroCHLORO hydroCHLORO No hydroCHLOR thiazide 25 thiazide 25 Othiazide MG MG 25 MG Crestor 10 Crestor 10 No Crestor 10 MG MG MG Trulicity Trulicity No Trulicity 1.5 1.5 1.5 MG/0.5ML MG/0.5ML MG/0.5ML Synjardy XR Synjardy XR No 1{table QD Synjardy 25-1000 MG 25-1000 MG t_with_ XR 25-[address]} Aspir-81 81 Aspir-81 81 No 1{table QD Aspir-81 MG MG t} 81 MG hydroCHLORO hydroCHLORO No 1{table QD hydroCHLOR thiazide 25 thiazide 25 t_in_th Othiazide MG MG e_morni 25 MG ng} Pantoprazol Pantoprazol No 1{table QD Pantoprazo e Sodium 40 e Sodium 40 t} le Sodium MG MG 40 MG HumaLOG HumaLOG No HumaLOG KwikPen 100 KwikPen 100 KwikPen UNIT/ML UNIT/ML 100 UNIT/ML Synjardy XR Synjardy XR No 1{table QD Synjardy 25-1000 MG 25-1000 MG t_with_ XR 25-[address]} Cilostazol Cilostazol No 1{table QD Cilostazol 100 MG 100 MG t_30_mi 100 MG nutes_b efore_o r_2_hou rs_afte r_break fast_an d_dinne r} Crestor 10 Crestor 10 No Crestor 10 MG MG MG Plavix 75 Plavix 75 No 1{table QD Plavix 75 MG MG t} MG Cozaar 100 Cozaar 100 No 1{table Cozaar 100 MG MG t} MG Bystolic 20 Bystolic 20 No 1{table QD Bystolic MG MG t} 20 MG Trulicity Trulicity No Trulicity 1.5 1.5 1.5 MG/0.5ML MG/0.5ML MG/0.5ML hydroCHLORO hydroCHLORO No 1{table QD hydroCHLOR thiazide 25 thiazide 25 t_in_th Othiazide MG MG e_morni 25 MG ng} ZyrTEC ZyrTEC No 1{table QD ZyrTEC Allergy 10 Allergy 10 t} Allergy 10 MG MG MG hydroCHLORO hydroCHLORO No hydroCHLOR thiazide 25 thiazide 25 Othiazide MG MG 25 MG Lantus Lantus No Lantus SoloStar SoloStar SoloStar 100 UNIT/ML 100 UNIT/ML 100 UNIT/ML Rosuvastati Rosuvastati No 1{table QD Rosuvastat n Calcium n Calcium t} in Calcium 10MG 10MG 10MG Plavix 75 Plavix 75 No Plavix 75 MG MG MG Losartan Losartan No Losartan Potassium Potassium Potassium 100 MG 100 MG 100 MG Aspir-81 81 Aspir-81 81 No 1{table QD Aspir-81 MG MG t} 81 MG Clopidogrel Clopidogrel No Clopidogre Bisulfate Bisulfate l 75 MG 75 MG Bisulfate 75 MG Pantoprazol Pantoprazol No 1{table QD Pantoprazo e Sodium 40 e Sodium 40 t} le Sodium MG MG 40 MG HumaLOG HumaLOG No HumaLOG KwikPen 100 KwikPen 100 KwikPen UNIT/ML UNIT/ML 100 UNIT/ML Synjardy XR Synjardy XR No 1{table QD Synjardy 25-1000 MG 25-1000 MG t_with_ XR 25-[address]} Cilostazol Cilostazol No 1{table QD Cilostazol 100 MG 100 MG t_30_mi 100 MG nutes_b efore_o r_2_hou rs_afte r_break fast_an d_dinne r} Crestor 10 Crestor 10 No Crestor 10 MG MG MG Plavix 75 Plavix 75 No 1{table QD Plavix 75 MG MG t} MG Cozaar 100 Cozaar 100 No 1{table Cozaar 100 MG MG t} MG Bystolic 20 Bystolic 20 No 1{table QD Bystolic MG MG t} 20 MG Trulicity Trulicity No Trulicity 1.5 1.5 1.5 MG/0.5ML MG/0.5ML MG/0.5ML hydroCHLORO hydroCHLORO No 1{table QD hydroCHLOR thiazide 25 thiazide 25 t_in_th Othiazide MG MG e_morni 25 MG ng} ZyrTEC ZyrTEC No 1{table QD ZyrTEC Allergy 10 Allergy 10 t} Allergy 10 MG MG MG hydroCHLORO hydroCHLORO No hydroCHLOR thiazide 25 thiazide 25 Othiazide MG MG 25 MG Lantus Lantus No Lantus SoloStar SoloStar SoloStar 100 UNIT/ML 100 UNIT/ML 100 UNIT/ML Rosuvastati Rosuvastati No 1{table QD Rosuvastat n Calcium n Calcium t} in Calcium 10MG 10MG 10MG Plavix 75 Plavix 75 No Plavix 75 MG MG MG Losartan Losartan No Losartan Potassium Potassium Potassium 100 MG 100 MG 100 MG Aspir-81 81 Aspir-81 81 No 1{table QD Aspir-81 MG MG t} 81 MG Clopidogrel Clopidogrel No Clopidogre Bisulfate Bisulfate l 75 MG 75 MG Bisulfate 75 MG Lantus Lantus No Lantus SoloStar SoloStar SoloStar 100 UNIT/ML 100 UNIT/ML 100 UNIT/ML Rosuvastati Rosuvastati No 1{table QD Rosuvastat n Calcium n Calcium t} in Calcium 10MG 10MG 10MG Trulicity Trulicity No Trulicity 1.5 1.5 1.5 MG/0.5ML MG/0.5ML MG/0.5ML Plavix 75 Plavix 75 No 1{table QD Plavix 75 MG MG t} MG Clopidogrel Clopidogrel No Clopidogre Bisulfate Bisulfate l 75 MG 75 MG Bisulfate 75 MG Losartan Losartan No Losartan Potassium Potassium Potassium 100 MG 100 MG 100 MG Cozaar 100 Cozaar 100 No 1{table Cozaar 100 MG MG t} MG Plavix 75 Plavix 75 No Plavix 75 MG MG MG ZyrTEC ZyrTEC No 1{table QD ZyrTEC Allergy 10 Allergy 10 t} Allergy 10 MG MG MG hydroCHLORO hydroCHLORO No 1{table QD hydroCHLOR thiazide 25 thiazide 25 t_in_th Othiazide MG MG e_morni 25 MG ng} Cilostazol Cilostazol No 1{table QD Cilostazol 100 MG 100 MG t_30_mi 100 MG nutes_b efore_o r_2_hou rs_afte r_break fast_an d_dinne r} hydroCHLORO hydroCHLORO No hydroCHLOR thiazide 25 thiazide 25 Othiazide MG MG 25 MG Synjardy XR Synjardy XR No 1{table QD Synjardy 25-1000 MG 25-1000 MG t_with_ XR 25-[address]} Crestor 10 Crestor 10 No Crestor 10 MG MG MG Pantoprazol Pantoprazol No 1{table QD Pantoprazo e Sodium 40 e Sodium 40 t} le Sodium MG MG 40 MG HumaLOG HumaLOG No HumaLOG KwikPen 100 KwikPen 100 KwikPen UNIT/ML UNIT/ML 100 UNIT/ML Bystolic 20 Bystolic 20 No 1{table QD Bystolic MG MG t} 20 MG Aspir-81 81 Aspir-81 81 No 1{table QD Aspir-81 MG MG t} 81 MG Plavix 75 Plavix 75 No Plavix 75 MG MG MG Lantus Lantus No Lantus SoloStar SoloStar SoloStar 100 UNIT/ML 100 UNIT/ML 100 UNIT/ML Rosuvastati Rosuvastati No Rosuvastat n Calcium n Calcium in Calcium 10 MG 10 MG 10 MG hydroCHLORO hydroCHLORO No 1{table QD hydroCHLOR thiazide 25 thiazide 25 t_in_th Othiazide MG MG e_morni 25 MG ng} HumaLOG HumaLOG No HumaLOG KwikPen 100 KwikPen 100 KwikPen UNIT/ML UNIT/ML 100 UNIT/ML Aspir-81 81 Aspir-81 81 No 1{table QD Aspir-81 MG MG t} 81 MG Losartan Losartan No Losartan Potassium Potassium Potassium 100 MG 100 MG 100 MG Plavix 75 Plavix 75 No 1{table QD Plavix 75 MG MG t} MG Cozaar 100 Cozaar 100 No 1{table Cozaar 100 MG MG t} MG Crestor 10 Crestor 10 No Crestor 10 MG MG MG Bystolic 20 Bystolic 20 No 1{table QD Bystolic MG MG t} 20 MG Synjardy XR Synjardy XR No 1{table QD Synjardy 25-1000 MG 25-1000 MG t_with_ XR 25-[address]} hydroCHLORO hydroCHLORO No hydroCHLOR thiazide 25 thiazide 25 Othiazide MG MG 25 MG Pantoprazol Pantoprazol No Pantoprazo e Sodium 40 e Sodium 40 le Sodium MG MG 40 MG Clopidogrel Clopidogrel No Clopidogre Bisulfate Bisulfate l 75 MG 75 MG Bisulfate 75 MG Trulicity Trulicity No Trulicity 1.5 1.5 1.5 MG/0.5ML MG/0.5ML MG/0.5ML Cilostazol Cilostazol No 1{table QD Cilostazol 100 MG 100 MG t_30_mi 100 MG nutes_b efore_o r_2_hou rs_afte r_break fast_an d_dinne r} ZyrTEC ZyrTEC No 1{table QD ZyrTEC Allergy 10 Allergy 10 t} Allergy 10 MG MG MG Plavix 75 Plavix 75 No Plavix 75 MG MG MG Lantus Lantus No Lantus SoloStar SoloStar SoloStar 100 UNIT/ML 100 UNIT/ML 100 UNIT/ML Rosuvastati Rosuvastati No Rosuvastat n Calcium n Calcium in Calcium 10 MG 10 MG 10 MG hydroCHLORO hydroCHLORO No 1{table QD hydroCHLOR thiazide 25 thiazide 25 t_in_th Othiazide MG MG e_morni 25 MG ng} HumaLOG HumaLOG No HumaLOG KwikPen 100 KwikPen 100 KwikPen UNIT/ML UNIT/ML 100 UNIT/ML Aspir-81 81 Aspir-81 81 No 1{table QD Aspir-81 MG MG t} 81 MG Losartan Losartan No Losartan Potassium Potassium Potassium 100 MG 100 MG 100 MG Plavix 75 Plavix 75 No 1{table QD Plavix 75 MG MG t} MG Cozaar 100 Cozaar 100 No 1{table Cozaar 100 MG MG t} MG Crestor 10 Crestor 10 No Crestor 10 MG MG MG Bystolic 20 Bystolic 20 No 1{table QD Bystolic MG MG t} 20 MG Synjardy XR Synjardy XR No 1{table QD Synjardy 25-1000 MG 25-1000 MG t_with_ XR 25-[address]} hydroCHLORO hydroCHLORO No hydroCHLOR thiazide 25 thiazide 25 Othiazide MG MG 25 MG Pantoprazol Pantoprazol No Pantoprazo e Sodium 40 e Sodium 40 le Sodium MG MG 40 MG Clopidogrel Clopidogrel No Clopidogre Bisulfate Bisulfate l 75 MG 75 MG Bisulfate 75 MG Trulicity Trulicity No Trulicity 1.5 1.5 1.5 MG/0.5ML MG/0.5ML MG/0.5ML Cilostazol Cilostazol No 1{table QD Cilostazol 100 MG 100 MG t_30_mi 100 MG nutes_b efore_o r_2_hou rs_afte r_break fast_an d_dinne r} ZyrTEC ZyrTEC No 1{table QD ZyrTEC Allergy 10 Allergy 10 t} Allergy 10 MG MG MG Clopidogrel Clopidogrel No Clopidogre Bisulfate Bisulfate l 75 MG 75 MG Bisulfate 75 MG ZyrTEC ZyrTEC No 1{table QD ZyrTEC Allergy 10 Allergy 10 t} Allergy 10 MG MG MG Immunizations Ordered Filled Date Status Comments Source Immunization Name Immunization Name Pneumococcal 2022-12-17 Completed [facility] PCV20 [facility] (Prevnar 20) Branch Pneumococcal 20 2022-12-17 Completed [facility] Conjugate, PCV20 00:00:00 [facility] (Prevnar 20) Branch Pneumococcal 20 2022-12-17 Completed [facility] Conjugate, PCV20 00:00:00 [facility] (Prevnar 20) Branch Pneumococcal 20 2022-12-17 Completed [facility] Conjugate, PCV20 00:00:00 [facility] (Prevnar 20) Branch Pneumococcal 20 2022-12-17 Completed [facility] Conjugate, PCV20 00:00:00 [facility] (Prevnar 20) Branch Pneumococcal 20 2022-12-17 Completed [facility] Conjugate, PCV20 00:00:00 [facility] (Prevnar 20) Branch Pneumococcal 20 2022-12-17 Completed [facility] Conjugate, PCV20 00:00:00 [place] [facility] (Prevnar 20) Branch Pneumococcal 20 2022-12-17 Completed [facility] Conjugate, PCV20 00:00:00 [place] [facility] (Prevnar 20) Branch Pneumococcal 20 2022-12-17 Completed [facility] Conjugate, PCV20 00:00:00 [place] [facility] (Prevnar 20) Branch Pneumococcal 20 2022-12-17 Completed [facility] Conjugate, PCV20 00:00:00 [place] [facility] (Prevnar 20) Branch Pneumococcal 20 2022-12-17 Completed [facility] Conjugate, PCV20 00:00:00 [facility] (Prevnar 20) Branch Pneumococcal 20 2022-12-17 Completed [facility] Conjugate, PCV20 00:00:00 [place] [facility] (Prevnar 20) Branch Pneumococcal 20 2022-12-17 Completed [facility] Conjugate, PCV20 00:00:00 [facility] (Prevnar 20) Branch Pneumococcal 20 2022-12-17 Completed [facility] Conjugate, PCV20 00:00:00 [facility] (Prevnar 20) Branch Pneumococcal 20 2022-12-17 Completed [facility] Conjugate, PCV20 00:00:00 [facility] (Prevnar 20) Branch Pneumococcal 20 2022-12-17 Completed [facility] Conjugate, PCV20 00:00:00 [facility] (Prevnar 20) Branch Pneumococcal 20 2022-12-17 Completed [facility] Conjugate, PCV20 00:00:00 [place] [facility] (Prevnar 20) Branch Pneumococcal 20 2022-12-17 Completed [facility] Conjugate, PCV20 00:00:00 [place] [facility] (Prevnar 20) Branch Pneumococcal 20 2022-12-17 Completed [facility] Conjugate, PCV20 00:00:00 [facility] (Prevnar 20) Branch Pneumococcal 20 2022-12-17 Completed [facility] Conjugate, PCV20 00:00:00 [place] [facility] (Prevnar 20) Branch Pneumococcal 20 2022-12-17 Completed [facility] Conjugate, PCV20 00:00:00 [facility] (Prevnar 20) Branch Pneumococcal 20 2022-12-17 Completed [facility] Conjugate, PCV20 00:00:00 [place] [facility] (Prevnar 20) Branch Pneumococcal 20 2022-12-17 Completed [facility] Conjugate, PCV20 00:00:00 [facility] (Prevnar 20) Branch Pneumococcal 20 2022-12-17 Completed [facility] Conjugate, PCV20 00:00:00 [facility] (Prevnar 20) Branch Pneumococcal 20 2022-12-17 Completed [facility] Conjugate, PCV20 00:00:00 [facility] (Prevnar 20) Branch Influenza Virus 2022-05-31 Completed [facility] Vaccine Quad IM, 00:00:00 [facility] Preserv and ABX Branch Free 6 MO-64 YRS Influenza Virus 2022-05-31 Completed [facility] Vaccine Quad IM, 00:00:00 [place] [facility] Preserv and ABX Branch Free 6 MO-64 YRS Influenza Virus 2022-05-31 Completed [facility] Vaccine Quad IM, 00:00:00 [place] [facility] Preserv and ABX Branch Free 6 MO-64 YRS Influenza Virus 2022-05-31 Completed [facility] Vaccine Quad IM, 00:00:00 [facility] Preserv and ABX Branch Free 6 MO-64 YRS Influenza Virus 2022-05-31 Completed [facility] Vaccine Quad IM, 00:00:00 [place] [facility] Preserv and ABX Branch Free 6 MO-64 YRS Influenza Virus 2022-05-31 Completed [facility] Vaccine Quad IM, 00:00:00 [place] [facility] Preserv and ABX Branch Free 6 MO-64 YRS Influenza Virus 2022-05-31 Completed [facility] Vaccine Quad IM, 00:00:00 [place] [facility] Preserv and ABX Branch Free 6 MO-64 YRS (FLUCELVAX) Influenza Virus 2022-05-31 Completed [facility] Vaccine Quad IM, 00:00:00 [place] [facility] Preserv and ABX Branch Free 6 MO-64 YRS (FLUCELVAX) Influenza Virus 2022-05-31 Completed [facility] Vaccine Quad IM, 00:00:00 [place] [facility] Preserv and ABX Branch Free 6 MO-64 YRS (FLUCELVAX) Influenza Virus 2022-05-31 Completed [facility] Vaccine Quad IM, 00:00:00 [place] [facility] Preserv and ABX Branch Free 6 MO-64 YRS Influenza Virus 2022-05-31 Completed [facility] Vaccine Quad IM, 00:00:00 [place] [facility] Preserv and ABX Branch Free 6 MO-64 YRS Influenza Virus 2022-05-31 Completed [facility] Vaccine Quad IM, 00:00:00 [place] [facility] Preserv and ABX Branch Free 6 MO-64 YRS Influenza Virus 2022-05-31 Completed [facility] Vaccine Quad IM, 00:00:00 [place] [facility] Preserv and ABX Branch Free 6 MO-64 YRS Influenza Virus 2022-05-31 Completed [facility] Vaccine Quad IM, 00:00:00 [place] [facility] Preserv and ABX Branch Free 6 MO-64 YRS Influenza Virus 2022-05-31 Completed [facility] Vaccine Quad IM, 00:00:00 [place] [facility] Preserv and ABX Branch Free 6 MO-64 YRS Influenza Virus 2022-05-31 Completed [facility] Vaccine Quad IM, 00:00:00 [place] [facility] Preserv and ABX Branch Free 6 MO-64 YRS Influenza Virus 2022-05-31 Completed [facility] Vaccine Quad IM, 00:00:00 [place] [facility] Preserv and ABX Branch Free 6 MO-64 YRS Influenza Virus 2022-05-31 Completed [facility] Vaccine Quad IM, 00:00:00 [place] [facility] Preserv and ABX Branch Free 6 MO-64 YRS Influenza Virus 2022-05-31 Completed [facility] Vaccine Quad IM, 00:00:00 [place] [facility] Preserv and ABX Branch Free 6 MO-64 YRS Influenza Virus 2022-05-31 Completed [facility] Vaccine Quad IM, 00:00:00 [place] [facility] Preserv and ABX Branch Free 6 MO-64 YRS Influenza Virus 2022-05-31 Completed [facility] Vaccine Quad IM, 00:00:00 [place] [facility] Preserv and ABX Branch Free 6 MO-64 YRS Influenza Virus 2022-05-31 Completed [facility] Vaccine Quad IM, 00:00:00 [place] [facility] Preserv and ABX Branch Free 6 MO-64 YRS Influenza Virus 2022-05-31 Completed [facility] Vaccine Quad IM, 00:00:00 [place] [facility] Preserv and ABX Branch Free 6 MO-64 YRS Influenza Virus 2022-05-31 Completed [facility] Vaccine Quad IM, 00:00:00 [place] [facility] Preserv and ABX Branch Free 6 MO-64 YRS Influenza Virus 2022-05-31 Completed [facility] Vaccine Quad IM, 00:00:00 [place] [facility] Preserv and ABX Branch Free 6 MO-64 YRS Influenza Virus 2022-05-31 Completed [facility] Vaccine Quad IM, 00:00:00 [place] [facility] Preserv and ABX Branch Free 6 MO-64 YRS Influenza Virus 2022-05-31 Completed [facility] Vaccine Quad IM, 00:00:00 [place] [facility] Preserv and ABX Branch Free 6 MO-64 YRS Influenza Virus 2022-05-31 Completed [facility] Vaccine Quad IM, 00:00:00 [place] [facility] Preserv and ABX Branch Free 6 MO-64 YRS Influenza Virus 2022-05-31 Completed [facility] Vaccine Quad IM, 00:00:00 [place] [facility] Preserv and ABX Branch Free 6 MO-64 YRS Influenza Virus 2022-05-31 Completed [facility] Vaccine Quad IM, 00:00:00 [place] [facility] Preserv and ABX Branch Free 6 MO-64 YRS Influenza Virus 2022-05-31 Completed [facility] Vaccine Quad IM, 00:00:00 [place] [facility] Preserv and ABX Branch Free 6 MO-64 YRS Influenza Virus 2022-05-31 Completed [facility] Vaccine Quad IM, 00:00:00 [place] [facility] Preserv and ABX Branch Free 6 MO-64 YRS Influenza Virus 2022-05-31 Completed [facility] Vaccine Quad IM, 00:00:00 [place] [facility] Preserv and ABX Branch Free 6 MO-64 YRS Influenza Virus 2022-05-31 Completed [facility] Vaccine Quad IM, 00:00:00 [place] [facility] Preserv and ABX Branch Free 6 MO-64 YRS Influenza Virus 2022-05-31 Completed [facility] Vaccine Quad IM, 00:00:00 [place] [facility] Preserv and ABX Branch Free 6 MO-64 YRS Influenza Virus 2022-05-31 Completed [facility] Vaccine Quad IM, 00:00:00 [place] [facility] Preserv and ABX Branch Free 6 MO-64 YRS Influenza Virus 2022-05-31 Completed [facility] Vaccine Quad IM, 00:00:00 [place] [facility] Preserv and ABX Branch Free 6 MO-64 YRS Influenza Virus 2022-05-31 Completed [facility] Vaccine Quad IM, 00:00:00 [place] [facility] Preserv and ABX Branch Free 6 MO-64 YRS Influenza Virus 2022-05-31 Completed [facility] Vaccine Quad IM, 00:00:00 [place] [facility] Preserv and ABX Branch Free 6 MO-64 YRS Influenza Virus 2022-05-31 Completed [facility] Vaccine Quad IM, 00:00:00 [place] [facility] Preserv and ABX Branch Free 6 MO-64 YRS SARS-COV-2 COVID-19 2022-05-03 Completed [facility] ANA-SUCROSE 00:00:00 [facility] VACCINE [facility] Y[facility]+, Branch BIVALENT 0.3ML, IM, (PFIZER GURROLA TOP) SARS-COV-2 COVID-19 2022-05-03 Completed [facility] of ANA-SUCROSE 00:00:00 [facility] VACCINE 12 YRS+, Branch BIVALENT 0.3ML, IM, (PFIZER GURROLA TOP) SARS-COV-2 COVID-19 2022-05-03 Completed [facility] of ANA-SUCROSE 00:00:00 [place] [facility] VACCINE 12 YRS+, Branch BIVALENT 0.3ML, IM, (PFIZER GURROLA TOP) SARS-COV-2 COVID-19 2022-05-03 Completed [facility] of ANA-SUCROSE 00:00:00 [place] [facility] VACCINE 12 YRS+, Branch BIVALENT 0.3ML, IM, (PFIZER GURROLA TOP) SARS-COV-2 COVID-19 2022-05-03 Completed [facility] of ANA-SUCROSE 00:00:00 [place] [facility]ACCINE 12 YRS+, Branch BIVALENT 0.3ML, IM, (PFIZER GURROLA TOP) SARS-COV-2 COVID-19 2022-05-03 Completed [facility] of ANA-SUCROSE 00:00:00 [place] [facility] VACCINE 12 YRS+, Branch BIVALENT 0.3ML, IM, (PFIZER GURROLA TOP) SARS-COV-2 COVID-19 2022-05-03 Completed [facility] of ANA-SUCROSE 00:00:00 [place] [facility] VACCINE 12 YRS+, Branch BIVALENT 0.3ML, IM, (PFIZER GURROLA TOP) SARS-COV-2 COVID-19 2022-05-03 Completed [facility] of ANA-SUCROSE 00:00:00 [place] [facility] VACCINE 12 YRS+, Branch BIVALENT 0.3ML, IM, (PFIZER GURROLA TOP) SARS-COV-2 COVID-19 2022-05-03 Completed [facility] of ANA-SUCROSE 00:00:00 [place] [facility] VACCINE 12 YRS+, Branch BIVALENT 0.3ML, IM, (PFIZER GURROLA TOP BOOSTER) SARS-COV-2 COVID-19 2022-05-03 Completed [facility] of ANA-SUCROSE 00:00:00 [place] [facility] VACCINE 12 YRS+, Branch BIVALENT 0.3ML, IM, (PFIZER GURROLA TOP BOOSTER) SARS-COV-2 COVID-19 2022-05-03 Completed [facility] of ANA-SUCROSE 00:00:00 [place] [facility] VACCINE 12 YRS+, Branch BIVALENT 0.3ML, IM, (PFIZER GURROLA TOP BOOSTER) SARS-COV-2 COVID-19 2022-05-03 Completed [facility] of ANA-SUCROSE 00:00:00 [place] [facility] VACCINE 12 YRS+, Branch BIVALENT 0.3ML, IM, (PFIZER GURROLA TOP BOOSTER) SARS-COV-2 COVID-19 2022-05-03 Completed [facility] of ANA-SUCROSE 00:00:00 [place] [facility] VACCINE 12 YRS+, Branch BIVALENT 0.3ML, IM, (PFIZER GURROLA TOP BOOSTER) SARS-COV-2 COVID-19 2022-05-03 Completed [facility] of ANA-SUCROSE 00:00:00 [place] [facility] VACCINE 12 YRS+, Branch BIVALENT 0.3ML, IM, (PFIZER GURROLA TOP BOOSTER) SARS-COV-2 COVID-19 2022-05-03 Completed [facility] of ANA-SUCROSE 00:00:00 [place] [facility] VACCINE 12 YRS+, Branch BIVALENT 0.3ML, IM, (PFIZER GURROLA TOP BOOSTER) SARS-COV-2 COVID-19 2022-05-03 Completed [facility] of ANA-SUCROSE 00:00:00 [place] [facility] VACCINE 12 YRS+, Branch BIVALENT 0.3ML, IM, (PFIZER GURROLA TOP BOOSTER) SARS-COV-2 COVID-19 2022-05-03 Completed [facility] of ANA-SUCROSE 00:00:00 [place] [facility] VACCINE 12 YRS+, Branch BIVALENT 0.3ML, IM, (PFIZER GURROLA TOP BOOSTER) SARS-COV-2 COVID-19 2022-05-03 Completed [facility] of ANA-SUCROSE 00:00:00 [place] [facility] VACCINE 12 YRS+, Branch BIVALENT 0.3ML, IM, (PFIZER GURROLA TOP BOOSTER) SARS-COV-2 COVID-19 2022-05-03 Completed [facility] of ANA-SUCROSE 00:00:00 [place] [facility] VACCINE 12 YRS+, Branch BIVALENT 0.3ML, IM, (PFIZER GURROLA TOP BOOSTER) SARS-COV-2 COVID-19 2022-05-03 Completed [facility] of ANA-SUCROSE 00:00:00 [place] [facility] VACCINE 12 YRS+, Branch BIVALENT 0.3ML, IM, (PFIZER GURROLA TOP BOOSTER) SARS-COV-2 COVID-19 2022-05-03 Completed [facility] of ANA-SUCROSE 00:00:00 [place] [facility] VACCINE 12 YRS+, Branch BIVALENT 0.3ML, IM, (PFIZER UGRROLA TOP BOOSTER) SARS-COV-2 COVID-19 2022-05-03 Completed [facility] of ANA-SUCROSE 00:00:00 [place] [facility] VACCINE 12 YRS+, Branch BIVALENT 0.3ML, IM, (PFIZER GURROLA TOP BOOSTER) SARS-COV-2 COVID-19 2022-05-03 Completed [facility] of ANA-SUCROSE 00:00:00 [place] [facility] VACCINE 12 YRS+, Branch BIVALENT 0.3ML, IM, (PFIZER GURROLA TOP BOOSTER) SARS-COV-2 COVID-19 2022-05-03 Completed [facility] of ANA-SUCROSE 00:00:00 [place] [facility] VACCINE 12 YRS+, Branch BIVALENT 0.3ML, IM, (PFIZER GURROLA TOP BOOSTER) SARS-COV-2 COVID-19 2022-05-03 Completed [facility] of ANA-SUCROSE 00:00:00 [place] [facility]ACCINE 12 YRS+, Branch BIVALENT 0.3ML, IM, (PFIZER GURROLA TOP) SARS-COV-2 COVID-19 2022-05-03 Completed [facility] of ANA-SUCROSE 00:00:00 [place] [facility] VACCINE 12 YRS+, Branch BIVALENT 0.3ML, IM, (PFIZER GURROLA TOP) SARS-COV-2 COVID-19 2022-05-03 Completed [facility] of ANA-SUCROSE 00:00:00 [place] [facility]ACCINE 12 YRS+, Branch BIVALENT 0.3ML, IM, (PFIZER GURROLA TOP) SARS-COV-2 COVID-19 2022-05-03 Completed [facility] of ANA-SUCROSE 00:00:00 [place] [facility]ACCINE 12 YRS+, Branch BIVALENT 0.3ML, IM, (PFIZER GURROLA TOP) SARS-COV-2 COVID-19 2022-05-03 Completed [facility] of ANA-SUCROSE 00:00:00 [place] [facility]INE 12 YRS+, Branch BIVALENT 0.3ML, IM, (PFIZER GURROLA TOP) SARS-COV-2 COVID-19 2022-05-03 Completed [facility] of ANA-SUCROSE 00:00:00 [place] [facility] VACCINE 12 YRS+, Branch BIVALENT 0.3ML, IM, (PFIZER GURROLA TOP) SARS-COV-2 COVID-19 2022-05-03 Completed [facility] of ANA-SUCROSE 00:00:00 [place] [facility] VACCINE 12 YRS+, Branch BIVALENT 0.3ML, IM, (PFIZER GURROLA TOP) SARS-COV-2 COVID-19 2022-05-03 Completed [facility] of ANA-SUCROSE 00:00:00 [place] [facility] VACCINE 12 YRS+, Branch BIVALENT 0.3ML, IM, (PFIZER GURROLA TOP) SARS-COV-2 COVID-19 2022-05-03 Completed [facility] of ANA-SUCROSE 00:00:00 [place] [facility]ACCINE 12 YRS+, Branch BIVALENT 0.3ML, IM, (PFIZER GURROLA TOP) SARS-COV-2 COVID-19 2022-05-03 Completed [facility] of ANA-SUCROSE 00:00:00 [place] [facility]ACCINE 12 YRS+, Branch BIVALENT 0.3ML, IM, (PFIZER GURROLA TOP) SARS-COV-2 COVID-19 2022-05-03 Completed [facility] of ANA-SUCROSE 00:00:00 [place] [facility]INE 12 YRS+, Branch BIVALENT 0.3ML, IM, (PFIZER GURROLA TOP) SARS-COV-2 COVID-19 2022-05-03 Completed [facility] of ANA-SUCROSE 00:00:00 [place] [facility] VACCINE 12 YRS+, Branch BIVALENT 0.3ML, IM, (PFIZER GURROLA TOP) SARS-COV-2 COVID-19 2022-05-03 Completed [facility] of ANA-SUCROSE 00:00:00 [place] [facility]ACCINE 12 YRS+, Branch BIVALENT 0.3ML, IM, (PFIZER GURROLA TOP) SARS-COV-2 COVID-19 2022-05-03 Completed [facility] of ANA-SUCROSE 00:00:00 [place] [facility] VACCINE 12 YRS+, Branch BIVALENT 0.3ML, IM, (PFIZER GURROLA TOP) SARS-COV-2 COVID-19 2022-05-03 Completed [facility] of ANA-SUCROSE 00:00:00 [place] [facility]INE 12 YRS+, Branch BIVALENT 0.3ML, IM, (PFIZER GURROLA TOP) SARS-COV-2 COVID-19 2022-05-03 Completed [facility] of ANA-SUCROSE 00:00:00 [place] [facility] VACCINE 12 YRS+, Branch BIVALENT 0.3ML, IM, (PFIZER GURROLA TOP) SARS-COV-2 COVID-19 2022-05-03 Completed [facility] of ANA-SUCROSE 00:00:00 [place] [facility] VACCINE 12 YRS+, Branch BIVALENT 0.3ML, IM, (PFIZER GURROLA TOP) Pneumococcal 2021-12-04 Completed [facility] Polysaccharide, 00:00:00 [place] [facility] PPSV23 (PNEUMOVAX) Branch Pneumococcal 2021-12-04 Completed [facility] Polysaccharide, 00:00:00 [place] [facility] PPSV23 (PNEUMOVAX) Branch Pneumococcal 2021-12-04 Completed [facility] Polysaccharide, 00:00:00 [place] [facility] PPSV23 (PNEUMOVAX) Branch Pneumococcal 2021-12-04 Completed [facility] Polysaccharide, 00:00:00 [place] [facility] PPSV23 (PNEUMOVAX) Branch Pneumococcal 2021-12-04 Completed [facility] Polysaccharide, 00:00:00 [place] [facility] PPSV23 (PNEUMOVAX) Branch Pneumococcal 2021-12-04 Completed [facility] Polysaccharide, 00:00:00 [place] [facility] PPSV23 (PNEUMOVAX) Branch Pneumococcal 2021-12-04 Completed [facility] Polysaccharide, 00:00:00 [place] [facility] PPSV23 (PNEUMOVAX) Branch Pneumococcal 2021-12-04 Completed [facility] Polysaccharide, 00:00:00 [place] [facility] PPSV23 (PNEUMOVAX) Branch Pneumococcal 2021-12-04 Completed [facility] Polysaccharide, 00:00:00 [place] [facility] PPSV23 (PNEUMOVAX) Branch Pneumococcal 2021-12-04 Completed [facility] Polysaccharide, 00:00:00 [place] [facility] PPSV23 (PNEUMOVAX) Branch Pneumococcal 2021-12-04 Completed [facility] Polysaccharide, 00:00:00 [place] [facility] PPSV23 (PNEUMOVAX) Branch Pneumococcal 2021-12-04 Completed [facility] f Polysaccharide, 00:00:00 [place] [facility] PPSV23 (PNEUMOVAX) Branch Pneumococcal 2021-12-04 Completed [facility] f Polysaccharide, 00:00:00 [place] [facility] PPSV23 (PNEUMOVAX) Branch Pneumococcal 2021-12-04 Completed [facility] f Polysaccharide, 00:00:00 [place] [facility] PPSV23 (PNEUMOVAX) Branch Pneumococcal 2021-12-04 Completed [facility] Polysaccharide, 00:00:00 [place] [facility] PPSV23 (PNEUMOVAX) Branch Pneumococcal 2021-12-04 Completed [facility] Polysaccharide, 00:00:00 [place] [facility] PPSV23 (PNEUMOVAX) Branch Pneumococcal 2021-12-04 Completed [facility] Polysaccharide, 00:00:00 [place] [facility] PPSV23 (PNEUMOVAX) Branch Pneumococcal 2021-12-04 Completed [facility] Polysaccharide, 00:00:00 [place] [facility] PPSV23 (PNEUMOVAX) Branch Pneumococcal 2021-12-04 Completed [facility] Polysaccharide, 00:00:00 [place] [facility] PPSV23 (PNEUMOVAX) Branch Pneumococcal 2021-12-04 Completed [facility] Polysaccharide, 00:00:00 [place] [facility] PPSV23 (PNEUMOVAX) Branch Pneumococcal 2021-12-04 Completed [facility] Polysaccharide, 00:00:00 [place] [facility] PPSV23 (PNEUMOVAX) Branch Pneumococcal 2021-12-04 Completed [facility] Polysaccharide, 00:00:00 [place] [facility] PPSV23 (PNEUMOVAX) Branch Pneumococcal 2021-12-04 Completed [facility] Polysaccharide, 00:00:00 [place] [facility] PPSV23 (PNEUMOVAX) Branch Pneumococcal 2021-12-04 Completed [facility] Polysaccharide, 00:00:00 [place] [facility] PPSV23 (PNEUMOVAX) Branch Pneumococcal 2021-12-04 Completed [facility] Polysaccharide, 00:00:00 [place] [facility] PPSV23 (PNEUMOVAX) Branch SARS-COV-2 COVID-19 2021-11-30 Completed [facility] rs[facility] of MODERNA 0.25ML 00:00:00 [place] [facility] BOOSTER VACCINE [facility] SARS-COV-2 COVID-19 2021-11-30 Completed [facility] rs[facility] of MODERNA 0.25ML 00:00:00 [place] [facility] BOOSTER VACCINE [facility] SARS-COV-2 COVID-19 2021-11-30 Completed [facility] rs[facility] of MODERNA 0.25ML 00:00:00 [place] [facility] BOOSTER VACCINE [facility] SARS-COV-2 COVID-19 2021-11-30 Completed [facility] rs[facility] of MODERNA 0.25ML 00:00:00 [place] [facility] BOOSTER VACCINE [facility] SARS-COV-2 COVID-19 2021-11-30 Completed [facility] rs[facility] of MODERNA 0.25ML 00:00:00 [place] [facility] BOOSTER VACCINE [facility] SARS-COV-2 COVID-19 2021-11-30 Completed [facility] rs[facility] of MODERNA 0.25ML 00:00:00 [place] [facility] BOOSTER VACCINE [facility] SARS-COV-2 COVID-19 2021-11-30 Completed [facility] rs[facility] of MODERNA 0.25ML 00:00:00 [place] [facility] BOOSTER VACCINE [facility] SARS-COV-2 COVID-19 2021-11-30 Completed [facility] rs[facility] of MODERNA 0.25ML 00:00:00 [place] [facility] BOOSTER VACCINE [facility] SARS-COV-2 COVID-19 2021-11-30 Completed [facility] 0.25ML 00:00:00 [place] [facility] SARS-COV-2 COVID-19 2021-11-30 Completed [facility] 0.25ML 00:00:00 [place] [facility] SARS-COV-2 COVID-19 2021-11-30 Completed [facility] 0.25ML 00:00:00 [place] [facility]ACC[facility] SARS-COV-2 COVID-19 2021-11-30 Completed [facility] 0.25ML 00:00:00 [place] [facility]ACC[facility] SARS-COV-2 COVID-19 2021-11-30 Completed [facility] 0.25ML 00:00:00 [place] [facility]ACC[facility] SARS-COV-2 COVID-19 2021-11-30 Completed [facility] 0.25ML 00:00:00 [place] [facility]ACC[facility] SARS-COV-2 COVID-19 2021-11-30 Completed [facility] 0.25ML 00:00:00 [place] [facility]ACC[facility] SARS-COV-2 COVID-19 2021-11-30 Completed [facility] 0.25ML 00:00:00 [place] [facility]ACC[facility] SARS-COV-2 COVID-19 2021-11-30 Completed [facility] 0.25ML 00:00:00 [place] [facility]ACC[facility] SARS-COV-2 COVID-19 2021-11-30 Completed [facility] 0.25ML 00:00:00 [place] [facility]ACC[facility] SARS-COV-2 COVID-19 2021-11-30 Completed [facility] 0.25ML 00:00:00 [place] [facility]ACC[facility] SARS-COV-2 COVID-19 2021-11-30 Completed [facility] 0.25ML 00:00:00 [place] [facility]ACC[facility] SARS-COV-2 COVID-19 2021-11-30 Completed [facility] 0.25ML 00:00:00 [place] [facility]ACC[facility] SARS-COV-2 COVID-19 2021-11-30 Completed [facility] 0.25ML 00:00:00 [place] [facility]ACC[facility] SARS-COV-2 COVID-19 2021-11-30 Completed [facility] 0.25ML 00:00:00 [place] [facility]ACC[facility] SARS-COV-2 COVID-19 2021-11-30 Completed [facility] 0.25ML 00:00:00 [place] [facility]ACCINE [facility] SARS-COV-2 COVID-19 2021-11-30 Completed [facility] 0.25ML 00:00:00 [place] [facility]ACCINE [facility] SARS-COV-2 COVID-19 2021-11-30 Completed [facility] 0.25ML 00:00:00 [place] [facility]ACC[facility] SARS-COV-2 COVID-19 2021-11-30 Completed [facility] 0.25ML 00:00:00 [place] [facility]ACC[facility] SARS-COV-2 COVID-19 2021-11-30 Completed [facility] 0.25ML 00:00:00 [place] [facility]ACCINE [facility] SARS-COV-2 COVID-19 2021-11-30 Completed [facility] 0.25ML 00:00:00 [place] [facility]ACC[facility] SARS-COV-2 COVID-19 2021-11-30 Completed [facility] 0.25ML 00:00:00 [place] [facility]ACCINE [facility] SARS-COV-2 COVID-19 2021-11-30 Completed [facility] 0.25ML 00:00:00 [place] [facility]ACC[facility] SARS-COV-2 COVID-19 2021-11-30 Completed [facility] 0.25ML 00:00:00 [place] [facility]ACC[facility] SARS-COV-2 COVID-19 2021-11-30 Completed [facility] 0.25ML 00:00:00 [place] [facility]ACC[facility] SARS-COV-2 COVID-19 2021-11-30 Completed [facility] 0.25ML 00:00:00 [place] [facility] VACC[facility] SARS-COV-2 COVID-19 2021-11-30 Completed [facility] 0.25ML 00:00:00 [place] [facility]ACC[facility] SARS-COV-2 COVID-19 2021-11-30 Completed [facility] 0.25ML 00:00:00 [place] [facility]ACC[facility] SARS-COV-2 COVID-19 2021-11-30 Completed [facility] MOD[facility] 0.25ML 00:00:00 [place] [facility]ACC[facility] SARS-COV-2 COVID-19 2021-11-30 Completed [facility] 0.25ML 00:00:00 [place] [facility]ACC[facility] SARS-COV-2 COVID-19 2021-11-30 Completed [facility] 0.25ML 00:00:00 [place] [facility]ACC[facility] SARS-COV-2 COVID-19 2021-11-30 Completed [facility] 0.25ML 00:00:00 [place] [facility] SARS-COV-2 COVID-19 2021-11-30 Completed [facility] 0.25ML 00:00:00 [place] [facility] Moderna COVID-19 Moderna COVID-19 2021-06-12 Completed [facility] (Low Dose Vaccine (Low Dose 10:07:[address] [facility] Booster) Booster) [facility] Moderna COVID-19 Moderna COVID-19 2021-06-12 Completed [facility] (Low Dose Vaccine (Low Dose 10:07:[address] [facility] Booster) Booster) [facility] Moderna COVID-19 Moderna COVID-19 2021-06-12 Completed [facility] (Low Dose Vaccine (Low Dose 10:07:[address] [facility] Booster) [facility] 2021-06-12 Com[facility] (Low Dose Vaccine (Low Dose 10:07:[address] [facility] Booster) Booster) [facility] Moderna COVID-19 Moderna COVID-19 2021-06-12 Completed [facility] (Low Dose Vaccine (Low Dose 10:07:[address] [facility] Booster) [facility] 2021-06-12 Com[facility] (Low Dose Vaccine (Low Dose 10:07:[address] [facility] Booster) Booster) [facility] COVID19 Moderna COVID-19 2021-06-12 Completed [facility] Vaccine (Low Dose Vaccine (Low Dose 10:07:[address] [facility] Booster) Booster) [facility] COVID19 Moderna COVID-19 2021-06-12 Completed [facility] Vaccine (Low Dose Vaccine (Low Dose 10:07:[address] [facility] Booster) Booster) [facility] SARS-COV-2 COVID-19 2021-06-12 Completed [facility] 0.25ML 00:00:00 [place] [facility] SARS-COV-2 COVID-19 2021-06-12 Completed [facility] 0.25ML 00:00:00 [place] [facility] SARS-COV-2 COVID-19 2021-06-12 Completed [facility] 0.25ML 00:00:00 [place] [facility]ACC[facility] SARS-COV-2 COVID-19 2021-06-12 Completed [facility] 0.25ML 00:00:00 [place] [facility] SARS-COV-2 COVID-19 2021-06-12 Completed [facility] 0.25ML 00:00:00 [place] [facility] SARS-COV-2 COVID-19 2021-06-12 Completed [facility] 0.25ML 00:00:00 [place] [facility] SARS-COV-2 COVID-19 2021-06-12 Completed [facility] 0.25ML 00:00:00 [place] [facility] SARS-COV-2 COVID-19 2021-06-12 Completed [facility] 0.25ML 00:00:00 [place] [facility] SARS-COV-2 COVID-19 2021-06-12 Completed [facility] 0.25ML 00:00:00 [place] [facility]ACC[facility] SARS-COV-2 COVID-19 2021-06-12 Completed [facility] 0.25ML 00:00:00 [place] [facility] SARS-COV-2 COVID-19 2021-06-12 Completed [facility] 0.25ML 00:00:00 [place] [facility] SARS-COV-2 COVID-19 2021-06-12 Completed [facility] 0.25ML 00:00:00 [place] [facility]ACC[facility] SARS-COV-2 COVID-19 2021-06-12 Completed [facility] 0.25ML 00:00:00 [place] [facility]ACC[facility] SARS-COV-2 COVID-19 2021-06-12 Completed [facility] 0.25ML 00:00:00 [place] [facility]ACC[facility] SARS-COV-2 COVID-19 2021-06-12 Completed [facility] 0.25ML 00:00:00 [place] [facility]ACC[facility] SARS-COV-2 COVID-19 2021-06-12 Completed [facility] 0.25ML 00:00:00 [place] [facility]ACC[facility] SARS-COV-2 COVID-19 2021-06-12 Completed [facility] 0.25ML 00:00:00 [place] [facility]ACC[facility] SARS-COV-2 COVID-19 2021-06-12 Completed [facility] 0.25ML 00:00:00 [place] [facility]ACC[facility] SARS-COV-2 COVID-19 2021-06-12 Completed [facility] 0.25ML 00:00:00 [place] [facility]ACC[facility] SARS-COV-2 COVID-19 2021-06-12 Completed [facility] 0.25ML 00:00:00 [place] [facility]ACC[facility] SARS-COV-2 COVID-19 2021-06-12 Completed [facility] MODER[facility] 0.25ML 00:00:00 [place] [facility]ACCINE [facility] SARS-COV-2 COVID-19 2021-06-12 Completed [facility] 0.25ML 00:00:00 [place] [facility]ACC[facility] SARS-COV-2 COVID-19 2021-06-12 Completed [facility] 0.25ML 00:00:00 [place] [facility]ACCINE [facility] SARS-COV-2 COVID-19 2021-06-12 Completed [facility] 0.25ML 00:00:00 [place] [facility]ACC[facility] SARS-COV-2 COVID-19 2021-06-12 Completed [facility] 0.25ML 00:00:00 [place] [facility]ACCINE [facility] SARS-COV-2 COVID-19 2021-06-12 Completed [facility] 0.25ML 00:00:00 [place] [facility]ACC[facility] SARS-COV-2 COVID-19 2021-06-12 Completed [facility] 0.25ML 00:00:00 [place] [facility]ACC[facility] SARS-COV-2 COVID-19 2021-06-12 Completed [facility] 0.25ML 00:00:00 [place] [facility]ACCINE [facility] SARS-COV-2 COVID-19 2021-06-12 Completed [facility] 0.25ML 00:00:00 [place] [facility]ACC[facility] SARS-COV-2 COVID-19 2021-06-12 Completed [facility] 0.25ML 00:00:00 [place] [facility]ACCINE [facility] SARS-COV-2 COVID-19 2021-06-12 Completed [facility] 0.25ML 00:00:00 [place] [facility] VACCINE [facility] SARS-COV-2 COVID-19 2021-06-12 Completed [facility] 0.25ML 00:00:00 [place] [facility] VACCINE [facility] SARS-COV-2 COVID-19 2021-06-12 Completed [facility] 0.25ML 00:00:00 [place] [facility] VACCINE [facility] SARS-COV-2 COVID-19 2021-06-12 Completed [facility] 0.25ML 00:00:00 [place] [facility] VACCINE [facility] SARS-COV-2 COVID-19 2021-06-12 Completed [facility] 0.25ML 00:00:00 [place] [facility] VACCINE [facility] SARS-COV-2 COVID-19 2021-06-12 Completed [facility]ER[facility] 0.25ML 00:00:00 [place] [facility] VACCINE [facility] SARS-COV-2 COVID-19 2021-06-12 Completed [facility] MODER[facility] 0.25ML 00:00:00 [place] [facility] VACCINE [facility] SARS-COV-2 COVID-19 2021-06-12 Completed [facility] MODER[facility] 0.25ML 00:00:00 [place] [facility] VACCINE [facility] SARS-COV-2 COVID-19 2021-06-12 Completed [facility] 0.25ML 00:00:00 [place] [facility] VACCINE [facility] SARS-COV-2 COVID-19 2021-06-12 Completed [facility] MODER[facility] 0.25ML 00:00:00 [place] [facility]ACC[facility] SARS-COV-2 COVID-19 2021-06-12 Completed [facility] 0.25ML 00:00:00 [place] [facility] Afluria Afluria 2021-05-15 Completed [facility] - 11:57:00 [facility] Afluria Afluria 2021-05-15 Completed [facility] - 11:57:00 [facility] Afluria Afluria 2021-05-15 Completed [facility] - 11:57:00 [facility] Afluria Afluria 2021-05-15 Completed [facility] - 11:57:00 [facility] Afluria Afluria 2021-05-15 Completed [facility] - 11:57:00 [facility] Afluria Afluria 2021-05-15 Completed [facility] - 11:57:00 [facility] Afluria Afluria 2021-05-15 Completed [facility] - 11:57:00 [facility] Afluria Afluria 2021-05-15 Completed [facility] - 11:57:00 [facility] Afluria Afluria 2021-05-15 Completed [facility] - 11:57:00 [facility] Afluria Afluria 2021-05-15 Completed [facility] - 11:57:00 [facility] Afluria Afluria 2021-05-15 Completed [facility] - 11:57:00 [facility] Afluria Afluria 2021-05-15 Completed [facility] - 11[facility]57:00 [facility] Moderna COVID-19 Moderna COVID-19 2020-09-30 Completed [facility] - Vaccine Vaccine 11:11:00 [facility] Moderna COVID-19 Moderna COVID-19 2020-09-30 Completed [facility] Vaccine Vaccine 11:11:00 [facility] Moderna COVID-19 Moderna COVID-19 2020-09-30 Completed [facility] - Vaccine Vaccine 11:11:00 [facility] Moderna COVID-19 Moderna COVID-19 2020-09-30 Completed [facility] - Vaccine Vaccine 11:11:00 [facility] Moderna COVID-19 Moderna COVID-19 2020-09-30 Completed [facility] Vaccine Vaccine 11:11:00 [facility] Moderna COVID-19 Moderna COVID-19 2020-09-30 Completed [facility] Vaccine Vaccine 11:11:00 [facility] Moderna COVID-19 Moderna COVID-19 2020-09-30 Completed [facility] - Vaccine Vaccine 11:11:00 [facility] Moderna COVID-19 Moderna COVID-19 2020-09-30 Completed [facility] - Vaccine Vaccine 11:11:00 [facility] Moderna COVID-19 Moderna COVID-19 2020-09-30 Completed [facility] Vaccine Vaccine 11:11:00 [facility] Moderna COVID-19 Moderna COVID-19 2020-09-30 Completed [facility] Vaccine Vaccine 11:11:00 [facility] SARS-COV-2 COVID-19 2020-09-23 Completed [facility] 12+ YRS 00:00:00 [facility] VACCINE Branch SARS-COV-2 COVID-19 2020-09-23 Completed [facility] 12+ YRS 00:00:00 [place] [facility] SARS-COV-2 COVID-19 2020-09-23 Completed [facility]ERNA 12+ YRS 00:00:00 [place] [facility] SARS-COV-2 COVID-19 2020-09-23 Completed [facility] 12+ YRS 00:00:00 [place] [facility] SARS-COV-2 COVID-19 2020-09-23 Completed [facility]ERNA 12+ YRS 00:00:00 [place] [facility] SARS-COV-2 COVID-19 2020-09-23 Completed [facility]ERNA 12+ YRS 00:00:00 [place] [facility] SARS-COV-2 COVID-19 2020-09-23 Completed [facility]ERNA 12+ YRS 00:00:00 [place] [facility] SARS-COV-2 COVID-19 2020-09-23 Completed [facility]ERNA 12+ YRS 00:00:00 [place] [facility] SARS-COV-2 COVID-19 2020-09-23 Completed [facility]ERNA 12+ YRS 00:00:00 [place] [facility] SARS-COV-2 COVID-19 2020-09-23 Completed [facility]ERNA 12+ YRS 00:00:00 [place] [facility] SARS-COV-2 COVID-19 2020-09-23 Completed [facility]ERNA 12+ YRS 00:00:00 [place] [facility] SARS-COV-2 COVID-19 2020-09-23 Completed [facility]ERNA 12+ YRS 00:00:00 [place] [facility] SARS-COV-2 COVID-19 2020-09-23 Completed [facility]ERNA 12+ YRS 00:00:00 [place] [facility] SARS-COV-2 COVID-19 2020-09-23 Completed [facility]ERNA 12+ YRS 00:00:00 [place] [facility] SARS-COV-2 COVID-19 2020-09-23 Completed [facility]ERNA 12+ YRS 00:00:00 [place] [facility] SARS-COV-2 COVID-19 2020-09-23 Completed [facility] MODERNA 12+ YRS 00:00:00 [place] [facility] SARS-COV-2 COVID-19 2020-09-23 Completed [facility]ERNA 12+ YRS 00:00:00 [place] [facility] SARS-COV-2 COVID-19 2020-09-23 Completed [facility] MODERNA 12+ YRS 00:00:00 [place] [facility]ACC[facility] SARS-COV-2 COVID-19 2020-09-23 Completed [facility] MODERNA 12+ YRS 00:00:00 [place] [facility]ACC[facility] SARS-COV-2 COVID-19 2020-09-23 Completed [facility]ERNA 12+ YRS 00:00:00 [place] [facility] VACC[facility] SARS-COV-2 COVID-19 2020-09-23 Completed [facility] MODERNA 12+ YRS 00:00:00 [place] [facility]ACC[facility] SARS-COV-2 COVID-19 2020-09-23 Completed [facility] MODERNA 12+ YRS 00:00:00 [place] [facility]ACC[facility] SARS-COV-2 COVID-19 2020-09-23 Completed [facility]ERNA 12+ YRS 00:00:00 [place] [facility]ACC[facility] SARS-COV-2 COVID-19 2020-09-23 Completed [facility] MODERNA 12+ YRS 00:00:00 [place] [facility]ACC[facility] SARS-COV-2 COVID-19 2020-09-23 Completed [facility] MODERNA 12+ YRS 00:00:00 [place] [facility]ACC[facility] SARS-COV-2 COVID-19 2020-09-23 Completed [facility]ERNA 12+ YRS 00:00:00 [place] [facility] SARS-COV-2 COVID-19 2020-09-23 Completed [facility] MODERNA 12+ YRS 00:00:00 [place] [facility]ACC[facility] SARS-COV-2 COVID-19 2020-09-23 Completed [facility]ERNA 12+ YRS 00:00:00 [place] [facility] SARS-COV-2 COVID-19 2020-09-23 Completed [facility]ERNA 12+ YRS 00:00:00 [place] [facility] SARS-COV-2 COVID-19 2020-09-23 Completed [facility]ERNA 12+ YRS 00:00:00 [place] [facility]ACC[facility] SARS-COV-2 COVID-19 2020-09-23 Completed [facility]ERNA 12+ YRS 00:00:00 [place] [facility]ACC[facility] SARS-COV-2 COVID-19 2020-09-23 Completed [facility]ERNA 12+ YRS 00:00:00 [place] [facility]ACCINE [facility] SARS-COV-2 COVID-19 2020-09-23 Completed [facility] MODERNA 12+ YRS 00:00:00 [place] [facility]ACCINE [facility] SARS-COV-2 COVID-19 2020-09-23 Completed [facility]ERNA 12+ YRS 00:00:00 [place] [facility] VACCINE [facility] SARS-COV-2 COVID-19 2020-09-23 Completed [facility] MODERNA 12+ YRS 00:00:00 [place] [facility] VACCINE [facility] SARS-COV-2 COVID-19 2020-09-23 Completed [facility]ERNA 12+ YRS 00:00:00 [place] [facility] VACCINE [facility] SARS-COV-2 COVID-19 2020-09-23 Completed [facility] MODERNA 12+ YRS 00:00:00 [place] [facility]ACC[facility] SARS-COV-2 COVID-19 2020-09-23 Completed [facility]ERNA 12+ YRS 00:00:00 [place] [facility] VACCINE [facility] SARS-COV-2 COVID-19 2020-09-23 Completed [facility]ERNA 12+ YRS 00:00:00 [place] [facility] VACCINE [facility] SARS-COV-2 COVID-19 2020-09-23 Completed [facility]ERNA 12+ YRS 00:00:00 [place] [facility] VACCINE [facility] SARS-COV-2 COVID-19 2020-09-23 Completed [facility]ERNA 12+ YRS 00:00:00 [place] [facility] Moderna COVID-19 Moderna COVID-19 2020-08-27 Completed [facility] Vaccine 11:10:00 [facility] Moderna COVID-19 Moderna COVID-19 2020-08-27 Completed [facility] Vaccine Vaccine 11:10:00 [facility] Moderna COVID-19 Moderna COVID-19 2020-08-27 Completed [facility] - Vaccine Vaccine 11:10:00 [facility] Moderna COVID-19 Moderna COVID-19 2020-08-27 Completed [facility] - Vaccine Vaccine 11:10:00 [facility] Moderna COVID-19 Moderna COVID-19 2020-08-27 Completed [facility] - Vaccine Vaccine 11:10:00 [facility] Moderna COVID-19 Moderna COVID-19 2020-08-27 Completed [facility] Vaccine Vaccine 11:10:00 [facility] Moderna COVID-19 Moderna COVID-19 2020-08-27 Completed [facility] - Vaccine Vaccine 11:10:00 [facility] Moderna COVID-19 Moderna COVID-19 2020-08-27 Completed [facility] - Vaccine Vaccine 11:10:00 [facility] Moderna COVID-19 Moderna COVID-19 2020-08-27 Completed [facility] - Vaccine Vaccine 11:10:00 [facility] Moderna COVID-19 Moderna COVID-19 2020-08-27 Completed [facility] Vaccine Vaccine 11:10:00 [facility] SARS-COV-2 COVID-19 2020-08-27 Completed [facility] 12+ YRS 00:00:00 [place] [facility] VACCINE [facility] SARS-COV-2 COVID-19 2020-08-27 Completed [facility]ERNA 12+ YRS 00:00:00 [place] [facility] VACCINE [facility] SARS-COV-2 COVID-19 2020-08-27 Completed [facility] 12+ YRS 00:00:00 [place] [facility] VACCINE [facility] SARS-COV-2 COVID-19 2020-08-27 Completed [facility]NA 12+ YRS 00:00:00 [facility] ical VACCINE Branch SARS-COV-2 COVID-19 2020-08-27 Completed [facility] MODERNA 12+ YRS 00:00:00 [place] [facility] VACCINE [facility] SARS-COV-2 COVID-19 2020-08-27 Completed [facility] MODERNA 12+ YRS 00:00:00 [place] [facility] VACCINE [facility] SARS-COV-2 COVID-19 2020-08-27 Completed [facility]ERNA 12+ YRS 00:00:00 [place] [facility] VACCINE [facility] SARS-COV-2 COVID-19 2020-08-27 Completed [facility]ERNA 12+ YRS 00:00:00 [place] [facility] VACCINE [facility] SARS-COV-2 COVID-19 2020-08-27 Completed [facility]ERNA 12+ YRS 00:00:00 [place] [facility] VACCINE [facility] SARS-COV-2 COVID-19 2020-08-27 Completed [facility]ERNA 12+ YRS 00:00:00 [place] [facility] VACCINE [facility] SARS-COV-2 COVID-19 2020-08-27 Completed [facility]ERNA 12+ YRS 00:00:00 [place] [facility] VACCINE [facility] SARS-COV-2 COVID-19 2020-08-27 Completed [facility]ERNA 12+ YRS 00:00:00 [place] [facility] VACCINE [facility] SARS-COV-2 COVID-19 2020-08-27 Completed [facility]ERNA 12+ YRS 00:00:00 [place] [facility] VACCINE [facility] SARS-COV-2 COVID-19 2020-08-27 Completed [facility]ERNA 12+ YRS 00:00:00 [place] [facility] VACCINE [facility] SARS-COV-2 COVID-19 2020-08-27 Completed [facility]ERNA 12+ YRS 00:00:00 [place] [facility] VACCINE [facility] SARS-COV-2 COVID-19 2020-08-27 Completed [facility]ERNA 12+ YRS 00:00:00 [place] [facility] VACCINE [facility] SARS-COV-2 COVID-19 2020-08-27 Completed [facility]ERNA 12+ YRS 00:00:00 [place] [facility] VACCINE [facility] SARS-COV-2 COVID-19 2020-08-27 Completed [facility]ERNA 12+ YRS 00:00:00 [place] [facility] VACCINE [facility] SARS-COV-2 COVID-19 2020-08-27 Completed [facility]ERNA 12+ YRS 00:00:00 [place] [facility] VACCINE [facility] SARS-COV-2 COVID-19 2020-08-27 Completed [facility]ERNA 12+ YRS 00:00:00 [place] [facility] VACCINE [facility] SARS-COV-2 COVID-19 2020-08-27 Completed [facility]ERNA 12+ YRS 00:00:00 [place] [facility] VACCINE [facility] SARS-COV-2 COVID-19 2020-08-27 Completed [facility]ERNA 12+ YRS 00:00:00 [place] [facility] VACCINE [facility] SARS-COV-2 COVID-19 2020-08-27 Completed [facility]ERNA 12+ YRS 00:00:00 [place] [facility] VACCINE [facility] SARS-COV-2 COVID-19 2020-08-27 Completed [facility] MODERNA 12+ YRS 00:00:00 [place] [facility] VACCINE [facility] SARS-COV-2 COVID-19 2020-08-27 Completed [facility] MODERNA 12+ YRS 00:00:00 [place] [facility] VACCINE [facility] SARS-COV-2 COVID-19 2020-08-27 Completed [facility]ERNA 12+ YRS 00:00:00 [place] [facility] VACCINE [facility] SARS-COV-2 COVID-19 2020-08-27 Completed [facility]ERNA 12+ YRS 00:00:00 [place] [facility] VACCINE [facility] SARS-COV-2 COVID-19 2020-08-27 Completed [facility]ERNA 12+ YRS 00:00:00 [place] [facility] VACCINE [facility] SARS-COV-2 COVID-19 2020-08-27 Completed [facility]ERNA 12+ YRS 00:00:00 [place] [facility] VACCINE [facility] SARS-COV-2 COVID-19 2020-08-27 Completed [facility]ERNA 12+ YRS 00:00:00 [place] [facility] VACCINE [facility] SARS-COV-2 COVID-19 2020-08-27 Completed [facility] MODERNA 12+ YRS 00:00:00 [place] [facility] VACCINE [facility] SARS-COV-2 COVID-19 2020-08-27 Completed [facility] MODERNA 12+ YRS 00:00:00 [place] [facility] VACCINE [facility] SARS-COV-2 COVID-19 2020-08-27 Completed [facility]ERNA 12+ YRS 00:00:00 [place] [facility] VACCINE [facility] SARS-COV-2 COVID-19 2020-08-27 Completed [facility] MODERNA 12+ YRS 00:00:00 [place] [facility] VACCINE [facility] SARS-COV-2 COVID-19 2020-08-27 Completed [facility] MODERNA 12+ YRS 00:00:00 [place] [facility] VACCINE [facility] SARS-COV-2 COVID-19 2020-08-27 Completed [facility] MODERNA 12+ YRS 00:00:00 [place] [facility] VACCINE [facility] SARS-COV-2 COVID-19 2020-08-27 Completed [facility]ERNA 12+ YRS 00:00:00 [place] [facility] VACCINE [facility] SARS-COV-2 COVID-19 2020-08-27 Completed [facility] MODERNA 12+ YRS 00:00:00 [place] [facility] VACCINE [facility] SARS-COV-2 COVID-19 2020-08-27 Completed [facility] MODERNA 12+ YRS 00:00:00 [place] [facility] SARS-COV-2 COVID-19 2020-08-27 Completed [facility] of MODERNA 12+ YRS 00:00:00 [place] [facility] ical VACCINE Branch SARS-COV-2 COVID-19 2020-08-27 Completed [facility] rs[facility] of MODERNA 12+ YRS 00:00:00 [facility] ical VACCINE Branch Zoster(Zostavax)( 2020-06-24 Completed [facility]ive [facility] of ingles) 00:00:00 [facility] Zoster(Zostavax)( 2020-06-24 Completed [facility] of ingles) 00:00:00 [facility] Zoster(Zostavax)( 2020-06-24 Completed [facility] of ingles) 00:00:00 [facility] Zoster(Zostavax)( 2020-06-24 Completed [facility] of ingles) 00:00:00 [facility] Zoster(Zostavax)( 2020-06-24 Completed [facility] of ingles) 00:00:00 [facility] Zoster(Zostavax)( 2020-06-24 Completed [facility] of ingles) 00:00:00 [facility] Zoster(Zostavax)( 2020-06-24 Completed Unive rsity of ingles) 00:00:00 [facility] Zoster(Zostavax)( 2020-06-24 Completed [facility]ive rsity of ingles) 00:00:00 [facility] Zoster(Zostavax)( 2020-06-24 Completed [facility]ive rsity of ingles) 00:00:00 [facility] Zoster(Zostavax)( 2020-06-24 Completed [facility]ive rsity of ingles) 00:00:00 [facility] Zoster(Zostavax)( 2020-06-24 Completed [facility]ive rsity of ingles) 00:00:00 [facility] Zoster(Zostavax)( 2020-06-24 Completed Unive rsity of ingles) 00:00:00 [facility] Zoster(Zostavax)( 2020-06-24 Completed Unive rsity of ingles) 00:00:00 [facility] Zoster(Zostavax)( 2020-06-24 Completed Unive rsity of ingles) 00:00:00 [facility] Zoster(Zostavax)( 2020-06-24 Completed [facility]ive rsity of ingles) 00:00:00 [facility] Zoster(Zostavax)( 2020-06-24 Completed [facility]ive rsity of ingles) 00:00:00 [facility] Zoster(Zostavax)( 2020-06-24 Completed [facility]ive rsity of ingles) 00:00:00 [facility] Zoster(Zostavax)( 2020-06-24 Completed [facility]ive rsity of ingles) 00:00:00 [facility] Zoster(Zostavax)( 2020-06-24 Completed [facility]ive rsity of ingles) 00:00:00 [facility] Zoster(Zostavax)( 2020-06-24 Completed Unive rsity of ingles) 00:00:00 [facility] Zoster(Zostavax)( 2020-06-24 Completed Unive rsity of ingles) 00:00:00 [facility] Zoster(Zostavax)( 2020-06-24 Completed [facility]ive rsity of ingles) 00:00:00 [facility] Zoster(Zostavax)( 2020-06-24 Completed [facility]ive rs[facility] of ingles) 00:00:00 [facility] Zoster(Zostavax)( 2020-06-24 Completed [facility]ive rsity of ingles) 00:00:00 [facility] Zoster(Zostavax)( 2020-06-24 Completed [facility]ive rsity of ingles) 00:00:00 [facility] Zoster(Zostavax)( 2020-06-24 Completed [facility]ive rsity of ingles) 00:00:00 [facility] Zoster(Zostavax)( 2020-06-24 Completed [facility]ive rs[facility] of ingles) 00:00:00 [facility] Zoster(Zostavax)( 2020-06-24 Completed [facility] rsity of ingles) 00:00:00 [facility] Zoster(Zostavax)( 2020-06-24 Completed [facility] rs[facility] of ingles) 00:00:00 [facility] Zoster(Zostavax)( 2020-06-24 Completed [facility]ive rsity of ingles) 00:00:00 [facility] Zoster(Zostavax)( 2020-06-24 Completed [facility]ive rsity of ingles) 00:00:00 [facility] Zoster(Zostavax)( 2020-06-24 Completed [facility]ive rsity of ingles) 00:00:00 [facility] Zoster(Zostavax)( 2020-06-24 Completed [facility]ive rsity of ingles) 00:00:00 [facility] Zoster(Zostavax)( 2020-06-24 Completed [facility]ive rsity of ingles) 00:00:00 [facility] Zoster(Zostavax)( 2020-06-24 Completed [facility]ive rsity of ingles) 00:00:00 [facility] Zoster(Zostavax)( 2020-06-24 Completed [facility]ive rsity of ingles) 00:00:00 [facility] Zoster(Zostavax)( 2020-06-24 Completed Unive rsity of ingles) 00:00:00 [facility] Zoster(Zostavax)( 2020-06-24 Completed Unive rsity of ingles) 00:00:00 [facility] Zoster(Zostavax)( 2020-06-24 Completed Unive rsity of ingles) 00:00:00 [facility] Shingrix Shingrix 2020-06-16 Completed [facility]:10[facility]00 [facility] Shingrix Shingrix 2020-06-16 Completed [facility] 11:10:00 [facility] Shingrix Shingrix 2020-06-16 Completed [facility] 11:10:00 [facility] Shingrix Shingrix 2020-06-16 Completed [facility] 11:10:00 [facility] Shingrix Shingrix 2020-06-16 Completed [facility] 11:10:00 [facility] Shingrix Shingrix 2020-06-16 Completed [facility] 11:10:00 [facility] Shingrix Shingrix 2020-06-16 Completed [facility] 11:10:00 [facility] Shingrix Shingrix 2020-06-16 Completed [facility] 11:10:00 [facility] Shingrix Shingrix 2020-06-16 Completed [facility] 11:10:00 [facility] Shingrix Shingrix 2020-06-16 Completed [facility] 11:10:00 [facility] Pneumovax (PPSV23) Pneumovax (PPSV23) 2020-05-09 Completed [facility] 16:44:00 [facility] Pneumovax (PPSV23) Pneumovax (PPSV23) 2020-05-09 Completed [facility] 16:44:00 [facility] Pneumovax (PPSV23) Pneumovax (PPSV23) 2020-05-09 Completed [facility] 16:44:00 [facility] Pneumovax (PPSV23) Pneumovax (PPSV23) 2020-05-09 Completed [facility] 16:44:00 [facility] Pneumovax (PPSV23) Pneumovax (PPSV23) 2020-05-09 Completed [facility] 16:44:00 [facility] Pneumovax (PPSV23) Pneumovax (PPSV23) 2020-05-09 Completed [facility] 16:44:00 [facility] Pneumovax (PPSV23) Pneumovax (PPSV23) 2020-05-09 Completed [facility] 16:44:00 [facility] Pneumovax (PPSV23) Pneumovax (PPSV23) 2020-05-09 Completed [facility] 16:44:00 [facility] Pneumovax (PPSV23) Pneumovax (PPSV23) 2020-05-09 Completed [facility] 16:44:00 [facility] Pneumovax (PPSV23) Pneumovax (PPSV23) 2020-05-09 Completed [facility] 16:44:00 [facility] Pneumovax (PPSV23) Pneumovax (PPSV23) 2020-05-09 Completed [facility] 16:44:00 [facility] Pneumovax (PPSV23) Pneumovax (PPSV23) 2020-05-09 Completed [facility] 16:44:00 [facility] Afluria Afluria 2019-05-10 Completed [facility] 12:58:00 [facility] Afluria Afluria 2019-05-10 Completed [facility] 12:58:00 [facility] Afluria Afluria 2019-05-10 Completed [facility] 12:58:00 [facility] Afluria Afluria 2019-05-10 Completed [facility] 12:58:00 [facility] Afluria Afluria 2019-05-10 Completed [facility] 12:58:00 [facility] Afluria Afluria 2019-05-10 Completed [facility] 12:58:00 [facility] Afluria Afluria 2019-05-10 Completed [facility] 12:58:00 [facility] Afluria Afluria 2019-05-10 Completed [facility] 12:58:00 [facility] Afluria Afluria 2019-05-10 Completed [facility] 12:58:00 [facility] Afluria Afluria 2019-05-10 Completed [facility] 12:58:00 [facility] Afluria Afluria 2019-05-10 Completed [facility] 12:58:00 [facility] Afluria Afluria 2019-05-10 Completed [facility] 12:58:00 [facility] Afluria Afluria 2019-05-10 Completed [facility] 00:00:00 [facility] Kenalog Kenalog 2019-02-05 Completed [facility] - (Triamcinolone) (Triamcinolone) 10:53:00 [facility] Kenalog Kenalog 2019-02-05 Completed [facility] (Triamcinolone) (Triamcinolone) 10:53:00 [facility] Kenalog Kenalog 2019-02-05 Completed [facility] (Triamcinolone) (Triamcinolone) 10:53:00 [facility] Kenalog Kenalog 2019-02-05 Completed [facility] (Triamcinolone) (Triamcinolone) 10:53:00 [facility] Kenalog Kenalog 2019-02-05 Completed [facility] (Triamcinolone) (Triamcinolone) 10:53:00 [facility] TDAP 2016-09-16 Completed University of 00:00:00 [facility] TDAP 2016-09-16 Completed University of 00:00:00 [facility] TDAP 2016-09-16 Completed University of 00:00:00 [facility] TDAP 2016-09-16 Completed University of 00:00:00 [facility] TDAP 2016-09-16 Completed University of 00:00:00 [facility] TDAP 2016-09-16 Completed University of 00:00:00 [facility] TDAP 2016-09-16 Completed University of 00:00:00 [facility] TDAP 2016-09-16 Completed University of 00:00:00 [facility] TDAP 2016-09-16 Completed University of 00:00:00 [facility] TDAP 2016-09-16 Completed University of 00:00:00 [facility] TDAP 2016-09-16 Completed University of 00:00:00 [facility] TDAP 2016-09-16 Completed University of 00:00:00 [facility] TDAP 2016-09-16 Completed University of 00:00:00 [facility] TDAP 2016-09-16 Completed University of 00:00:00 [facility] TDAP 2016-09-16 Completed University of 00:00:00 [facility] TDAP 2016-09-16 Completed University of 00:00:00 [facility] TDAP 2016-09-16 Completed University of 00:00:00 [facility] TDAP 2016-09-16 Completed University of 00:00:00 [facility] TDAP 2016-09-16 Completed University of 00:00:00 [facility] TDAP 2016-09-16 Completed University of 00:00:00 [facility] TDAP 2016-09-16 Completed University of 00:00:00 [facility] TDAP 2016-09-16 Completed University of 00:00:00 [facility] TDAP 2016-09-16 Completed University of 00:00:00 [facility] TDAP 2016-09-16 Completed University of 00:00:00 [facility] TDAP 2016-09-16 Completed University of 00:00:00 [facility] TDAP 2016-09-16 Completed University of 00:00:00 [facility] TDAP 2016-09-16 Completed University of 00:00:00 [facility] TDAP 2016-09-16 Completed University of 00:00:00 [facility] TDAP 2016-09-16 Completed University of 00:00:00 [facility] TDAP 2016-09-16 Completed University of 00:00:00 [facility] TDAP 2016-09-16 Completed University of 00:00:00 [facility] TDAP 2016-09-16 Completed University of 00:00:00 [facility] TDAP 2016-09-16 Completed University of 00:00:00 [facility] TDAP 2016-09-16 Completed University of 00:00:00 [facility] TDAP 2016-09-16 Completed University of 00:00:00 [facility] TDAP 2016-09-16 Completed University of 00:00:00 [facility] TDAP 2016-09-16 Completed University of 00:00:00 [facility] TDAP 2016-09-16 Completed University of 00:00:00 [facility] TDAP 2016-09-16 Completed [facility] of 00:00:00 [facility] Boostrix (Tdap) Boostrix (Tdap) 2016-09-15 Completed Comm on - 11:09:00 [facility] Boostrix (Tdap) Boostrix (Tdap) 2016-09-15 Completed [facility] - 11:09:00 [facility] Boostrix (Tdap) Boostrix (Tdap) 2016-09-15 Completed [facility] - 11:09:00 [facility] Boostrix (Tdap) Boostrix (Tdap) 2016-09-15 Completed [facility] - 11:09:00 [facility] Boostrix (Tdap) Boostrix (Tdap) 2016-09-15 Completed [facility] - 11:09:00 [facility] Boostrix (Tdap) Boostrix (Tdap) 2016-09-15 Completed [facility] - 11:09:00 [facility] Boostrix (Tdap) Boostrix (Tdap) 2016-09-15 Completed [facility] - :09:00 [facility] Boostrix (Tdap) Boostrix (Tdap) 2016-09-15 Completed [facility] - 11:09:00 [facility] Boostrix (Tdap) Boostrix (Tdap) 2016-09-15 Completed [facility] - 11:09:00 [facility] Boostrix (Tdap) Boostrix (Tdap) 2016-09-15 Completed [facility] - 11:09:00 [facility] SARS-COV-2 COVID-19 Unknown Completed Unive rsity of MODERNA 12+ YRS [place] [facility] VACCINE Branch SARS-COV-2 COVID-19 Unknown Completed Unive rsity of MODERNA 12+ YRS [place] [facility] VACCINE Branch SARS-COV-2 COVID-19 Unknown Completed Unive rsity of MODERNA 0.25ML [place] [facility] araceli BOOSTER VACCINE Branch SARS-COV-2 COVID-19 Unknown Completed Unive rsity of MODERNA 0.25ML [place] [facility] araceli BOOSTER VACCINE Branch SARS-COV-2 COVID-19 Unknown Completed Unive rsity of ANA-SUCROSE [place] [facility] l VACCINE 12 YRS+, Branch BIVALENT 0.3ML, IM, (PFIZER GURROLA TOP) Influenza Virus Unknown Completed Universit y of Vaccine Quad IM, [place] Me dical Preserv and ABX Branch Free 6 MO-64 YRS (FLUCELVAX) TDAP Unknown Completed [facility] Zoster(Zostavax)(Sh Unknown Completed Unive rsity of ingles) [facility] Pneumococcal Unknown Completed [place] o f Polysaccharide, [place] [facility] PPSV23 (PNEUMOVAX) Branch Pneumococcal 20 [facility], PCV20 [facility] dical (Prevnar 20) Branch Vital Signs Vital Name Observation Time Observation Value Comments Source HEIGHT 2020-05-29 05:42:00 180.3 cm WEIGHT 2020-05-29 05:42:00 115.713 kg HEIGHT 2020-05-28 13:26:00 180.3 cm WEIGHT 2020-05-28 13:26:00 117.028 kg Systolic blood 2023-04-08 18:26:00 133 mm[Hg] [facility] Diastolic blood 2023-04-08 18:26:00 68 mm[Hg] [facility] Heart rate 2023-04-08 18:26:00 76 /min Universi ty [facility] Body height 2023-04-08 18:26:00 180.3 cm Universi ty [facility] Body weight 2023-04-08 18:26:00 119.75 kg [facility]i [facility] BMI 2023-04-08 18:26:00 36.82 kg/m2 [facility] Oxygen saturation in 2023-04-08 18:26:00 97 /min University of Arterial blood by [facility] Pulse oximetry Branch Systolic blood 2022-12-17 15:54:00 130 mm[Hg] Univer [facility] of [facility] Diastolic blood 2022-12-17 15:54:00 62 mm[Hg] [facility] Heart rate 2022-12-17 15:53:00 75 /min Universi ty [facility] Body height 2022-12-17 15:53:00 180.3 cm [facility]i [facility] Body weight 2022-12-17 15:53:00 118.797 kg [facility]i [facility] BMI 2022-12-17 15:53:00 36.53 kg/m2 [facility] Oxygen saturation in 2022-12-17 15:53:00 96 /min University of Arterial blood by [facility] Pulse oximetry Branch Height 2022-08-30 00:00:00 71 [in_i] [facility] BMI (Body Mass 2022-08-30 00:00:00 38.4 kg/m2 Мария [facility] Index) Sports Medicine Body Weight 2022-08-30 00:00:00 275 [lb_av] М[facility] Systolic blood 2022-08-11 15:10:00 137 mm[Hg] Univer sity of pressure [facility] Diastolic blood 2022-08-11 15:10:00 62 mm[Hg] Unive [facility]ity of [facility] Heart rate 2022-08-11 15:10:00 74 /min Universi ty [facility] Body temperature 2022-08-11 15:10:00 [facility] 2022-08-11 15:10:00 180.3 cm Universi ty [facility] Body weight 2022-08-11 15:10:00 119.115 kg Universi ty [facility] BMI 2022-08-11 15:10:00 36.63 kg[facility] in 2022-08-11 15:10:00 97 /min [facility] blood by [facility] Pulse oximetry [facility] 2022-06-17 00:00:00 71 [in_i] М[facility]ия [facility] BMI (Body Mass 2022-06-17 00:00:00 38.4 kg/m2 М[facility] Index) Sports Medicine Body Weight 2022-06-17 00:00:00 275 [lb_av] [facility] height 2022-06-11 08:40:00 71.00 [in_i] [facility] weight 2022-06-11 08:40:00 259.8 [lb_av] [facility] temperature 2022-06-11 08:40:00 97.4 [degF] [facility] bmi 2022-06-11 08:40:00 36.23 kg/m2 [facility] oximetry 2022-06-11 08:40:00 95 % [facility] respiratory rate 2022-06-11 08:40:00 16 /min Comm on [facility] blood pressure 2022-06-11 08:40:00 134 mm[Hg] [facility] - systolic [facility] blood pressure 2022-06-11 08:40:00 58 mm[Hg] [facility] - diastolic [facility] Height 2022-05-26 00:00:00 71 [in_i] М[facility]ия [facility] BMI (Body Mass 2022-05-26 00:00:00 38.4 kg/m2 [place] [facility]) Sports Medicine Body Weight 2022-05-26 00:00:00 275 [lb_av] Мария [facility] Height 2022-04-21 00:00:00 71 [in_i] [facility] BMI (Body Mass 2022-04-21 00:00:00 38.4 kg/m2 [place] [facility] Index) Sports Medicine Body Weight 2022-04-21 00:00:00 275 [lb_av] Мария [facility] height 2022-03-08 08:40:00 71.00 [in_i] [facility] weight 2022-03-08 08:40:00 255.2 [lb_av] Common [facility] temperature 2022-03-08 08:40:00 96.4 [degF] [facility] bmi 2022-03-08 08:40:00 35.59 kg/m2 [facility] oximetry 2022-03-08 08:40:00 95 % [facility] respiratory rate 2022-03-08 08:40:00 18 /min Comm on [facility] blood pressure 2022-03-08 08:40:00 130 mm[Hg] [facility] systolic [facility] blood pressure 2022-03-08 08:40:00 62 mm[Hg] [facility] - diastolic [facility] height 2021-11-17 08:00:00 71.00 [in_i] Common [facility] weight 2021-11-17 08:00:00 255 [lb_av] Common [facility] temperature 2021-11-17 08:00:00 96.5 [degF] Common [facility] bmi 2021-11-17 08:00:00 35.56 kg/m2 Common S [facility] oximetry 2021-11-17 08:00:00 96 % Common [facility] respiratory rate 2021-11-17 08:00:00 16 /min Comm on [facility] blood pressure 2021-11-17 08:00:00 134 mm[Hg] Common [facility] systolic [facility] blood pressure 2021-11-17 08:00:00 62 mm[Hg] Common [facility] - diastolic [facility] height 2021-11-17 08:00:00 71.00 [in_i] Common [facility] weight 2021-11-17 08:00:00 255 [lb_av] Common [facility] temperature 2021-11-17 08:00:00 96.5 [degF] [facility] bmi 2021-11-17 08:00:00 35.56 kg/m2 [facility] oximetry 2021-11-17 08:00:00 96 % [facility] respiratory rate 2021-11-17 08:00:00 16 /min Comm on [facility] blood pressure 2021-11-17 08:00:00 134 mm[Hg] Common [facility] - systolic [facility] blood pressure 2021-11-17 08:00:00 62 mm[Hg] Common [facility] - diastolic [facility] height 2021-06-02 10:00:00 71.00 [in_i] Common [facility] weight 2021-06-02 10:00:00 244.6 [lb_av] [facility] temperature 2021-06-02 10:00:00 97.0 [degF] [facility] bmi 2021-06-02 10:00:00 34.11 kg/m2 Common S [facility] oximetry 2021-06-02 10:00:00 96 % Common [facility] respiratory rate 2021-06-02 10:00:00 18 /min Comm on [facility] blood pressure 2021-06-02 10:00:00 122 mm[Hg] [facility] systolic [facility] blood pressure 2021-06-02 10:00:00 60 mm[Hg] Common [facility] - diastolic [facility] height 2021-05-15 08:40:00 71.00 [in_i] [facility] weight 2021-05-15 08:40:00 256.4 [lb_av] Common [facility] temperature 2021-05-15 08:40:00 97.2 [degF] Common S [facility] bmi 2021-05-15 08:40:00 35.76 kg/m2 [facility] S [facility] oximetry 2021-05-15 08:40:00 95 % Common [facility] respiratory rate 2021-05-15 08:40:00 16 /min Comm on [facility] blood pressure 2021-05-15 08:40:00 120 mm[Hg] Common [facility] - systolic [facility] blood pressure 2021-05-15 08:40:00 58 mm[Hg] Common [facility] - diastolic [facility] HEIGHT 2020-05-29 05:42:00 180.3 cm WEIGHT 2020-05-29 [...] 117.028 kg Procedures Procedure Date / Time Performing Clinician Source Performed EXTERNAL PROVIDER 2023-04-25 05:01:00 Doctor Unassigned, Monisha [facility] Name Medical Branch PATIENT QUESTIONNAIRE 2023-04-01 05:01:00 Doctor Unassigned, No [facility] [id number] 2023-03-21 00:00:00 [facility]U [facility] [id number] 2023-03-21 00:00:00 [facility] [id number] 2023-03-21 00:00:00 [facility] [id number] 2023-03-21 00:00:00 [facility] [id number] 2023-03-21 00:00:00 [facility] [id number] 2023-03-21 00:00:00 [facility] [id number] 2023-03-21 00:00:00 [facility] [id number] 2023-03-21 00:00:00 [facility] [id number] 2023-03-21 00:00:00 CHEZU [facility] US ABDOMINAL AORTA 2022-12-27 16:28:15 Tboi Castellano [facility] SCREEN AAA Medical Branch ASSIGNMENT OF BENEFITS 2022-12-27 15:39:26 Doctor Unassigned, Monisha [facility] CBC WITH DIFF 2022-12-17 17:18:00 Tobi Castellano o [facility] Medical Branch PNEUMOCOCCAL 20 2022-12-17 16:18:59 Tobi Castellano o [place] CONJUGATE (PREVNAR 20) Medical B ranch VACCINE POCT URINALYSIS 2022-12-17 00:00:00 Tobi Castellano o [facility] PATIENT QUESTIONNAIRE 2022-10-20 06:01:00 Doctor Unassigned, No [facility] Medical [place] EXTERNAL PROVIDER 2022-09-16 06:01:00 Doctor Unassigned, No [facility] RECORDS [facility] AUTHORIZATION TO RELEASE 2022-08-11 06:01:00 Doctor Unassigned, No [facility] PHI TO [facility] Medical Branch XR, shoulder, 2 or more 2022-06-17 00:00:00 Sherry jarrett [facility] FLU VACC ([id number]), 6 2022-05-31 15:13:15 Doctor Unassigned, N o [facility] MO-64 YRS, .5ML, IM, Name Medical Bra [facility] QUAD (FLUCELVAX) MRI, shoulder, w/o 2022-05-26 00:00:00 Мария Or thopedic contrast Sports Medicine SARS-COV-2 COVID-19 2022-05-03 17:15:59 [facility] ANA-SUCROSE VACCINE 12 [facility] YRS+, BIVALENT 0.3ML, IM, (PFIZER GURROLA TOP BOOSTER) ASSIGNMENT OF BENEFITS 2022-05-03 15:36:21 Doctor Unassigned, No [facility] MRI CERVICAL SPINE W/O 2022-04-21 00:00:00 Rubio kelley [facility] CONTRAST Sports Medicine XR, cervical spine, 2 or 2022-04-21 00:00:00 Josie holguin Orthopedic 3 view Sports Medicine Colonoscopy 2020-01-14 00:00:00 Мария Ortho pedic Sports Medicine CT ANGIOGRAM 2019-05-04 17:40:00 Attdanita [facility] [place] ABDOMEN/PELVIS Medical Branch NOTICE OF PRIVACY 2019-05-04 16:43:10 Doctor Unassigned, No [facility] PRACTICES [facility] CONSENT/REFUSAL FOR 2019-05-04 16:42:42 Doctor Unassigned, [facility] [place] [facility]REAT[facility] ASSIGNMENT OF BENEFITS 2019-05-04 16:42:23 Doctor Unassigned, No [facility] POCT CREATININE 2019-05-04 16:31:00 [facility] Shoulder Surgery [facility] Heart Stent [facility]oped[facility] Medicine Heart Surgery Мария calderon Sports Medicine Plan of Care Planned Activity Planned Date Details Comments Source Future Scheduled 2023-06-08 Screening for malignant [facility] 20:45:47 neoplasm of colon Hospital (procedure) [code = 398829825] Future Scheduled 2023-06-08 Screening for malignant [facility] 20:45:47 neoplasm of colon Hospital (procedure) [code = 973011061] Future Scheduled 2023-06-08 Screening for malignant [facility] 20:45:47 neoplasm of colon Hospital (procedure) [code = 983276541] Future Scheduled 2023-06-08 COVID-19 VACCINE (#1) [facility] 20:[facility]47 [code = COVID-19 VACCINE Hos pital (#1)] Future Scheduled 2023-06-08 Hepatitis C screening [facility] 20:45:47 (procedure) [code = Hospital [id number]] Future Scheduled 2023-06-08 Screening for malignant [facility] 20:45:47 neoplasm of colon Hospital (procedure) [code = 883037678] Future Scheduled 2023-06-08 Screening for malignant [facility] 20:45:47 neoplasm of colon Hospital (procedure) [code = 023415086] Future Scheduled 2023-06-08 SHINGLES VACCINES (1 of [facility] 20:45:47 2) [code = SHINGLES Hospital VACCINES (1 of 2)] Future Scheduled 2023-06-08 65+ PNEUMOCOCCAL VACCINE [facility] 20:45:47 (2 - PCV) [code = 65+ Hospit al PNEUMOCOCCAL VACCINE (2 - PCV)] Future Scheduled 2023-06-08 INFLUENZA VACCINE (#1) [facility] 20:45:47 [code = INFLUENZA VACCINE Ho spital (#1)] Future Scheduled 2023-04-15 Influenza Vaccine [facility] [code = Influenza Vaccine Me dical Center (#1)] Future Scheduled 2023-04-15 Influenza Vaccine (#1) [facility] 00:[facility] [code = Influenza Vaccine Me dical Center (#1)] Future Scheduled 2023-04-15 Influenza Vaccine (#1) [facility] 00:00[facility]00 [code = Influenza Vaccine Me dical Center (#1)] Future Scheduled 2023-04-15 Influenza Vaccine (#1) [facility] 00:00[facility] [code = Influenza Vaccine Me dical Center (#1)] Future Scheduled 2023-04-15 Influenza Vaccine (#1) [facility] 00:[facility]00 [code = Influenza Vaccine Me dical Center (#1)] Future Scheduled 2023-03-21 Screening for malignant [facility] 05:42:00 neoplasm of colon Hospital (procedure) [code = 316209881] Future Scheduled 2023-03-21 Screening for malignant [facility] 05:42:00 neoplasm of colon Hospital (procedure) [code = 329253535] Future Scheduled 2023-03-21 Screening for malignant [facility] 05:42:00 neoplasm of colon Hospital (procedure) [code = 551751632] Future Scheduled 2023-03-21 COVID-19 VACCINE (#1) [facility] 05:42:00 [code = COVID-19 VACCINE Hos pital (#1)] Future Scheduled 2023-03-21 Hepatitis C screening [facility] 05:42:00 (procedure) [code = Hospital [id number]] Future Scheduled 2023-03-21 Screening for malignant [facility] 05:42:00 neoplasm of colon Hospital (procedure) [code = 927682078] Future Scheduled 2023-03-21 Screening for malignant [facility] 05:42:00 neoplasm of colon Hospital (procedure) [code = 713620171] Future Scheduled 2023-03-21 SHINGLES VACCINES (1 of [facility] 05:42:00 2) [code = SHINGLES Hospital VACCINES (1 of 2)] Future Scheduled 2023-03-21 65+ PNEUMOCOCCAL VACCINE [facility] 05:42:00 (2 - PCV) [code = 65+ Hospit al PNEUMOCOCCAL VACCINE (2 - PCV)] Future Scheduled 2023-03-21 INFLUENZA VACCINE [code = [facility] 05:42:00 INFLUENZA VACCINE] Hospital Future Scheduled 2023-03-21 Screening for malignant [facility] 05:42:00 neoplasm of colon Hospital (procedure) [code = 344886501] Future Scheduled 2023-03-21 Screening for malignant [facility] 05:42:00 neoplasm of colon Hospital (procedure) [code = 860684745] Future Scheduled 2023-03-21 Screening for malignant [facility] 05:42:00 neoplasm of colon Hospital (procedure) [code = 108542566] Future Scheduled 2023-03-21 COVID-19 VACCINE (#1) [facility] 05:42:00 [code = COVID-19 VACCINE Hos pital (#1)] Future Scheduled 2023-03-21 Hepatitis C screening [facility] 05:42:00 (procedure) [code = Hospital 971401603] Future Scheduled 2023-03-21 Screening for malignant [facility] 05:42:00 neoplasm of colon Hospital (procedure) [code = 702043866] Future Scheduled 2023-03-21 Screening for malignant [facility] 05:42:00 neoplasm of colon Hospital (procedure) [code = 159072437] Future Scheduled 2023-03-21 SHINGLES VACCINES (1 of [facility] 05:42:00 2) [code = SHINGLES Hospital VACCINES (1 of 2)] Future Scheduled 2023-03-21 65+ PNEUMOCOCCAL VACCINE [facility] 05:42:00 (2 - PCV) [code = 65+ Hospit al PNEUMOCOCCAL VACCINE (2 - PCV)] Future Scheduled 2023-03-21 INFLUENZA VACCINE [code = [facility] 05:42:00 INFLUENZA VACCINE] Hospital Future Scheduled 2023-02-03 Screening for malignant [facility] 03:08:58 neoplasm of colon Hospital (procedure) [code = 337984940] Future Scheduled 2023-02-03 Screening for malignant [facility] 03:08:58 neoplasm of colon Hospital (procedure) [code = 264861462] Future Scheduled 2023-02-03 Screening for malignant [facility] 03:08:58 neoplasm of colon Hospital (procedure) [code = 160111922] Future Scheduled 2023-02-03 COVID-19 VACCINE (#1) [facility] 03:08:58 [code = COVID-19 VACCINE Hos pital (#1)] Future Scheduled 2023-02-03 Hepatitis C screening [facility] 03:08:58 (procedure) [code = Hospital 005685713] Future Scheduled 2023-02-03 Screening for malignant [facility] 03:08:58 neoplasm of colon Hospital (procedure) [code = 043025838] Future Scheduled 2023-02-03 Screening for malignant [facility] 03:08:58 neoplasm of colon Hospital (procedure) [code = 296691611] Future Scheduled 2023-02-03 SHINGLES VACCINES (1 of [facility] 03:08:58 2) [code = SHINGLES Hospital VACCINES (1 of 2)] Future Scheduled 2023-02-03 65+ PNEUMOCOCCAL VACCINE [facility] 03:08:58 (2 - PCV) [code = 65+ Hospit al PNEUMOCOCCAL VACCINE (2 - PCV)] Future Scheduled 2023-02-03 INFLUENZA VACCINE [code = [facility] 03:08:58 INFLUENZA VACCINE] Hospital Future Scheduled 2023-02-03 Screening for malignant [facility] 03:08:58 neoplasm of colon Hospital (procedure) [code = 069376147] Future Scheduled 2023-02-03 Screening for malignant [facility] 03:08:58 neoplasm of colon Hospital (procedure) [code = 738627271] Future Scheduled 2023-02-03 Screening for malignant [facility] 03:08:58 neoplasm of colon Hospital (procedure) [code = 629879774] Future Scheduled 2023-02-03 COVID-19 VACCINE (#1) [facility] 03:08:58 [code = COVID-19 VACCINE Hos pital (#1)] Future Scheduled 2023-02-03 Hepatitis C screening [facility] 03:08:58 (procedure) [code = Hospital 800035453] Future Scheduled 2023-02-03 Screening for malignant [facility] 03:08:58 neoplasm of colon Hospital (procedure) [code = 485422990] Future Scheduled 2023-02-03 Screening for malignant [facility] 03:08:58 neoplasm of colon Hospital (procedure) [code = 049312161] Future Scheduled 2023-02-03 SHINGLES VACCINES (1 of [facility] 03:08:58 2) [code = SHINGLES Hospital VACCINES (1 of 2)] Future Scheduled 2023-02-03 65+ PNEUMOCOCCAL VACCINE [facility] 03:08:58 (2 - PCV) [code = 65+ Hospit al PNEUMOCOCCAL VACCINE (2 - PCV)] Future Scheduled 2023-02-03 INFLUENZA VACCINE [code = [facility] 03:08:58 INFLUENZA VACCINE] Hospital Future Scheduled 2022-08-[address] [facility] Test 00:00:00 (12+) [code = DEPRESSION Med ical Center SCREENING (12+)] Future Scheduled 2022-08-15 FALLS [address]ISK SCREENING [facility] 00:00:00 [code = FALLS RISK Medical C enter SCREENING] Future Scheduled 2022-08-[address] [facility] Test 00:00:00 (12+) [code = DEPRESSION Med ical Center SCREENING (12+)] Future Scheduled 2022-08-15 FALLS RISK SCREENING [facility] 00:00:00 [code = FALLS RISK Medical C enter SCREENING] Future Scheduled 2022-08-[address] [facility] 00:00:00 (12+) [code = DEPRESSION Med ical Center SCREENING (12+)] Future Scheduled 2022-08-15 F[address]S RISK SCREENING [facility] 00:00:00 [code = FALLS RISK Medical C enter SCREENING] Future Scheduled 2022-08-[address] [facility] 00:00:00 (12+) [code = DEPRESSION Med ical Center SCREENING (12+)] Future Scheduled 2022-08-15 FALLS RISK SCREENING [facility] 00:00:00 [code = FALLS RISK Medical C enter SCREENING] Future Scheduled 2022-08-[address] [facility] 00:00:00 (12+) [code = DEPRESSION Med ical Center SCREENING (12+)] Future Scheduled 2022-08-15 F[address]K SCREENING [facility] 00:00:00 [code = FALLS RISK Medical C enter SCREENING] Future Scheduled 2022-04-21 HEPATITIS B VACCINES (1 [facility] 09:46:47 of 3 - 3-dose series) Hospit al [code = HEPATITIS B VACCINES (1 of 3 - 3-dose series)] Future Scheduled 2022-04-21 COVID-19 VACCINE (#1) [facility] 09:46:47 [code = COVID-19 VACCINE Hos pital (#1)] Future Scheduled 2022-04-21 Hepatitis C screening [facility] 09:46:47 (procedure) [code = Hospital 999804960] Future Scheduled 2022-04-21 COLONOSCOPY SCREENING [facility] 09:46:47 [code = COLONOSCOPY Hospital SCREENING] Future Scheduled 2022-04-21 SHINGLES VACCINES (1 of [facility] 09:46:47 2) [code = [facility] VACCINES (1 of 2)] Future Scheduled 2022-04-21 INFLUENZA VACCINE [code = [facility] 09:46:47 INFLUENZA VACCINE] Hospital Future Scheduled 2021-06-[address] [facility] Test 00:00:00 Counseling and Screening Med ical Center (12+) [code = Tobacco Cessation Counseling and Screening (12+)] Future Scheduled 2021-06-[address] [facility] Test 00:00:00 Counseling and Screening Med ical Center (12+) [code = Tobacco Cessation Counseling and Screening (12+)] Future Scheduled 2021-06-[address] [facility] Test 00:00:00 Counseling and Screening Med ical Center (12+) [code = Tobacco Cessation Counseling and Screening (12+)] Future Scheduled 2021-06-[address] [facility] Test 00:00:00 Counseling and Screening Med ical Center (12+) [code = Tobacco Cessation Counseling and Screening (12+)] Future Scheduled 2021-06-[address] [facility] Test 00:00:00 Counseling and Screening Med ical Center (12+) [code = Tobacco Cessation Counseling and Screening (12+)] Future Scheduled 2021-05-09 PNEUMOCOCCAL 65+ YRS (2 - [facility] 00:00:00 PCV) [code = PNEUMOCOCCAL Me dical Center 65+ YRS (2 - PCV)] Future Scheduled 2020-11-[address] [facility] 00:[facility]:00 measurement (procedure) [facility] [code = 06537263] Future Scheduled 2020-11-[address] [facility] 00:00:00 measurement (procedure) [facility] [code = 69516945] Future Scheduled 2020-11-[address] [facility] 00:00:00 measurement (procedure) [facility] [code = 22023815] Future Scheduled 2020-11-[address] [facility] 00:00:00 measurement (procedure) [facility] [code = 46820046] Future Scheduled 2020-11-[address] [facility] 00:00:00 measurement (procedure) [facility] [code = 23339121] Future Scheduled 2007-11-15 Screening for malignant [facility] Test 00:00:00 neoplasm of lung [facility] (procedure) [code = 898414199] Future Scheduled 2007-11-15 SHINGLES VACCINES ([address] [facility] 00:00:00 2) [code = SHINGLES Medical Center VACCINES (1 of 2)] Future Scheduled 2007-11-15 SHINGLES VACCINES ([address] [facility] 00:00:00 2) [code = SHINGLES Medical Center VACCINES (1 of 2)] Future Scheduled 2007-11-15 SHINGLES VACCINES ([address] [facility] 00:00:00 2) [code = SHINGLES Medical Center VACCINES (1 of 2)] Future Scheduled 2007-11-15 SHINGLES VACCINES ([address] [facility] 00:00:00 2) [code = SHINGLES Medical Center VACCINES (1 of 2)] Future Scheduled 2007-11-15 SHINGLES VACCINES ([address] [facility] 00:00:00 2) [code = SHINGLES Medical Center VACCINES (1 of 2)] Future Scheduled 1992 Lipid panel (procedure) [facility] 00:00:00 [code = 98126370] Medical Ce nter Future Scheduled 1992 Lipid panel (procedure) [facility] 00:00:00 [code = 48893224] Medical Ce nter Future Scheduled 1992 Lipid panel (procedure) [facility] 00:00:00 [code = 86663422] Medical Ce nter Future Scheduled 1992 Lipid panel (procedure) [facility] 00:00:00 [code = 87525549] Medical Ce nter Future Scheduled 1992 Lipid panel (procedure) [facility] 00:00:00 [code = 68853109] Medical Ce nter Future Scheduled 1976 DTAP/TDAP/TD VACCINES ([address] [facility] 00:00:00 - Tdap) [code = Medical Cent er DTAP/TDAP/TD VACCINES (1 - Tdap)] Future Scheduled 1976 DTAP/TDAP/TD VACCINES ([address] [facility] 00:00:00 - Tdap) [code = Medical Cent er DTAP/TDAP/TD VACCINES (1 - Tdap)] Future Scheduled 1976 DTAP/TDAP/TD VACCINES ([address] [facility] 00:00:00 - Tdap) [code = Medical Cent er DTAP/TDAP/TD VACCINES (1 - Tdap)] Future Scheduled 1976 DTAP/TDAP/TD VACCINES ([address] [facility] 00:00:00 - Tdap) [code = Medical Cent er DTAP/TDAP/TD VACCINES (1 - Tdap)] Future Scheduled 1976 DTAP/TDAP/TD VACCINES ([address] [facility] 00:00:00 - Tdap) [code = Medical Cent er DTAP/TDAP/TD VACCINES (1 - Tdap)] Future Scheduled 1975-11-15 HE[facility]ITIS C [facility] [code = HEPATITIS C Medical Center SCREENING] Future Scheduled 1975-11-15 [facility]ITIS C [facility] 00:00:00 [code = HEPATITIS C Medical Center SCREENING] Future Scheduled 1975-11-15 [facility]PATITIS C [facility] 00:00:00 [code = HEPATITIS C Medical Center SCREENING] Future Scheduled 1975-11-15 [facility]ITIS C [facility] 00:00:00 [code = HEPATITIS C Medical Center SCREENING] Future Scheduled 1975-11-15 [facility]PATITIS C [facility] 00:00:00 [code = HEPATITIS C Medical Center SCREENING] Future Scheduled [address] [facility] 00:[facility]:00 virus screening [facility] Cent [facility] (procedure) [code = 671246667] Future Scheduled [address] [facility] 00:00:00 virus screening Medical Cent er (procedure) [code = 253149590] Future Scheduled [address] [facility] 00:00:00 virus screening Medical Cent er (procedure) [code = 204048098] Future Scheduled [address] [facility] 00:00:00 virus screening Medical Cent er (procedure) [code = 265339160] Future Scheduled [address] [facility] 00:00:00 virus screening Medical Cent er (procedure) [code = 468682064] Future Scheduled 1967-11-15 DIABETIC EYE EXAM [code = [facility] 00:00:00 DIABETIC EYE EXAM] Medical C enter Future Scheduled 1967-11-15 Diabetic foot examination [facility] 00:00:00 (regime/therapy) [code = [facility] 186972575] Future Scheduled 1967-11-15 Urine screening for [facility] 00:00:00 protein (procedure) [code Or dical Center = 226077302] Future Scheduled 1967-11-15 DIABETIC EYE EXAM [code = [facility] 00:00:00 DIABETIC EYE EXAM] Medical C enter Future Scheduled 1967-11-15 Diabetic foot examination [facility] 00:00:00 (regime/therapy) [code = [facility] 961552027] Future Scheduled 1967-11-15 Urine screening for [facility] 00:00:00 protein (procedure) [code Me dical Center = 254185778] Future Scheduled 1967-11-15 DIABETIC EYE EXAM [code = [facility] 00:00:00 DIABETIC EYE EXAM] Medical C enter Future Scheduled 1967-11-15 Diabetic foot examination [facility] 00:00:00 (regime/therapy) [code = [facility] 807345226] Future Scheduled 1967-11-15 Urine screening for [facility] 00:00:00 protein (procedure) [code Me dical Center = 910644492] Future Scheduled 1967-11-15 DIABETIC EYE EXAM [code = [facility] 00:00:00 DIABETIC EYE EXAM] Medical C enter Future Scheduled 1967-11-15 Diabetic foot examination [facility] 00:00:00 (regime/therapy) [code = [facility] 712195928] Future Scheduled 1967-11-15 Urine screening for [facility] 00:00:00 protein (procedure) [code Or dical Center = 827977435] Future Scheduled 1967-11-15 DIABETIC EYE EXAM [code = [facility] 00:00:00 DIABETIC EYE EXAM] Medical C enter Future Scheduled 1967-11-15 Diabetic foot examination [facility] 00:00:00 (regime/therapy) [code = [facility] 001230975] Future Scheduled 1967-11-15 Urine screening for [facility] 00:00:00 protein (procedure) [code Me dical Center = 081936835] Future Scheduled 1958-05-16 COVID-19 VACCINE (#1[facility] [code = COVID-19 VACCINE Med ical Center (#1)] Future Scheduled 1958-05-16 COVID-19 VACCINE (#1[facility]:00:00 [code = COVID-19 VACCINE Med ical Center (#1)] Future Scheduled 1958-05-16 COVID-19 VACCINE (#1) [facility] 00:00:00 [code = COVID-19 VACCINE Med ical Center (#1)] Future Scheduled 1958-05-16 COVID-19 VACCINE (#1) [facility] 00:00:00 [code = COVID-19 VACCINE Med ical Center (#1)] Future Scheduled 1958-05-16 COVID-19 VACCINE (#1) [facility] 00:00:00 [code = COVID-19 VACCINE Med ical Center (#1)] Future Scheduled 1957 Screening for malignant [facility] 00:00:00 neoplasm of colon Medical Ce nter (procedure) [code = 734542857] Future Scheduled 1957 Screening for malignant [facility] 00:00:00 neoplasm of colon Medical Ce nter (procedure) [code = 834574907] Future Scheduled 1957 Screening for malignant [facility] 00:00:00 neoplasm of colon Medical Ce nter (procedure) [code = 967983648] Future Scheduled 1957 Sigmoidoscopy [code = [facility] Colon[facility] (combo[facility] 00:00:00 [code = CT Colonography [facility] (combo)] Future Scheduled 1957 Screening for malignant [facility] 00:00:00 neoplasm of colon Medical Ce nter (procedure) [code = 649710480] Future Scheduled 1957 Screening for malignant [facility] 00:00:00 neoplasm of colon Medical Ce nter (procedure) [code = 502820827] Future Scheduled 1957 Screening for malignant [facility] 00:00:00 neoplasm of colon Medical Ce nter (procedure) [code = 436492970] Future Scheduled 1957 Screening for malignant [facility] 00:00:00 neoplasm of colon Medical Ce nter (procedure) [code = 510204105] Future Scheduled 1957 Sigmoidoscopy [code = [facility] S[facility]oidoscopy] Medical Cente r Future Scheduled 1957 CT Colonography (combo) [facility] 00:00:00 [code = CT Colonography [facility] (combo)] Future Scheduled 1957 Screening for malignant [facility] 00:00:00 neoplasm of colon Medical Ce nter (procedure) [code = 148679144] Future Scheduled 1957 Screening for malignant [facility] Test 00:00:00 neoplasm of colon Medical Ce nter (procedure) [code = 752215973] Future Scheduled 1957 Screening for malignant [facility] 00:00:00 neoplasm of colon Medical Ce nter (procedure) [code = 579583692] Future Scheduled 1957 Screening for malignant [facility] 00:00:00 neoplasm of colon Medical Ce nter (procedure) [code = 913127377] Future Scheduled 1957 Sigmoidoscopy [code = [facility] 00:[facility] Sigmoidoscopy] Medical Cente r Future Scheduled 1957 CT Colonography (combo) [facility] 00:00:00 [code = CT Colonography [facility] (combo)] Future Scheduled 1957 Screening for malignant [facility] 00:00:00 neoplasm of colon Medical Ce nter (procedure) [code = 289963215] Future Scheduled 1957 Screening for malignant [facility] 00:00:00 neoplasm of colon Medical Ce nter (procedure) [code = 982645156] Future Scheduled 1957 Screening for malignant [facility] 00:00:00 neoplasm of colon Medical Ce nter (procedure) [code = 198559791] Future Scheduled 1957 Screening for malignant [facility] 00:00:00 neoplasm of colon Medical Ce nter (procedure) [code = 797667692] Future Scheduled 1957 Sigmoidoscopy [code = [facility] 00:[facility] Sigmoidoscopy] Medical Cente r Future Scheduled 1957 CT Colonography (combo) [facility] 00:00:00 [code = CT Colonography [facility] (combo)] Future Scheduled 1957 Screening for malignant [facility] 00:00:00 neoplasm of colon Medical Ce nter (procedure) [code = 710268765] Future Scheduled 1957 CT Colonography (combo) [facility] 00:00:00 [code = CT Colonography [facility] (combo)] Future Scheduled 1957 Screening for malignant [facility] 00:00:00 neoplasm of colon Medical Ce nter (procedure) [code = 298300937] Future Scheduled 1957 Screening for malignant [facility] Test 00:00:00 neoplasm of colon Medical Ce nter (procedure) [code = 542132934] Future Scheduled 1957 Screening for malignant [facility] 00:00:00 neoplasm of colon Medical Ce nter (procedure) [code = 020195373] Future Scheduled 1957 Screening for malignant [facility] 00:00:00 neoplasm of colon Medical Ce nter (procedure) [code = 308167383] Future Scheduled 1957 Sigmoidoscopy [code [facility] Sigmoidoscopy] Medical Cente r Encounters Start End Encounter Admission Attending Care Care Encounter Source Date/Time Date/Time Type Type Clinicians Facility Department ID 2022-06-09 Outpatient Mccracken, Na [facility] ST[facility] [id number] 2 Common 11:43:00 [id number] [facility] 2021-11-13 Outpatient Mccracken, Na [facility] ST[facility] [id number] 2 Common 13:00:01 [facility] 2021-09-09 Outpatient Mccracken, Na STLMLC STLC [id number] 2 Common 14:29:36 [id number] [facility] 2021-09-09 Outpatient Mccracken, Na ST[facility] STLC [id number] 2 Common 14:08:03 [id number] [facility] 2021-09-09 Outpatient Mccracken, Na STLMLC STLMLC [id number] 2 Common 12:45:46 [id number] [facility] 2021-09-09 Outpatient Mccracken, Na STLMLC STLMLC [id number] 2 Common 12:44:17 [id number] [facility] 2021-09-09 Outpatient Mccracken, Na STLMLC STLMLC [id number] 2 Common 12:16:29 [id number] [facility] 2021-09-09 Outpatient Mccracken, Na STLMLC STLMLC [id number] 2 Common 11:49:19 10503 [facility] 2021-09-09 Outpatient Mccracken, Na STLMLC STLMLC [id number] 2 Common 11:26:15 [id number] [facility] 2021-09-09 Outpatient Mccracken, Na STLMLC STLMLC [id number] 2 Common 11:24:21 [id number] [facility] 2021-09-09 Outpatient Mccracken, Na STLMLC STLMLC [id number] 2 Common 11:18:03 [id number] [facility] 2021-09-09 Outpatient Mccracken, Na STLMLC STLMLC [id number] 2 Common 11:16:28 [id number] [facility] 2021-05-20 Inpatient LETSOU, [facility] Surgery [id number] [facility] 09:06:21 ARTHUR 2023-07-04 2023-07-04 Outpatient Charlie [facility] [id number] [facility] 11:00:00 11:00:00 TOBI merritt [facility] 2023-06-22 2023-06-22 Ramírez Castellano [facility] [id number] Univers 00:00:00 00:00:00 Tobi [facility] [id number] it y of [place] [id number] Luis as LEATHA?BLEA [id number] [address] MEDICAL OFFICE BUILDING 2023-05-16 2023-05-16 Outpatient FOG_Patel_R AOSM AOSM [id number] Мария 00:00:00 00:00:00 Tomas [id number] [facility] 2023-05-07 2023-05-07 Outpatient FOG_Patel_R AOSM AOSM [id number] Мария 00:00:00 00:00:00 Tomas [id number] [facility] 2023-05-07 2023-05-07 Outpatient FOG_Patel_R AOSM AOSM [id number] Мария 00:00:00 00:00:00 Tomas [id number] [facility] 2023-04-27 2023-04-27 [facility] [id number] Univers 00:00:00 00:00:00 [facility] 350.1.13.10 it y of [place] 4.2.7.2.686 Luis as LEATHA?BLEA [phone] [address] MEDICAL OFFICE [facility] 2023-04-25 2023-04-25 Orders Doctor MOR 1.2.840.114 [id number] Univers 00:00:00 00:00:00 Only Unassigned, JUSTIN 350.1.13.10 ity of [place] [facility] 4.2.7.2.686 Luis as [phone] [address] 2023-04-08 2023-04-08 Office [facility] 1.2.840.114 [id number] Univers 13:30:00 14:00:00 Visit [facility] 350.1.13.10 it y of [place] 4.2.7.2.686 Luis as LEATHA?BLEA [id number] [address] MEDICAL OFFICE [facility] 2023-04-08 2023-04-08 Outpatient R GRAY [facility] [id number] Univers 13:30:00 13:30:00 TOBI merritt [facility] 2023-04-04 2023-04-04 Outpatient R GRAY [facility] [id number] Univers 11:30:00 11:30:00 TOBI merritt [facility] 2023-04-01 2023-04-01 Orders Doctor MOR 1.2.840.114 [id number] Univers 00:00:00 00:00:00 Only Unassigned, JUSTIN 350.1.13.10 ity of [place] [facility] 4.2.7.2.686 Luis as [id number] [address] 2023-03-28 2023-03-28 [facility] 1.2.840.114 [id number] Univers 00:00:00 00:00:00 [facility] 350.1.13.10 it y of [place] [facility] 4.2.7.2.686 Luis as LEATHA?BLEA [id number] [address] MEDICAL OFFICE [facility] 2023-03-21 2023-03-24 Inpatient MARY BETH Rebollar, MERISSACL INTE [id number] [facility] 08:08:00 11:48:00 Salomon 19 [facility] 2023-03-17 2023-03-17 Outpatient MARY BETH Rebollar, HCACL 3DAY [id number] [facility] 08:00:00 23:00:00 Salomon 68 [facility] 2023-03-08 2023-03-08 Outpatient MARY BETH Treviño, HCACL OUTD [id number] [facility] 05:42:00 05:42:00 Dalton 33 [facility] 2023-03-01 2023-03-01 Outpatient MARY BETH Treviño, HCACL OUTD [id number] [facility] 05:47:00 05:47:00 Dalton 10 [facility] 2023-02-14 2023-02-14 [facility] 1.2.840.114 [id number] Univers 00:00:00 00:00:00 [facility] 350.1.13.10 it y of [place] [facility] 4.2.7.2.686 Luis as LEATHA?BLEA [id number] [address] MEDICAL OFFICE [facility] 2023-02-14 2023-02-14 [facility] 1.2.840.114 [id number] Univers 00:00:00 00:00:00 [facility] 350.1.13.10 it y of [facility] 4.2.7.2.686 Luis as LEATHA?BLEA [id number] [address] OFFICE [facility] 2023-02-11 2023-02-11 [facility] 1.2.840.114 [id number] Univers 00:00:00 00:00:00 [facility] 350.1.13.10 it y of [place] 4.2.7.2.686 Luis as LEATHA?BLEA [id number] [address] OFFICE [facility] 2023-02-07 2023-02-07 Patient Doctor MOR 1.2.840.114 [id number] Univers 00:00:00 00:00:00 Secure Msg Unassigned, JUSTIN 350.1.13.10 ity of [facility] 4.2.7.2.686 Luis as [id number] [address] 2023-01-07 2023-01-07 [facility] 1.2.840.114 [id number] Univers 00:00:00 00:00:00 [facility] 350.1.13.10 it y of [place] 4.2.7.2.686 Luis as LEATHA?BLEA [id number] [address] 2023-01-05 2023-01-05 Outpatient FOG_Patel_R AOSM AOSM 551 [id number] Мария 00:00:00 00:00:00 Tomas [id number] [facility] 2023-01-05 2023-01-05 Outpatient FOG_Patel_R AOSM AOSM 551 [id number] Мария 00:00:00 00:00:00 Tomas [id number] [facility] 2022-12-27 2022-12-27 [facility] [id number] Univers 10:39:45 23:59:00 TOBI merritt of [facility] 2022-12-27 2022-12-27 [facility] 1.2.840.114 [id number] Univers 10:39:45 23:59:00 Encounter Tobi KHAN 350.1.13.10 ity of [place] 4.2.7.2.686 [place] [phone] [facility] [address] 2022-12-27 2022-12-27 Orders Doctor MOR 1.2.840.114 [id number] Univers 00:00:00 00:00:00 Only Unassigned, JUSTIN 350.1.13.10 ity of [place] [facility] 4.2.7.2.686 Luis as [phone] [facility] [address] 2022-12-20 2022-12-20 Telephone [facility] 1.2.664.134 [id number] Univers 00:00:00 00:00:00 Tobi Arara 350.1.13.10 it y of [facility] 4.2.7.2.686 Luis as LEATHA?BLEA [id number] [address] OFFICE [facility] 2022-12-17 2022-12-17 Final Cigar And Box Examiner Lab, Ang - Db [facility] 1.2.840.1 14 [id number] Univers 13:00:00 13:15:00 Visit Tobi Castellano 350.1.13.10 ity of [place] 4.2.7.2.686 Luis as LEATHA?BLEA [phone] [facility] OFFICE [facility] 2022-12-17 2022-12-17 Outpatient [facility] [id number] Univers 11:00:00 12:10:13 TOBI merritt [facility] 2022-12-17 2022-12-17 [facility] 1.2.840.114 [id number] Univers 11:00:00 12:10:13 Visit Tobi [facility] 350.1.13.10 it y of [place] 4.2.7.2.686 Luis as LEATHA?BLEA [id number] [address] OFFICE [facility] 2022-12-10 2022-12-10 Outpatient [facility] [id number] Univers 09:30:00 09:30:00 TOBI merritt [facility] 2022-11-30 2022-11-30 Outpatient FOG_Patel_R AOSM AOSM 551 [id number] Мария 00:00:00 00:00:00 Tomas [id number] [facility] 2022-11-29 2022-11-29 Outpatient FOG_Patel_R AOSM AOSM 551 [id number] Мария 00:00:00 00:00:00 Tomas [id number] [facility] 2022-10-20 2022-10-20 Orders Doctor MOR 1.2.840.114 [id number] Univers 00:00:00 00:00:00 Only Unassigned, JUSTIN 350.1.13.10 ity of [place] [facility] 4.2.7.2.686 Luis as [phone] [address] 2022-10-11 2022-10-11 [facility] 1.2.840.114 [id number] Univers 00:00:00 00:00:00 Tobi HEALTH 350.1.13.10 it y of [facility] 4.2.7.2.686 Luis as LEATHA?BLEA [id number] [address] MEDICAL OFFICE [facility] 2022-09-16 2022-09-16 Orders Doctor MOR 1.2.840.114 [id number] Univers 00:00:00 00:00:00 Only Unassigned, JUSTIN 350.1.13.10 ity of [place] [facility] 4.2.7.2.686 Luis as [id number] [address] 2022-08-31 2022-08-31 [facility] 1.2.840.114 [id number] Univers 00:00:00 00:00:00 Tobi HEALTH 350.1.13.10 it y of [facility] 4.2.7.2.686 Luis as LEATHA?BLEA [id number] [address] MEDICAL OFFICE [facility] 2022-08-30 2022-08-30 Jose PEREZ [place] - Ortho [id number] Мария 00:00:00 00:00:00 MD Darrel: Sonal Cole - Orthope [address] FOG_Ofc dic [place], [employer] [address], [place] [address] , Ph. [phone] 2022-08-26 2022-08-26 Outpatient FOG_Patel_R AOSM AOSM 551 [id number] Мария 00:00:00 00:00:00 Tomas [id number] Orthop e [facility] Medicin e 2022-08-26 2022-08-26 Outpatient FOG_Patel_R AOSM AOSM 551 [id number] Мария 00:00:00 00:00:00 Tomas [id number] Orthop e dic Sports Medicin e 2022-08-26 2022-08-26 Outpatient FOG_Patel_R AOSM AOSM 551 [id number] Мария 00:00:00 00:00:00 Tomas [id number] Orthop e [facility]in e 2022-08-26 2022-08-26 Outpatient FOG_Patel_R AOSM AOSM 551 [id number] Мария 00:00:00 00:00:00 Tomas [id number] Orthop e dic Sports Medicin e 2022-08-16 2022-08-[address] [facility] 1.2.840.114 [id number] Univers 00:00:00 00:00:00 Secure Msg Shareable Ink 350.1.13.10 ity of [place] 4.2.7.2.686 Luis as LEATHA?BLEA [id number] [address] 2022-08-14 2022-08-14 Outpatient FOG_Patel_R AOSM AOSM 551 [id number] Мария 00:00:00 00:00:00 Tomas [id number] Orthop e dic Sports Medicin e 2022-08-13 2022-08-13 Final Cigar And Box Examiner Lab, Ang - Db [facility] 1.2.840.1 14 [id number] Univers 08:00:00 08:15:00 Visit Gray Tobi [facility] 350.1.13.10 ity of [place] 4.2.7.2.686 Luis as LEATHA?BLEA [id number] [address] OFFICE [facility] 2022-08-13 2022-08-13 Outpatient R GRAY [facility] [id number] Univers 08:00:00 08:00:00 TOBI merritt [facility] 2022-08-11 2022-08-11 Outpatient R GRAY [facility] [id number] Univers 09:00:00 09:45:54 TOBI merritt [facility] 2022-08-11 2022-08-[address] [facility] 1.2.840.114 [id number] Univers 09:00:00 09:45:54 Visit Tobi FLORES 350.1.13.10 it y of [place] 4.2.7.2.686 Luis as LEATHA?BLEA [id number] [address] OFFICE [facility] 2022-08-11 2022-08-[address] [facility] 1.2.474.361 [id number] Univers 00:00:00 00:00:00 Tobi FLORES 350.1.13.10 it y of [place] 4.2.7.2.686 Luis as LEATHA?BLEA [phone] [address] OFFICE [facility] 2022-08-11 2022-08-11 Orders Doctor MOR 1.2.840.114 [id number] Univers 00:00:00 00:00:00 Only Unassigned, JUSTIN 350.1.13.10 ity of [place] [facility] 4.2.7.2.686 Luis as [id number] [address] 2022-07-31 2022-07-31 Outpatient FOG_Patel_R AOSM AOSM 551 [id number] Мария 00:00:00 00:00:00 Tomas [id number] [facility] 2022-06-17 2022-06-17 Outpatient FOG_Patel_R AOSM AOSM 551 [id number] Мария 00:00:00 00:00:00 Tomas [id number] Orthop e dic Sports Medicin e 2022-06-17 2022-06-17 Jose Verdugo AOSM [place] - Ortho [id number] Мария 00:00:00 00:00:00 MD Darrel: Sonal Cole - Orthope [address] [place] FOG_Ofc dic [place], [employer] [address], [place] [address] , Ph. [phone] 2022-06-15 2022-06-15 Outpatient FOG_Patel_R AOSM AOSM 551 9900-20 Мария 00:00:00 00:00:00 Tomas [id number] Orthop e dic Sports Medicin e 2022-06-11 2022-06-11 [facility] [id number] Co mmon 00:00:00 00:00:00 VISIT [facility] - [facility] LEVEL 4 [facility] 2022-06-09 2022-06-09 Outpatient FOG_Patel_R AOSM AOSM 551 [id number] Мария 00:00:00 00:00:00 Tomas [id number] Orthop e dic Sports Medicin e 2022-06-02 2022-06-02 Outpatient FOG_Patel_R AOSM AOSM 551 [id number] Мария 00:00:00 00:00:00 Tomas [id number] Orthop e dic Sports Medicin e 2022-05-31 2022-05-31 Imm/Inj Nurse, Lionel [facility] 1.2.840.114 [id number] [facility] 10:40:00 11:00:00 Visit Tobi Castellano [facility] 350.1.13.10 [facility] 4.2.7.2.686 Luis as LEATHA?BLEA [phone] [facility] [address] MEDICAL OFFICE BUILDING 2022-05-31 2022-05-31 Outpatient R GRAY [facility] [id number] Univers 10:40:00 10:40:00 TOBI merritt [facility] 2022-05-27 2022-05-27 Outpatient FOG_Patel_R AOSM AOSM 551 [id number] Мария 00:00:00 00:00:00 Tomas [id number] Orthop e dic Sports Medicin e 2022-05-27 2022-05-27 (TEL) [facility] [id number] Co mmon 00:00:00 00:00:00 [facility] 2022-05-26 2022-05-26 Outpatient FOG_A_Provi AOSM AOSM 551 [id number] Мария 00:00:00 00:00:00 oumar [id number] Orthop e dic Sports Medicin e 2022-05-26 2022-05-26 Houtan A AOSM [place] - Ortho 12 Мария 00:00:00 00:00:00 MD Miranda: Sonal Oliva [address] FOG_Ofc dic [place], [employer] [address], [place] [address] , Ph. [phone] 2022-05-24 2022-05-24 Outpatient FOG_A_Provi AOSM AOSM 551 9900-20 Мария 00:00:00 00:00:00 oumar [id number] Orthop e dic Sports Medicin e 2022-05-03 2022-05-03 Imm/Inj Vaccine, Ang Db Cbc [facility] 1. 2.840.114 [id number] Univers 11:10:00 11:25:57 Visit Velasquez Ricardo [facility] 350.1.13.10 ity [facility] 4.2.7.2.686 Luis as LEATHA?BLEA [phone] [address] MEDICAL OFFICE BUILDING 2022-05-03 2022-05-03 Outpatient Charlie RICARDO [facility] [id number] [facility] 11:10:00 11:10:00 VELASQUEZ merritt [facility] 2022-05-03 2022-05-03 Orders Doctor MOR 1.2.840.114 [id number] Univers 00:00:00 00:00:00 Only Unassigned, CHILTON 350.1.13.10 ity of [place] [facility] 4.2.7.2.686 Luis as [phone] [address] 2022-04-27 2022-04-27 Outpatient FOG_A_Provi AOSM AOSM 551 [id number] Мария 00:00:00 00:00:00 oumar [id number] Orthop e dic Sports Medicin e 2022-04-21 2022-04-21 Outpatient FOG_A_Provi AOSM AOSM 551 [id number] Мария 00:00:00 00:00:00 oumar [id number] Orthop e dic Sports Medicin e 2022-04-21 2022-04-21 Outpatient CRHIS Jean AOSM [id number] 00:00:00 00:00:00 Sade Kelley [id number] 2022-04-21 2022-04-21 Hohawa Kelley AOSM [place] - Ortho 00:00:00 00:00:00 MD Miranda: Sonal Cole - Orthope [address] FOG_Ofc dic [place], [employer] [address], Medicin [place], [place] [address] , Ph. [phone] 2022-03-31 2022-03-31 Outpatient FOG_A_Provi AOSM AOSM 551 [id number] Мария 00:00:00 00:00:00 oumar [id number] Orthop e dic Sports Medicin e 2022-03-08 2022-03-08 OFFICE STLC STLC [id number] Co mmon 00:00:00 00:00:00 VISIT Spirit ESTAB PT - CHI LEVEL 4 [facility] 2021-11-17 2021-11-17 SUB ANNUAL STLC STLC [id number] Common 00:00:00 00:00:00 MCR Spirit WELLNESS - CHI VISIT [facility] 2021-11-17 2021-11-17 OFFICE STLMLC STLC [id number] Co mmon 00:00:00 00:00:00 VISIT EST Spir it PT LEVEL 3 - CHI [facility] 2021-08-17 2021-08-17 (TEL) STLMLC STLMLC [id number] Co mmon 00:00:00 00:00:00 Spirit - CHI [facility] 2021-08-17 2021-08-17 OL DIG E/M STLMLC STLMLC [id number] Common 00:00:00 00:00:00 SVC 21+ Spirit MIN - CHI [facility] 2021-06-12 2021-06-12 (COVID STLMLC STLMLC [id number] Co mmon 00:00:00 00:00:00 Inj) COVID Spi rit Injection - CHI [facility] 2021-06-10 2021-06-10 (TEL) STLMLC STLMLC [id number] Co mmon 00:00:00 00:00:00 Spirit - CHI [facility] 2021-06-02 2021-06-02 SUB ANNUAL STLMLC STLMLC [id number] Common 00:00:00 00:00:00 MCR [facility] WELLNESS - [facility] VISIT [facility] 2021-05-21 2021-05-21 (TEL) STLMLC STLMLC [id number] Co mmon 00:00:00 00:00:00 [facility] 2021-05-15 2021-05-15 OFFICE STLMLC STLMLC [id number] Co mmon 00:00:00 00:00:00 VISIT [facility] PT - [facility] LEVEL 4 [facility] 2021-02-13 2021-02-13 Outpatient STLMLC STLMLC [id number] Common 00:00:00 00:00:00 [facility] 2020-12-11 2020-12-11 Outpatient STLMLC STLMLC [id number] Common 00:00:00 00:00:00 [facility] 2020-11-18 2020-11-18 Outpatient STLMLC STLMLC [id number] Common 00:00:00 00:00:00 [facility] 2020-11-07 2020-11-07 Outpatient STLMLC STLMLC [id number] Common 00:00:00 00:00:00 [facility] 2020-10-31 2020-10-31 Outpatient STLMLC STLMLC [id number] Common 00:00:00 00:00:00 [facility] 2020-08-28 2020-08-28 Outpatient STLMLC STLMLC [id number] Common 00:00:00 00:00:00 [facility] 2020-08-23 2020-08-23 Outpatient Charlie LE [facility] [id number] Univers 09:40:00 09:40:00 MILTON merritt [facility] 2020-08-14 2020-08-14 Outpatient STLMLC STLMLC [id number] Common 00:00:00 00:00:00 [facility] 2020-08-12 2020-08-12 Outpatient STLMLC STLMLC [id number] Common 00:00:00 00:00:00 [facility] 2020-08-09 2020-08-09 Outpatient Charlie WONG [facility] [id number] Univers 09:20:00 09:20:00 ALLEY ity [facility] 2020-08-09 2020-08-09 Laboratory Lab, [facility] Fam Pob I [facility] 1.2. 840.114 [id number] [facility] 08:35:24 08:55:24 Only Alley Wong 350.1.13.10 ity of [place] 4.2.7.2.686 Luis as Professio [phone] Or dical [address] Office Building One 2020-08-09 2020-08-09 Laboratory Lab, [facility] 1.2.840.114 [id number] 08:35:24 08:55:24 Only Fam Pob I Health 350.1.13.10 [place] 4.2.7.2.686 Professio [phone] [place] [address] Office Building [facility] 2020-07-23 2020-07-23 Outpatient STLMLC STLMLC [id number] Common 00:00:00 00:00:00 [facility] 2020-07-23 2020-07-23 Outpatient BRONWYN AGUIRRE [facility] [id number] [place] 00:00:00 00:00:00 003 Method i 2020-07-02 2020-07-02 Outpatient STLMLC STLMLC [id number] Common 00:00:00 00:00:00 [facility] 2020-06-21 2020-06-21 Outpatient STLMLC STLMLC [id number] Common 00:00:00 00:00:00 [facility] 2020-06-18 2020-06-18 Outpatient EL BECKYSOU, SLEH SLEH [id number] [facility] 00:00:00 00:00:00 ARTHUR 2020-06-12 2020-06-12 Outpatient STLMLC STLMLC [id number] Common 00:00:00 00:00:00 [facility] 2020-05-28 2020-05-28 Outpatient SLEH SLEH [id number] SLEH 00:00:00 00:00:00 2020-05-28 2020-05-28 Outpatient EL SLEH SLEH [id number] SLEH 00:00:00 00:00:00 2020-05-22 2020-05-22 Outpatient STLMLC STLMLC [id number] Common 00:00:00 00:00:00 [facility] 2020-05-22 2020-05-22 Outpatient STLMLC STLMLC [id number] Common 00:00:00 00:00:00 [facility] 2020-05-21 2020-05-21 Outpatient MARY BETH SLEH SLE[facility] [id number] SLEH 00:00:00 00:00:00 2020-05-20 2020-05-20 Outpatient STLMLC STLMLC [id number] Common 00:00:00 00:00:00 [facility] 2020-05-14 2020-05-14 Outpatient MARY BETH HUDSON SLEElda SLEH [id number] SLEH 00:00:00 00:00:00 ARTHUR 2020-05-12 2020-05-12 Outpatient STLMLC STLMLC [id number] Common 00:00:00 00:00:00 [facility] 2020-05-09 2020-05-09 Outpatient STLMLC STLMLC [id number] Common 00:00:00 00:00:00 [facility] 2020-05-08 2020-05-08 Outpatient STLMLC STLMLC [id number] Common 00:00:00 00:00:00 [facility] 2020-04-22 2020-04-22 Outpatient PONCHOALY BRONWYN [facility] [id number] [place] 00:00:00 00:00:[address] 2020-03-13 2020-03-13 Outpatient TIMOTHY BRONWYN [facility] [id number] [place] 00:00:00 00:00:[address] 2020-03-13 2020-03-13 Outpatient TIMOTHY BRONWYN [facility] [id number] [place] 00:00:00 00:00:[address] 2020-03-13 2020-03-13 Outpatient TIMOTHY BRONWYN [facility] [id number] [place] 00:00:00 00:00:[address] 2020-03-13 2020-03-13 Outpatient TIMOTHY BRONWYN [facility] [id number] [place] 00:00:00 00:00:[address] 2020-02-25 2020-02-25 Outpatient [facility] [id number] Common 10:06:00 10:06:[address] [facility] 2020-02-08 2020-02-08 Outpatient BRONWYN AGUIRRE [facility] [id number] [place] 00:00:00 00:00:[address] 2020-01-31 2020-01-31 Outpatient [facility] [id number] Common 16:12:00 16:12:00 t [facility] [address] Spir it Road [facility] 2020-01-24 2020-01-24 Outpatient [facility] [id number] Common 14:27:00 14:27:[address] [facility] 2020-01-14 2020-01-14 Outpatient [facility] [id number] Common 09:43:00 09:43:[address] [facility] 2019-12-06 2019-12-06 Outpatient [facility] [id number] Common 10:24:00 10:24:[address] [facility] 2019-12-04 2019-12-04 Outpatient BRONWYN AGUIRRE [facility] [id number] [place] 00:00:00 00:00:[address] 2019-11-26 2019-11-26 Outpatient [facility] [id number] Common 11:11:00 11:11:[address] [facility] 2019-11-16 2019-11-16 Outpatient [facility] [id number] Common 08:40:00 08:40:[address] [facility] 2019-10-18 2019-10-18 Outpatient [facility] [id number] Common 14:21:00 14:21:[address] [facility] 2019-08-16 2019-08-16 Outpatient [facility] [id number] Common 08:00:00 08:00:[address] Sp[address] [facility] 2019-06-14 2019-06-14 Outpatient ATTAR, [facility] [id number] [place] 00:00:00 00:00:00 MOHAMMED Lynne oneal 2019-05-28 2019-05-28 Outpatient [facility] [id number] Common 16:12:00 16:12:[address] [facility] 2019-05-10 2019-05-10 [facility] [id number] Common 15:12:00 15:12:[address] [facility] 2019-05-10 2019-05-10 [facility] [id number] Common 08:20:00 08:20:[address] [facility] 2019-05-04 2019-05-04 [facility] [id number] [facility] 11:30:00 23:59:00 Encounter Troy Dorcas [id number] [facility] [id number] [facility] [id number] [address] 2019-05-04 2019-05-04 [facility] [id number] 11:30:00 23:59:00 Encounter Troy Sigourney [id number] [place] [id number] [place] [id number] 2019-04-26 2019-04-26 [facility] [id number] Common 10:03:00 10:03:[address] [facility] 2019-02-05 2019-02-05 [facility] [id number] Common 13:55:00 13:55:[address] [facility] 2019-02-05 2019-02-05 [facility] [id number] Common 09:40:00 09:40:[address] Family - [facility] 2018-12-15 2018-12-15 [facility] [id number] Common 14:33:00 14:33:[address] [facility] 2018-12-06 2018-12-06 [facility] [id number] Common 08:45:00 08:45:[address] [facility] 2018-12-06 2018-12-06 [facility] [id number] Common 08:23:00 08:23:[address] [facility] 2018-11-22 2018-11-22 [facility] [id number] Common 09:23:00 09:23:[address] [facility] 2018-11-21 2018-11-21 [facility] [id number] Common 10:16:00 10:16:[address] [facility] 2018-11-10 2018-11-10 [facility] [id number] Common 08:15:00 08:15:[address] [facility] 2018-09-21 2018-09-21 [facility] [id number] Common 15:00:00 15:00:[address] [facility] 2018-08-29 2018-08-29 [facility] [id number] Common 15:57:00 15:57:[address] [facility] 2018-08-11 2018-08-11 [facility] [id number] Common 08:30:00 08:30:[address] [facility] 2018-05-08 2018-05-08 [id number] Common 11:56:00 11:56:[address] [facility] 2018-05-04 2018-05-04 [facility] [id number] Common 10:17:00 10:17:[address] [facility] 2018-04-28 2018-04-28 [facility] [id number] Common 09:45:00 09:45:[address] [facility] 2018-04-07 2018-04-07 Outpatient EDWARD LEON [id number] Memoria 09:30:00 09:30:00 02 haydee Augustin 2018-04-07 2018-04-07 Outpatient EDWARD LEON [id number] Memoria 09:30:00 09:30:00 02 haydee Augustin 2018-03-15 2018-03-15 [facility] [id number] Common 09:11:00 09:11:[address] [facility] 2018-02-14 2018-02-14 [facility] [id number] Common 08:46:00 08:46:[address] [facility] 2018-01-27 2018-01-27 [facility] [id number] Common 08:15:00 08:15:[address] [facility] 2018-01-06 2018-01-06 Outpatient EDWARD LEON [id number] Memoria 09:30:00 09:30:00 01 haydee Augustin 2018-01-06 2018-01-06 Outpatient EDWARD LEON [id number] Memoria 09:30:00 09:30:00 01 haydee Augustin 2017-12-09 2017-12-09 Outpatient EDWARD LEON [id number] Memoria 09:45:00 09:45:00 00 haydee Augustin 2017-12-09 2017-12-09 Outpatient EDWARD LEON [id number] Memoria 09:45:00 09:45:00 00 haydee Augustin Results Test Description Test Time Test Comments Results Result Comments Source GLUCOSE BEDSIDE 2023-03-24 06:40:00 Test Item Value Reference Range Interpretation Comme nts GLUCOSE BEDSIDE (test code = 179 MG/DL 70-110 H Performed by certified wet and 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 operator at [facility]) [facility] BASIC METABOLIC [id number] 04:26:00 Test Item Value Reference Range Interpretation Comments SODIUM (test code = 138 mEq/L 134-147 N NA) POTASSIUM (test code 4.6 mEq/L 3.4-5.0 N = K) CHLORIDE (test code 104 mEq/L 100-108 N = CL) CARBON DIOXIDE (test 29 mEq/l 21-33 N code = CO2) ANION GAP (test code 9 0-20 N = GAP) GLUCOSE (test code = 163 mg/dL 70-110 H GLU) BLOOD UREA NITROGEN 15 mg/dL 7-18 N (test code = BUN) GLOMERULAR 74.5 80-90 L The Glomerular FILTRATION RATE Filtration R ate is a (test code = GFR) calculated parameterbased on serum Creatinine, pat ient age and sex. GFR va luesless than 60 mL/min/ 1.73 square meters a re indicative ofCh ronic Kidney Disease. Values less than 15 mL/min/1.73squa re meters indicate Kidney failure. The calculation forGFR is based on the CKD-EPI (2020) calculat ion. This formulais race indifferent and is the recommended for arti for GFRby the Nat nal Kidney Foundati on for Adults.The GFR will not calculate if th e sex is unknown or if thepatient's ag e is <18 years. CREATININE (test 1.1 mg/dL 0.6-1.3 N code = CREAT) CALCIUM (test code = 9.2 mg/dL 8.0-10.5 N CA) [id number] 04:26:00 Test Item Value Reference Range Interpretation Comments PHOSPHOROUS (test code = PHOS) 3.2 MG/DL 2.5-4.9 N [id number] 04:26:00 Test Item Value Reference Range Interpretation Comments MAGNESIUM (test code = MAG) 1.64 mg/dL 1.80-2.40 L CALCIUM [id number] 04:26:00 Test Item Value Reference Range Interpretation Comments CALCIUM IONIZED (test code = ENID) 1.13 MMOL/L 1.09-1.30 N CBC W/AUTO [id number] 03:56:00 Test Item Value Reference Range Interpretation Comments WHITE BLOOD CELL (test code = 9.0 x10 3/uL 4.5-11.0 N WBC) RED BLOOD CELL (test code = 4.38 x10 6/uL 4.00-5.60 N RBC) HEMOGLOBIN (test code = HGB) 13.2 g/dL 12.5-16.9 N HEMATOCRIT (test code = HCT) 40.1 % 37.5-50.7 N MEAN CELL VOLUME (test code = 91.6 fL 81.0-99.0 MCV) MEAN CELL HGB (test code = MCH) 30.1 pg 27.0-33.0 N MEAN CELL HGB CONCETRATION 32.9 g/dL 33.0-37.0 L (test code = MCHC) RED CELL DISTRIBUTION WIDTH CV 13.5 % 11.5-14.5 N (test code = RDW) RED CELL DISTRIBUTION WIDTH SD 45.7 fL 37.0-54.0 N (test code = RDW-SD) PLATELET COUNT (test code = 185 x10 3/uL 150-400 N PLT) MEAN PLATELET VOLUME (test code 10.9 fL 7.0-9.0 H = MPV) NEUTROPHIL % (test code = NT%) 68.0 % 56.0-77.0 N IMMATURE GRANULOCYTE % (test 0.2 % 0.0-2.0 N code = IG%) LYMPHOCYTE % (test code = LY%) 20.4 % 14.0-32.0 N MONOCYTE % (test code = MO%) 9.0 % 4.8-9.0 N EOSINOPHIL % (test code = EO%) 1.8 % 0.3-3.7 N BASOPHIL % (test code = BA%) 0.6 % 0.0-2.0 N NUCLEATED RBC % (test code = 0.0 % 0-0 N NRBC%) NEUTROPHIL # (test code = NT#) 6.13 x10 3/uL 2.0-7.6 N IMMATURE GRANULOCYTE # (test 0.02 x10 3/uL 0.00-0.03 N code = IG#) LYMPHOCYTE # (test code = LY#) 1.84 x10 3/uL 1.0-3.8 N MONOCYTE # (test code = MO#) 0.81 x10 3/uL 0.1-0.8 H EOSINOPHIL # (test code = EO#) 0.16 x10 3/uL 0.0-0.2 N BASOPHIL # (test code = BA#) 0.05 x10 3/uL 0.0-0.2 N NUCLEATED RBC # (test code = 0.00 x10 3/uL 0.0-0.1 N NRBC#) MANUAL DIFF REQUIRED (test code NO = MDIFF) GLUCOSE [id number] 20:07:00 Test Item Value Reference Range Interpretation Comments GLUCOSE BEDSIDE (test 170 MG/DL 70-110 H Perfor med by certified code = GLUBED) wet and 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 operator at [facility] GLUCOSE [id number] 17:20:00 Test Item Value Reference Range Interpretation Comments GLUCOSE BEDSIDE (test 150 MG/DL 70-110 H Perfor med by certified code = GLUBED) wet and 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 operator at [facility] GLUCOSE [id number] 13:14:00 Test Item Value Reference Range Interpretation Comments GLUCOSE BEDSIDE (test 171 MG/DL 70-110 H Perfor med by certified code = GLUBED) wet and 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 operator at [facility] GLUCOSE [id number] 11:43:00 Test Item Value Reference Range Interpretation Comments GLUCOSE BEDSIDE (test 210 MG/DL 70-110 H Perfor med by certified code = GLUBED) wet and 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 operator at [facility] BASIC METABOLIC [id number] 07:46:00 Test Item Value Reference Range Interpretation Comments SODIUM (test code = 140 mEq/L 134-147 N NA) POTASSIUM (test code 4.0 mEq/L 3.4-5.0 N = K) CHLORIDE (test code 104 mEq/L 100-108 N = CL) CARBON DIOXIDE (test 27 mEq/l 21-33 N code = CO2) ANION GAP (test code 13 0-20 N = GAP) GLUCOSE (test code = 185 mg/dL 70-110 H GLU) BLOOD UREA NITROGEN 18 mg/dL 7-18 N (test code = BUN) GLOMERULAR 67.1 80-90 L The Glomerular FILTRATION RATE Filtration R ate is a (test code = GFR) calculated parameterbased on serum Creatinine, pat ient age and sex. GFR va luesless than 60 mL/min/ 1.73 square meters a re indicative ofCh ronic Kidney Disease. Values less than 15 mL/min/1.73squa re meters indicate Kidney failure. The calculation forGFR is based on the CKD-EPI (2020) calculat ion. This formulais race indifferent and is the recommended for arti for GFRby the [facility] Foundati on for Adults.The GFR will not calculate if th e sex is unknown or if thepatient's ag e is <18 years. CREATININE (test 1.2 mg/dL 0.6-1.3 N code = CREAT) CALCIUM (test code = 9.1 mg/dL 8.0-10.5 N CA) [id number] 07:46:00 Test Item Value Reference Range Interpretation Comments PHOSPHOROUS (test code = PHOS) 2.7 MG/DL 2.5-4.9 N [id number] 07:46:00 Test Item Value Reference Range Interpretation Comments MAGNESIUM (test code = MAG) 1.65 mg/dL 1.80-2.40 L CALCIUM [id number] 07:46:00 Test Item Value Reference Range Interpretation Comments CALCIUM IONIZED (test code = ENID) 1.12 MMOL/L 1.09-1.30 N CBC W/AUTO [id number] 07:10:00 Test Item Value Reference Range Interpretation Comments WHITE BLOOD CELL (test code = 12.1 x10 3/uL 4.5-11.0 H WBC) RED BLOOD CELL (test code = 4.37 x10 6/uL 4.00-5.60 N RBC) HEMOGLOBIN (test code = HGB) 13.4 g/dL 12.5-16.9 N HEMATOCRIT (test code = HCT) 41.9 % 37.5-50.7 N MEAN CELL VOLUME (test code = 95.9 fL 81.0-99.0 MCV) MEAN CELL HGB (test code = MCH) 30.7 pg 27.0-33.0 N MEAN CELL HGB CONCETRATION 32.0 g/dL 33.0-37.0 L (test code = MCHC) RED CELL DISTRIBUTION WIDTH CV 13.4 % 11.5-14.5 N (test code = RDW) RED CELL DISTRIBUTION WIDTH SD 47.6 fL 37.0-54.0 N (test code = RDW-SD) PLATELET COUNT (test code = 203 x10 3/uL 150-400 N PLT) MEAN PLATELET VOLUME (test code 11.2 fL 7.0-9.0 H = MPV) NEUTROPHIL % (test code = NT%) 75.9 % 56.0-77.0 N IMMATURE GRANULOCYTE % (test 0.4 % 0.0-2.0 N code = IG%) LYMPHOCYTE % (test code = LY%) 16.4 % 14.0-32.0 N MONOCYTE % (test code = MO%) 6.0 % 4.8-9.0 N EOSINOPHIL % (test code = EO%) 0.8 % 0.3-3.7 N BASOPHIL % (test code = BA%) 0.5 % 0.0-2.0 N NUCLEATED RBC % (test code = 0.0 % 0-0 N NRBC%) NEUTROPHIL # (test code = NT#) 9.15 x10 3/uL 2.0-7.6 H IMMATURE GRANULOCYTE # (test 0.05 x10 3/uL 0.00-0.03 H code = IG#) LYMPHOCYTE # (test code = LY#) 1.98 x10 3/uL 1.0-3.8 N MONOCYTE # (test code = MO#) 0.73 x10 3/uL 0.1-0.8 N EOSINOPHIL # (test code = EO#) 0.10 x10 3/uL 0.0-0.2 N BASOPHIL # (test code = BA#) 0.06 x10 3/uL 0.0-0.2 N NUCLEATED RBC # (test code = 0.00 x10 3/uL 0.0-0.1 N NRBC#) MANUAL DIFF REQUIRED (test code NO = MDIFF) GLUCOSE [id number] 20:03:00 Test Item Value Reference Range Interpretation Comments GLUCOSE BEDSIDE (test 203 MG/DL 70-110 H Perfor med by certified code = GLUBED) wet and 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 operator at [facility] GLUCOSE [id number] 17:27:00 Test Item Value Reference Range Interpretation Comments GLUCOSE BEDSIDE (test 211 MG/DL 70-110 H Perfor med by certified code = GLUBED) wet and 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 operator at [facility] GLUCOSE [id number] 13:04:00 Test Item Value Reference Range Interpretation Comments GLUCOSE BEDSIDE (test 267 MG/DL 70-110 H Perfor med by certified code = GLUBED) wet and 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 operator at [facility] GLUCOSE [id number] 07:47:00 Test Item Value Reference Range Interpretation Comments GLUCOSE BEDSIDE (test 218 MG/DL 70-110 H Perfor med by certified code = GLUBED) wet and 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 operator at [facility] [id number] 06:30:00 Test Item Value Reference Range Interpretation Comments HGBA1C% (test code = HGBA1C%) 8.1 %A1C 4.8-6.0 H COMPREHENSIVE METABOLIC [id number] 06:23:00 Test Item Value Reference Range Interpretation Comments SODIUM (test code = 136 mEq/L 134-147 N NA) POTASSIUM (test code 4.6 mEq/L 3.4-5.0 N = K) CHLORIDE (test code 104 mEq/L 100-108 N = CL) CARBON DIOXIDE (test 24 mEq/l 21-33 N code = CO2) ANION GAP (test code 13 0-20 N = GAP) GLUCOSE (test code = 257 mg/dL 70-110 H GLU) BLOOD UREA NITROGEN 21 mg/dL 7-18 H (test code = BUN) GLOMERULAR 61.0 80-90 L The Glomerular FILTRATION RATE Filtration R ate is a (test code = GFR) calculated parameterbased on serum Creatinine, pat ient age and sex. GFR va luesless than 60 mL/min/ 1.73 square meters a re indicative ofCh ronic Kidney Disease. Values less than 15 mL/min/1.73squa re meters indicate Kidney failure. The calculation for GFR is based on the CK D-EPI (2020) calculat ion. This formulais race indifferent and is the recommended for arti for GFRby the [facility] Kidney Foundati on for Adults.The GFR will not calculate if th e sex is unknown or if thepatient's ag e is <18 years. CREATININE (test 1.3 mg/dL 0.6-1.3 N code = CREAT) TOTAL PROTEIN (test 5.7 g/dL 6.4-8.2 L code = PROT) ALBUMIN (test code = 3.30 g/dL 3.4-5.0 L ALB) CALCIUM (test code = 8.4 mg/dL 8.0-10.5 N CA) BILIRUBIN TOTAL 0.50 mg/dL 0.0-1.0 N (test code = BILT) SGOT/AST (test code 21 IUnit/L 15-37 N = AST) SGPT/ALT (test code 24 IUnit/L 30-65 L = ALT) ALKALINE PHOSPHATASE 28 IUnit/L 20-125 N TOTAL (test code = ALKP) [id number] 06:23:00 Test Item Value Reference Range Interpretation Comments PHOSPHOROUS (test code = PHOS) 3.3 MG/DL 2.5-4.9 N [id number] 06:23:00 Test Item Value Reference Range Interpretation Comments MAGNESIUM (test code = MAG) 1.63 mg/dL 1.80-2.40 L T4 [id number] 06:23:00 Test Item Value Reference Range Interpretation Comments T4 FREE (test code = T4F) 0.9 ng/dL 0.77-1.61 N THYROID STIMULATING [id number] 06:23:00 Test Item Value Reference Range Interpretation Comments THYROID STIMULATING 0.67 0.42-5.47 N Results in HORMONE (test code = TSH) mi lli-International Units/mL CALCIUM [id number] 06:23:00 Test Item Value Reference Range Interpretation Comments CALCIUM IONIZED (test code = ENID) 1.12 MMOL/L 1.09-1.30 N CBC W/AUTO [id number] 05:39:00 Test Item Value Reference Range Interpretation Comments WHITE BLOOD CELL (test code = 15.0 x10 3/uL 4.5-11.0 H WBC) RED BLOOD CELL (test code = 4.07 x10 6/uL 4.00-5.60 N RBC) HEMOGLOBIN (test code = HGB) 12.2 g/dL 12.5-16.9 L HEMATOCRIT (test code = HCT) 37.8 % 37.5-50.7 N MEAN CELL VOLUME (test code = 92.9 fL 81.0-99.0 N MCV) MEAN CELL HGB (test code = 30.0 pg 27.0-33.0 N MCH) MEAN CELL HGB CONCETRATION 32.3 g/dL 33.0-37.0 L (test code = MCHC) RED CELL DISTRIBUTION WIDTH CV 13.2 % 11.5-14.5 N (test code = RDW) RED CELL DISTRIBUTION WIDTH SD 45.7 fL 37.0-54.0 N (test code = RDW-SD) PLATELET COUNT (test code = 191 x10 3/uL 150-400 N PLT) MEAN PLATELET VOLUME (test 11.1 fL 7.0-9.0 H code = MPV) NEUTROPHIL % (test code = NT%) 86.4 % 56.0-77.0 H IMMATURE GRANULOCYTE % (test 0.5 % 0.0-2.0 N code = IG%) LYMPHOCYTE % (test code = LY%) 7.0 % 14.0-32.0 L MONOCYTE % (test code = MO%) 5.9 % 4.8-9.0 N EOSINOPHIL % (test code = EO%) 0.0 % 0.3-3.7 L BASOPHIL % (test code = BA%) 0.2 % 0.0-2.0 N NUCLEATED RBC % (test code = 0.0 % 0-0 N NRBC%) NEUTROPHIL # (test code = NT#) 12.98 x10 3/uL 2.0-7.6 H IMMATURE GRANULOCYTE # (test 0.07 x10 3/uL 0.00-0.03 H code = IG#) LYMPHOCYTE # (test code = LY#) 1.05 x10 3/uL 1.0-3.8 N MONOCYTE # (test code = MO#) 0.88 x10 3/uL 0.1-0.8 H EOSINOPHIL # (test code = EO#) 0.00 x10 3/uL 0.0-0.2 N BASOPHIL # (test code = BA#) 0.03 x10 3/uL 0.0-0.2 N NUCLEATED RBC # (test code = 0.00 x10 3/uL 0.0-0.1 N NRBC#) MANUAL DIFF REQUIRED (test NO code = MDIFF) HGB [id number] 19:46:00 Test Item Value Reference Range Interpretation Comments HEMOGLOBIN (test code = HGB) 13.1 g/dL 12.5-16.9 N HEMATOCRIT (test code = HCT) 39.5 % 37.5-50.7 N GLUCOSE [id number] 19:46:00 Test Item Value Reference Range Interpretation Comments GLUCOSE BEDSIDE (test 254 MG/DL 70-110 H Perfor med by certified code = GLUBED) wet and 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 operator at [facility] GLUCOSE [id number] 17:56:00 Test Item Value Reference Range Interpretation Comments GLUCOSE BEDSIDE (test 228 MG/DL 70-110 H Perfor med by certified code = GLUBED) wet and 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 operator at [facility] BASIC METABOLIC [id number] 16:06:00 Test Item Value Reference Range Interpretation Comments SODIUM (test code = 138 mEq/L 134-147 N NA) POTASSIUM (test code 5.2 mEq/L 3.4-5.0 H = K) CHLORIDE (test code 108 mEq/L 100-108 N = CL) CARBON DIOXIDE (test 23 mEq/l 21-33 N code = CO2) ANION GAP (test code 12 0-20 N = GAP) GLUCOSE (test code = 175 mg/dL 70-110 H GLU) BLOOD UREA NITROGEN 18 mg/dL 7-18 N (test code = BUN) GLOMERULAR 55.8 80-90 L The Glomerular FILTRATION RATE Filtration R ate is a (test code = GFR) calculated parameterbased on serum Creatinine, pat ient age and sex. GFR va luesless than 60 mL/min/ 1.73 square meters a re indicative ofCh ronic Kidney Disease. Values less than 15 mL/min/1.73squa re meters indicate Kidney failure. The calculation forGFR is based on the CKD-EPI (2020) calculat ion. This formulais race indifferent and is the recommended for arti for GFRby the [facility] for Adults.The GFR will not calculate if th e sex is unknown or if thepatient's ag e is <18 years. CREATININE (test 1.4 mg/dL 0.6-1.3 H code = CREAT) CALCIUM (test code = 8.0 mg/dL 8.0-10.5 N CA) [id number] 16:06:00 Test Item Value Reference Range Interpretation Comments PHOSPHOROUS (test code = PHOS) 3.6 MG/DL 2.5-4.9 N [id number] 16:06:00 Test Item Value Reference Range Interpretation Comments MAGNESIUM (test code = MAG) 1.41 mg/dL 1.80-2.40 L CALCIUM [id number] 16:06:00 Test Item Value Reference Range Interpretation Comments CALCIUM IONIZED (test code = ENID) 1.06 MMOL/L 1.09-1.30 L BASIC METABOLIC [id number] 13:53:00 Test Item Value Reference Range Interpretation Comments SODIUM (test code = 139 mEq/L 134-147 N NA) POTASSIUM (test code 6.0 mEq/L 3.4-5.0 HH Critica l result called = K) to Stacey [facility] [place] 13 52 03/21/23Nurse r ead back result and tech confirmed it's correct? YES CHLORIDE (test code 109 mEq/L 100-108 H = CL) CARBON DIOXIDE (test 24 mEq/l 21-33 N code = CO2) ANION GAP (test code 12 0-20 N = GAP) GLUCOSE (test code = 162 mg/dL 70-110 H GLU) BLOOD UREA NITROGEN 18 mg/dL 7-18 N (test code = BUN) GLOMERULAR 55.8 80-90 L The Glomerular FILTRATION RATE Filtration R ate is a (test code = GFR) calculated parameterbased on serum Creatinine, pat ient age and sex. GFR va luesless than 60 mL/min/ 1.73 square meters a re indicative ofCh ronic Kidney Disease. Values less than 15 mL/min/1.73squa re meters indicate Kidney failure. The calculation forGFR is based on the CKD-EPI (2020) calculat ion. This formulais race indifferent and is the recommended for arti for GFRby the Nat nal Kidney Foundati on for Adults.The GFR will not calculate if th e sex is unknown or if thepatient's ag e is <18 years. CREATININE (test 1.4 mg/dL 0.6-1.3 H code = CREAT) CALCIUM (test code = 7.4 mg/dL 8.0-10.5 L CA) HGB [id number] 13:24:00 Test Item Value Reference Range Interpretation Comments HEMOGLOBIN (test code = HGB) 12.4 g/dL 12.5-16.9 L HEMATOCRIT (test code = HCT) 38.7 % 37.5-50.7 N POC ARTERIAL BLOOD [id number] 10:24:00 Test Item Value Reference Range Interpretation Comments POC ARTERIAL BLOOD GAS PH (test 7.246 7.35-7.45 LL code = POCPHA) POC ARTERIAL BLOOD GAS PCO2 (test 57.3 mmHg 35.0-45 HH code = [id number]) POC TCO2 ARTERIAL (test code = 26.7 POCTCO2) POC ARTERIAL BLOOD GAS PO2 (test 138.8 mmHg 80-100.0 H code = DQEBV1S) POC HCO3 ARTERIAL (test code = 24.9 MMOL/L 22.0-26.0 N [id number]) POC BASE EXCESS (test code = -3.1 MMOL/L -4.0-4.0 N POCBEA) POC O2 SATURATION (test code = 98.6 % 90-100 N POCO2S) BASIC METABOLIC [id number] 10:24:00 Test Item Value Reference Range Interpretation Comments SODIUM (test code = NA/ABG) 139 mmol/L 134-147 N POTASSIUM (test code = K/ABG) 5.2 mmol/L 3.4-5.0 H CHLORIDE (test code = CL/ABG) 109 mmol/L 100-108 H CREATININE ABG (test code = 1.3 mg/dL 0.8-1.3 N CREAABG) POC IONIZED CALCIUM (test code = 1.21 MMOL/L 1.12-1.32 N POCCA) POC GLUCOSE (test code = POCGLU) 121 MG/DL 70-110 H HEMOGLOBIN [id number] 10:24:00 Test Item Value Reference Range Interpretation Comments HEMOGLOBIN ABG (test code = 12.1 G/DL 12.5-16.9 L HGB/ABG) [id number] 10:24:00 Test Item Value Reference Range Interpretation Comments HEMATOCRIT (test code = HCT/ABG) 36 % 37.5-50.7 L POC LACTIC [id number] 10:24:00 Test Item Value Reference Range Interpretation Comments POC LACTIC ACID (test code = 2.0 mmol/l 0.9-1.7 H POCLAC) [id number] 09:49:00 Test Item Value Reference Range Interpretation Comments ACT-ISTAT (test code 263 SEC 74-137 H Perform ed by certified = ACTI) 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 and 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 operator at [facility] BASIC METABOLIC [id number] 07:43:00 Test Item Value Reference Range Interpretation Comments SODIUM (test code = 139 mEq/L 134-147 N NA) POTASSIUM (test code 3.9 mEq/L 3.4-5.0 N = K) CHLORIDE (test code 107 mEq/L 100-108 N = CL) CARBON DIOXIDE (test 25 mEq/l 21-33 N code = CO2) ANION GAP (test code 11 0-20 N = GAP) GLUCOSE (test code = 135 mg/dL 70-110 H GLU) BLOOD UREA NITROGEN 16 mg/dL 7-18 N (test code = BUN) GLOMERULAR 61.0 80-90 L The Glomerular FILTRATION RATE Filtration R ate is a (test code = GFR) calculated parameterbased on serum Creatinine, pat ient age and sex. GFR va luesless than 60 mL/min/ 1.73 square meters a re indicative ofCh ronic Kidney Disease. Values less than 15 mL/min/1.73squa re meters indicate Kidney failure. The calculation forGFR is based on the CKD-EPI (2020) calculat ion. This formulais race indifferent and is the recommended for arti for GFRby the Nat[facility] n[facility] Kidney Foundati on for Adults.The GFR will not calculate if th e sex is unknown or if thepatient's ag e is <18 years. CREATININE (test 1.3 mg/dL 0.6-1.3 N code = CREAT) CALCIUM (test code = 8.8 mg/dL 8.0-10.5 N CA) PROTHROMBIN [id number] 07:39:00 Test Item Value Reference Range Interpretation Comments PROTHROMBIN TIME 12.4 SECONDS 9.3-12.9 N PATIENT (test code = PTP) INTERNATIONAL NORMAL 1.1 0.8-1.2 N TARGET INR BY RATIO (test code = INDICATIO N Indication INR) INR1. Prophylax is of venous thrombos is 2.0 - 3.0 (orthoped ic surgery), Proph ylaxis of venous throm bosis (other than hig h-risk surgery), Treat ment of Deep Vein Thrombosis/Pulm onary Embolism, Preve ntion of systemic emb olism - Tissue heart va lves, Acute Myocardia l Infarction (to prevent systemic emboli sm), Valvular heart disease, Atrial Fibrillation, Bileaflet mecha nical valve in aortic position.2. Mec hanical prosthetic valv es (high risk), 2. 5 - 3.5 Presence of Lup us Anticoagulant o r Antiphospholipi d Antibodies, Pre vention of systemic emb olism - Acute Myocardia l Infarction (to prevent recurrent infar ct). THROMBOPLASTIN TIME [id number] 07:39:00 Test Item Value Reference Range Interpretation Comments THROMBOPLASTIN TIME 33.7 Seconds 25.0-39.5 N Therape utic Range: PARTIAL (test code = 50.4 - 88.3 Seconds PTT) Effective 11/28/2018 CBC W/AUTO [id number] 07:34:00 Test Item Value Reference Range Interpretation Comments WHITE BLOOD CELL (test code = 7.2 x10 3/uL 4.5-11.0 N WBC) RED BLOOD CELL (test code = 4.25 x10 6/uL 4.00-5.60 N RBC) HEMOGLOBIN (test code = HGB) 12.7 g/dL 12.5-16.9 N HEMATOCRIT (test code = HCT) 38.5 % 37.5-50.7 N MEAN CELL VOLUME (test code = 90.6 fL 81.0-99.0 N MCV) MEAN CELL HGB (test code = MCH) 29.9 pg 27.0-33.0 N MEAN CELL HGB CONCETRATION 33.0 g/dL 33.0-37.0 N (test code = MCHC) RED CELL DISTRIBUTION WIDTH CV 13.3 % 11.5-14.5 N (test code = RDW) RED CELL DISTRIBUTION WIDTH SD 44.0 fL 37.0-54.0 N (test code = RDW-SD) PLATELET COUNT (test code = 206 x10 3/uL 150-400 N PLT) MEAN PLATELET VOLUME (test code 10.9 fL 7.0-9.0 H = MPV) NEUTROPHIL % (test code = NT%) 59.1 % 56.0-77.0 N IMMATURE GRANULOCYTE % (test 0.3 % 0.0-2.0 N code = IG%) LYMPHOCYTE % (test code = LY%) 25.4 % 14.0-32.0 N MONOCYTE % (test code = MO%) 9.5 % 4.8-9.0 H EOSINOPHIL % (test code = EO%) 4.6 % 0.3-3.7 H BASOPHIL % (test code = BA%) 1.1 % 0.0-2.0 N NUCLEATED RBC % (test code = 0.0 % 0-0 N NRBC%) NEUTROPHIL # (test code = NT#) 4.27 x10 3/uL 2.0-7.6 N IMMATURE GRANULOCYTE # (test 0.02 x10 3/uL 0.00-0.03 N code = IG#) LYMPHOCYTE # (test code = LY#) 1.84 x10 3/uL 1.0-3.8 N MONOCYTE # (test code = MO#) 0.69 x10 3/uL 0.1-0.8 N EOSINOPHIL # (test code = EO#) 0.33 x10 3/uL 0.0-0.2 H BASOPHIL # (test code = BA#) 0.08 x10 3/uL 0.0-0.2 N NUCLEATED RBC # (test code = 0.00 x10 3/uL 0.0-0.1 N NRBC#) MANUAL DIFF REQUIRED (test code NO = MDIFF) GLUCOSE [id number] 06:27:00 Test Item Value Reference Range Interpretation Comments GLUCOSE BEDSIDE (test 126 MG/DL 70-110 H Perfor med by certified code = GLUBED) wet and 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 operator at [facility] [id number] 09:06:00 Test Item Value Reference Range Interpretation Comments ACT-ISTAT (test code 311 SEC 74-137 H Perform ed by certified = ACTI) wet and 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 operator at [facility] CBC W/AUTO [id number] 08:00:00 Test Item Value Reference Range Interpretation Comments WHITE BLOOD CELL (test code = 6.9 x10 3/uL 4.5-11.0 N WBC) RED BLOOD CELL (test code = 4.31 x10 6/uL 4.00-5.60 N RBC) HEMOGLOBIN (test code = HGB) 13.2 g/dL 12.5-16.9 N HEMATOCRIT (test code = HCT) 39.5 % 37.5-50.7 N MEAN CELL VOLUME (test code = 91.6 fL 81.0-99.0 N MCV) MEAN CELL HGB (test code = MCH) 30.6 pg 27.0-33.0 N MEAN CELL HGB CONCETRATION 33.4 g/dL 33.0-37.0 N (test code = MCHC) RED CELL DISTRIBUTION WIDTH CV 13.2 % 11.5-14.5 N (test code = RDW) RED CELL DISTRIBUTION WIDTH SD 44.8 fL 37.0-54.0 N (test code = RDW-SD) PLATELET COUNT (test code = 197 x10 3/uL 150-400 N PLT) MEAN PLATELET VOLUME (test code 11.3 fL 7.0-9.0 H = MPV) NEUTROPHIL % (test code = NT%) 63.9 % 56.0-77.0 N IMMATURE GRANULOCYTE % (test 0.1 % 0.0-2.0 N code = IG%) LYMPHOCYTE % (test code = LY%) 23.6 % 14.0-32.0 N MONOCYTE % (test code = MO%) 8.2 % 4.8-9.0 N EOSINOPHIL % (test code = EO%) 3.3 % 0.3-3.7 N BASOPHIL % (test code = BA%) 0.9 % 0.0-2.0 N NUCLEATED RBC % (test code = 0.0 % 0-0 N NRBC%) NEUTROPHIL # (test code = NT#) 4.42 x10 3/uL 2.0-7.6 N IMMATURE GRANULOCYTE # (test 0.01 x10 3/uL 0.00-0.03 N code = IG#) LYMPHOCYTE # (test code = LY#) 1.63 x10 3/uL 1.0-3.8 N MONOCYTE # (test code = MO#) 0.57 x10 3/uL 0.1-0.8 N EOSINOPHIL # (test code = EO#) 0.23 x10 3/uL 0.0-0.2 H BASOPHIL # (test code = BA#) 0.06 x10 3/uL 0.0-0.2 N NUCLEATED RBC # (test code = 0.00 x10 3/uL 0.0-0.1 N NRBC#) MANUAL DIFF REQUIRED (test code NO = MDIFF) BASIC METABOLIC [id number] 07:48:00 Test Item Value Reference Range Interpretation Comments SODIUM (test code = 140 mEq/L 134-147 N NA) POTASSIUM (test code 4.0 mEq/L 3.4-5.0 N = K) CHLORIDE (test code 105 mEq/L 100-108 N = CL) CARBON DIOXIDE (test 26 mEq/l 21-33 N code = CO2) ANION GAP (test code 13 0-20 N = GAP) GLUCOSE (test code = 145 mg/dL 70-110 H GLU) BLOOD UREA NITROGEN 13 mg/dL 7-18 N (test code = BUN) GLOMERULAR 67.1 80-90 L The Glomerular FILTRATION RATE Filtration R ate is a (test code = GFR) calculated parameterbased on serum Creatinine, pat ient age and sex. GFR va luesless than 60 mL/min/ 1.73 square meters a re indicative ofCh ronic Kidney Disease. Values less than 15 mL/min/1.73squa re meters indicate Kidney failure. The calculation forGFR is based on the CKD-EPI (2020) calculat ion. This formulais race indifferent and is the recommended for arti for GFRby the [facility] Found[facility] on for Adults.The GFR will not calculate if th e sex is unknown or if thepatient's ag e is <18 years. CREATININE (test 1.2 mg/dL 0.6-1.3 N code = CREAT) CALCIUM (test code = 8.6 mg/dL 8.0-10.5 N CA) PROTHROMBIN [id number] 07:34:00 Test Item Value Reference Range Interpretation Comments PROTHROMBIN TIME 13.2 SECONDS 9.3-12.9 H PATIENT (test code = PTP) INTERNATIONAL NORMAL 1.2 0.8-1.2 N TARGET INR BY RATIO (test code = INDICATIO N Indication INR) INR1. Prophylax is of venous thrombos is 2.0 - 3.0 (orthoped ic surgery), Proph ylaxis of venous throm bosis (other than hig h-risk surgery), Treat ment of Deep Vein Thrombosis/Pulm onary Embolism, Preve ntion of systemic emb olism - Tissue heart va lves, Acute Myocardia l Infarction (to prevent systemic emboli sm), Valvular heart disease, Atrial Fibrillation, Bileaflet mecha nical valve in aortic position.2. Mec hanical prosthetic valv es (high risk), 2. 5 - 3.5 Presence of Lup us Anticoagulant o r Antiphospholipi d Antibodies, Pre vention of systemic emb olism - Acute Myocardia l Infarction (to prevent recurrent infar ct). GLUCOSE [id number] 07:17:00 Test Item Value Reference Range Interpretation Comments GLUCOSE BEDSIDE (test 136 MG/DL 70-110 H Perfor med by certified code = GLUBED) wet and 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 operator at [facility] GLUCOSE [id number] 07:17:00 Test Item Value Reference Range Interpretation Comments GLUCOSE BEDSIDE (test 144 MG/DL 70-110 H Perfor med by certified code = GLUBED) wet and 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 operator at [facility] GLUCOSE [id number] 12:00:00 Test Item Value Reference Range Interpretation Comments GLUCOSE BEDSIDE (test 93 MG/DL 70-110 N Perfor med by certified code = GLUBED) wet and 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 operator at [facility] BASIC METABOLIC [id number] 10:14:00 Test Item Value Reference Range Interpretation Comments SODIUM (test code = 138 mEq/L 134-147 N NA) POTASSIUM (test code 4.0 mEq/L 3.4-5.0 N = K) CHLORIDE (test code 104 mEq/L 100-108 N = CL) CARBON DIOXIDE (test 25 mEq/l 21-33 N code = CO2) ANION GAP (test code 13 0-20 N = GAP) GLUCOSE (test code = 215 mg/dL 70-110 H GLU) BLOOD UREA NITROGEN 18 mg/dL 7-18 N (test code = BUN) GLOMERULAR 67.1 80-90 L The Glomerular FILTRATION RATE Filtration R ate is a (test code = GFR) calculated parameterbased on serum Creatinine, pat ient age and sex. GFR va luesless than 60 mL/min/ 1.73 square meters a re indicative ofCh ronic Kidney Disease. Values less than 15 mL/min/1.73squa re meters indicate Kidney failure. The calculation forGFR is based on the CKD-EPI (2020) calculat ion. This formulais race indifferent and is the recommended for arti for GFRby the [facility] on for Adults.The GFR will not calculate if th e sex is unknown or if thepatient's ag e is <18 years. CREATININE (test 1.2 mg/dL 0.6-1.3 N code = CREAT) CALCIUM (test code = 8.7 mg/dL 8.0-10.5 N CA) PROTHROMBIN [id number] 10:03:00 Test Item Value Reference Range Interpretation Comments PROTHROMBIN TIME 12.5 SECONDS 9.3-12.9 N PATIENT (test code = PTP) INTERNATIONAL NORMAL 1.1 0.8-1.2 N TARGE T INR BY RATIO (test code = INDICATIO N Indication INR) INR1. Prophylax is of venous thrombos is 2.0 - 3.0 (orthoped ic surgery), Proph ylaxis of venous throm bosis (other than hig h-risk surgery), Treat ment of Deep Vein Thrombosis/Pulm onary Embolism, Preve ntion of systemic emb olism - Tissue heart va lves, Acute Myocardia l Infarction (to prevent systemic emboli sm), Valvular heart disease, Atrial Fibrillation, Bileaflet mecha nical valve in aortic position.2. Mec hanical prosthetic valv es (high risk), 2. 5 - 3.5 Presence of Lup us Anticoagulant o r Antiphospholipi d Antibodies, Pre vention of systemic emb olism - Acute Myocardia l Infarction (to prevent recurrent infar ct). CBC W/AUTO [id number] 09:59:00 Test Item Value Reference Range Interpretation Comments WHITE BLOOD CELL (test code = 6.8 x10 3/uL 4.5-11.0 N WBC) RED BLOOD CELL (test code = 4.35 x10 6/uL 4.00-5.60 N RBC) HEMOGLOBIN (test code = HGB) 13.2 g/dL 12.5-16.9 N HEMATOCRIT (test code = HCT) 40.0 % 37.5-50.7 N MEAN CELL VOLUME (test code = 92.0 fL 81.0-99.0 N MCV) MEAN CELL HGB (test code = MCH) 30.3 pg 27.0-33.0 N MEAN CELL HGB CONCETRATION 33.0 g/dL 33.0-37.0 N (test code = MCHC) RED CELL DISTRIBUTION WIDTH CV 13.3 % 11.5-14.5 N (test code = RDW) RED CELL DISTRIBUTION WIDTH SD 45.3 fL 37.0-54.0 N (test code = RDW-SD) PLATELET COUNT (test code = 191 x10 3/uL 150-400 N PLT) MEAN PLATELET VOLUME (test code 10.9 fL 7.0-9.0 H = MPV) NEUTROPHIL % (test code = NT%) 61.8 % 56.0-77.0 N IMMATURE GRANULOCYTE % (test 0.1 % 0.0-2.0 N code = IG%) LYMPHOCYTE % (test code = LY%) 24.2 % 14.0-32.0 N MONOCYTE % (test code = MO%) 8.3 % 4.8-9.0 N EOSINOPHIL % (test code = EO%) 4.1 % 0.3-3.7 H BASOPHIL % (test code = BA%) 1.5 % 0.0-2.0 N NUCLEATED RBC % (test code = 0.0 % 0-0 N NRBC%) NEUTROPHIL # (test code = NT#) 4.18 x10 3/uL 2.0-7.6 N IMMATURE GRANULOCYTE # (test 0.01 x10 3/uL 0.00-0.03 N code = IG#) LYMPHOCYTE # (test code = LY#) 1.64 x10 3/uL 1.0-3.8 N MONOCYTE # (test code = MO#) 0.56 x10 3/uL 0.1-0.8 N EOSINOPHIL # (test code = EO#) 0.28 x10 3/uL 0.0-0.2 H BASOPHIL # (test code = BA#) 0.10 x10 3/uL 0.0-0.2 N NUCLEATED RBC # (test code = 0.00 x10 3/uL 0.0-0.1 N NRBC#) MANUAL DIFF REQUIRED (test code NO = MDIFF) - XR CHEST 2 [id number] 00:00:00 [facility] : 1955 Sex: M FAX: Dalton Sena MD [phone] [place]: St: PRE FAX: Melina Nelson Name: ALEXANDER WALKER [facility] [place] : 1955 Age/S: 67/M [address] [place] [address] Bl Unit #: [id number] Loc: [place] [address] Phys: Melina Nelson NP Acct: [id number] Dis Date: Status: PRE SDC PHONE #: [phone] Exam Date: 02/28/2023 1105 FAX #: [phone] Reason: PRE SX EXAMS: CPT CODE: [id number] XR CHEST 2 V [id number] PROCEDURE INFORMATION: Exam: XR Chest Exam date and time: 02/28/2023 10:16 AM Age: 67 years old Clinical indication: Pre-operative exam; Respiratory screening exam; Additional info: Pre SX TECHNIQUE: Imaging protocol: Radiologic exam of the chest. Views: 2 views. PA and Lateral COMPARISON: No relevant prior studies available. FINDINGS: Tubes, catheters and devices: None. Lungs: The lungs appear clear without pulmonary venous congestion. Pleural spaces: No pleural effusion. No pneumothorax. Heart/Mediastinum: Coronary arterial stent identified. Cardiac silhouette appears mildly enlarged. Vasculature: Mild atherosclerotic calcification demonstrated within the aorta. Bones/joints: Sternotomy wires, hardware is demonstrated. Mild generalized bony degenerative changes. Bony structures appear otherwise unremarkable. IMPRESSION: 1. Mild enlarged cardiac silhouette. 2. Degenerative and postsurgical changes are demonstrated, as described above. at 1124 Reported and signed by: Ashwin Dumont M.D. CC: Dalton Treviño MD; Aleksandra Nelson NP Technologist: RT [facility](Charlie) Trn[facility] Date/Time/By: 02/28/2023 (1123) : By: [email or web address] Orig Print D/T: S: 02/28/2023 (7561) PAGE 1 Signed ReportPOCT URINALYSIS W SPECIFIC [id number] 20:00:00 Test Item Value Reference Range Interpretation Comments POCT U SP GRAV (test code = 1.015 mg/dl 1.005-1.025 3255) POCT PH U (test code = 3254) 5 mg/dl 5-8 POCT U LEUK EST (test code = Negative Negative - Negative 3263) POCT U NIT (test code = 3262) Negative Negative - Negative POCT U PROT (test code = Positive Negative - Negative 3259) POCT U GLU (test code = 3256) negative Negative - Negative POCT U KETONE (test code = negative Negative - Negative 3258) POCT U UROBILI (test code = negative 0.2-1 3260) POCT U BILI (test code = negative Negative - Negative 3261) POCT U BLD (test code = 3257) positive Negative - Negative POCT U COLOR (test code = dark yellow 3266) POCT U APPEAR (test code = hazy 3267) Lab Interpretation (test code Abnormal = 79399-9) [facility] URINALYSIS W SPECIFIC [id number] 20:00:00 Test Item Value Reference Range Interpretation Comments POCT U SP GRAV (test code = 1.015 mg/dl 1.005-1.025 3255) POCT PH U (test code = 3254) 5 mg/dl 5-8 POCT U LEUK EST (test code = Negative Negative - Negative 3263) POCT U NIT (test code = 3262) Negative Negative - Negative POCT U PROT (test code = Positive Negative - Negative 3259) POCT U GLU (test code = 3256) negative Negative - Negative POCT U KETONE (test code = negative Negative - Negative 3258) POCT U UROBILI (test code = negative 0.2-1 3260) POCT U BILI (test code = negative Negative - Negative 3261) POCT U BLD (test code = 3257) positive Negative - Negative POCT U COLOR (test code = dark yellow 3266) POCT U APPEAR (test code = hazy 3267) Lab Interpretation (test code Abnormal = 35058-1) [facility] URINALYSIS W SPECIFIC [id number] 20:00:00 Test Item Value Reference Range Interpretation Comments POCT U SP GRAV (test code = 1.015 mg/dl 1.005-1.025 3255) POCT PH U (test code = 3254) 5 mg/dl 5-8 POCT U LEUK EST (test code = Negative Negative - Negative 3263) POCT U NIT (test code = 3262) Negative Negative - Negative POCT U PROT (test code = Positive Negative - Negative 3259) POCT U GLU (test code = 3256) negative Negative - Negative POCT U KETONE (test code = negative Negative - Negative 3258) POCT U UROBILI (test code = negative 0.2-1 3260) POCT U BILI (test code = negative Negative - Negative 3261) POCT U BLD (test code = 3257) positive Negative - Negative POCT U COLOR (test code = dark yellow 3266) POCT U APPEAR (test code = hazy 3267) Lab Interpretation (test code Abnormal = 54572-3) [facility] WITH [id number] 19:40:51 Test Item Value Reference Range Interpretation Comments WBC (test code = 8.98 See_Comment [Automated 4420-2) message] The sy stem which generated this result transmitted reference range : 4.20 - 10.70 10*3/?L. The reference range was not used to interpret this result as normal/abnormal . RBC (test code = 4.41 See_Comment [Automated 206-8) message] The sy stem which generated this result transmitted reference range : 4.26 - 5.52 10*6/?L. The reference range was not used to interpret this result as normal/abnormal . HGB (test code = 13.2 g/dL 12.2-16.4 718-7) HCT (test code = 40.8 % 38.4-49.3 4544-3) MCV (test code = 92.5 fL 81.7-95.6 787-2) MCH (test code = 29.9 pg 26.1-32.7 785-6) MCHC (test code = 32.4 g/dL 31.2-35.0 786-4) RDW-SD (test code = 41.6 fL 38.5-51.6 76731-3) RDW-CV (test code = 12.2 % 12.1-15.4 788-0) PLT (test code = 325 See_Comment [Automated 177-3) message] The sy stem which generated this result transmitted reference range : 150 - 328 10*3/ ?L. The reference r bryan was not used to interpret this result as normal/abnormal . MPV (test code = 10.1 fL 9.8-13.0 09176-7) NRBC/100 WBC (test 0.0 See_Comment [Automat ed code = 6828034812) message] The system which generated this result transmitted reference range : 0.0 - 10.0 /100 WBCs. The refer ence range was not u sed to interpret th is result as normal/abnormal . NRBC x10^3 (test code See_Comment [Auto mated = [id number]) message] The s ystem which generated this result transmitted reference range : 10*3/?L. The reference range was not used to interpret this result as normal/abnormal . GRAN MAT (NEUT) % 68.1 % (test code = 770-8) IMM GRAN % (test code 0.20 % = 7972980552) LYMPH % (test code = 17.8 % 736-9) MONO % (test code = 9.4 % 5905-5) EOS % (test code = 3.2 % 713-8) BASO % (test code = 1.3 % 706-2) GRAN MAT x10^3(ANC) 6.11 10*3/uL 1.99-6.95 (test code = 5996249611) IMM GRAN x10^3 (test 0.00-0.06 code = 9128157698) LYMPH x10^3 (test code 1.60 10*3/uL 1.09-3.23 = 731-0) MONO x10^3 (test code 0.84 10*3/uL 0.36-1.02 = 742-7) EOS x10^3 (test code = 0.29 10*3/uL 0.06-0.53 711-2) BASO x10^3 (test code 0.12 10*3/uL 0.01-0.09 H = 704-7) Lab Interpretation Abnormal (test code = 30528-6) [facility] WITH [id number] 19:40:51 Test Item Value Reference Range Interpretation Comments WBC (test code = 8.98 See_Comment [Automated 6690-2) message] The sy stem which generated this result transmitted reference range : 4.20 - 10.70 10*3/?L. The reference range was not used to interpret this result as normal/abnormal . RBC (test code = 4.41 See_Comment [Automated 789-8) message] The sy stem which generated this result transmitted reference range : 4.26 - 5.52 10*6/?L. The reference range was not used to interpret this result as normal/abnormal . HGB (test code = 13.2 g/dL 12.2-16.4 718-7) HCT (test code = 40.8 % 38.4-49.3 4544-3) MCV (test code = 92.5 fL 81.7-95.6 787-2) MCH (test code = 29.9 pg 26.1-32.7 785-6) MCHC (test code = 32.4 g/dL 31.2-35.0 786-4) RDW-SD (test code = 41.6 fL 38.5-51.6 30250-4) RDW-CV (test code = 12.2 % 12.1-15.4 788-0) PLT (test code = 325 See_Comment [Automated 777-3) message] The sy stem which generated this result transmitted reference range : 150 - 328 10*3/ ?L. The reference r bryan was not used to interpret this result as normal/abnormal . MPV (test code = 10.1 fL 9.8-13.0 71236-4) NRBC/100 WBC (test 0.0 See_Comment [Automat ed code = 9043675931) message] The system which generated this result transmitted reference range : 0.0 - 10.0 /100 WBCs. The refer ence range was not u sed to interpret th is result as normal/abnormal . NRBC x10^3 (test code See_Comment [Auto mated = 2767657153) message] The s ystem which generated this result transmitted reference range : 10*3/?L. The reference range was not used to interpret this result as normal/abnormal . GRAN MAT (NEUT) % 68.1 % (test code = 770-8) IMM GRAN % (test code 0.20 % = 1142668539) LYMPH % (test code = 17.8 % 736-9) MONO % (test code = 9.4 % 5905-5) EOS % (test code = 3.2 % 713-8) BASO % (test code = 1.3 % 706-2) GRAN MAT x10^3(ANC) 6.11 10*3/uL 1.99-6.95 (test code = 7385987062) IMM GRAN x10^3 (test 0.00-0.06 code = 2824402896) LYMPH x10^3 (test code 1.60 10*3/uL 1.09-3.23 = 731-0) MONO x10^3 (test code 0.84 10*3/uL 0.36-1.02 = 742-7) EOS x10^3 (test code = 0.29 10*3/uL 0.06-0.53 711-2) BASO x10^3 (test code 0.12 10*3/uL 0.01-0.09 H = 704-7) Lab Interpretation Abnormal (test code = 99536-4) [facility] WITH [id number] 19:40:51 Test Item Value Reference Range Interpretation Comments WBC (test code = 8.98 See_Comment [Automated 6481-2) message] The sy stem which generated this result transmitted reference range : 4.20 - 10.70 10*3/?L. The reference range was not used to interpret this result as normal/abnormal . RBC (test code = 4.41 See_Comment [Automated 425-8) message] The sy stem which generated this result transmitted reference range : 4.26 - 5.52 10*6/?L. The reference range was not used to interpret this result as normal/abnormal . HGB (test code = 13.2 g/dL 12.2-16.4 718-7) HCT (test code = 40.8 % 38.4-49.3 4544-3) MCV (test code = 92.5 fL 81.7-95.6 787-2) MCH (test code = 29.9 pg 26.1-32.7 785-6) MCHC (test code = 32.4 g/dL 31.2-35.0 786-4) RDW-SD (test code = 41.6 fL 38.5-51.6 79961-4) RDW-CV (test code = 12.2 % 12.1-15.4 788-0) PLT (test code = 325 See_Comment [Automated 777-3) message] The sy stem which generated this result transmitted reference range : 150 - 328 10*3/ ?L. The reference r bryan was not used to interpret this result as normal/abnormal . MPV (test code = 10.1 fL 9.8-13.0 93541-4) NRBC/100 WBC (test 0.0 See_Comment [Automat ed code = 6942884408) message] The system which generated this result transmitted reference range : 0.0 - 10.0 /100 WBCs. The refer ence range was not u sed to interpret th is result as normal/abnormal . NRBC x10^3 (test code See_Comment [Auto mated = 4115800601) message] The s ystem which generated this result transmitted reference range : 10*3/?L. The reference range was not used to interpret this result as normal/abnormal . GRAN MAT (NEUT) % 68.1 % (test code = 770-8) IMM GRAN % (test code 0.20 % = 3382756174) LYMPH % (test code = 17.8 % 736-9) MONO % (test code = 9.4 % 5905-5) EOS % (test code = 3.2 % 713-8) BASO % (test code = 1.3 % 706-2) GRAN MAT x10^3(ANC) 6.11 10*3/uL 1.99-6.95 (test code = 1717449036) IMM GRAN x10^3 (test 0.00-0.06 code = 6488516531) LYMPH x10^3 (test code 1.60 10*3/uL 1.09-3.23 = 731-0) MONO x10^3 (test code 0.84 10*3/uL 0.36-1.02 = 742-7) EOS x10^3 (test code = 0.29 10*3/uL 0.06-0.53 711-2) BASO x10^3 (test code 0.12 10*3/uL 0.01-0.09 H = 704-7) Lab Interpretation Abnormal (test code = 14631-9) [facility] WITH [id number] 19:40:51 Test Item Value Reference Range Interpretation Comments WBC (test code = 8.98 See_Comment [Automated 6690-2) message] The sy stem which generated this result transmitted reference range : 4.20 - 10.70 10*3/?L. The reference range was not used to interpret this result as normal/abnormal . RBC (test code = 4.41 See_Comment [Automated 789-8) message] The sy stem which generated this result transmitted reference range : 4.26 - 5.52 10*6/?L. The reference range was not used to interpret this result as normal/abnormal . HGB (test code = 13.2 g/dL 12.2-16.4 718-7) HCT (test code = 40.8 % 38.4-49.3 4544-3) MCV (test code = 92.5 fL 81.7-95.6 787-2) MCH (test code = 29.9 pg 26.1-32.7 785-6) MCHC (test code = 32.4 g/dL 31.2-35.0 786-4) RDW-SD (test code = 41.6 fL 38.5-51.6 50586-3) RDW-CV (test code = 12.2 % 12.1-15.4 788-0) PLT (test code = 325 See_Comment [Automated 777-3) message] The sy stem which generated this result transmitted reference range : 150 - 328 10*3/ ?L. The reference r bryan was not used to interpret this result as normal/abnormal . MPV (test code = 10.1 fL 9.8-13.0 13727-3) NRBC/100 WBC (test 0.0 See_Comment [Automat ed code = 2457878173) message] The system which generated this result transmitted reference range : 0.0 - 10.0 /100 WBCs. The refer ence range was not u sed to interpret th is result as normal/abnormal . NRBC x10^3 (test code See_Comment [Auto mated = 5856230422) message] The s ystem which generated this result transmitted reference range : 10*3/?L. The reference range was not used to interpret this result as normal/abnormal . GRAN MAT (NEUT) % 68.1 % (test code = 770-8) IMM GRAN % (test code 0.20 % = 9875254452) LYMPH % (test code = 17.8 % 736-9) MONO % (test code = 9.4 % 5905-5) EOS % (test code = 3.2 % 713-8) BASO % (test code = 1.3 % 706-2) GRAN MAT x10^3(ANC) 6.11 10*3/uL 1.99-6.95 (test code = 4370239409) IMM GRAN x10^3 (test 0.00-0.06 code = 4230227359) LYMPH x10^3 (test code 1.60 10*3/uL 1.09-3.23 = 731-0) MONO x10^3 (test code 0.84 10*3/uL 0.36-1.02 = 742-7) EOS x10^3 (test code = 0.29 10*3/uL 0.06-0.53 711-2) BASO x10^3 (test code 0.12 10*3/uL 0.01-0.09 H = 704-7) Lab Interpretation Abnormal (test code = 51981-8) [facility] WITH [id number] 19:40:51 Test Item Value Reference Range Interpretation Comments WBC (test code = 8.98 See_Comment [Automated 0039-2) message] The sy stem which generated this result transmitted reference range : 4.20 - 10.70 10*3/?L. The reference range was not used to interpret this result as normal/abnormal . RBC (test code = 4.41 See_Comment [Automated 998-8) message] The sy stem which generated this result transmitted reference range : 4.26 - 5.52 10*6/?L. The reference range was not used to interpret this result as normal/abnormal . HGB (test code = 13.2 g/dL 12.2-16.4 718-7) HCT (test code = 40.8 % 38.4-49.3 4544-3) MCV (test code = 92.5 fL 81.7-95.6 787-2) MCH (test code = 29.9 pg 26.1-32.7 785-6) MCHC (test code = 32.4 g/dL 31.2-35.0 786-4) RDW-SD (test code = 41.6 fL 38.5-51.6 19186-2) RDW-CV (test code = 12.2 % 12.1-15.4 788-0) PLT (test code = 325 See_Comment [Automated 777-3) message] The sy stem which generated this result transmitted reference range : 150 - 328 10*3/ ?L. The reference r bryan was not used to interpret this result as normal/abnormal . MPV (test code = 10.1 fL 9.8-13.0 21225-9) NRBC/100 WBC (test 0.0 See_Comment [Automat ed code = 4962436748) message] The system which generated this result transmitted reference range : 0.0 - 10.0 /100 WBCs. The refer ence range was not u sed to interpret th is result as normal/abnormal . NRBC x10^3 (test code See_Comment [Auto mated = 4356775640) message] The s ystem which generated this result transmitted reference range : 10*3/?L. The reference range was not used to interpret this result as normal/abnormal . GRAN MAT (NEUT) % 68.1 % (test code = 770-8) IMM GRAN % (test code 0.20 % = 5211210848) LYMPH % (test code = 17.8 % 736-9) MONO % (test code = 9.4 % 5905-5) EOS % (test code = 3.2 % 713-8) BASO % (test code = 1.3 % 706-2) GRAN MAT x10^3(ANC) 6.11 10*3/uL 1.99-6.95 (test code = 1555056799) IMM GRAN x10^3 (test 0.00-0.06 code = [id number]) LYMPH x10^3 (test code 1.60 10*3/uL 1.09-3.23 = 731-0) MONO x10^3 (test code 0.84 10*3/uL 0.36-1.02 = 742-7) EOS x10^3 (test code = 0.29 10*3/uL 0.06-0.53 711-2) BASO x10^3 (test code 0.12 10*3/uL 0.01-0.09 H = 704-7) Lab Interpretation Abnormal (test code = 98255-3) [facility] [id number] 13:16:00Surgical Pathology Report Case: [id number] Authorizing Provider: Arthur Hudson, Collected: 05/29/2020 10:31 AM Ordering Location: [facility] Received: 05/29/2020 12:48 PM PERIOPERATIVE SERVICES Pathologist: Benito Winston MD Specimen: Plaque, RIGHT CAROTID ARTERY PLAQUE ARTERY, RIGHT CAROTID, ENDARTERECTOMY:CALCIFIC ATHEROSCLEROTIC PLAQUE Signing Pathologist Direct Phone Line: [phone] signed by Benito Winston MD on 06/09/2020 at 1:15 [id number]; [id number] diagnosis: stenosis of carotid artery, unspecified lateralityPlaqueA. [...] in A1 for decal. JG/plPerformedSHORT-LATENCY SPE, ALL [id number] 15:24:00[facility] : 1955 Sex: MINTRAOPERATIVE MONITORING REPORT Patient Name: Alexander Walker [facility] [place] Surgery Date: 05/29/20 Monitoring began at 0835 and ended at 1150 Surgeon: Guillermo Hudson Examining Neurologist: Mercedes WILLS Monitoring Technologist: JASON Suarez Procedure: Right Carotid Endarterectomy Stimulation Parameters: Ulnar nerves individually stimulated at the wrist Rate 4.7Hz, Intensity 30-35mA, Duration 0.3ms Posterior Tibial nerves individually stimulated at the ankle Rate 4.7Hz, [id number], Duration 0.3ms Filters 30- 500Hz, Notch Off Motor strip stimulated anterior to C3 and C4 with alternating polarities Intensity 150-700V, Train Rate 4-5, YAMILA 2-3ms Filters 30-2KHz, Notch Off Recording Parameters: C3 and C4, referenced to FPz Free-running EEG recorded with bipolar derivation, usingmodified International 10/20 placements: FP1-C3, C3-O1, FP1-T3, T3-O1, FP2-C4, C4-O2, FP2-T4, and T4-O2 Description: Intraoperative neurophysiological monitoring was performed using a combination of upper and lower extremity somatosensory evoked potentials and 8 channel free- running EEG. A real-time connection with the examining neurologist was established and maintained throughout the operative procedure by the monitoring technologist. Upper and lower extremity somatosensory evoked potentials were recorded at the cortical levels following median nerve stimulation at the wrist and PTN stimulation at ankles. Post-induction, pre-incision baseline recording responses to median nerve stimulation wereclear and reproducible with parameter values within normal limits bilaterally. At closing, free-running EEG remained symmetrical and at baseline frequencies with no focal changes noted to occur throughout the operative procedure. MD Mercedes POCT-GLUCOSE [id number] 11:06:00 Test Item Value Reference Range Interpretation Comments POC-GLUCOSE METER 267 mg/dL 70-110 H : TESTED A T [facility] 6720 (BEAKER) (test code = [place], 1538) [address]: Choir Accompanist/Techni jaden ID = [id number] for JORGE KRISHNA RAD, CHEST, 1 VIEW, NON [id number] 10:20:00Reason for exam:- >dyspneaShould this be performed at the bedside?->Yes [facility] 1955 Sex: MFINAL REPORT CLINICAL HISTORY: dyspnea TECHNIQUE: 1 view of the chest. COMPARISON: None IMPRESSION: There is left lower lung atelectasis. The right lung appears well-aerated. There is no significant pleural fluid. The cardiomediastinal silhouette is magnified by technique with sternotomywires. Signed: Alexis Rosenbaum Verified Date/Time: 05/30/2020 10:20:48 Reading Location: [facility] Radiology Reading Room HEMOGLOBIN [id number] 10:08:00 Test Item Value Reference Range Interpretation Comments HEMOGLOBIN A1C (NIKOLAY) (test code = 7.4 % 4.3-6.1 H 368) Choir Accompanist ID - ADMINPOCT-GLUCOSE [id number] 08:03:00 Test Item Value Reference Range Interpretation Comments POC-GLUCOSE METER 155 mg/dL 70-110 H : TESTED A T [facility] 6720 (BEAKER) (test code = [place], 153) [address]: Choir Accompanist/Techni jaden ID = [id number] for JORGE KRISHNA CBC W/PLT COUNT & AUTO [id number] 07:17:00 Test Item Value Reference Range Interpretation [...] (test code = 2801) TSH/FREE T4 IF [id number] 07:10:00 Test Item Value Reference Range Interpretation Comments THYROID STIMULATING HORMONE 0.888 uIU/mL 0.350-4.940 (BEAKER) (test code = 772) Choir Accompanist ID - EDASIBASIC METABOLIC [id number] 06:50:00 Test Item Value Reference Range Interpretation [...] S NOT APPLICABLE FOR DIALYSIS PATIEN TS. Choir Accompanist ID - PIAYA [id number] 06:50:00 Test Item Value Reference Range Interpretation Comments MAGNESIUM (BEAKER) (test code = 1.4 mg/dL 1.6-2.6 L 627) Choir Accompanist ID - PIAYA [id number] 06:50:00 Test Item Value Reference Range Interpretation Comments PHOSPHORUS (BEAKER) (test code = 3.2 mg/dL 2.3-4.7 604) Choir Accompanist ID - PIAYA LCALCIUM, [id number] 06:29:00 Test Item Value Reference Range Interpretation Comments CALCIUM IONIZED (BEAKER) (test 1.14 mmol/L 1.12-1.27 code = 698) PH, BLOOD (BEAKER) (test code = 7.32 1810) POCT-GLUCOSE [id number] 22:18:00 Test Item Value Reference Range Interpretation Comments POC-GLUCOSE METER 199 mg/dL 70-110 H : TESTED A T [facility] 6720 (BEAKER) (test code = [facility] [place], 1538) [address]: Choir Accompanist/Techni jaden ID = [id number] for DECLAN HUMPHRIES SE POCT-GLUCOSE [id number] 16:56:00 Test Item Value Reference Range Interpretation Comments POC-GLUCOSE METER 196 mg/dL 70-110 H : TESTED A T [facility] 6720 (BEAKER) (test code = [facility], 1538) [address]: Choir Accompanist/Techni jaden ID = [id number] for SALLY LI PLATELET AGGREGATION: FUNCTION [id number] 14:58:00 Test Item Value Reference Range Interpretation Comments [id number] Michael Teran MD (BEAKER) (test code = (electronic 2622) signature) PLATELET COUNT AGG 210 K/CU MM 150-450 (BEAKER) (test code = 2656) ADP (BEAKER) (test code 38 % 62-100 L = 4654) PLATELET RICH 278 k/cu mm 200-300 PLASMA(BEAKER) (test code = 2134) PLATELET FUNCTION SCREEN Decreased aggregation INTERPRETATION (BEAKER) with ADP which (test code = 3005) indicates platelet dysfunction that may be due to medication effect, uremia, or other platelet function disorders. Clinical correlation is required. Platelet Function Screen results may be falsely low with platelet counts<75,000/cu mm.Choir Accompanist ID- [id number] METABOLIC [id number] 13:00:00 Test Item Value Reference Range Interpretation [...] S NOT APPLICABLE FOR DIALYSIS PATIEN TS. Choir Accompanist ID - AJAY MPOCT-GLUCOSE [id number] 12:42:00 Test Item Value Reference Range Interpretation Comments POC-GLUCOSE METER 199 mg/dL 70-110 H : TESTED A T [facility] 6720 (BEAKER) (test code = [place], 1538) [address]: Choir Accompanist/Techni jaden ID = [id number] for CLARISSE TAPIA CBC (HEMOGRAM ONLY)2020-05-29 12:38:00 [...] WBC 0-0 (BEAKER) (test code = 413) SODIUM NA-STAT [id number] 10:20:00 Test Item Value Reference Range Interpretation Comments SODIUM (BEAKER) (test code = 381) 137 meq/L 136-145 POTASSIUM-STAT [id number] 10:20:00 Test Item Value Reference Range Interpretation Comments POTASSIUM (BEAKER) (test code = 4.0 meq/L 3.6-5.5 379) BLOOD GAS, [id number] 10:20:00 Test Item Value Reference Range Interpretation [...] (BEAKER) (test code = 1819) 100.0 GLUCOSE-STAT [id number] 10:20:00 Test Item Value Reference Range Interpretation Comments GLUCOSE RANDOM (BEAKER) (test code 153 mg/dL 70-110 H = 652) HGB/HCT (H&H) - STAT [id number] 10:20:00 Test Item Value Reference Range Interpretation Comments HEMOGLOBIN (BEAKER) (test code = 12.6 GM/DL 13.0-16.8 L 410) HEMATOCRIT (BEAKER) (test code = 37.0 % 40.0-50.0 L 411) CALCIUM, [id number] 10:20:00 Test Item Value Reference Range Interpretation Comments CALCIUM IONIZED (BEAKER) (test 1.04 mmol/L 1.12-1.27 L code = 698) PH, BLOOD (BEAKER) (test code = 7.43 1810) POCT-GLUCOSE [id number] 06:03:00 Test Item Value Reference Range Interpretation Comments POC-GLUCOSE METER 210 mg/dL 70-110 H : TESTED A T [facility] 6720 (NIKOLAY) (test code [facility], = 1538) [address]: Choir Accompanist/Techni jaden ID = [id number] for JORD AN, LACRYSTAL SARS-COV2/RT-PCR ([facility])2020-05-28 15:06:00 Test Item Value Reference Range Interpretation Comments SARS-COV2/RT-PCR (test Negative Not Detected, Negative, code = 5599594) See external report for linked test SARS-COV-2 PERFORMING LAB [facility] YORDY (test code = 3564678) Negative result for this test determines that [...] individuals suspected of COVID-19 by their healthcare provider.This test [...] justifying the authorization of the emergency use ofin vitro diagnostic tests for detection and/or diagnosis of COVID-19 is terminated under Section 564(b)(2) of the Act or the EUA is revoked under Section 564(g) of the Act.Fact Sheet for Healthcare Prov iders:https://www.[facility].[employer]/sites/default/files/product/documents/Fact_Sheet_HC _Gghafpvyw_Njlf_RRFW-SeY-4.pdfFact Sheet for Healthcare Patients:https://www.[facility].[employer]/sites/default/files/product/docume nts/Nbph_Ywpdk_Ksfvyqie_Bcfz_KYJX-YiK-7.pdfPerforming Laboratory:[facility], [place] [address]AVLJ-LCB6/RT-PCR ([facility])2020-05-21 16:46:00 Test Item Value Reference Range Interpretation Comments SARS-COV2/RT-PCR (test Negative Not Detected, Negative, code = 3102741) See external report for linked test SARS-COV-2 PERFORMING LAB [facility] YORDY (test code = 4000748) Negative result for this test determines that [...] individuals suspected of COVID-19 by their healthcare provider.This test [...] justifying the authorization of the emergency use ofin vitro diagnostic tests for detection and/or diagnosis of COVID-19 is terminated under Section 564(b)(2) of the Act or the EUA is revoked under Section 564(g) of the Act.Fact Sheet for Healthcare Prov iders:https://www.[employer]/sites/default/files/product/documents/Fact_Sheet_HC _Oehxcbtsi_Etla_VJWV-JmX-7.pdfFact Sheet for Healthcare Patients:https://www.[employer]/sites/default/files/product/docume nts/Wptw_Vdezg_Uxniymrv_Qdrg_LGAF-ZbT-5.pdfPerforming Laboratory:[place] [address], [place] [address]YUBLCBPG AGGREGATION: FUNCTION [id number] 14:18:00 Test Item Value Reference Range Interpretation Comments [id number] Michael Teran MD (BEAKER) (test code = [...] may be falsely low with platelet counts<75,000/cu mm.Choir Accompanist ID- [id number] METABOLIC [id number] 12:01:00 Test Item Value Reference Range Interpretation [...] S NOT APPLICABLE FOR DIALYSIS PATIEN TS. Choir Accompanist ID - MAURICIO CPROTHROMBIN [id number] 11:28:00 Test Item Value Reference Range Interpretation [...] is 2.5-3.5 for patients wiht mechanical heart valves.CBC W/PLT COUNT & AUTO [id number] 11:12:00 Test Item Value Reference Range Interpretation [...] PERCENT (BEAKER) (test code = 2801) POCT [id number] 19:05:00 Test Item Value Reference Range Interpretation Comments POCT Creatinine (test code = 1.4 mg/dL 0.6-1.3 H [id number]) Lab Interpretation (test code = Abnormal 29483-4) [facility]/[id number] 18:41:44 1.?No acute findings are seen in the abdomen and pelvis.2.?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 3.?Atherosclerotic disease with near complete occlusion of the rightsuperficial femoral artery. The distal extent of this is not in iwcyjpgo-qg-guow.4.?Early opacification of the left femoral and external [...] VESSELS: The abdominal aorta at the diaphragmatic hiatusmeasures 2.4 cm (17:22).Scattered atherosclerotic calcifications are seen. The celiac artery is patent. Conventional branching anatomy is seen. Nearcomplete occlusion of the SMA at the origin (17:34). A patent JASON isvisualized (17:49). A single patent left renal artery is seen. A singlerenal accessoryartery is are seen (17:37). The infrarenal abdominal aorta measures 1.7 cm in diameter (17:45) with noevidence of aneurysm formation or a mural thrombus. Atheroscleroticcalcific lesions are seen involving bilateral common iliac, external andinternal iliac arteries. Near complete occlusion of the rightsuperficial femoral artery, at theedge of the xxyvt-xp-hfux (17:110). Patent right deep femoral artery. There is early opacification of the left femoral and external iliac veinlikely due to a arteriovenous fistula best seen on 17:93 and 13:26. A 0.5cm pseudoaneurysm is suspected at the site. The visual ized left superficialand deep femoral arteries are patent. BONES AND SOFT TISSUES: No suspicious lytic or sclerotic bone lesions. 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 There is nonspecific subcutaneous fat stranding seen in theleft lower quadrant of the abdomen best seen on 21:91. [facility], Radiant Results Inft User - 05/04/2019 1:41 PM CDT* * * * * * ORIGINAL REPORT * * * * * * * *EXAM: CT ABDOMEN ANGIOGRAPHY OF THE AND PELVIS WITH AND WITHOUT CONTRASTHISTORY: 63-year-old male with suspected peripheral vascular disease.COMPARISON: None.DOSE: Total exam DLP 1504 mGy- cmTECHNIQUE AND FINDINGS: Contiguous axial imaging was performed [...] No lymphadenopathy is seen.GI TRACT: No dilation or wall thickening. Sigmoid diverticulosis with noevidence of diverticulitis.PELVIS/BLADDER: [...] is seen. A singlerenal accessory artery is areseen (17:37).The infrarenal abdominal aorta measures 1.7 cm in diameter (17:45) with noevidence of aneurysm formation or a mural thrombus. Atheroscleroticcalcific lesions are seen involving bilateral common iliac, external andinternal iliac arteries. Near complete occlusion of the right superficial femoral artery, at theedge of the ljqsg-fx-pzot (17:110). Patent right deep femoral artery. There [...] in theleft lower quadrant of the abdomen bestseen on 21:91.IMPRESSION1. No acute findings are seen in the abdomen and pelvis.2. 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 3. Atherosclerotic disease with near complete occlusion of the rightsuperficial femoral artery. The distal extent of this is not in rspnjyut-fn-aolc.4. 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 A 0.5 cm pseudoaneurysm is suspected at this site.[facility]
--- NOTE | 2023-07-01 09:51 | RAD REPORT ---
EXAM DESCRIPTION: Leslie Single View07/01/2023 9:12 am CLINICAL HISTORY: Cough COMPARISON: January 2023 FINDINGS: The lungs appear clear of acute infiltrate. The heart is normal size. Postsurgical change s involve chest IMPRESSION: No acute abnormalities displayed
[2023-07-01 10:09] LABS: SARS-CoV-2 Antigen Rapid Res Negative (Negative)
--- NOTE | 2023-07-01 10:26 | EDPHYS ---
Physician Documentation [facility] Name: Alexander Walker Age: 67 yrs Sex: Male : 1955 Arrival Date: 07/01/2023 Time: 08:27 Bed 15 Private MD: ED Physician Landon Bennett HPI: 07/01 08:30 This 67 yrs old Male presents to ER via Unassigned with complaints of Cough, jh7 Congestion, Weakness. 08:30 The patient or guardian reports cough, flu symptoms, myalgias. Onset: The jh7 symptoms/episode began/occurred 2 day(s) ago. Associated signs and symptoms: Pertinent positives: rhinorrhea, sore throat, body aches, Pertinent negatives: chest pain, diarrhea, fever. 67-year-old male presents to the ER complaining of cough, congestion, body aches, and malaise for the past 2 days. He has a history of diabetes, hypertension, and triple bypass. Denies chest pain, abdominal pain, shortness of breath, dizziness, or any other symptoms at this time.. Historical: - Allergies: 09:24 Ciprofloxacin; hb 09:24 Latex; hb - PMHx: 09:24 Diabetes - IDDM; GERD; Hypertension; neuropathy; Anxiety; Hyperlipidemia; hb - PSHx: 09:24 tesha rotator cuff sx; 3X bypass; right leg stent; right leg bypass; hb - Immunization history:: Adult Immunizations up to date, Client reports receiving the 2nd dose of the Covid vaccine, Flu vaccine is up to date. - Social history:: Smoking status: Patient denies any tobacco usage or history of. ROS: 08:30 Eyes: Negative for injury, pain, redness, and discharge, Neck: Negative for injury, jh7 pain, and swelling, Cardiovascular: Negative for chest pain, palpitations, and edema, Abdomen/GI: Negative for abdominal pain, nausea, vomiting, diarrhea, and constipation, Back: Negative for injury and pain, MS/Extremity: Negative for injury and deformity, Skin: Negative for injury, rash, and discoloration, Neuro: Negative for headache, weakness, numbness, tingling, and seizure, 08:30 Constitutional: Positive for body aches, malaise, Negative for fever, 08:30 ENT: Positive for rhinorrhea, sore throat, 08:30 Respiratory: Positive for cough, Negative for wheezing, 08:30 All other systems are negative, Exam: 08:30 Constitutional: This is a well developed, well nourished patient who is awake, alert, jh7 and in no acute distress. Head/Face: Normocephalic, atraumatic. Neck: Trachea midline, no thyromegaly or masses palpated, and no cervical lymphadenopathy. Supple, full range of motion without nuchal rigidity, or vertebral point tenderness. No Meningismus. Cardiovascular: Regular rate and rhythm with a normal S1 and S2. No gallops, murmurs, or rubs. Normal PMI, no JVD. No pulse deficits. Respiratory: Lungs have equal breath sounds bilaterally, clear to auscultation and percussion. No rales, rhonchi or wheezes noted. No increased work of breathing, no retractions or nasal flaring. Abdomen/GI: Soft, non-tender, with normal bowel sounds. No distension or tympany. No guarding or rebound. No evidence of tenderness throughout. Skin: Warm, dry with normal turgor. Normal color with no rashes, no lesions, and no evidence of cellulitis. MS/ Extremity: Pulses equal, no cyanosis. Neurovascular intact. Full, normal range of motion. Neuro: Awake and alert, GCS 15, oriented to person, place, time, and situation. Motor strength 5/5 in all extremities. Sensory grossly intact. Normal gait. 08:30 ENT: Nose: nasal drainage, and is seen coming from both nares, that is clear, Posterior pharynx: Uvula: normal, swelling, is not appreciated, erythema, is not appreciated, pooling of secretions, that are mild, Vital Signs: 08:29 BP 125 / 70; Pulse 69; Resp 18; Temp 98.3(O); Pulse Ox 97% on R/A; Weight 118.39 kg; hb Height 5 ft. 11 in. ; Pain 7/10; 10:25 BP 122 / 67; Pulse 65; Resp 17 S; Pulse Ox 96% on R/A; ha1 08:29 Body Mass Index 36.40 (118.39 kg, 180.34 cm) hb 08:29 Pain Scale: Adult hb MDM: 08:30 Patient medically screened. [facility] 10:23 Differential Diagnosis: Bronchitis Influenza Upper Respiratory Infection Viral Syndrome 7 Pneumonia. Data reviewed: vital signs, nurses notes, radiologic studies, plain films. Historians other than the Patient: Spouse/Significant Other: . Counseling: I had a detailed discussion with the patient and/or guardian regarding the historical points, exam findings, and any diagnostic results supporting the discharge/admit diagnosis, to return to the emergency department if symptoms worsen or persist or if there are any questions or concerns that arise at home. Special discussion: I discussed with the patient/guardian that the patient's current presentation does not indicate dosing of antibiotics. They should follow-up with their primary care provider and return if the symptoms persist or progress. 07/01 08:35 Order name: Flu; Complete Time: 10:21 [facility] 07/01 08:35 Order name: SARS RAPID; Complete Time: 10:10 [facility] 07/01 08:35 Order name: XRAY Chest (1 view); Complete Time: 09:53 [facility] Administered Medications: No medications were administered Disposition: 10:48 Co-signature as Attending Physician, Landon Bennett MD I reviewed the patient's care rn provided by the Advanced Practice Provider and agree with the diagnosis and treatment plan. Disposition Summary: 07/01/23 10:26 Discharge Ordered Notes: Location: Home [facility] Problem: new [facility] Symptoms: are unchanged [facility] Condition: Stable [facility] Diagnosis - Acute upper respiratory infection, unspecified [facility] Followup: [facility] - With: Private Physician - When: 2 - 3 days - Reason: Recheck today's complaints Discharge Instructions: - Discharge Summary Sheet [facility] - Upper Respiratory Infection, Adult [facility] - Viral Respiratory Infection [facility] Forms: - Medication Reconciliation Form [facility] - Thank You Letter [facility] - Antibiotic Education [facility] - Patient Portal Instructions [facility] - Leadership Thank You Letter [facility] Prescriptions: - albuterol sulfate 90 mcg/actuation Inhalation HFA Aerosol Inhaler - inhale 1 puff INHALATION route every 4 to 6 hours As needed; 1 Each; Refills: [facility] 0, Product Selection Permitted - Tessalon Perles 100 mg Oral Capsule - take 1 capsule ORAL route every 8 hours As needed; 15 capsule; Refills: 0, jh7 Product Selection Permitted Signatures: Dispatcher [employer] Landon Jackson MD MD rn Baxter, Heather, RN RN hb Hadash, Jennifer, FNP [employer] [facility] Corrections: (The following items were deleted from the chart) 08:38 08:30 67-year-old male presents to the ER complaining of cough, congestion, body aches, jh7 and malaise for the past 2 days. He has a history of diabetes, hypertension, and triple bypass.. jh7
--- NOTE | 2023-07-01 10:26 | ER ---
Nurse's Notes [facility] Name: Alexander Walker Age: 67 yrs Sex: Male : 1955 Arrival Date: 07/01/2023 Time: 08:27 Bed 15 Private MD: Diagnosis: Acute upper respiratory infection, unspecified Presentation: 07/01 08:29 Chief complaint: Headache, body aches, generalized weakness, malaise, cough, and sore hb throat x 2-3 days. Coronavirus screen: Client presents with at least one sign or symptom that may indicate coronavirus-19. Provider contacted for isolation considerations. Ebola Screen: No symptoms or risks identified at this time. Initial Sepsis Screen: Does the patient meet any 2 criteria? No. Patient's initial sepsis screen is negative. Does the patient have a suspected source of infection? No. Patient's initial sepsis screen is negative. Risk Assessment: Do you want to hurt yourself or someone else? Patient reports no desire to harm self or others. Onset of symptoms was June 28, 2023. 08:29 Method Of Arrival: Ambulatory hb 08:29 Acuity: REYN 4 hb Historical: - Allergies: 09:24 Ciprofloxacin; hb 09:24 Latex; hb - PMHx: 09:24 Diabetes - IDDM; GERD; Hypertension; neuropathy; Anxiety; Hyperlipidemia; hb - PSHx: 09:24 tesha rotator cuff sx; 3X bypass; right leg stent; right leg bypass; hb - Immunization history:: Adult Immunizations up to date, Client reports receiving the 2nd dose of the Covid vaccine, Flu vaccine is up to date. - Social history:: Smoking status: Patient denies any tobacco usage or history of. Screenin:25 [facility] ED Fall Risk Assessment (Adult) History of falling in the last 3 months, ha1 including since admission No falls in past 3 months (0 pts) Confusion or Disorientation No (0 pts) Intoxicated or Sedated No (0 pts) Impaired Gait No (0 pts) Mobility Assist Device Used No (0 pt) Altered Elimination No (0 pt) Score/Fall Risk Level 0 - 2 = Low Risk Oriented to surroundings, Maintained a safe environment, Educated pt \\T\\ family on fall prevention, incl call for assistance when getting out of bed. Abuse screen: Denies threats or abuse. Denies injuries from another. Nutritional screening: No deficits noted. On. Tuberculosis screening: No symptoms or risk factors identified. Assessment: 09:30 General: Appears in no apparent distress. comfortable, Behavior is calm, cooperative, nj1 appropriate for age. 09:30 Pain: Complains of pain in "all over". Neuro: Level of Consciousness is awake, alert, nj1 obeys commands, Oriented to person, place, time, situation. Neuro: Reports weakness generalized. Cardiovascular: Patient's skin is warm and dry. Respiratory: Airway is patent Respiratory effort is even, unlabored. 10:26 Reassessment: Patient and/or family updated on plan of care and expected duration. Pain ha1 level reassessed. Patient is alert, oriented x 3, equal unlabored respirations, skin warm/dry/pink. Vital Signs: 08:29 BP 125 / 70; Pulse 69; Resp 18; Temp 98.3(O); Pulse Ox 97% on R/A; Weight 118.39 kg; hb Height 5 ft. 11 in. ; Pain 7/10; 10:25 BP 122 / 67; Pulse 65; Resp 17 S; Pulse Ox 96% on R/A; ha1 08:29 Body Mass Index 36.40 (118.39 kg, 180.34 cm) hb 08:29 Pain Scale: Adult hb ED Course: 08:29 Patient arrived in ED. rg4 08:29 [facility] Sullivan FNP [facility] jh7 08:29 Landon Bennett MD is Attending Physician. jh7 09:13 XRAY Chest (1 view) In Process Unspecified. EDMS 09:14 Patient has correct armband on for positive identification. Bed in low position. Call ha1 light in reach. Side rails up X 1. Adult w/ patient. 09:24 Triage completed. hb 09:25 Arm band placed on. hb 09:35 Dorothy Bhatt, PK is Primary Nurse. nj1 09:46 SARS RAPID Sent. nj1 09:47 Flu Sent. nj1 10:36 No provider procedures requiring assistance completed. Patient did not have IV access ha1 during this emergency room visit. 10:37 Provided Education on: medication administration . ha1 Administered Medications: No medications were administered Medication: 10:37 VIS not applicable for this client. ha1 Outcome: 10:26 Discharge ordered by . jh7 10:36 Discharged to home ambulatory, with family, ha1 10:36 Condition: stable 10:36 Discharge instructions given to patient, family, Instructed on discharge instructions, follow up and referral plans. medication usage, Demonstrated understanding of instructions, follow-up care, medications, Prescriptions given X 2, 10:37 Patient left the ED. ha1 Signatures: Dispatcher [employer] EDMS Arabella Camara RN RN Josie Yin 4 Iqra Sullivan, MEDICATION AIDE MEDICATION AIDE 7 Fara Strickland RN RN 1 Dorothy Bhatt RN RN nj1
[2023-07-01 10:42] VITALS: TEMP 98.3
[2023-07-01 10:44] VITALS: BP 122/67; O2SAT 96
== END 2023-07-01 10:37 | disposition home or self-care (01) ==
LOC: ER 08:27
DX: J06.9 Acute upper respiratory infection, unspecified (principal); Z11.52 Encounter for screening for COVID-19; E11.9 Type 2 diabetes mellitus without complications; I10 Essential (primary) hypertension; Z95.1 Presence of aortocoronary bypass graft; Z88.1 Allergy status to other antibiotic agents; Z91.040 Latex allergy status
CPT/HCPCS: 36415; 71045; 87804; 87811; 99283

== ENCOUNTER 2023-08-15 12:30 | Observation (INO) | payer OTHER ==
[2023-08-15] MEDS ORDERED: NA CHLORIDE 0.9% 500 ML ONE (13:02)
[2023-08-15] MEDS ORDERED: FAMOTIDINE 20 MG/2 ML VIAL IV ONE (13:02)
[2023-08-15] MEDS ORDERED: NA CHLORIDE 0.9% 1,000 ML ONE (13:03)
[2023-08-15 13:16] LABS: Hematocrit 37.6 % (39.6-49.0); Lymphocytes % 14.9 % (15.3-44.8); MCV 88.8 fL (80-100); MPV 8.9 fL (7.6-11.3); Platelets 181 thou/uL (152-406); RBC Red Blood Cell Count 4.23 M/uL (4.33-5.43)
[2023-08-15 13:20] LABS: Protime INR 1.21
[2023-08-15 13:32] LABS: Albumin 3.2 g/dL (3.4-5.0); Bilirubin Direct 0.2 mg/dL (0-0.2); Bilirubin Indirect, Calculated 0.3 mg/dL (0.2-0.8); Bilirubin Total 0.5 mg/dL (0.2-1.0); Magnesium 1.8 mg/dL (1.6-2.4); Protein, Total 6.3 g/dL (6.4-8.2); Troponin High Sensitivity 12.4 pg/mL (<58.9)
--- NOTE | 2023-08-15 13:36 | RAD REPORT ---
EXAM DESCRIPTION: CT - Head C Spine Cap Russel Con - 08/15/2023 1:10 pm CLINICAL HISTORY: Confusion. Head, neck, chest and abdominal pain TECHNIQUE: Computed axial tomography of head, neck, chest, abdomen and pelvis obtained. IV and oral contrast not requested. Coronal and sagittal reconstruction performed. All CT scans are performed using dose optimization technique as appropriate and may include automated exposure control or mA/KV adjustment according to patient size. COMPARISON: 2019 CT head and C-spine FINDINGS: An intracranial bleed is not seen. The ventricles are normal in caliber. 3.2 centimeter arachnoid cyst right temporal fossa Fluid within the sinuses/mastoids is not seen. A cervical fracture is not seen. No dislocation is noted. Mild chronic anterior subluxation C4 on C5. Prominent spondylosis mid and distal cervical spine The evaluation of mediastinum, tereso, vessels, solid organs and bowel are limited secondary to the lac k of contrast administration. Lungs are clear. No mediastinal or hilar lymphadenopathy. Coronary arterial calcifications The liver, spleen, pancreas, adrenals kidneys grossly normal Diverticula stem from the colon without visualization of diverticulitis. 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 Calcification celiac artery results in a moderate stenosis IMPRESSION: No acute intracranial abnormality is seen. A cervical fracture is not visualized. If the patient continues to have symptoms to suggest intracran ial/spinal cord pathology MRI be recommended No acute abnormality displayed chest, abdomen/pelvis
[2023-08-15 13:45] LABS: SARS-CoV-2 Antigen Rapid Res Negative (Negative)
--- NOTE | 2023-08-15 13:49 | RAD REPORT ---
EXAM DESCRIPTION: Leslie Single View08/15/2023 1:19 pm CLINICAL HISTORY: Cough COMPARISON: June 2020. FINDINGS: The lungs appear clear of acute infiltrate. The heart is normal size. Postsurgical change s involve the chest IMPRESSION: No acute abnormalities displayed
--- NOTE | 2023-08-15 14:00 | EDPHYS ---
Physician Documentation [facility] Name: Alexander Walker Age: 67 yrs Sex: Male : 1955 Arrival Date: 08/15/2023 Time: 12:30 Bed 16 Private MD: ED Physician Holden Velez HPI: 08/15 13:49 This 67 yrs old Male presents to ER via EMS with complaints of Altered Mental josi Status. 13:49 The patient presents with confusion, trouble concentrating. Onset: The symptoms/episode josi began/occurred just prior to arrival, this morning. Possible causes: CVA or TIA, low blood sugar, sepsis. Associated signs and symptoms: Pertinent positives: diarrhea. Patient's baseline: Neuro: alert and fully oriented. The patient has not experienced similar symptoms in the past. Historical: - Allergies: 12:57 Ciprofloxacin; cm10 12:57 Latex; cm10 - PMHx: 12:57 Anxiety; Diabetes - IDDM; GERD; Hyperlipidemia; Hypertension; neuropathy; cm10 - PSHx: 12:57 3X bypass; tesha rotator cuff sx; right leg bypass; right leg stent; cm10 - Immunization history:: Adult Immunizations up to date. - Social history:: Smoking status: Patient/guardian denies using tobacco. ROS: 13:52 Constitutional: Negative for fever, chills, and weight loss, Eyes: Negative for injury, josi pain, redness, and discharge, ENT: Negative for injury, pain, and discharge, Neck: Negative for injury, pain, and swelling, Respiratory: Negative for shortness of breath, cough, wheezing, and pleuritic chest pain, Back: Negative for injury and pain, : Negative for injury, bleeding, discharge, and swelling, MS/Extremity: Negative for injury and deformity, Skin: Negative for injury, rash, and discoloration, Psych: Negative for depression, anxiety, suicide ideation, homicidal ideation, and hallucinations, Allergy/Immunology: Negative for hives, rash, and allergies, Endocrine: Negative for neck swelling, polydipsia, polyuria, polyphagia, and marked weight changes, Hematologic/Lymphatic: Negative for swollen nodes, abnormal bleeding, and unusual bruising, 13:52 Cardiovascular: Positive for palpitations, 13:52 Abdomen/GI: Positive for diarrhea, 13:52 Neuro: Positive for altered mental status, weakness, Exam: 13:52 Constitutional: This is a well developed, well nourished patient who is awake, alert, josi and in no acute distress. Head/Face: Normocephalic, atraumatic. Eyes: Pupils equal round and reactive to light, extra-ocular motions intact. Lids and lashes normal. Conjunctiva and sclera are non-icteric and not injected. Cornea within normal limits. Periorbital areas with no swelling, redness, or edema. ENT: Nares patent. No nasal discharge, no septal abnormalities noted. Tympanic membranes are normal and external auditory canals are clear. Oropharynx with no redness, swelling, or masses, exudates, or evidence of obstruction, uvula midline. Mucous membranes moist. Neck: Trachea midline, no thyromegaly or masses palpated, and no cervical lymphadenopathy. Supple, full range of motion without nuchal rigidity, or vertebral point tenderness. No Meningismus. Chest/axilla: Normal chest wall appearance and motion. Nontender with no deformity. No lesions are appreciated. Cardiovascular: Regular rate and rhythm with a normal S1 and S2. No gallops, murmurs, or rubs. Normal PMI, no JVD. No pulse deficits. Respiratory: Lungs have equal breath sounds bilaterally, clear to auscultation and percussion. No rales, rhonchi or wheezes noted. No increased work of breathing, no retractions or nasal flaring. Abdomen/GI: Soft, non-tender, with normal bowel sounds. No distension or tympany. No guarding or rebound. No evidence of tenderness throughout. Back: No spinal tenderness. No costovertebral tenderness. Full range of motion. Male : Normal genitalia with no discharge or lesions. Skin: Warm, dry with normal turgor. Normal color with no rashes, no lesions, and no evidence of cellulitis. MS/ Extremity: Pulses equal, no cyanosis. Neurovascular intact. Full, normal range of motion. Neuro: Awake and alert, GCS 15, oriented to person, place, time, and situation. Cranial nerves II-XII grossly intact. Motor strength 5/5 in all extremities. Sensory grossly intact. Cerebellar exam normal. Normal gait. Psych: Awake, alert, with orientation to person, place and time. Behavior, mood, and affect are within normal limits. 13:52 ECG was reviewed by the Attending Physician. Vital Signs: 12:54 BP 149 / 50; Pulse 74; Resp 18; Pulse Ox 99% on R/A; cm10 14:00 BP 180 / 101; Pulse 108; Resp 18; Pulse Ox 100% on R/A; ld1 15:00 BP 147 / 86; Pulse 105; Resp 20; Pulse Ox 100% on R/A; ld1 16:00 BP 106 / 80; Pulse 103; Resp 16; Pulse Ox 100% on R/A; ld1 16:15 BP 154 / 95; Pulse 103; Resp 15; Pulse Ox 100% on R/A; ld1 MDM: 12:39 Patient medically screened. josi 12:41 Patient medically screened. josi 13:55 Differential diagnosis: arrythmia, dehydration, Nonspecific abd pain, viral josi gastroenteritis, gastroenteritis. Differential Diagnosis altered mental status, flu. Differential Diagnosis: CVA, electrolyte abnormality, hypoglycemia, pneumonia, seizure, sepsis, TIA, volume depletion. Data reviewed: vital signs, nurses notes, EMS record, lab test result(s), EKG, radiologic studies, CT scan, plain films. Consideration of Admission/Observation Patient was admitted/placed on observation. Escalation of care including admission/observation considered. I considered the following discharge prescriptions or medication management in the emergency department Medications were administered in the Emergency Department. See MAR. Independent interpretation of the following test(s) in the Emergency Department EKG: See my EKG interpretation above. Test considered but Not performed: MRI: NO MRI BRAIN. Historians other than the Patient: Family Member: , DAUGHTER. Care significantly affected by the following chronic conditions: Diabetes, Hypertension, Obesity, HIGH LIPISD. Counseling: I had a detailed discussion with the patient and/or guardian regarding the historical points, exam findings, and any diagnostic results supporting the discharge/admit diagnosis, lab results, radiology results, the need for further work-up and treatment in the hospital. 08/15 12:41 Order name: Basic Metabolic Panel; Complete Time: 13:48 [facility] 08/15 12:41 Order name: CBC with Diff; Complete Time: 13:30 [facility] 08/15 12:41 Order name: LFT's; Complete Time: 13:48 [facility] 08/15 12:41 Order name: Magnesium; Complete Time: 13:48 [facility] 08/15 12:41 Order name: NT PRO-BNP; Complete Time: 13:48 [facility] 08/15 12:41 Order name: PT-INR; Complete Time: 13:30 [facility] 08/15 12:41 Order name: Troponin HS; Complete Time: 13:48 [facility] 08/15 12:41 Order name: Lipase; Complete Time: 13:48 [facility] 08/15 12:41 Order name: SARS RAPID; Complete Time: 15:01 [facility] 08/15 12:41 Order name: Flu; Complete Time: 13:48 [facility] 08/15 12:41 Order name: Urinalysis w/ reflexes [facility] 08/15 12:47 Order name: Fecal Leukocyte Stain [facility] 08/15 12:47 Order name: Stool Culture [facility] 08/15 14:37 Order name: Glucose, Ancillary Testing; Complete Time: 15:01 [facility] 08/15 14:50 Order name: C.difficile [facility] 08/15 16:32 Order name: Glucose, Ancillary Testing [facility] 08/15 17:37 Order name: Urinalysis w/ reflexes [facility] 08/15 20:58 Order name: Glucose, Ancillary Testing [facility] 08/15 12:41 Order name: XRAY Chest (1 view); Complete Time: 14:04 [facility] 08/15 12:46 Order name: CT Traumagram (Head C Spine CAP wo con); Complete Time: 13:48 [facility] 08/15 12:41 Order name: EKG; Complete Time: 12:42 [facility] 08/15 12:41 Order name: Cardiac monitoring; Complete Time: 13:00 [facility] 08/15 12:41 Order name: EKG - Nurse/Tech; Complete Time: 13:00 [facility] 08/15 12:41 Order name: IV Saline Lock; Complete Time: 13:01 [facility] 08/15 12:41 Order name: Labs collected and sent; Complete Time: 13:01 [facility] 08/15 12:41 Order name: O2 Per Protocol; Complete Time: 13:00 [facility] 08/15 12:41 Order name: O2 Sat Monitoring; Complete Time: 13:00 [facility] 08/15 13:49 Order name: PO challenge: JUICE; Complete Time: 14:03 [facility] 08/15 14:49 Order name: Misc. Order: Please feed diet/ sandwich; Complete Time: 14:55 la1 EC:52 Rhythm is irregularly irregular. QRS [place] is Normal. [place] interval is normal. QT interval josi is normal. No Q waves. T waves are Normal. No ST changes noted. Clinical impression: No evidence of ischemia. Interpreted by me. Reviewed by me. Administered Medications: 14:03 Drug: NS 0.9% IV 1000 ml IV at 125 ml/hr continuous Route: IV; Rate: 125 ml/hr; Site: ld1 left antecubital; 20:58 Follow up: Response: No adverse reaction; IV Status: Infusion continued upon admission; jw7 IV Intake: 750ml 14:03 Drug: NS 0.9% IV 500 ml IV at bolus once Route: IV; Rate: bolus; Site: left antecubital;ld1 20:57 Follow up: Response: No adverse reaction; IV Status: Completed infusion; IV Intake: jw7 500ml 14:03 Drug: Famotidine IVP 20 mg IVP once; dilute with 10 mL 0.9% NaCl; give over 2 minutes ld1 Route: IVP; Site: left antecubital; 20:57 Follow up: Response: No adverse reaction jw7 14:55 Drug: D10 in Water IVP 250 ml IVP once Route: IVP; Site: left antecubital; ld1 20:57 Follow up: Response: No adverse reaction jw7 Disposition Summary: 08/15/23 13:59 Hospitalization Ordered Notes: Hospitalization Status: Observation josi Provider: Mirza Zuniga cha Condition: Fair josi Problem: new josi Symptoms: have improved josi Bed/Room Type: Standard josi Location: Telemetry/MedSurg (Inpatient)(08/15/23 18:39) rv1 Room Assignment: [facility](08/15/23 18:39) rv1 Diagnosis - Altered mental status, unspecified josi - Hypoglycemia, unspecified josi - Cardiac arrhythmia, unspecified - BIGEMINY josi - Diarrhea, unspecified josi Forms: - Medication Reconciliation Form josi - SBAR form josi - Leadership Thank You Letter josi Signatures: Dispatcher [employer] EDMS Holden Velez MD MD cha Attema, Lee, TREE EXPERT-C TREE EXPERT-Cla1 Colette Malin Lauren, RN RN ld1 Carolann Lyles rv1 Pat Parks RN RN cm10 An Dorsey RN jw7 Corrections: (The following items were deleted from the chart) 14:48 14:41 Misc. Order ordered. la1 la1 15:45 13:59 Telemetry/MedSurg (observation) josi eb 15:45 13:59 josi eb 18:39 15:45 BR ER [facility] eb rv1 18:39 15:45 eb rv1
--- NOTE | 2023-08-15 14:00 | ER ---
Nurse's Notes [facility] Name: Alexander Walker Age: 67 yrs Sex: Male : 1955 Arrival Date: 08/15/2023 Time: 12:30 Bed 16 Private MD: Diagnosis: Altered mental status, unspecified;Hypoglycemia, unspecified;Cardiac arrhythmia, unspecified-BIGEMINY;Diarrhea, unspecified Presentation: 08/15 12:54 Chief complaint: EMS states: Called to patient's home for confusion and AMS. EMS cm10 reports that patients BGL was 60 and was given oral glucose and his blood sugar improved. EMS reports that patient's heart rate was ranging from 40-80 and was given Atropine 0.5mg. After atropine was administered, pts confusion improved. Coronavirus screen: Vaccine status: Patient reports receiving the 2nd dose of the covid vaccine. Client denies travel out of the [place] in the last 14 days. Ebola Screen: Patient denies travel to an Ebola-affected area in the 21 days before illness onset. No symptoms or risks identified at this time. Initial Sepsis Screen: Does the patient meet any 2 criteria? No. Patient's initial sepsis screen is negative. Does the patient have a suspected source of infection? No. Patient's initial sepsis screen is negative. Risk Assessment: Do you want to hurt yourself or someone else? Patient reports no desire to harm self or others. Onset of symptoms was August 15, 2023. Care prior to arrival: IV initiated. 20 GA, in the left antecubital area. 12:54 Method Of Arrival: EMS: [facility] cm10 12:54 Acuity: RENY 2 cm10 Triage Assessment: 12:58 General: Appears in no apparent distress. comfortable, Behavior is calm, cooperative. cm10 Pain: Denies pain. Neuro: No deficits noted. Level of Consciousness is awake, alert, obeys commands, Oriented to person, place, time, situation. Cardiovascular: No deficits noted. Patient's skin is warm and dry. Rhythm is irregular. Respiratory: No deficits noted. Airway is patent Respiratory effort is even, unlabored, Respiratory pattern is regular, symmetrical. GI: No deficits noted. No signs and/or symptoms were reported involving the gastrointestinal system. : No deficits noted. No signs and/or symptoms were reported regarding the genitourinary system. Derm: No deficits noted. No signs and/or symptoms reported regarding the dermatologic system. Skin is intact, Skin is pink, warm \T\ dry. Musculoskeletal: No deficits noted. Range of motion: intact in all extremities. Historical: - Allergies: 12:57 Ciprofloxacin; cm10 12:57 Latex; cm10 - PMHx: 12:57 Anxiety; Diabetes - IDDM; GERD; Hyperlipidemia; Hypertension; neuropathy; cm10 - PSHx: 12:57 3X bypass; tesha rotator cuff sx; right leg bypass; right leg stent; cm10 - Immunization history:: Adult Immunizations up to date. - Social history:: Smoking status: Patient/guardian denies using tobacco. Screenin:06 [facility] ED Fall Risk Assessment (Adult) History of falling in the last 3 months, ld1 including since admission No falls in past 3 months (0 pts). Abuse screen: Denies threats or abuse. Denies injuries from another. Nutritional screening: No deficits noted. Tuberculosis screening: No symptoms or risk factors identified. Assessment: 13:05 General: Appears in no apparent distress. comfortable, Behavior is calm, cooperative, ld1 appropriate for age. 13:06 Pain: Denies pain. Neuro: Level of Consciousness is awake, alert, obeys commands, ld1 Oriented to person, place, time, situation. Cardiovascular: Capillary refill < 3 seconds Patient's skin is warm and dry. Rhythm is irregular. Respiratory: Airway is patent Respiratory effort is even, unlabored. GI: Abdomen is round non-distended. : No signs and/or symptoms were reported regarding the genitourinary system. EENT: No signs and/or symptoms were reported regarding the EENT system. Derm: No signs and/or symptoms reported regarding the dermatologic system. Musculoskeletal: No signs and/or symptoms reported regarding the musculoskeletal system. 14:15 Reassessment: Patient appears in no apparent distress at this time. No changes from ld1 previously documented assessment. Patient and/or family updated on plan of care and expected duration. Pain level reassessed. Patient denies pain at this time. 15:30 Reassessment: Patient appears in no apparent distress at this time. No changes from ld1 previously documented assessment. Patient and/or family updated on plan of care and expected duration. Pain level reassessed. Patient denies pain at this time. 16:26 Reassessment: Patient appears in no apparent distress at this time. No changes from ld1 previously documented assessment. Patient and/or family updated on plan of care and expected duration. Pain level reassessed. Patient denies pain at this time. Vital Signs: 12:54 BP 149 / 50; Pulse 74; Resp 18; Pulse Ox 99% on R/A; cm10 14:00 BP 180 / 101; Pulse 108; Resp 18; Pulse Ox 100% on R/A; ld1 15:00 BP 147 / 86; Pulse 105; Resp 20; Pulse Ox 100% on R/A; ld1 16:00 BP 106 / 80; Pulse 103; Resp 16; Pulse Ox 100% on R/A; ld1 16:15 BP 154 / 95; Pulse 103; Resp 15; Pulse Ox 100% on R/A; ld1 ED Course: 12:39 Patient arrived in ED. josi 12:39 Holden Velez MD is Attending Physician. [facility] 12:57 Triage completed. cm10 12:58 Arm band placed on Patient placed in an exam room, on a stretcher, on eight section blower, cm10 on pulse oximetry. 13:00 Bhumika Martinez, PK is Primary Nurse. ld1 13:05 Flu Sent. ld1 13:05 SARS RAPID Sent. ld1 13:05 Maintain EMS IV. Dressing intact. Good blood return noted. Site clean \T\ dry. Gauge \T\ ld 1 site: 20G LAC. 13:06 Patient has correct armband on for positive identification. Placed in gown. Bed in low ld1 position. Call light in reach. Side rails up X2. accountant bookkeeper on. Pulse ox on. NIBP on. Door closed. Noise minimized. Warm blanket given. 13:06 No provider procedures requiring assistance completed. ld1 13:12 CT Traumagram (Head C Spine CAP wo con) In Process Unspecified. EDMS 13:21 XRAY Chest (1 view) In Process Unspecified. EDMS 13:58 Mirza Zuniga is Hospitalizing Provider. [facility] 20:57 Provided Education on: need for admit. jw7 20:57 Patient admitted, IV remains in place. jw7 Administered Medications: 14:03 Drug: NS 0.9% IV 1000 ml IV at 125 ml/hr continuous Route: IV; Rate: 125 ml/hr; Site: ld1 left antecubital; 20:58 Follow up: Response: No adverse reaction; IV Status: Infusion continued upon admission; jw7 IV Intake: 750ml 14:03 Drug: NS 0.9% IV 500 ml IV at bolus once Route: IV; Rate: bolus; Site: left antecubital;ld1 20:57 Follow up: Response: No adverse reaction; IV Status: Completed infusion; IV Intake: jw7 500ml 14:03 Drug: Famotidine IVP 20 mg IVP once; dilute with 10 mL 0.9% NaCl; give over 2 minutes ld1 Route: IVP; Site: left antecubital; 20:57 Follow up: Response: No adverse reaction jw7 14:55 Drug: D10 in Water IVP 250 ml IVP once Route: IVP; Site: left antecubital; ld1 20:57 Follow up: Response: No adverse reaction jw7 Medication: 20:55 VIS not applicable for this client. jw7 Intake: 20:57 IV: 500ml; Total: 500ml. jw7 20:58 IV: 750ml; Total: 1250ml. jw7 Outcome: 13:59 Decision to Hospitalize by Provider. josi 20:56 Admitted to Tele accompanied by tech, via wheelchair, room 409, with chart, Report jw7 called to PK Kay 20:56 Condition: stable 20:56 Instructed on the need for admit, Demonstrated understanding of instructions, 20:58 Patient left the ED. jw7 Signatures: Dispatcher [employer] Holden Rojas MD MD cha Sims, Lauren, RN RN ld1 An Dorsey RN RN jw7 Martinez, Clarissa, RN RN cm10
[2023-08-15] MEDS ORDERED: D10W 250 ML IV ONE (14:51)
--- NOTE | 2023-08-15 15:19 | P.HP ---
Certification for Inpatient Patient admitted to: Inpatient With expected LOS: >2 Midnights Patient will require the following post-hospital care: None Practitioner: I am a practitioner with admitting privileges, knowledge of patient current condition, hospital course, and medical plan of care. Services: Services provided to patient in accordance with Admission requirements found in Title 42 Section 412.3 of the Code of Federal Regulations Patient History Date of Service: 08/15/23 Reason for admission: Hyperglycemia, bigeminy History of Present Illness: 67-year-old male with history of PAD, CAD, insulin-dependent diabetes, hypertension, hyperlipidemia presents emergency department chief complaint of altered mental status. He is now awake, alert and oriented he reports that for the past 3 to 4 days he has been having diarrhea at home 3-4 episodes per day, he did have some dark stools the middle 2 days which were also potentially associated with Pepto-Bismol use but now stools are soft and brown/loose. Family at bedside reports an episode earlier today when he said he did not feel right they noticed that he was "sweaty" and ultimately EMS was called, upon EMS arrival patient's blood sugar was 60, he was given oral glucose. He was also reportedly bradycardic with heart rate between 40 and 70 and he was given 0.5 mg of atropine by EMS. During his stay in the emergency department patient became alert, oriented denies any chest pain, shortness of breath, palpitations or abdominal pain. His labs in the emergency department were significant for hemoglobin 12.6 medic at 37.6 glucose 69 urinalysis pending stool studies pending CT head/C- spine/chest abdomen pelvis was performed which was negative for acute findings although did mention superior mesenteric artery calcification resulting in high- grade stenosis, calcification of the celiac artery resulting in moderate stenosis. Patient again denies any abdominal pain and has not had any nausea or vomiting. On exam with no abdominal tenderness. During his stay in the ED he was noted to be in sinus rhythm with frequent PVCs in a bigeminy pattern as well. Electrolytes within normal limits. Patient to be admitted for hyperglycemia, PVCs/bigeminy. Allergies ciprofloxacin [From Cipro] Allergy (Verified 01/26/23 10:21) AMS ciprofloxacin HCl [From Cipro] Allergy (Verified 01/26/23 10:21) AMS Latex, Natural Rubber Allergy (Verified 01/26/23 10:21) Rash Home Medications: Aspirin [Aspirin EC 81 MG] 81 mg PO DAILY 12/29/15 Cetirizine HCl [Zyrtec*] 10 mg PO DAILY 12/29/15 Clopidogrel Bisulfate [Plavix*] 75 mg PO DAILY 12/29/15 Glyburide/Metformin HCl [Glucovance 5-500 mg Tablet] 2 each PO BID 12/29/15 Losartan Potassium [Cozaar] 100 mg PO DAILY 12/29/15 Multivit-Min/FA/Lycopen/Lutein [Centrum Silver Tablet] 1 each PO DAILY 12/29/15 Nebivolol HCl [Bystolic*] 10 mg PO DAILY AT SUPPER 12/29/15 Rosuvastatin [Crestor*] 10 mg PO BEDTIME 12/29/15 Dexlansoprazole [Dexilant] 60 mg PO DAILY 06/04/20 Dulaglutide [Trulicity] 1.5 mg SQ SEECOM 06/04/20 Duloxetine HCl 2 tab PO BEDTIME 06/04/20 Folic Acid/Vit B Complex and C [Folbee Plus Tablet] 1 tab PO DAILY 06/04/20 Hydrochlorothiazide 25 mg PO DAILY 06/04/20 Insulin Glargine,Hum.rec.anlog [Lantus] 35 unit SQ DAILY 06/04/20 Insulin Lispro [Humalog] 13 unit SQ TID 06/04/20 Cefdinir [Omnicef] 300 mg PO BID #14 capsule 06/06/20 - Past Medical/Surgical History Diabetic: Yes -: IDDM -: HPN -: Hyperlipidemia -: GERD -: Neuropathy -: Anxiety -: PAD -: CAD -: CABG -: Angioplasty -: Heart stent -: Carotid surgery -: Multiple vascular surgeries lower extremities Psychosocial/ Personal History: Lives at home with family - Family History Father -: Other (see notes) Notes: of heart attack Mother -: Stroke - Social History Smoking Status: Never smoker Alcohol use: Yes Caffeine use: Yes Place of Residence: Home Review of Systems 10-point ROS is otherwise unremarkable Gastrointestinal: Diarrhea Neurological: Confusion Physical Examination - Physical Exam General: Alert, In no apparent distress, Oriented x3, Obese HEENT: Atraumatic, PERRLA, Mucous membr. moist/pink, EOMI, Sclerae nonicteric Neck: Supple, 2+ carotid pulse no bruit, No LAD, Without JVD or thyroid abnormality Respiratory: Clear to auscultation bilaterally, Normal air movement Cardiovascular: Regular rate/rhythm, Normal S1 S2 Gastrointestinal: Normal bowel sounds, No tenderness Musculoskeletal: No tenderness Integumentary: No rashes Neurological: Normal speech, Normal strength at 5/5 x4 extr, Normal tone, Normal affect - Studies Laboratory Data (last 24 hrs) 08/15/23 08/15/23 08/15/23 12:58 12:58 12:58 WBC 6.70 Hgb 12.6 L Hct 37.6 L Plt Count 181 PT 13.2 H INR 1.21 Sodium 140 Potassium 4.0 BUN 16 Creatinine 1.18 Glucose 69 L Magnesium 1.8 Total Bilirubin 0.5 AST 16 ALT 22 Alkaline Phosphatase 32 L Lipase 41 Microbiology Data (last 24 hrs): 08/15/23 12:58 Nasopharnyx Influenza Type A Antigen Screen - Final 08/15/23 12:58 Nasopharnyx Influenza Type B Antigen Screen - Final Assessment and Plan - Plan Assessment: Diabetes mellitus type 2insulin-dependent with hyperglycemia Frequent PVCs/bigeminy History of PAD/CAD Diarrhea Hypertension Hyperlipidemia Plan: Diabetes mellitus type 2insulin-dependent with hyperglycemia Reports taking Lantus at night 55 units as well as Trulicity weekly and Humalog 33 units 3 times a day Take insulin last night, blood sugars low this morning, did eat breakfast but had not eaten lunch yet Hold long-acting insulin for now, give patient diet, sliding scale insulin ordered A1c in the morning Frequent PVCs/bigeminy History of PAD/CAD Monitor on telemetry, continue carvedilol 0.5 mg twice daily Echocardiogram ordered, cardiology consult in place Denies chest pain, will trend troponin as well Diarrhea Stool studies ordered, reports diarrhea seems to be improving Did have dark stools 2 days ago for 2 days, possibly associated with Pepto- Bismol use Stool soft/brown now Monitor H&H, follow stool studies Hypertension Hyperlipidemia Home medications continued DVT PPX: Lovenox Code status: Full Discharge Plan: Home Plan to discharge in: 48 Hours - Advance Directives Does patient have a Living Will: Yes Does patient have a Durable POA for Healthcare: Yes - Code Status/Comfort Care Code Status Assessed: Yes (Full code) Critical Care: No Time Spent Managing Pts Care (In Minutes): 70
[2023-08-15 15:31] LABS: Specific Gravity 1.006 (1.005-1.030); Urine Bacteria <20 /HPF (<20); Urine Bilirubin NEGATIVE (Negative); Urine Blood Negative (Negative); Urine Clarity Turbid (Clear); Urine Color Colorless (Yellow); Urine Glucose NEGATIVE (Negative); Urine Protein NEGATIVE (Negative); Urine RBC <5 /HPF (None Seen); Urine Urobilinogen Normal (Normal); Urine pH 5.5 (5.0-7.0)
[2023-08-15] MEDS: INSULIN REGULAR (HUMAN) 100 UNIT/ML SQ SCH ×2 (16:31→21:00)
[2023-08-15] MEDS ORDERED: SODIUM CHLORIDE 0.9% 10ML INJ IV PRN (16:31)
[2023-08-15] MEDS: NA CHLORIDE 0.9% 1,000 ML IV SCH (16:31)
[2023-08-15] MEDS ORDERED: ONDANSETRON 4 MG/2 ML VIAL IV PRN (16:31)
[2023-08-15 16:53] VITALS: BMI 36.9
[2023-08-15 17:37] LABS: Specific Gravity 1.015 (1.005-1.030); Urine Bilirubin NEGATIVE (Negative); Urine Blood Negative (Negative); Urine Clarity Clear (Clear); Urine Color Light-Yellow (Yellow); Urine Glucose NEGATIVE (Negative); Urine Protein NEGATIVE (Negative); Urine Urobilinogen Normal (Normal); Urine pH 5.5 (5.0-7.0)
[2023-08-15] MEDS ORDERED: ROSUVASTATIN 10 MG TAB PO SCH (21:00)
[2023-08-15] MEDS: carvediloL 12.5 MG TAB PO SCH (21:12)
[2023-08-15] MEDS: PANTOPRAZOLE 40 MG INJ IVP SCH (21:12)
[2023-08-16] MEDS: carvediloL 12.5 MG TAB PO SCH (05:18)
[2023-08-16] MEDS: NA CHLORIDE 0.9% 1,000 ML IV SCH (05:40)
[2023-08-16 07:19] LABS: Absolute Lymphocytes (CBC) 1.4 K/uL (0.7-4.9); Hematocrit 36.5 % (39.6-49.0); Lymphocytes % 22.5 % (15.3-44.8); MPV 9.4 fL (7.6-11.3); Platelets 152 thou/uL (152-406)
[2023-08-16] MEDS: INSULIN REGULAR (HUMAN) 100 UNIT/ML SQ SCH ×2 (07:30→11:30)
[2023-08-16 07:48] LABS: Magnesium 1.6 mg/dL (1.6-2.4); Thyroid Stimulating Hormone 3.08 uIU/mL (0.358-3.740); Troponin High Sensitivity 24.7 pg/mL (<58.9)
[2023-08-16] MEDS: PANTOPRAZOLE 40 MG INJ IVP SCH (08:39)
[2023-08-16] MEDS ORDERED: ENOXAPARIN 40 MG/0.4 ML SQ SCH (09:00)
[2023-08-16] MEDS ORDERED: LOSARTAN POTASSIUM 50 MG TABLET PO SCH (09:00)
[2023-08-16] MEDS ORDERED: MAGNESIUM SULFATE 1 gm IVPB 1 GM/100 ML BAG IV ONE (09:00)
[2023-08-16] MEDS ORDERED: ASPIRIN EC 81 MG TAB PO SCH (09:00)
[2023-08-16] MEDS ORDERED: CLOPIDOGREL 75 MG TABLET PO SCH (09:00)
--- NOTE | 2023-08-16 10:16 | P.PN ---
Date of Service: 08/16/23 Subjective: No acute events overnight No further episodes of diarrhea No further episodes of confusion ROS: 10 point ROS as noted above, otherwise negative Physical exam GEN: Alert, oriented, NAD HEENT: Normal conjunctiva, sclera anicteric CV: Irregular rhythm, no edema Pulm: Nonlabored respirations on room air ABD: Soft, nontender, nondistended MSK: No joint tenderness Integumentary: No rashes Neuro: Normal speech, normal affect Vitals reviewed Assessment: Diabetes mellitus type 2insulin-dependent with hyperglycemia Frequent PVCs/bigeminy History of PAD/CAD Diarrhea Hypertension Hyperlipidemia Plan: Diabetes mellitus type 2insulin-dependent with hyperglycemia Reports taking Lantus at night 55 units as well as Trulicity weekly and Humalog 33 units 3 times a day Took insulin night prior to admission, blood sugars low that morning, did eat breakfast but had not eaten lunch before episode of hypoglycemia Hold long-acting insulin for now, give patient diet, sliding scale insulin ordered A1c 6.9 Blood sugars in the 120s to 140s so far Frequent PVCs/bigeminy History of PAD/CAD Monitor on telemetry, continue carvedilol 12.5 mg twice daily Echocardiogram ordered, cardiology consult in place Denies chest pain, troponins trended negative Diarrhea Stool studies ordered, reports diarrhea seems to be improving Did have dark stools 2 days ago for 2 days, possibly associated with Pepto-B ismol use Stool soft/brown now H&H stable, no further bowel movement since hospitalization Hypertension Hyperlipidemia Home medications continued DVT PPX: Lovenox Code status: Full Dispo: 24 to 48 hours Time Spent Managing Pts Care (In Minutes): 35
[2023-08-16 11:05] VITALS: O2SAT 95
[2023-08-16 11:27] VITALS: BP 162/70; TEMP 97.8
--- NOTE | 2023-08-16 14:47 | P.DS ---
Admission Date: 08/15/23 Discharge Date: 08/16/23 Disposition: ROUTINE DISCHARGE Discharge Condition: GOOD Reason for Admission: Hyperglycemia, bigeminy Consultations: CardiologyDr. Treviño Brief History of Present Illness: 67-year-old male with history of PAD, CAD, insulin-dependent diabetes, hypertension, hyperlipidemia presents emergency department chief complaint of altered mental status. He is now awake, alert and oriented he reports that for the past 3 to 4 days he has been having diarrhea at home 3-4 episodes per day, he did have some dark stools the middle 2 days which were also potentially a ssociated with Pepto-Bismol use but now stools are soft and brown/loose. Family at bedside reports an episode earlier today when he said he did not feel right they noticed that he was "sweaty" and ultimately EMS was called, upon EMS arrival patient's blood sugar was 60, he was given oral glucose. He was also reportedly bradycardic with heart rate between 40 and 70 and he was given 0.5 mg of atropine by EMS. During his stay in the emergency department patient became alert, oriented denies any chest pain, shortness of breath, palpitations or abdominal pain. His labs in the emergency department were significant for hemoglobin 12.6 medic at 37.6 glucose 69 urinalysis pending stool studies pending CT head/C- spine/chest abdomen pelvis was performed which was negative for acute findings although did mention superior mesenteric artery calcification resulting in high- grade stenosis, calcification of the celiac artery resulting in moderate stenosis. Patient again denies any abdominal pain and has not had any nausea or vomiting. On exam with no abdominal tenderness. During his stay in the ED he was noted to be in sinus rhythm with frequent PVCs in a bigeminy pattern as well. Electrolytes within normal limits. Patient to be admitted for hyperglycemia, PVCs/bigeminy. Hospital Course: Assessment: Diabetes mellitus type 2insulin-dependent with hyperglycemia Frequent PVCs/bigeminy History of PAD/CAD Diarrhea Hypertension Hyperlipidemia Patient was admitted to the hospital for hypoglycemia, irregular heart rhyth mbigeminy. He had an episode of confusion at home associated with low blood sugar, his mental status improved along with his glucose levels. He reports poor oral intake over the course of the last 2 to 3 days as well as diarrhea. He has had no further diarrhea during his hospitalization, tolerating diet well. Blood sugars remained stable during hospitalization. Patient was seen by cardiology who recommends further evaluation as an outpatient. At discharge please decrease your nighttime long-acting insulin dose to 45 units for the next few days at least until tolerating full meals Continue other home medications as prescribed Please follow-up your primary care doctor and cardiologyDrFito Treviño in the next 1 to 2 weeks. Vital Signs/Physical Exam: Temp Pulse Resp BP Pulse Ox 97.8 F 68 17 162/70 H 95 08/16/23 11:19 08/16/23 11:19 08/16/23 11:19 08/16/23 11:19 08/16/23 11:19 General: Alert, In no apparent distress, Oriented x3 HEENT: Atraumatic, PERRLA, EOMI Neck: Supple, JVD not distended Respiratory: Clear to auscultation bilaterally, Normal air movement Cardiovascular: Regular rate/rhythm, Normal S1 S2 Gastrointestinal: Normal bowel sounds, No tenderness Musculoskeletal: No tenderness Integumentary: No rashes Neurological: Normal speech, Normal tone Laboratory Data at Discharge: WBC 6.00 thou/uL (4.3-10.9) 08/16/23 06:40 Hgb 12.3 g/dL (13.6-17.9) L 08/16/23 06:40 Hct 36.5 % (39.6-49.0) L 08/16/23 06:40 Plt Count 152 thou/uL (152-406) 08/16/23 06:40 PT 13.2 SECONDS (9.5-12.5) H 08/15/23 12:58 INR 1.21 08/15/23 12:58 Sodium 141 mEq/L (136-145) 08/16/23 06:40 Potassium 4.0 mEq/L (3.5-5.1) 08/16/23 06:40 BUN 14 mg/dL (7-18) 08/16/23 06:40 Creatinine 1.09 mg/dL (0.70-1.30) 08/16/23 06:40 Glucose 122 mg/dL (74-106) H 08/16/23 06:40 Magnesium 1.6 mg/dL (1.6-2.4) 08/16/23 06:40 Total Bilirubin 0.5 mg/dL (0.2-1.0) 08/15/23 12:58 AST 16 U/L (15-37) 08/15/23 12:58 ALT 22 U/L (16-61) 08/15/23 12:58 Alkaline Phosphatase 32 U/L (45-117) L 08/15/23 12:58 Lipase 41 U/L (13-75) 08/15/23 12:58 Home Medications: Aspirin [Aspirin EC 81 MG] 81 mg PO DAILY 12/29/15 Cetirizine HCl [Zyrtec*] 10 mg PO DAILY 12/29/15 Clopidogrel Bisulfate [Plavix*] 75 mg PO DAILY 12/29/15 Glyburide/Metformin HCl [Glucovance 5-500 mg Tablet] 2 each PO BID 12/29/15 Losartan Potassium [Cozaar] 100 mg PO DAILY 12/29/15 Multivit-Min/FA/Lycopen/Lutein [Centrum Silver Tablet] 1 each PO DAILY 12/29/15 Nebivolol HCl [Bystolic*] 10 mg PO DAILY AT SUPPER 12/29/15 Rosuvastatin [Crestor*] 10 mg PO BEDTIME 12/29/15 Dexlansoprazole [Dexilant] 60 mg PO DAILY 06/04/20 Dulaglutide [Trulicity] 1.5 mg SQ SEECOM 06/04/20 Duloxetine HCl 2 tab PO BEDTIME 06/04/20 Folic Acid/Vit B Complex and C [Folbee Plus Tablet] 1 tab PO DAILY 06/04/20 Hydrochlorothiazide 25 mg PO DAILY 06/04/20 Insulin Glargine,Hum.rec.anlog [Lantus] 35 unit SQ DAILY 06/04/20 Insulin Lispro [Humalog] 13 unit SQ TID 06/04/20 Cefdinir [Omnicef] 300 mg PO BID #14 capsule 06/06/20 Physician Discharge Instructions: Patient was admitted to the hospital for hypoglycemia, irregular heart rhythm bigeminy. He had an episode of confusion at home associated with low blood sugar, his mental status improved along with his glucose levels. He reports poor oral intake over the course of the last 2 to 3 days as well as diarrhea. He has had no further diarrhea during his hospitalization, tolerating diet well. Blood sugars remained stable during hospitalization. Patient was seen by cardiology who recommends further evaluation as an outpatient. At discharge please decrease your nighttime long-acting insulin dose to 45 units for the next few days at least until tolerating full meals Continue other home medications as prescribed Please follow-up your primary care doctor and cardiologyDrFito Treviño in the next 1 to 2 weeks. Diet: ADA Activity: Ad morgan Followup: Kirstin Castellano NP [Primary Care Provider] - Time spent managing pt's care (in minutes): 35
--- NOTE | 2023-08-17 07:03 | ECHO ---
HEIGHT: 5 ft 11 in WEIGHT: 265 lb 0 oz DATE OF STUDY: 08/16/[address]: Armand Muse NP 2-DIMENSIONAL: YES M.MODE: YES DOPPLER: YES COLOR FLOW: YES TDS: NO PORTABLE: YES DEFINITY: NO BUBBLE STUDY: NO DIAGNOSIS: BIGEMINY, CORONARY ARTERY DISEASE CARDIAC HISTORY: CATHERIZATION:YES SURGERY: NO PROSTHETIC VALVE: NO PACEMAKER: NO MEASUREMENTS (cm) DIASTOLIC (NORMALS) SYSTOLIC (NORMALS) IVSd 1.5 (0.6-1.2) LA Diam 3.6 (1.9-4.0) LVEF 50% LVIDd 6.1 (3.5-5.7) LVIDs 4.6 (2.0-3.5) %FS 25% LVPWd 1.4 (0.6-1.2) Ao Diam 2.8 (2.0-3.7) 2 DIMENSIONAL ASSESSMENT: RIGHT ATRIUM: NORMAL LEFT ATRIUM: NORMAL RIGHT VENTRICLE: NORMAL LEFT VENTRICLE: DILATED LEFT VENTRICLE TRICUSPID VALVE: MILD TRICUSPID REGURGITATION MITRAL VALVE: NORMAL PULMONIC VALVE: MILD PUMONARY REGURGITATION AORTIC VALVE: NORMAL PERICARDIAL EFFUSION: NONE AORTIC ROOT: NORMAL LEFT VENTRICULAR WALL MOTION: MILD GLOBAL HYPOKINESIS. DOPPLER/COLOR FLOW: SEE BELOW. COMMENTS: 1. LOW NORMAL LEFT VENTRICULAR EJECTION FRACTION IS 50%. 2. MILDLY DILATED LEFT VENTRICLE. 3. MILD TRICUSPID REGURGITATION. TECHNOLOGIST: Cindy ALFARO
== END 2023-08-16 16:30 | disposition home or self-care (01) ==
LOC: ER 12:30 → ERHOLD 14:53 → INTOOBSV 14:53 → 4TH 20:39
PROVIDERS: ADMIT Internal Medicine; ATTEND Hospitalist
DX: E11.649 Type 2 diabetes mellitus with hypoglycemia without coma (principal); E11.65 Type 2 diabetes mellitus with hyperglycemia; R00.8 Other abnormalities of heart beat; I49.3 Ventricular premature depolarization; R41.82 Altered mental status, unspecified; R19.7 Diarrhea, unspecified; I10 Essential (primary) hypertension; E78.5 Hyperlipidemia, unspecified; I25.10 Atherosclerotic heart disease of native coronary artery without angina pectoris; I73.9 Peripheral vascular disease, unspecified; Z79.4 Long term (current) use of insulin
CPT/HCPCS: 96361; 93005; 93306; 85025 ×2; 81001; 80048 ×2; 36415; 83735 ×2; 85610; 82947 ×6; 80076; 84443; 81003; 83036; 84484 ×3; 84439; 83690; 83880; 87804 ×2; 70450; 71250; 72125; 71045; 96374; 99285; 87811; J3475; C9113 ×2; J1650; J7040; J7030 ×3; G0378

== ENCOUNTER 2023-12-02 11:52 | Emergency (ER) | payer OTHER ==
[2023-12-02] MEDS ORDERED: HYDROCODONE/APAP 10/325 TAB ONE (12:38)
[2023-12-02] MEDS ORDERED: CYCLOBENZAPRINE 10 MG TAB ONE (12:39)
--- NOTE | 2023-12-02 13:01 | RAD REPORT ---
EXAM DESCRIPTION: CTSpine Lumbar Wo Con12/02/2023 12:43 pm CLINICAL HISTORY: Back pain and radiculopathy COMPARISON: None TECHNIQUE: Computed axial tomography lumbar spine was obtained with coronal and sagittal reconstruct ion. All CT scans are performed using dose optimization technique as appropriate and may include automated exposure control or mA/KV adjustment according to patient size. FINDINGS: No fracture seen No dislocation Slight anterior subluxation L4 and L5. A disc bulge is present at this level. Thecal sac 7.5 millimet ers. Facet hypertrophy is seen. Mild to moderate narrowing the right neural foramina. Vacuum phenomena at L5-S1. Moderate left posterolateral disc herniation is present. This in combinati on with facet hypertrophy result in marked narrowing of the left neural foramina. The disc extends in feriorly. Left anterolateral aspect of the thecal sac is narrowed. IMPRESSION: Negative for a lumbar fracture. Spondylosis L4-5 results in mild central spinal stenosis Moderate left posterolateral disc herniation L5-S1 Nonemergent MRI recommended for further evaluation
--- NOTE | 2023-12-02 14:14 | EDPHYS ---
Physician Documentation [facility] Name: Alexander Walker Age: 68 yrs Sex: Male : 1955 Arrival Date: 12/02/2023 Time: 11:52 Bed 12 Private MD: ED Physician Joseph Briggs HPI: 12/01 13:56 This 68 yrs old Male presents to ER via Wheelchair with complaints of Low Back rt Pain. 13:56 Patient presents to the ED with a low back pain for the past several days. Patient rt rates this to lifting heavy objects in the yard. Denies numbness, tingling, bowel, bladder incontinence. Denies other acute complaints, symptoms are moderate in severity, no other aggravating or alleviating factors.. Historical: - Allergies: 12:15 Ciprofloxacin; ap3 12:15 Latex; ap3 - PMHx: 12:15 Anxiety; Diabetes - IDDM; GERD; Hyperlipidemia; Hypertension; neuropathy; Congestive ap3 heart failure; - Immunization history:: Client reports receiving the 2nd dose of the Covid vaccine. - Infectious Disease History:: Denies. - Social history:: Smoking status: Patient denies any tobacco usage or history of. - Family history:: not pertinent. ROS: 13:56 Constitutional: Negative for fever, chills, and weight loss, Cardiovascular: Negative rt for chest pain, palpitations, and edema, Respiratory: Negative for shortness of breath, cough, wheezing, and pleuritic chest pain, Abdomen/GI: Negative for abdominal pain, nausea, vomiting, diarrhea, and constipation, Skin: Negative for injury, rash, and discoloration, Neuro: Negative for headache, weakness, numbness, tingling, and seizure, 13:56 Back: Positive for pain at rest, pain with movement, Exam: 13:56 Constitutional: This is a well developed, well nourished patient who is awake, alert, rt and in no acute distress. Head/Face: Normocephalic, atraumatic. Chest/axilla: Normal chest wall appearance and motion. Nontender with no deformity. No lesions are appreciated. Cardiovascular: Regular rate and rhythm with a normal S1 and S2. No gallops, murmurs, or rubs. Normal PMI, no JVD. No pulse deficits. Respiratory: Lungs have equal breath sounds bilaterally, clear to auscultation and percussion. No rales, rhonchi or wheezes noted. No increased work of breathing, no retractions or nasal flaring. Abdomen/GI: Soft, non-tender, with normal bowel sounds. No distension or tympany. No guarding or rebound. No evidence of tenderness throughout. Skin: Warm, dry with normal turgor. Normal color with no rashes, no lesions, and no evidence of cellulitis. MS/ Extremity: Pulses equal, no cyanosis. Neurovascular intact. Full, normal range of motion. 13:56 Back: Tenderness to the bilateral lower paraspinal region, no midline tenderness, no step-offs, Vital Signs: 12:12 BP 159 / 67; Pulse 56; Resp 17; Temp 98.5; Pulse Ox 98% ; Weight 122.47 kg; Pain 8/10; ap3 14:31 BP 147 / 71; Pulse 62; Resp 16; Pulse Ox 98% ; bp 12:12 Pain Scale: Adult ap3 MDM: 12:06 Patient medically screened. rt 14:39 Differential diagnosis: Disc disease, muscle spasm. Data reviewed: vital signs, nurses rt notes, radiologic studies. I considered the following discharge prescriptions or medication management in the emergency department Medications were administered in the Emergency Department. See MAR. Independent interpretation of the following test(s) in the Emergency Department CT Scan: My interpretation is No fracture seen on interpretation of CT scan images. Test considered but Not performed: Labs: Do not suspect vertebral osteomyelitis, spinal epidural abscess, labs or not indicated. Care significantly affected by the following chronic conditions: Diabetes, Hypertension. Counseling: I had a detailed discussion with the patient and/or guardian regarding the historical points, exam findings, and any diagnostic results supporting the discharge/admit diagnosis, radiology results, the need for outpatient follow up. Response to treatment: the patient's symptoms have mildly improved after treatment. 12/01 12:34 Order name: CT Lumbar Spine Wo Con; Complete Time: 13:11 rt Administered Medications: 12:54 Drug: [place] PO 10 mg-325 mg 1 tabs PO once {Note: RASS 0.} Route: PO; ll1 14:30 Follow up: Response: No adverse reaction bp 12:54 Drug: Cyclobenzaprine PO 10 mg PO once Route: PO; ll1 14:31 Follow up: Response: No adverse reaction bp 14:19 Drug: morphine IM 4 mg IM once Route: IM; Site: right deltoid; bp 14:31 Follow up: Response: No adverse reaction bp 14:19 Drug: Dexamethasone IM 10 mg IM once Route: IM; Site: right deltoid; bp 14:30 Follow up: Response: No adverse reaction bp Disposition Summary: 12/02/23 14:13 Discharge Ordered Notes: Location: Home rt Problem: new rt Symptoms: have improved rt Condition: Stable rt Diagnosis - Low back pain rt - Other intervertebral disc degeneration, lumbar region rt Followup: rt - With: Private Physician - When: 5 - 6 days - Reason: Discharge Instructions: - Discharge Summary Sheet rt - Acute Back Pain, Adult rt - Degenerative Disk Disease rt Forms: - Medication Reconciliation Form rt - Thank You Letter rt - Antibiotic Education rt - Prescription Opioid Use rt - Patient Portal Instructions rt - Leadership Thank You Letter rt Prescriptions: - Lidoderm 5 % Topical adhesive patch, medicated - apply 1 patch TOPICAL route daily leave on most painful area for up to 12 hrs; rt 5 patch; Refills: 0, Product Selection Permitted - acetaminophen-codeine 300-30 mg Oral tablet - take 1 tablet ORAL route every 6 hours as needed for pain; 15 tablet; Refills: rt 0, Product Selection Permitted - Cyclobenzaprine 10 mg Oral tablet - take 1 tablet ORAL route every 8 hours As needed; 18 tablet; Refills: 0, rt Product Selection Permitted Signatures: Dispatcher [employer] Karthikeyan Claire RN RN bp Prokisch, Amanda, RN RN ap3 Meghan Logan RN RN ll1 Joseph Briggs MD MD rt
--- NOTE | 2023-12-02 14:14 | ER ---
Nurse's Notes [facility] Name: Alexander Walker Age: 68 yrs Sex: Male : 1955 Arrival Date: 12/02/2023 Time: 11:52 Bed 12 Private MD: Diagnosis: Low back pain;Other intervertebral disc degeneration, lumbar region Presentation: 12/01 12:12 Chief complaint: Patient states: he was doing yard work the last few days, and started ap3 having low back pain yesterday that he rates to be a 8/10 on the pain scale. Coronavirus screen: At this time, the client does not indicate any symptoms associated with coronavirus-19. Ebola Screen: No symptoms or risks identified at this time. Initial Sepsis Screen: Does the patient meet any 2 criteria? No. Patient's initial sepsis screen is negative. Does the patient have a suspected source of infection? No. Patient's initial sepsis screen is negative. Risk Assessment: Do you want to hurt yourself or someone else? Patient reports no desire to harm self or others. Onset of symptoms was December 01, 2023. 12:12 Method Of Arrival: Wheelchair ap3 12:12 Acuity: RENY 3 ap3 Triage Assessment: 12:15 General: Appears in no apparent distress. Behavior is calm, cooperative, appropriate ap3 for age. Pain: Complains of pain in low back area Pain currently is 8 out of 10 on a pain scale. Neuro: Level of Consciousness is awake, alert, obeys commands, Oriented to person, place, time, situation. Cardiovascular: Patient's skin is warm and dry. Respiratory: Airway is patent Respiratory effort is even, unlabored, Respiratory pattern is regular, symmetrical. Musculoskeletal: Reports pain in low back area. Historical: - Allergies: 12:15 Ciprofloxacin; ap3 12:15 Latex; ap3 - PMHx: 12:15 Anxiety; Diabetes - IDDM; GERD; Hyperlipidemia; Hypertension; neuropathy; Congestive ap3 heart failure; - Immunization history:: Client reports receiving the 2nd dose of the Covid vaccine. - Infectious Disease History:: Denies. - Social history:: Smoking status: Patient denies any tobacco usage or history of. - Family history:: not pertinent. Screenin:16 Abuse screen: Denies threats or abuse. Nutritional screening: No deficits noted. ap3 Tuberculosis screening: No symptoms or risk factors identified. 14:31 [facility] ED Fall Risk Assessment (Adult) History of falling in the last 3 months, bp including since admission No falls in past 3 months (0 pts). Assessment: 12:54 Reassessment: No changes from previously documented assessment. Patient and/or family ll1 updated on plan of care and expected duration. Pain level reassessed. Patient is alert, oriented x 3, equal unlabored respirations, skin warm/dry/pink. Vital Signs: 12:12 BP 159 / 67; Pulse 56; Resp 17; Temp 98.5; Pulse Ox 98% ; Weight 122.47 kg; Pain 8/10; ap3 14:31 BP 147 / 71; Pulse 62; Resp 16; Pulse Ox 98% ; bp 12:12 Pain Scale: Adult ap3 ED Course: 11:53 Patient arrived in ED. rg4 11:59 Joseph Briggs MD is Attending Physician. rt 12:15 Triage completed. ap3 12:16 Arm band placed on right wrist. ap3 12:44 CT Lumbar Spine Wo Con In Process Unspecified. EDMS 14:00 Patient placed in an exam room, in a wheelchair. ll1 14:05 Karthikeyan Landis, RN is Primary Nurse. bp 14:31 Patient has correct armband on for positive identification. Provided Education on: N/A. bp 14:31 No provider procedures requiring assistance completed. Patient did not have IV access bp during this emergency room visit. Administered Medications: 12:54 Drug: [place] PO 10 mg-325 mg 1 tabs PO once {Note: RASS 0.} Route: PO; ll1 14:30 Follow up: Response: No adverse reaction bp 12:54 Drug: Cyclobenzaprine PO 10 mg PO once Route: PO; ll1 14:31 Follow up: Response: No adverse reaction bp 14:19 Drug: morphine IM 4 mg IM once Route: IM; Site: right deltoid; bp 14:31 Follow up: Response: No adverse reaction bp 14:19 Drug: Dexamethasone IM 10 mg IM once Route: IM; Site: right deltoid; bp 14:30 Follow up: Response: No adverse reaction bp Medication: 14:31 VIS not applicable for this client. bp Outcome: 14:13 Discharge ordered by . rt 14:31 Discharged to home via wheelchair, with family, bp 14:31 Condition: stable 14:31 Discharge instructions given to patient, Instructed on discharge instructions, follow up and referral plans. medication usage, Demonstrated understanding of instructions, follow-up care, medications, Prescriptions given X 3, 14:33 Patient left the ED. bp Signatures: Dispatcher [employer] Josie Sparks rg4 Karthikeyan Landis RN RN bp Emely Slaughter RN RN ap3 Meghan Logan RN RN ll1 Joseph Briggs MD MD rt
[2023-12-02] MEDS ORDERED: dexAMETHasone 10 MG/ML VIAL ONE (14:15)
[2023-12-02] MEDS ORDERED: MORPHINE 4 MG/ML SYR ONE (14:16)
[2023-12-02 15:01] VITALS: BP 147/71; TEMP 98.5; O2SAT 98
== END 2023-12-02 14:33 | disposition home or self-care (01) ==
LOC: ER 11:52
DX: M51.36 Other intervertebral disc degeneration, lumbar region (principal); Z88.1 Allergy status to other antibiotic agents; Z91.040 Latex allergy status
CPT/HCPCS: 72131; 96372; 99284; J1100

== ENCOUNTER 2024-02-05 10:37 | Emergency (ER) | payer OTHER ==
[2024-02-05 11:23] LABS: Absolute Basophils 0.1 K/uL (0-0.5); Absolute Eosinophils 0.1 K/uL (0-0.5); Absolute Lymphocytes (CBC) 1.5 K/uL (0.7-4.9); Absolute Monocytes 0.8 K/uL (0.1-1.3); Absolute Neutrophil 6.4 K/uL (1.8-8.0); Basophils % 0.8 % (0-1.3); Eosinophils % 1.2 % (0-4.4); Hematocrit 40.8 % (39.6-49.0); Hemoglobin 13.5 g/dL (13.6-17.9); MCHC 33.1 g/dL (32.0-36.0); MCV 93.7 fL (80-100); MPV 9.1 fL (7.6-11.3); Monocytes % 8.9 % (3.3-12.3); Neutrophils % 72.1 % (41.7-73.7); Platelets 187 thou/uL (152-406); RBC Red Blood Cell Count 4.35 M/uL (4.33-5.43); Red Cell Distribution Width 14.5 % (12.1-15.2)
[2024-02-05 11:26] LABS: Albumin 3.7 g/dL (3.4-5.0); Albumin/Globulin Ratio 1.2 (1.1-1.8); Anion Gap 6.3 mEq/L (5.0-15.0); Bilirubin Total 0.6 mg/dL (0.2-1.0); Globulin 3.2 g/dL (2.3-3.5); Potassium 4.3 mEq/L (3.5-5.1); Protein, Total 6.9 g/dL (6.4-8.2)
[2024-02-05 11:27] LABS: PT Prothrombin Time 11.8 SECONDS (9.4-12.5); PTT, Activated Partial Thromb 32.7 SECONDS (24.3-36.9); Protime INR 1.07
--- NOTE | 2024-02-05 11:37 | RAD REPORT ---
EXAM DESCRIPTION: CT - Head Brain Wo Cont - 02/05/2024 11:28 am CLINICAL HISTORY: Dizziness;Numbness COMPARISON: Head angio dated 11/24/2019; Sinus Wo Cont dated 11/28/2015 TECHNIQUE: All CT scans are performed using dose optimization technique as appropriate and may inclu de automated exposure control or mA/KV adjustment according to patient size. FINDINGS: No intracranial hemorrhage, hydrocephalus or extra-axial fluid collection.No areas of brai n edema or evidence of midline shift. The paranasal sinuses and mastoids are clear. The calvarium is intact. IMPRESSION: No acute intracranial abnormality.
[2024-02-05 12:09] LABS: Specific Gravity 1.012 (1.005-1.030); Sqamous Epithelial <5 /HPF (None Seen); Urine Bacteria None Seen /HPF (<20); Urine Bilirubin NEGATIVE (Negative); Urine Blood Negative (Negative); Urine Clarity Clear (Clear); Urine Color Light-Yellow (Yellow); Urine Culture Reflex Order NOT NEEDED; Urine Glucose NEGATIVE (Negative); Urine Ketones NEGATIVE (Negative); Urine Microscopic Reflex YN ORDER UMIC; Urine Mucus Slight /HPF (None Seen); Urine Nitrite NEGATIVE (Negative); Urine Protein NEGATIVE (Negative); Urine RBC <5 /HPF (None Seen); Urine Urobilinogen Normal (Normal); Urine WBC <5 /HPF (<5); Urine pH 5.5 (5.0-7.0)
--- NOTE | 2024-02-05 12:16 | RAD REPORT ---
EXAM DESCRIPTION: RAD - Chest Single View - 02/05/2024 12:05 pm CLINICAL HISTORY: CHEST PAIN COMPARISON: Chest Single View dated 08/17/2023; Chest Single View dated 08/15/2023; Chest Single View [place] 07/01/2023; Chest Pa And Lat (2 Views) dated 01/26/2023 FINDINGS: Lines: None. Lungs: No evidence of edema or pneumonia. Pleural: No significant pleural effusions or pneumothorax. Cardiac: The heart size is within normal limits. Mediastinum: Within normal limits. Bones: No acute fractures. Sternotomy. Other: None IMPRESSION: No acute cardiopulmonary disease.
--- NOTE | 2024-02-05 13:42 | ER ---
Nurse's Notes [facility] Name: Alexander Walker Age: 68 yrs Sex: Male : 1955 Arrival Date: 02/05/2024 Time: 10:37 Bed 19 Private MD: Diagnosis: Bradycardia, unspecified;Syncope Near;Weakness Presentation: 02/04 10:40 Chief complaint: EMS states: "toned out for near syncope aftr mowing lawn. On arrival, mb9 pts HR was in the 20s and bgl 58. Administered 1 mg of Atropine and 15 mg of oral glucose. Pt HR now in 40s and bgl 70. Pt is diaphoretic and denies pain". 10:40 Coronavirus screen: Vaccine status: Patient reports receiving the 2nd dose of the covid mb9 vaccine. Ebola Screen: No symptoms or risks identified at this time. Initial Sepsis Screen: Does the patient meet any 2 criteria? Temp <36.0*C (96.8*F)) or > 38.3*C (100.9*F). Does the patient have a suspected source of infection? No. Patient's initial sepsis screen is negative. Risk Assessment: Do you want to hurt yourself or someone else? Patient reports no desire to harm self or others. Onset of symptoms was February 05, 2024. 10:40 Method Of Arrival: EMS: [facility] mb9 10:40 Acuity: RENY 2 mb9 Triage Assessment: 10:40 General: Appears uncomfortable, ill, Behavior is drowsy. mb9 10:40 Pain: Denies pain. EENT: No signs and/or symptoms were reported regarding the EENT mb9 system. Neuro: Level of Consciousness is awake, obeys commands, lethargic, Oriented to person, place, time, Flagger are equal bilaterally Moves all extremities. Gait is unsteady, Speech is normal, Facial symmetry appears normal, Pupils are PERRLA, Numbness in right arm, left arm, right leg and left leg Reports dizziness. Cardiovascular: Heart tones S1 S2 present Patient's skin is warm and dry. Respiratory: Airway is patent Respiratory effort is even, unlabored, Respiratory pattern is regular, symmetrical, Breath sounds are clear bilaterally. GI: Abdomen is round non-distended, Bowel sounds present X 4 quads. Abd is soft and non tender X 4 quads. : Reports odorous urine. Derm: Skin is intact, Skin is clammy, diaphoretic, Skin is pale, Skin temperature is cool. Musculoskeletal: Range of motion: intact in all extremities. Historical: - Allergies: 11:16 Ciprofloxacin; mb9 11:16 Latex; mb9 - Home Meds: 11:24 Trulicity 4.5 mg/0.5 mL subcutaneous Pen Injector every week [Active]; Lantus U-100 mb9 Insulin 100 unit/mL Sub-Q solution daily [Active]; aspirin 81 mg Oral TbEC 1 tab once daily [Active]; Humalog 100 unit/mL Sub-Q soln 13 unit three times a day [Active]; losartan 100 mg Oral tab 1 tab once daily [Active]; clopidogrel 75 mg Oral tab 1 tab once daily [Active]; carvedilol 12.5 mg oral tablet 1 tab 2 times per day [Active]; amiodarone 200 mg Oral tablet 1 tab for life-threatening ventricular tachycardia [Active]; rosuvastatin 10 mg Oral tab 1 tab once daily [Active]; pantoprazole 40 mg Oral TbEC 1 tab once daily [Active]; Lasix 20 mg oral tablet 1 tab once [Active]; - PMHx: 11:16 Anxiety; Hyperlipidemia; Diabetes - IDDM; Congestive heart failure; GERD; Hypertension; mb9 neuropathy; - PSHx: 11:16 3X bypass; right leg bypass; tesha rotator cuff sx; right leg stent; mb9 11:24 cardiac stent; thromboendarterectomy; mb9 - Immunization history:: Adult Immunizations up to date. - Infectious Disease History:: Denies. - Social history:: Smoking status: Patient denies any tobacco usage or history of. Screenin:19 [facility] ED Fall Risk Assessment (Adult) History of falling in the last 3 months, mb9 including since admission Yes- single mechanical fall (1 pt) Confusion or Disorientation No (0 pts) Intoxicated or Sedated No (0 pts) Impaired Gait Yes (1 pt) Mobility Assist Device Used No (0 pt) Altered Elimination Yes (1 pt) Score/Fall Risk Level 3 or more points = High Risk Oriented to surroundings, Maintained a safe environment, Educated pt \\T\\ family on fall prevention, incl call for assistance when getting out of bed. Abuse screen: Denies threats or abuse. Nutritional screening: No deficits noted. Tuberculosis screening: No symptoms or risk factors identified. Assessment: 10:55 Reassessment: family at bedside. mb9 11:30 Reassessment: Patient appears in no apparent distress at this time. No changes from mb9 previously documented assessment. Patient and/or family updated on plan of care and expected duration. Pain level reassessed. 12:50 Reassessment: Patient appears in no apparent distress at this time. No changes from mb9 previously documented assessment. Patient and/or family updated on plan of care and expected duration. Pain level reassessed. 13:37 Reassessment: Patient appears in no apparent distress at this time. No changes from mb9 previously documented assessment. Patient and/or family updated on plan of care and expected duration. Pain level reassessed. 14:32 Reassessment: Patient appears in no apparent distress at this time. No changes from mb9 previously documented assessment. Patient and/or family updated on plan of care and expected duration. Pain level reassessed. Patient is alert, oriented x 3, equal unlabored respirations, skin warm/dry/pink. 15:35 Reassessment: No changes from previously documented assessment. Patient and/or family mb9 updated on plan of care and expected duration. Pain level reassessed. Patient is alert, oriented x 3, equal unlabored respirations, skin warm/dry/pink. Vital Signs: 10:40 BP 122 / 48; Pulse 35; Resp 14; Temp 95.0(R); Pulse Ox 100% ; Weight 106.59 kg; Height mb9 5 ft. 11 in. ; 11:30 BP 162 / 66; Pulse 43; Resp 16; Pulse Ox 100% on R/A; mb9 11:30 BP 141 / 60; Pulse 38; Resp 14; Temp 94.3(Ca); Pulse Ox 99% ; mb9 12:50 BP 144 / 56; Pulse 38; Resp 14; Temp 94.6(Ca); Pulse Ox 99% on R/A; mb9 13:37 BP 148 / 60; Pulse 41; Resp 15; Temp 95.0(Ca); Pulse Ox 100% ; mb9 14:02 BP 154 / 55; Pulse 43; Resp 14; Temp 95.4(Ca); Pulse Ox 99% on R/A; mb9 14:32 BP 152 / 61; Pulse 43; Resp 15; Temp 95.8(Ca); Pulse Ox 100% ; mb9 15:30 BP 162 / 54; Pulse 44; Resp 14; Temp 96.7(Ca); Pulse Ox 95% on R/A; mb9 16:07 BP 156 / 56; Pulse 44; Resp 14; Temp 96.9(Ca); Pulse Ox 100% on R/A; mb9 10:40 Body Mass Index 32.78 (106.59 kg, 180.34 cm) mb9 ED Course: 10:38 Patient arrived in ED. sb4 10:38 Arm band placed on. mb9 10:39 Delfina Almendarez [facility]-C [facility]. sb4 10:39 Joseph Briggs MD is Attending Physician. sb4 10:40 Placed in gown. Bed in low position. Call light in reach. Side rails up X 1. Provided mb9 Education on: press call light if needing anything. Client placed on continuous cardiac and pulse oximetry monitoring. NIBP monitoring applied. hall monitor on. 10:40 Door closed. Noise minimized. Warm blanket given. Pillow given. mb9 10:40 Maintain EMS IV. Dressing intact. Good blood return noted. Site clean \\T\\ dry. Gauge \\T\\ mb 9 site: 22g left hand. 10:45 One-on-one care X 15 minutes. mb9 10:50 EKG done, by ED staff, reviewed by Delfina Almendarez PA-C. mb9 10:50 Initial lab(s) drawn, by or, sent to lab. Inserted saline lock: 20 gauge in left mb9 forearm, using aseptic technique. Blood collected. 11:00 One-on-one care X 30 minutes. mb9 11:00 Thermoregulation: warm blanket given to patient. Belkis blanket applied. mb9 11:13 Alondra Rodriguez, PK is Primary Nurse. mb9 11:16 Triage completed. mb9 11:[address] via stretcher. mb9 11:29 Head Brain Wo Cont CT In Process Unspecified. EDMS 11:50 Reed cath inserted, using sterile technique, 16 Fr., by me, balloon inflated, to mb9 gravity drainage, urine specimen collected. returned clear yellow urine. Patient tolerated well. 12:00 One-on-one care X 15 minutes. mb9 12:07 XRAY Chest (1 view) In Process Unspecified. EDMS 13:00 One-on-one care X 45 minutes. mb9 13:37 No provider procedures requiring assistance completed. mb9 13:[address] [facility] for Transfer for EP. talked to Romeo at the Transfer Center. sp 14:00 One-on-one care X 15 minutes. mb9 14:02 Patient transferred, IV remains in place. mb9 14:[address] Cristina Gordillo accepted pt to [facility] 1413 admin approval from Romeo Lo to [facility] [phone] fax # [phone] will go to bed 8B room 836. 15:00 One-on-one care X 15 minutes. mb9 15:09 called [facility] for transfer to [facility] talked with Irene. sp 15:30 One-on-one care X 15 minutes. mb9 Administered Medications: 13:50 Drug: Solu-CORTEF IVP 100 mg IVP once Route: IVP; Site: right hand; mb9 14:27 Follow up: Response: No adverse reaction mb9 13:55 Drug: Cefepime IVPB 2 grams IVPB at 200 ml/hr once over 30 mins; (mix in NS 100 mL) mb9 Route: IVPB; Rate: 200 ml/hr; Infused Over: 30 mins; Site: right hand; 14:27 Follow up: Response: No adverse reaction; IV Status: Completed infusion mb9 14:27 Drug: DOPamine 0.5 mcg/kg/min IV at 2.5 mcg/kg/min continuous Route: IV; Rate: 2.5 mb9 mcg/kg/min; Site: right hand; 15:48 Follow up: Response: No adverse reaction; IV Status: Infusion continued upon transfer mb9 Medication: 11:19 VIS not applicable for this client. mb9 Outcome: 13:41 ER care complete, transfer ordered by MD. borrero 15:[address] [facility], Transfer form mb9 completed. X-rays sent w/ patient. 15:00 Transferred Note: report given to transfer nurse PK [place] 15:00 Condition: stable 15:00 Instructed on the need for transfer, 16:47 Patient left the ED. mb9 Signatures: Dispatcher [employer] EDMS Manuel, Jaimie sp Brown, Delfina, PA-C PARene sb4 Alondra Rodriguez RN RN mb9 Corrections: (The following items were deleted from the chart) 11:14 11:13 Arm band placed on mb9 mb9
--- NOTE | 2024-02-05 13:42 | EDPHYS ---
Physician Documentation [facility] Name: Alexander Walker Age: 68 yrs Sex: Male : 1955 Arrival Date: 02/05/2024 Time: 10:37 Bed 19 Private MD: ED Physician Joseph Briggs HPI: 02/04 14:47 This 68 yrs old Male presents to ER via EMS with complaints of bradycardia, sb4 hypoglycemia. 14:47 Patient presents via EMS after having a near syncopal episode while outside this sb4 morning. When EMS arrived, they noted his heart rate to be 28 and his blood sugar to be 50. They administered 1 mg of atropine and 50 mg of oral glucose. Patient states he feels weak, lethargic, numb all over. He reports compliance with his medications. States that his blood sugar was in the 300s when he woke this morning and did eat and took his medications as usual. He denies any chest pain or shortness of breath. Historical: - Allergies: 11:16 Ciprofloxacin; mb9 11:16 Latex; mb9 - Home Meds: 11:24 Trulicity 4.5 mg/0.5 mL subcutaneous Pen Injector every week [Active]; Lantus U-100 mb9 Insulin 100 unit/mL Sub-Q solution daily [Active]; aspirin 81 mg Oral TbEC 1 tab once daily [Active]; Humalog 100 unit/mL Sub-Q soln 13 unit three times a day [Active]; losartan 100 mg Oral tab 1 tab once daily [Active]; clopidogrel 75 mg Oral tab 1 tab once daily [Active]; carvedilol 12.5 mg oral tablet 1 tab 2 times per day [Active]; amiodarone 200 mg Oral tablet 1 tab for life-threatening ventricular tachycardia [Active]; rosuvastatin 10 mg Oral tab 1 tab once daily [Active]; pantoprazole 40 mg Oral TbEC 1 tab once daily [Active]; Lasix 20 mg oral tablet 1 tab once [Active]; - PMHx: 11:16 Anxiety; Hyperlipidemia; Diabetes - IDDM; Congestive heart failure; GERD; Hypertension; mb9 neuropathy; - PSHx: 11:16 3X bypass; right leg bypass; tseha rotator cuff sx; right leg stent; mb9 11:24 cardiac stent; thromboendarterectomy; mb9 - Immunization history:: Adult Immunizations up to date. - Infectious Disease History:: Denies. - Social history:: Smoking status: Patient denies any tobacco usage or history of. ROS: 14:47 Cardiovascular: Negative for chest pain, palpitations, and edema, Respiratory: Negative sb4 for shortness of breath, cough, wheezing, and pleuritic chest pain, 14:47 Neuro: Positive for near syncope, weakness, 14:47 All other systems are negative, Exam: 14:47 Head/Face: Normocephalic, atraumatic. Eyes: Extra-ocular motions intact. Periorbital sb4 areas with no swelling, redness, or edema. Respiratory: Lungs have equal breath sounds bilaterally, clear to auscultation and percussion. No rales, rhonchi or wheezes noted. No increased work of breathing, no retractions or nasal flaring. Abdomen/GI: Soft, non-tender, no distension. 14:47 Constitutional: The patient appears alert, awake, obviously ill, pale, 14:47 Cardiovascular: Rate: bradycardic, Rhythm: regular, 14:47 Skin: Appearance: Temperature: cool, Vital Signs: 10:40 BP 122 / 48; Pulse 35; Resp 14; Temp 95.0(R); Pulse Ox 100% ; Weight 106.59 kg; Height mb9 5 ft. 11 in. ; 11:30 BP 162 / 66; Pulse 43; Resp 16; Pulse Ox 100% on R/A; mb9 11:30 BP 141 / 60; Pulse 38; Resp 14; Temp 94.3(Ca); Pulse Ox 99% ; mb9 12:50 BP 144 / 56; Pulse 38; Resp 14; Temp 94.6(Ca); Pulse Ox 99% on R/A; mb9 13:37 BP 148 / 60; Pulse 41; Resp 15; Temp 95.0(Ca); Pulse Ox 100% ; mb9 14:02 BP 154 / 55; Pulse 43; Resp 14; Temp 95.4(Ca); Pulse Ox 99% on R/A; mb9 14:32 BP 152 / 61; Pulse 43; Resp 15; Temp 95.8(Ca); Pulse Ox 100% ; mb9 15:30 BP 162 / 54; Pulse 44; Resp 14; Temp 96.7(Ca); Pulse Ox 95% on R/A; mb9 16:07 BP 156 / 56; Pulse 44; Resp 14; Temp 96.9(Ca); Pulse Ox 100% on R/A; mb9 10:40 Body Mass Index 32.78 (106.59 kg, 180.34 cm) mb9 MDM: 10:40 Patient medically screened. sb4 13:42 Management of patient was discussed with the following: Construction Project Coordinator: Dr. Treviño, sb4 recommends transfer for pacemaker. Historians other than the Patient: and daughter. ED course: family requests transfer to [facility]. 14:47 Data reviewed: vital signs, nurses notes, lab test result(s), EKG, radiologic studies, sb4 I have discussed the patient's presentation/case with the attending Emergency Department Physician;. Consideration of Admission/Observation Patient was admitted/placed on observation. Care significantly affected by the following chronic conditions: Diabetes, Hypertension, Congestive Heart Failure, Obesity. Counseling: I had a detailed discussion with the patient and/or guardian regarding the historical points, exam findings, and any diagnostic results supporting the discharge/admit diagnosis, lab results, radiology results, the need to transfer to another facility, for higher level of care, [facility] does not immediately have the required specialist. 02/04 10:53 Order name: Blood Culture Adult (2) [facility] 02/04 10:53 Order name: CBC with Diff; Complete Time: 11:26 [facility] 02/04 10:53 Order name: CMP; Complete Time: 11: [facility] 02/04 10:53 Order name: Lactate w/ 2H reflex if indic.; Complete Time: 11:58 [facility] 02/04 10:53 Order name: Protime (+inr); Complete Time: 11:33 [facility] 02/04 10:53 Order name: Ptt, Activated; Complete Time: 11:33 [facility] 02/04 10:53 Order name: Urinalysis w/ reflexes; Complete Time: 12:12 [facility] 02/04 10:53 Order name: NT PRO-BNP; Complete Time: 11:26 [facility] 02/04 10:53 Order name: Troponin HS; Complete Time: 11: [facility] 02/04 11:10 Order name: Glucose, Ancillary Testing; Complete Time: 11:12 EDMS 02/04 10:53 Order name: XRAY Chest (1 view); Complete Time: 12:17 sb4 02/04 10:57 Order name: Head Brain Wo Cont CT; Complete Time: 11:38 sb4 02/04 10:53 Order name: Accucheck; Complete Time: 11:20 sb4 02/04 10:53 Order name: Cardiac monitoring; Complete Time: 11:20 sb4 02/04 10:53 Order name: EKG - Nurse/Tech; Complete Time: 11:20 sb4 02/04 10:53 Order name: IV Saline Lock - Large Bore; Complete Time: 11:20 sb4 02/04 10:53 Order name: Labs collected and sent; Complete Time: 11:20 sb4 02/04 10:53 Order name: O2 Per Protocol; Complete Time: 11:20 sb02/04 10:53 Order name: O2 Sat Monitoring; Complete Time: 11:20 sb02/04 10:53 Order name: Vital Signs; Complete Time: 11:20 sb4 EC:17 Rate is 47 beats/min. Rhythm is regular, Sinus bradycardia with Right bundle branch sb4 block. Left axis deviation noted. UT interval is normal at 184 msec. QRS interval is normal at 182 msec. QT interval is prolonged at 536 msec. Clinical impression: Sinus bradycardia. Interpreted by me. Reviewed by me. Administered Medications: 13:50 Drug: Solu-CORTEF IVP 100 mg IVP once Route: IVP; Site: right hand; mb9 14:27 Follow up: Response: No adverse reaction mb9 13:55 Drug: Cefepime IVPB 2 grams IVPB at 200 ml/hr once over 30 mins; (mix in NS 100 mL) mb9 Route: IVPB; Rate: 200 ml/hr; Infused Over: 30 mins; Site: right hand; 14:27 Follow up: Response: No adverse reaction; IV Status: Completed infusion mb9 14:27 Drug: DOPamine 0.5 mcg/kg/min IV at 2.5 mcg/kg/min continuous Route: IV; Rate: 2.5 mb9 mcg/kg/min; Site: right hand; 15:48 Follow up: Response: No adverse reaction; IV Status: Infusion continued upon transfer mb9 Disposition: 19:33 Co-signature as Attending Physician, Joseph Briggs MD I reviewed the patient's care rt provided by the Advanced Practice Provider and agree with the diagnosis and treatment plan. Disposition Summary: 02/05/24 13:41 Transfer Ordered Notes: Transfer Location: [facility] sb4 Reason: Higher level of care sb4 Condition: Serious sb4 Problem: new sb4 Symptoms: are unchanged sb4 Accepting Physician: cardiology(02/05/24 16:47) [email or web address] Diagnosis - Bradycardia, unspecified sb4 - Syncope Near sb4 - Weakness sb4 Forms: - Medication Reconciliation Form sb4 - SBAR form sb4 Critical care time excluding procedures: 14:37 Critical care time: Bedside Care: 15 minutes, Consultation: 15 minutes, Family sb4 Intervention: 10 minutes. Total time: 40 minutes Signatures: Dispatcher [employer] EDMS Delfina Almendarez PA-C PA-C sb4 Alondra Rodriguez RN RN mb9 Joseph Briggs MD MD rt Corrections: (The following items were deleted from the chart) 10:54 10:54 BLOOD CULTURE*+BA.LAB.BRZ ordered. EDMS EDMS 10:54 10:54 CBC+H.LAB.BRZ ordered. EDMS EDMS 10:54 10:54 COMPREHENSIVE METABOLIC PANEL+C.LAB.BRZ ordered. EDMS EDMS 10:54 10:54 LACTATE+C.LAB.BRZ ordered. EDMS EDMS 10:54 10:54 PROTIME (+INR)+COAG.LAB.BRZ ordered. EDMS EDMS 10:54 10:54 PTT, ACTIVATED+COAG.LAB.BRZ ordered. EDMS EDMS 10:54 10:54 Urinalysis+U.LAB.BRZ ordered. EDMS EDMS 10:54 10:54 PROBNP+C.LAB.BRZ ordered. EDMS EDMS 10:54 10:54 Troponin High Sensitivity+C.LAB.BRZ ordered. EDMS EDMS 10:54 10:54 Chest Single View+RAD.RAD.BRZ ordered. EDMS EDMS 10:58 10:58 Head Brain Wo Cont+CT.RAD.BRZ ordered. EDMS EDMS 16:47 13:41 cardiology sb4 mb9
[2024-02-05] MEDS ORDERED: HYDROCORTISONE SUC 100 MG INJ ONE (13:44)
[2024-02-05] MEDS ORDERED: CEFEPIME 2 GM VIAL ONE (13:44)
[2024-02-05] MEDS ORDERED: NA CHLORIDE 0.9% 100 ML ONE (13:45)
[2024-02-05] MEDS ORDERED: DOPAMINE/D5W 400 MG/250 ML BAG IV ONE (14:18)
[2024-02-05 21:30] VITALS: BP 156/56; TEMP 96.9; O2SAT 100
--- NOTE | 2024-02-06 13:06 | EKG ---
Test Date: 2024-02-05 Test Time: 10:47:05 Magazine Keeper: BI MEASUREMENT RESULTS: Intervals: Rate: 47 TN: 184 QRSD: 182 QT: 536 QTc: 474 [place]: P: 46 TN: 184 QRS: -71 T: 12 INTERPRETIVE STATEMENTS: Sinus bradycardia Left axis deviation Right bundle branch block Abnormal ECG Compared to ECG 08/17/2023 10:04:42 Sinus rhythm no longer present Ventricular premature complex(es) no longer present Myocardial infarct finding no longer present Electronically Signed On 02-06-24 13:03:14 CDT by Dalton Treviño
== END 2024-02-05 16:47 | disposition short-term general hospital (02) ==
LOC: ER 10:37
DX: R00.1 Bradycardia, unspecified (principal); R55 Syncope and collapse; R53.1 Weakness; E11.9 Type 2 diabetes mellitus without complications; Z95.818 Presence of other cardiac implants and grafts; Z79.4 Long term (current) use of insulin
CPT/HCPCS: 87040 ×2; 85025; 81001; 36415; 85610; 82947; 83605; 85730; 84484; 80053; 83880; 70450; 71045; J0692; J1720; J1265; 51702; 93005; 96365; 96367; 96375; 99291